=== PATIENT | male | born 1945 | race Hispanic/Latino ===

== ENCOUNTER 2018-07-12 10:40 | Inpatient (IN) | payer MEDICARE ==
--- NOTE | 2018-07-12 11:50 | ED PDOC ---
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 The patient notes that he was seen by his PMD a few weeks ago, who took blood work and called him asking him to be evaluated in the emergency department for his kidneys. Patient also reports left foot pain, at his toes. The patient is a poor historian. Patient denies fevers, chills, headache, dizziness, chest pain, shortness of breath, dyspnea on exertion, cough, abdominal pain, nausea, vomiting, diarrhea, back pain, neck pain, urinary/bowel changes, or any other complaint. PMD: Dr. Weinstein Time/Duration: Other (Several days) Symptom Onset: Sudden Symptom Course: Unchanged Activities at Onset: Rest, Light Context: Home Past Medical History - Provider Review Nursing Documentation Reviewed: Yes - Endocrine/Metabolic Hx Diabetes Mellitus Type 2: Yes - Psychiatric Hx Substance Use: No - Surgical History Other/Comment: Hernia repair. Foot surgery Family/Social History - Physician Review Nursing Documentation Reviewed: Yes Family/Social History: No Known Family HX Smoking Status: Unknown If Ever Smoked Hx Alcohol Use: No Hx Substance Use: No Allergies/Home Meds Allergies/Adverse Reactions: Allergies No Known Allergies Allergy (Verified 07/12/18 10:58) Home Medications: Home Meds Medication Instructions Recorded Confirmed Unobtainable 07/12/18 07/12/18 Review of Systems - Physician Review All systems were reviewed & negative as marked: Yes - Review of Systems Constitutional: absent: Fevers Respiratory: absent: SOB, Cough Cardiovascular: absent: [place] Gastrointestinal: absent: Abdominal Pain, Stool Changes, Diarrhea, Nausea, Vomiting, Appetite Changes Genitourinary Male: absent: Urinary Output Changes Musculoskeletal: Other (Left foot pain. ). absent: Back Pain, Neck Pain Neurological: absent: Headache, Dizziness Physical Exam Vital Signs Reviewed: Yes Vital Signs Temp Pulse Resp BP Pulse Ox 07/12/18 10:56 98.5 F 69 18 143/85 99 Temperature: Afebrile Blood Pressure: Normal Pulse: Regular Respiratory Rate: Normal Appearance: Positive for: Well-Appearing, Non-Toxic, Comfortable Pain Distress: None Mental Status: Positive for: Alert and Oriented X 3 - Systems Exam Head: Present: Atraumatic, Normocephalic Pupils: Present: PERRL Extroacular Muscles: Present: EOMI Conjunctiva: Present: Normal Mouth: Present: Moist Mucous Membranes Neck: Present: Normal Range of Motion Respiratory/Chest: Present: Clear to Auscultation, Good Air Exchange. No: Respiratory Distress, Accessory Muscle Use Cardiovascular: Present: Regular Rate and Rhythm, Normal S1, S2. No: Murmurs Abdomen: No: Tenderness, Distention, Peritoneal Signs Back: Present: Normal Inspection Upper Extremity: Present: Normal Inspection. No: Cyanosis, Edema Lower Extremity: Present: Normal Inspection, NORMAL PULSES, Neurovascularly Intact, Capillary Refill < 2 s, Other (L 2nd digit amputation, Ulceration to 3rd / 1st digit with yellowish d/c/ mildly TTP. No crepitus. ). No: Edema, Erythema Neurological: Present: GCS=15, CN II-XII Intact, Speech Normal Skin: Present: Warm, Dry, Normal Color. No: Rashes Psychiatric: Present: Alert, Oriented x 3, Normal Insight, Normal Concentration Medical Decision Making ED Course and Treatment: 07/12/18 11:51 Impression: A 72 year old male presents to the emergency department with a complaint of kidney issue and LLE foot pain. Sent by PMD mainly for kidney issues. Unk baseline kidney labs. Denies any trauma or fall. Notes chronic LLE pain. On exam L 2nd toe amputation with ?pus noted between 1st and 3rd digit. No fall or trauma. N/V intact in b/l LE. Plan: -- Left Foot X- Ray -- EKG -- Labs -- Blood Culture -- Reassess and disposition Progress Notes: 07/12/18 12:07:4: Podiatry resident called. 07/12/18 12:35 Appreciate consult w/ Delilah Chavez (covering for PMD) - Unk last Cr- likely EMIL HyperK, EKG pending Ordered, insulin + d50, albuterol 07/12/18 12:47 EKG 63, nsr, no stemi, non-sinusoidal, T waves non peaked. 07/12/18 14:[address] Anuradha reccomended arterial dopplers: ordered. pt in NAD. - Lab Interpretations I have reviewed the lab results: Yes - RAD Interpretation Narrative RAD Interpretations (Text): PROCEDURE: Left Foot Radiographs. Dictator : Rashaad Gonsales MD Report Date : 07/12/2018 14:20:02 IMPRESSION: Findings suspicious for multifocal osteomyelitis at the great toe, 1st metatarsal bone as well as the proximal segments of the 3rd and 4th metatarsal bones. Diffuse degenerative joint disease throughout the left foot. Prior 2nd digit subtotal amputation evident. MRI is available for follow-up if clinically warranted. Radiology Orders: 07/12/18 11:30 FOOT LEFT 3 VIEWS ROUTINE [RAD] Stat - EKG Interpretation EKG Interpretation (Text): EKG: Ordered, reviewed, and independently interpreted the EKG. Rate : 63 BPM Rhythm : NSR Interpretation : No STEMI. Interpreted by ED Physician: Yes Type: 12 lead EKG - Scribe Statement The provider has reviewed the documentation as recorded by the Scribe Serena Wei Provider Scribe Attestation: All medical record entries made by the Scribe were at my direction and personally dictated by me. I have reviewed the chart and agree that the record accurately reflects my personal performance of the history, physical exam, medical decision making, and the department course for this patient. I have also personally directed, reviewed, and agree with the discharge instructions and disposition. Disposition/Present on Arrival - Present on Arrival Any Indicators Present on Arrival: No History of DVT/PE: No History of Uncontrolled Diabetes: No Urinary Catheter: No History of Decub. Ulcer: No History Surgical Site Infection Following: None - Disposition Have Diagnosis and Disposition been Completed?: Yes Diagnosis: EMIL (acute kidney injury), Toe infection, Hyperkalemia Disposition Time: 14:04 Patient Problems: Current Active Problems Problem Status Onset EMIL (acute kidney injury) Acute Toe infection Acute Hyperkalemia Acute Condition: GOOD
[2018-07-12 12:10] LABS: BASO # 0.02 K/mm3 (0.0-2.0); BASO % 0.2 % (0.0-3.0); EOS # 0.5 (0.0-0.7); EOS % 5.8 % (1.5-5.0); GRAN # 6.23 (1.4-6.5); GRAN % 72.3 % (50.0-68.0); HEMOGLOBIN 9.8 g/dL (14.0-18.0); LYMPH # 1.3 (1.2-3.4); LYMPH % 14.5 % (22.0-35.0); MEAN CELL VOLUME 102.7 fl (80.0-105.0); MEAN CORPUSCULAR HGB CONC 32.1 g/dl (31.0-37.0); MEAN PLATELET VOLUME 10.1 fl (7.0-11.0); MONO # 0.6 (0.1-0.6); MONO % 7.2 % (1.0-6.0); RBC 2.97 10^6/uL (3.5-6.1); RED CELL DISTRIBUTION WIDTH 16.3 % (11.5-14.5); WHITE BLOOD COUNT 8.6 10^3/uL (4.5-11.0)
[2018-07-12 12:29] LABS: ALB/GLOB RATIO 1.4 (1.1-1.8); ALBUMIN 4.1 g/dL (3.0-4.8); ALT/SGPT 28 U/L (7-56); AST/SGOT 28 U/L (17-59); BLOOD UREA NITROGEN 58 mg/dL (7-21); GFR NON-AFRICAN AMERICAN 23
[2018-07-12] MEDS ORDERED: Albuterol 0.5% Inhal Sol (2.5 mg/0.5 ml) UD IH STA (12:37)
[2018-07-12] MEDS ORDERED: Dextrose 50% SYRINGE Inj (50 ml) IVP STA (12:38)
[2018-07-12] MEDS ORDERED: Insulin Regular 1 UNITS/0.01 ML ML IV ONE (12:39)
[2018-07-12] MEDS ORDERED: Piperacillin/Tazobact 3.375 gm 100 ML IVPB STA (12:52)
[2018-07-12] MEDS: Vancomycin 1gm in NS 250ml 1 GM/250 ML BAG IVPB STA ×2 (13:28→15:48)
--- NOTE | 2018-07-12 14:23 | RAD ---
Date of service: 07/12/2018 PROCEDURE: Left Foot Radiographs. HISTORY: L foot pain, 2nd toe amptuation COMPARISON: None. FINDINGS: BONES: Prior subtotal amputation 2nd digit. Soft tissue edema and heterogeneous bony changes are both erosive and productive at the proximal phalanx left great toe and distal segment 1st metatarsal bone as well as both sesamoid bones in a pattern suspicious for osteomyelitis and cellulitis. Erosive changes at the tuft of the distal phalanx great toe are suspicious for the same. Similar additional changes affect the cuboid and navicular bones as well as the proximal segments of the 3rd and 4th metatarsal bones, also suspicious for osteomyelitis. Diffuse osteopenia suggests osteoporosis. Vascular calcification identified in the dorsal and plantar soft tissues. JOINTS: No subluxation or dislocation. Degenerative changes are seen on a moderate basis diffusely throughout the joints of the left foot and the ankle. Gross hallux valgus deformity. SOFT TISSUES: See bone section above. OTHER FINDINGS: None. IMPRESSION: Findings suspicious for multifocal osteomyelitis at the great toe, 1st metatarsal bone as well as the proximal segments of the 3rd and 4th metatarsal bones. Diffuse degenerative joint disease throughout the left foot. Prior 2nd digit subtotal amputation evident. MRI is available for follow-up if clinically warranted.
--- NOTE | 2018-07-12 14:52 | CP.PCM.CON ---
History of Present Illness - History of Present Illness History of Present Illness: Podiatry Consult Note: Dr. Milton Heller 72M patient, with PMHx of DM, gout, arthritis, and 2nd digit amputation (09/2017), seen and evaluated for left foot ulceration. Patient states that he had a second digit amputation at [facility] however was sent to the ED for further evaluation of his blood work. He states that he has had the ulceration to his surgical site for a while, however it is not healing. He reports having gout problems to his feet and very bad arthritis that limits his motion. He denies any other pedal complaints at this time. Denies N/V/F/SOB/CP. PMHx: as above SHx: 2nd digit amputation Social: former tobacco use ALL: NKDA Review of Systems - Review of Systems Review of Systems: As per HPI Past Patient History - Past Social History Smoking Status: Unknown If Ever Smoked - ENDOCRINE/METABOLIC Hx Diabetes Mellitus Type 2: Yes - PSYCHIATRIC Hx Substance Use: No - SURGICAL HISTORY Other/Comment: Hernia repair. Foot surgery Meds Allergies/Adverse Reactions: Allergies Allergy/AdvReac Type Severity Reaction Status Date / Time No Known Allergies Allergy Verified 07/12/18 10:58 - Medications Medications: Current Medications Acetaminophen (Tylenol 325mg Tab) 650 mg PO Q6 PRN PRN Reason: TEMP>=99.5F Acetaminophen (Tylenol 650 Mg Supp) 650 mg RC Q6H PRN PRN Reason: TEMP>=99.5F Aspirin (Ecotrin) 81 mg PO DAILY [facility] Docusate Sodium (Colace) 100 mg PO TID [facility] Docusate Sodium (Colace) 100 mg PO TID [facility] Heparin Sodium (Porcine) (Heparin) 5,000 units SC Q8 [facility]; Protocol Insulin Human Lispro (Humalog Med) 0 units SC AC [facility]; Protocol Ondansetron HCl (Zofran Inj) 4 mg IVP Q4H PRN PRN Reason: Nausea/Vomiting Pantoprazole Sodium (Protonix Ec Tab) 40 mg PO 0600 [facility] Physical Exam - Constitutional Appears: No Acute Distress - Head Exam Head Exam: ATRAUMATIC, NORMOCEPHALIC - Extremities Exam Additional comments: B/L lower extremity focused exam: Vascular: DP/PT non-palpable, CFT > 3 seconds to digits x9, TG warm to cool bilaterally, +1 edema appreciated to dorsal aspect of feet b/l Ortho: Tenderness to palpation of gouty nodules to L foot, MMT 4/5, rigit HAV deformity bilaterally, rigid 3rd digit HT to left Neuro: Gross sensation intact, protective sensation diminished Derm: Ulceration noted to first interspace on the L at the site of previous second digit amputation. Measuring about 2 x 1 x .1 cm, 100% fibrotic base, mild serous drainage, no purulence, no tunneling appreciated. Interdigital maceration appreciated to other webspaces. Elongated, dystrophic nails x9 - Neurological Exam Neurological exam: Alert, Oriented x3 Results - Vital Signs Recent Vital Signs: Last Vital Signs Temp 98.4 F 07/12/18 13:43 Pulse 63 07/12/18 13:43 Resp 19 07/12/18 13:43 BP 119/61 07/12/18 13:43 Pulse Ox 100 07/12/18 13:43 - Labs Result Diagrams: 07/12/18 11:56 07/12/18 11:56 Labs: Laboratory Results - last 24 hr 07/12/18 07/12/18 11:56 11:56 WBC 8.6 RBC 2.97 L Hgb 9.8 L Hct 30.5 L MCV 102.7 MCH 33.0 MCHC 32.1 RDW 16.3 H Plt Count 284 MPV 10.1 Gran % 72.3 H Lymph % (Auto) 14.5 L [place] % (Auto) 7.2 H Eos % (Auto) 5.8 H Baso % (Auto) 0.2 Gran # 6.23 Lymph # (Auto) 1.3 [place] # (Auto) 0.6 Eos # (Auto) 0.5 Baso # (Auto) 0.02 Sodium 141 Potassium 5.9 H* Chloride 115 H Carbon Dioxide 19 L Anion Gap 13 BUN 58 H Creatinine 2.7 H Est GFR ( Amer) 28 Est GFR (Non-Af Amer) 23 Random Glucose 106 Calcium 9.0 Total Bilirubin 0.5 AST 28 ALT 28 Alkaline Phosphatase 66 Total Protein 7.1 Albumin 4.1 Globulin 3.0 Albumin/Globulin Ratio 1.4 Assessment & Plan - Assessment and Plan (Free Text) Assessment: 72M patient, with PMHx of DM, gout, arthritis, and 2nd digit amputation (09/2017), seen and evaluated for left foot ulceration and PAD. Plan: Patient seen and evaluated Discussed patient with Dr. Pina GREEN, WBC 8.6 L foot wound culture; pending L foot x-rays taken; suspicious for OM at hallux, 1st met, 3rd and 4th mets. Diffuse degenerative joint disease throughout L foot, prior 2nd digit amp Local wound care; betadine and DSD Lower extremity MRI ordered; pending Local wound care; betadine between digits, DSD Non-invasive vascular studies ordered; pending Vasc consult; reccs appreciated Will continue to follow Thank you for the consult and allowing us to partake in the care of this patient - Date & Time Date: 07/12/18 Time: 16:26
[2018-07-12 15:26] LABS: URIC ACID 6.2 mg/dL (3.5-8.5)
[2018-07-12 15:36] LABS: TROPONIN I < 0.01 ng/mL
[2018-07-12] MEDS ORDERED: Sod Polystyrene Sulf 15 gm/60 ml Susp PO STA (16:44)
--- NOTE | 2018-07-12 16:48 | CP.PCM.CON ---
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 PMD Dr Negron's office was contacted, however, could not speak to him as he is on vacation. Spoke with patient's son, Sheri, regarding patient's health. Patient states that his bilateral lower extremities are mildly swollen, and his left foot hurts. Patient reports mild redness, swelling in the left toes. Earlier this year, he had a left foot 2nd digit [place] [facility] [place] something [place] foot. Currently, denies loss of sensation, paresthesias, nausea, vomiting, fevers, cough, sob, chest pain, urinary frequency, hesitancy, dysuria. In ED, patient afebrile, vitals stable. Labs significant for Hgb 9.8, hyperkalemia 5.9, BUN/Cr 58/2.7. Patient given Vanc, Zosyn, regular insulin 10 u IV with D50, albuterol inhaler. 12 point ROS obtained and neg, except as per HPI. PMHx: DM, gout, arthritis SHx: 2nd digit amputation (09/2017), hernia repair All: NKA FH: reviewed, noncontributory Social: former tobacco and alcohol use, quit 5 years ago. lives in [facility]. Was visiting his son in [place]. Walks with a cane. Home Meds: ibuprofen, gabapentin 800 mg tid, ASA 81 mg, allopurinol 100 gm bid, colace 100 mg bid, ferrous sulfate 325 mg bid, protonix 40 mg daily, glipizide 10 mg 1 tab bid Review of Systems - Review of Systems All systems: reviewed and no additional remarkable complaints except Review of Systems: as per HPI Past Patient History - Past Social History Smoking Status: Unknown If Ever Smoked - ENDOCRINE/METABOLIC Hx Diabetes Mellitus Type 2: Yes - PSYCHIATRIC Hx Substance Use: No - SURGICAL HISTORY Other/Comment: Hernia repair. Foot surgery Meds Allergies/Adverse Reactions: Allergies Allergy/AdvReac Type Severity Reaction Status Date / Time No Known Allergies Allergy Verified 12/17/18 10:58 - Medications Medications: Current Medications Acetaminophen (Tylenol 325mg Tab) 650 mg PO Q6 PRN PRN Reason: TEMP>=99.5F Acetaminophen (Tylenol 650 Mg Supp) 650 mg RC Q6H PRN PRN Reason: TEMP>=99.5F Aspirin (Ecotrin) 81 mg PO DAILY [facility] Docusate Sodium (Colace) 100 mg PO TID [facility] Docusate Sodium (Colace) 100 mg PO TID [facility] Heparin Sodium (Porcine) (Heparin) 5,000 units SC Q8 [facility]; Protocol Last Admin: 07/12/18 15:49 Dose: 5,000 units Insulin Human Lispro (Humalog Med) 0 units SC AC [facility]; Protocol Ondansetron HCl (Zofran Inj) 4 mg IVP Q4H PRN PRN Reason: Nausea/Vomiting Pantoprazole Sodium (Protonix Ec Tab) 40 mg PO 0600 [facility] Physical Exam - Constitutional Appears: Non-toxic, No Acute Distress - Head Exam Head Exam: ATRAUMATIC, NORMOCEPHALIC - Eye Exam Eye Exam: EOMI, PERRL. absent: Conjunctival injection, Nystagmus, Scleral icterus Pupil Exam: NORMAL ACCOMODATION, PERRL. absent: Irregular, Miosis, Mydriatic - ENT Exam ENT Exam: Mucous Membranes Moist - Neck Exam Neck exam: Positive for: Full Rom - Respiratory Exam Respiratory Exam: Clear to Auscultation Bilateral, NORMAL BREATHING PATTERN. absent: Accessory Muscle Use, Rales, Rhonchi, Wheezes, Respiratory Distress, Stridor - Cardiovascular Exam Cardiovascular Exam: RRR, +S1, +S2. absent: Systolic Murmur - GI/Abdominal Exam GI & Abdominal Exam: Normal Bowel Sounds, Soft. absent: Distended, Firm, Guarding, Organomegaly, Rebound, Tenderness - Extremities Exam Extremities exam: Positive for: pedal edema Additional comments: + both lower extremities warm to touch, + dopplerable posterior tibialis pulses bilaterally. No dopplerable posterior tibialis pulses b/l. - Back Exam Back exam: NORMAL INSPECTION - Neurological Exam Neurological exam: Alert, Oriented x3 - Psychiatric Exam Psychiatric exam: Normal Affect, Normal Mood - Skin Skin Exam: Dry, Normal Color, Warm Results - Vital Signs Recent Vital Signs: Last Vital Signs Temp 98.1 F 07/12/18 15:34 Pulse 75 07/12/18 15:34 Resp 16 07/12/18 15:34 BP 117/59 L 07/12/18 15:34 Pulse Ox 100 07/12/18 15:34 - Labs Result Diagrams: 07/12/18 11:56 07/12/18 11:56 Labs: Laboratory Results - last 24 hr 07/12/18 07/12/18 07/12/18 11:56 11:56 15:10 WBC 8.6 RBC 2.97 L Hgb 9.8 L Hct 30.5 L MCV 102.7 MCH 33.0 MCHC 32.1 RDW 16.3 H Plt Count 284 MPV 10.1 Gran % 72.3 H Lymph % (Auto) 14.5 L [place] % (Auto) 7.2 H Eos % (Auto) 5.8 H Baso % (Auto) 0.2 Gran # 6.23 Lymph # (Auto) 1.3 [place] # (Auto) 0.6 Eos # (Auto) 0.5 Baso # (Auto) 0.02 ESR 30 H Sodium 141 Potassium 5.9 H* Chloride 115 H Carbon Dioxide 19 L Anion Gap 13 BUN 58 H Creatinine 2.7 H Est GFR ( Amer) 28 Est GFR (Non-Af Amer) 23 Random Glucose 106 Uric Acid 6.2 Calcium 9.0 Total Bilirubin 0.5 AST 28 ALT 28 Alkaline Phosphatase 66 Total Creatine Kinase 125 Troponin I < 0.01 Total Protein 7.1 Albumin 4.1 Globulin 3.0 Albumin/Globulin Ratio 1.4 Assessment & Plan - Assessment and Plan (Free Text) Assessment: 72 year old male with PMH DM, gout, amputation of 2nd digit of left foot, presents for left foot pain, found to have EMIL, hyperkalemia, anemia: Left foot ulcer: likely osteomyelitis vs cellulitis vs peripheral artery disease - foot x ray showed findings suspicious for multifocal osteomyelitis at the great toe, 1st metatarsal bone as well as the proximal segments of the 3rd and 4th metatarsal bones. Diffuse degenerative joint disease throughout the left foot. Prior 2nd digit subtotal amputation evident. - F/u venous, arterial doppler of LE. - Arterial doppler reviewed with Dr Lujan, will possibly go for angiogram (on thursday) - F/u esr, crp, blood cultures - afebrile, no leukocytosis - obtain optimal glycemic control. f/u A1C - ID, podiatry, cardio consulted. f/u recs. - Vascular surgery consult. - Vanc and Zosyn in ED. F/u ID recs. EMIL vs EMIL on CKD: 2/2 ibuprofen induced vs pre-renal vs obstruction - bladder scan - avoid NSAIDs - tylenol prn arthritic pain - BUN/Cr 58/2.7 (unknown baseline), ratio 21.48, indicative of pre-renal etiolog y. - f/u usom, serum osm, masha, ucl. calculate fena - IVF @ 80 - nephro consulted. f/u recs. - CPK normal - monitor Hyperkalemia: - K 5.9 on admission - EKG showed no peaked T waves - Given regular insulin 10 units IV with D50, albuterol - will give Kayexalate. repeat Potassium level in PM. - monitor CMP Marcocytic anemia: - Hgb 9.8, MCV 102.7 - F/u iron studies, b12, folate, MMA - vitals stable, monitor Constipation: - colace tid PPX: heparin subq, protonix Carb consistent diet Case discussed with Dr Ling.
[2018-07-12] MEDS ORDERED: Heparin25000 units/250ml 1/2NS 25,000 UNITS/250 ML BAG IV SCH (17:30)
[2018-07-12] MEDS ORDERED: Sodium Chloride 0.9% 1,000 ML IV SCH (18:15)
[2018-07-12 18:29] LABS: PARTIAL THROMBOPLASTIN TIME 27.5 Seconds (25.1-36.5); PROTHROMBIN TIME 11.4 SECONDS (9.4-12.5)
--- NOTE | 2018-07-12 18:44 | CP.PCM.HP ---
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 PMD Dr Negron's office was contacted, however, could not speak to him as he is on vacation. Spoke with patient's son, Sheri, regarding patient's health. Patient states that his bilateral lower extremities are mildly swollen, and his left foot hurts. Patient reports mild redness, swelling in the left toes. [place] this [place], [place] [facility] [place] Currently, denies loss of sensation, paresthesias, nausea, vomiting, fevers, cough, sob, chest pain, urinary frequency, hesitancy, dysuria. In ED, patient afebrile, vitals stable. Labs significant for Hgb 9.8, hyperkalemia 5.9, BUN/Cr 58/2.7. Patient given Vanc, Zosyn, regular insulin 10 u IV with D50, albuterol inhaler. 12 point ROS obtained and neg, except as per HPI. PMHx: DM, gout, arthritis SHx: 2nd digit amputation (09/2017), hernia repair All: NKA FH: reviewed, noncontributory Social: former tobacco and alcohol use, quit 5 years ago. lives in [facility]. Was visiting his son in [place]. Walks with a cane. Home Meds: ibuprofen, gabapentin 800 mg tid, ASA 81 mg, allopurinol 100 gm bid, colace 100 mg bid, ferrous sulfate 325 mg bid, protonix 40 mg daily, glipizide 10 mg 1 tab bid Present on Admission - Present on Admission Any Indicators Present on Admission: No History of DVT/PE: No History of Uncontrolled Diabetes: No Urinary Catheter: No Decubitus Ulcer Present: No Review of Systems - Review of Systems All systems: reviewed and no additional remarkable complaints except Review of Systems: as per HPI Past Patient History - Past Social History Smoking Status: Unknown If Ever Smoked - ENDOCRINE/METABOLIC Hx Diabetes Mellitus Type 2: Yes - PSYCHIATRIC Hx Substance Use: No - SURGICAL HISTORY Other/Comment: Hernia repair. Foot surgery Meds Allergies/Adverse Reactions: Allergies Allergy/AdvReac Type Severity Reaction Status Date / Time No Known Allergies Allergy Verified 07/12/18 10:58 Physical Exam - Additional Findings Additional findings: - Constitutional Appears: Non-toxic, No Acute Distress - Head Exam Head Exam: ATRAUMATIC, NORMOCEPHALIC - Eye Exam Eye Exam: EOMI, PERRL. absent: Conjunctival injection, Nystagmus, Scleral icterus Pupil Exam: NORMAL ACCOMODATION, PERRL. absent: Irregular, Miosis, Mydriatic - ENT Exam ENT Exam: Mucous Membranes Moist - Neck Exam Neck exam: Positive for: Full Rom - Respiratory Exam Respiratory Exam: Clear to Auscultation Bilateral, NORMAL BREATHING PATTERN. absent: Accessory Muscle Use, Rales, Rhonchi, Wheezes, Respiratory Distress, Stridor - Cardiovascular Exam Cardiovascular Exam: RRR, +S1, +S2. absent: Systolic Murmur - GI/Abdominal Exam GI & Abdominal Exam: Normal Bowel Sounds, Soft. absent: Distended, Firm, Gua rding, Organomegaly, Rebound, Tenderness - Extremities Exam Extremities exam: Positive for: pedal edema Additional comments: + both lower extremities warm to touch, + dopplerable posterior tibialis pulses bilaterally. No dopplerable posterior tibialis pulses b/l. - Back Exam Back exam: NORMAL INSPECTION - Neurological Exam Neurological exam: Alert, Oriented x3 - Psychiatric Exam Psychiatric exam: Normal Affect, Normal Mood - Skin Skin Exam: Dry, Normal Color, Warm Results - Vital Signs Recent Vital Signs: Last Vital Signs Temp 98.1 F 07/12/18 15:34 Pulse 75 07/12/18 15:34 Resp 16 07/12/18 15:34 BP 117/59 L 07/12/18 15:34 Pulse Ox 100 07/12/18 15:34 - Labs Result Diagrams: 07/12/18 11:56 07/12/18 11:56 Labs: Laboratory Results - last 24 hr 07/12/18 07/12/18 07/12/18 11:56 11:56 15:10 WBC 8.6 RBC 2.97 L Hgb 9.8 L Hct 30.5 L MCV 102.7 MCH 33.0 MCHC 32.1 RDW 16.3 H Plt Count 284 MPV 10.1 Gran % 72.3 H Lymph % (Auto) 14.5 L Powell % (Auto) 7.2 H Eos % (Auto) 5.8 H Baso % (Auto) 0.2 Gran # 6.23 Lymph # (Auto) 1.3 Powell # (Auto) 0.6 Eos # (Auto) 0.5 Baso # (Auto) 0.02 ESR 30 H PT INR APTT Sodium 141 Potassium 5.9 H* Chloride 115 H Carbon Dioxide 19 L Anion Gap 13 BUN 58 H Creatinine 2.7 H Est GFR ( Amer) 28 Est GFR (Non-Af Amer) 23 Random Glucose 106 Uric Acid 6.2 Calcium 9.0 Total Bilirubin 0.5 AST 28 ALT 28 Alkaline Phosphatase 66 Total Creatine Kinase 125 Troponin I < 0.01 Total Protein 7.1 Albumin 4.1 Globulin 3.0 Albumin/Globulin Ratio 1.4 07/12/18 18:12 WBC RBC Hgb Hct MCV MCH MCHC RDW Plt Count MPV Gran % Lymph % (Auto) Powell % (Auto) Eos % (Auto) Baso % (Auto) Gran # Lymph # (Auto) Powell # (Auto) Eos # (Auto) Baso # (Auto) ESR PT 11.4 INR 1.00 APTT 27.5 Sodium Potassium Chloride Carbon Dioxide Anion Gap BUN Creatinine Est GFR ( Amer) Est GFR (Non-Af Amer) Random Glucose Uric Acid Calcium Total Bilirubin AST ALT Alkaline Phosphatase Total Creatine Kinase Troponin I Total Protein Albumin Globulin Albumin/Globulin Ratio Assessment & Plan - Assessment and Plan (Free Text) Assessment: 72 year old male with PMH DM, gout, amputation of 2nd digit of left foot, prese nts for left foot pain, found to have EMIL, hyperkalemia, anemia: Left foot ulcer: likely osteomyelitis vs cellulitis vs peripheral artery disease - foot x ray showed findings suspicious for multifocal osteomyelitis at the great toe, 1st metatarsal bone as well as the proximal segments of the 3rd and 4th metatarsal bones. Diffuse degenerative joint disease throughout the left foot. Prior 2nd digit subtotal amputation evident. - F/u venous, arterial doppler of LE. - Arterial doppler reviewed with Dr Lujan, will possibly go for angiogram (on thursday) - F/u esr, crp, blood cultures - afebrile, no leukocytosis - obtain optimal glycemic control. f/u A1C - ID, podiatry, cardio consulted. f/u recs. - Vascular surgery consult. - Vanc and Zosyn in ED. F/u ID recs. EMIL vs EMIL on CKD: 2/2 ibuprofen induced vs pre-renal vs obstruction - bladder scan - avoid NSAIDs - tylenol prn arthritic pain - BUN/Cr 58/2.7 (unknown baseline), ratio 21.48, indicative of pre-renal etiology. - f/u usom, serum osm, masha, ucl. calculate fena - IVF @ 80 - nephro consulted. f/u recs. - CPK normal - monitor Hyperkalemia: - K 5.9 on admission - EKG showed no peaked T waves - Given regular insulin 10 units IV with D50, albuterol - will give Kayexalate. repeat Potassium level in PM. - monitor CMP Marcocytic anemia: - Hgb 9.8, MCV 102.7 - F/u iron studies, b12, folate, MMA - vitals stable, monitor Constipation: - colace tid PPX: heparin subq, protonix Carb consistent diet Case discussed with Dr Ling.
--- NOTE | 2018-07-12 19:37 | US ---
PROCEDURE: Lower extremity FAHAD exam HISTORY: Peripheral vascular disease with ischemic infection left great toe. Diabetes. PHYSICIAN(S): Milton Lujan MD. FINDINGS: The resting ABIs are severely abnormal: Right, 0.56 and left, 0.3 The brachial systolic pressures are symmetric. The right high thigh pressure is noncompressible. The right high thigh PVR waveform is normal. There is a borderline 20 mm gradient between the arm and left high thigh pressure. The left high thigh PVR waveform is slightly diminished in amplitude compared to the right. This could represent subtle left iliac occlusive disease. There is a 48 mm gradient across the right knee and a 67 mm gradient across the left knee. Findings are consistent with distal SFA, popliteal, and/or trifurcation disease bilaterally. The right ankle PVR waveform is moderately blunted. The left ankle PVR waveform is severely blunted. Findings are consistent with bilateral tibial disease. IMPRESSION: 1. Severely abnormal ABIs at rest 2. Bilateral distal SFA, popliteal, and/or trifurcation disease. 3. Bilateral tibial disease 4. Possible left iliac occlusive disease. 5. If clinically indicated, conventional arteriography, CTA runoff, or MRA with gadolinium runoff can be performed.
--- NOTE | 2018-07-12 19:52 | US ---
PROCEDURE: Left lower extremity venous US HISTORY: Leg pain and swelling. Evaluate for DVT. PHYSICIAN(S): Milton Lujan MD. TECHNIQUE: Duplex sonography and color-flow Doppler with graded compression were used to evaluate the deep venous system of the left lower extremity. FINDINGS: The visualized deep venous system of the left lower extremity is sonographically normal and compressible. Normal wave forms and augmentation are seen. There is no sonographic evidence for deep venous thrombosis in the visualized segments of the left lower extremity. IMPRESSION: 1. No sonographic evidence for deep venous thrombosis in the visualized segments of the left lower extremity.
[2018-07-12 20:22] LABS: URINE BILIRUBIN NEGATIVE (NEGATIVE); URINE BLOOD NEGATIVE (NEGATIVE); URINE GLUCOSE (UA) NEGATIVE (NEGATIVE); URINE LEUKOCYTE ESTERASE NEGATIVE Leu/uL (NEGATIVE); URINE PROTEIN NEGATIVE mg/dL (<30 mg/dL); URINE UROBILINOGEN 0.2 E.U./dL (<1 E.U./dL)
[2018-07-12 21:06] LABS: IRON 79 ug/dL (45-180)
[2018-07-12 21:07] LABS: URIC ACID 6.2 mg/dL (3.5-8.5)
[2018-07-12 21:13] LABS: OSMOLALITY,URINE 537 mosm/kg (300-1000)
[2018-07-12 21:15] LABS: % IRON SATURATION 28 % (20-55); TOTAL IRON BINDING CAPACITY 288 ug/dL (261-462)
[2018-07-12 21:18] LABS: URINE APPEARANCE CLEAR (CLEAR)
[2018-07-12 21:19] LABS: B-TYPE NATRIURETIC PEPTIDE 942 pg/mL (0-450); TROPONIN I < 0.01 ng/mL
[2018-07-12 21:52] LABS: BLOOD UREA NITROGEN 53 mg/dL (7-21); CALCIUM 9.3 mg/dL (8.4-10.5); GFR NON-AFRICAN AMERICAN 24
[2018-07-12 22:30] VITALS: BMI 24.2
[2018-07-12] MEDS ORDERED: Pneumococcal 23-Valent Vaccine IM ONE (22:30)
[2018-07-12] MEDS ORDERED: Influenza Vaccine 60 mcg/0.5 mL SYR (4YR UP) IM ONE (22:30)
[2018-07-13] MEDS ORDERED: Pantoprazole 40 mg EC Tab PO SCH (06:00)
[2018-07-13 06:57] LABS: BASO # 0.03 K/mm3 (0.0-2.0); BASO % 0.3 % (0.0-3.0); EOS # 0.6 (0.0-0.7); EOS % 6.5 % (1.5-5.0); GRAN # 6.29 (1.4-6.5); GRAN % 70.6 % (50.0-68.0); HEMOGLOBIN 9.9 g/dL (14.0-18.0); LYMPH # 1.2 (1.2-3.4); LYMPH % 13.1 % (22.0-35.0); MEAN CELL VOLUME 103.4 fl (80.0-105.0); MEAN CORPUSCULAR HEMOGLOBIN 33.6 pg (25.0-35.0); MEAN CORPUSCULAR HGB CONC 32.5 g/dl (31.0-37.0); MEAN PLATELET VOLUME 10.2 fl (7.0-11.0); MONO # 0.9 (0.1-0.6); MONO % 9.5 % (1.0-6.0); RBC 2.95 10^6/uL (3.5-6.1); RED CELL DISTRIBUTION WIDTH 16.5 % (11.5-14.5); WHITE BLOOD COUNT 8.9 10^3/uL (4.5-11.0)
[2018-07-13 07:12] LABS: ALB/GLOB RATIO 1.4 (1.1-1.8); ALBUMIN 4.1 g/dL (3.0-4.8); BILIRUBIN,DIRECT 0.3 mg/dL (0.0-0.4); CALCIUM 9.1 mg/dL (8.4-10.5)
[2018-07-13] MEDS ORDERED: Sod Polystyrene Sulf 15 gm/60 ml Susp PO ONE (07:34)
--- NOTE | 2018-07-13 08:50 | RAD ---
Date of service: 07/12/2018 HISTORY: r/o effusion COMPARISON: No prior. FINDINGS: LUNGS: No active pulmonary disease. PLEURA: No significant pleural effusion identified, no pneumothorax apparent. CARDIOVASCULAR: No aortic atherosclerotic calcification present. Normal cardiac size. No pulmonary vascular congestion. OSSEOUS STRUCTURES: No significant abnormalities. VISUALIZED UPPER ABDOMEN: Normal. OTHER FINDINGS: None. IMPRESSION: No active disease.
--- NOTE | 2018-07-13 09:04 | US ---
HISTORY: Leg pain and swelling. Evaluate for DVT PHYSICIAN(S): Milton Lujan MD. TECHNIQUE: Duplex sonography and color-flow Doppler with graded compression were used to evaluate the deep venous systems of both lower extremities. FINDINGS: The visualized deep venous systems of both lower extremities are sonographically normal and compressible. Normal wave forms and augmentation are seen. There is no sonographic evidence for deep venous thrombosis in the visualized segments of both lower extremities. IMPRESSION: No sonographic evidence for deep venous thrombosis in the visualized segments of both lower extremities.
[2018-07-13] MEDS: Insulin Lispro (humaLOG) MEDIUM Coverage SC SCH ×3 (10:22→17:42)
--- NOTE | 2018-07-13 11:09 | CARD ---
APPROVED REPORT Date of service: 07/12/2018 EKG Measurement Heart [id number] <Conclusion> Normal sinus rhythm Left axis deviation NSSTW changes
--- NOTE | 2018-07-13 12:05 | PN ---
DATE: 07/13/2018 SUBJECTIVE: The patient is in room 275, bed 2. Overnight nurse's notes were reviewed. No adverse events were documented. The patient did respond to treatment for hyperkalemia with almost normalization of the potassium last night up to 5.2-5.3. PHYSICAL EXAMINATION: VITAL SIGNS: T-max 98.4. Telemetry shows normal sinus rhythm, heart rate 75, blood pressure 117/59, respiration 16, O2 sat 100%. GENERAL: The patient is alert, awake, responsive. Head examination normocephalic, atraumatic. HEENT examination shows pinkish pale conjunctivae. Anicteric sclerae. No oropharyngeal lesion. No neck rigidity. CHEST: Kyphosis. LUNG: Shows no audible crackle, rales or wheezing. CARDIOVASCULAR: S1, S2 regular rhythm. Questionable soft systolic murmur left sternal border, right second intercostal space, left second intercostal space. ABDOMEN: Soft. Positive bowel sounds. GENITALIA: Male. RECTAL: Examination is deferred. EXTREMITIES: Shows trace swelling of the lower extremities. Positive erythema and swelling of the left toe with poor nail hygiene noted. Both feet are warm to touch. NEUROLOGIC: The patient is alert, awake, responsive, is able to move upper and lower extremity without assistance. Gait examination is not tested. DIAGNOSTICS: 07/13/2018, WBC 8.9, hemoglobin/hematocrit 9.9/30.5, platelet 285. ESR is 30. This morning's chemistry shows sodium 144, potassium is down to 5.2, chloride 114, CO2 of 24, BUN 44, creatinine is still 2.1, calcium 9.1, phosphorus 3.7, magnesium 2.6, glucose 102. LFTs are normal. Cholesterol 136, LDL is elevated at 82, HDL is low at 21. EKG shows normal sinus rhythm, left axis deviation. X-ray of the left foot was reviewed. Noninvasive arterial Doppler was reviewed. IMPRESSION AND PLAN: 1. Acute renal failure, acute kidney injury, etiology undetermined. 2. Non-hemolyzed hyperkalemia. 3. Left foot great toe osteomyelitis, left foot first metatarsal third and fourth metatarsal bone osteomyelitis. 4. Left foot second toe amputation. 5. 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 6. Left distal foot cellulitis. 7. Left foot osteopenia, osteoporosis. 8. Normocytic anemia possibly anemia of chronic disease. 9. Acute kidney injury with possibly underlying chronic kidney disease stage IV. 10. Borderline hyperlipidemia with decreased HDL. 11. Left axis deviation. 12. Bilateral lower extremity peripheral arterial disease with bilateral superficial femoral arterial disease and popliteal and trifurcation peripheral arterial disease. 13. Bilateral tibial peripheral arterial disease. 14. Left iliac arterial disease. 15. Severely abnormal ankle-brachial indexes of the lower extremity, right lower extremity ankle-brachial index of 0.6 and left lower extremity ankle-brachial index of 0.3. 16. Possible history of hypertension. PLAN: Plan at this time, the patient has been given a dose of Kayexalate 30 g today. The patient is awaiting Infectious Disease, Nephrology, Interventional Radiology, Cardiology, and Podiatry evaluation. The patient is started on broad-spectrum IV antibiotic with Teflaro dose adjusted for renal profile. The patient has been consulted with Interventional Radiology, Podiatry, Infectious Disease and Nephrology. Their recommendations are awaited. Venous Doppler of the right lower extremity has been ordered, since yesterday only left lower extremity venous Doppler was done. Patient's echo with Doppler is pending. At present, we will await for further recommendations by all the physician involved in the care of the patient. The patient's further management will be dependent upon the patient's clinical condition, hemodynamic status and as per the patient response to therapeutic intervention, as per the patient's diagnostic test results and as per recommendation by all the physician involved in the care of the patient. The patient is updated about his condition, diagnosis, treatment plan, treatment options at length. All questions concerned answered. Dictated and electronically signed, not read. Niranjan Ling MD
--- NOTE | 2018-07-13 12:11 | CP.PCM.APN ---
Subjective - Date & Time of Evaluation Date of Evaluation: 07/13/18 Time of Evaluation: 10:00 - Subjective Subjective: pt seen and examined at bedside Review of Systems - Constitutional Constitutional: As Per HPI. absent: Anorexia, Chills, Daytime Sleepiness, Excessive Sweating, Fatigue, Fever, Frequent Falls, Headache, Increased Appetite, Lethargy, Malaise, Night Sweats, Snoring, Sleep Apnea, Weight Gain, Weight Loss, Weakness, Other Objective - Vital Signs/Intake and Output Vital Signs (last 24 hours): Temp Pulse Resp BP Pulse Ox 98.1 F 75 16 117/59 L 100 07/12/18 15:34 07/12/18 22:05 07/12/18 22:05 07/12/18 15:34 07/12/18 15:34 Intake and Output: 07/13/18 07/13/18 06:59 18:59 Intake Total 960 960 Output Total 3 Balance 957 960 - Medications Medications: Current Medications Acetaminophen (Tylenol 325mg Tab) 650 mg PO Q6 PRN PRN Reason: TEMP>=99.5F Last Admin: 07/13/18 06:19 Dose: 650 mg Acetaminophen (Tylenol 650 Mg Supp) 650 mg RC Q6H PRN PRN Reason: TEMP>=99.5F Allopurinol (Zyloprim) 100 mg PO DAILY [facility] Last Admin: 07/13/18 10:21 Dose: 100 mg Aspirin (Ecotrin) 81 mg PO DAILY [facility] Last Admin: 07/13/18 10:21 Dose: 81 mg Atorvastatin Calcium (Lipitor) 20 mg PO DIN [facility] Docusate Sodium (Colace) 100 mg PO TID [facility] Last Admin: 07/13/18 10:21 Dose: 100 mg Ferrous Sulfate (Feosol) 324 mg PO BID [facility] Last Admin: 07/13/18 10:21 Dose: 324 mg Heparin Sodium (Porcine) (Heparin) 5,000 units SC Q8 [facility]; Protocol Last Admin: 07/13/18 07:40 Dose: 5,000 units Ceftaroline Fosamil 400 mg/ (Sodium Chloride) 100 mls @ 100 mls/hr IVPB Q12 [facility]; Protocol Stop: 07/13/18 22:59 Last Admin: 07/13/18 10:21 Dose: 100 mls/hr Insulin Human Lispro (Humalog Med) 0 units SC AC [facility]; Protocol Last Admin: 07/13/18 10:22 Dose: Not Given Ondansetron HCl (Zofran Inj) 4 mg IVP Q4H PRN PRN Reason: Nausea/Vomiting Pantoprazole Sodium (Protonix Ec Tab) 40 mg PO 0600 [facility] Last Admin: 07/13/18 05:49 Dose: 40 mg - Labs Labs: 07/13/18 06:00 07/13/18 06:00 PT 11.4 SECONDS (9.4-12.5) 07/12/18 18:12 INR 1.00 07/12/18 18:12 APTT 27.5 Seconds (25.1-36.5) 07/12/18 18:12 - Constitutional Appears: Non-toxic, No Acute Distress - Eye Exam Eye Exam: Normal appearance Pupil Exam: NORMAL ACCOMODATION - Neck Exam Neck Exam: Normal Inspection - Cardiovascular Exam Cardiovascular Exam: +S1, +S2 - GI/Abdominal Exam GI & Abdominal Exam: Soft, Normal Bowel Sounds - Extremities Exam Additional comments: left 2nd digit amputation, 3rd digit ulceration, 1st digit TTP, no CCE - Neurological Exam Neurological Exam: Alert, Awake - Psychiatric Exam Psychiatric exam: Normal Affect, Normal Mood - Skin Skin Exam: Dry, Intact Assessment and Plan - Assessment and Plan (Free Text) Plan: Impressions Foot X-Ray 07/12/18 11:30 IMPRESSION: Findings suspicious for multifocal osteomyelitis at the great toe, 1st metatarsal bone as well as the proximal segments of the 3rd and 4th metatarsal bones. Diffuse degenerative joint disease throughout the left foot. Prior 2nd digit subtotal amputation evident. MRI is available for follow-up if clinically warranted. Chest X-Ray 07/12/18 17:52 IMPRESSION: No active disease. Extremity Ultrasound 07/13/18 07:47 IMPRESSION: No sonographic evidence for deep venous thrombosis in the visualized segments of both lower extremities. Extremity Ultrasound 07/12/18 11:58 IMPRESSION: 1. No sonographic evidence for deep venous thrombosis in the visualized segments of the left lower extremity. Extremity Ultrasound 07/12/18 13:59 IMPRESSION: 1. Severely abnormal ABIs at rest 2. Bilateral distal SFA, popliteal, and/or trifurcation disease. 3. Bilateral tibial disease 4. Possible left iliac occlusive disease. 5. If clinically indicated, conventional arteriography, CTA runoff, or MRA with gadolinium runoff can be performed. All Active Problems EMIL (acute kidney injury) (Acute) Hyperkalemia (Acute) Toe infection (Acute) 72 yr old male who has pmh sig for dm, left foot 2nd toe amputation who was sent in by PMD for eval of abnornal labs and found to be kyperkalemic with EMIL and left Lower ext pain that is now undergoing workup and evaluation for possible PVD as demonstrated by LE utrasound and osteomyslitis of left foot as reported. pt foot xray noted LE US noted Pt being evaluated by vascular, renal and ID will follow MRI discussed with Dr Ling and IDR team
--- NOTE | 2018-07-13 12:38 | CP.PCM.PN ---
Subjective - Date & Time of Evaluation Date of Evaluation: 07/13/18 Time of Evaluation: 12:30 - Subjective Subjective: Medicine Progress Note for Dr. Ling Patient seen and examined at bedside. No acute overnight events. Patient does not know his medications and could not name his pharmacy. It is unclear whether patient is aware of his PAD. Patient deneis CP, SOB, n/v/d, abdominal pain, fever, chills, SNELL, or dizziness. Objective - Vital Signs/Intake and Output Vital Signs (last 24 hours): Temp Pulse Resp BP Pulse Ox 98.1 F 75 16 117/59 L 100 07/12/18 15:34 07/12/18 22:05 07/12/18 22:05 07/12/18 15:34 07/12/18 15:34 Intake and Output: 07/13/18 07/13/18 06:59 18:59 Intake Total 960 960 Output Total 3 Balance 957 960 - Medications Medications: Current Medications Acetaminophen (Tylenol 325mg Tab) 650 mg PO Q6 PRN PRN Reason: TEMP>=99.5F Last Admin: 07/13/18 06:19 Dose: 650 mg Acetaminophen (Tylenol 650 Mg Supp) 650 mg RC Q6H PRN PRN Reason: TEMP>=99.5F Allopurinol (Zyloprim) 100 mg PO DAILY [facility] Last Admin: 07/13/18 10:21 Dose: 100 mg Aspirin (Ecotrin) 81 mg PO DAILY [facility] Last Admin: 07/13/18 10:21 Dose: 81 mg Atorvastatin Calcium (Lipitor) 20 mg PO DIN [facility] Docusate Sodium (Colace) 100 mg PO TID [facility] Last Admin: 07/13/18 10:21 Dose: 100 mg Ferrous Sulfate (Feosol) 324 mg PO BID [facility] Last Admin: 07/13/18 10:21 Dose: 324 mg Heparin Sodium (Porcine) (Heparin) 5,000 units SC Q8 [facility]; Protocol Last Admin: 07/13/18 07:40 Dose: 5,000 units Ceftaroline Fosamil 400 mg/ (Sodium Chloride) 100 mls @ 100 mls/hr IVPB Q12 [facility]; Protocol Stop: 07/13/18 22:59 Last Admin: 07/13/18 10:21 Dose: 100 mls/hr Insulin Human Lispro (Humalog Med) 0 units SC AC [facility]; Protocol Last Admin: 07/13/18 10:22 Dose: Not Given Ondansetron HCl (Zofran Inj) 4 mg IVP Q4H PRN PRN Reason: Nausea/Vomiting Pantoprazole Sodium (Protonix Ec Tab) 40 mg PO 0600 [facility] Last Admin: 07/13/18 05:49 Dose: 40 mg - Labs Labs: 07/13/18 06:00 07/13/18 06:00 PT 11.4 SECONDS (9.4-12.5) 07/12/18 18:12 INR 1.00 07/12/18 18:12 APTT 27.5 Seconds (25.1-36.5) 07/12/18 18:12 - Constitutional Appears: No Acute Distress - Head Exam Head Exam: NORMAL INSPECTION - Eye Exam Eye Exam: Normal appearance Pupil Exam: NORMAL ACCOMODATION - ENT Exam ENT Exam: Mucous Membranes Moist, Normal Exam - Respiratory Exam Respiratory Exam: Clear to Ausculation Bilateral. absent: Rales, Rhonchi, Wheezes - Cardiovascular Exam Cardiovascular Exam: REGULAR RHYTHM, RRR. absent: Gallop, Rubs, Murmur - GI/Abdominal Exam GI & Abdominal Exam: Soft. absent: Tenderness - Extremities Exam Additional comments: + both lower extremities warm to touch, + dopplerable posterior tibialis pulses bilaterally. - Back Exam Back Exam: NORMAL INSPECTION - Neurological Exam Neurological Exam: Alert, Awake, CN II-XII Intact, Oriented x3 - Psychiatric Exam Psychiatric exam: Normal Affect - Skin Skin Exam: Normal Color Assessment and Plan - Assessment and Plan (Free Text) Assessment: 72 year old male with PMH DM, gout, amputation of 2nd digit of left foot, presents for left foot pain, found to have EMIL, hyperkalemia, anemia. Patient's PMD's office was called to obtain pharmacy and medication information. However, office is closed until July 28. Attempted to call family, but no answer. Plan: Left Foot Ulcer/Osteomyelitis 2/2 PAD - foot x ray showed findings suspicious for multifocal osteomyelitis at the great toe, 1st metatarsal bone as well as the proximal segments of the 3rd and 4th metatarsal bones. Diffuse degenerative joint disease throughout the left foot. Prior 2nd digit subtotal amputation evident. - B/L venous duplex negative for DVT - Foot MRI ordered - Arterial US: FAHAD R 0.56, L 0.3; B/L distal SFA, politeal, and trifurcation; B/L tibial disease - Elevated ESR and hsCRP - Blood, urine, wound cultures ordered - ID, podiatry, cardio, IR consulted. f/u recs. - Cont Vanco EMIL vs EMIL on CKD - Likely prerenal - Renal US ordered - tylenol prn arthritic pain - F/u CKD work up per nephro - nephro consulted. f/u recs. - Avoid nephrotoxic agents Hyperkalemia - Improved after d50/insulin and kayexelate - Mildly elevated today, gave another dose of kayexelate - Will monitor Anemia of Chronic Disease - Cont PO iron DM - HgbA1c 7.3% - Cont ISS - Accucheck ACHS Constipation - colace tid PPX: heparin subq, protonix Carb consistent diet Pt seen and discussed in detail with Dr. Ling. Wilman Alex DO PGY2
--- NOTE | 2018-07-13 12:49 | CP.PCM.CON ---
History of Present Illness - History of Present Illness History of Present Illness: Nephrology Consultation Note: Assessment: Stable Acute Kidney Injury (N17.9) ? etiology. possible NSAIDs: improving Hyperkalemia metabolic acidosis Diabetic chronic Kidney Disease (E11.22) Hypertensive Chronic Kidney Disease (I12.9) ? 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 PVD Plan No acute need for renal replacement therapy at this time. Hypertension control with meds as ordered. Maintain hemodynamics stable. Avoid hypotension. Patient not on ACEI/ARB due to recent EMIL and hyperkalemia Monitor Input/Output, daily weights and renal function with basic metabolic panel low K diet and medical management of hyperkalemia as needed continue with iron and MVI please obtain records from PCP about past kidney function results Check urine spot protein/creatinine, albumin/creatinine ratio, urine for eosinophils. Check uric acid, renal sonogram Anemia work up with TSAT/Ferritin/Vitamin B12/folate, serum protein electrophoresis with immunofixation, serum free light chain assay ([place]/Lambda) Check for 25-OH vitamin D, iPTH, phosphorus level. Dose meds/antibiotics for reduced GFR. Avoid fleets enema/magnesium based laxatives. Avoid nephrotoxins/NSAIDs/ iodinated contrast (unless needed emergently) Glycemic control Further work up/management as per primary team Thanks for allowing me to participate in care of your patient. Will follow patient with you. Please call if any Qs. had d/w team Dr Anjum Padron Office: [phone] Chief Complaint; left foot ulcer Reason for consult: Acute Kidney Injury HPI: Pt is a 72 M with hx of diabetes Mellitus (30 years), hypertension (years) ? PVD, gout presented with complaints of abnormal kidney fxn and left foot ulcer, being managed for EMIL and possible PVD Denies OTC/herbal meds or NSAIDs. pt says he used to take motrin in past but not these days. No recent iodinated contrast exposure. No obvious episodes of low BP. pt not aware about kidney disease in past ROS: Cardiovascular: No chest pain. Pulmonary: No shortness of breath Gastrointestinal: denies abdominal pain No nausea. No vomiting. Genitourinary: No pain while urinating. Denies blood in urine. sometimes feels hesitancy All other negative except as mentioned in HPI Physical Examination: General Appearance: Comfortable, in no acute respiratory distress, co-operative . Vitals reviewed and noted as below Head; Atraumatic, normocephalic ENT: no ulcers no thrush. Tongue is midline. Oropharynx: no rash or ulcers. EYES: Pupils are equal, round and reactive to light accommodation. Eye muscles and extraocular movement intact. Sclera is anicteric. Neck; supple no lymphadenopathy, no thyromegaly or bruit Lungs: Normal respiratory rate/effort. Breath sounds bilateral equal and clear Heart: Normal rate. s1s2 normal. No rub or gallop. Extremities: no edema. No varicose veins. left foot great toe erythema. pedal pulses not palpable both feets Neurological: Patient is alert, awake and oriented to person, place and time. No focal deficit. Strength bilateral appropriate and equal Skin: Warm and dry. Normal turgor. No rash. Palpitation: Normal elasticity for age Abdomen: Abdomen is soft. Bowel sounds +. There is no abdominal tenderness, no guarding/rigidity no organomegaly Psych: lack insight and normal affect/mood MSK: no joint tenderness or swelling. Digits and nails normal, no deformity : kidney or bladder not palpable Labs/imaging reviewed. Past medical history, past surgical history, family history, social history, allergy reviewed and noted as below Family hx: no hx of CKD. 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 r ft +1 ankle edema, bunyons and great toes crooked b/l - MUSCULOSKELETAL/RHEUMATOLOGICAL Hx Falls: No - GASTROINTESTINAL Hx Gastrointestinal Disorders: No - GENITOURINARY/GYNECOLOGICAL Hx Genitourinary Disorders: No - PSYCHIATRIC Hx Substance Use: No - SURGICAL HISTORY Hx Surgeries: Yes Hx Amputation: Yes (2nd toe left foot) Other/Comment: Hernia repair. Foot surgery Meds Allergies/Adverse Reactions: Allergies Allergy/AdvReac Type Severity Reaction Status Date / Time No Known Allergies Allergy Verified 07/12/18 10:58 - Medications Medications: Current Medications Acetaminophen (Tylenol 325mg Tab) 650 mg PO Q6 PRN PRN Reason: TEMP>=99.5F Last Admin: 07/13/18 06:19 Dose: 650 mg Acetaminophen (Tylenol 650 Mg Supp) 650 mg RC Q6H PRN PRN Reason: TEMP>=99.5F Allopurinol (Zyloprim) 100 mg PO DAILY [facility] Last Admin: 07/13/18 10:21 Dose: 100 mg Aspirin (Ecotrin) 81 mg PO DAILY [facility] Last Admin: 07/13/18 10:21 Dose: 81 mg Atorvastatin Calcium (Lipitor) 20 mg PO DIN [facility] Docusate Sodium (Colace) 100 mg PO TID [facility] Last Admin: 07/13/18 10:21 Dose: 100 mg Ferrous Sulfate (Feosol) 324 mg PO BID [facility] Last Admin: 07/13/18 10:21 Dose: 324 mg Heparin Sodium (Porcine) (Heparin) 5,000 units SC Q8 [facility]; Protocol Last Admin: 07/13/18 07:40 Dose: 5,000 units Vancomycin HCl (Vancomycin 1gm) 1 gm in 250 mls @ 167 mls/hr IVPB DAILY [facility]; Protocol Insulin Human Lispro (Humalog Med) 0 units SC AC [facility]; Protocol Last Admin: 07/13/18 10:22 Dose: Not Given Ondansetron HCl (Zofran Inj) 4 mg IVP Q4H PRN PRN Reason: Nausea/Vomiting Pantoprazole Sodium (Protonix Ec Tab) 40 mg PO 0600 [facility] Last Admin: 07/13/18 05:49 Dose: 40 mg Results - Vital Signs Recent Vital Signs: Last Vital Signs Temp 98.1 F 07/12/18 15:34 Pulse 75 07/12/18 22:05 Resp 16 07/12/18 22:05 BP 117/59 L 07/12/18 15:34 Pulse Ox 100 07/12/18 15:34 - Labs Result Diagrams: 07/13/18 06:00 07/13/18 06:00 Labs: Laboratory Results - last 24 hr 07/12/18 07/12/18 07/12/18 11:56 15:10 18:12 WBC RBC Hgb Hct MCV MCH MCHC RDW Plt Count MPV Gran % Lymph % (Auto) [place] % (Auto) Eos % (Auto) Baso % (Auto) Gran # Lymph # (Auto) [place] # (Auto) Eos # (Auto) Baso # (Auto) ESR 30 H Retic Count PT 11.4 INR 1.00 APTT 27.5 Sodium 141 Potassium 5.9 H* Chloride 115 H Carbon Dioxide 19 L Anion Gap 13 BUN 58 H Creatinine 2.7 H Est GFR ( Amer) 28 Est GFR (Non-Af Amer) 23 POC Glucose (mg/dL) Random Glucose 106 Hemoglobin A1c Serum Osmolality Uric Acid 6.2 Calcium 9.0 Phosphorus Magnesium Iron TIBC % Saturation Total Bilirubin 0.5 Direct Bilirubin AST 28 ALT 28 Alkaline Phosphatase 66 Total Creatine Kinase 125 Troponin I < 0.01 C-React Prot High Sens NT-Pro-B Natriuret Pep Total Protein 7.1 Albumin 4.1 Globulin 3.0 Albumin/Globulin Ratio 1.4 Triglycerides Cholesterol LDL Cholesterol Direct HDL Cholesterol Urine Color Urine Appearance Urine pH Ur Specific [place] Urine Protein Urine Glucose (UA) Urine Ketones Urine Blood Urine Nitrate Urine Bilirubin Urine Urobilinogen Ur Leukocyte Esterase Urine Osmolality Ur Random Sodium Urine Chloride Blood Type Antibody Screen BBK History Checked 07/12/18 07/12/18 07/12/18 20:18 20:18 20:18 WBC RBC Hgb Hct MCV MCH MCHC RDW Plt Count MPV Gran % Lymph % (Auto) [place] % (Auto) Eos % (Auto) Baso % (Auto) Gran # Lymph # (Auto) [place] # (Auto) Eos # (Auto) Baso # (Auto) ESR Retic Count PT INR APTT Sodium Potassium Chloride Carbon Dioxide Anion Gap BUN Creatinine Est GFR ( Amer) Est GFR (Non-Af Amer) POC Glucose (mg/dL) Random Glucose Hemoglobin A1c Serum Osmolality Uric Acid Calcium Phosphorus Magnesium Iron TIBC % Saturation Total Bilirubin Direct Bilirubin AST ALT Alkaline Phosphatase Total Creatine Kinase Troponin I C-React Prot High Sens NT-Pro-B Natriuret Pep Total Protein Albumin Globulin Albumin/Globulin Ratio Triglycerides Cholesterol LDL Cholesterol Direct HDL Cholesterol Urine Color yellow Urine Appearance Clear Urine pH 6.0 Ur Specific [place] 1.020 Urine Protein Negative Urine Glucose (UA) Negative Urine Ketones Negative Urine Blood Negative Urine Nitrate Negative Urine Bilirubin Negative Urine Urobilinogen 0.2 Ur Leukocyte Esterase Negative Urine Osmolality 537 Ur Random Sodium 113 Urine Chloride 90 Blood Type Antibody Screen BBK History Checked 07/12/18 07/12/18 07/12/18 20:53 20:53 20:53 WBC RBC Hgb Hct MCV MCH MCHC RDW Plt Count MPV Gran % Lymph % (Auto) [place] % (Auto) Eos % (Auto) Baso % (Auto) Gran # Lymph # (Auto) [place] # (Auto) Eos # (Auto) Baso # (Auto) ESR Retic Count 1.04 PT INR APTT Sodium 142 Potassium 5.1 H Chloride 113 H Carbon Dioxide 20 L Anion Gap 15 BUN 53 H Creatinine 2.6 H Est GFR ( Amer) 30 Est GFR (Non-Af Amer) 24 POC Glucose (mg/dL) Random Glucose 103 Hemoglobin A1c Serum Osmolality Uric Acid 6.2 Calcium 9.3 Phosphorus Magnesium Iron 79 TIBC 288 % Saturation 28 Total Bilirubin Direct Bilirubin AST ALT Alkaline Phosphatase Total Creatine Kinase 104 Troponin I < 0.01 C-React Prot High Sens NT-Pro-B Natriuret Pep 942 H Total Protein Albumin Globulin Albumin/Globulin Ratio Triglycerides Cholesterol LDL Cholesterol Direct HDL Cholesterol Urine Color Urine Appearance Urine pH Ur Specific [place] Urine Protein Urine Glucose (UA) Urine Ketones Urine Blood Urine Nitrate Urine Bilirubin Urine Urobilinogen Ur Leukocyte Esterase Urine Osmolality Ur Random Sodium Urine Chloride Blood Type Antibody Screen BBK History Checked 07/12/18 07/12/18 07/12/18 20:53 21:10 21:53 WBC RBC Hgb Hct MCV MCH MCHC RDW Plt Count MPV Gran % Lymph % (Auto) [place] % (Auto) Eos % (Auto) Baso % (Auto) Gran # Lymph # (Auto) [place] # (Auto) Eos # (Auto) Baso # (Auto) ESR Retic Count PT INR APTT Sodium Potassium Chloride Carbon Dioxide Anion Gap BUN Creatinine Est GFR ( Amer) Est GFR (Non-Af Amer) POC Glucose (mg/dL) 147 H Random Glucose Hemoglobin A1c Serum Osmolality 315 H Uric Acid Calcium Phosphorus Magnesium Iron TIBC % Saturation Total Bilirubin Direct Bilirubin AST ALT Alkaline Phosphatase Total Creatine Kinase Troponin I C-React Prot High Sens 5.45 H NT-Pro-B Natriuret Pep Total Protein Albumin Globulin Albumin/Globulin Ratio Triglycerides Cholesterol LDL Cholesterol Direct HDL Cholesterol Urine Color Urine Appearance Urine pH Ur Specific [place] Urine Protein Urine Glucose (UA) Urine Ketones Urine Blood Urine Nitrate Urine Bilirubin Urine Urobilinogen Ur Leukocyte Esterase Urine Osmolality Ur Random Sodium Urine Chloride Blood Type O POSITIVE Antibody Screen Negative BBK History Checked No verified bt 07/13/18 07/13/18 07/13/18 06:00 06:00 06:00 WBC 8.9 RBC 2.95 L Hgb 9.9 L Hct 30.5 L MCV 103.4 MCH 33.6 MCHC 32.5 RDW 16.5 H Plt Count 285 MPV 10.2 Gran % 70.6 H Lymph % (Auto) 13.1 L [place] % (Auto) 9.5 H Eos % (Auto) 6.5 H Baso % (Auto) 0.3 Gran # 6.29 Lymph # (Auto) 1.2 [place] # (Auto) 0.9 H Eos # (Auto) 0.6 Baso # (Auto) 0.03 ESR Retic Count PT INR APTT Sodium 144 Potassium 5.2 H Chloride 114 H Carbon Dioxide 24 Anion Gap 11 BUN 44 H Creatinine 2.1 H Est GFR ( Amer) 38 Est GFR (Non-Af Amer) 31 POC Glucose (mg/dL) Random Glucose 102 Hemoglobin A1c 7.3 H Serum Osmolality Uric Acid Calcium 9.1 Phosphorus 3.7 Magnesium 2.6 H Iron TIBC % Saturation Total Bilirubin 0.6 Direct Bilirubin 0.3 AST 31 ALT 29 Alkaline Phosphatase 58 Total Creatine Kinase Troponin I C-React Prot High Sens NT-Pro-B Natriuret Pep Total Protein 7.2 Albumin 4.1 Globulin 3.0 Albumin/Globulin Ratio 1.4 Triglycerides 137 Cholesterol 136 LDL Cholesterol Direct 82 HDL Cholesterol 21 L Urine Color Urine Appearance Urine pH Ur Specific [place] Urine Protein Urine Glucose (UA) Urine Ketones Urine Blood Urine Nitrate Urine Bilirubin Urine Urobilinogen Ur Leukocyte Esterase Urine Osmolality Ur Random Sodium Urine Chloride Blood Type Antibody Screen BBK History Checked 07/13/18 07:24 WBC RBC Hgb Hct MCV MCH MCHC RDW Plt Count MPV Gran % Lymph % (Auto) [place] % (Auto) Eos % (Auto) Baso % (Auto) Gran # Lymph # (Auto) [place] # (Auto) Eos # (Auto) Baso # (Auto) ESR Retic Count PT INR APTT Sodium Potassium Chloride Carbon Dioxide Anion Gap BUN Creatinine Est GFR ( Amer) Est GFR (Non-Af Amer) POC Glucose (mg/dL) 106 Random Glucose Hemoglobin A1c Serum Osmolality Uric Acid Calcium Phosphorus Magnesium Iron TIBC % Saturation Total Bilirubin Direct Bilirubin AST ALT Alkaline Phosphatase Total Creatine Kinase Troponin I C-React Prot High Sens NT-Pro-B Natriuret Pep Total Protein Albumin Globulin Albumin/Globulin Ratio Triglycerides Cholesterol LDL Cholesterol Direct HDL Cholesterol Urine Color Urine Appearance Urine pH Ur Specific [place] Urine Protein Urine Glucose (UA) Urine Ketones Urine Blood Urine Nitrate Urine Bilirubin Urine Urobilinogen Ur Leukocyte Esterase Urine Osmolality Ur Random Sodium Urine Chloride Blood Type Antibody Screen BBK History Checked
--- NOTE | 2018-07-13 13:45 | CP.PCM.CON ---
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 Patient was noted to have pain and swelling in his left foot. Patient states that this has been a chronic issue. Denies chest pain, nausea, vomiting, diarrhea, fever, chills, discharge from wound, or dysuria. PMH: DM, gout, arthritis Social Hx: 2nd left lower extremity digit amputation, hernia repair Allergies: NKDA Family Hx: noncontributory Social: 1/2 ppd smoker for 15 years. Quit 35 years ago. Denies alcohol or illicit drug use. Home Meds: Reviewed, as per MAR Review of Systems - Review of Systems Review of Systems: 12 point ROS as per HPI, otherwise negative Past Patient History - Past Social History Smoking Status: Former Smoker - CARDIAC Hx Cardiac Disorders: Yes Hx Peripheral Edema: Yes (+1 r ankle, +1 pitting leftft/ankle) - PULMONARY Hx Respiratory Disorders: No - NEUROLOGICAL Hx Neurological Disorder: No - HEENT Hx HEENT Problems: Yes (eyeglasses) - RENAL Hx Chronic Kidney Disease: No - ENDOCRINE/METABOLIC Hx Endocrine Disorders: Yes Hx Diabetes Mellitus Type 2: Yes - HEMATOLOGICAL/ONCOLOGICAL Hx Blood Disorders: No - INTEGUMENTARY Hx Dermatological Problems: Yes Other/Comment: +1 edema left foot/ankle pitting, left foot 2nd toe amputated, clear drainage noted, foot red ,swollen, painful, thick toenails. r ft +1 ankle edema, bunyons and great toes crooked b/l - MUSCULOSKELETAL/RHEUMATOLOGICAL Hx Falls: No - GASTROINTESTINAL Hx Gastrointestinal Disorders: No - GENITOURINARY/GYNECOLOGICAL Hx Genitourinary Disorders: No - PSYCHIATRIC Hx Substance Use: No - SURGICAL HISTORY Hx Surgeries: Yes Hx Amputation: Yes (2nd toe left foot) Other/Comment: Hernia repair. Foot surgery Meds Allergies/Adverse Reactions: Allergies Allergy/AdvReac Type Severity Reaction Status Date / Time No Known Allergies Allergy Verified 07/12/18 10:58 - Medications Medications: Current Medications Acetaminophen (Tylenol 325mg Tab) 650 mg PO Q6 PRN PRN Reason: TEMP>=99.5F Last Admin: 07/13/18 06:19 Dose: 650 mg Acetaminophen (Tylenol 650 Mg Supp) 650 mg RC Q6H PRN PRN Reason: TEMP>=99.5F Allopurinol (Zyloprim) 100 mg PO DAILY [facility] Last Admin: 07/13/18 10:21 Dose: 100 mg Aspirin (Ecotrin) 81 mg PO DAILY [facility] Last Admin: 07/13/18 10:21 Dose: 81 mg Atorvastatin Calcium (Lipitor) 20 mg PO DIN [facility] Docusate Sodium (Colace) 100 mg PO TID [facility] Last Admin: 07/13/18 10:21 Dose: 100 mg Ferrous Sulfate (Feosol) 324 mg PO BID [facility] Last Admin: 07/13/18 10:21 Dose: 324 mg Heparin Sodium (Porcine) (Heparin) 5,000 units SC Q8 [facility]; Protocol Last Admin: 07/13/18 07:40 Dose: 5,000 units Vancomycin HCl (Vancomycin 1gm) 1 gm in 250 mls @ 167 mls/hr IVPB DAILY [facility]; Protocol Insulin Human Lispro (Humalog Med) 0 units SC AC [facility]; Protocol Last Admin: 07/13/18 10:22 Dose: Not Given Ondansetron HCl (Zofran Inj) 4 mg IVP Q4H PRN PRN Reason: Nausea/Vomiting Pantoprazole Sodium (Protonix Ec Tab) 40 mg PO 0600 [facility] Last Admin: 07/13/18 05:49 Dose: 40 mg Physical Exam - Constitutional Appears: Non-toxic, No Acute Distress - Head Exam Head Exam: ATRAUMATIC, NORMAL INSPECTION, NORMOCEPHALIC - Respiratory Exam Respiratory Exam: Clear to Auscultation Bilateral, NORMAL BREATHING PATTERN. absent: Rales, Rhonchi, Wheezes - Cardiovascular Exam Cardiovascular Exam: RRR, +S1, +S2 - GI/Abdominal Exam GI & Abdominal Exam: Normal Bowel Sounds, Soft. absent: Tenderness - Extremities Exam Extremities exam: Negative for: pedal edema Additional comments: Left great toe base erythematous, swollen, and tender. Small ulceration inbetween great and adjacent toe - Neurological Exam Neurological exam: Alert, CN II-XII Intact, Oriented x3 - Psychiatric Exam Psychiatric exam: Normal Affect, Normal Mood - Skin Skin Exam: Intact, Normal Color Results - Vital Signs Recent Vital Signs: Last Vital Signs Temp 98.1 F 07/12/18 15:34 Pulse 75 07/12/18 22:05 Resp 16 07/12/18 22:05 BP 117/59 L 07/12/18 15:34 Pulse Ox 100 07/12/18 15:34 - Labs Result Diagrams: 07/13/18 06:00 07/13/18 06:00 Labs: Laboratory Results - last 24 hr 07/12/18 07/12/18 07/12/18 11:56 15:10 18:12 WBC RBC Hgb Hct MCV MCH MCHC RDW Plt Count MPV Gran % Lymph % (Auto) [place] % (Auto) Eos % (Auto) Baso % (Auto) Gran # Lymph # (Auto) [place] # (Auto) Eos # (Auto) Baso # (Auto) ESR 30 H Retic Count PT 11.4 INR 1.00 APTT 27.5 Sodium 141 Potassium 5.9 H* Chloride 115 H Carbon Dioxide 19 L Anion Gap 13 BUN 58 H Creatinine 2.7 H Est GFR ( Amer) 28 Est GFR (Non-Af Amer) 23 POC Glucose (mg/dL) Random Glucose 106 Hemoglobin A1c Serum Osmolality Uric Acid 6.2 Calcium 9.0 Phosphorus Magnesium Iron TIBC % Saturation Transferrin Ferritin Total Bilirubin 0.5 Direct Bilirubin AST 28 ALT 28 Alkaline Phosphatase 66 Total Creatine Kinase 125 Troponin I < 0.01 C-React Prot High Sens NT-Pro-B Natriuret Pep Total Protein 7.1 Albumin 4.1 Globulin 3.0 Albumin/Globulin Ratio 1.4 Triglycerides Cholesterol LDL Cholesterol Direct HDL Cholesterol Urine Color Urine Appearance Urine pH Ur Specific [place] Urine Protein Urine Glucose (UA) Urine Ketones Urine Blood Urine Nitrate Urine Bilirubin Urine Urobilinogen Ur Leukocyte Esterase Urine Osmolality Ur Random Sodium Urine Chloride Blood Type Antibody Screen BBK History Checked 07/12/18 07/12/18 07/12/18 20:18 20:18 20:18 WBC RBC Hgb Hct MCV MCH MCHC RDW Plt Count MPV Gran % Lymph % (Auto) [place] % (Auto) Eos % (Auto) Baso % (Auto) Gran # Lymph # (Auto) [place] # (Auto) Eos # (Auto) Baso # (Auto) ESR Retic Count PT INR APTT Sodium Potassium Chloride Carbon Dioxide Anion Gap BUN Creatinine Est GFR ( Amer) Est GFR (Non-Af Amer) POC Glucose (mg/dL) Random Glucose Hemoglobin A1c Serum Osmolality Uric Acid Calcium Phosphorus Magnesium Iron TIBC % Saturation Transferrin Ferritin Total Bilirubin Direct Bilirubin AST ALT Alkaline Phosphatase Total Creatine Kinase Troponin I C-React Prot High Sens NT-Pro-B Natriuret Pep Total Protein Albumin Globulin Albumin/Globulin Ratio Triglycerides Cholesterol LDL Cholesterol Direct HDL Cholesterol Urine Color yellow Urine Appearance Clear Urine pH 6.0 Ur Specific [place] 1.020 Urine Protein Negative Urine Glucose (UA) Negative Urine Ketones Negative Urine Blood Negative Urine Nitrate Negative Urine Bilirubin Negative Urine Urobilinogen 0.2 Ur Leukocyte Esterase Negative Urine Osmolality 537 Ur Random Sodium 113 Urine Chloride 90 Blood Type Antibody Screen BBK History Checked 07/12/18 07/12/18 07/12/18 20:53 20:53 20:53 WBC RBC Hgb Hct MCV MCH MCHC RDW Plt Count MPV Gran % Lymph % (Auto) [place] % (Auto) Eos % (Auto) Baso % (Auto) Gran # Lymph # (Auto) [place] # (Auto) Eos # (Auto) Baso # (Auto) ESR Retic Count 1.04 PT INR APTT Sodium 142 Potassium 5.1 H Chloride 113 H Carbon Dioxide 20 L Anion Gap 15 BUN 53 H Creatinine 2.6 H Est GFR ( Amer) 30 Est GFR (Non-Af Amer) 24 POC Glucose (mg/dL) Random Glucose 103 Hemoglobin A1c Serum Osmolality Uric Acid 6.2 Calcium 9.3 Phosphorus Magnesium Iron 79 TIBC 288 % Saturation 28 Transferrin Ferritin 252.0 Total Bilirubin Direct Bilirubin AST ALT Alkaline Phosphatase Total Creatine Kinase 104 Troponin I < 0.01 C-React Prot High Sens NT-Pro-B Natriuret Pep 942 H Total Protein Albumin Globulin Albumin/Globulin Ratio Triglycerides Cholesterol LDL Cholesterol Direct HDL Cholesterol Urine Color Urine Appearance Urine pH Ur Specific [place] Urine Protein Urine Glucose (UA) Urine Ketones Urine Blood Urine Nitrate Urine Bilirubin Urine Urobilinogen Ur Leukocyte Esterase Urine Osmolality Ur Random Sodium Urine Chloride Blood Type Antibody Screen BBK History Checked 07/12/18 07/12/18 07/12/18 20:53 21:10 21:10 WBC RBC Hgb Hct MCV MCH MCHC RDW Plt Count MPV Gran % Lymph % (Auto) [place] % (Auto) Eos % (Auto) Baso % (Auto) Gran # Lymph # (Auto) [place] # (Auto) Eos # (Auto) Baso # (Auto) ESR Retic Count PT INR APTT Sodium Potassium Chloride Carbon Dioxide Anion Gap BUN Creatinine Est GFR ( Amer) Est GFR (Non-Af Amer) POC Glucose (mg/dL) Random Glucose Hemoglobin A1c Serum Osmolality 315 H Uric Acid Calcium Phosphorus Magnesium Iron TIBC % Saturation Transferrin 209.71 Ferritin Total Bilirubin Direct Bilirubin AST ALT Alkaline Phosphatase Total Creatine Kinase Troponin I C-React Prot High Sens 5.45 H NT-Pro-B Natriuret Pep Total Protein Albumin Globulin Albumin/Globulin Ratio Triglycerides Cholesterol LDL Cholesterol Direct HDL Cholesterol Urine Color Urine Appearance Urine pH Ur Specific [place] Urine Protein Urine Glucose (UA) Urine Ketones Urine Blood Urine Nitrate Urine Bilirubin Urine Urobilinogen Ur Leukocyte Esterase Urine Osmolality Ur Random Sodium Urine Chloride Blood Type O POSITIVE Antibody Screen Negative BBK History Checked No verified bt 07/12/18 07/13/18 07/13/18 21:53 06:00 06:00 WBC 8.9 RBC 2.95 L Hgb 9.9 L Hct 30.5 L MCV 103.4 MCH 33.6 MCHC 32.5 RDW 16.5 H Plt Count 285 MPV 10.2 Gran % 70.6 H Lymph % (Auto) 13.1 L [place] % (Auto) 9.5 H Eos % (Auto) 6.5 H Baso % (Auto) 0.3 Gran # 6.29 Lymph # (Auto) 1.2 [place] # (Auto) 0.9 H Eos # (Auto) 0.6 Baso # (Auto) 0.03 ESR Retic Count PT INR APTT Sodium 144 Potassium 5.2 H Chloride 114 H Carbon Dioxide 24 Anion Gap 11 BUN 44 H Creatinine 2.1 H Est GFR ( Amer) 38 Est GFR (Non-Af Amer) 31 POC Glucose (mg/dL) 147 H Random Glucose 102 Hemoglobin A1c Serum Osmolality Uric Acid Calcium 9.1 Phosphorus 3.7 Magnesium 2.6 H Iron TIBC % Saturation Transferrin Ferritin Total Bilirubin 0.6 Direct Bilirubin 0.3 AST 31 ALT 29 Alkaline Phosphatase 58 Total Creatine Kinase Troponin I C-React Prot High Sens NT-Pro-B Natriuret Pep Total Protein 7.2 Albumin 4.1 Globulin 3.0 Albumin/Globulin Ratio 1.4 Triglycerides 137 Cholesterol 136 LDL Cholesterol Direct 82 HDL Cholesterol 21 L Urine Color Urine Appearance Urine pH Ur Specific [place] Urine Protein Urine Glucose (UA) Urine Ketones Urine Blood Urine Nitrate Urine Bilirubin Urine Urobilinogen Ur Leukocyte Esterase Urine Osmolality Ur Random Sodium Urine Chloride Blood Type Antibody Screen BBK History Checked 07/13/18 07/13/18 06:00 07:24 WBC RBC Hgb Hct MCV MCH MCHC RDW Plt Count MPV Gran % Lymph % (Auto) [place] % (Auto) Eos % (Auto) Baso % (Auto) Gran # Lymph # (Auto) [place] # (Auto) Eos # (Auto) Baso # (Auto) ESR Retic Count PT INR APTT Sodium Potassium Chloride Carbon Dioxide Anion Gap BUN Creatinine Est GFR ( Amer) Est GFR (Non-Af Amer) POC Glucose (mg/dL) 106 Random Glucose Hemoglobin A1c 7.3 H Serum Osmolality Uric Acid Calcium Phosphorus Magnesium Iron TIBC % Saturation Transferrin Ferritin Total Bilirubin Direct Bilirubin AST ALT Alkaline Phosphatase Total Creatine Kinase Troponin I C-React Prot High Sens NT-Pro-B Natriuret Pep Total Protein Albumin Globulin Albumin/Globulin Ratio Triglycerides Cholesterol LDL Cholesterol Direct HDL Cholesterol Urine Color Urine Appearance Urine pH Ur Specific [place] Urine Protein Urine Glucose (UA) Urine Ketones Urine Blood Urine Nitrate Urine Bilirubin Urine Urobilinogen Ur Leukocyte Esterase Urine Osmolality Ur Random Sodium Urine Chloride Blood Type Antibody Screen BBK History Checked Assessment & Plan - Assessment and Plan (Free Text) Plan: Left great toe soft tissue infection/ulceration R/O osteomyelitis Acute kidney injury Hx of DM type 2 Hx of Gout Plan Patient with left great toe infection, likely osteomyelitis as indicated by foot x-ray. Will obtain MRI for confirmation and follow podiatry recommendations for surgical intervention. Patient will be continued on Vancomycin and will adjust antibiotics as per culture results. Will continue to monitor blood, urine, and wound cultures. Marlo, PGY-3 <Rusty Tijerina - Last Filed: 07/13/18 16:15> Meds - Medications Medications: Current Medications Acetaminophen (Tylenol 325mg Tab) 650 mg PO Q6 PRN PRN Reason: TEMP>=99.5F Last Admin: 07/13/18 06:19 Dose: 650 mg Acetaminophen (Tylenol 650 Mg Supp) 650 mg RC Q6H PRN PRN Reason: TEMP>=99.5F Allopurinol (Zyloprim) 100 mg PO DAILY [facility] Last Admin: 07/13/18 10:21 Dose: 100 mg Aspirin (Ecotrin) 81 mg PO DAILY [facility] Last Admin: 07/13/18 10:21 Dose: 81 mg Atorvastatin Calcium (Lipitor) 20 mg PO DIN [facility] Docusate Sodium (Colace) 100 mg PO TID [facility] Last Admin: 07/13/18 13:38 Dose: 100 mg Ferrous Sulfate (Feosol) 324 mg PO BID [facility] Last Admin: 07/13/18 10:21 Dose: 324 mg Heparin Sodium (Porcine) (Heparin) 5,000 units SC Q8 [facility]; Protocol Last Admin: 07/13/18 13:38 Dose: 5,000 units Vancomycin HCl (Vancomycin 1gm) 1 gm in 250 mls @ 167 mls/hr IVPB DAILY [facility]; Protocol Insulin Human Lispro (Humalog Med) 0 units SC AC [facility]; Protocol Last Admin: 07/13/18 13:38 Dose: Not Given Ondansetron HCl (Zofran Inj) 4 mg IVP Q4H PRN PRN Reason: Nausea/Vomiting Pantoprazole Sodium (Protonix Ec Tab) 40 mg PO 0600 [facility] Last Admin: 07/13/18 05:49 Dose: 40 mg Results - Vital Signs Recent Vital Signs: Last Vital Signs Temp 98.1 F 07/12/18 15:34 Pulse 76 07/13/18 14:00 Resp 16 07/12/18 22:05 BP 117/59 L 07/12/18 15:34 Pulse Ox 100 07/12/18 15:34 - Labs Result Diagrams: 07/13/18 06:00 07/13/18 06:00 Labs: Laboratory Results - last 24 hr 07/12/18 07/12/18 07/12/18 15:10 18:12 20:18 WBC RBC Hgb Hct MCV MCH MCHC RDW Plt Count MPV Gran % Lymph % (Auto) [place] % (Auto) Eos % (Auto) Baso % (Auto) Gran # Lymph # (Auto) [place] # (Auto) Eos # (Auto) Baso # (Auto) ESR 30 H Retic Count PT 11.4 INR 1.00 APTT 27.5 Sodium Potassium Chloride Carbon Dioxide Anion Gap BUN Creatinine Est GFR ( Amer) Est GFR (Non-Af Amer) POC Glucose (mg/dL) Random Glucose Hemoglobin A1c Serum Osmolality Uric Acid Calcium Phosphorus Magnesium Iron TIBC % Saturation Transferrin Ferritin Total Bilirubin Direct Bilirubin AST ALT Alkaline Phosphatase Total Creatine Kinase Troponin I C-React Prot High Sens NT-Pro-B Natriuret Pep Total Protein Albumin Globulin Albumin/Globulin Ratio Triglycerides Cholesterol LDL Cholesterol Direct HDL Cholesterol Urine Color Urine Appearance Urine pH Ur Specific [place] Urine Protein Urine Glucose (UA) Urine Ketones Urine Blood Urine Nitrate Urine Bilirubin Urine Urobilinogen Ur Leukocyte Esterase Urine Osmolality 537 Ur Random Sodium 113 Urine Chloride Blood Type Blood Type Confirm Antibody Screen BBK History Checked 07/12/18 07/12/18 07/12/18 20:18 20:18 20:53 WBC RBC Hgb Hct MCV MCH MCHC RDW Plt Count MPV Gran % Lymph % (Auto) [place] % (Auto) Eos % (Auto) Baso % (Auto) Gran # Lymph # (Auto) [place] # (Auto) Eos # (Auto) Baso # (Auto) ESR Retic Count PT INR APTT Sodium 142 Potassium 5.1 H Chloride 113 H Carbon Dioxide 20 L Anion Gap 15 BUN 53 H Creatinine 2.6 H Est GFR ( Amer) 30 Est GFR (Non-Af Amer) 24 POC Glucose (mg/dL) Random Glucose 103 Hemoglobin A1c Serum Osmolality Uric Acid 6.2 Calcium 9.3 Phosphorus Magnesium Iron TIBC % Saturation Transferrin Ferritin 252.0 Total Bilirubin Direct Bilirubin AST ALT Alkaline Phosphatase Total Creatine Kinase 104 Troponin I < 0.01 C-React Prot High Sens NT-Pro-B Natriuret Pep 942 H Total Protein Albumin Globulin Albumin/Globulin Ratio Triglycerides Cholesterol LDL Cholesterol Direct HDL Cholesterol Urine Color yellow Urine Appearance Clear Urine pH 6.0 Ur Specific [place] 1.020 Urine Protein Negative Urine Glucose (UA) Negative Urine Ketones Negative Urine Blood Negative Urine Nitrate Negative Urine Bilirubin Negative Urine Urobilinogen 0.2 Ur Leukocyte Esterase Negative Urine Osmolality Ur Random Sodium Urine Chloride 90 Blood Type Blood Type Confirm Antibody Screen BBK History Checked 07/12/18 07/12/18 07/12/18 20:53 20:53 20:53 WBC RBC Hgb Hct MCV MCH MCHC RDW Plt Count MPV Gran % Lymph % (Auto) [place] % (Auto) Eos % (Auto) Baso % (Auto) Gran # Lymph # (Auto) [place] # (Auto) Eos # (Auto) Baso # (Auto) ESR Retic Count 1.04 PT INR APTT Sodium Potassium Chloride Carbon Dioxide Anion Gap BUN Creatinine Est GFR ( Amer) Est GFR (Non-Af Amer) POC Glucose (mg/dL) Random Glucose Hemoglobin A1c Serum Osmolality Uric Acid Calcium Phosphorus Magnesium Iron 79 TIBC 288 % Saturation 28 Transferrin Ferritin Total Bilirubin Direct Bilirubin AST ALT Alkaline Phosphatase Total Creatine Kinase Troponin I C-React Prot High Sens NT-Pro-B Natriuret Pep Total Protein Albumin Globulin Albumin/Globulin Ratio Triglycerides Cholesterol LDL Cholesterol Direct HDL Cholesterol Urine Color Urine Appearance Urine pH Ur Specific [place] Urine Protein Urine Glucose (UA) Urine Ketones Urine Blood Urine Nitrate Urine Bilirubin Urine Urobilinogen Ur Leukocyte Esterase Urine Osmolality Ur Random Sodium Urine Chloride Blood Type O POSITIVE Blood Type Confirm Antibody Screen Negative BBK History Checked No verified bt 07/12/18 07/12/18 07/12/18 21:10 21:10 21:53 WBC RBC Hgb Hct MCV MCH MCHC RDW Plt Count MPV Gran % Lymph % (Auto) [place] % (Auto) Eos % (Auto) Baso % (Auto) Gran # Lymph # (Auto) [place] # (Auto) Eos # (Auto) Baso # (Auto) ESR Retic Count PT INR APTT Sodium Potassium Chloride Carbon Dioxide Anion Gap BUN Creatinine Est GFR ( Amer) Est GFR (Non-Af Amer) POC Glucose (mg/dL) 147 H Random Glucose Hemoglobin A1c Serum Osmolality 315 H Uric Acid Calcium Phosphorus Magnesium Iron TIBC % Saturation Transferrin 209.71 Ferritin Total Bilirubin Direct Bilirubin AST ALT Alkaline Phosphatase Total Creatine Kinase Troponin I C-React Prot High Sens 5.45 H NT-Pro-B Natriuret Pep Total Protein Albumin Globulin Albumin/Globulin Ratio Triglycerides Cholesterol LDL Cholesterol Direct HDL Cholesterol Urine Color Urine Appearance Urine pH Ur Specific [place] Urine Protein Urine Glucose (UA) Urine Ketones Urine Blood Urine Nitrate Urine Bilirubin Urine Urobilinogen Ur Leukocyte Esterase Urine Osmolality Ur Random Sodium Urine Chloride Blood Type Blood Type Confirm Antibody Screen BBK History Checked 07/13/18 07/13/18 07/13/18 06:00 06:00 06:00 WBC 8.9 RBC 2.95 L Hgb 9.9 L Hct 30.5 L MCV 103.4 MCH 33.6 MCHC 32.5 RDW 16.5 H Plt Count 285 MPV 10.2 Gran % 70.6 H Lymph % (Auto) 13.1 L [place] % (Auto) 9.5 H Eos % (Auto) 6.5 H Baso % (Auto) 0.3 Gran # 6.29 Lymph # (Auto) 1.2 [place] # (Auto) 0.9 H Eos # (Auto) 0.6 Baso # (Auto) 0.03 ESR Retic Count PT INR APTT Sodium 144 Potassium 5.2 H Chloride 114 H Carbon Dioxide 24 Anion Gap 11 BUN 44 H Creatinine 2.1 H Est GFR ( Amer) 38 Est GFR (Non-Af Amer) 31 POC Glucose (mg/dL) Random Glucose 102 Hemoglobin A1c 7.3 H Serum Osmolality Uric Acid Calcium 9.1 Phosphorus 3.7 Magnesium 2.6 H Iron TIBC % Saturation Transferrin Ferritin Total Bilirubin 0.6 Direct Bilirubin 0.3 AST 31 ALT 29 Alkaline Phosphatase 58 Total Creatine Kinase Troponin I C-React Prot High Sens NT-Pro-B Natriuret Pep Total Protein 7.2 Albumin 4.1 Globulin 3.0 Albumin/Globulin Ratio 1.4 Triglycerides 137 Cholesterol 136 LDL Cholesterol Direct 82 HDL Cholesterol 21 L Urine Color Urine Appearance Urine pH Ur Specific [place] Urine Protein Urine Glucose (UA) Urine Ketones Urine Blood Urine Nitrate Urine Bilirubin Urine Urobilinogen Ur Leukocyte Esterase Urine Osmolality Ur Random Sodium Urine Chloride Blood Type Blood Type Confirm Antibody Screen BBK History Checked 07/13/18 07/13/18 07:24 14:00 WBC RBC Hgb Hct MCV MCH MCHC RDW Plt Count MPV Gran % Lymph % (Auto) [place] % (Auto) Eos % (Auto) Baso % (Auto) Gran # Lymph # (Auto) [place] # (Auto) Eos # (Auto) Baso # (Auto) ESR Retic Count PT INR APTT Sodium Potassium Chloride Carbon Dioxide Anion Gap BUN Creatinine Est GFR ( Amer) Est GFR (Non-Af Amer) POC Glucose (mg/dL) 106 Random Glucose Hemoglobin A1c Serum Osmolality Uric Acid Calcium Phosphorus Magnesium Iron TIBC % Saturation Transferrin Ferritin Total Bilirubin Direct Bilirubin AST ALT Alkaline Phosphatase Total Creatine Kinase Troponin I C-React Prot High Sens NT-Pro-B Natriuret Pep Total Protein Albumin Globulin Albumin/Globulin Ratio Triglycerides Cholesterol LDL Cholesterol Direct HDL Cholesterol Urine Color Urine Appearance Urine pH Ur Specific [place] Urine Protein Urine Glucose (UA) Urine Ketones Urine Blood Urine Nitrate Urine Bilirubin Urine Urobilinogen Ur Leukocyte Esterase Urine Osmolality Ur Random Sodium Urine Chloride Blood Type Blood Type Confirm O POSITIVE Antibody Screen BBK History Checked Assessment & Plan - Assessment and Plan (Free Text) Plan: Infectious diseases Attending Physician Attestation Patient seen and examined, discussed with medical records library professor. I have reviewed the patient's history of present illness, past medical, social, personal and family histories, pertinent physical exam findings, course so far in this hospital admission, pertinent laboratory and imaging results. I agree with the above findings, assessment and plan. In addition, will put patient on Vancomycin for patient with left foot cellulitis and will follow up blood cx. Follow up Podiatry evaluation.
--- NOTE | 2018-07-13 14:19 | CP.PCM.PN ---
Subjective - Date & Time of Evaluation Date of Evaluation: 07/13/18 Time of Evaluation: 14:19 - Subjective Subjective: Podiatry Progress Note: Dr. Milton Heller 72M patient seen and evaluated at bedside for L foot ulceration secondary to non-healing second digit amputation and PAD. Patient states that he has minor pain to the amputation site and cramping in his legs. He denies any other pedal complaints at this time. Denies N/V/F/SOB/CP. Objective - Vital Signs/Intake and Output Vital Signs (last 24 hours): Temp Pulse Resp BP Pulse Ox 98.1 F 76 16 117/59 L 100 07/12/18 15:34 07/13/18 14:00 07/12/18 22:05 07/12/18 15:34 07/12/18 15:34 Intake and Output: 07/13/18 07/13/18 06:59 18:59 Intake Total 960 960 Output Total 3 Balance 957 960 - Medications Medications: Current Medications Acetaminophen (Tylenol 325mg Tab) 650 mg PO Q6 PRN PRN Reason: TEMP>=99.5F Last Admin: 07/13/18 06:19 Dose: 650 mg Acetaminophen (Tylenol 650 Mg Supp) 650 mg RC Q6H PRN PRN Reason: TEMP>=99.5F Allopurinol (Zyloprim) 100 mg PO DAILY [facility] Last Admin: 07/13/18 10:21 Dose: 100 mg Aspirin (Ecotrin) 81 mg PO DAILY [facility] Last Admin: 07/13/18 10:21 Dose: 81 mg Atorvastatin Calcium (Lipitor) 20 mg PO DIN [facility] Docusate Sodium (Colace) 100 mg PO TID [facility] Last Admin: 07/13/18 13:38 Dose: 100 mg Ferrous Sulfate (Feosol) 324 mg PO BID [facility] Last Admin: 07/13/18 10:21 Dose: 324 mg Heparin Sodium (Porcine) (Heparin) 5,000 units SC Q8 [facility]; Protocol Last Admin: 07/13/18 13:38 Dose: 5,000 units Vancomycin HCl (Vancomycin 1gm) 1 gm in 250 mls @ 167 mls/hr IVPB DAILY [facility]; Protocol Insulin Human Lispro (Humalog Med) 0 units SC AC [facility]; Protocol Last Admin: 07/13/18 13:38 Dose: Not Given Ondansetron HCl (Zofran Inj) 4 mg IVP Q4H PRN PRN Reason: Nausea/Vomiting Pantoprazole Sodium (Protonix Ec Tab) 40 mg PO 0600 [facility] Last Admin: 07/13/18 05:49 Dose: 40 mg - Labs Labs: 07/13/18 06:00 07/13/18 06:00 PT 11.4 SECONDS (9.4-12.5) 07/12/18 18:12 INR 1.00 07/12/18 18:12 APTT 27.5 Seconds (25.1-36.5) 07/12/18 18:12 - Constitutional Appears: Well, Non-toxic, No Acute Distress - Head Exam Head Exam: ATRAUMATIC, NORMOCEPHALIC - Extremities Exam Additional comments: B/L lower extremity focused exam: Vascular: DP/PT non-palpable, CFT > 3 seconds to digits x9, TG warm to cool bilaterally, +1 edema appreciated to dorsal aspect of feet b/l Ortho: Tenderness to palpation of gouty nodules to L foot, MMT 4/5, rigit HAV deformity bilaterally, rigid 3rd digit HT to left Neuro: Gross sensation intact, protective sensation diminished Derm: Ulceration noted to first interspace on the L at the site of previous second digit amputation. Measuring about 2 x 1 x .1 cm, 100% fibrotic base, mild serous drainage, no purulence, no tunneling appreciated. Interdigital maceration appreciated to other webspaces. Elongated, dystrophic nails x9 - Neurological Exam Neurological Exam: Alert, Awake, Oriented x3 - Psychiatric Exam Psychiatric exam: Normal Affect, Normal Mood Assessment and Plan - Assessment and Plan (Free Text) Assessment: 72M patient seen and evaluated for L foot ulceration secondary to second digit amputation and PAD. Plan: Patient seen and evaluated with all questions and concerns addressed Afebrile, WBC 8.9, ESR 30 Discussed patient in detail with Dr. Heller B/L LE US; no evidence of DVT L foot wound culture; pending Patient on Vancomycin will adjust antibiotics as per culture results. L foot x-rays taken; suspicious for OM at hallux, 1st met, 3rd and 4th mets. Diffuse degenerative joint disease throughout L foot, prior 2nd digit amp Lower extremity MRI ordered to rule out OM vs arthritic changes; pending Arterial US: FAHAD R 0.56, L 0.3; B/L distal SFA, politeal, and trifurcation; B/L tibial disease Local wound care; betadine and DSD Will continue to follow
--- NOTE | 2018-07-13 14:23 | US ---
Date of service: 07/13/2018 PROCEDURE: Ultrasound of the Kidneys HISTORY: EMIL COMPARISON: None available. TECHNIQUE: Sonogram of the kidneys. FINDINGS: RIGHT KIDNEY: Measures: 10.2 x 4.3 x 4.4 cm. Normal in size, contour and echogenicity. No stone, solid mass lesion or hydronephrosis visualized. LEFT KIDNEY: Measures: 10.9 x 5.1 x 4.3 cm. Normal in size, contour and echogenicity. No urolithiasis or solid parenchymal mass is appreciable appear simple cyst seen exophytic off the upper pole measure 1.7 x 1.6 cm. OTHER FINDINGS: None. IMPRESSION: Simple cyst upper pole left kidney. No obstructive uropathy or urolithiasis appreciable bilaterally.
[2018-07-13] MEDS: Sodium Chloride 0.45% 1,000 ML IV SCH (17:48)
--- NOTE | 2018-07-13 19:25 | CON ---
DATE OF CONSULTATION: 07/13/2018 HISTORY: The patient is a 72-year-old male with a history of the history of renal insufficiency and is status post amputation of the toe in the past. He presents with no shortness of breath. He does admit to occasional chest discomfort when he exerts himself too much. PAST MEDICAL HISTORY: Unclear. The patient is a poor historian. However, it is apparent that the patient has diabetes mellitus. He denies having previous cardiac history. SOCIAL HISTORY: Denies smoking. REVIEW OF SYSTEMS: A 14-point review of systems is reviewed in detail. No acute anginal symptoms noted. No other cardiac symptoms. He does admit to exertional chest discomfort on heavy exertion. PHYSICAL EXAMINATION: VITAL SIGNS: Blood pressure 117/59, heart rate in the 70s. NECK: Negative JVD. LUNGS: Without rales. HEART: S1 and S2. EXTREMITIES: Status post amputation of the digit. LABORATORY DATA: EKG shows normal sinus rhythm with a left anterior hemiblock and nonspecific ST-T changes. BUN and creatinine are 44 and 2.1. Troponin is negative x2. The hemoglobin is 9.9. IMPRESSION: 1. Exertional angina. 2. Dilated cardiomyopathy. 3. Renal insufficiency. 4. Diabetes mellitus. 5. Anemia. 6. Probable peripheral vascular disease. PLAN: Given these findings, we will review the echocardiogram. Preliminary echocardiogram reveals depressed LV function with mild pulmonary hypertension. Milton Murrell MD
[2018-07-13] MEDS: Cilostazol 50 mg Tab UD PO SCH (20:31)
--- NOTE | 2018-07-13 23:50 | HP ---
DATE OF EXAM: 07/12/2018 HISTORY OF PRESENT ILLNESS: The patient is a 72-year-old male who came to the [facility] emergency room as a walk-in complaining of left foot pain, but this was according to the triage note, but according to the patient's ER physician evaluation, the patient presents with complaints of abnormal blood work. The patient was seen by the PMD weeks ago. The patient had blood work done today and the patient was told to come to the emergency room because of kidney failure and abnormal kidney test. REVIEW OF SYSTEMS: The patient's 14 systems review is positive for abnormal lab and left foot pain. CODE STATUS: Full code. LIVING WILL ADVANCE DIRECTIVE: None. SOCIAL HISTORY: Former smoker. Denies alcohol. Denies substance abuse. ALLERGIES: NONE. Height is 5 feet 6 inches. Weight is 150. BMI is 24.2. HOME MEDICATIONS: 1. Lotrisone cream. 2. Pletal 50 mg twice a day. 3. Lipitor 20 mg daily. 4. Losartan 100 mg daily. 5. Glipizide 10 mg twice a day. 6. Diclofenac 100 mg p.o. daily. 7. Aspirin 81 mg daily. 8. Allopurinol 100 mg daily. 9. Protonix 40 mg daily. 10. Lopressor 25 mg twice a day. 11. Januvia 100 mg daily. 12. Clindamycin 300 mg. The patient was seen and examined on telemetry 275. The patient was found to have elevated potassium of 5.9 in the ER for which the patient was treated. The patient was seen in the telemetry floor. PAST MEDICAL AND SURGICAL HISTORY: History of peripheral vascular disease, history of hyperlipidemia, history of hypertension, history of non-insulin requiring diabetes mellitus, history of nonsteroidal anti-inflammatory drug use, history of hyperuricemia, and history of hypertension. Past medical history is also significant for history of left foot second toe amputation, history of type 2 diabetes mellitus, and history of gout. The patient's past medical history is significant for lower extremity venous stasis, history of diabetic foot disease, and history of inguinal hernia. PHYSICAL EXAMINATION: GENERAL: The patient was seen lying in the bed. The patient is alert, awake, and responsive. VITAL SIGNS: T-max is 98.4-98.1, heart rate 69-63 to 75-74, blood pressure is 143/85, 119/61, and 117/59, respirations 18, and O2 sat is 98-100%. HEENT: The patient's head examination; normocephalic and atraumatic. HEENT examination shows pinkish pale conjunctivae. Dry oral mucosa. NECK: No neck rigidity. CHEST: Kyphosis. LUNGS: Shows no audible crackle, rales or wheezing. CARDIOVASCULAR: S1 and S2, regular rhythm. Questionable soft systolic murmur left sternal border, right second intercostal space, left second intercostal space. ABDOMEN: Soft. Positive bowel sounds. No palpable hepatosplenomegaly. No organomegaly. GENITALIA: Male. RECTAL: Deferred. EXTREMITIES: Shows trace swelling of the lower extremity. Positive discoloration of the left great toe. Positive discoloration and superficial skin ulceration of the left foot toe noted. Positive discoloration of the left foot toe noted. Both feet are warm to touch with positive swelling of the bilateral lower extremity and feet. The patient had deformity of the both feet and toes and left foot first toe and interdigital space superficial ulceration noted, which appeared to be little wet with some elongated toenails and dystrophic nails noted. NEUROLOGIC: The patient is alert, awake, responsive, is able to move upper and lower extremity without assistance. Gait examination is not tested. DIAGNOSTIC DATA: On 07/12/2018; WBC 8.6, hemoglobin and hematocrit 9.8 and 30.5, platelet 284, and granulocytes 72% segs. ESR is 30. PT and PTT 11.1 and 27.5. Sodium 141, potassium 5.9, chloride 115, CO2 of 19, anion gap 13, BUN 58, creatinine 2.7, GFR 23, and glucose of 106. Serum osmolality 315, uric acid 6.2, calcium 9, iron 79, TIBC 288, saturation 28, ferritin 252, and transferrin 209. Troponin is negative. ProBNP is 942. LFTs were normal. C-reactive protein 5.45. Urinalysis was negative. The patient was typed and crossmatch O+ blood type. The patient had foot x-rays, venous Doppler and a chest x-ray and arterial Doppler was done in the emergency room for evaluation of peripheral vascular disease. The patient's chest x-ray, arterial venous Doppler, x-ray of the foot, both all were reviewed. The patient's EKG was done in the emergency room, which was reviewed also. The patient was seen in the ER by the ER physician. The patient was treated in the emergency room for hyperkalemia. The patient's treatment in the emergency room included Kayexalate, Zosyn 3.375 g, vancomycin 1 g, high-dose albuterol treatment, D50, regular insulin 10 units was ordered and the patient was admitted to telemetry. IMPRESSION: 1. Left foot great toe pain, swelling and diabetic ulceration. 2. Acute renal failure, acute kidney injury with hyperkalemia. 3. Neurosis. 4. History of left foot second digit amputation. 5. Left foot great toe diabetic ulceration. 6. Osteomyelitis of the left foot great toe and first and third and fourth metatarsal bone osteomyelitis. 7. Degenerative joint disease of the foot. 8. History of left foot second toe amputation. 9. Left foot cellulitis. 10. Left foot osteopenia and osteoporosis. 11. Left foot gouty nodules. 12. Diabetic neuropathy. 13. Left foot toes diabetic ulceration. 14. Subtotal left foot second digit amputation. 15. Left foot erosive and productive changes of the proximal left great toe phalanx and distal segment first metatarsal and sesamoid bone suspicious for osteomyelitis and cellulitis. 16. Multifocal osteomyelitis of the left foot great toe first metatarsal bone, third and fourth metatarsal bone. 17. Diffuse degenerative joint disease of the left foot. 18. Severely abnormal ankle-brachial indexes of the right and left lower extremity at 0.56 and 0.3 respectively. 19. Bilateral distal superficial femoral artery popliteal and/or trifurcation disease. 20. Bilateral tibial peripheral vascular disease. 21. Possible left iliac occlusive disease. 22. Normocytic anemia. 23. Non-hemolyzed hyperkalemia. 24. History of peripheral vascular disease. 25. Hyperlipidemia. 26. Hypertension. 27. Hyperuricemia. 28. Qhs-urfgiwe-hblawlcrn diabetes mellitus. PLAN: At this time, the patient has been ordered serial labs and IV fluid hydration has been ordered. The patient was started on sliding scale insulin coverage. Oral hypoglycemics are stopped. The patient is resumed on statins and antiplatelet therapy. The patient's losartan, diclofenac and oral hypoglycemics are stopped. The patient is resumed on beta-alana, GI and DVT prophylaxis. The patient has been ordered repeat labs. The patient has been ordered PTH level. Blood and urine cultures and wound cultures ordered. Consultations; Interventional Radiology, Infectious Disease, Nephrology, Cardiology, and Podiatry ordered. Diabetic education ordered. TCU evaluation ordered. The patient is started on IV fluid hydration. The patient started on Colace 100 three times a day, aspirin 81 mg daily, ferrous sulfate 324 twice a day, heparin 5000 subcutaneously every 8 hours, Humalog medium dose sliding scale coverage a.c. and at bedtime, and the patient has been given Kayexalate treatment in the ER with high-dose albuterol, insulin, and treatment protocol for hyperkalemia was already completed in the emergency room. The patient is started on Lipitor 20 mg daily, Lopressor 25 twice a day, Pletal 50 mg twice a day, Protonix 40 mg daily, and Tylenol p.o. suppository every 6 hours. The patient is on Zofran. The patient is ordered Zofran 4 mg IV every 4 hours. The patient receives Zosyn 3.375 g IV. The patient was given a dose of vancomycin 1 g in the emergency room. The patient has been ordered an MRI of the left foot, incentive spirometry, and consistent carbohydrate diet. The patient has been ordered occupational and physical therapy. The patient has been ordered Infectious Disease consultation. The patient's further management will be dependent upon the patient's clinical condition, hemodynamic status and as per the patient response to therapeutic intervention, as per the patient's diagnostic test results and as per recommendation by all the physician involved in the care of the patient. The patient's further management will be dependent upon the evaluation. The patient's diagnostic testing as per therapeutic intervention, as per Interventional Radiology, as per Infectious Disease, as per Nephrology, as per Cardiology, and as per Podiatry evaluation and recommendation. The patient has been updated about his condition, diagnosis, treatment plan, hospitalization plan and need for further management and treatment all discussed and explained to the patient at length and all questions concerned answered. Dictated and electronically signed, not read. Niranjan Ling MD [facility]
[2018-07-14] MEDS: Pantoprazole 40 mg EC Tab PO SCH (05:50)
[2018-07-14] MEDS: Sodium Chloride 0.45% 1,000 ML IV SCH (06:49)
[2018-07-14 07:22] LABS: BASO # 0.04 K/mm3 (0.0-2.0); BASO % 0.4 % (0.0-3.0); EOS # 0.6 (0.0-0.7); GRAN # 6.33 (1.4-6.5); GRAN % 69.1 % (50.0-68.0); HEMOGLOBIN 9.7 g/dL (14.0-18.0); LYMPH # 1.3 (1.2-3.4); LYMPH % 14.1 % (22.0-35.0); MEAN CELL VOLUME 107.6 fl (80.0-105.0); MEAN CORPUSCULAR HEMOGLOBIN 33.4 pg (25.0-35.0); MEAN CORPUSCULAR HGB CONC 31.1 g/dl (31.0-37.0); MEAN PLATELET VOLUME 10.1 fl (7.0-11.0); MONO # 0.9 (0.1-0.6); MONO % 9.4 % (1.0-6.0); RBC 2.9 10^6/uL (3.5-6.1); RED CELL DISTRIBUTION WIDTH 16.7 % (11.5-14.5); WHITE BLOOD COUNT 9.2 10^3/uL (4.5-11.0)
[2018-07-14 07:52] LABS: ALB/GLOB RATIO 1.3 (1.1-1.8); ALBUMIN 3.7 g/dL (3.0-4.8); BILIRUBIN,DIRECT 0.3 mg/dL (0.0-0.4); CALCIUM 8.4 mg/dL (8.4-10.5)
[2018-07-14] MEDS ORDERED: Sod Polystyrene Sulf 15 gm/60 ml Susp PO STA (08:02)
--- NOTE | 2018-07-14 08:59 | CARD ---
APPROVED REPORT Date of service: 07/13/2018 EXAM: Two-dimensional and M-mode echocardiogram with Doppler and color Doppler. INDICATION EDEMA 2D DIMENSIONS Left Atrium (2D)3.4 (1.6-4.0cm)IVSd1.0 (0.7-1.1cm) LVDd5.2 (3.9-5.9cm)PWd0.9 (0.7-1.1cm) LVDs4.4 (2.5-4.0cm)FS (%) 17.0 % LVEF (%)35.3 (>50%) M-Mode DIMENSIONS Aortic Root3.00 (2.2-3.7cm)Aortic Cusp Exc.1.60 (1.5-2.0cm) Aortic Valve AoV Peak Quveudla815.0cm/Juliana Peak GR.5mmHg Mitral Valve MV E Oawwaklp71.9cm/sMV A Wodjaeau94.6cm/sE/A ratio1.2 TDI E/Lateral E'0.0E/Medial E'0.0 Tricuspid Valve TR Peak [id number]/sRAP [id number] Peak Gr.30mmHg [id number] LEFT VENTRICLE The left ventricle is normal size. There is normal left ventricular wall thickness. The systolic function is moderately impaired. There is global hypokinesis of the left ventricle. RIGHT VENTRICLE The right ventricle is normal size. The right ventricular systolic function is normal. ATRIA The left atrium size is normal. The right atrium size is normal. The interatrial septum is intact with no evidence for an atrial septal defect. AORTIC VALVE The aortic valve is normal in structure. There is mild aortic regurgitation. There is no aortic valvular stenosis. MITRAL VALVE The mitral valve is mildly thickened. Mitral regurgitation is moderate to severe. TRICUSPID VALVE The tricuspid valve is normal in structure. There is mild to moderate tricuspid regurgitation. PULMONIC VALVE The pulmonary valve is normal in structure. GREAT VESSELS The aortic root is normal in size. The IVC is normal in size and collapses >50% with inspiration. PERICARDIAL EFFUSION There is no pleural effusion. There is no pericardial effusion. <Conclusion> Normal chamber size. Moderately reduced LV systolic function with global hypokinesis and EF -35-40%. Moderate to severe MR. Mild to moderate TR.
[2018-07-14] MEDS: Insulin Lispro (humaLOG) MEDIUM Coverage SC SCH ×3 (09:55→16:49)
[2018-07-14] MEDS ORDERED: Vancomycin 1gm in NS 250ml 1 GM/250 ML BAG IVPB SCH (10:00)
[2018-07-14] MEDS: Linezolid 600 mg in D5W 300 ml 600 MG/300 ML BAG IVPB SCH ×2 (11:05→21:28)
[2018-07-14] MEDS: Cilostazol 50 mg Tab UD PO SCH ×2 (11:07→18:14)
--- NOTE | 2018-07-14 13:48 | PN ---
DATE: 07/14/2018 SUBJECTIVE: The patient is seen in room 275, bed 2. Overnight nurse's notes were reviewed. No adverse events were documented.. The patient's overnight events were noted and there were no adverse events documented. PHYSICAL EXAMINATION: VITAL SIGNS: T-max 98 degrees Fahrenheit, telemetry shows normal sinus rhythm, heart rate 65 to 67, blood pressure 105/82, respirations 19, O2 sat 98%. HEAD: Normocephalic, atraumatic. HEENT: Examination shows pinkish pale conjunctivae. Anicteric sclerae. No oropharyngeal lesion. NECK: No neck rigidity. CHEST: Kyphosis. LUNGS: No audible crackle, rales, or wheezing. Questionable decreased breath sound at the bases, left more than the right. CARDIOVASCULAR: S1, S2, regular rhythm. Questionable soft systolic murmur left sternal border, right second intercostal space, left second intercostal space. ABDOMEN: Soft. Positive bowel sounds. No palpable hepatosplenomegaly noted. GENITALIA: Male. RECTAL: Examination is deferred. EXTREMITIES: Trace swelling of the lower extremity. Positive left toe and left foot diabetic ulceration, erythema, swelling noted. Dystrophic nails noted of the lower extremity. MUSCULOSKELETAL: Examination as per the body mass index. NEUROLOGIC: The patient is alert, awake, responsive, is able to move upper and lower extremities without assistance. GAIT: Examination not tested. DIAGNOSTICS: From 07/14/2018, fingerstick blood sugar 122, 147, 106, 124, 140. WBC 9.2, hemoglobin/hematocrit 9.7 and 31.2, platelet 259. Hemoglobin A1c 7.3. C-reactive protein 5.45. Sodium 139, potassium 5.1, chloride 111, CO2 24, BUN down to 34, creatinine down to 1.9, glucose 140, calcium 8.4, phosphorus 3.1, magnesium 2.1. Blood cultures are growing gram-positive cocci in clusters. Renal ultrasound shows left renal simple cyst. Echocardiogram, preliminary report, left ventricular ejection fraction 35% to 40%, right ventricular systolic pressure is 40 mmHg. IMPRESSION AND PLAN: 1. Acute renal failure, acute kidney injury, etiology unclear. 2. Questionable and possible hypertensive diabetic chronic kidney disease, stage III/IV, probably secondary to nonsteroidal anti-inflammatory drug use versus angiotensin receptive alana use. 3. Gram-positive cocci in clusters, bacteremia, and sepsis. 4. Normocytic anemia. 5. Srl-ywpvquo-duyfwtedk diabetes mellitus with hemoglobin A1c of 7.3. 6. History of left foot second toe amputation. 7. Bilateral lower extremity peripheral arterial disease. 8. Elevated C-reactive protein. 9. Slow resolving non-hemolyzed hyperkalemia. 10. Slow resolving acute kidney injury. 11. Left renal simple cyst. 12. Questionable and possible cardiomyopathy with decreased left ventricular ejection fraction of 35% to 40%. 13. Mild pulmonary hypertension with right ventricular systolic pressure of 40 mmHg. 14. Anemia. 15. Hyperuricemia. 16. Hyperlipidemia with elevated low-density lipoprotein, decreased high-density lipoprotein. 17. Left axis deviation. 18. Left foot great toe first metatarsal, third and fourth metatarsal bone osteomyelitis. 19. Left foot degenerative joint disease. 20. Left foot cellulitis. 21. Left foot osteopenia and osteoporosis. 22. Bilateral lower extremity superficial femoral artery, popliteal artery, and tibial trifurcation peripheral arterial disease. 23. Bilateral tibial occlusive disease. 24. Left iliac peripheral arterial disease. 25. Severely compromised ankle-brachial indices of 0.56 on the right and 0.3 on the left. Plan at this time, the patient is to be continued on intravenous fluid hydration. The patient will be ordered serial labs. The patient is given a dose of Kayexalate 30 g again today to reverse the hyperkalemia as much as possible. The patient will be continued on sliding scale insulin coverage. The patient's diclofenac and angiotensin receptive blockers have been discontinued. The patient at present will be continued on IV fluid. The patient will be continued on both GI and DVT prophylaxis. Current consultation: Interventional Radiology, Nephrology, Infectious Disease, Podiatry. Their recommendations were reviewed. The patient's repeat blood cultures has been ordered. At present, the patient will be continued on IV antibiotics as per Infectious Disease. The patient's further management will be dependent upon the patient's clinical condition, hemodynamic status, as per the patient response to therapeutic intervention, as per the patient's diagnostic test results, and as per recommendation by all the physician involved in the care of the patient. The patient updated about his condition, diagnosis, test results, etc., in detail in layman's language. All questions concerned answered. Depending upon the patient's duration for IV antibiotics, the patient may or may not require a PICC line placement. The patient's telemetry will be discontinued. Dictated and electronically signed, not read. Niranjan Ling MD
--- NOTE | 2018-07-14 13:58 | PN ---
DATE: 07/14/2018 SUBJECTIVE: The patient denies chest pain. He only complains of foot pain. PHYSICAL EXAMINATION: VITAL SIGNS: Blood pressure 105/58, heart rate is in the 90s. NECK: Negative JVD. LUNGS: Without rales. HEART: Reveals S1, S2. EXTREMITIES: Without change. LABORATORY DATA: Hemoglobin is 9.7. Chemistries: BUN and creatinine is 34 and 1.9, glucose 140. IMPRESSION: 1. Foot pain. 2. Rule out peripheral vascular disease. 3. Dilated cardiomyopathy. 4. Diabetes mellitus. 5. Renal insufficiency. 6. Resolution of chest pain. PLAN: Given these findings, we will obtain ABIs on the patient today. Milton Murrell MD
--- NOTE | 2018-07-14 13:58 | CP.PCM.APN ---
Subjective - Date & Time of Evaluation Date of Evaluation: 07/14/18 Time of Evaluation: 09:00 - Subjective Subjective: pt taken for MRI Objective - Vital Signs/Intake and Output Vital Signs (last 24 hours): Temp Pulse Resp BP Pulse Ox 99.4 F 85 19 143/78 98 07/14/18 13:01 07/14/18 11:07 07/14/18 06:00 07/14/18 11:07 07/14/18 06:00 Intake and Output: 07/14/18 07/14/18 06:59 18:59 Intake Total 2840 Output Total 750 0 Balance 2090 0 - Medications Medications: Current Medications Acetaminophen (Tylenol 325mg Tab) 650 mg PO Q6 PRN PRN Reason: TEMP>=99.5F Last Admin: 07/14/18 13:01 Dose: 650 mg Acetaminophen (Tylenol 650 Mg Supp) 650 mg RC Q6H PRN PRN Reason: TEMP>=99.5F Allopurinol (Zyloprim) 100 mg PO DAILY [facility] Last Admin: 07/14/18 11:07 Dose: 100 mg Aspirin (Ecotrin) 81 mg PO DAILY [facility] Last Admin: 07/14/18 11:07 Dose: 81 mg Atorvastatin Calcium (Lipitor) 20 mg PO DIN [facility] Last Admin: 07/13/18 17:49 Dose: 20 mg Cilostazol (Pletal) 50 mg PO BID [facility] Last Admin: 07/14/18 11:07 Dose: 50 mg Docusate Sodium (Colace) 100 mg PO TID [facility] Last Admin: 07/14/18 11:06 Dose: 100 mg Ferrous Sulfate (Feosol) 324 mg PO BID [facility] Last Admin: 07/14/18 11:08 Dose: 324 mg Heparin Sodium (Porcine) (Heparin) 5,000 units SC Q8 [facility]; Protocol Last Admin: 07/14/18 05:50 Dose: 5,000 units Sodium Chloride (Sodium Chloride 0.45%) 1,000 mls @ 80 mls/hr IV .[id number] [facility] Stop: 07/16/18 12:00 Last Admin: 07/14/18 06:49 Dose: 80 mls/hr Linezolid (Zyvox 600mg/300ml D5w) 600 mg in 300 mls @ 200 mls/hr IVPB Q12 [facility]; Protocol Stop: 07/21/18 10:01 Last Admin: 07/14/18 11:05 Dose: 200 mls/hr Insulin Human Lispro (Humalog Med) 0 units SC AC [facility]; Protocol Last Admin: 07/14/18 09:55 Dose: Not Given Metoprolol Tartrate (Lopressor) 25 mg PO BID [facility] Last Admin: 07/14/18 11:07 Dose: 25 mg Ondansetron HCl (Zofran Inj) 4 mg IVP Q4H PRN PRN Reason: Nausea/Vomiting Pantoprazole Sodium (Protonix Ec Tab) 40 mg PO 0600 [facility] Last Admin: 07/14/18 05:50 Dose: 40 mg Vitamin B Complex/Vit C/Folic Acid (Nephro-Sumit) 1 tab PO 0800 [facility] - Labs Labs: 07/14/18 06:50 07/14/18 06:50 PT 11.4 SECONDS (9.4-12.5) 07/12/18 18:12 INR 1.00 07/12/18 18:12 APTT 27.5 Seconds (25.1-36.5) 07/12/18 18:12 - Constitutional Appears: No Acute Distress - Head Exam Head Exam: ATRAUMATIC, NORMAL INSPECTION, NORMOCEPHALIC - Eye Exam Pupil Exam: PERRL - Neck Exam Neck Exam: Full ROM. absent: Lymphadenopathy, Meningismus, Normal Inspection, Tenderness, Thyromegaly - Respiratory Exam Respiratory Exam: Decreased Breath Sounds. absent: Accessory Muscle Use, Chest Wall Tenderness, Clear to Ausculation Bilateral, Prolonged Expiratory Phase, Rales, Rhonchi, Wheezes, Respiratory Distress, Stridor, NORMAL BREATHING PATTERN - Cardiovascular Exam Cardiovascular Exam: REGULAR RHYTHM, +S1, +S2. absent: Bradycardia, Tachycardia, Clicks, Diastolic murmur, Gallop, Irregular Rhythm, JVD, RRR, Rubs, +S4 - GI/Abdominal Exam GI & Abdominal Exam: Soft, Normal Bowel Sounds. absent: Bruit, Distended, Firm, Guarding, Rigid, Tenderness, Diminished Bowel Sounds, Hernia, Hyperactive Bowel Sounds, Hypoactive Bowel Sounds, Mass, Organomegaly, Pulsatile Mass, Rebound - Extremities Exam Additional comments: left foot ulcer, swelling, erythema - Neurological Exam Additional comments: WILSON Assessment and Plan - Assessment and Plan (Free Text) Plan: ITS Impressions Foot X-Ray 07/12/18 11:30 IMPRESSION: Findings suspicious for multifocal osteomyelitis at the great toe, 1st metatarsal bone as well as the proximal segments of the 3rd and 4th metatarsal bones. Diffuse degenerative joint disease throughout the left foot. Prior 2nd digit subtotal amputation evident. MRI is available for follow-up if clinically warranted. Extremity Ultrasound 07/12/18 11:58 IMPRESSION: 1. No sonographic evidence for deep venous thrombosis in the visualized segments of the left lower extremity. Extremity Ultrasound 07/12/18 13:59 IMPRESSION: 1. Severely abnormal ABIs at rest 2. Bilateral distal SFA, popliteal, and/or trifurcation disease. 3. Bilateral tibial disease 4. Possible left iliac occlusive disease. 5. If clinically indicated, conventional arteriography, CTA runoff, or MRA with gadolinium runoff can be performed. Chest X-Ray 07/12/18 17:52 IMPRESSION: No active disease. Extremity Ultrasound 07/13/18 07:47 IMPRESSION: No sonographic evidence for deep venous thrombosis in the visualized segments of both lower extremities. Renal Ultrasound 07/13/18 10:45 IMPRESSION: Simple cyst upper pole left kidney. No obstructive uropathy or urolithiasis appreciable bilaterally. Microbiology 07/12/18 20:05 Foot - Left Gram Stain - Final 07/12/18 20:05 Foot - Left Wound Culture - Preliminary Gram Negative Antonio 07/12/18 20:18 Urine Urine Culture - Final No Growth (<1,000 CFU/ML) 07/12/18 12:30 Blood S.aureus & Coag-Neg Staph PNA FISH - Final 07/12/18 12:30 Blood Blood Culture - Preliminary Gram Positive Cocci 07/12/18 12:30 Blood Gram Stain - Final 07/12/18 12:00 Blood Blood Culture - Preliminary NO GROWTH AFTER 24 HOURS No Known Allergies Allergy (Verified 07/12/18 10:58) All Active Problems EMIL (acute kidney injury) (Acute) Hyperkalemia (Acute) Toe infection (Acute) 07/14/18 09:00 FOOT W/O CONTRAST LEFT [MRI] Routine 72 yr old male who has pmh sig for dm, left foot 2nd toe amputation who was sent in by PMD for eval of abnornal labs and found to be kyperkalemic with EMIL and l eft Lower ext pain that is now undergoing workup and evaluation for possible PVD as demonstrated by LE utrasound and osteomyslitis of left foot as reported. pt foot xray noted with multifocal osteomyelitis at the great toe, 1st metatarsal bone as well as the proximal segments of the 3rd and 4th metatarsal bones. LE US noted Microbiology results reviewed Pt being evaluated by vascular, renal and ID Pt for fem angio tomorrow at 2;30pm per vasc for Left illiac occlusive dx noted pt continues with IV hydration and was tx for hyperkalemia MRI foot report pending r/o osteo, will follow and discuss with PMD if positive will need pic/antx x 4 -6 wks. Izabel Granados
--- NOTE | 2018-07-14 14:53 | CP.PCM.PN ---
<Sergey Sellers - Last Filed: 07/14/18 15:06> Subjective - Date & Time of Evaluation Date of Evaluation: 07/14/18 Time of Evaluation: 09:15 - Subjective Subjective: ID progress note Patient seen and examined. Patient with no complaints this morning. Patient notes improvement to pain his left foot. Denies chest pain, shortness of breath, nausea, vomiting, diarrhea, fever, chills. Objective - Vital Signs/Intake and Output Vital Signs (last 24 hours): Temp Pulse Resp BP Pulse Ox 99.4 F 78 18 103/63 98 07/14/18 13:01 07/14/18 12:00 07/14/18 12:00 07/14/18 12:00 07/14/18 06:00 Intake and Output: 07/14/18 07/14/18 06:59 18:59 Intake Total 2840 Output Total 750 0 Balance 2090 0 - Medications Medications: Current Medications Acetaminophen (Tylenol 325mg Tab) 650 mg PO Q6 PRN PRN Reason: TEMP>=99.5F Last Admin: 07/14/18 13:01 Dose: 650 mg Acetaminophen (Tylenol 650 Mg Supp) 650 mg RC Q6H PRN PRN Reason: TEMP>=99.5F Allopurinol (Zyloprim) 100 mg PO DAILY [facility] Last Admin: 07/14/18 11:07 Dose: 100 mg Aspirin (Ecotrin) 81 mg PO DAILY [facility] Last Admin: 07/14/18 11:07 Dose: 81 mg Atorvastatin Calcium (Lipitor) 20 mg PO DIN [facility] Last Admin: 07/13/18 17:49 Dose: 20 mg Cilostazol (Pletal) 50 mg PO BID [facility] Last Admin: 07/14/18 11:07 Dose: 50 mg Docusate Sodium (Colace) 100 mg PO TID [facility] Last Admin: 07/14/18 11:06 Dose: 100 mg Ferrous Sulfate (Feosol) 324 mg PO BID [facility] Last Admin: 07/14/18 11:08 Dose: 324 mg Heparin Sodium (Porcine) (Heparin) 5,000 units SC Q8 [facility]; Protocol Last Admin: 07/14/18 05:50 Dose: 5,000 units Sodium Chloride (Sodium Chloride 0.45%) 1,000 mls @ 80 mls/hr IV .[id number] [facility] Stop: 07/16/18 12:00 Last Admin: 07/14/18 06:49 Dose: 80 mls/hr Linezolid (Zyvox 600mg/300ml D5w) 600 mg in 300 mls @ 200 mls/hr IVPB Q12 [facility]; Protocol Stop: 07/21/18 10:01 Last Admin: 07/14/18 11:05 Dose: 200 mls/hr Insulin Human Lispro (Humalog Med) 0 units SC AC [facility]; Protocol Last Admin: 07/14/18 09:55 Dose: Not Given Metoprolol Tartrate (Lopressor) 25 mg PO BID [facility] Last Admin: 07/14/18 11:07 Dose: 25 mg Ondansetron HCl (Zofran Inj) 4 mg IVP Q4H PRN PRN Reason: Nausea/Vomiting Pantoprazole Sodium (Protonix Ec Tab) 40 mg PO 0600 [facility] Last Admin: 07/14/18 05:50 Dose: 40 mg Vitamin B Complex/Vit C/Folic Acid (Nephro-Sumit) 1 tab PO 0800 [facility] - Labs Labs: 07/14/18 06:50 07/14/18 06:50 PT 11.4 SECONDS (9.4-12.5) 07/12/18 18:12 INR 1.00 07/12/18 18:12 APTT 27.5 Seconds (25.1-36.5) 07/12/18 18:12 - Constitutional Appears: Non-toxic, No Acute Distress - Head Exam Head Exam: ATRAUMATIC, NORMAL INSPECTION, NORMOCEPHALIC - Respiratory Exam Respiratory Exam: Clear to Ausculation Bilateral, NORMAL BREATHING PATTERN. absent: Rales, Rhonchi, Wheezes - Cardiovascular Exam Cardiovascular Exam: RRR, +S1, +S2 - GI/Abdominal Exam GI & Abdominal Exam: Soft, Normal Bowel Sounds. absent: Tenderness - Extremities Exam Additional comments: Left foot wrapped - Neurological Exam Neurological Exam: Alert, Awake, Oriented x3 - Psychiatric Exam Psychiatric exam: Normal Affect, Normal Mood - Skin Skin Exam: Dry, Intact, Warm Assessment and Plan - Assessment and Plan (Free Text) Plan: Left foot cellulitis R/O osteomyelitis Acute kidney injury Hx of DM type 2 Hx of Gout Plan Vancomycin changed to Zyvox Will also add Cefepime for gram negative coverage for wound Foot MRI pending Blood cultures show gram positive cocci Wound cultures show gram negative rods Will repeat blood cultures Awaiting podiatry recommendations for intervention Marlo, PGY-3 <Rusty Tijerina - Last Filed: 07/14/18 16:37> Objective - Vital Signs/Intake and Output Vital Signs (last 24 hours): Temp Pulse Resp BP Pulse Ox 99.4 F 78 18 103/63 98 07/14/18 13:01 07/14/18 12:00 07/14/18 12:00 07/14/18 12:00 07/14/18 06:00 Intake and Output: 07/14/18 07/14/18 06:59 18:59 Intake Total 2840 Output Total 750 0 Balance 2090 0 - Medications Medications: Current Medications Acetaminophen (Tylenol 325mg Tab) 650 mg PO Q6 PRN PRN Reason: TEMP>=99.5F Last Admin: 07/14/18 13:01 Dose: 650 mg Acetaminophen (Tylenol 650 Mg Supp) 650 mg RC Q6H PRN PRN Reason: TEMP>=99.5F Allopurinol (Zyloprim) 100 mg PO DAILY [facility] Last Admin: 07/14/18 11:07 Dose: 100 mg Aspirin (Ecotrin) 81 mg PO DAILY [facility] Last Admin: 07/14/18 11:07 Dose: 81 mg Atorvastatin Calcium (Lipitor) 20 mg PO DIN [facility] Last Admin: 07/13/18 17:49 Dose: 20 mg Cilostazol (Pletal) 50 mg PO BID [facility] Last Admin: 07/14/18 11:07 Dose: 50 mg Docusate Sodium (Colace) 100 mg PO TID [facility] Last Admin: 07/14/18 11:06 Dose: 100 mg Ergocalciferol (Drisdol 50,000 Intl Units Cap) 1 cap PO Q7D [facility] Ferrous Sulfate (Feosol) 324 mg PO BID [facility] Last Admin: 07/14/18 11:08 Dose: 324 mg Heparin Sodium (Porcine) (Heparin) 5,000 units SC Q8 [facility]; Protocol Last Admin: 07/14/18 05:50 Dose: 5,000 units Sodium Chloride (Sodium Chloride 0.45%) 1,000 mls @ 80 mls/hr IV .[id number] [facility] Stop: 07/16/18 12:00 Last Admin: 07/14/18 06:49 Dose: 80 mls/hr Linezolid (Zyvox 600mg/300ml D5w) 600 mg in 300 mls @ 200 mls/hr IVPB Q12 [facility]; Protocol Stop: 07/21/18 10:01 Last Admin: 07/14/18 11:05 Dose: 200 mls/hr Cefepime HCl (Maxipime 2gm) 2 gm in 100 mls @ 100 mls/hr IVPB DAILY [facility]; Protocol Stop: 07/19/18 15:16 Insulin Human Lispro (Humalog Med) 0 units SC AC [facility]; Protocol Last Admin: 07/14/18 09:55 Dose: Not Given Metoprolol Tartrate (Lopressor) 25 mg PO BID [facility] Last Admin: 07/14/18 11:07 Dose: 25 mg Ondansetron HCl (Zofran Inj) 4 mg IVP Q4H PRN PRN Reason: Nausea/Vomiting Pantoprazole Sodium (Protonix Ec Tab) 40 mg PO 0600 [facility] Last Admin: 07/14/18 05:50 Dose: 40 mg Vitamin B Complex/Vit C/Folic Acid (Nephro-Sumit) 1 tab PO 0800 [facility] - Labs Labs: 07/14/18 06:50 07/14/18 06:50 PT 11.4 SECONDS (9.4-12.5) 07/12/18 18:12 INR 1.00 07/12/18 18:12 APTT 27.5 Seconds (25.1-36.5) 07/12/18 18:12 Assessment and Plan - Assessment and Plan (Free Text) Plan: Infectious diseases Attending Physician Attestation Patient seen and examined, discussed with medical assisting program director. I have reviewed the patient's history of present illness, past medical, social, personal and family histories, pertinent physical exam findings, course so far in this hospital ad mission, pertinent laboratory and imaging results. I agree with the above findings, assessment and plan. In addition, repeat blood cx for coag neg staph in blood cx, R/O contamination. Will switch to Zyvox because of renal failure for left foot cellulitis.
[2018-07-14] MEDS ORDERED: Darbepoetin Alfa 40 mcg/ml Inj SC ONE (16:09)
--- NOTE | 2018-07-14 16:10 | CP.PCM.PN ---
Subjective - Date & Time of Evaluation Date of Evaluation: 07/14/18 Time of Evaluation: 16:08 - Subjective Subjective: Nephrology Consultation Note: Assessment: Stable Acute Kidney Injury (N17.9) ? etiology. possible NSAIDs: improving Hyperkalemia metabolic acidosis Diabetic chronic Kidney Disease (E11.22) Hypertensive Chronic Kidney Disease (I12.9) ? Chronic Kidney Disease (N18.3) Stage 3 without proteinuria (R80.9) likely due to HTN/vasc disease Anemia (D64.9), DM, gout PVD severe MR/TR with sys CHF LVEF 35-40% Plan No acute need for renal replacement therapy at this time. Hypertension control with meds as ordered. Maintain hemodynamics stable. Avoid hypotension. Patient not on ACEI/ARB due to recent EMIL and hyperkalemia. consider to add veltassa as outpt Monitor Input/Output, daily weights and renal function with basic metabolic panel low K diet and medical management of hyperkalemia as needed continue with iron and MVI. PRBC as needed. dose of aransep 40 mcg (07.14.18) please obtain records from PCP about past kidney function results started weekly vit d Check urine spot protein/creatinine, albumin/creatinine ratio, urine for eosinophils. Check uric acid, renal sonogram Anemia work up with TSAT/Ferritin/Vitamin B12/folate, serum protein electrophoresis with immunofixation, serum free light chain assay ([place]/Lambda) Check for 25-OH vitamin D, iPTH, phosphorus level. Dose meds/antibiotics for reduced GFR. Avoid fleets enema/magnesium based laxatives. Avoid nephrotoxins/NSAIDs/ iodinated contrast (unless needed emergently) Glycemic control Further work up/management as per primary team Thanks for allowing me to participate in care of your patient. Will follow patient with you. Please call if any Qs. had d/w team Dr Anjum Padron Office: [phone] Chief Complaint; left foot ulcer Reason for consult: Acute Kidney Injury HPI: Pt is a 72 M with hx of diabetes Mellitus (30 years), hypertension (years) ? PVD, gout presented with complaints of abnormal kidney fxn and left foot ulcer, being managed for EMIL and possible PVD Denies OTC/herbal meds or NSAIDs. pt says he used to take motrin in past but not these days. No recent iodinated contrast exposure. No obvious episodes of low BP. pt not aware about kidney disease in past ROS: Cardiovascular: No chest pain. Pulmonary: No shortness of breath Gastrointestinal: denies abdominal pain No nausea. No vomiting. Genitourinary: No pain while urinating. Denies blood in urine. sometimes feels hesitancy All other negative except as mentioned in HPI Physical Examination: General Appearance: Comfortable, in no acute respiratory distress, co-operative . Vitals reviewed and noted as below Head; Atraumatic, normocephalic ENT: no ulcers no thrush. Tongue is midline. Oropharynx: no rash or ulcers. EYES: Pupils are equal, round and reactive to light accommodation. Eye muscles and extraocular movement intact. Sclera is anicteric. Neck; supple no lymphadenopathy, no thyromegaly or bruit Lungs: Normal respiratory rate/effort. Breath sounds bilateral equal and clear Heart: Normal rate. s1s2 normal. No rub or gallop. Extremities: no edema. No varicose veins. left foot great toe erythema. pedal pulses not palpable both feets Neurological: Patient is alert, awake and oriented to person, place and time. No focal deficit. Strength bilateral appropriate and equal Skin: Warm and dry. Normal turgor. No rash. Palpitation: Normal elasticity for age Abdomen: Abdomen is soft. Bowel sounds +. There is no abdominal tenderness, no guarding/rigidity no organomegaly Psych: lack insight and normal affect/mood MSK: no joint tenderness or swelling. Digits and nails normal, no deformity : kidney or bladder not palpable Labs/imaging reviewed. Past medical history, past surgical history, family history, social history, allergy reviewed and noted as below Family hx: no hx of CKD. Rest non-contributory Objective - Vital Signs/Intake and Output Vital Signs (last 24 hours): Temp Pulse Resp BP Pulse Ox 99.4 F 78 18 103/63 98 07/14/18 13:01 07/14/18 12:00 07/14/18 12:00 07/14/18 12:00 07/14/18 06:00 Intake and Output: 07/14/18 07/14/18 06:59 18:59 Intake Total 2840 Output Total 750 0 Balance 2090 0 - Medications Medications: Current Medications Acetaminophen (Tylenol 325mg Tab) 650 mg PO Q6 PRN PRN Reason: TEMP>=99.5F Last Admin: 07/14/18 13:01 Dose: 650 mg Acetaminophen (Tylenol 650 Mg Supp) 650 mg RC Q6H PRN PRN Reason: TEMP>=99.5F Allopurinol (Zyloprim) 100 mg PO DAILY [facility] Last Admin: 07/14/18 11:07 Dose: 100 mg Aspirin (Ecotrin) 81 mg PO DAILY [facility] Last Admin: 07/14/18 11:07 Dose: 81 mg Atorvastatin Calcium (Lipitor) 20 mg PO DIN [facility] Last Admin: 07/13/18 17:49 Dose: 20 mg Cilostazol (Pletal) 50 mg PO BID [facility] Last Admin: 07/14/18 11:07 Dose: 50 mg Docusate Sodium (Colace) 100 mg PO TID [facility] Last Admin: 07/14/18 11:06 Dose: 100 mg Ferrous Sulfate (Feosol) 324 mg PO BID [facility] Last Admin: 07/14/18 11:08 Dose: 324 mg Heparin Sodium (Porcine) (Heparin) 5,000 units SC Q8 [facility]; Protocol Last Admin: 07/14/18 05:50 Dose: 5,000 units Sodium Chloride (Sodium Chloride 0.45%) 1,000 mls @ 80 mls/hr IV .[id number] [facility] Stop: 07/16/18 12:00 Last Admin: 07/14/18 06:49 Dose: 80 mls/hr Linezolid (Zyvox 600mg/300ml D5w) 600 mg in 300 mls @ 200 mls/hr IVPB Q12 [facility]; Protocol Stop: 07/21/18 10:01 Last Admin: 07/14/18 11:05 Dose: 200 mls/hr Cefepime HCl (Maxipime 2gm) 2 gm in 100 mls @ 100 mls/hr IVPB DAILY [facility]; Protocol Stop: 07/19/18 15:16 Insulin Human Lispro (Humalog Med) 0 units SC AC [facility]; Protocol Last Admin: 07/14/18 09:55 Dose: Not Given Metoprolol Tartrate (Lopressor) 25 mg PO BID [facility] Last Admin: 07/14/18 11:07 Dose: 25 mg Ondansetron HCl (Zofran Inj) 4 mg IVP Q4H PRN PRN Reason: Nausea/Vomiting Pantoprazole Sodium (Protonix Ec Tab) 40 mg PO 0600 [facility] Last Admin: 07/14/18 05:50 Dose: 40 mg Vitamin B Complex/Vit C/Folic Acid (Nephro-Sumit) 1 tab PO 0800 [facility] - Labs Labs: 07/14/18 06:50 07/14/18 06:50 PT 11.4 SECONDS (9.4-12.5) 07/12/18 18:12 INR 1.00 07/12/18 18:12 APTT 27.5 Seconds (25.1-36.5) 07/12/18 18:12
[2018-07-14] MEDS ORDERED: Ergocalciferol 50,000 Intl Units Cap PO SCH (16:15)
--- NOTE | 2018-07-14 22:04 | MRI ---
Date of service: 07/14/2018 PROCEDURE: MRI of the left foot without contrast HISTORY: L foot ulceration COMPARISON: Comparison is made to the previous x-ray of the left foot dated 07/12/2018 TECHNIQUE: Axial coronal and sagittal MRI images of the left foot were obtained without IV contrast administration. FINDINGS: There are multiple intermediate signal intensity soft tissue masses adjacent to the joint in the left foot most prominent around the 1st metatarsal-phalangeal joint. Findings are suspicious for gout tophi. There are multiple foci of bone erosion around the joints more prominent at the 1st metatarsophalangeal joint 3rd and 4th tarsal metatarsal joint also likely represent gout arthritis. The patient is again status post amputation through the proximal portion of the proximal 2nd phalanx. There is a skin and subcutaneous defect noted at adjacent to the 1st metatarsal-phalangeal joint. No definite evidence of osteomyelitis. There is small amount of joint effusion noted in metatarsophalangeal joint more prominent at the 4th and 5th joint. The coronal and axial images are suboptimal due to motion artifact. IMPRESSION: Findings suggestive of advanced gout arthritis. Skin ulcer adjacent to the 1st metatarsal-phalangeal joint. No evidence of abscess formation. No definite evidence of osteomyelitis.
[2018-07-15] MEDS: Pantoprazole 40 mg EC Tab PO SCH (05:24)
[2018-07-15] MEDS: Sodium Chloride 0.45% 1,000 ML IV SCH (07:15)
--- NOTE | 2018-07-15 07:20 | CP.PCM.PN ---
Subjective - Date & Time of Evaluation Date of Evaluation: 07/15/18 Time of Evaluation: 07:18 - Subjective Subjective: Podiatry Progress Note for Dr. Heller 72M patient seen and evaluated at bedside for L foot ulceration secondary to non-healing second digit amputation and PAD. Patient resting comfortably and in NAD. He states that he experiences pain to his foot when it is moved. He denies any other pedal complaints at this time. Denies N/V/F/SOB/CP. Objective - Vital Signs/Intake and Output Vital Signs (last 24 hours): Temp Pulse Resp BP Pulse Ox 97.9 F 64 19 92/45 L 98 07/15/18 06:00 07/15/18 06:00 07/15/18 06:00 07/15/18 06:00 07/15/18 06:00 Intake and Output: 07/15/18 07/15/18 06:59 18:59 Intake Total 880 Output Total 1050 Balance -170 - Medications Medications: Current Medications Acetaminophen (Tylenol 325mg Tab) 650 mg PO Q6 PRN PRN Reason: TEMP>=99.5F Last Admin: 07/14/18 13:01 Dose: 650 mg Acetaminophen (Tylenol 650 Mg Supp) 650 mg RC Q6H PRN PRN Reason: TEMP>=99.5F Allopurinol (Zyloprim) 100 mg PO DAILY [facility] Last Admin: 07/14/18 11:07 Dose: 100 mg Aspirin (Ecotrin) 81 mg PO DAILY [facility] Last Admin: 07/14/18 11:07 Dose: 81 mg Atorvastatin Calcium (Lipitor) 20 mg PO DIN [facility] Last Admin: 07/14/18 18:14 Dose: 20 mg Cilostazol (Pletal) 50 mg PO BID [facility] Last Admin: 07/14/18 18:14 Dose: 50 mg Docusate Sodium (Colace) 100 mg PO TID [facility] Last Admin: 07/14/18 18:14 Dose: 100 mg Ergocalciferol (Drisdol 50,000 Intl Units Cap) 1 cap PO Q7D [facility] Last Admin: 07/14/18 16:39 Dose: 1 cap Ferrous Sulfate (Feosol) 324 mg PO BID [facility] Last Admin: 07/14/18 18:14 Dose: 324 mg Heparin Sodium (Porcine) (Heparin) 5,000 units SC Q8 [facility]; Protocol Last Admin: 07/15/18 05:06 Dose: Not Given Sodium Chloride (Sodium Chloride 0.45%) 1,000 mls @ 80 mls/hr IV .[id number] [facility] Stop: 07/16/18 12:00 Last Admin: 07/14/18 06:49 Dose: 80 mls/hr Linezolid (Zyvox 600mg/300ml D5w) 600 mg in 300 mls @ 200 mls/hr IVPB Q12 [facility]; Protocol Stop: 07/21/18 10:01 Last Admin: 07/14/18 21:28 Dose: 200 mls/hr Cefepime HCl (Maxipime 2gm) 2 gm in 100 mls @ 100 mls/hr IVPB DAILY [facility]; Protocol Stop: 07/19/18 15:16 Insulin Human Lispro (Humalog Med) 0 units SC AC [facility]; Protocol Last Admin: 07/14/18 16:49 Dose: Not Given Metoprolol Tartrate (Lopressor) 25 mg PO BID [facility] Last Admin: 07/14/18 18:14 Dose: 25 mg Ondansetron HCl (Zofran Inj) 4 mg IVP Q4H PRN PRN Reason: Nausea/Vomiting Pantoprazole Sodium (Protonix Ec Tab) 40 mg PO 0600 [facility] Last Admin: 07/15/18 05:24 Dose: 40 mg Vitamin B Complex/Vit C/Folic Acid (Nephro-Sumit) 1 tab PO 0800 [facility] - Labs Labs: 07/14/18 06:50 07/14/18 06:50 PT 11.4 SECONDS (9.4-12.5) 07/12/18 18:12 INR 1.00 07/12/18 18:12 APTT 27.5 Seconds (25.1-36.5) 07/12/18 18:12 - Constitutional Appears: Well, No Acute Distress - Head Exam Head Exam: ATRAUMATIC, NORMOCEPHALIC - Extremities Exam Additional comments: B/L lower extremity focused exam: Vascular: DP/PT non-palpable, CFT > 3 seconds to digits x9, TG warm to cool bilaterally, +1 edema appreciated to dorsal aspect of L foot in the first interspace Ortho: Tenderness to palpation of gouty nodules to L foot, MMT 4/5, rigit HAV deformity bilaterally, rigid 3rd digit HT to left Neuro: Gross sensation intact, protective sensation diminished Derm: Ulceration noted to first interspace on the L at the site of previous second digit amputation. Measuring about 2 x 1 x .1 cm, 100% fibrotic base, mild serous drainage, no purulence, no tunneling appreciated, no probe to bone, mild erythema appreciated. Interdigital maceration appreciated to other webspaces. Elongated, dystrophic nails x9 - Neurological Exam Neurological Exam: Alert, Awake, Oriented x3 - Psychiatric Exam Psychiatric exam: Normal Affect, Normal Mood Assessment and Plan - Assessment and Plan (Free Text) Assessment: 72M patient seen and evaluated at bedside for L foot ulceration secondary to non-healing second digit amputation and PAD. Plan: Patient seen and evaluated at bedside with Dr. Heller Afebrile, WBC 8.9, ESR 30 B/L LE US; no evidence of DVT L foot wound culture; Gram - Antonio ID consulted, reccs appreciated L foot x-rays taken; suspicious for OM at hallux, 1st met, 3rd and 4th mets. Diffuse degenerative joint disease throughout L foot, prior 2nd digit amp Lower extremity MRI ordered to rule out OM vs arthritic changes; findings suggestive of advanced gout arthritis. Skin ulcer adjacent to the 1st MTPJ. No evidence of abscess formation. No definitive evidence of OM Arterial US: FAHAD R 0.56, L 0.3; B/L distal SFA, politeal, and trifurcation; B/L tibial disease Local wound care; betadine and DSD Patient stable from podiatry stand point, pending d/c patient to f/u in Dr. Milton Heller's office within the week of discharge
[2018-07-15 07:24] LABS: BASO # 0.01 K/mm3 (0.0-2.0); BASO % 0.1 % (0.0-3.0); EOS # 0.6 (0.0-0.7); EOS % 6.9 % (1.5-5.0); GRAN # 5.68 (1.4-6.5); GRAN % 66.5 % (50.0-68.0); HEMOGLOBIN 9.4 g/dL (14.0-18.0); LYMPH # 1.3 (1.2-3.4); LYMPH % 15.1 % (22.0-35.0); MEAN CELL VOLUME 102.5 fl (80.0-105.0); MEAN CORPUSCULAR HEMOGLOBIN 33.1 pg (25.0-35.0); MEAN CORPUSCULAR HGB CONC 32.3 g/dl (31.0-37.0); MEAN PLATELET VOLUME 10.2 fl (7.0-11.0); MONO % 11.4 % (1.0-6.0); RBC 2.84 10^6/uL (3.5-6.1); WHITE BLOOD COUNT 8.5 10^3/uL (4.5-11.0)
[2018-07-15 07:48] LABS: ALB/GLOB RATIO 1.3 (1.1-1.8); ALBUMIN 3.8 g/dL (3.0-4.8); BILIRUBIN,DIRECT 0.2 mg/dL (0.0-0.4); CALCIUM 8.4 mg/dL (8.4-10.5)
[2018-07-15] MEDS: Insulin Lispro (humaLOG) MEDIUM Coverage SC SCH ×4 (08:29→16:30)
--- NOTE | 2018-07-15 09:57 | CP.PCM.PN ---
Subjective - Date & Time of Evaluation Date of Evaluation: 07/15/18 Time of Evaluation: 09:53 - Subjective Subjective: Medicine Progress Note for Dr. Ling Patient seen and examined at bedside. No acute overnight events. Patient states that there is pain in his left foot only occurs with movement. Patient denies CP, SOB, n/v/d, abdominal pain, fever, chills, and SNELL. Objective - Vital Signs/Intake and Output Vital Signs (last 24 hours): Temp Pulse Resp BP Pulse Ox 97.9 F 64 19 92/45 L 98 07/15/18 06:00 07/15/18 06:00 07/15/18 06:00 07/15/18 06:00 07/15/18 06:00 Intake and Output: 07/15/18 07/15/18 06:59 18:59 Intake Total 880 Output Total 1050 Balance -170 - Medications Medications: Current Medications Acetaminophen (Tylenol 325mg Tab) 650 mg PO Q6 PRN PRN Reason: TEMP>=99.5F Last Admin: 07/14/18 13:01 Dose: 650 mg Acetaminophen (Tylenol 650 Mg Supp) 650 mg RC Q6H PRN PRN Reason: TEMP>=99.5F Allopurinol (Zyloprim) 100 mg PO DAILY [facility] Last Admin: 07/14/18 11:07 Dose: 100 mg Aspirin (Ecotrin) 81 mg PO DAILY [facility] Last Admin: 07/14/18 11:07 Dose: 81 mg Atorvastatin Calcium (Lipitor) 20 mg PO DIN [facility] Last Admin: 07/14/18 18:14 Dose: 20 mg Cilostazol (Pletal) 50 mg PO BID [facility] Last Admin: 07/14/18 18:14 Dose: 50 mg Docusate Sodium (Colace) 100 mg PO TID [facility] Last Admin: 07/14/18 18:14 Dose: 100 mg Ergocalciferol (Drisdol 50,000 Intl Units Cap) 1 cap PO Q7D [facility] Last Admin: 07/14/18 16:39 Dose: 1 cap Ferrous Sulfate (Feosol) 324 mg PO BID [facility] Last Admin: 07/14/18 18:14 Dose: 324 mg Heparin Sodium (Porcine) (Heparin) 5,000 units SC Q8 [facility]; Protocol Last Admin: 07/15/18 05:06 Dose: Not Given Sodium Chloride (Sodium Chloride 0.45%) 1,000 mls @ 80 mls/hr IV .[id number] [facility] Stop: 07/16/18 12:00 Last Admin: 07/14/18 06:49 Dose: 80 mls/hr Linezolid (Zyvox 600mg/300ml D5w) 600 mg in 300 mls @ 200 mls/hr IVPB Q12 [facility]; Protocol Stop: 07/21/18 10:01 Last Admin: 07/14/18 21:28 Dose: 200 mls/hr Cefepime HCl (Maxipime 2gm) 2 gm in 100 mls @ 100 mls/hr IVPB DAILY [facility]; Protocol Stop: 07/19/18 15:16 Insulin Human Lispro (Humalog Med) 0 units SC AC [facility]; Protocol Last Admin: 07/15/18 08:29 Dose: Not Given Metoprolol Tartrate (Lopressor) 25 mg PO BID [facility] Last Admin: 07/14/18 18:14 Dose: 25 mg Ondansetron HCl (Zofran Inj) 4 mg IVP Q4H PRN PRN Reason: Nausea/Vomiting Pantoprazole Sodium (Protonix Ec Tab) 40 mg PO 0600 [facility] Last Admin: 07/15/18 05:24 Dose: 40 mg Vitamin B Complex/Vit C/Folic Acid (Nephro-Sumit) 1 tab PO 0800 [facility] - Labs Labs: 07/15/18 07:00 07/15/18 07:00 PT 11.4 SECONDS (9.4-12.5) 07/12/18 18:12 INR 1.00 07/12/18 18:12 APTT 27.5 Seconds (25.1-36.5) 07/12/18 18:12 - Constitutional Appears: No Acute Distress - Head Exam Head Exam: NORMAL INSPECTION - Eye Exam Eye Exam: Normal appearance - ENT Exam ENT Exam: Mucous Membranes Moist, Normal Exam - Neck Exam Neck Exam: Normal Inspection - Respiratory Exam Respiratory Exam: Clear to Ausculation Bilateral. absent: Rales, Rhonchi, Wheezes - Cardiovascular Exam Cardiovascular Exam: RRR, +S1, +S2. absent: Gallop, Rubs, Murmur - GI/Abdominal Exam GI & Abdominal Exam: Soft, Normal Bowel Sounds - Extremities Exam Additional comments: Ulcer left foot first interspace, B/L DP/PT pulses non-palpable, cold to touch, sensation intact - Back Exam Back Exam: NORMAL INSPECTION - Neurological Exam Neurological Exam: Alert, Awake, Oriented x3 Assessment and Plan - Assessment and Plan (Free Text) Assessment: 72 year old male with PMH DM, gout, amputation of 2nd digit of left foot, presents for left foot pain, found to have EMIL, hyperkalemia, anemia. Patient's PMD's office was called to obtain pharmacy and medication information. However, office is closed until July 28. Attempted to call family, but no answer. Patient to have angiogram today. Plan: Left Foot Ulcer/Osteomyelitis 2/2 PAD - F/u angiogram - foot x ray showed findings suspicious for multifocal osteomyelitis at the great toe, 1st metatarsal bone as well as the proximal segments of the 3rd and 4th metatarsal bones. Diffuse degenerative joint disease throughout the left foot. Prior 2nd digit subtotal amputation evident. - Foot MRI showed arthritic gout, no osteomylitis or abscess - B/L venous duplex negative for DVT - Elevated ESR and hsCRP - Blood cultures showed gram positive cocci; likely contaminate, culture reordered - Wound culture showed gram negative rods - ID, podiatry, cardio, IR consulted. f/u recs. - Cont Zyvox and Cefepime PAD - Arterial US: FAHAD R 0.56, L 0.3; B/L distal SFA, politeal, and trifurcation; B/L tibial disease - Cont Cilostazol CKD3 - Likely 2/2 HTN and DM - Renal US ordered - tylenol prn arthritic pain - F/u CKD work up per nephro - nephro consulted. f/u recs. - Avoid nephrotoxic agents CHFrF - Echo showed LVEF 35% - Cardio consulted Hyperkalemia, resolved - Cont to monitor Anemia of Chronic Disease - Cont PO iron DM - HgbA1c 7.3% - Cont ISS - Accucheck ACHS Constipation - colace tid PPX: heparin subq, protonix Carb consistent diet Pt seen and discussed in detail with Dr. Ling. Wilman Alex, DO PGY2
--- NOTE | 2018-07-15 10:03 | CP.PCM.APN ---
Subjective - Subjective Subjective: pt seen and examined in 275 with resident at bedside, info explained to pt regarding fem angio procedure planned for today Review of Systems - Constitutional Constitutional: absent: As Per HPI, Anorexia, Chills, Daytime Sleepiness, Excessive Sweating, Fatigue, Fever, Frequent Falls, Headache, Increased Appetite , Lethargy, Malaise, Night Sweats, Snoring, Sleep Apnea, Weight Gain, Weight Loss, Weakness, Other Objective - Vital Signs/Intake and Output Vital Signs (last 24 hours): Temp Pulse Resp BP Pulse Ox 97.9 F 64 19 92/45 L 98 07/15/18 06:00 07/15/18 06:00 07/15/18 06:00 07/15/18 06:00 07/15/18 06:00 Intake and Output: 07/15/18 07/15/18 06:59 18:59 Intake Total 880 Output Total 1050 Balance -170 - Medications Medications: Current Medications Acetaminophen (Tylenol 325mg Tab) 650 mg PO Q6 PRN PRN Reason: TEMP>=99.5F Last Admin: 07/14/18 13:01 Dose: 650 mg Acetaminophen (Tylenol 650 Mg Supp) 650 mg RC Q6H PRN PRN Reason: TEMP>=99.5F Allopurinol (Zyloprim) 100 mg PO DAILY [facility] Last Admin: 07/14/18 11:07 Dose: 100 mg Aspirin (Ecotrin) 81 mg PO DAILY [facility] Last Admin: 07/14/18 11:07 Dose: 81 mg Atorvastatin Calcium (Lipitor) 20 mg PO DIN [facility] Last Admin: 07/14/18 18:14 Dose: 20 mg Cilostazol (Pletal) 50 mg PO BID [facility] Last Admin: 07/14/18 18:14 Dose: 50 mg Docusate Sodium (Colace) 100 mg PO TID [facility] Last Admin: 07/14/18 18:14 Dose: 100 mg Ergocalciferol (Drisdol 50,000 Intl Units Cap) 1 cap PO Q7D [facility] Last Admin: 07/14/18 16:39 Dose: 1 cap Ferrous Sulfate (Feosol) 324 mg PO BID [facility] Last Admin: 07/14/18 18:14 Dose: 324 mg Heparin Sodium (Porcine) (Heparin) 5,000 units SC Q8 [facility]; Protocol Last Admin: 07/15/18 05:06 Dose: Not Given Sodium Chloride (Sodium Chloride 0.45%) 1,000 mls @ 80 mls/hr IV .[id number] [facility] Stop: 07/16/18 12:00 Last Admin: 07/14/18 06:49 Dose: 80 mls/hr Linezolid (Zyvox 600mg/300ml D5w) 600 mg in 300 mls @ 200 mls/hr IVPB Q12 [facility]; Protocol Stop: 07/21/18 10:01 Last Admin: 07/14/18 21:28 Dose: 200 mls/hr Cefepime HCl (Maxipime 2gm) 2 gm in 100 mls @ 100 mls/hr IVPB DAILY [facility]; Protocol Stop: 07/19/18 15:16 Insulin Human Lispro (Humalog Med) 0 units SC AC [facility]; Protocol Last Admin: 07/15/18 08:29 Dose: Not Given Metoprolol Tartrate (Lopressor) 25 mg PO BID [facility] Last Admin: 07/14/18 18:14 Dose: 25 mg Ondansetron HCl (Zofran Inj) 4 mg IVP Q4H PRN PRN Reason: Nausea/Vomiting Pantoprazole Sodium (Protonix Ec Tab) 40 mg PO 0600 [facility] Last Admin: 07/15/18 05:24 Dose: 40 mg Vitamin B Complex/Vit C/Folic Acid (Nephro-Sumit) 1 tab PO 0800 [facility] - Labs Labs: 07/15/18 07:00 07/15/18 07:00 PT 11.4 SECONDS (9.4-12.5) 07/12/18 18:12 INR 1.00 07/12/18 18:12 APTT 27.5 Seconds (25.1-36.5) 07/12/18 18:12 - Constitutional Appears: No Acute Distress - Head Exam Head Exam: NORMOCEPHALIC - Eye Exam Eye Exam: Normal appearance Pupil Exam: NORMAL ACCOMODATION - Respiratory Exam Respiratory Exam: NORMAL BREATHING PATTERN - Cardiovascular Exam Cardiovascular Exam: +S1, +S2 - GI/Abdominal Exam GI & Abdominal Exam: Normal Bowel Sounds - Extremities Exam Additional comments: left foot with toe swelling, erythema - Neurological Exam Neurological Exam: Alert, Awake, Oriented x3 - Psychiatric Exam Psychiatric exam: Normal Affect, Normal Mood - Skin Skin Exam: Dry, Intact, Normal Color Assessment and Plan - Assessment and Plan (Free Text) Plan: ITS Impressions Foot X-Ray 07/12/18 11:30 IMPRESSION: Findings suspicious for multifocal osteomyelitis at the great toe, 1st metatarsal bone as well as the proximal segments of the 3rd and 4th metatarsal bones. Diffuse degenerative joint disease throughout the left foot. Prior 2nd digit subtotal amputation evident. MRI is available for follow-up if clinically warranted. Extremity Ultrasound 07/12/18 11:58 IMPRESSION: 1. No sonographic evidence for deep venous thrombosis in the visualized segments of the left lower extremity. Extremity Ultrasound 07/12/18 13:59 IMPRESSION: 1. Severely abnormal ABIs at rest 2. Bilateral distal SFA, popliteal, and/or trifurcation disease. 3. Bilateral tibial disease 4. Possible left iliac occlusive disease. 5. If clinically indicated, conventional arteriography, CTA runoff, or MRA with gadolinium runoff can be performed. Chest X-Ray 07/12/18 17:52 IMPRESSION: No active disease. Extremity Ultrasound 07/13/18 07:47 IMPRESSION: No sonographic evidence for deep venous thrombosis in the visualized segments of both lower extremities. Renal Ultrasound 07/13/18 10:45 IMPRESSION: Simple cyst upper pole left kidney. No obstructive uropathy or urolithiasis appreciable bilaterally. Foot MRI 07/14/18 09:00 IMPRESSION: Findings suggestive of advanced gout arthritis. Skin ulcer adjacent to the 1st metatarsal-phalangeal joint. No evidence of abscess formation. No definite evidence of osteomyelitis. All Active Problems EMIL (acute kidney injury) (Acute) Hyperkalemia (Acute) Toe infection (Acute) 72 yr old male who has pmh sig for dm, left foot 2nd toe amputation who was sent in by PMD for eval of abnornal labs and found to be kyperkalemic with EMIL and left Lower ext pain that is now undergoing workup and evaluation for possible PVD as demonstrated by LE utrasound and osteomyslitis of left foot as reported. pt foot xray noted with multifocal osteomyelitis at the great toe, 1st metatarsal bone as well as the proximal segments of the 3rd and 4th metatarsal bones. LE US noted Microbiology results reviewed Pt being evaluated by vascular, renal and ID Pt for fem angio today 2:30pm per vasc for Left illiac occlusive dx noted MRI foot reports advanced gouty arthritis, no osteo, discuss with Dr Tijerina will follow fem angio results
[2018-07-15] MEDS: Multivitamin Vitamin B Complex (Nephro-Vite) Tab PO SCH (10:04)
[2018-07-15] MEDS: Cefepime IV 2 gm in NS 2 GM/100 ML BAG IVPB SCH (10:04)
[2018-07-15] MEDS: Cilostazol 50 mg Tab UD PO SCH ×2 (10:04→18:56)
--- NOTE | 2018-07-15 11:34 | PN ---
DATE: 07/15/2018 LOCATION: The patient was seen on room 275, bed 2. SUBJECTIVE: The patient is sitting up in the bed, alert, awake, responsive. The patient denies any chest pain or shortness of breath. Denies any nausea, vomiting, diarrhea or constipation. Denies hemoptysis, hematemesis, melena. Telemetry shows sinus rhythm, heart rate in 75, 63, 68. OBJECTIVE: VITAL SIGNS: Vital signs: T-max 97.9, blood pressure 119/66, respirations 19, O2 sat 98%. HEENT: Head: Normocephalic, atraumatic. HEENT examination shows pinkish pale conjunctivae. Anicteric sclerae. No oropharyngeal lesion. No neck rigidity. CHEST: Kyphosis. LUNGS: Shows no audible crackle, rales or wheezing. CARDIOVASCULAR: S1, S2, regular rhythm. Positive systolic murmur left sternal border, right second intercostal space, left second intercostal space. ABDOMEN: Soft. Positive bowel sounds. No palpable hepatosplenomegaly noted. GENITALIA: Male. RECTAL: Deferred. EXTREMITIES: Shows positive left foot toe deformity and discoloration. MUSCULOSKELETAL: Shows a body mass index of 24.7. NEUROLOGIC: The patient is alert, awake, oriented, is able to move upper and lower extremities without assistance. Gait examination is not tested. DIAGNOSTICS: 07/15/2018, WBC 8.5, hemoglobin/hematocrit 9.4, 29.1, platelet 248. Sodium 139, potassium 4.3, chloride 107, CO2 25, anion gap 11, BUN 35, creatinine 2.0, GFR 33, glucose 119, calcium 8.4, phosphorus 3.3, magnesium 2.0. LFTs are normal. Vitamin D 25-hydroxy 17.2. Urine eosinophils negative. Left foot wound cultures, Pseudomonas aeruginosa and gram-negative chari resistant to Ancef sensitive to cefepime, meropenem, Zosyn. Blood cultures growing coagulase-negative Staphylococcus. Blood type O+. MRI of the left foot was reviewed and noted and explained to the patient. IMPRESSION AND PLAN: 1. Left foot great toe diabetic foot ulceration. 2. Severe peripheral vascular disease. 3. Elongated dystrophic nails. 4. Asymptomatic hypotension. 5. Normocytic anemia. 6. Granulocytosis. 7. Elevated erythrocyte sedimentation rate of 30. 8. Acute forgetting. 9. 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 It should be in there. 10. Non-hemolyzed hyperkalemia. 11. Acute kidney injury with underlying chronic kidney disease. 12. Elevated C-reactive protein of 5.45. 13. Jqh-vvrxpod-iwmcdkfwb diabetes mellitus with hemoglobin A1c of 7.3 and fructosamine of 330. 14. Non-hemolyzed hyperkalemia. 15. Coagulase negative Staphylococcus aureus bacteremia and sepsis. 16. Pseudomonas nose and gram-negative chari, left foot diabetic foot ulceration. 17. Uwu-vyqjoof-eqryfabzb diabetes mellitus. 18. Bilateral lower extremity venous stasis. 19. Left foot great toe diabetic ulceration. 21. Cardiomyopathy with left ventricular ejection fraction of 35%. 22. Moderately impaired left ventricular systolic function and global left ventricular hypokinesis with left ventricle ejection fraction 35% 23. Mild aortic regurgitation. 24. Mildly thickened mitral valve. 25. Moderate to severe mitral regurgitation. 26. Moderate tricuspid regurgitation with pulmonary hypertension and right ventricular systolic pressure of 40 mmHg. 27. Rtuw-zy-prgetyjl tricuspid regurgitation. 28. Xcrzzghc-qw-znjlac mitral regurgitation. 29. A left foot gouty tophi. 30. Gouty arthritis with bone erosions of the first metatarsal phalangeal joint and third and fourth tarsal metatarsal joint. 31. Status post amputation of the proximal second pharynx. 32. Left foot fourth and fifth joint effusion and left foot fourth and fifth metatarsophalangeal joint effusion. 33. Advanced gouty arthritis of the left foot. 34. Diabetic foot ulceration of the first metatarsophalangeal joint. 35. Coagulase-negative Staphylococcus bacteremia. 36. Acute kidney injury, etiology possibly nonsteroidal anti-inflammatory drug use. 37. Hypertensive and diabetic chronic kidney disease. 38. Left foot diabetic ulceration and cellulitis. PLAN: At this time, the patient awake and alert. The patient is awaiting serial labs. The patient is awaiting for angiogram with Dr. Milton Lujan. The patient has been ordered repeat labs. Current consultation, Interventional Radiology, Infectious Disease, Nephrology, Cardiology, Podiatry. CURRENT MEDICATIONS: Half normal saline at 80 mL an hour. The patient received a dose of Aranesp 40 mcg, Colace 100 mg three times a day, Drisdol 50,000 units weekly, Ecotrin 81 mg daily, ferrous sulfate 324 twice a day, heparin 5000 subcu every 8 hours, Humalog medium dose sliding scale coverage a.c. The patient is on Lipitor 20 mg daily, Lopressor 25 mg twice a day, cefepime 2 g IV daily, Nephro-Sumit 1 tablet daily, Pletal 50 mg twice a day, Protonix 40 mg daily, Tylenol 650 every 6 hours p.r.n., Zofran 4 mg IV every 4 hours p.r.n., allopurinol 100 mg daily. The patient is started on Zyvox 600 mg IV every 12 hours. The patient is awaiting for femoral angiogram by Dr. Milton Lujan. The patient has been ordered incentive spirometer. Physical therapy, occupational therapy ordered. The patient seen by the physical therapist. The patient seen by the physical therapist. Their recommendation was Transitional Care Unit. At present, the patient is to be continued on above therapeutic intervention. We will await for a femoral angiogram results and depending upon those the patient's further intervention will be ordered. Further diagnostic therapeutic intervention will be ordered. The patient updated about his condition, diagnosis, test results, recommendation by all physician involved in the care of the patient. All above discussed and explained to the patient in layman's language. All questions concerned answered. DATE OF SERVICE July 15, 2018 Dictated and electronically signed, not read. Niranjan Ling MD
[2018-07-15] MEDS: Linezolid 600 mg in D5W 300 ml 600 MG/300 ML BAG IVPB SCH ×2 (11:41→22:22)
[2018-07-15] MEDS ORDERED: Acetylcysteine 20% Inhal Soln (4ml) PO SCH (12:00)
--- NOTE | 2018-07-15 13:30 | CP.PCM.PN ---
Subjective - Date & Time of Evaluation Date of Evaluation: 07/15/18 Time of Evaluation: 13:28 - Subjective Subjective: Nephrology Consultation Note: Assessment: Stable Acute Kidney Injury (N17.9) ? etiology. possible NSAIDs as also with peripheral eosinophilia: improving Hyperkalemia metabolic acidosis Diabetic chronic Kidney Disease (E11.22) Hypertensive Chronic Kidney Disease (I12.9) ? Chronic Kidney Disease (N18.3) Stage 3 without proteinuria (R80.9) likely due to HTN/vasc disease Anemia (D64.9), DM, gout PVD severe MR/TR with sys CHF LVEF 35-40% Plan No acute need for renal replacement therapy at this time. Hypertension control with meds as ordered. Maintain hemodynamics stable. Avoid hypotension. Patient not on ACEI/ARB due to recent EMIL and hyperkalemia. consider to add veltassa as outpt Monitor Input/Output, daily weights and renal function with basic metabolic panel low K diet and medical management of hyperkalemia as needed continue with iron and MVI. PRBC as needed. dose of aransep 40 mcg (07.14.18) please obtain records from PCP about past kidney function results started weekly vit d ordered for agusto cmaacho to check PVR pt planned for IR intervention and angiogram for PVD. benefit of procedure likely outweighs potential risk of contrast induced nephropathy, agree with IVF as preventive strategy Dose meds/antibiotics for reduced GFR. Avoid fleets enema/magnesium based laxatives. Avoid nephrotoxins/NSAIDs/ iodinated contrast (unless needed emergently) Glycemic control Further work up/management as per primary team Thanks for allowing me to participate in care of your patient. Will follow patient with you. Please call if any Qs. had d/w team Dr Anjum Padron Office: [phone] Chief Complaint; left foot ulcer Reason for consult: Acute Kidney Injury HPI: Pt is a 72 M with hx of diabetes Mellitus (30 years), hypertension (years) ? PVD, gout presented with complaints of abnormal kidney fxn and left foot ulcer, being managed for EMIL and possible PVD Denies OTC/herbal meds or NSAIDs. pt says he used to take motrin in past but not these days. No recent iodinated contrast exposure. No obvious episodes of low BP. pt not aware about kidney disease in past ROS: Cardiovascular: No chest pain. Pulmonary: No shortness of breath Gastrointestinal: denies abdominal pain No nausea. No vomiting. Genitourinary: No pain while urinating. Denies blood in urine. sometimes feels hesitancy All other negative except as mentioned in HPI Physical Examination: General Appearance: Comfortable, in no acute respiratory distress, co-operative . Vitals reviewed and noted as below Head; Atraumatic, normocephalic ENT: no ulcers no thrush. Tongue is midline. Oropharynx: no rash or ulcers. EYES: Pupils are equal, round and reactive to light accommodation. Eye muscles and extraocular movement intact. Sclera is anicteric. Neck; supple no lymphadenopathy, no thyromegaly or bruit Lungs: Normal respiratory rate/effort. Breath sounds bilateral equal and clear Heart: Normal rate. s1s2 normal. No rub or gallop. Extremities: no edema. No varicose veins. left foot great toe erythema. pedal pulses not palpable both feets Neurological: Patient is alert, awake and oriented to person, place and time. No focal deficit. Strength bilateral appropriate and equal Skin: Warm and dry. Normal turgor. No rash. Palpitation: Normal elasticity for age Abdomen: Abdomen is soft. Bowel sounds +. There is no abdominal tenderness, no guarding/rigidity no organomegaly Psych: lack insight and normal affect/mood MSK: no joint tenderness or swelling. Digits and nails normal, no deformity : kidney or bladder not palpable Labs/imaging reviewed. Past medical history, past surgical history, family history, social history, allergy reviewed and noted as below Family hx: no hx of CKD. Rest non-contributory Objective - Vital Signs/Intake and Output Vital Signs (last 24 hours): Temp Pulse Resp BP Pulse Ox 97.9 F 82 19 119/66 98 07/15/18 06:00 07/15/18 10:03 07/15/18 06:00 07/15/18 10:03 07/15/18 06:00 Intake and Output: 07/15/18 07/15/18 06:59 18:59 Intake Total 880 Output Total 1050 Balance -170 - Medications Medications: Current Medications Acetaminophen (Tylenol 325mg Tab) 650 mg PO Q6 PRN PRN Reason: TEMP>=99.5F Last Admin: 07/14/18 13:01 Dose: 650 mg Acetaminophen (Tylenol 650 Mg Supp) 650 mg RC Q6H PRN PRN Reason: TEMP>=99.5F Acetylcysteine (Acetylcysteine 20%) 3 ml PO BID [facility] Stop: 07/17/18 18:00 Last Admin: 07/15/18 12:23 Dose: 3 ml Allopurinol (Zyloprim) 100 mg PO DAILY [facility] Last Admin: 07/15/18 10:05 Dose: 100 mg Aspirin (Ecotrin) 81 mg PO DAILY [facility] Last Admin: 07/15/18 10:03 Dose: 81 mg Atorvastatin Calcium (Lipitor) 20 mg PO DIN [facility] Last Admin: 07/14/18 18:14 Dose: 20 mg Cilostazol (Pletal) 50 mg PO BID [facility] Last Admin: 07/15/18 10:04 Dose: 50 mg Docusate Sodium (Colace) 100 mg PO TID [facility] Last Admin: 07/15/18 10:03 Dose: 100 mg Ergocalciferol (Drisdol 50,000 Intl Units Cap) 1 cap PO Q7D [facility] Last Admin: 07/14/18 16:39 Dose: 1 cap Ferrous Sulfate (Feosol) 324 mg PO BID [facility] Last Admin: 07/15/18 10:03 Dose: 324 mg Heparin Sodium (Porcine) (Heparin) 5,000 units SC Q8 [facility]; Protocol Last Admin: 07/15/18 05:06 Dose: Not Given Sodium Chloride (Sodium Chloride 0.45%) 1,000 mls @ 80 mls/hr IV .[id number] [facility] Stop: 07/16/18 12:00 Last Admin: 07/15/18 07:15 Dose: Not Given Linezolid (Zyvox 600mg/300ml D5w) 600 mg in 300 mls @ 200 mls/hr IVPB Q12 [facility]; Protocol Stop: 07/21/18 10:01 Last Admin: 07/15/18 11:41 Dose: 200 mls/hr Cefepime HCl (Maxipime 2gm) 2 gm in 100 mls @ 100 mls/hr IVPB DAILY [facility]; Protocol Stop: 07/19/18 15:16 Last Admin: 07/15/18 10:04 Dose: 100 mls/hr Insulin Human Lispro (Humalog Med) 0 units SC AC [facility]; Protocol Last Admin: 07/15/18 12:20 Dose: 1 unit Metoprolol Tartrate (Lopressor) 25 mg PO BID [facility] Last Admin: 07/15/18 10:03 Dose: 25 mg Ondansetron HCl (Zofran Inj) 4 mg IVP Q4H PRN PRN Reason: Nausea/Vomiting Pantoprazole Sodium (Protonix Ec Tab) 40 mg PO 0600 [facility] Last Admin: 07/15/18 05:24 Dose: 40 mg Vitamin B Complex/Vit C/Folic Acid (Nephro-Sumit) 1 tab PO 0800 [facility] Last Admin: 07/15/18 10:04 Dose: 1 tab - Labs Labs: 07/15/18 07:00 07/15/18 07:00 PT 11.4 SECONDS (9.4-12.5) 07/12/18 18:12 INR 1.00 07/12/18 18:12 APTT 27.5 Seconds (25.1-36.5) 07/12/18 18:12
--- NOTE | 2018-07-15 14:15 | CP.PCM.PN ---
<Sergey Sellers - Last Filed: 07/15/18 14:12> Subjective - Date & Time of Evaluation Date of Evaluation: 07/15/18 Time of Evaluation: 10:00 - Subjective Subjective: ID progress note Patient states he is feeling well with no complaints. Patient walking around with minimal pain. Denies chest pain, shortness of breath, nausea, vomiting, diarrhea, fever. Objective - Vital Signs/Intake and Output Vital Signs (last 24 hours): Temp Pulse Resp BP Pulse Ox 98.5 F 71 20 113/63 98 07/15/18 12:00 07/15/18 14:00 07/15/18 12:00 07/15/18 12:00 07/15/18 06:00 Intake and Output: 07/15/18 07/15/18 06:59 18:59 Intake Total 880 Output Total 1050 Balance -170 - Medications Medications: Current Medications Acetaminophen (Tylenol 325mg Tab) 650 mg PO Q6 PRN PRN Reason: TEMP>=99.5F Last Admin: 07/14/18 13:01 Dose: 650 mg Acetaminophen (Tylenol 650 Mg Supp) 650 mg RC Q6H PRN PRN Reason: TEMP>=99.5F Acetylcysteine (Acetylcysteine 20%) 3 ml PO BID [facility] Stop: 07/17/18 18:00 Last Admin: 07/15/18 12:23 Dose: 3 ml Allopurinol (Zyloprim) 100 mg PO DAILY [facility] Last Admin: 07/15/18 10:05 Dose: 100 mg Aspirin (Ecotrin) 81 mg PO DAILY [facility] Last Admin: 07/15/18 10:03 Dose: 81 mg Atorvastatin Calcium (Lipitor) 20 mg PO DIN [facility] Last Admin: 07/14/18 18:14 Dose: 20 mg Cilostazol (Pletal) 50 mg PO BID [facility] Last Admin: 07/15/18 10:04 Dose: 50 mg Docusate Sodium (Colace) 100 mg PO TID [facility] Last Admin: 07/15/18 10:03 Dose: 100 mg Ergocalciferol (Drisdol 50,000 Intl Units Cap) 1 cap PO Q7D [facility] Last Admin: 07/14/18 16:39 Dose: 1 cap Ferrous Sulfate (Feosol) 324 mg PO BID [facility] Last Admin: 07/15/18 10:03 Dose: 324 mg Heparin Sodium (Porcine) (Heparin) 5,000 units SC Q8 [facility]; Protocol Last Admin: 07/15/18 13:54 Dose: Not Given Sodium Chloride (Sodium Chloride 0.45%) 1,000 mls @ 80 mls/hr IV .[id number] [facility] Stop: 07/16/18 12:00 Last Admin: 07/15/18 07:15 Dose: Not Given Linezolid (Zyvox 600mg/300ml D5w) 600 mg in 300 mls @ 200 mls/hr IVPB Q12 [facility]; Protocol Stop: 07/21/18 10:01 Last Admin: 07/15/18 11:41 Dose: 200 mls/hr Cefepime HCl (Maxipime 2gm) 2 gm in 100 mls @ 100 mls/hr IVPB DAILY [facility]; Protocol Stop: 07/19/18 15:16 Last Admin: 07/15/18 10:04 Dose: 100 mls/hr Insulin Human Lispro (Humalog Med) 0 units SC AC [facility]; Protocol Last Admin: 07/15/18 12:20 Dose: 1 unit Metoprolol Tartrate (Lopressor) 25 mg PO BID [facility] Last Admin: 07/15/18 10:03 Dose: 25 mg Ondansetron HCl (Zofran Inj) 4 mg IVP Q4H PRN PRN Reason: Nausea/Vomiting Pantoprazole Sodium (Protonix Ec Tab) 40 mg PO 0600 [facility] Last Admin: 07/15/18 05:24 Dose: 40 mg Vitamin B Complex/Vit C/Folic Acid (Nephro-Sumit) 1 tab PO 0800 [facility] Last Admin: 07/15/18 10:04 Dose: 1 tab - Labs Labs: 07/15/18 07:00 07/15/18 07:00 PT 11.4 SECONDS (9.4-12.5) 07/12/18 18:12 INR 1.00 07/12/18 18:12 APTT 27.5 Seconds (25.1-36.5) 07/12/18 18:12 - Constitutional Appears: Non-toxic, No Acute Distress - Head Exam Head Exam: ATRAUMATIC, NORMAL INSPECTION, NORMOCEPHALIC - ENT Exam ENT Exam: Mucous Membranes Moist - Respiratory Exam Respiratory Exam: Clear to Ausculation Bilateral, NORMAL BREATHING PATTERN. absent: Rales, Rhonchi, Wheezes - Cardiovascular Exam Cardiovascular Exam: RRR, +S1, +S2 - GI/Abdominal Exam GI & Abdominal Exam: Soft, Normal Bowel Sounds. absent: Tenderness - Extremities Exam Extremities Exam: absent: Pedal Edema Additional comments: Left foot bandaged - Neurological Exam Neurological Exam: Alert, Awake, Oriented x3 - Psychiatric Exam Psychiatric exam: Normal Affect, Normal Mood - Skin Skin Exam: Intact, Normal Color, Warm Assessment and Plan - Assessment and Plan (Free Text) Plan: Left foot cellulitis Acute kidney injury Hx of DM type 2 Hx of Gout Plan Continue Zyvox and Cefepime Foot MRI negative for Osteomyelitis Repeat blood cultures negative x 24 hours Patient undergoing femoral angiogram to evaluate PAD No surgical intervention as per podiatry at this time Marlo PGY-3 <Rusty Tijerina - Last Filed: 07/15/18 22:31> Objective - Vital Signs/Intake and Output Vital Signs (last 24 hours): Temp Pulse Resp BP Pulse Ox 98.0 F 76 18 108/65 98 07/15/18 19:45 07/15/18 19:45 07/15/18 19:45 07/15/18 19:45 07/15/18 06:00 Intake and Output: 07/15/18 07/16/18 18:59 06:59 Intake Total 1620 Output Total 650 Balance 970 - Medications Medications: Current Medications Acetaminophen (Tylenol 325mg Tab) 650 mg PO Q6 PRN PRN Reason: TEMP>=99.5F Last Admin: 07/14/18 13:01 Dose: 650 mg Acetaminophen (Tylenol 650 Mg Supp) 650 mg RC Q6H PRN PRN Reason: TEMP>=99.5F Acetylcysteine (Acetylcysteine 20%) 3 ml PO BID [facility] Stop: 07/17/18 18:00 Last Admin: 07/15/18 12:23 Dose: 3 ml Allopurinol (Zyloprim) 100 mg PO DAILY [facility] Last Admin: 07/15/18 10:05 Dose: 100 mg Aspirin (Ecotrin) 81 mg PO DAILY [facility] Last Admin: 07/15/18 10:03 Dose: 81 mg Atorvastatin Calcium (Lipitor) 20 mg PO DIN [facility] Last Admin: 07/15/18 18:55 Dose: Not Given Cilostazol (Pletal) 50 mg PO BID [facility] Last Admin: 07/15/18 18:56 Dose: Not Given Docusate Sodium (Colace) 100 mg PO TID [facility] Last Admin: 07/15/18 18:54 Dose: Not Given Ergocalciferol (Drisdol 50,000 Intl Units Cap) 1 cap PO Q7D [facility] Last Admin: 07/14/18 16:39 Dose: 1 cap Ferrous Sulfate (Feosol) 324 mg PO BID [facility] Last Admin: 07/15/18 18:54 Dose: Not Given Heparin Sodium (Porcine) (Heparin) 5,000 units SC Q8 [facility]; Protocol Last Admin: 07/15/18 13:54 Dose: Not Given Sodium Chloride (Sodium Chloride 0.45%) 1,000 mls @ 80 mls/hr IV .[id number] [facility] Stop: 07/16/18 12:00 Last Admin: 07/15/18 07:15 Dose: Not Given Linezolid (Zyvox 600mg/300ml D5w) 600 mg in 300 mls @ 200 mls/hr IVPB Q12 [facility]; Protocol Stop: 07/21/18 10:01 Last Admin: 07/15/18 11:41 Dose: 200 mls/hr Cefepime HCl (Maxipime 2gm) 2 gm in 100 mls @ 100 mls/hr IVPB DAILY [facility]; Protocol Stop: 07/19/18 15:16 Last Admin: 07/15/18 10:04 Dose: 100 mls/hr Insulin Human Lispro (Humalog Med) 0 units SC AC [facility]; Protocol Last Admin: 07/15/18 16:30 Dose: Not Given Metoprolol Tartrate (Lopressor) 25 mg PO BID [facility] Last Admin: 07/15/18 18:56 Dose: Not Given Ondansetron HCl (Zofran Inj) 4 mg IVP Q4H PRN PRN Reason: Nausea/Vomiting Pantoprazole Sodium (Protonix Ec Tab) 40 mg PO 0600 [facility] Last Admin: 07/15/18 05:24 Dose: 40 mg Vitamin B Complex/Vit C/Folic Acid (Nephro-Sumit) 1 tab PO 0800 [facility] Last Admin: 07/15/18 10:04 Dose: 1 tab - Labs Labs: 07/15/18 07:00 07/15/18 07:00 PT 11.4 SECONDS (9.4-12.5) 07/12/18 18:12 INR 1.00 07/12/18 18:12 APTT 27.5 Seconds (25.1-36.5) 07/12/18 18:12 Assessment and Plan - Assessment and Plan (Free Text) Plan: Infectious diseases Attending Physician Attestation Patient seen and examined, discussed with bio medical technician. I have reviewed the patient's history of present illness, past medical, social, personal and family histories, pertinent physical exam findings, course so far in this hospital admission, pertinent laboratory and imaging results. I agree with the above findings, assessment and plan. In addition, continue Zyvox and Cefepime for left foot cellulitis, with ulcer. Follow up final wound cx results. Follow up results of the angiogram.
--- NOTE | 2018-07-15 15:17 | PN ---
DATE: 07/15/2018 CARDIOLOGY FOLLOWUP SUBJECTIVE: The patient is scheduled for peripheral angiogram today given his abnormal FAHAD's and high probability for peripheral vascular disease. PHYSICAL EXAMINATION: VITAL SIGNS: Blood pressure 119/66 and heart rate is in the 80s. NECK: Negative JVD. LUNGS: Without rales. HEART: With S1 and S2. EXTREMITIES: Without edema. LABORATORY DATA: BUN and creatinine are 35 and 2.0. Glucose is 119. Hemoglobin is 9. IMPRESSION: 1. Severe peripheral vascular disease. 2. Renal insufficiency. 3. Dilated cardiomyopathy with an ejection fraction of 35%. 4. Anemia. 5. Foot pain. PLAN: Given these findings, the patient peripheral angiogram today. The patient has increased risk for contrast nephropathy, given his renal insufficiency and diabetes mellitus. Judicious use of IV fluids would be important given his diminished LV function. Milton Murrell MD
[2018-07-15] MEDS ORDERED: Nitroglycerin 50mg in D5W 50 MG/250 ML BOTTLE IV ONE (17:27)
[2018-07-15] MEDS ORDERED: Iodixanol 320 MG/ML 200 ML BOTTLE IV ONE (17:27)
[2018-07-15] MEDS ORDERED: Lidocaine 2% Inj (20ml) ONE (17:27)
[2018-07-15] MEDS ORDERED: Iodixanol 320 mg/ml 150 ml Bottle IV ONE (17:27)
[2018-07-15] MEDS ORDERED: Midazolam 2 MG/2 ML VIAL ONE ×2 (18:01→18:20)
--- NOTE | 2018-07-15 19:25 | US ---
Date of service: 07/15/2018 PROCEDURE: Bladder ultrasound, postvoid residual HISTORY: EMIL. please eval for PVR COMPARISON: No prior TECHNIQUE: Real-time transabdominal ultrasound examination of the bladder was performed. FINDINGS: There is a prevoid bladder volume of 619 cc. There is a postvoid bladder volume of 161 cc. The bladder wall has mild trabeculation without focal mass. IMPRESSION: 161 cc postvoid residual.
[2018-07-16 00:15] LABS: ALBUMIN (PEP) 3.6 g/dL (3.8-4.8); ALPHA-1-GLOBULIN (PEP) 0.3 g/dL (0.2-0.3)
[2018-07-16 02:20] VITALS: RESP 20
[2018-07-16] MEDS: Sodium Chloride 0.45% 1,000 ML IV SCH (05:43)
[2018-07-16] MEDS: Pantoprazole 40 mg EC Tab PO SCH (05:46)
[2018-07-16 06:20] VITALS: TEMP 98.7; O2SAT 97
[2018-07-16 07:45] LABS: BASO # 0.02 K/mm3 (0.0-2.0); BASO % 0.2 % (0.0-3.0); EOS # 0.3 (0.0-0.7); EOS % 3.9 % (1.5-5.0); GRAN # 6.25 (1.4-6.5); GRAN % 71.1 % (50.0-68.0); HEMOGLOBIN 9.2 g/dL (14.0-18.0); LYMPH % 10.9 % (22.0-35.0); MEAN CELL VOLUME 101.4 fl (80.0-105.0); MEAN CORPUSCULAR HGB CONC 32.5 g/dl (31.0-37.0); MEAN PLATELET VOLUME 9.9 fl (7.0-11.0); MONO # 1.2 (0.1-0.6); MONO % 13.9 % (1.0-6.0); RBC 2.79 10^6/uL (3.5-6.1); RED CELL DISTRIBUTION WIDTH 15.7 % (11.5-14.5); WHITE BLOOD COUNT 8.8 10^3/uL (4.5-11.0)
[2018-07-16 08:05] LABS: ALB/GLOB RATIO 1.4 (1.1-1.8); ALBUMIN 3.8 g/dL (3.0-4.8); BILIRUBIN,DIRECT 0.3 mg/dL (0.0-0.4); CALCIUM 8.5 mg/dL (8.4-10.5)
--- NOTE | 2018-07-16 08:59 | VASCULAR ---
Date of service: 07/15/2018 PROCEDURE: 1. Abdominal aortogram and selective left lower extremity arteriogram 2. Left popliteal artery drug-eluting balloon angioplasty HISTORY: Severe peripheral vascular disease. Ischemic ulceration at left 2nd toe amputation site. Renal insufficiency. PHYSICIAN(S): Milton Lujan M.D. TECHNIQUE: The relative risks and indications of the procedure were explained to the patient and consent obtained. The patient was hydrated prior to the procedure and the appropriate labs drawn. Only a left lower extremity arteriogram was performed due to the patient's renal insufficiency. The patient was placed supine on the arteriogram table and the right groin prepped and draped in the usual sterile fashion. Conscious sedation and monitoring were provided throughout the procedure by a nurse. Via a right common femoral artery approach, a 5 Dutch sheath was placed in the right groin. Through the sheath and over a guidewire, a 5 Dutch flush catheter was placed in the abdominal aorta at the level of the renal arteries and a PA DSA abdominal aortogram performed. The catheter was pulled down to the aortic bifurcation and an LPO DSA abdominal and pelvic arteriogram performed. The catheter was advanced over the bifurcation and placed in the left common femoral artery. A sub selective left lower extremity DSA arteriogram was performed. This included magnification views of the left foot. A 6 Dutch 65 cm destination sheath was placed in the mid left SFA. Heparin and nitroglycerin were given. The critical stenosis in the mid left popliteal artery was crossed with a 5 Dutch catheter and angled Glidewire. Exchange is made for a 0.018 support wire. The left popliteal artery was dilated with a 5 mm by 120 mm drug-eluting balloon. A good angiographic result was obtained. No stent was required. Completion angiograms were performed. The sheath was removed hemostasis obtained with a Perclose device FINDINGS: There is a single right renal artery and 2 left renal arteries present. The renal arteries have mild smooth calcified disease proximally. The infrarenal abdominal aorta is smoothly calcified and patent. The aortic bifurcation is patent. The common and external iliac arteries are widely patent with calcified disease. The internal iliac arteries are patent bilaterally Left lower extremity: The left common femoral artery is patent. The left profunda femoral artery is patent with distal disease. There is smooth calcified disease of the left SFA. No radiographically significant stenosis is seen. There is a critical stenosis of the left popliteal artery at the knee. The left trifurcation is occluded. All 3 left tibial arteries are occluded throughout their course. There are numerous small collateral vessels present. There is extensive left pedal occlusive disease. The left dorsalis pedis artery is not opacified. A single branch of the left plantar arch is opacified. IMPRESSION: 1.Severe left trifurcation, tibial, and pedal occlusive disease. 2. Successful left popliteal artery drug-eluting balloon angioplasty. 3. It is uncertain with the extensive chronic distal occlusive disease whether the ulceration will heal. Unfortunately, revascularization options are extremely limited. Continued wound care and possibly hyperbaric treatment may be useful.
--- NOTE | 2018-07-16 09:26 | CP.PCM.PN ---
Subjective - Date & Time of Evaluation Date of Evaluation: 07/16/18 Time of Evaluation: 09:25 - Subjective Subjective: Podiatry Progress Note for Dr. Heller 72M patient seen and evaluated at bedside for L foot ulceration secondary to non-healing second digit amputation and PAD. Patient resting comfortably and in NAD. He states that he "feels well today" and is only reporting minor pain to his L big toe. Denies any other pedal complaints at this time. Denies N/V/F/SOB/CP. Objective - Vital Signs/Intake and Output Vital Signs (last 24 hours): Temp Pulse Resp BP Pulse Ox 98.7 F 70 20 99/51 L 97 07/16/18 06:00 07/16/18 06:00 07/16/18 06:00 07/16/18 06:00 07/16/18 06:00 Intake and Output: 07/16/18 07/16/18 06:59 18:59 Intake Total 2940 Output Total 2850 Balance 90 - Medications Medications: Current Medications Acetaminophen (Tylenol 325mg Tab) 650 mg PO Q6 PRN PRN Reason: TEMP>=99.5F Last Admin: 07/14/18 13:01 Dose: 650 mg Acetaminophen (Tylenol 650 Mg Supp) 650 mg RC Q6H PRN PRN Reason: TEMP>=99.5F Acetylcysteine (Acetylcysteine 20%) 3 ml PO BID [facility] Stop: 07/17/18 18:00 Last Admin: 07/15/18 12:23 Dose: 3 ml Allopurinol (Zyloprim) 100 mg PO DAILY [facility] Last Admin: 07/15/18 10:05 Dose: 100 mg Aspirin (Ecotrin) 81 mg PO DAILY [facility] Last Admin: 07/15/18 10:03 Dose: 81 mg Atorvastatin Calcium (Lipitor) 20 mg PO DIN [facility] Last Admin: 07/15/18 18:55 Dose: Not Given Cilostazol (Pletal) 50 mg PO BID [facility] Last Admin: 07/15/18 18:56 Dose: Not Given Docusate Sodium (Colace) 100 mg PO TID [facility] Last Admin: 07/15/18 18:54 Dose: Not Given Ergocalciferol (Drisdol 50,000 Intl Units Cap) 1 cap PO Q7D [facility] Last Admin: 07/14/18 16:39 Dose: 1 cap Ferrous Sulfate (Feosol) 324 mg PO BID [facility] Last Admin: 07/15/18 18:54 Dose: Not Given Heparin Sodium (Porcine) (Heparin) 5,000 units SC Q8 [facility]; Protocol Last Admin: 07/16/18 05:46 Dose: 5,000 units Sodium Chloride (Sodium Chloride 0.45%) 1,000 mls @ 80 mls/hr IV .[id number] [facility] Stop: 07/16/18 12:00 Last Admin: 07/16/18 05:43 Dose: 80 mls/hr Linezolid (Zyvox 600mg/300ml D5w) 600 mg in 300 mls @ 200 mls/hr IVPB Q12 [facility]; Protocol Stop: 07/21/18 10:01 Last Admin: 07/15/18 22:22 Dose: 200 mls/hr Cefepime HCl (Maxipime 2gm) 2 gm in 100 mls @ 100 mls/hr IVPB DAILY [facility]; Protocol Stop: 07/19/18 15:16 Last Admin: 07/15/18 10:04 Dose: 100 mls/hr Insulin Human Lispro (Humalog Med) 0 units SC AC [facility]; Protocol Last Admin: 07/15/18 16:30 Dose: Not Given Metoprolol Tartrate (Lopressor) 25 mg PO BID [facility] Last Admin: 07/15/18 18:56 Dose: Not Given Ondansetron HCl (Zofran Inj) 4 mg IVP Q4H PRN PRN Reason: Nausea/Vomiting Pantoprazole Sodium (Protonix Ec Tab) 40 mg PO 0600 [facility] Last Admin: 07/16/18 05:46 Dose: 40 mg Vitamin B Complex/Vit C/Folic Acid (Nephro-Sumit) 1 tab PO 0800 [facility] Last Admin: 07/15/18 10:04 Dose: 1 tab - Labs Labs: 07/16/18 07:20 07/16/18 07:20 PT 11.4 SECONDS (9.4-12.5) 07/12/18 18:12 INR 1.00 07/12/18 18:12 APTT 27.5 Seconds (25.1-36.5) 07/12/18 18:12 - Constitutional Appears: Well, Non-toxic, No Acute Distress - Extremities Exam Additional comments: B/L lower extremity focused exam: Vascular: DP/PT non-palpable, CFT > 3 seconds to digits x9, TG warm to cool bilaterally, +1 edema appreciated to dorsal aspect of L foot in the first interspace Ortho: Tenderness to palpation of gouty nodules to L foot, MMT 4/5, Right HAV deformity bilaterally, rigid 3rd digit HT to left Neuro: Gross sensation intact, protective sensation diminished Derm: Ulceration noted to first interspace on the L at the site of previous second digit amputation. Measuring about 1.5 x 1 x .1 cm, 100% fibrotic base, decreasing in size, mild serous drainage, no purulence, no tunneling appreciated, no probe to bone, mild erythema appreciated. Interdigital m aceration in other webspaces resolved. Elongated, dystrophic nails x9 - Neurological Exam Neurological Exam: Alert, Awake, Oriented x3 - Psychiatric Exam Psychiatric exam: Normal Affect, Normal Mood Assessment and Plan - Assessment and Plan (Free Text) Assessment: 72M patient seen and evaluated at bedside for L foot ulceration secondary to non-healing second digit amputation and PAD; ulceration site resolving at this time Plan: Patient seen and evaluated at bedside with Dr. Heller Afebrile, WBC 8.9, ESR 30 B/L LE US; no evidence of DVT L foot wound culture; Pseudomonas, Klebsiella ID consulted, reccs appreciated L foot x-rays taken; suspicious for OM at hallux, 1st met, 3rd and 4th mets. Diffuse degenerative joint disease throughout L foot, prior 2nd digit amp Lower extremity MRI ordered to rule out OM vs arthritic changes; findings suggestive of advanced gout arthritis. Skin ulcer adjacent to the 1st MTPJ. No evidence of abscess formation. No definitive evidence of OM Arterial US: FAHAD R 0.56, L 0.3; B/L distal SFA, politeal, and trifurcation; B/L tibial disease - Patient went for angio yesterday with Dr. Lujan. Severe left trifurcation, tibial, and pedal occlusive disease. Successful left popliteal artery drug- eluting balloon angioplasty. Ucertain with the extensive chronic distal occlusive disease whether ulceration will heal. Unfortunately revascularization options are limited. Continued wound care and possibly hyperbaric treatment may be useful. Local wound care; betadine and DSD Patient stable from podiatry stand point, pending d/c patient to f/u in Dr. Milton Heller's office within the week of discharge for continued wound care
--- NOTE | 2018-07-16 09:37 | CP.PCM.PN ---
Subjective - Date & Time of Evaluation Date of Evaluation: 07/16/18 Time of Evaluation: 09:15 - Subjective Subjective: (covering for Dr. Ling) Patient is seen this morning. He is complaining of pain in his left big toe. Objective - Vital Signs/Intake and Output Vital Signs (last 24 hours): Temp Pulse Resp BP Pulse Ox 98.7 F 70 20 99/51 L 97 07/16/18 06:00 07/16/18 06:00 07/16/18 06:00 07/16/18 06:00 07/16/18 06:00 Intake and Output: 07/16/18 07/16/18 06:59 18:59 Intake Total 2940 Output Total 2850 Balance 90 - Medications Medications: Current Medications Acetaminophen (Tylenol 325mg Tab) 650 mg PO Q6 PRN PRN Reason: TEMP>=99.5F Last Admin: 07/14/18 13:01 Dose: 650 mg Acetaminophen (Tylenol 650 Mg Supp) 650 mg RC Q6H PRN PRN Reason: TEMP>=99.5F Acetylcysteine (Acetylcysteine 20%) 3 ml PO BID [facility] Stop: 07/17/18 18:00 Last Admin: 07/15/18 12:23 Dose: 3 ml Allopurinol (Zyloprim) 100 mg PO DAILY [facility] Last Admin: 07/15/18 10:05 Dose: 100 mg Aspirin (Ecotrin) 81 mg PO DAILY [facility] Last Admin: 07/15/18 10:03 Dose: 81 mg Atorvastatin Calcium (Lipitor) 20 mg PO DIN [facility] Last Admin: 07/15/18 18:55 Dose: Not Given Cilostazol (Pletal) 50 mg PO BID [facility] Last Admin: 07/15/18 18:56 Dose: Not Given Docusate Sodium (Colace) 100 mg PO TID [facility] Last Admin: 07/15/18 18:54 Dose: Not Given Ergocalciferol (Drisdol 50,000 Intl Units Cap) 1 cap PO Q7D [facility] Last Admin: 07/14/18 16:39 Dose: 1 cap Ferrous Sulfate (Feosol) 324 mg PO BID [facility] Last Admin: 07/15/18 18:54 Dose: Not Given Heparin Sodium (Porcine) (Heparin) 5,000 units SC Q8 [facility]; Protocol Last Admin: 07/16/18 05:46 Dose: 5,000 units Sodium Chloride (Sodium Chloride 0.45%) 1,000 mls @ 80 mls/hr IV .[id number] [facility] Stop: 07/16/18 12:00 Last Admin: 07/16/18 05:43 Dose: 80 mls/hr Linezolid (Zyvox 600mg/300ml D5w) 600 mg in 300 mls @ 200 mls/hr IVPB Q12 [facility]; Protocol Stop: 07/21/18 10:01 Last Admin: 07/15/18 22:22 Dose: 200 mls/hr Cefepime HCl (Maxipime 2gm) 2 gm in 100 mls @ 100 mls/hr IVPB DAILY [facility]; Protocol Stop: 07/19/18 15:16 Last Admin: 07/15/18 10:04 Dose: 100 mls/hr Insulin Human Lispro (Humalog Med) 0 units SC AC [facility]; Protocol Last Admin: 07/15/18 16:30 Dose: Not Given Metoprolol Tartrate (Lopressor) 25 mg PO BID [facility] Last Admin: 07/15/18 18:56 Dose: Not Given Ondansetron HCl (Zofran Inj) 4 mg IVP Q4H PRN PRN Reason: Nausea/Vomiting Pantoprazole Sodium (Protonix Ec Tab) 40 mg PO 0600 [facility] Last Admin: 07/16/18 05:46 Dose: 40 mg Vitamin B Complex/Vit C/Folic Acid (Nephro-Sumit) 1 tab PO 0800 [facility] Last Admin: 07/15/18 10:04 Dose: 1 tab - Labs Labs: 07/16/18 07:20 07/16/18 07:20 PT 11.4 SECONDS (9.4-12.5) 07/12/18 18:12 INR 1.00 07/12/18 18:12 APTT 27.5 Seconds (25.1-36.5) 07/12/18 18:12 - Constitutional Appears: No Acute Distress - Head Exam Head Exam: ATRAUMATIC, NORMOCEPHALIC - Respiratory Exam Respiratory Exam: Clear to Ausculation Bilateral, NORMAL BREATHING PATTERN - Cardiovascular Exam Cardiovascular Exam: REGULAR RHYTHM, +S1, +S2 - GI/Abdominal Exam GI & Abdominal Exam: Soft, Normal Bowel Sounds. absent: Tenderness - Extremities Exam Additional comments: left big toe bandage - Neurological Exam Neurological Exam: Alert, Awake, Oriented x3 Assessment and Plan - Assessment and Plan (Free Text) Assessment: Left foot cellulitis Acute Kidney Injury DMII Gout Dilated cardiomyopathy with EF 35% Plan: Patient is on antibiotics for cellulitis of the left foot. He is currently on Zyvox and Cefepime. Discussed with Dr. Milton Lujan. Patient underwent angiogram yesterday. Patient has peripheral vascular disease but vessel was not able to be opened up. Patient will require close podiatry followup for wound care. continue antibiotics as per infectious disease. Patient is unable to walk and would most likely need JALEN.
[2018-07-16] MEDS: Cilostazol 50 mg Tab UD PO SCH (09:40)
[2018-07-16] MEDS: Multivitamin Vitamin B Complex (Nephro-Vite) Tab PO SCH (09:40)
[2018-07-16] MEDS: Insulin Lispro (humaLOG) MEDIUM Coverage SC SCH ×2 (09:41→11:39)
[2018-07-16] MEDS: Cefepime IV 2 gm in NS 2 GM/100 ML BAG IVPB SCH (09:42)
[2018-07-16] MEDS: Linezolid 600 mg in D5W 300 ml 600 MG/300 ML BAG IVPB SCH (09:42)
--- NOTE | 2018-07-16 11:26 | CP.PCM.APN ---
Subjective - Date & Time of Evaluation Date of Evaluation: 07/16/18 Time of Evaluation: 09:30 - Subjective Subjective: pt seen at bedside, Review of Systems - Review of Systems All systems: reviewed and no additional remarkable complaints except - Integumentary Additional comments: intermittent left foot pain Objective - Vital Signs/Intake and Output Vital Signs (last 24 hours): Temp Pulse Resp BP Pulse Ox 98.7 F 70 20 99/51 L 97 07/16/18 06:00 07/16/18 06:00 07/16/18 06:00 07/16/18 06:00 07/16/18 06:00 Intake and Output: 07/16/18 07/16/18 06:59 18:59 Intake Total 2940 Output Total 2850 Balance 90 - Medications Medications: Current Medications Acetaminophen (Tylenol 325mg Tab) 650 mg PO Q6 PRN PRN Reason: TEMP>=99.5F Last Admin: 07/14/18 13:01 Dose: 650 mg Acetaminophen (Tylenol 650 Mg Supp) 650 mg RC Q6H PRN PRN Reason: TEMP>=99.5F Acetylcysteine (Acetylcysteine 20%) 3 ml PO BID [facility] Stop: 07/17/18 18:00 Last Admin: 07/15/18 12:23 Dose: 3 ml Allopurinol (Zyloprim) 100 mg PO DAILY [facility] Last Admin: 07/16/18 09:41 Dose: 100 mg Aspirin (Ecotrin) 81 mg PO DAILY [facility] Last Admin: 07/16/18 09:40 Dose: 81 mg Atorvastatin Calcium (Lipitor) 20 mg PO DIN [facility] Last Admin: 07/15/18 18:55 Dose: Not Given Cilostazol (Pletal) 50 mg PO BID [facility] Last Admin: 07/16/18 09:40 Dose: 50 mg Docusate Sodium (Colace) 100 mg PO TID [facility] Last Admin: 07/16/18 09:40 Dose: 100 mg Ergocalciferol (Drisdol 50,000 Intl Units Cap) 1 cap PO Q7D [facility] Last Admin: 07/14/18 16:39 Dose: 1 cap Ferrous Sulfate (Feosol) 324 mg PO BID [facility] Last Admin: 07/16/18 09:41 Dose: 324 mg Heparin Sodium (Porcine) (Heparin) 5,000 units SC Q8 [facility]; Protocol Last Admin: 07/16/18 05:46 Dose: 5,000 units Linezolid (Zyvox 600mg/300ml D5w) 600 mg in 300 mls @ 200 mls/hr IVPB Q12 [facility]; Protocol Stop: 07/21/18 10:01 Last Admin: 07/16/18 09:42 Dose: 200 mls/hr Cefepime HCl (Maxipime 2gm) 2 gm in 100 mls @ 100 mls/hr IVPB DAILY [facility]; Protocol Stop: 07/19/18 15:16 Last Admin: 07/16/18 09:42 Dose: 100 mls/hr Insulin Human Lispro (Humalog Med) 0 units SC AC [facility]; Protocol Last Admin: 07/16/18 09:41 Dose: Not Given Metoprolol Tartrate (Lopressor) 25 mg PO BID [facility] Last Admin: 07/16/18 09:41 Dose: Not Given Ondansetron HCl (Zofran Inj) 4 mg IVP Q4H PRN PRN Reason: Nausea/Vomiting Pantoprazole Sodium (Protonix Ec Tab) 40 mg PO 0600 [facility] Last Admin: 07/16/18 05:46 Dose: 40 mg Tamsulosin HCl (Flomax) 0.4 mg PO DAILY [facility] Vitamin B Complex/Vit C/Folic Acid (Nephro-Usmit) 1 tab PO 0800 [facility] Last Admin: 07/16/18 09:40 Dose: 1 tab - Labs Labs: 07/16/18 07:20 07/16/18 07:20 PT 11.4 SECONDS (9.4-12.5) 07/12/18 18:12 INR 1.00 07/12/18 18:12 APTT 27.5 Seconds (25.1-36.5) 07/12/18 18:12 - Constitutional Appears: No Acute Distress - Head Exam Head Exam: ATRAUMATIC, NORMOCEPHALIC - Eye Exam Eye Exam: Normal appearance Pupil Exam: NORMAL ACCOMODATION - Respiratory Exam Respiratory Exam: Decreased Breath Sounds - Cardiovascular Exam Cardiovascular Exam: +S1, +S2 - GI/Abdominal Exam GI & Abdominal Exam: Soft - Extremities Exam Additional comments: left foot tenderness to palpation of gouty nodule, ulceration to 1st and 2nd digit amp area toes with redness, erythema, nV intact distally - Neurological Exam Neurological Exam: Alert, Awake - Skin Skin Exam: Dry, Intact, Normal Color Assessment and Plan - Assessment and Plan (Free Text) Plan: 72 yr old male who has pmh sig for dm, 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 MRI foot reports advanced gouty arthritis, no osteo, Pt s/p fem angio for Left illiac occlusive dx, cath report noted. successful L Pop artery DE ballooon angioplasty podiatry notes rev'd re wounc care an doutpt follow up discuss with Dr Tijerina microbiology cultures and antibiotics x 7 days total P.T recommends TCU , dicuss with [facility] Discuss with Dr Marissa cabello to tx to TCU when bed available BPCI/TIC - BPCIA/TIC Educated pt/family on BPCIA/CIR/Med to Bed Programs: Yes Flyers given, including CMS Beneficiary letter: Yes Pt/family verbalized understanding & agreed to program: Yes
--- NOTE | 2018-07-16 11:51 | CP.PCM.PN ---
Subjective - Date & Time of Evaluation Date of Evaluation: 07/16/18 Time of Evaluation: 11:49 - Subjective Subjective: Nephrology Consultation Note: Assessment: Stable Acute Kidney Injury (N17.9) ? etiology. possible NSAIDs as also with peripheral eosinophilia: improving Hyperkalemia metabolic acidosis Diabetic chronic Kidney Disease (E11.22) Hypertensive Chronic Kidney Disease (I12.9) ? Chronic Kidney Disease (N18.3) Stage 3 without proteinuria (R80.9) likely due to HTN/vasc disease Anemia (D64.9), DM, gout PVD severe MR/TR with sys CHF LVEF 35-40% Plan No acute need for renal replacement therapy at this time. Hypertension control with meds as ordered. Maintain hemodynamics stable. Avoid hypotension. Patient not on ACEI/ARB due to recent EMIL and hyperkalemia. consider to add veltassa as outpt Monitor Input/Output, daily weights and renal function with basic metabolic panel low K diet and medical management of hyperkalemia as needed continue with iron and MVI. PRBC as needed. dose of aransep 40 mcg (07.14.18) please obtain records from PCP about past kidney function results started weekly vit d PVR 161 ml. started flomax. consider outpt evaluation consider d/c cornejo Dose meds/antibiotics for reduced GFR. Avoid fleets enema/magnesium based laxatives. Avoid nephrotoxins/NSAIDs/ iodinated contrast (unless needed emergently) Glycemic control Further work up/management as per primary team stable from renal perspective Thanks for allowing me to participate in care of your patient. Will follow patient with you. Please call if any Qs. had d/w team Dr Anjum Padron Office: [phone] Chief Complaint; left foot ulcer Reason for consult: Acute Kidney Injury HPI: Pt is a 72 M with hx of diabetes Mellitus (30 years), hypertension (years) ? PVD, gout presented with complaints of abnormal kidney fxn and left foot ulcer, being managed for EMIL and possible PVD Denies OTC/herbal meds or NSAIDs. pt says he used to take motrin in past but not these days. No recent iodinated contrast exposure. No obvious episodes of low BP. pt not aware about kidney disease in past ROS: Cardiovascular: No chest pain. Pulmonary: No shortness of breath Gastrointestinal: denies abdominal pain No nausea. No vomiting. Genitourinary: No pain while urinating. Denies blood in urine. sometimes feels hesitancy All other negative except as mentioned in HPI Physical Examination: General Appearance: Comfortable, in no acute respiratory distress, co-operative . Vitals reviewed and noted as below Head; Atraumatic, normocephalic ENT: no ulcers no thrush. Tongue is midline. Oropharynx: no rash or ulcers. EYES: Pupils are equal, round and reactive to light accommodation. Eye muscles and extraocular movement intact. Sclera is anicteric. Neck; supple no lymphadenopathy, no thyromegaly or bruit Lungs: Normal respiratory rate/effort. Breath sounds bilateral equal and clear Heart: Normal rate. s1s2 normal. No rub or gallop. Extremities: no edema. No varicose veins. left foot great toe erythema. pedal pulses not palpable both feets Neurological: Patient is alert, awake and oriented to person, place and time. No focal deficit. Strength bilateral appropriate and equal Skin: Warm and dry. Normal turgor. No rash. Palpitation: Normal elasticity for age Abdomen: Abdomen is soft. Bowel sounds +. There is no abdominal tenderness, no g uarding/rigidity no organomegaly Psych: lack insight and normal affect/mood MSK: no joint tenderness or swelling. Digits and nails normal, no deformity : kidney or bladder not palpable. has cornejo Labs/imaging reviewed. Past medical history, past surgical history, family history, social history, allergy reviewed and noted as below Family hx: no hx of CKD. Rest non-contributory Objective - Vital Signs/Intake and Output Vital Signs (last 24 hours): Temp Pulse Resp BP Pulse Ox 98.7 F 88 20 99/51 L 97 07/16/18 06:00 07/16/18 10:00 07/16/18 06:00 07/16/18 06:00 07/16/18 06:00 Intake and Output: 07/16/18 07/16/18 06:59 18:59 Intake Total 2940 Output Total 2850 Balance 90 - Medications Medications: Current Medications Acetaminophen (Tylenol 325mg Tab) 650 mg PO Q6 PRN PRN Reason: TEMP>=99.5F Last Admin: 07/14/18 13:01 Dose: 650 mg Acetaminophen (Tylenol 650 Mg Supp) 650 mg RC Q6H PRN PRN Reason: TEMP>=99.5F Acetylcysteine (Acetylcysteine 20%) 3 ml PO BID [facility] Stop: 07/17/18 18:00 Last Admin: 07/15/18 12:23 Dose: 3 ml Allopurinol (Zyloprim) 100 mg PO DAILY [facility] Last Admin: 07/16/18 09:41 Dose: 100 mg Aspirin (Ecotrin) 81 mg PO DAILY [facility] Last Admin: 07/16/18 09:40 Dose: 81 mg Atorvastatin Calcium (Lipitor) 20 mg PO DIN [facility] Last Admin: 07/15/18 18:55 Dose: Not Given Cilostazol (Pletal) 50 mg PO BID [facility] Last Admin: 07/16/18 09:40 Dose: 50 mg Docusate Sodium (Colace) 100 mg PO TID [facility] Last Admin: 07/16/18 09:40 Dose: 100 mg Ergocalciferol (Drisdol 50,000 Intl Units Cap) 1 cap PO Q7D [facility] Last Admin: 07/14/18 16:39 Dose: 1 cap Ferrous Sulfate (Feosol) 324 mg PO BID [facility] Last Admin: 07/16/18 09:41 Dose: 324 mg Heparin Sodium (Porcine) (Heparin) 5,000 units SC Q8 [facility]; Protocol Last Admin: 07/16/18 05:46 Dose: 5,000 units Linezolid (Zyvox 600mg/300ml D5w) 600 mg in 300 mls @ 200 mls/hr IVPB Q12 [facility]; Protocol Stop: 07/21/18 10:01 Last Admin: 07/16/18 09:42 Dose: 200 mls/hr Cefepime HCl (Maxipime 2gm) 2 gm in 100 mls @ 100 mls/hr IVPB DAILY [facility]; Protocol Stop: 07/19/18 15:16 Last Admin: 07/16/18 09:42 Dose: 100 mls/hr Insulin Human Lispro (Humalog Med) 0 units SC AC [facility]; Protocol Last Admin: 07/16/18 11:39 Dose: 7 unit Metoprolol Tartrate (Lopressor) 25 mg PO BID [facility] Last Admin: 07/16/18 09:41 Dose: Not Given Ondansetron HCl (Zofran Inj) 4 mg IVP Q4H PRN PRN Reason: Nausea/Vomiting Pantoprazole Sodium (Protonix Ec Tab) 40 mg PO 0600 [facility] Last Admin: 07/16/18 05:46 Dose: 40 mg Tamsulosin HCl (Flomax) 0.4 mg PO DAILY [facility] Vitamin B Complex/Vit C/Folic Acid (Nephro-Sumit) 1 tab PO 0800 [facility] Last Admin: 07/16/18 09:40 Dose: 1 tab - Labs Labs: 07/16/18 07:20 07/16/18 07:20 PT 11.4 SECONDS (9.4-12.5) 07/12/18 18:12 INR 1.00 07/12/18 18:12 APTT 27.5 Seconds (25.1-36.5) 07/12/18 18:12
--- NOTE | 2018-07-16 12:42 | PN ---
DATE: 07/16/2018 CARDIOLOGY FOLLOWUP SUBJECTIVE: The patient is status post balloon angioplasty of the left lower extremity. OBJECTIVE: VITAL SIGNS: Blood pressure is 99/51, heart rate in the 80s. NECK: Negative JVD. LUNGS: Without rales. HEART: Reveals S1, S2. EXTREMITIES: Improved from perfusion of the lower extremities. LABORATORY DATA: Creatinine is 1.8. Hemoglobin is 9.2. IMPRESSION: 1. Severe peripheral vascular disease. 2. Status post percutaneous transluminal angioplasty of the lower extremities. 3. Anemia. 4. Dilated cardiomyopathy. 5. High probability for coronary artery disease. 6. Hypercholesterolemia. Given these findings, if the patient's renal function remains stable, the patient from a cardiac perspective can be discharged. I have discussed with the family about the need to investigate coronary artery disease given his high probability for CAD. We will arrange for an outpatient stress test. Milton Murrell MD
[2018-07-16 13:24] VITALS: BP 125/63
--- NOTE | 2018-07-16 13:55 | CP.PCM.PN ---
<Sergey Sellers - Last Filed: 07/16/18 13:51> Subjective - Date & Time of Evaluation Date of Evaluation: 07/16/18 Time of Evaluation: 07:30 - Subjective Subjective: ID progress note Patient with no complaints at this time. Patient tolerated angiogram well yesterday. Denies chest pain, nausea, vomiting, shortness of breath, fever, chills. Objective - Vital Signs/Intake and Output Vital Signs (last 24 hours): Temp Pulse Resp BP Pulse Ox 98.7 F 90 20 125/63 97 07/16/18 12:00 07/16/18 12:00 07/16/18 12:00 07/16/18 12:00 07/16/18 06:00 Intake and Output: 07/16/18 07/16/18 06:59 18:59 Intake Total 2940 Output Total 2850 Balance 90 - Medications Medications: Current Medications Acetaminophen (Tylenol 325mg Tab) 650 mg PO Q6 PRN PRN Reason: TEMP>=99.5F Last Admin: 07/14/18 13:01 Dose: 650 mg Acetaminophen (Tylenol 650 Mg Supp) 650 mg RC Q6H PRN PRN Reason: TEMP>=99.5F Acetylcysteine (Acetylcysteine 20%) 3 ml PO BID [facility] Stop: 07/17/18 18:00 Last Admin: 07/15/18 12:23 Dose: 3 ml Allopurinol (Zyloprim) 100 mg PO DAILY [facility] Last Admin: 07/16/18 09:41 Dose: 100 mg Aspirin (Ecotrin) 81 mg PO DAILY [facility] Last Admin: 07/16/18 09:40 Dose: 81 mg Atorvastatin Calcium (Lipitor) 20 mg PO DIN [facility] Last Admin: 07/15/18 18:55 Dose: Not Given Cilostazol (Pletal) 50 mg PO BID [facility] Last Admin: 07/16/18 09:40 Dose: 50 mg Docusate Sodium (Colace) 100 mg PO TID [facility] Last Admin: 07/16/18 09:40 Dose: 100 mg Ergocalciferol (Drisdol 50,000 Intl Units Cap) 1 cap PO Q7D [facility] Last Admin: 07/14/18 16:39 Dose: 1 cap Ferrous Sulfate (Feosol) 324 mg PO BID [facility] Last Admin: 07/16/18 09:41 Dose: 324 mg Heparin Sodium (Porcine) (Heparin) 5,000 units SC Q8 [facility]; Protocol Last Admin: 07/16/18 05:46 Dose: 5,000 units Linezolid (Zyvox 600mg/300ml D5w) 600 mg in 300 mls @ 200 mls/hr IVPB Q12 [facility]; Protocol Stop: 07/21/18 10:01 Last Admin: 07/16/18 09:42 Dose: 200 mls/hr Cefepime HCl (Maxipime 2gm) 2 gm in 100 mls @ 100 mls/hr IVPB DAILY [facility]; Protocol Stop: 07/19/18 15:16 Last Admin: 07/16/18 09:42 Dose: 100 mls/hr Insulin Human Lispro (Humalog Med) 0 units SC AC [facility]; Protocol Last Admin: 07/16/18 11:39 Dose: 7 unit Metoprolol Tartrate (Lopressor) 25 mg PO BID [facility] Last Admin: 07/16/18 09:41 Dose: Not Given Ondansetron HCl (Zofran Inj) 4 mg IVP Q4H PRN PRN Reason: Nausea/Vomiting Pantoprazole Sodium (Protonix Ec Tab) 40 mg PO 0600 [facility] Last Admin: 07/16/18 05:46 Dose: 40 mg Tamsulosin HCl (Flomax) 0.4 mg PO DAILY [facility] Vitamin B Complex/Vit C/Folic Acid (Nephro-Sumit) 1 tab PO 0800 [facility] Last Admin: 07/16/18 09:40 Dose: 1 tab - Labs Labs: 07/16/18 07:20 07/16/18 07:20 PT 11.4 SECONDS (9.4-12.5) 07/12/18 18:12 INR 1.00 07/12/18 18:12 APTT 27.5 Seconds (25.1-36.5) 07/12/18 18:12 - Constitutional Appears: Non-toxic, No Acute Distress - Head Exam Head Exam: ATRAUMATIC, NORMAL INSPECTION, NORMOCEPHALIC - ENT Exam ENT Exam: Mucous Membranes Moist - Respiratory Exam Respiratory Exam: Clear to Ausculation Bilateral, NORMAL BREATHING PATTERN. absent: Rhonchi, Wheezes, Respiratory Distress - Cardiovascular Exam Cardiovascular Exam: RRR, +S1, +S2 - GI/Abdominal Exam GI & Abdominal Exam: Soft, Normal Bowel Sounds. absent: Tenderness - Extremities Exam Extremities Exam: absent: Pedal Edema Additional comments: Left foot bandaged. No draining or erythema - Neurological Exam Neurological Exam: Alert, Awake, Oriented x3 - Psychiatric Exam Psychiatric exam: Normal Affect, Normal Mood - Skin Skin Exam: Intact, Normal Color, Warm Assessment and Plan - Assessment and Plan (Free Text) Plan: Left foot cellulitis Acute kidney injury, improving Hx of DM type 2 Hx of Gout Plan Wound cultures growing Pseudomonas and Klebsiella Blood cultures negative at 24 hours Stop Zyvox Continue Cefepime Femoral angiogram displays severe lower extremity disease, Left popliteal stent placed No surgical intervention as per podiatry at this time Marlo, PGY-3 <Rusty Tijerina - Last Filed: 07/16/18 22:32> Objective - Vital Signs/Intake and Output Vital Signs (last 24 hours): Temp Pulse Resp BP Pulse Ox 98.7 F 103 H 20 125/63 97 07/16/18 12:00 07/16/18 14:00 07/16/18 12:00 07/16/18 12:00 07/16/18 06:00 - Labs Labs: 07/16/18 07:20 07/16/18 07:20 PT 11.4 SECONDS (9.4-12.5) 07/12/18 18:12 INR 1.00 07/12/18 18:12 APTT 27.5 Seconds (25.1-36.5) 07/12/18 18:12 Assessment and Plan - Assessment and Plan (Free Text) Plan: Infectious diseases Attending Physician Attestation Patient seen and examined, discussed with medical coding technician. I have reviewed the patient's history of present illness, past medical, social, personal and family histories, pertinent physical exam findings, course so far in this hospital admission, pertinent laboratory and imaging results. I agree with the above findings, assessment and plan. In addition, continue Cefepime for left foot cellulitis with severe PAD, S/P left popliteal stent placement. Wound growing Pseudomonas and Klebsiella. Will monitor clinically.
[2018-07-16 15:51] VITALS: PULSE 103
[2018-07-16 17:16] LABS: METHYLMALONIC ACID,SERUM 142 nmol/L (87-318)
[2018-07-17 14:13] LABS: GLYCOMARK(R) 14.9 mcg/mL (7.3-36.6)
== END 2018-07-16 17:17 | DRG 253 ==
LOC: ED 10:40 → ERH 14:03 → 2RSO 19:27
PROVIDERS: ADMIT Internal Medicine; ATTEND Internal Medicine
PROC: 047N3Z1 Dilation of Left Popliteal Artery using Drug-Coated Balloon, Percutaneous Approach (ICD-10-PCS; principal; 2018-07-16)
DX: E11.51 Type 2 diabetes mellitus with diabetic peripheral angiopathy without gangrene (principal); N17.9 Acute kidney failure, unspecified; L03.116 Cellulitis of left lower limb; I42.0 Dilated cardiomyopathy; I13.0 Hypertensive heart and chronic kidney disease with heart failure and stage 1 through stage 4 chronic kidney disease, or unspecified chronic kidney disease; I50.22 Chronic systolic (congestive) heart failure; E87.2 Acidosis; M86.8X7 Other osteomyelitis, ankle and foot; E11.621 Type 2 diabetes mellitus with foot ulcer; L97.529 Non-pressure chronic ulcer of other part of left foot with unspecified severity; E87.5 Hyperkalemia; E11.69 Type 2 diabetes mellitus with other specified complication; E11.22 Type 2 diabetes mellitus with diabetic chronic kidney disease; N18.3 Chronic kidney disease, stage 3 (moderate); M19.072 Primary osteoarthritis, left ankle and foot; M85.872 Other specified disorders of bone density and structure, left ankle and foot; I20.9 Angina pectoris, unspecified; E11.40 Type 2 diabetes mellitus with diabetic neuropathy, unspecified; I27.20 Pulmonary hypertension, unspecified; M81.0 Age-related osteoporosis without current pathological fracture; K59.00 Constipation, unspecified; E78.5 Hyperlipidemia, unspecified; N28.1 Cyst of kidney, acquired; I08.3 Combined rheumatic disorders of mitral, aortic and tricuspid valves; M10.072 Idiopathic gout, left ankle and foot; D63.8 Anemia in other chronic diseases classified elsewhere; M25.475 Effusion, left foot; E78.00 Pure hypercholesterolemia, unspecified; B96.5 Pseudomonas (aeruginosa) (mallei) (pseudomallei) as the cause of diseases classified elsewhere; B96.1 Klebsiella pneumoniae [K. pneumoniae] as the cause of diseases classified elsewhere; Z79.84 Long term (current) use of oral hypoglycemic drugs; Z89.422 Acquired absence of other left toe(s); Z79.82 Long term (current) use of aspirin; Z87.891 Personal history of nicotine dependence

== ENCOUNTER 2018-07-16 17:17 | Inpatient (IN) | payer OTHER, MEDICARE ==
[2018-07-16] MEDS ORDERED: Acetylcysteine 20% Inhal Soln (4ml) IH SCH (20:00)
[2018-07-16] MEDS ORDERED: Sodium Chloride 0.9% 1,000 ML IV SCH (20:15)
[2018-07-16] MEDS ORDERED: Acetylcysteine 20% Inhal Soln (4ml) PO SCH (21:30)
[2018-07-16] MEDS: Insulin Reg-MEDIUM-Coverage SC SCH (21:46)
[2018-07-16] MEDS ORDERED: Pneumococcal 23-Valent Vaccine IM ONE (22:31)
[2018-07-16] MEDS ORDERED: Influenza Vaccine 60 mcg/0.5 mL SYR (4YR UP) IM ONE (22:31)
[2018-07-17] MEDS: Pantoprazole 40 mg EC Tab PO SCH (05:44)
[2018-07-17] MEDS ORDERED: Cefepime IV 2 gm in NS 2 GM/100 ML BAG IVPB SCH ×4 (06:26→10:00)
[2018-07-17] MEDS: Insulin Reg-MEDIUM-Coverage SC SCH ×4 (06:54→22:09)
[2018-07-17] MEDS: Cefepime IV 2 gm in NS 2 GM/100 ML BAG IVPB SCH (06:55)
[2018-07-17 07:07] LABS: BASO # 0.01 K/mm3 (0.0-2.0); BASO % 0.1 % (0.0-3.0); EOS # 0.6 (0.0-0.7); EOS % 6.4 % (1.5-5.0); GRAN # 6.12 (1.4-6.5); GRAN % 69.3 % (50.0-68.0); HEMOGLOBIN 8.8 g/dL (14.0-18.0); LYMPH # 1.1 (1.2-3.4); LYMPH % 12.1 % (22.0-35.0); MEAN CELL VOLUME 101.9 fl (80.0-105.0); MEAN CORPUSCULAR HGB CONC 32.4 g/dl (31.0-37.0); MEAN PLATELET VOLUME 10.1 fl (7.0-11.0); MONO # 1.1 (0.1-0.6); MONO % 12.1 % (1.0-6.0); RBC 2.67 10^6/uL (3.5-6.1); RED CELL DISTRIBUTION WIDTH 15.6 % (11.5-14.5); WHITE BLOOD COUNT 8.8 10^3/uL (4.5-11.0)
[2018-07-17 07:19] LABS: ALB/GLOB RATIO 1.3 (1.1-1.8); ALBUMIN 3.5 g/dL (3.0-4.8); BILIRUBIN,DIRECT 0.2 mg/dL (0.0-0.4); CALCIUM 8.4 mg/dL (8.4-10.5)
--- NOTE | 2018-07-17 08:17 | CP.PCM.HP ---
History of Present Illness - History of Present Illness History of Present Illness: 72 year old male with history of diabetes mellitus, gout, and dilated cardiomyopathy with ejection fraction of 35% was admitted to the telemetry floor of the [facility] with left foot cellulitis. Patient underwent angiogram with stent placement. He is now admitted to the [facility] for rehab to ambulate, wound care, antibiotic treatment and monitoring of his renal function. Present on Admission - Present on Admission Any Indicators Present on Admission: No History of DVT/PE: No History of Uncontrolled Diabetes: No Urinary Catheter: No Decubitus Ulcer Present: No Review of Systems - Constitutional Constitutional: absent: Chills, Fever, Lethargy - Cardiovascular Cardiovascular: absent: Chest Pain, Diaphoresis, Dyspnea - Respiratory Respiratory: absent: Cough, Dyspnea, Wheezing - Gastrointestinal Gastrointestinal: absent: Abdominal Pain, Nausea, Vomiting Past Patient History - Past Social History Smoking Status: Unknown If Ever Smoked - CARDIAC Hx Hypercholesterolemia: Yes (border line) Hx Hypertension: Yes - PULMONARY Hx Respiratory Disorders: No - NEUROLOGICAL Hx Neurological Disorder: No - HEENT Hx HEENT Problems: Yes (eyeglasses) - RENAL Hx Chronic Kidney Disease: No - ENDOCRINE/METABOLIC Hx Diabetes Mellitus Type 2: Yes - HEMATOLOGICAL/ONCOLOGICAL Hx Blood Disorders: No - INTEGUMENTARY Hx Dermatological Problems: Yes Other/Comment: +1 edema left foot/ankle pitting, left foot 2nd toe amputated, clear drainage noted, foot red ,swollen, painful, thick toenails. r ft +1 ankle edema, bunyons and great toes crooked b/l - MUSCULOSKELETAL/RHEUMATOLOGICAL Hx Falls: Yes - GASTROINTESTINAL Hx Gastrointestinal Disorders: Yes (CONSTIPATION) - GENITOURINARY/GYNECOLOGICAL Hx Genitourinary Disorders: Yes (ACUTE KIDNEY INJURY) Hx Reproductive Disorders: No - PSYCHIATRIC Hx Substance Use: No - SURGICAL HISTORY Other/Comment: Hernia repair. Foot surgery Meds Allergies/Adverse Reactions: Allergies Allergy/AdvReac Type Severity Reaction Status Date / Time No Known Allergies Allergy Verified 07/16/18 20:00 Physical Exam - Constitutional Appears: No Acute Distress - Head Exam Head Exam: ATRAUMATIC, NORMOCEPHALIC - Respiratory Exam Respiratory Exam: Clear to Auscultation Bilateral, NORMAL BREATHING PATTERN - Cardiovascular Exam Cardiovascular Exam: REGULAR RHYTHM, +S1, +S2 - GI/Abdominal Exam GI & Abdominal Exam: Normal Bowel Sounds, Soft. absent: Tenderness - Extremities Exam Additional comments: left foot bandage in place - Neurological Exam Neurological exam: Alert, Oriented x3 Results - Vital Signs Recent Vital Signs: Last Vital Signs Temp 98.3 F 07/16/18 22:12 Pulse 97 H 07/16/18 22:12 Resp 18 07/16/18 22:12 BP 116/71 07/16/18 22:12 Pulse Ox - Labs Result Diagrams: 07/17/18 06:00 07/17/18 06:00 Labs: Laboratory Results - last 24 hr 07/17/18 07/17/18 06:00 06:00 WBC 8.8 RBC 2.67 L Hgb 8.8 L Hct 27.2 L MCV 101.9 MCH 33.0 MCHC 32.4 RDW 15.6 H Plt Count 258 MPV 10.1 Gran % 69.3 H Lymph % (Auto) 12.1 L [place] % (Auto) 12.1 H Eos % (Auto) 6.4 H Baso % (Auto) 0.1 Gran # 6.12 Lymph # (Auto) 1.1 L [place] # (Auto) 1.1 H Eos # (Auto) 0.6 Baso # (Auto) 0.01 Sodium 139 Potassium 4.0 Chloride 104 Carbon Dioxide 26 Anion Gap 12 BUN 29 H Creatinine 1.9 H Est GFR ( Amer) 42 Est GFR (Non-Af Amer) 35 Random Glucose 153 H Calcium 8.4 Phosphorus 2.7 Magnesium 2.0 Total Bilirubin 0.8 Direct Bilirubin 0.2 AST 32 ALT 29 Alkaline Phosphatase 58 Total Protein 6.3 Albumin 3.5 Globulin 2.8 Albumin/Globulin Ratio 1.3 Assessment & Plan - Assessment and Plan (Free Text) Assessment: Left foot cellulitis EMIL DMII Gout Dilated cardiomyopathy with EF 35% Plan: Patient is admitted to the [facility] for physical therapy, wound care, antibiotic treatment and monitoring. continue IV Maxipime as per infectious disease. continue wound care as per podiatry creatinine has increased to 1.9 from 1.7 yesterday. continue IV fluids and re- check creatinine in the AM. Nephrology is on consult. Hemoglobin this morning has also decreased from 9.2 to 8.8. follow H&H. continue protonix. Patient is already on iron supplementation.
[2018-07-17] MEDS: Multivitamin Vitamin B Complex (Nephro-Vite) Tab PO SCH (08:47)
[2018-07-17] MEDS: Cilostazol 50 mg Tab UD PO SCH ×2 (09:50→17:41)
--- NOTE | 2018-07-17 10:36 | CP.PCM.PN ---
Subjective - Date & Time of Evaluation Date of Evaluation: 07/17/18 Time of Evaluation: 10:33 - Subjective Subjective: Podiatry Progress Note for Dr. Heller 72M patient seen and evaluated at bedside for L foot ulceration secondary to non-healing second digit amputation and PAD. Patient resting comfortably and in NAD. He states that he "feels well today" and is only reporting minor pain to his L big toe. Denies any other pedal complaints at this time. Denies N/V/F/SOB/CP. Objective - Vital Signs/Intake and Output Vital Signs (last 24 hours): Temp Pulse Resp BP Pulse Ox 98.3 F 88 18 106/58 L 98 07/16/18 22:12 07/17/18 09:27 07/16/18 22:12 07/17/18 08:47 07/17/18 09:27 Intake and Output: 07/17/18 07/17/18 06:59 18:59 Output Total 725 Balance -725 - Medications Medications: Current Medications Acetaminophen (Tylenol 650 Mg Supp) 650 mg RC Q6H PRN PRN Reason: Fever >100.4 F Allopurinol (Zyloprim) [address] [facility] Last Admin: 07/17/18 09:50 Dose: 100 mg Aspirin (Ecotrin) [address] [facility] Last Admin: 07/17/18 08:47 Dose: 81 mg Atorvastatin Calcium (Lipitor) [address] [facility] Cilostazol (Pletal) [address] [facility] Last Admin: 07/17/18 09:50 Dose: 50 mg Darbepoetin Arturo (Aranesp) [address] [facility] Docusate Sodium (Colace) [address] [facility] Last Admin: 07/17/18 09:50 Dose: 100 mg Ergocalciferol (Drisdol 50,000 Intl Units Cap) [address] [facility] Ferrous Sulfate (Feosol) [address] [facility] Last Admin: 07/17/18 09:50 Dose: 324 mg Heparin Sodium (Porcine) (Heparin) 5,[address] [facility]; Protocol Last Admin: 07/17/18 05:43 Dose: 5,000 units Cefepime HCl (Maxipime 2gm) 2 gm in 100 mls @ 100 mls/hr IVPB 0600 [facility]; Protocol Stop: 07/22/18 06:01 Last Admin: 07/17/18 06:55 Dose: 100 mls/hr Insulin Human Regular (Humulin R Med) [address] [facility]; Protocol Last Admin: 07/17/18 06:54 Dose: 1 unit Metoprolol Tartrate (Lopressor) 25 mg PO 0800,1800 [facility] Last Admin: 07/17/18 08:47 Dose: 25 mg Ondansetron HCl (Zofran Inj) 4 mg IVP Q4H PRN PRN Reason: Nausea/Vomiting Pantoprazole Sodium (Protonix Ec Tab) [address] [facility] Last Admin: 07/17/18 05:44 Dose: 40 mg Tamsulosin HCl (Flomax) 0.[address] [facility] Vitamin B Complex/Vit C/Folic Acid (Nephro-Sumit) [address] [facility] Last Admin: 07/17/18 08:47 Dose: 1 tab - Labs Labs: 07/17/18 06:00 07/17/18 06:00 - Constitutional Appears: Well, Non-toxic, No Acute Distress - Head Exam Head Exam: ATRAUMATIC, NORMOCEPHALIC - Eye Exam Eye Exam: EOMI, Normal appearance Pupil Exam: NORMAL ACCOMODATION - ENT Exam ENT Exam: Mucous Membranes Moist - Neck Exam Neck Exam: Normal Inspection - Extremities Exam Extremities Exam: Normal Inspection Additional comments: B/L lower extremity focused exam: Vascular: DP/PT non-palpable, CFT > 3 seconds to digits x9, TG warm to cool bilaterally, +1 edema appreciated to dorsal aspect of L foot in the first interspace Ortho: Tenderness to palpation of gouty nodules to L foot, MMT 4/5, Right HAV deformity bilaterally, rigid 3rd digit HT to left Neuro: Gross sensation intact, protective sensation diminished Derm: Ulceration noted to first interspace on the L at the site of previous second digit amputation. Measuring about 1.5 x 1 x .1 cm, 100% fibrotic base, decreasing in size, mild serous drainage, no purulence, no tunneling appreciated, no probe to bone, mild erythema appreciated. Interdigital maceration in other webspaces resolved. Elongated, dystrophic nails x9 - Neurological Exam Neurological Exam: Alert, Awake, Oriented x3 Assessment and Plan - Assessment and Plan (Free Text) Assessment: 72M patient seen and evaluated at bedside for L foot ulceration secondary to non-healing second digit amputation and PAD; ulceration site resolving at this time Plan: Patient seen and evaluated at bedside with Dr. Heller Afebrile, WBC 8.9, ESR 30 B/L LE US; no evidence of DVT L foot wound culture; Pseudomonas, Klebsiella ID consulted, reccs appreciated L foot x-rays taken; suspicious for OM at hallux, 1st met, 3rd and 4th mets. Diffuse degenerative joint disease throughout L foot, prior 2nd digit amp Lower extremity MRI ordered to rule out OM vs arthritic changes; findings suggestive of advanced gout arthritis. Skin ulcer adjacent to the 1st MTPJ. No evidence of abscess formation. No definitive evidence of OM Arterial US: FAHAD R 0.56, L 0.3; B/L distal SFA, politeal, and trifurcation; B/L tibial disease - Angio with Dr. Lujan. Severe left trifurcation, tibial, and pedal occlusive disease. Successful left popliteal artery drug-eluting balloon angioplasty. Ucertain with the extensive chronic distal occlusive disease whether ulceration will heal. Unfortunately revascularization options are limited. Continued wound care and possibly hyperbaric treatment may be useful. Local wound care; betadine and DSD Patient stable from podiatry stand point, pending d/c patient to f/u in Dr. Milton Heller's office within the week of discharge for continued wound care
--- NOTE | 2018-07-17 12:43 | CP.PCM.CON ---
History of Present Illness - History of Present Illness History of Present Illness: Nephrology Consultation Note: Assessment: Stable Acute Kidney Injury (N17.9) ? etiology. 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 Hypertension control with meds as ordered. Maintain hemodynamics stable. Avoid hypotension. Patient not on ACEI/ARB due to recent EMIL and hyperkalemia. consider to add veltassa as outpt Monitor Input/Output, daily weights and renal function with basic metabolic panel low K diet and medical management of hyperkalemia as needed continue with iron and MVI. PRBC as needed. dose of aransep 40 mcg (07.14.18) please obtain records from PCP about past kidney function results started weekly vit d PVR 161 ml. started flomax. consider outpt evaluation consider d/c cornejo will d/c IVF and n-acetylcysteine CHF optimization as per PMD/cardiology Dose meds/antibiotics for reduced GFR. Avoid fleets enema/magnesium based laxatives. Avoid nephrotoxins/NSAIDs/ iodinated contrast (unless needed emergent ly) Glycemic control Further work up/management as per primary team Thanks for allowing me to participate in care of your patient. Will follow patient with you. Please call if any Qs. had d/w team Dr Anjum Padron Office: [phone] Chief Complaint; left foot ulcer Reason for consult: Acute Kidney Injury HPI: Pt is a 72 M with hx of diabetes Mellitus (30 years), hypertension (years) ? PVD, gout presented with complaints of abnormal kidney fxn and left foot ulcer, being managed for EMIL and possible PVD Denies OTC/herbal meds or NSAIDs. pt says he used to take motrin in past but not these days. No recent iodinated contrast exposure. No obvious episodes of low BP. pt not aware about kidney disease in past ROS: Cardiovascular: No chest pain. Pulmonary: No shortness of breath Gastrointestinal: denies abdominal pain No nausea. No vomiting. Genitourinary: No pain while urinating. Denies blood in urine. sometimes feels hesitancy. now has cornejo All other negative except as mentioned in HPI Physical Examination: General Appearance: Comfortable, in no acute respiratory distress, co-operative . Vitals reviewed and noted as below Head; Atraumatic, normocephalic ENT: no ulcers no thrush. Tongue is midline. Oropharynx: no rash or ulcers. EYES: Pupils are equal, round and reactive to light accommodation. Eye muscles and extraocular movement intact. Sclera is anicteric. Neck; supple no lymphadenopathy, no thyromegaly or bruit Lungs: Normal respiratory rate/effort. Breath sounds bilateral equal and clear Heart: Normal rate. s1s2 normal. No rub or gallop. Extremities: no edema. No varicose veins. left foot great toe erythema. pedal pulses not palpable both feets Neurological: Patient is alert, awake and oriented to person, place and time. No focal deficit. Strength bilateral appropriate and equal Skin: Warm and dry. Normal turgor. No rash. Palpitation: Normal elasticity for age Abdomen: Abdomen is soft. Bowel sounds +. There is no abdominal tenderness, no guarding/rigidity no organomegaly Psych: lack insight and normal affect/mood MSK: no joint tenderness or swelling. Digits and nails normal, no deformity : kidney or bladder not palpable. has cornejo Labs/imaging reviewed. Past medical history, past surgical history, family history, social history, allergy reviewed and noted as below Family hx: no hx of CKD. Rest non-contributory Past Patient History - Past Social History Smoking Status: Unknown If Ever Smoked - CARDIAC Hx Cardiac Disorders: Yes Hx Hypercholesterolemia: Yes Hx Hypertension: Yes - PULMONARY Hx Respiratory Disorders: No - NEUROLOGICAL Hx Neurological Disorder: No - HEENT Hx HEENT Problems: Yes (eyeglasses) - RENAL Hx Chronic Kidney Disease: No - ENDOCRINE/METABOLIC Hx Diabetes Mellitus Type 1: Yes - HEMATOLOGICAL/ONCOLOGICAL Hx Blood Disorders: No - INTEGUMENTARY Hx Dermatological Problems: Yes Other/Comment: +1 edema left foot/ankle pitting, left foot 2nd toe amputated, clear drainage noted, foot red ,swollen, painful, thick toenails. r ft +1 ankle edema, bunyons and great toes crooked b/l - MUSCULOSKELETAL/RHEUMATOLOGICAL Hx Falls: Yes - GASTROINTESTINAL Hx Gastrointestinal Disorders: Yes (CONSTIPATION) - GENITOURINARY/GYNECOLOGICAL Hx Genitourinary Disorders: Yes (ACUTE KIDNEY INJURY) Hx Reproductive Disorders: No - PSYCHIATRIC Hx Substance Use: No - SURGICAL HISTORY Other/Comment: Hernia repair. Foot surgery Meds Allergies/Adverse Reactions: Allergies Allergy/AdvReac Type Severity Reaction Status Date / Time No Known Allergies Allergy Verified 07/16/18 20:00 - Medications Medications: Current Medications Acetaminophen (Tylenol 650 Mg Supp) 650 mg RC Q6H PRN PRN Reason: Fever >100.4 F Allopurinol (Zyloprim) 100 mg PO DAILY [facility] Last Admin: 07/17/18 09:50 Dose: 100 mg Aspirin (Ecotrin) 81 mg PO 0800 [facility] Last Admin: 07/17/18 08:47 Dose: 81 mg Atorvastatin Calcium (Lipitor) 20 mg PO DIN [facility] Cilostazol (Pletal) 50 mg PO BID [facility] Last Admin: 07/17/18 09:50 Dose: 50 mg Darbepoetin Arturo (Aranesp) 60 mcg SC QWK [facility] Docusate Sodium (Colace) 100 mg PO TID [facility] Last Admin: 07/17/18 09:50 Dose: 100 mg Ergocalciferol (Drisdol 50,000 Intl Units Cap) 1 cap PO Q7D [facility] Ferrous Sulfate (Feosol) 324 mg PO BID [facility] Last Admin: 07/17/18 09:50 Dose: 324 mg Heparin Sodium (Porcine) (Heparin) 5,000 units SC Q8 [facility]; Protocol Last Admin: 07/17/18 05:43 Dose: 5,000 units Cefepime HCl (Maxipime 2gm) 2 gm in 100 mls @ 100 mls/hr IVPB 0600 [facility]; Protocol Stop: 07/22/18 06:01 Last Admin: 07/17/18 06:55 Dose: 100 mls/hr Insulin Human Regular (Humulin R Med) 0 units SC ACHS [facility]; Protocol Last Admin: 07/17/18 12:17 Dose: 5 unit Metoprolol Tartrate (Lopressor) 25 mg PO 0800,1800 [facility] Last Admin: 07/17/18 08:47 Dose: 25 mg Ondansetron HCl (Zofran Inj) 4 mg IVP Q4H PRN PRN Reason: Nausea/Vomiting Pantoprazole Sodium (Protonix Ec Tab) 40 mg PO 0600 [facility] Last Admin: 07/17/18 05:44 Dose: 40 mg Tamsulosin HCl (Flomax) 0.4 mg PO 1830 [facility] Vitamin B Complex/Vit C/Folic Acid (Nephro-Sumit) 1 tab PO 0800 [facility] Last Admin: 07/17/18 08:47 Dose: 1 tab Results - Vital Signs Recent Vital Signs: Last Vital Signs Temp 98.3 F 07/16/18 22:12 Pulse 88 07/17/18 09:27 Resp 18 07/16/18 22:12 BP 106/58 L 07/17/18 08:47 Pulse Ox 98 07/17/18 09:27 - Labs Result Diagrams: 07/17/18 06:00 07/17/18 06:00 Labs: Laboratory Results - last 24 hr 07/17/18 07/17/18 07/17/18 06:00 06:00 10:59 WBC 8.8 RBC 2.67 L Hgb 8.8 L Hct 27.2 L MCV 101.9 MCH 33.0 MCHC 32.4 RDW 15.6 H Plt Count 258 MPV 10.1 Gran % 69.3 H Lymph % (Auto) 12.1 L [place] % (Auto) 12.1 H Eos % (Auto) 6.4 H Baso % (Auto) 0.1 Gran # 6.12 Lymph # (Auto) 1.1 L [place] # (Auto) 1.1 H Eos # (Auto) 0.6 Baso # (Auto) 0.01 Sodium 139 Potassium 4.0 Chloride 104 Carbon Dioxide 26 Anion Gap 12 BUN 29 H Creatinine 1.9 H Est GFR ( Amer) 42 Est GFR (Non-Af Amer) 35 POC Glucose (mg/dL) 252 H Random Glucose 153 H Calcium 8.4 Phosphorus 2.7 Magnesium 2.0 Total Bilirubin 0.8 Direct Bilirubin 0.2 AST 32 ALT 29 Alkaline Phosphatase 58 Total Protein 6.3 Albumin 3.5 Globulin 2.8 Albumin/Globulin Ratio 1.3
--- NOTE | 2018-07-17 17:21 | CON ---
DATE: 07/17/2018 HISTORY OF PRESENT ILLNESS: [facility] Dr. Milton Murrell as a direct sales consultant; however, the patient stated he does not need hydrodynamics professor and refused to allow me to see to evaluate him. The patient appeared fully oriented and I respected his wish and I informed the attending nurse to document that in our notes. Rishabh Jimenez MD
--- NOTE | 2018-07-17 21:19 | CON ---
DATE: 07/17/2018 The patient was seen earlier this morning in room 304. CHIEF COMPLAINT: The patient states he is complaining of weakness from several days. HISTORY OF PRESENT ILLNESS: This is a 72-year-old male who was seen in the acute care with past medical history significant for diabetes mellitus, gout, left lower extremity digit amputation in . He was found to have an elevated creatinine and was admitted to the acute care and now transferred to transitional care and was given a diagnosis of a left great toe soft tissue infection and ulceration and infection, most likely osteomyelitis, now in the transitional care for continuation of antibiotics and Infectious Disease consultation requested. The patient has no nausea or vomiting. His general compliant is weakness. He is awake and responsive. No fevers, no chills. No chest pain, no shortness of breath. No abdominal pain, diarrhea or constipation. No dysuria. PAST MEDICAL HISTORY: Significant for diabetes mellitus, gout, hypertension, and the patient also with a history of arthritis in addition to the diabetes, gout, and hypertension. PAST SURGICAL HISTORY: Significant for digital amputation in and hernia surgery. ALLERGIES: THE PATIENT HAS NO KNOWN ALLERGIES TO ANY MEDICATIONS. MEDICATIONS AT HOME: Reviewed and noted. REVIEW OF SYSTEMS: A full 14-point review of systems is performed. PHYSICAL EXAMINATION GENERAL: The patient is in bed, appearing older than his stated age, weak. VITAL SIGNS: Temperature of 98, T-max is 99.4, heart rate of 104, and there was respiratory rate of 18 and blood pressure of 106/58. The patient's O2 saturation is 98% saturation on room air and his BMI is 24. HEENT: Unremarkable. NECK: Supple. LUNGS: Decreased breath sounds. HEART: Normal S1 and S2. ABDOMEN: Soft and nontender. No organomegaly, no rebound, no guarding, no masses. EXTREMITIES: Examination of foot is as described by Podiatry. The patient had a surgical procedure on 07/15/[address] Briana Lujan and an angiogram. LABORATORY EXAMINATION: Reveals the white count of 8.8, hemoglobin of 8.8, platelets of 258. Differential is noted. Coagulation is reviewed, INR of 1. Chemistry reveals the creatinine is 1.9, and urinalysis is unremarkable. Microbiology reveals the patient's blood cultures are coag-negative staph one bottle and left foot culture has Pseudomonas and Klebsiella, which is sensitive to cefepime, Cipro, meropenem, piperacillin/tazobactam. ASSESSMENT AND PLAN: This is a 72-year-old male who was seen earlier today in room 304, who initially had an angiogram done on 07/15/2018 and has a left foot cellulitis with Pseudomonas and Klebsiella, and had an MRI of the foot on 07/14/2018, which was suggestive of advanced gout arthritis, no evidence of osteomyelitis, and the patient with acute kidney injury which is improving, diabetes mellitus, hypertension and gout, and currently on cefepime. Would complete a short course of cefepime or cellulitis. Review of orders confirms the cefepime ordered to be active, and we will follow with you. Discussed with PMD. Tai Landaverde MD
[2018-07-18] MEDS: Cefepime IV 2 gm in NS 2 GM/100 ML BAG IVPB SCH (05:05)
[2018-07-18] MEDS: Pantoprazole 40 mg EC Tab PO SCH (05:05)
[2018-07-18] MEDS ORDERED: Cefepime IV 2 gm in NS 2 GM/100 ML BAG IVPB SCH (06:00)
[2018-07-18] MEDS: Insulin Reg-MEDIUM-Coverage SC SCH ×4 (07:25→21:38)
[2018-07-18] MEDS: Multivitamin Vitamin B Complex (Nephro-Vite) Tab PO SCH (08:09)
--- NOTE | 2018-07-18 08:21 | CP.PCM.PN ---
Subjective - Date & Time of Evaluation Date of Evaluation: 07/18/18 Time of Evaluation: 08:00 - Subjective Subjective: (covering for Dr. Ling) Patient is seen this morning. He is sitting up in the bed. He says he is walking with the walker. Objective - Vital Signs/Intake and Output Vital Signs (last 24 hours): Temp Pulse Resp BP Pulse Ox 98.3 F 88 18 101/51 L 98 07/16/18 22:12 07/17/18 09:27 07/16/18 22:12 07/18/18 08:10 07/17/18 09:27 Intake and Output: 07/18/18 07/18/18 06:59 18:59 Intake Total 340 Output Total 725 Balance -385 - Medications Medications: Current Medications Acetaminophen (Tylenol 650 Mg Supp) 650 mg RC Q6H PRN PRN Reason: Fever >100.4 F Allopurinol (Zyloprim) 100 mg PO DAILY [facility] Last Admin: 07/17/18 09:50 Dose: 100 mg Aspirin (Ecotrin) 81 mg PO 0800 [facility] Last Admin: 07/18/18 08:09 Dose: 81 mg Atorvastatin Calcium (Lipitor) 20 mg PO DIN [facility] Last Admin: 07/17/18 17:40 Dose: 20 mg Cilostazol (Pletal) 50 mg PO BID [facility] Last Admin: 07/17/18 17:41 Dose: 50 mg Darbepoetin Arturo (Aranesp) 60 mcg SC QWK [facility] Docusate Sodium (Colace) 100 mg PO TID [facility] Last Admin: 07/17/18 17:40 Dose: 100 mg Ergocalciferol (Drisdol 50,000 Intl Units Cap) 1 cap PO Q7D [facility] Ferrous Sulfate (Feosol) 324 mg PO BID [facility] Last Admin: 07/17/18 17:40 Dose: 324 mg Heparin Sodium (Porcine) (Heparin) 5,000 units SC Q8 [facility]; Protocol Last Admin: 07/18/18 05:04 Dose: 5,000 units Insulin Human Regular (Humulin R Med) 0 units SC ACHS [facility]; Protocol Last Admin: 07/18/18 07:25 Dose: 1 unit Metoprolol Tartrate (Lopressor) 25 mg PO 0800,1800 [facility] Last Admin: 07/18/18 08:10 Dose: Not Given Ondansetron HCl (Zofran Inj) 4 mg IVP Q4H PRN PRN Reason: Nausea/Vomiting Pantoprazole Sodium (Protonix Ec Tab) 40 mg PO 0600 [facility] Last Admin: 07/18/18 05:05 Dose: 40 mg Tamsulosin HCl (Flomax) 0.4 mg PO 1830 [facility] Last Admin: 07/17/18 17:42 Dose: 0.4 mg Vitamin B Complex/Vit C/Folic Acid (Nephro-Sumit) 1 tab PO 0800 [facility] Last Admin: 07/18/18 08:09 Dose: 1 tab - Labs Labs: 07/17/18 06:00 07/17/18 06:00 - Constitutional Appears: No Acute Distress - Head Exam Head Exam: ATRAUMATIC, NORMOCEPHALIC - Respiratory Exam Respiratory Exam: Clear to Ausculation Bilateral, NORMAL BREATHING PATTERN - Cardiovascular Exam Cardiovascular Exam: REGULAR RHYTHM, +S1, +S2 - GI/Abdominal Exam GI & Abdominal Exam: Soft, Normal Bowel Sounds. absent: Tenderness - Neurological Exam Neurological Exam: Alert, Awake, Oriented x3 Assessment and Plan - Assessment and Plan (Free Text) Assessment: Left foot cellulitis EMIL HTN PVD DM Anemia Plan: continue wound care as per podiatry continue antibiotics as per infectious disease continue PT awaiting today's labs - continue to monitor creatinine and hemoglobin
[2018-07-18 08:23] LABS: BASO # 0.02 K/mm3 (0.0-2.0); BASO % 0.2 % (0.0-3.0); EOS % 11.3 % (1.5-5.0); GRAN # 5.97 (1.4-6.5); GRAN % 66.7 % (50.0-68.0); HEMOGLOBIN 9.4 g/dL (14.0-18.0); LYMPH # 1.2 (1.2-3.4); LYMPH % 13.5 % (22.0-35.0); MEAN CELL VOLUME 102.8 fl (80.0-105.0); MEAN CORPUSCULAR HGB CONC 32.1 g/dl (31.0-37.0); MEAN PLATELET VOLUME 10.1 fl (7.0-11.0); MONO # 0.7 (0.1-0.6); MONO % 8.3 % (1.0-6.0); RBC 2.85 10^6/uL (3.5-6.1); RED CELL DISTRIBUTION WIDTH 15.5 % (11.5-14.5)
[2018-07-18 08:35] LABS: CALCIUM 9.2 mg/dL (8.4-10.5)
[2018-07-18] MEDS: Cilostazol 50 mg Tab UD PO SCH ×2 (09:40→17:05)
[2018-07-18] MEDS ORDERED: Cefepime 1gm in NS 100ml 1 GM/100 ML BAG IVPB SCH (11:15)
--- NOTE | 2018-07-18 11:28 | CP.PCM.PN ---
Subjective - Date & Time of Evaluation Date of Evaluation: 07/18/18 Time of Evaluation: 11:27 - Subjective Subjective: Nephrology Consultation Note: Assessment: Stable Acute Kidney Injury (N17.9) ? etiology. 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 Hypertension control with meds as ordered. Maintain hemodynamics stable. Avoid hypotension. Patient not on ACEI/ARB due to recent EMIL and hyperkalemia. consider to add veltassa as outpt Monitor Input/Output, daily weights and renal function with basic metabolic panel low K diet and medical management of hyperkalemia as needed continue with iron and MVI. PRBC as needed. dose of aransep 40 mcg (07.14.18), next on 07/21/18 please obtain records from PCP about past kidney function results started weekly vit d PVR 161 ml. started flomax. consider outpt evaluation CHF optimization as per PMD/cardiology Dose meds/antibiotics for reduced GFR. Avoid fleets enema/magnesium based laxatives. Avoid nephrotoxins/NSAIDs/ iodinated contrast (unless needed emergently) Glycemic control Further work up/management as per primary team Thanks for allowing me to participate in care of your patient. Will follow patient with you. Please call if any Qs. had d/w team Dr Anjum Padorn Office: [phone] Chief Complaint; left foot ulcer Reason for consult: Acute Kidney Injury HPI: Pt is a 72 M with hx of diabetes Mellitus (30 years), hypertension (years) ? PVD, gout presented with complaints of abnormal kidney fxn and left foot ulcer, being managed for EMIL and possible PVD Denies OTC/herbal meds or NSAIDs. pt says he used to take motrin in past but not these days. No recent iodinated contrast exposure. No obvious episodes of low BP. pt not aware about kidney disease in past ROS: Cardiovascular: No chest pain. Pulmonary: No shortness of breath Gastrointestinal: denies abdominal pain No nausea. No vomiting. Genitourinary: No pain while urinating. Denies blood in urine. sometimes feels hesitancy. All other negative except as mentioned in HPI Physical Examination: General Appearance: Comfortable, in no acute respiratory distress, co-operative . Vitals reviewed and noted as below Head; Atraumatic, normocephalic ENT: no ulcers no thrush. Tongue is midline. Oropharynx: no rash or ulcers. EYES: Pupils are equal, round and reactive to light accommodation. Eye muscles and extraocular movement intact. Sclera is anicteric. Neck; supple no lymphadenopathy, no thyromegaly or bruit Lungs: Normal respiratory rate/effort. Breath sounds bilateral equal and clear Heart: Normal rate. s1s2 normal. No rub or gallop. Extremities: no edema. No varicose veins. left foot great toe erythema. pedal pulses not palpable both feets Neurological: Patient is alert, awake and oriented to person, place and time. No focal deficit. Strength bilateral appropriate and equal Skin: Warm and dry. Normal turgor. No rash. Palpitation: Normal elasticity for age Abdomen: Abdomen is soft. Bowel sounds +. There is no abdominal tenderness, no guarding/rigidity no organomegaly Psych: lack insight and normal affect/mood MSK: no joint tenderness or swelling. Digits and nails normal, no deformity : kidney or bladder not palpable. Labs/imaging reviewed. Past medical history, past surgical history, family history, social history, allergy reviewed and noted as below Family hx: no hx of CKD. Rest non-contributory Objective - Vital Signs/Intake and Output Vital Signs (last 24 hours): Temp Pulse Resp BP Pulse Ox 98.2 F 86 18 103/68 96 07/18/18 10:00 07/18/18 10:00 07/18/18 10:00 07/18/18 10:00 07/18/18 10:00 Intake and Output: 07/18/18 07/18/18 06:59 18:59 Intake Total 340 Output Total 725 Balance -385 - Medications Medications: Current Medications Acetaminophen (Tylenol 650 Mg Supp) 650 mg RC Q6H PRN PRN Reason: Fever >100.4 F Allopurinol (Zyloprim) 100 mg PO DAILY [facility] Last Admin: 12/23/18 09:40 Dose: 100 mg Aspirin (Ecotrin) 81 mg PO 0800 [facility] Last Admin: 07/18/18 08:09 Dose: 81 mg Atorvastatin Calcium (Lipitor) 20 mg PO DIN [facility] Last Admin: 07/17/18 17:40 Dose: 20 mg Cilostazol (Pletal) 50 mg PO BID [facility] Last Admin: 07/18/18 09:40 Dose: 50 mg Darbepoetin Arturo (Aranesp) 60 mcg SC QWK [facility] Docusate Sodium (Colace) 100 mg PO TID [facility] Last Admin: 07/18/18 09:39 Dose: 100 mg Ergocalciferol (Drisdol 50,000 Intl Units Cap) 1 cap PO Q7D [facility] Ferrous Sulfate (Feosol) 324 mg PO BID [facility] Last Admin: 07/18/18 09:39 Dose: 324 mg Heparin Sodium (Porcine) (Heparin) 5,000 units SC Q8 [facility]; Protocol Last Admin: 07/18/18 05:04 Dose: 5,000 units Cefepime HCl (Maxipime 1gm) 1 gm in 100 mls @ 100 mls/hr IVPB 0600,1800 [facility]; Protocol Stop: 07/26/18 18:01 Insulin Human Regular (Humulin R Med) 0 units SC ACHS [facility]; Protocol Last Admin: 07/18/18 07:25 Dose: 1 unit Metoprolol Tartrate (Lopressor) 25 mg PO 0800,1800 [facility] Last Admin: 07/18/18 08:10 Dose: Not Given Ondansetron HCl (Zofran Inj) 4 mg IVP Q4H PRN PRN Reason: Nausea/Vomiting Pantoprazole Sodium (Protonix Ec Tab) 40 mg PO 0600 [facility] Last Admin: 07/18/18 05:05 Dose: 40 mg Tamsulosin HCl (Flomax) 0.4 mg PO 1830 [facility] Last Admin: 07/17/18 17:42 Dose: 0.4 mg Vitamin B Complex/Vit C/Folic Acid (Nephro-Sumti) 1 tab PO 0800 [facility] Last Admin: 07/18/18 08:09 Dose: 1 tab - Labs Labs: 07/18/18 07:30 07/18/18 07:30
--- NOTE | 2018-07-18 12:48 | CP.PCM.PN ---
Subjective - Date & Time of Evaluation Date of Evaluation: 07/18/18 Time of Evaluation: 12:48 - Subjective Subjective: Podiatry Progress Note for Dr. Heller 72M patient seen and evaluated at bedside for L foot ulceration secondary to non-healing second digit amputation and PAD. Patient resting comfortably and in NAD. Admits to minimal pain surrounding the left second digit. Denies any other pedal complaints at this time. Denies N/V/F/SOB/CP. Objective - Vital Signs/Intake and Output Vital Signs (last 24 hours): Temp Pulse Resp BP Pulse Ox 98.2 F 86 18 103/68 96 07/18/18 10:00 07/18/18 10:00 07/18/18 10:00 07/18/18 10:00 07/18/18 10:00 Intake and Output: 07/18/18 07/18/18 06:59 18:59 Intake Total 340 Output Total 725 Balance -385 - Medications Medications: Current Medications Acetaminophen (Tylenol 650 Mg Supp) 650 mg RC Q6H PRN PRN Reason: Fever >100.4 F Allopurinol (Zyloprim) 100 mg PO DAILY [facility] Last Admin: 07/18/18 09:40 Dose: 100 mg Aspirin (Ecotrin) 81 mg PO 0800 [facility] Last Admin: 07/18/18 08:09 Dose: 81 mg Atorvastatin Calcium (Lipitor) 20 mg PO DIN [facility] Last Admin: 07/17/18 17:40 Dose: 20 mg Cilostazol (Pletal) 50 mg PO BID [facility] Last Admin: 07/18/18 09:40 Dose: 50 mg Darbepoetin Arturo (Aranesp) 60 mcg SC QWK [facility] Docusate Sodium (Colace) 100 mg PO TID [facility] Last Admin: 07/18/18 09:39 Dose: 100 mg Ergocalciferol (Drisdol 50,000 Intl Units Cap) 1 cap PO Q7D [facility] Ferrous Sulfate (Feosol) 324 mg PO BID [facility] Last Admin: 07/18/18 09:39 Dose: 324 mg Heparin Sodium (Porcine) (Heparin) 5,000 units SC Q8 [facility]; Protocol Last Admin: 07/18/18 05:04 Dose: 5,000 units Cefepime HCl (Maxipime 1gm) 1 gm in 100 mls @ 100 mls/hr IVPB 0600,1800 [facility]; Protocol Stop: 07/26/18 18:01 Insulin Human Regular (Humulin R Med) 0 units SC ACHS [facility]; Protocol Last Admin: 07/18/18 11:56 Dose: 3 unit Metoprolol Tartrate (Lopressor) 25 mg PO 0800,1800 [facility] Last Admin: 07/18/18 08:10 Dose: Not Given Ondansetron HCl (Zofran Inj) 4 mg IVP Q4H PRN PRN Reason: Nausea/Vomiting Pantoprazole Sodium (Protonix Ec Tab) 40 mg PO 0600 [facility] Last Admin: 07/18/18 05:05 Dose: 40 mg Tamsulosin HCl (Flomax) 0.4 mg PO 1830 [facility] Last Admin: 07/17/18 17:42 Dose: 0.4 mg Vitamin B Complex/Vit C/Folic Acid (Nephro-Sumit) 1 tab PO 0800 [facility] Last Admin: 07/18/18 08:09 Dose: 1 tab - Labs Labs: 07/18/18 07:30 07/18/18 07:30 - Constitutional Appears: Well, Non-toxic - Head Exam Head Exam: ATRAUMATIC, NORMOCEPHALIC - Eye Exam Eye Exam: Normal appearance Pupil Exam: NORMAL ACCOMODATION - ENT Exam ENT Exam: Mucous Membranes Moist - Respiratory Exam Respiratory Exam: Clear to Ausculation Bilateral, NORMAL BREATHING PATTERN - Extremities Exam Additional comments: B/L lower extremity focused exam: Vascular: DP/PT non-palpable, CFT > 3 seconds to digits x9, TG warm to cool bilaterally, +1 edema appreciated to dorsal aspect of L foot in the first interspace Ortho: Tenderness to palpation of gouty nodules to L foot, MMT 4/5, Right HAV deformity bilaterally, rigid 3rd digit HT to left Neuro: Gross sensation intact, protective sensation diminished Derm: Ulceration noted to first interspace on the L at the site of previous second digit amputation. Measuring about 1.0 x 0.5 x .1 cm, 100% fibrotic base, decreasing in size, mild serous drainage, no purulence, no tunneling appreciated, no probe to bone, mild erythema appreciated. Interdigital maceration in other webspaces resolved. Elongated, dystrophic nails x9 Assessment and Plan - Assessment and Plan (Free Text) Assessment: 72M patient seen and evaluated at bedside for L foot ulceration secondary to non-healing second digit amputation and PAD; ulceration site resolving at this time Plan: Patient seen and evaluated at bedside with Dr. Heller Afebrile, WBC 9.0 B/L LE US; no evidence of DVT L foot wound culture; Pseudomonas, Klebsiella ID consulted, reccs appreciated L foot x-rays taken; suspicious for OM at hallux, 1st met, 3rd and 4th mets. Diffuse degenerative joint disease throughout L foot, prior 2nd digit amp Lower extremity MRI ordered to rule out OM vs arthritic changes; findings suggestive of advanced gout arthritis. Skin ulcer adjacent to the 1st MTPJ. No evidence of abscess formation. No definitive evidence of OM Arterial US: FAHAD R 0.56, L 0.3; B/L distal SFA, politeal, and trifurcation; B/L tibial disease - Angio with Dr. Lujan. Severe left trifurcation, tibial, and pedal occlusive disease. Successful left popliteal artery drug-eluting balloon angioplasty. Ucertain with the extensive chronic distal occlusive disease whether ulceration will heal. Unfortunately revascularization options are limited. Continued wound care and possibly hyperbaric treatment may be useful. Local wound care; betadine and DSD Patient stable from podiatry stand point, pending d/c patient to f/u in Dr. Milton Heller's office within the week of discharge for continued wound care
--- NOTE | 2018-07-18 15:27 | PN ---
DATE: 07/18/2018 SUBJECTIVE: The patient seen in bed, in no acute distress. PHYSICAL EXAMINATION: VITAL SIGNS: Temperature is 98, blood pressure is 103/60, respiratory rate of 18 and heart rate of 86. HEENT: Unremarkable. NECK: Supple. LUNGS: Decreased breath sounds. HEART: Normal S1 and S2. ABDOMEN: Soft. LABORATORY EXAMINATION: Reveals white count of 9, hemoglobin of 9, platelets of 277. Chemistries are noted. Microbiology exam is noted. ASSESSMENT AND PLAN: This is a 72-year-old man seen earlier today in room 304 with history of diabetes, gout, lower extremity digit amputation, found to have an elevated creatinine, admitted in acute care, transferred to transitional care at this point and gouty arthritis on MRI with no evidence of osteomyelitis and the patient with acute kidney injury . Currently the patient was on cefepime. We will continue short course of cefepime. We will follow with you. Tai Landaverde MD
[2018-07-18] MEDS: Cefepime 1gm in NS 100ml 1 GM/100 ML BAG IVPB SCH (17:03)
[2018-07-19] MEDS: Pantoprazole 40 mg EC Tab PO SCH (05:21)
[2018-07-19] MEDS: Cefepime 1gm in NS 100ml 1 GM/100 ML BAG IVPB SCH ×2 (05:21→17:43)
[2018-07-19] MEDS: Insulin Reg-MEDIUM-Coverage SC SCH ×4 (06:53→22:00)
[2018-07-19 07:13] LABS: CALCIUM 8.9 mg/dL (8.4-10.5)
[2018-07-19] MEDS: Multivitamin Vitamin B Complex (Nephro-Vite) Tab PO SCH (08:02)
--- NOTE | 2018-07-19 08:09 | CP.PCM.PN ---
Subjective - Date & Time of Evaluation Date of Evaluation: 07/19/18 Time of Evaluation: 07:45 - Subjective Subjective: (covering for Dr. Ling) Patient is seen this morning. He says he has no new complaints. He complains of pain in his toe when walking. Objective - Vital Signs/Intake and Output Vital Signs (last 24 hours): Temp Pulse Resp BP Pulse Ox 98.1 F 91 H 18 95/58 L 97 07/18/18 16:00 07/18/18 16:00 07/18/18 16:00 07/19/18 08:01 07/18/18 16:00 - Medications Medications: Current Medications Acetaminophen (Tylenol 650 Mg Supp) 650 mg RC Q6H PRN PRN Reason: Fever >100.4 F Allopurinol (Zyloprim) 100 mg PO DAILY [facility] Last Admin: 07/18/18 09:40 Dose: 100 mg Aspirin (Ecotrin) 81 mg PO 0800 [facility] Last Admin: 07/19/18 08:01 Dose: 81 mg Atorvastatin Calcium (Lipitor) 20 mg PO DIN [facility] Last Admin: 07/18/18 17:02 Dose: 20 mg Cilostazol (Pletal) 50 mg PO BID [facility] Last Admin: 07/18/18 17:05 Dose: 50 mg Darbepoetin Arturo (Aranesp) 60 mcg SC QWK [facility] Docusate Sodium (Colace) 100 mg PO TID [facility] Last Admin: 07/18/18 17:02 Dose: 100 mg Ergocalciferol (Drisdol 50,000 Intl Units Cap) 1 cap PO Q7D [facility] Ferrous Sulfate (Feosol) 324 mg PO BID [facility] Last Admin: 07/18/18 17:02 Dose: 324 mg Heparin Sodium (Porcine) (Heparin) 5,000 units SC Q8 [facility]; Protocol Last Admin: 07/19/18 05:20 Dose: 5,000 units Cefepime HCl (Maxipime 1gm) 1 gm in 100 mls @ 100 mls/hr IVPB 0600,1800 [facility]; Protocol Stop: 07/26/18 18:01 Last Admin: 07/19/18 05:21 Dose: 100 mls/hr Insulin Human Regular (Humulin R Med) 0 units SC ACHS [facility]; Protocol Last Admin: 07/19/18 06:53 Dose: 1 unit Metoprolol Tartrate (Lopressor) 25 mg PO 0800,1800 [facility] Last Admin: 07/19/18 08:01 Dose: Not Given Ondansetron HCl (Zofran Inj) 4 mg IVP Q4H PRN PRN Reason: Nausea/Vomiting Pantoprazole Sodium (Protonix Ec Tab) 40 mg PO 0600 [facility] Last Admin: 07/19/18 05:21 Dose: 40 mg Tamsulosin HCl (Flomax) 0.4 mg PO 1830 [facility] Last Admin: 07/18/18 18:00 Dose: 0.4 mg Vitamin B Complex/Vit C/Folic Acid (Nephro-Sumit) 1 tab PO 0800 [facility] Last Admin: 07/19/18 08:02 Dose: 1 tab - Labs Labs: 07/18/18 07:30 07/19/18 06:30 - Constitutional Appears: No Acute Distress - Head Exam Head Exam: ATRAUMATIC, NORMOCEPHALIC - Respiratory Exam Respiratory Exam: Clear to Ausculation Bilateral, NORMAL BREATHING PATTERN - Cardiovascular Exam Cardiovascular Exam: REGULAR RHYTHM, +S1, +S2 - GI/Abdominal Exam GI & Abdominal Exam: Soft, Normal Bowel Sounds. absent: Tenderness - Neurological Exam Neurological Exam: Alert, Awake, Oriented x3 Assessment and Plan - Assessment and Plan (Free Text) Assessment: Left foot cellulitis PVD s/p balloon angioplasty HTN Diabetes Plan: continue physical therapy continue IV Maxipime as per infectious disease continue pletal for peripheral vascular disease
[2018-07-19] MEDS: Cilostazol 50 mg Tab UD PO SCH ×2 (09:24→17:44)
--- NOTE | 2018-07-19 14:06 | CP.PCM.PN ---
Subjective - Date & Time of Evaluation Date of Evaluation: 07/19/18 Time of Evaluation: 14:05 - Subjective Subjective: Nephrology Consultation Note: Assessment: Stable Acute Kidney Injury (N17.9) ? etiology. 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 Hypertension control with meds as ordered. Maintain hemodynamics stable. Avoid hypotension. Patient not on ACEI/ARB hence will add low dose acei. consider to add veltassa as outpt Monitor Input/Output, daily weights and renal function with basic metabolic panel low K diet and medical management of hyperkalemia as needed continue with iron and MVI. PRBC as needed. dose of aransep 40 mcg (07.14.18), next on 07/21/18 please obtain records from PCP about past kidney function results started weekly vit d PVR 161 ml. started flomax. consider outpt evaluation CHF optimization as per PMD/cardiology Dose meds/antibiotics for reduced GFR. Avoid fleets enema/magnesium based laxatives. Avoid nephrotoxins/NSAIDs/ iodinated contrast (unless needed emergently) Glycemic control Further work up/management as per primary team Thanks for allowing me to participate in care of your patient. Will follow patient with you. Please call if any Qs. had d/w team Dr Anjum Padron Office: [phone] Chief Complaint; left foot ulcer Reason for consult: Acute Kidney Injury HPI: Pt is a 72 M with hx of diabetes Mellitus (30 years), hypertension (years) ? PVD, gout presented with complaints of abnormal kidney fxn and left foot ulcer, being managed for EMIL and possible PVD Denies OTC/herbal meds or NSAIDs. pt says he used to take motrin in past but not these days. No recent iodinated contrast exposure. No obvious episodes of low BP. pt not aware about kidney disease in past ROS: Cardiovascular: No chest pain. Pulmonary: No shortness of breath Gastrointestinal: denies abdominal pain No nausea. No vomiting. Genitourinary: No pain while urinating. Denies blood in urine. sometimes feels hesitancy. All other negative except as mentioned in HPI Physical Examination: General Appearance: Comfortable, in no acute respiratory distress, co-operative . Vitals reviewed and noted as below Head; Atraumatic, normocephalic ENT: no ulcers no thrush. Tongue is midline. Oropharynx: no rash or ulcers. EYES: Pupils are equal, round and reactive to light accommodation. Eye muscles and extraocular movement intact. Sclera is anicteric. Neck; supple no lymphadenopathy, no thyromegaly or bruit Lungs: Normal respiratory rate/effort. Breath sounds bilateral equal and clear Heart: Normal rate. s1s2 normal. No rub or gallop. Extremities: no edema. No varicose veins. left foot great toe erythema. pedal pulses not palpable both feets Neurological: Patient is alert, awake and oriented to person, place and time. No focal deficit. Strength bilateral appropriate and equal Skin: Warm and dry. Normal turgor. No rash. Palpitation: Normal elasticity for age Abdomen: Abdomen is soft. Bowel sounds +. There is no abdominal tenderness, no g uarding/rigidity no organomegaly Psych: lack insight and normal affect/mood MSK: no joint tenderness or swelling. Digits and nails normal, no deformity : kidney or bladder not palpable. Labs/imaging reviewed. Past medical history, past surgical history, family history, social history, allergy reviewed and noted as below Family hx: no hx of CKD. Rest non-contributory Objective - Vital Signs/Intake and Output Vital Signs (last 24 hours): Temp Pulse Resp BP Pulse Ox 98.8 F 98 H 18 121/77 96 07/19/18 10:00 07/19/18 10:00 07/19/18 10:00 07/19/18 10:00 07/19/18 10:00 - Medications Medications: Current Medications Acetaminophen (Tylenol 650 Mg Supp) 650 mg RC Q6H PRN PRN Reason: Fever >100.4 F Allopurinol (Zyloprim) 100 mg PO DAILY [facility] Last Admin: 07/19/18 09:25 Dose: 100 mg Aspirin (Ecotrin) 81 mg PO 0800 [facility] Last Admin: 07/19/18 08:01 Dose: 81 mg Atorvastatin Calcium (Lipitor) 20 mg PO DIN [facility] Last Admin: 07/18/18 17:02 Dose: 20 mg Cilostazol (Pletal) 50 mg PO BID [facility] Last Admin: 07/19/18 09:24 Dose: 50 mg Darbepoetin Arturo (Aranesp) 60 mcg SC QWK [facility] Docusate Sodium (Colace) 100 mg PO TID [facility] Last Admin: 07/19/18 13:12 Dose: 100 mg Ergocalciferol (Drisdol 50,000 Intl Units Cap) 1 cap PO Q7D [facility] Ferrous Sulfate (Feosol) 324 mg PO BID [facility] Last Admin: 07/19/18 09:24 Dose: 324 mg Heparin Sodium (Porcine) (Heparin) 5,000 units SC Q8 [facility]; Protocol Last Admin: 07/19/18 13:12 Dose: 5,000 units Cefepime HCl (Maxipime 1gm) 1 gm in 100 mls @ 100 mls/hr IVPB 0600,1800 [facility]; Protocol Stop: 07/26/18 18:01 Last Admin: 07/19/18 05:21 Dose: 100 mls/hr Insulin Human Regular (Humulin R Med) 0 units SC ACHS [facility]; Protocol Last Admin: 07/19/18 12:23 Dose: 5 unit Lisinopril (Zestril) 2.5 mg PO DAILY [facility] Metoprolol Tartrate (Lopressor) 25 mg PO 0800,1800 [facility] Last Admin: 07/19/18 08:01 Dose: Not Given Ondansetron HCl (Zofran Inj) 4 mg IVP Q4H PRN PRN Reason: Nausea/Vomiting Pantoprazole Sodium (Protonix Ec Tab) 40 mg PO 0600 [facility] Last Admin: 07/19/18 05:21 Dose: 40 mg Tamsulosin HCl (Flomax) 0.4 mg PO 1830 [facility] Last Admin: 07/18/18 18:00 Dose: 0.4 mg Vitamin B Complex/Vit C/Folic Acid (Nephro-Sumit) 1 tab PO 0800 [facility] Last Admin: 07/19/18 08:02 Dose: 1 tab - Labs Labs: 07/18/18 07:30 07/19/18 06:30
--- NOTE | 2018-07-19 18:06 | PN ---
DATE: 07/19/2018 SUBJECTIVE: The patient is seen in bed in no acute distress , nontoxic. PHYSICAL EXAMINATION: VITAL SIGNS: Temperature is 98, blood pressure is 95/50, respiratory of 18, heart rate of 91. HEENT: Unremarkable. NECK: Supple. CARDIOPULMONARY: Normal S1, S2. LUNGS: Have decreased breath sounds. ABDOMEN: Soft, nontender. LABORATORY DATA: Laboratory examination reveals a white count of 9, hemoglobin of 9.4. Chemistries were noted. Microbiology is noted. ASSESSMENT AND PLAN: This is a 72-year-old male who was seen earlier today in room 304 with history of diabetes mellitus, gout, lower extremity digit amputation, found to have an elevated creatinine, admitted with the acute care, transferred to transitional care and gouty arthritis and MRI. No evidence of osteomyelitis and acute kidney injury. We will complete a short course of cefepime. Tai Landaverde MD
[2018-07-20] MEDS: Cefepime 1gm in NS 100ml 1 GM/100 ML BAG IVPB SCH (05:15)
[2018-07-20] MEDS: Pantoprazole 40 mg EC Tab PO SCH (05:16)
[2018-07-20] MEDS: Insulin Reg-MEDIUM-Coverage SC SCH ×4 (06:55→22:00)
[2018-07-20 07:32] LABS: CALCIUM 9.4 mg/dL (8.4-10.5)
[2018-07-20] MEDS: Multivitamin Vitamin B Complex (Nephro-Vite) Tab PO SCH (08:03)
[2018-07-20] MEDS: Cilostazol 50 mg Tab UD PO SCH ×2 (09:38→17:07)
--- NOTE | 2018-07-20 13:46 | PN ---
DATE: 07/20/2018 SUBJECTIVE: The patient seen in Transitional Care, no acute distress, nontoxic. PHYSICAL EXAMINATION: VITAL SIGNS: Temperature is 97, blood pressure is 109/60, respiratory rate of 18, heart rate of 91. HEENT: Unremarkable. NECK: Supple. LUNGS: Have decreased breath sounds. HEART: Normal S1, S2. ABDOMEN: Soft. LABORATORY EXAMINATION: Reveals a white count of 9000, hemoglobin of 9, platelets of 277. BUN of 41, creatinine of 1.9. Microbiology is noted. ASSESSMENT/PLAN: A 72-year-old male who has diabetes mellitus, gout, lower extremity. Acute care transferred to Transitional Care with gouty arthritis, no evidence of osteo on the MRI. We will discontinue the cefepime. The patient has had adequate therapy and the patient has had adequate first course of antibiotics. We will discontinue the cefepime. No further antibiotics needed at this point, local wound care. Tai Landaverde MD
--- NOTE | 2018-07-20 13:49 | CP.PCM.PN ---
Subjective - Date & Time of Evaluation Date of Evaluation: 07/20/18 Time of Evaluation: 13:48 - Subjective Subjective: Nephrology Consultation Note: Assessment: Stable Acute Kidney Injury (N17.9) ? etiology. 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 Hypertension control with meds as ordered. Maintain hemodynamics stable. Avoid hypotension. Patient not on ACEI/ARB hence will add low dose acei. consider to add veltassa as outpt Monitor Input/Output, daily weights and renal function with basic metabolic panel low K diet and medical management of hyperkalemia as needed continue with iron and MVI. PRBC as needed. dose of aransep 40 mcg (07.14.18), next on 07/21/18 please obtain records from PCP about past kidney function results started weekly vit d PVR 161 ml. started flomax. consider outpt evaluation CHF optimization as per PMD/cardiology Dose meds/antibiotics for reduced GFR. Avoid fleets enema/magnesium based laxatives. Avoid nephrotoxins/NSAIDs/ iodinated contrast (unless needed emergently) Glycemic control Further work up/management as per primary team Thanks for allowing me to participate in care of your patient. Will follow patient with you. Please call if any Qs. had d/w team Dr Anjum Padron Office: [phone] Chief Complaint; left foot ulcer Reason for consult: Acute Kidney Injury HPI: Pt is a 72 M with hx of diabetes Mellitus (30 years), hypertension (years) ? PVD, gout presented with complaints of abnormal kidney fxn and left foot ulcer, being managed for EMIL and possible PVD Denies OTC/herbal meds or NSAIDs. pt says he used to take motrin in past but not these days. No recent iodinated contrast exposure. No obvious episodes of low BP. pt not aware about kidney disease in past ROS: Cardiovascular: No chest pain. Pulmonary: No shortness of breath Gastrointestinal: denies abdominal pain No nausea. No vomiting. Genitourinary: No pain while urinating. Denies blood in urine. sometimes feels hesitancy. All other negative except as mentioned in HPI Physical Examination: General Appearance: Comfortable, in no acute respiratory distress, co-operative . Vitals reviewed and noted as below Head; Atraumatic, normocephalic ENT: no ulcers no thrush. Tongue is midline. Oropharynx: no rash or ulcers. EYES: Pupils are equal, round and reactive to light accommodation. Eye muscles and extraocular movement intact. Sclera is anicteric. Neck; supple no lymphadenopathy, no thyromegaly or bruit Lungs: Normal respiratory rate/effort. Breath sounds bilateral equal and clear Heart: Normal rate. s1s2 normal. No rub or gallop. Extremities: no edema. No varicose veins. left foot great toe erythema. pedal pulses not palpable both feets Neurological: Patient is alert, awake and oriented to person, place and time. No focal deficit. Strength bilateral appropriate and equal Skin: Warm and dry. Normal turgor. No rash. Palpitation: Normal elasticity for age Abdomen: Abdomen is soft. Bowel sounds +. There is no abdominal tenderness, no g uarding/rigidity no organomegaly Psych: lack insight and normal affect/mood MSK: no joint tenderness or swelling. Digits and nails normal, no deformity : kidney or bladder not palpable. Labs/imaging reviewed. Past medical history, past surgical history, family history, social history, allergy reviewed and noted as below Family hx: no hx of CKD. Rest non-contributory Objective - Vital Signs/Intake and Output Vital Signs (last 24 hours): Temp Pulse Resp BP Pulse Ox 97.8 F 91 H 18 109/60 96 07/20/18 10:00 07/20/18 10:00 07/20/18 10:00 07/20/18 10:00 07/20/18 10:00 - Medications Medications: Current Medications Acetaminophen (Tylenol 650 Mg Supp) 650 mg RC Q6H PRN PRN Reason: Fever >100.4 F Allopurinol (Zyloprim) 100 mg PO DAILY [facility] Last Admin: 07/20/18 09:40 Dose: 100 mg Aspirin (Ecotrin) 81 mg PO 0800 [facility] Last Admin: 07/20/18 08:02 Dose: 81 mg Atorvastatin Calcium (Lipitor) 20 mg PO DIN [facility] Last Admin: 07/19/18 17:43 Dose: 20 mg Cilostazol (Pletal) 50 mg PO BID [facility] Last Admin: 07/20/18 09:38 Dose: 50 mg Darbepoetin Arturo (Aranesp) 60 mcg SC QWK [facility] Docusate Sodium (Colace) 100 mg PO TID [facility] Last Admin: 07/20/18 13:32 Dose: 100 mg Ergocalciferol (Drisdol 50,000 Intl Units Cap) 1 cap PO Q7D [facility] Ferrous Sulfate (Feosol) 324 mg PO BID [facility] Last Admin: 07/20/18 09:37 Dose: 324 mg Heparin Sodium (Porcine) (Heparin) 5,000 units SC Q8 [facility]; Protocol Last Admin: 07/20/18 13:31 Dose: 5,000 units Insulin Human Regular (Humulin R Med) 0 units SC ACHS [facility]; Protocol Last Admin: 07/20/18 12:19 Dose: 3 unit Lisinopril (Zestril) 2.5 mg PO DAILY [facility] Last Admin: 07/20/18 09:38 Dose: 2.5 mg Metoprolol Tartrate (Lopressor) 25 mg PO 0800,1800 [facility] Last Admin: 07/20/18 08:03 Dose: Not Given Ondansetron HCl (Zofran Inj) 4 mg IVP Q4H PRN PRN Reason: Nausea/Vomiting Pantoprazole Sodium (Protonix Ec Tab) 40 mg PO 0600 [facility] Last Admin: 07/20/18 05:16 Dose: 40 mg Tamsulosin HCl (Flomax) 0.4 mg PO 1830 [facility] Last Admin: 07/19/18 17:43 Dose: 0.4 mg Vitamin B Complex/Vit C/Folic Acid (Nephro-Sumit) 1 tab PO 0800 [facility] Last Admin: 07/20/18 08:03 Dose: 1 tab - Labs Labs: 07/18/18 07:30 07/20/18 06:00
--- NOTE | 2018-07-20 21:16 | PN ---
DATE: 07/20/2018 SUBJECTIVE: The patient is seen lying in the bed in room 304, bed 1. The patient is watching TV. The patient is comfortable. The patient denies any chest pain. Denies headache. Denies fever. Denies chills. Denies nausea. Denies vomiting. Denies hemoptysis. Denies melena. Denies fall. Denies syncope. PHYSICAL EXAMINATION: GENERAL: Text. VITAL SIGNS: T-max 97.8, heart rate 98 to 86, blood pressure 109/60, 109/68, respiration 18, O2 sat 96%. HEENT: Head is normocephalic, atraumatic. HEENT examination shows pinkish pale conjunctivae. Anicteric sclerae. NECK: No oropharyngeal lesion. No neck rigidity. CHEST: Kyphosis. CARDIOPULMONARY: S1, S2, regular rhythm. Positive systolic murmur at the left sternal border, right second costal space, left second costal space. LUNGS: Shows no audible crackle, rales or wheezing. ABDOMEN: Soft. Positive bowel sound. GENITALIA: Male. RECTAL: Deferred. EXTREMITIES: Shows no pitting edema. No calf numbness. No Homans' sign. Positive left foot great toe, diabetic ulceration noted. Both feet and legs are warm to touch. MUSCULOSKELETAL: Shows a body mass index of 24. NEUROLOGIC: The patient is alert, awake, oriented x3. He is able to move the upper and lower extremity without assistance. Gait examination is not tested. DIAGNOSTICS From 07/20/2018, sodium 140, potassium 4.5, chloride 106, CO2 of 25, anion gap 14, BUN 41, creatinine 1.9, GFR 35, glucose 212, calcium 9.4. LFTs are normal. CURRENT MEDICATIONS: The patient is on Aranesp 60 mcg weekly, Colace 100 mg three times a day, Drisdol 50,000 units weekly, Ecotrin 81 mg daily, ferrous sulfate 325 twice a day, Flomax 0.4 mg daily, heparin 5000 subcutaneously every 8, Humulin R sliding scale coverage a.c. and at bedtime, Lipitor 20 mg daily, Lopressor 25 mg twice a day, Nephro-Sumit 1 tablet daily, Pletal 50 mg twice a day, Protonix 40 mg daily, Tylenol p.r.n. The patient is started on Zestril 2.5 mg daily, Zofran 4 mg IV every 4 p.r.n., allopurinol 100 mg daily. IMPRESSION: 1. Deconditioning. 2. Gait dysfunction. 3. Left foot great toe diabetic foot ulceration. 5. Severe peripheral vascular disease. 6. Advanced left foot gouty arthritis. 7. Left foot first metatarsal joint diabetic ulceration. 8. Left foot gouty tophi day with multiple bone erosions foci, prominent in first metatarsophalangeal, third and fourth tarsal pharyngeal metatarsal joint. 9. Gouty arthritis. 10. 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 11. Hypotension. 12. Normocytic anemia. 13. Granulocytosis. 14. Elevated erythrocyte sedimentation rate of 30. 15. Acute kidney injury with underlying chronic kidney disease stage III. 16. Uncontrolled non-insulin requiring diabetes mellitus with hemoglobin A1c of 7.3 and fructosamine of 330. 17. Status post non-hemolyzed hyperkalemia. 18. Elevated C-reactive protein of 5.45. 19. Status post non-hemolyzed hyperkalemia. 20. Hypovitaminosis D. 21. Questionable nephrotic-range proteinuria. 22. Left foot Pseudomonas aeruginosa and Klebsiella oxytoca, left foot diabetic ulceration. 23. Questionable coagulase-negative Staphylococcus aureus bacteremia versus contamination. 24. Questionable urinary retention with postvoid residual of 161 mL. 25. Status post left popliteal artery, drug-eluting balloon angioplasty. 26. Severe peripheral vascular disease. 27. Left foot second toe amputation with ischemic ulceration. 28. Severe left trifurcation tibial and pedal occlusive disease. 29. Successful left popliteal artery drug-eluting balloon angioplasty. 30. Cardiomyopathy with left ventricular ejection fraction of 35%. Pulmonary hypertension with left ventricular ejection fraction. 31. Pulmonary hypertension with right ventricular systolic pressure of 40 mmHg. 32. Moderately impaired left ventricular systolic function with left ventricular global hypokinesis. 33. Mild aortic regurgitation. 34. [id number] mitral regurgitation. 35. Moderate tricuspid regurgitation. 36. Left axis deviation. 37. Acute kidney injury, probably secondary to nonsteroidal anti-inflammatory drug use with peripheral eosinophilia. 38. Hyperkalemic metabolic acidosis. 39. Diabetic hypertensive chronic kidney disease. 40. Left foot diabetic ulceration. 41. Constipation. 42. Urinary retention. 43. Peripheral vascular disease. 44. Hyperuricemia. PLAN: The patient is on daily physical therapy, occupational therapy, ambulation therapy. At this time, we are awaiting further recommendations from the Podiatry, Infectious Disease, Nephrology, Cardiology. The patient will continue on Transitional Care Unit till approved number of days. Upon completion of the transitional care unit stay and upon completion of the IV antibiotics, the patient will be considered for discharge. Dictated and electronically signed, not read. Niranjan Ling MD
[2018-07-21] MEDS: Pantoprazole 40 mg EC Tab PO SCH (05:18)
[2018-07-21] MEDS: Insulin Reg-MEDIUM-Coverage SC SCH ×4 (06:48→21:33)
[2018-07-21] MEDS: Multivitamin Vitamin B Complex (Nephro-Vite) Tab PO SCH (08:06)
[2018-07-21] MEDS ORDERED: Darbepoetin Alfa 60 mcg/ml Inj SC SCH (10:00)
--- NOTE | 2018-07-21 10:35 | PN ---
DATE: 07/21/2018 SUBJECTIVE: The patient is seen. The patient is in room 2304. Overnight nurse's notes were reviewed. No adverse events documented. The patient is comfortable. Denies any chest pain. Denies nausea, denies vomiting, denies hemoptysis. Denies melena. Denies fall. Denies syncope. OBJECTIVE: VITAL SIGNS: T-max 97.8, heart rate 91, blood pressure 108/68, respiration 18, O2 sat 96%. HEENT: The patient's head examination normocephalic, atraumatic. HEENT examination shows pinkish pale conjunctivae. Anicteric sclerae. No oropharyngeal lesions. NECK: No neck rigidity. CHEST: Kyphosis. LUNGS: Shows no audible crackle, rales or wheezing. CARDIOVASCULAR: S1, S2, regular rhythm. Questionable systolic murmur left sternal border, right second intercostal space, left second intercostal space. ABDOMEN: Soft. Positive bowel sounds. No palpable hepatosplenomegaly, no organomegaly. GENITALIA: Male. RECTAL: Deferred. EXTREMITIES: Shows positive left foot toe ulceration. No pitting edema noted. Trace swelling of the feet noted. Both feet are warm to touch. MUSCULOSKELETAL: As per the body mass index. Motor strength is 5/5 in the upper and lower extremities. Gait examination is not tested. VASCULAR: Nonpalpable pulses. Motor strength is 5/5 in upper extremities. Gait examination as per physical therapy notes. IMPRESSION: 1. Deconditioning. 2. Gait dysfunction. 3. Coagulase-negative Staphylococcus aureus bacteremia versus contamination. 4 Gram-negative chari left foot second toe and first toe diabetic foot ulceration. 5. Status post angioplasty and drug-eluting stent placement of the left lower extremity. 6. Uncontrolled non-insulin diabetes mellitus with hemoglobin A1c of 7.5. 7. Dilated cardiomyopathy. 8. Acute kidney injury with underlying chronic kidney disease stage III. 9. Status post non-hemolyzed hyperkalemia. 10. Hyperlipidemia. 11. Hypovitaminosis D. 12. Urinary retention with increased postvoid residual of greater than 160 mL. 13. Acute kidney injury, probably secondary to nonsteroidal anti-inflammatory drug use. 14. History of hypertension. PLAN: Plan at this time, the patient seen by Dr. Landaverde. Findings were discussed. At present, the patient is being on consult with Podiatry, Nephrology, Interventional Radiology. At present, the patient will be continued on all the medications as per the MAR today.. Further management will be dependent upon the patient's clinical condition, hemodynamic status and as per the patient response to therapeutic intervention, as per the patient's diagnostic test results. The patient will continue on daily physical therapy, occupational therapy, ambulation therapy, gait training. The patient will be continued on TCU till approved number of days. Dictated and electronically signed, not read. Niranjan Ling MD
[2018-07-21] MEDS: Cilostazol 50 mg Tab UD PO SCH ×2 (11:00→17:35)
--- NOTE | 2018-07-21 11:13 | CP.PCM.PN ---
Subjective - Date & Time of Evaluation Date of Evaluation: 07/21/18 Time of Evaluation: 11:09 - Subjective Subjective: Podiatry Progress Note for Dr. Milton Heller: 72M patient seen and evaluated at bedside for L foot ulceration secondary to non-healing second digit amputation and PAD. Patient resting comfortably and in NAD. He states that he is feeling well today. Denies N/V/F/SOB/CP Objective - Vital Signs/Intake and Output Vital Signs (last 24 hours): Temp Pulse Resp BP Pulse Ox 98.7 F 92 H 20 110/62 98 07/21/18 09:23 07/21/18 09:23 07/21/18 09:23 07/21/18 09:23 07/21/18 09:23 - Medications Medications: Current Medications Acetaminophen (Tylenol 650 Mg Supp) 650 mg RC Q6H PRN PRN Reason: Fever >100.4 F Allopurinol (Zyloprim) 100 mg PO DAILY [facility] Last Admin: 07/20/18 09:40 Dose: 100 mg Aspirin (Ecotrin) 81 mg PO 0800 [facility] Last Admin: 07/21/18 08:06 Dose: 81 mg Atorvastatin Calcium (Lipitor) 20 mg PO DIN [facility] Last Admin: 07/20/18 17:07 Dose: 20 mg Cilostazol (Pletal) 50 mg PO BID [facility] Last Admin: 07/20/18 17:07 Dose: 50 mg Darbepoetin Arturo (Aranesp) 60 mcg SC QWK [facility] Docusate Sodium (Colace) 100 mg PO TID [facility] Last Admin: 07/20/18 17:06 Dose: 100 mg Ergocalciferol (Drisdol 50,000 Intl Units Cap) 1 cap PO Q7D [facility] Ferrous Sulfate (Feosol) 324 mg PO BID [facility] Last Admin: 07/20/18 17:06 Dose: 324 mg Heparin Sodium (Porcine) (Heparin) 5,000 units SC Q8 [facility]; Protocol Last Admin: 07/21/18 05:19 Dose: 5,000 units Insulin Human Regular (Humulin R Med) 0 units SC ACHS [facility]; Protocol Last Admin: 07/21/18 06:48 Dose: 3 unit Lisinopril (Zestril) 2.5 mg PO DAILY [facility] Last Admin: 07/20/18 09:38 Dose: 2.5 mg Metoprolol Tartrate (Lopressor) 25 mg PO 0800,1800 [facility] Last Admin: 07/21/18 08:13 Dose: 25 mg Ondansetron HCl (Zofran Inj) 4 mg IVP Q4H PRN PRN Reason: Nausea/Vomiting Pantoprazole Sodium (Protonix Ec Tab) 40 mg PO 0600 [facility] Last Admin: 07/21/18 05:18 Dose: 40 mg Tamsulosin HCl (Flomax) 0.4 mg PO 1830 [facility] Last Admin: 07/20/18 17:34 Dose: 0.4 mg Vitamin B Complex/Vit C/Folic Acid (Nephro-Sumit) 1 tab PO 0800 [facility] Last Admin: 07/21/18 08:06 Dose: 1 tab - Labs Labs: 07/18/18 07:30 07/20/18 06:00 - Constitutional Appears: Well, Non-toxic, No Acute Distress - Head Exam Head Exam: ATRAUMATIC, NORMOCEPHALIC - Extremities Exam Additional comments: B/L lower extremity focused exam: Vascular: DP/PT non-palpable, CFT > 3 seconds to digits x9, TG warm to cool bilaterally, +1 edema appreciated to dorsal aspect of L foot in the first interspace Ortho: Tenderness to palpation of gouty nodules to L foot, MMT 4/5, Right HAV deformity bilaterally, rigid 3rd digit HT to left Neuro: Gross sensation intact, protective sensation diminished Derm: Ulceration noted to first interspace on the L at the site of previous second digit amputation. Measuring about 0.5 x 0.5 x .1 cm, 100% fibrotic base, decreasing in size, mild serous drainage, no purulence, no tunneling appreciated, no probe to bone, mild erythema appreciated. - Neurological Exam Neurological Exam: Alert, Awake, Oriented x3 - Psychiatric Exam Psychiatric exam: Normal Affect, Normal Mood Assessment and Plan - Assessment and Plan (Free Text) Assessment: 72M patient seen and evaluated at bedside for L foot ulceration secondary to non -healing second digit amputation and PAD; ulceration site resolving at this time Plan: Patient seen and evaluated at bedside with Dr. Heller B/L ERYN US; no evidence of DVT L foot wound culture; Pseudomonas, Klebsiella ID consulted, reccs appreciated L foot x-rays taken; suspicious for OM at hallux, 1st met, 3rd and 4th mets. Diffuse degenerative joint disease throughout L foot, prior 2nd digit amp Lower extremity MRI ordered to rule out OM vs arthritic changes; findings suggestive of advanced gout arthritis. Skin ulcer adjacent to the 1st MTPJ. No evidence of abscess formation. No definitive evidence of OM Arterial US: FAHAD R 0.56, L 0.3; B/L distal SFA, politeal, and trifurcation; B/L tibial disease - Angio with Dr. Lujan. Severe left trifurcation, tibial, and pedal occlusive disease. Successful left popliteal artery drug-eluting balloon angioplasty. Uncertain with the extensive chronic distal occlusive disease whether ulceration will heal. Unfortunately revascularization options are limited. Continued wound care and possibly hyperbaric treatment may be useful. Local wound care; DSD Patient stable from podiatry stand point, pending d/c patient to f/u in Dr. Milton Heller's office within the week of discharge for continued wound care
--- NOTE | 2018-07-21 12:47 | CP.PCM.PN ---
Subjective - Date & Time of Evaluation Date of Evaluation: 07/21/18 Time of Evaluation: 10:05 - Subjective Subjective: Comfortable, no increased pain in the left leg, feels better, no fevers. Objective - Vital Signs/Intake and Output Vital Signs (last 24 hours): Temp Pulse Resp BP Pulse Ox 97.8 F 91 H 18 108/68 96 07/20/18 10:00 07/20/18 10:00 07/20/18 10:00 07/20/18 17:07 07/20/18 10:00 - Medications Medications: Current Medications Acetaminophen (Tylenol 650 Mg Supp) 650 mg RC Q6H PRN PRN Reason: Fever >100.4 F Allopurinol (Zyloprim) 100 mg PO DAILY [facility] Last Admin: 07/20/18 09:40 Dose: 100 mg Aspirin (Ecotrin) 81 mg PO 0800 [facility] Last Admin: 07/20/18 08:02 Dose: 81 mg Atorvastatin Calcium (Lipitor) 20 mg PO DIN [facility] Last Admin: 07/20/18 17:07 Dose: 20 mg Cilostazol (Pletal) 50 mg PO BID [facility] Last Admin: 07/20/18 17:07 Dose: 50 mg Darbepoetin Arturo (Aranesp) 60 mcg SC QWK [facility] Docusate Sodium (Colace) 100 mg PO TID [facility] Last Admin: 07/20/18 17:06 Dose: 100 mg Ergocalciferol (Drisdol 50,000 Intl Units Cap) 1 cap PO Q7D [facility] Ferrous Sulfate (Feosol) 324 mg PO BID [facility] Last Admin: 07/20/18 17:06 Dose: 324 mg Heparin Sodium (Porcine) (Heparin) 5,000 units SC Q8 [facility]; Protocol Last Admin: 07/21/18 05:19 Dose: 5,000 units Insulin Human Regular (Humulin R Med) 0 units SC ACHS [facility]; Protocol Last Admin: 07/21/18 06:48 Dose: 3 unit Lisinopril (Zestril) 2.5 mg PO DAILY [facility] Last Admin: 07/20/18 09:38 Dose: 2.5 mg Metoprolol Tartrate (Lopressor) 25 mg PO 0800,1800 [facility] Last Admin: 07/20/18 17:07 Dose: 25 mg Ondansetron HCl (Zofran Inj) 4 mg IVP Q4H PRN PRN Reason: Nausea/Vomiting Pantoprazole Sodium (Protonix Ec Tab) 40 mg PO 0600 [facility] Last Admin: 07/21/18 05:18 Dose: 40 mg Tamsulosin HCl (Flomax) 0.4 mg PO 1830 [facility] Last Admin: 07/20/18 17:34 Dose: 0.4 mg Vitamin B Complex/Vit C/Folic Acid (Nephro-Sumit) 1 tab PO 0800 [facility] Last Admin: 07/20/18 08:03 Dose: 1 tab - Labs Labs: 07/18/18 07:30 07/20/18 06:00 - Constitutional Appears: Chronically Ill - Head Exam Head Exam: NORMAL INSPECTION - Respiratory Exam Respiratory Exam: Decreased Breath Sounds - Cardiovascular Exam Cardiovascular Exam: +S1, +S2 - GI/Abdominal Exam GI & Abdominal Exam: Soft. absent: Tenderness - Extremities Exam Additional comments: left foot without erythema, wound on area of previous 2nd toe looks clean Assessment and Plan - Assessment and Plan (Free Text) Plan: Assessment S/P left foot cellulitis in this patient with severe PAD, S/P left popliteal stent placement, previously grew Pseudomonas and Klebsiella acute renal failure, slowly improving DM gout Plan continue to monitor off antibiotics since he is at risk for infections discussed and examined with Podiatry
--- NOTE | 2018-07-21 14:01 | PN ---
DATE: 07/21/2018 SUBJECTIVE: The patient is in the TCU. No shortness of breath. No chest pain noted. PHYSICAL EXAMINATION: VITAL SIGNS: Blood pressure is 110/68, heart rate is in the 90s. NECK: Negative JVD. LUNGS: Without rales. HEART: S1, S2. EXTREMITIES: Bandaged lower extremities. LABORATORY: Hemoglobin and 9.4. Chemistries, BUN and creatinine 41 and 1.9. IMPRESSION: 1. Peripheral vascular disease. 2. Dilated cardiomyopathy. 3. High probability for coronary artery disease. 4. Hypercholesterolemia. 5. Dilated cardiomyopathy. PLAN: Once again the patient is hemodynamically stable. He refuses any further screening for coronary artery disease. Milton Murrell MD
--- NOTE | 2018-07-21 15:57 | CP.PCM.PN ---
Subjective - Date & Time of Evaluation Date of Evaluation: 07/21/18 Time of Evaluation: 15:56 - Subjective Subjective: Nephrology Consultation Note: Assessment: Stable Acute Kidney Injury (N17.9) ? etiology. 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 Hypertension control with meds as ordered. Maintain hemodynamics stable. Avoid hypotension. Patient not on ACEI/ARB hence will add low dose acei. consider to add veltassa as outpt Monitor Input/Output, daily weights and renal function with basic metabolic panel low K diet and medical management of hyperkalemia as needed continue with iron and MVI. PRBC as needed. dose of aransep 40 mcg (07.14.18), next on 07/21/18 please obtain records from PCP about past kidney function results started weekly vit d PVR 161 ml. started flomax. consider outpt evaluation CHF optimization as per PMD/cardiology Dose meds/antibiotics for reduced GFR. Avoid fleets enema/magnesium based laxatives. Avoid nephrotoxins/NSAIDs/ iodinated contrast (unless needed emergently) Glycemic control Further work up/management as per primary team Thanks for allowing me to participate in care of your patient. Will follow patient with you. Please call if any Qs. had d/w team Dr Anjum Padron Office: [phone] Chief Complaint; left foot ulcer Reason for consult: Acute Kidney Injury HPI: Pt is a 72 M with hx of diabetes Mellitus (30 years), hypertension (years) ? PVD, gout presented with complaints of abnormal kidney fxn and left foot ulcer, being managed for EMIL and possible PVD Denies OTC/herbal meds or NSAIDs. pt says he used to take motrin in past but not these days. No recent iodinated contrast exposure. No obvious episodes of low BP. pt not aware about kidney disease in past ROS: Cardiovascular: No chest pain. Pulmonary: No shortness of breath Gastrointestinal: denies abdominal pain No nausea. No vomiting. Genitourinary: No pain while urinating. Denies blood in urine. sometimes feels hesitancy. All other negative except as mentioned in HPI Physical Examination: General Appearance: Comfortable, in no acute respiratory distress, co-operative . Vitals reviewed and noted as below Head; Atraumatic, normocephalic ENT: no ulcers no thrush. Tongue is midline. Oropharynx: no rash or ulcers. EYES: Pupils are equal, round and reactive to light accommodation. Eye muscles and extraocular movement intact. Sclera is anicteric. Neck; supple no lymphadenopathy, no thyromegaly or bruit Lungs: Normal respiratory rate/effort. Breath sounds bilateral equal and clear Heart: Normal rate. s1s2 normal. No rub or gallop. Extremities: no edema. No varicose veins. left foot great toe erythema. pedal pulses not palpable both feets Neurological: Patient is alert, awake and oriented to person, place and time. No focal deficit. Strength bilateral appropriate and equal Skin: Warm and dry. Normal turgor. No rash. Palpitation: Normal elasticity for age Abdomen: Abdomen is soft. Bowel sounds +. There is no abdominal tenderness, no g uarding/rigidity no organomegaly Psych: lack insight and normal affect/mood MSK: no joint tenderness or swelling. Digits and nails normal, no deformity : kidney or bladder not palpable. Labs/imaging reviewed. Past medical history, past surgical history, family history, social history, allergy reviewed and noted as below Family hx: no hx of CKD. Rest non-contributory Objective - Vital Signs/Intake and Output Vital Signs (last 24 hours): Temp Pulse Resp BP Pulse Ox 98.7 F 92 H 20 110/62 98 07/21/18 09:23 07/21/18 11:00 07/21/18 09:23 07/21/18 11:00 07/21/18 09:23 - Medications Medications: Current Medications Acetaminophen (Tylenol 650 Mg Supp) 650 mg RC Q6H PRN PRN Reason: Fever >100.4 F Allopurinol (Zyloprim) 100 mg PO DAILY [facility] Last Admin: 07/21/18 11:00 Dose: 100 mg Aspirin (Ecotrin) 81 mg PO 0800 [facility] Last Admin: 07/21/18 08:06 Dose: 81 mg Atorvastatin Calcium (Lipitor) 20 mg PO DIN [facility] Last Admin: 07/20/18 17:07 Dose: 20 mg Cilostazol (Pletal) 50 mg PO BID [facility] Last Admin: 07/21/18 11:00 Dose: 50 mg Darbepoetin Arturo (Aranesp) 60 mcg SC QWK [facility] Last Admin: 07/21/18 11:07 Dose: 60 mcg Docusate Sodium (Colace) 100 mg PO TID [facility] Last Admin: 07/21/18 14:48 Dose: 100 mg Ergocalciferol (Drisdol 50,000 Intl Units Cap) 1 cap PO Q7D [facility] Ferrous Sulfate (Feosol) 324 mg PO BID [facility] Last Admin: 07/21/18 11:00 Dose: 324 mg Heparin Sodium (Porcine) (Heparin) 5,000 units SC Q8 [facility]; Protocol Last Admin: 07/21/18 05:19 Dose: 5,000 units Insulin Human Regular (Humulin R Med) 0 units SC ACHS [facility]; Protocol Last Admin: 07/21/18 12:25 Dose: 5 unit Lisinopril (Zestril) 2.5 mg PO DAILY [facility] Last Admin: 07/21/18 11:00 Dose: 2.5 mg Metoprolol Tartrate (Lopressor) 25 mg PO 0800,1800 [facility] Last Admin: 07/21/18 08:13 Dose: 25 mg Ondansetron HCl (Zofran Inj) 4 mg IVP Q4H PRN PRN Reason: Nausea/Vomiting Pantoprazole Sodium (Protonix Ec Tab) 40 mg PO 0600 [facility] Last Admin: 07/21/18 05:18 Dose: 40 mg Tamsulosin HCl (Flomax) 0.4 mg PO 1830 [facility] Last Admin: 07/20/18 17:34 Dose: 0.4 mg Vitamin B Complex/Vit C/Folic Acid (Nephro-Sumit) 1 tab PO 0800 [facility] Last Admin: 07/21/18 08:06 Dose: 1 tab - Labs Labs: 07/18/18 07:30 07/20/18 06:00
[2018-07-21] MEDS ORDERED: Ergocalciferol 50,000 Intl Units Cap PO SCH (18:00)
[2018-07-22] MEDS: Pantoprazole 40 mg EC Tab PO SCH (05:50)
[2018-07-22] MEDS: Insulin Reg-MEDIUM-Coverage SC SCH ×4 (06:59→21:22)
--- NOTE | 2018-07-22 07:46 | CP.PCM.PN ---
Subjective - Date & Time of Evaluation Date of Evaluation: 07/22/18 Time of Evaluation: 07:34 - Subjective Subjective: Podiatry Progress Note for Dr. Milton Heller: 72M patient seen and evaluated at bedside for L foot ulceration secondary to non-healing second digit amputation and PAD. Patient resting comfortably and in NAD. He reports mild pain between his first and second toe today. Denies N/V/F/SOB/CP Objective - Vital Signs/Intake and Output Vital Signs (last 24 hours): Temp Pulse Resp BP Pulse Ox 98.7 F 84 20 111/61 98 07/21/18 09:23 07/21/18 17:35 07/21/18 09:23 07/21/18 17:35 07/21/18 09:23 Intake and Output: 07/22/18 07/22/18 06:59 18:59 Intake Total 420 Output Total 450 Balance -30 - Medications Medications: Current Medications Acetaminophen (Tylenol 650 Mg Supp) 650 mg RC Q6H PRN PRN Reason: Fever >100.4 F Acetaminophen (Tylenol 325mg Tab) 650 mg PO Q6H [facility]; Protocol PRN Reason: Pain, moderate (4-7) Last Admin: 07/21/18 19:35 Dose: 650 mg Allopurinol (Zyloprim) 100 mg PO DAILY [facility] Last Admin: 07/21/18 11:00 Dose: 100 mg Aspirin (Ecotrin) 81 mg PO 0800 [facility] Last Admin: 07/21/18 08:06 Dose: 81 mg Atorvastatin Calcium (Lipitor) 20 mg PO DIN [facility] Last Admin: 07/21/18 17:24 Dose: 20 mg Cilostazol (Pletal) 50 mg PO BID [facility] Last Admin: 07/21/18 17:35 Dose: 50 mg Darbepoetin Arturo (Aranesp) 60 mcg SC QWK [facility] Last Admin: 07/21/18 11:07 Dose: 60 mcg Docusate Sodium (Colace) 100 mg PO TID [facility] Last Admin: 07/21/18 17:24 Dose: 100 mg Ergocalciferol (Drisdol 50,000 Intl Units Cap) 1 cap PO Q7D [facility] Last Admin: 07/21/18 17:38 Dose: 1 cap Ferrous Sulfate (Feosol) 324 mg PO BID [facility] Last Admin: 07/21/18 17:35 Dose: 324 mg Heparin Sodium (Porcine) (Heparin) 5,000 units SC Q8 [facility]; Protocol Last Admin: 07/22/18 05:45 Dose: 5,000 units Insulin Human Regular (Humulin R Med) 0 units SC ACHS [facility]; Protocol Last Admin: 07/22/18 06:59 Dose: 1 unit Lisinopril (Zestril) 2.5 mg PO DAILY [facility] Last Admin: 07/21/18 11:00 Dose: 2.5 mg Metoprolol Tartrate (Lopressor) 25 mg PO 0800,1800 [facility] Last Admin: 07/21/18 17:35 Dose: 25 mg Ondansetron HCl (Zofran Inj) 4 mg IVP Q4H PRN PRN Reason: Nausea/Vomiting Pantoprazole Sodium (Protonix Ec Tab) 40 mg PO 0600 [facility] Last Admin: 07/22/18 05:50 Dose: 40 mg Tamsulosin HCl (Flomax) 0.4 mg PO 1830 [facility] Last Admin: 07/21/18 17:35 Dose: 0.4 mg Vitamin B Complex/Vit C/Folic Acid (Nephro-Sumit) 1 tab PO 0800 [facility] Last Admin: 07/21/18 08:06 Dose: 1 tab - Labs Labs: 07/18/18 07:30 07/20/18 06:00 - Constitutional Appears: Well, Non-toxic, No Acute Distress - Head Exam Head Exam: ATRAUMATIC, NORMOCEPHALIC - Extremities Exam Additional comments: B/L lower extremity focused exam: Vascular: DP/PT non-palpable, CFT > 3 seconds to digits x9, TG warm to cool bilaterally, +1 edema appreciated to dorsal aspect of L foot in the first interspace Ortho: Tenderness to palpation of gouty nodules to L foot, MMT 4/5, Right HAV deformity bilaterally, rigid 3rd digit HT to left Neuro: Gross sensation intact, protective sensation diminished Derm: Ulceration noted to first interspace on the L at the site of previous second digit amputation. Measuring about 0.5 x 0.5 x .1 cm, 100% fibrotic base, decreasing in size, mild serous drainage, no purulence, no tunneling appreciated, no probe to bone. - Neurological Exam Neurological Exam: Alert, Awake, Oriented x3 - Psychiatric Exam Psychiatric exam: Normal Affect, Normal Mood - Skin Skin Exam: Warm Assessment and Plan - Assessment and Plan (Free Text) Assessment: 72M patient seen and evaluated at bedside for L foot ulceration secondary to non-healing second digit amputation and PAD; ulceration site resolving at this time Plan: Patient seen and evaluated at bedside with Dr. Heller B/L ERYN US; no evidence of DVT L foot wound culture; Pseudomonas, Klebsiella F/U with ID reccs; continue to monitor off antibiotics since he is at risk for infections L foot x-rays taken; suspicious for OM at hallux, 1st met, 3rd and 4th mets. Diffuse degenerative joint disease throughout L foot, prior 2nd digit amp Lower extremity MRI ordered to rule out OM vs arthritic changes; findings suggestive of advanced gout arthritis. Skin ulcer adjacent to the 1st MTPJ. No evidence of abscess formation. No definitive evidence of OM Arterial US: FAHAD R 0.56, L 0.3; B/L distal SFA, politeal, and trifurcation; B/L tibial disease - Angio with Dr. Lujan. Severe left trifurcation, tibial, and pedal occlusive disease. Successful left popliteal artery drug-eluting balloon angioplasty. Uncertain with the extensive chronic distal occlusive disease whether ulceration will heal. Unfortunately revascularization options are limited. Continued wound care and possibly hyperbaric treatment may be useful. Local wound care; DSD. Patient instructed to keep foot dressing c/d/i and educated on how to do dressing changes at home. Patient stable from podiatry stand point, pending d/c patient to f/u in Dr. Milton Heller's office within the week of discharge for continued wound care
[2018-07-22] MEDS: Multivitamin Vitamin B Complex (Nephro-Vite) Tab PO SCH (07:53)
[2018-07-22] MEDS: Cilostazol 50 mg Tab UD PO SCH ×2 (10:11→17:21)
--- NOTE | 2018-07-22 12:46 | CP.PCM.PN ---
Subjective - Date & Time of Evaluation Date of Evaluation: 07/22/18 Time of Evaluation: 10:40 - Subjective Subjective: Afebrile, not in distress. Objective - Vital Signs/Intake and Output Vital Signs (last 24 hours): Temp Pulse Resp BP Pulse Ox 98.7 F 92 H 20 110/62 98 07/21/18 09:23 07/21/18 11:00 07/21/18 09:23 07/21/18 11:00 07/21/18 09:23 - Medications Medications: Current Medications Acetaminophen (Tylenol 650 Mg Supp) 650 mg RC Q6H PRN PRN Reason: Fever >100.4 F Allopurinol (Zyloprim) 100 mg PO DAILY [facility] Last Admin: 07/21/18 11:00 Dose: 100 mg Aspirin (Ecotrin) 81 mg PO 0800 [facility] Last Admin: 07/21/18 08:06 Dose: 81 mg Atorvastatin Calcium (Lipitor) 20 mg PO DIN [facility] Last Admin: 07/20/18 17:07 Dose: 20 mg Cilostazol (Pletal) 50 mg PO BID [facility] Last Admin: 07/21/18 11:00 Dose: 50 mg Darbepoetin Arturo (Aranesp) 60 mcg SC QWK [facility] Last Admin: 07/21/18 11:07 Dose: 60 mcg Docusate Sodium (Colace) 100 mg PO TID [facility] Last Admin: 07/21/18 11:00 Dose: 100 mg Ergocalciferol (Drisdol 50,000 Intl Units Cap) 1 cap PO Q7D [facility] Ferrous Sulfate (Feosol) 324 mg PO BID [facility] Last Admin: 07/21/18 11:00 Dose: 324 mg Heparin Sodium (Porcine) (Heparin) 5,000 units SC Q8 [facility]; Protocol Last Admin: 07/21/18 05:19 Dose: 5,000 units Insulin Human Regular (Humulin R Med) 0 units SC ACHS [facility]; Protocol Last Admin: 07/21/18 12:25 Dose: 5 unit Lisinopril (Zestril) 2.5 mg PO DAILY [facility] Last Admin: 07/21/18 11:00 Dose: 2.5 mg Metoprolol Tartrate (Lopressor) 25 mg PO 0800,1800 [facility] Last Admin: 07/21/18 08:13 Dose: 25 mg Ondansetron HCl (Zofran Inj) 4 mg IVP Q4H PRN PRN Reason: Nausea/Vomiting Pantoprazole Sodium (Protonix Ec Tab) 40 mg PO 0600 [facility] Last Admin: 07/21/18 05:18 Dose: 40 mg Tamsulosin HCl (Flomax) 0.4 mg PO 1830 [facility] Last Admin: 07/20/18 17:34 Dose: 0.4 mg Vitamin B Complex/Vit C/Folic Acid (Nephro-Sumit) 1 tab PO 0800 [facility] Last Admin: 07/21/18 08:06 Dose: 1 tab - Labs Labs: 07/18/18 07:30 07/20/18 06:00 - Constitutional Appears: Chronically Ill - Head Exam Head Exam: NORMAL INSPECTION - Respiratory Exam Respiratory Exam: Decreased Breath Sounds - Cardiovascular Exam Cardiovascular Exam: +S1, +S2 - GI/Abdominal Exam GI & Abdominal Exam: Soft. absent: Tenderness Assessment and Plan - Assessment and Plan (Free Text) Plan: Assessment S/P left foot cellulitis in this patient with severe PAD, S/P left popliteal stent placement, previously grew Pseudomonas and Klebsiella acute renal failure, slowly improving DM gout Plan continue to monitor off antibiotics since he is at risk for nosocomial infections discussed and examined with Podiatry
--- NOTE | 2018-07-22 14:36 | CP.PCM.PN ---
Subjective - Date & Time of Evaluation Date of Evaluation: 07/22/18 Time of Evaluation: 14:35 - Subjective Subjective: Nephrology Consultation Note: Assessment: Stable Acute Kidney Injury (N17.9) ? etiology. 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 Hypertension control with meds as ordered. Maintain hemodynamics stable. Avoid hypotension. Patient not on ACEI/ARB hence will add low dose acei. consider to add veltassa as outpt Monitor Input/Output, daily weights and renal function with basic metabolic panel low K diet and medical management of hyperkalemia as needed continue with iron and MVI. PRBC as needed. dose of aransep 40 mcg (07.14.18), next on 07/21/18 please obtain records from PCP about past kidney function results started weekly vit d PVR 161 ml. started flomax. consider outpt evaluation CHF optimization as per PMD/cardiology Dose meds/antibiotics for reduced GFR. Avoid fleets enema/magnesium based laxatives. Avoid nephrotoxins/NSAIDs/ iodinated contrast (unless needed emergently) Glycemic control Further work up/management as per primary team Thanks for allowing me to participate in care of your patient. Will follow patient with you. Please call if any Qs. had d/w team Dr Anjum Padron Office: [phone] Chief Complaint; left foot ulcer Reason for consult: Acute Kidney Injury HPI: Pt is a 72 M with hx of diabetes Mellitus (30 years), hypertension (years) ? PVD, gout presented with complaints of abnormal kidney fxn and left foot ulcer, being managed for EMIL and possible PVD Denies OTC/herbal meds or NSAIDs. pt says he used to take motrin in past but not these days. No recent iodinated contrast exposure. No obvious episodes of low BP. pt not aware about kidney disease in past ROS: Cardiovascular: No chest pain. Pulmonary: No shortness of breath Gastrointestinal: denies abdominal pain No nausea. No vomiting. Genitourinary: No pain while urinating. Denies blood in urine. sometimes feels hesitancy. All other negative except as mentioned in HPI Physical Examination: General Appearance: Comfortable, in no acute respiratory distress, co-operative . Vitals reviewed and noted as below Head; Atraumatic, normocephalic ENT: no ulcers no thrush. Tongue is midline. Oropharynx: no rash or ulcers. EYES: Pupils are equal, round and reactive to light accommodation. Eye muscles and extraocular movement intact. Sclera is anicteric. Neck; supple no lymphadenopathy, no thyromegaly or bruit Lungs: Normal respiratory rate/effort. Breath sounds bilateral equal and clear Heart: Normal rate. s1s2 normal. No rub or gallop. Extremities: no edema. No varicose veins. left foot great toe erythema. pedal pulses not palpable both feets Neurological: Patient is alert, awake and oriented to person, place and time. No focal deficit. Strength bilateral appropriate and equal Skin: Warm and dry. Normal turgor. No rash. Palpitation: Normal elasticity for age Abdomen: Abdomen is soft. Bowel sounds +. There is no abdominal tenderness, no g uarding/rigidity no organomegaly Psych: lack insight and normal affect/mood MSK: no joint tenderness or swelling. Digits and nails normal, no deformity : kidney or bladder not palpable. Labs/imaging reviewed. Past medical history, past surgical history, family history, social history, allergy reviewed and noted as below Family hx: no hx of CKD. Rest non-contributory Objective - Vital Signs/Intake and Output Vital Signs (last 24 hours): Temp Pulse Resp BP Pulse Ox 98.7 F 91 H 20 111/61 98 07/21/18 09:23 07/22/18 07:55 07/21/18 09:23 07/21/18 17:35 07/21/18 09:23 Intake and Output: 07/22/18 07/22/18 06:59 18:59 Intake Total 420 Output Total 450 Balance -30 - Medications Medications: Current Medications Acetaminophen (Tylenol 650 Mg Supp) 650 mg RC Q6H PRN PRN Reason: Fever >100.4 F Acetaminophen (Tylenol 325mg Tab) 650 mg PO Q6H PRN; Protocol PRN Reason: Pain, moderate (4-7) Last Admin: 07/21/18 19:35 Dose: 650 mg Allopurinol (Zyloprim) 100 mg PO DAILY [facility] Last Admin: 07/22/18 10:11 Dose: 100 mg Aspirin (Ecotrin) 81 mg PO 0800 [facility] Last Admin: 07/22/18 07:53 Dose: 81 mg Atorvastatin Calcium (Lipitor) 20 mg PO DIN [facility] Last Admin: 07/21/18 17:24 Dose: 20 mg Cilostazol (Pletal) 50 mg PO BID [facility] Last Admin: 07/22/18 10:11 Dose: 50 mg Darbepoetin Arturo (Aranesp) 60 mcg SC QWK [facility] Last Admin: 07/21/18 11:07 Dose: 60 mcg Docusate Sodium (Colace) 100 mg PO TID [facility] Last Admin: 07/22/18 14:32 Dose: 100 mg Ergocalciferol (Drisdol 50,000 Intl Units Cap) 1 cap PO Q7D [facility] Last Admin: 07/21/18 17:38 Dose: 1 cap Ferrous Sulfate (Feosol) 324 mg PO BID [facility] Last Admin: 07/22/18 10:11 Dose: 324 mg Heparin Sodium (Porcine) (Heparin) 5,000 units SC Q8 [facility]; Protocol Last Admin: 07/22/18 14:31 Dose: 5,000 units Insulin Human Regular (Humulin R Med) 0 units SC ACHS [facility]; Protocol Last Admin: 07/22/18 12:11 Dose: 3 unit Lisinopril (Zestril) 2.5 mg PO DAILY [facility] Last Admin: 07/22/18 10:11 Dose: Not Given Metoprolol Tartrate (Lopressor) 25 mg PO 0800,1800 [facility] Last Admin: 07/22/18 07:55 Dose: 25 mg Ondansetron HCl (Zofran Inj) 4 mg IVP Q4H PRN PRN Reason: Nausea/Vomiting Pantoprazole Sodium (Protonix Ec Tab) 40 mg PO 0600 [facility] Last Admin: 07/22/18 05:50 Dose: 40 mg Tamsulosin HCl (Flomax) 0.4 mg PO 1830 [facility] Last Admin: 07/21/18 17:35 Dose: 0.4 mg Vitamin B Complex/Vit C/Folic Acid (Nephro-Sumit) 1 tab PO 0800 [facility] Last Admin: 07/22/18 07:53 Dose: 1 tab - Labs Labs: 07/18/18 07:30 07/20/18 06:00
[2018-07-22 16:37] VITALS: RESP 18
--- NOTE | 2018-07-22 20:59 | PN ---
DATE: 07/22/2018 SUBJECTIVE: The patient is seen in room 304, bed 1. The patient is again seen lying in the bed. The patient is alert, awake, responsive. The patient was encouraged to be out of bed to chair. The patient appears to be comfortable in no distress. REVIEW OF SYSTEMS: A 14-system review was done, pertinent which was negative. PHYSICAL EXAMINATION VITAL SIGNS: T-max 98.8, pulse 91, 92, 94, blood pressure 108/67, 111/61, respiration 18, O2 sat 99%. HEENT: Head is normocephalic, atraumatic. HEENT examination shows pinkish pale conjunctivae. Anicteric sclerae. No oropharyngeal lesion. NECK: No neck rigidity. Chest: Kyphosis. CARDIOPULMONARY: Shows S1, S2, regular rhythm. Positive systolic murmur at the left sternal border, right second intercostal space, left second intercostal space. LUNGS: No audible crackle, rales or wheezing. ABDOMEN: Soft, protuberant. Positive bowel sounds. No palpable hepatosplenomegaly. GENITALIA: Male. RECTAL: Deferred. EXTREMITIES: Shows positive left foot dressing. No pitting edema noted. MUSCULOSKELETAL: Shows a body mass index of 24. Motor strength is 5/5 in upper and lower extremity. Gait examination is not tested.. PSYCHIATRIC: Negative. DIAGNOSTICS: Fingerstick blood sugar 199, 244, 198, 251, 147, 265. The patient's psychiatric examination is negative. CURRENT MEDICATIONS: 1. Aranesp 60 mcg weekly. 2. Colace 100 mg three times a day. 3. Drisdol 50,000 units weekly. 4. Ecotrin 81 mg daily. 5. Ferrous sulfate 324 mg twice a day. 6. Flomax 0.4 mg daily. 7. Heparin 5000 subcutaneously every 8. 8. Regular insulin medium dose sliding scale coverage. 9. Lipitor 20 mg daily. 10. Lopressor 25 mg twice a day. 11. Nephro-Sumit 1 tablet daily. 12. Pletal 50 mg twice a day. 13. Protonix 40 mg daily. 14. Tylenol 650 mg every 6 p.o. suppository p.r.n. 14. Zestril 2.5 mg daily. 15. Zofran 4 mg IV every 4 p.r.n. 16. Allopurinol 100 mg daily. IMPRESSION: 1. Deconditioning. 2. Gait dysfunction. 3. Acute renal failure, acute kidney injury secondary to nonsteroidal anti-inflammatory drug use. 4. Left foot gouty arthritis. 5. Left foot second digit amputation. 6. Left foot toes ulceration with fibrosis. 7. Left foot toe ulceration secondary to nonhealing second digit amputation. 8. Severe peripheral vascular disease. 9. Left foot cellulitis. 10. Pseudomonas aeruginosa and Klebsiella oxytoca, left foot diabetic ulceration and cellulitis. 11. Severe peripheral vascular disease. 12. Coagulase-negative Staphylococcus aureus bacteremia versus sepsis versus contamination. 13. Non-hemolyzed hyperkalemia. 14. Underlying chronic kidney disease. 15. Normocytic anemia. 16. Granulocytosis. 17. Uncontrolled diabetes mellitus with hemoglobin A1c of 7.3. 18. Hypercholesteremia with elevated LDL. 19. Hypovitaminosis D. 20. Anemia of chronic disease. 21. Uncontrolled diabetes mellitus with elevated hemoglobin A1c of 7.3 and elevated fructosamine of 330. 22. Early nephrotic range proteinuria of nephrotic syndrome serum and immunoelectrophoresis. 23. Hypertension. 24. Cardiomyopathy with left ventricular ejection fraction of 35%. 25. Pulmonary hypertension with right ventricular systolic pressure of 40 mmHg. 26. Dilated cardiomyopathy with moderately impaired left ventricular systolic function and global left ventricular hypokinesis with left ventricle ejection fraction of 35%. 27. Moderate to severe mitral regurgitation. 28. Mild aortic regurgitation. 29. Moderate tricuspid regurgitation with pulmonary hypertension. 30. Severe left lower extremity trifurcation tibial and pedal occlusive disease. 31. Status post successful left popliteal artery drug-eluting balloon angioplasty. 32. Constipation. 33. Urinary retention with elevated postvoid residual. 34. Hyperuricemia and gouty arthritis. PLAN: At present, the patient is to be continued on the therapeutic intervention. The patient will be continued to be monitored till approved number of TCU days with continuation of the daily physical therapy, occupational therapy, ambulation therapy, gait training. The patient has been seen and evaluated by the physical therapy on a daily basis. Physical therapy recommendations, discharge recommendation, home with services. Dictated and electronically signed, not read. Niranjan Ling MD [facility] # [id number]
[2018-07-23] MEDS: Pantoprazole 40 mg EC Tab PO SCH (06:02)
[2018-07-23] MEDS: Insulin Reg-MEDIUM-Coverage SC SCH ×4 (06:31→21:29)
[2018-07-23] MEDS: Multivitamin Vitamin B Complex (Nephro-Vite) Tab PO SCH (08:14)
--- NOTE | 2018-07-23 08:31 | CP.PCM.PN ---
Subjective - Date & Time of Evaluation Date of Evaluation: 07/23/18 Time of Evaluation: 08:29 - Subjective Subjective: Nephrology Consultation Note: Assessment: Stable Acute Kidney Injury (N17.9) ? etiology. 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 no new labs but kidney function stable on last check continue bp meds continue with iron and MVI. s/p aranesp CHF optimization as per PMD/cardiology Dose meds/antibiotics for reduced GFR. Avoid fleets enema/magnesium based laxatives. Avoid nephrotoxins/NSAIDs/ iodinated contrast (unless needed em ergently) Glycemic control Further work up/management as per primary team S: seen and examined no acute events o/n wnats to go home Physical Examination: General Appearance: Comfortable, in no acute respiratory distress, co-operative . Vitals reviewed and noted as below Head; Atraumatic, normocephalic ENT: no ulcers no thrush. Tongue is midline. Oropharynx: no rash or ulcers. EYES: Pupils are equal, round and reactive to light accommodation. Sclera is anicteric. Neck; supple no lymphadenopathy, no thyromegaly or bruit Lungs: Normal respiratory rate/effort. Breath sounds bilateral equal and clear Heart: Normal rate. s1s2 normal. No rub or gallop. Extremities: no edema. No varicose veins. Neurological: Patient is alert, awake and oriented to person, place and time. No focal deficit. Strength bilateral appropriate and equal Skin: Warm and dry. Normal turgor. No rash. Palpitation: Normal elasticity for age Abdomen: Abdomen is soft. Bowel sounds +. There is no abdominal tenderness, no guarding/rigidity no organomegaly Psych: lack insight and normal affect/mood MSK: no joint tenderness or swelling. Digits and nails normal, no deformity : kidney or bladder not palpable. Labs/imaging reviewed. Past medical history, past surgical history, family history, social history, allergy reviewed and noted as below Family hx: no hx of CKD. Rest non-contributory Objective - Vital Signs/Intake and Output Vital Signs (last 24 hours): Temp Pulse Resp BP Pulse Ox 98.8 F 94 H 18 93/55 L 99 07/22/18 16:00 07/22/18 17:21 07/22/18 16:00 07/23/18 08:14 07/22/18 16:00 Intake and Output: 07/23/18 07/23/18 06:59 18:59 Intake Total 380 Output Total 450 Balance -70 - Medications Medications: Current Medications Acetaminophen (Tylenol 650 Mg Supp) 650 mg RC Q6H PRN PRN Reason: Fever >100.4 F Acetaminophen (Tylenol 325mg Tab) 650 mg PO Q6H PRN; Protocol PRN Reason: Pain, moderate (4-7) Last Admin: 07/22/18 19:22 Dose: 650 mg Allopurinol (Zyloprim) 100 mg PO DAILY [facility] Last Admin: 07/22/18 10:11 Dose: 100 mg Aspirin (Ecotrin) 81 mg PO 0800 [facility] Last Admin: 07/23/18 08:14 Dose: 81 mg Atorvastatin Calcium (Lipitor) 20 mg PO DIN [facility] Last Admin: 07/22/18 17:21 Dose: 20 mg Cilostazol (Pletal) 50 mg PO BID [facility] Last Admin: 07/22/18 17:21 Dose: 50 mg Darbepoetin Arturo (Aranesp) 60 mcg SC QWK [facility] Last Admin: 07/21/18 11:07 Dose: 60 mcg Docusate Sodium (Colace) 100 mg PO TID [facility] Last Admin: 07/22/18 17:21 Dose: 100 mg Ergocalciferol (Drisdol 50,000 Intl Units Cap) 1 cap PO Q7D [facility] Last Admin: 07/21/18 17:38 Dose: 1 cap Ferrous Sulfate (Feosol) 324 mg PO BID [facility] Last Admin: 07/22/18 17:21 Dose: 324 mg Heparin Sodium (Porcine) (Heparin) 5,000 units SC Q8 [facility]; Protocol Last Admin: 07/23/18 06:01 Dose: 5,000 units Insulin Human Regular (Humulin R Med) 0 units SC ACHS [facility]; Protocol Last Admin: 07/23/18 06:31 Dose: 1 unit Lisinopril (Zestril) 2.5 mg PO DAILY [facility] Last Admin: 07/22/18 10:11 Dose: Not Given Metoprolol Tartrate (Lopressor) 25 mg PO 0800,1800 [facility] Last Admin: 07/23/18 08:14 Dose: Not Given Ondansetron HCl (Zofran Inj) 4 mg IVP Q4H PRN PRN Reason: Nausea/Vomiting Pantoprazole Sodium (Protonix Ec Tab) 40 mg PO 0600 [facility] Last Admin: 07/23/18 06:02 Dose: 40 mg Tamsulosin HCl (Flomax) 0.4 mg PO 1830 [facility] Last Admin: 07/22/18 17:43 Dose: 0.4 mg Vitamin B Complex/Vit C/Folic Acid (Nephro-Sumit) 1 tab PO 0800 [facility] Last Admin: 07/23/18 08:14 Dose: 1 tab - Labs Labs: 07/18/18 07:30 07/20/18 06:00
[2018-07-23] MEDS: Cilostazol 50 mg Tab UD PO SCH ×2 (09:28→17:29)
--- NOTE | 2018-07-23 10:55 | CP.PCM.PN ---
Subjective - Date & Time of Evaluation Date of Evaluation: 07/23/18 Time of Evaluation: 10:20 - Subjective Subjective: No fevers, not in distress, no pain in the feet or legs currently, no diarrhea. Objective - Vital Signs/Intake and Output Vital Signs (last 24 hours): Temp Pulse Resp BP Pulse Ox 98.7 F 91 H 20 111/61 98 07/21/18 09:23 07/22/18 07:55 07/21/18 09:23 07/21/18 17:35 07/21/18 09:23 Intake and Output: 07/22/18 07/22/18 06:59 18:59 Intake Total 420 Output Total 450 Balance -30 - Medications Medications: Current Medications Acetaminophen (Tylenol 650 Mg Supp) 650 mg RC Q6H PRN PRN Reason: Fever >100.4 F Acetaminophen (Tylenol 325mg Tab) 650 mg PO Q6H PRN; Protocol PRN Reason: Pain, moderate (4-7) Last Admin: 07/21/18 19:35 Dose: 650 mg Allopurinol (Zyloprim) 100 mg PO DAILY [facility] Last Admin: 07/22/18 10:11 Dose: 100 mg Aspirin (Ecotrin) 81 mg PO 0800 [facility] Last Admin: 07/22/18 07:53 Dose: 81 mg Atorvastatin Calcium (Lipitor) 20 mg PO DIN [facility] Last Admin: 07/21/18 17:24 Dose: 20 mg Cilostazol (Pletal) 50 mg PO BID [facility] Last Admin: 07/22/18 10:11 Dose: 50 mg Darbepoetin Arturo (Aranesp) 60 mcg SC QWK [facility] Last Admin: 07/21/18 11:07 Dose: 60 mcg Docusate Sodium (Colace) 100 mg PO TID [facility] Last Admin: 07/22/18 10:11 Dose: 100 mg Ergocalciferol (Drisdol 50,000 Intl Units Cap) 1 cap PO Q7D [facility] Last Admin: 07/21/18 17:38 Dose: 1 cap Ferrous Sulfate (Feosol) 324 mg PO BID [facility] Last Admin: 07/22/18 10:11 Dose: 324 mg Heparin Sodium (Porcine) (Heparin) 5,000 units SC Q8 [facility]; Protocol Last Admin: 07/22/18 05:45 Dose: 5,000 units Insulin Human Regular (Humulin R Med) 0 units SC ACHS [facility]; Protocol Last Admin: 07/22/18 12:11 Dose: 3 unit Lisinopril (Zestril) 2.5 mg PO DAILY [facility] Last Admin: 07/22/18 10:11 Dose: Not Given Metoprolol Tartrate (Lopressor) 25 mg PO 0800,1800 [facility] Last Admin: 07/22/18 07:55 Dose: 25 mg Ondansetron HCl (Zofran Inj) 4 mg IVP Q4H PRN PRN Reason: Nausea/Vomiting Pantoprazole Sodium (Protonix Ec Tab) 40 mg PO 0600 [facility] Last Admin: 07/22/18 05:50 Dose: 40 mg Tamsulosin HCl (Flomax) 0.4 mg PO 1830 [facility] Last Admin: 07/21/18 17:35 Dose: 0.4 mg Vitamin B Complex/Vit C/Folic Acid (Nephro-Sumit) 1 tab PO 0800 [facility] Last Admin: 07/22/18 07:53 Dose: 1 tab - Labs Labs: 07/18/18 07:30 07/20/18 06:00 - Constitutional Appears: Chronically Ill - Head Exam Head Exam: NORMAL INSPECTION - Respiratory Exam Respiratory Exam: Decreased Breath Sounds - Cardiovascular Exam Cardiovascular Exam: +S1, +S2 - GI/Abdominal Exam GI & Abdominal Exam: Soft. absent: Tenderness Assessment and Plan - Assessment and Plan (Free Text) Plan: Assessment S/P left foot cellulitis in this patient with severe PAD, S/P left popliteal stent placement, previously grew Pseudomonas and Klebsiella acute renal failure, slowly improving DM gout Plan continue to monitor off antibiotics since he is at risk for hospital-acquired infections discussed with Podiatry previously
--- NOTE | 2018-07-23 13:03 | CP.PCM.PN ---
Subjective - Date & Time of Evaluation Date of Evaluation: 07/23/18 Time of Evaluation: 13:03 - Subjective Subjective: Podiatry Progress Note for Dr. Milton Heller: 72M patient seen and evaluated at bedside for L foot ulceration secondary to non-healing second digit amputation and PAD. Patient resting comfortably, states that he wants to go home. No acute events overnight. Denies N/V/F/SOB/CP Objective - Vital Signs/Intake and Output Vital Signs (last 24 hours): Temp Pulse Resp BP Pulse Ox 98.8 F 94 H 18 93/55 L 99 07/22/18 16:00 07/22/18 17:21 07/22/18 16:00 07/23/18 08:14 07/22/18 16:00 Intake and Output: 07/23/18 07/23/18 06:59 18:59 Intake Total 380 Output Total 450 Balance -70 - Medications Medications: Current Medications Acetaminophen (Tylenol 650 Mg Supp) 650 mg RC Q6H PRN PRN Reason: Fever >100.4 F Acetaminophen (Tylenol 325mg Tab) 650 mg PO Q6H PRN; Protocol PRN Reason: Pain, moderate (4-7) Last Admin: 07/22/18 19:22 Dose: 650 mg Allopurinol (Zyloprim) 100 mg PO DAILY [facility] Last Admin: 07/23/18 09:29 Dose: 100 mg Aspirin (Ecotrin) 81 mg PO 0800 [facility] Last Admin: 07/23/18 08:14 Dose: 81 mg Atorvastatin Calcium (Lipitor) 20 mg PO DIN [facility] Last Admin: 07/22/18 17:21 Dose: 20 mg Cilostazol (Pletal) 50 mg PO BID [facility] Last Admin: 07/23/18 09:28 Dose: 50 mg Darbepoetin Arturo (Aranesp) 60 mcg SC QWK [facility] Last Admin: 07/21/18 11:07 Dose: 60 mcg Docusate Sodium (Colace) 100 mg PO TID [facility] Last Admin: 07/23/18 09:28 Dose: 100 mg Ergocalciferol (Drisdol 50,000 Intl Units Cap) 1 cap PO Q7D [facility] Last Admin: 07/21/18 17:38 Dose: 1 cap Ferrous Sulfate (Feosol) 324 mg PO BID [facility] Last Admin: 12/28/18 09:28 Dose: 324 mg Heparin Sodium (Porcine) (Heparin) 5,000 units SC Q8 [facility]; Protocol Last Admin: 07/23/18 06:01 Dose: 5,000 units Insulin Human Regular (Humulin R Med) 0 units SC ACHS [facility]; Protocol Last Admin: 07/23/18 12:42 Dose: 5 unit Lisinopril (Zestril) 2.5 mg PO DAILY [facility] Last Admin: 07/23/18 09:29 Dose: Not Given Metoprolol Tartrate (Lopressor) 25 mg PO 0800,1800 [facility] Last Admin: 07/23/18 08:14 Dose: Not Given Ondansetron HCl (Zofran Inj) 4 mg IVP Q4H PRN PRN Reason: Nausea/Vomiting Pantoprazole Sodium (Protonix Ec Tab) 40 mg PO 0600 [facility] Last Admin: 07/23/18 06:02 Dose: 40 mg Tamsulosin HCl (Flomax) 0.4 mg PO 1830 [facility] Last Admin: 07/22/18 17:43 Dose: 0.4 mg Vitamin B Complex/Vit C/Folic Acid (Nephro-Sumit) 1 tab PO 0800 [facility] Last Admin: 07/23/18 08:14 Dose: 1 tab - Labs Labs: 07/18/18 07:30 07/20/18 06:00 - Constitutional Appears: Well, Non-toxic, No Acute Distress - Head Exam Head Exam: ATRAUMATIC, NORMOCEPHALIC - Extremities Exam Additional comments: B/L lower extremity focused exam: Vascular: DP/PT non-palpable, CFT > 3 seconds to digits x9, TG warm to cool bilaterally, +1 edema appreciated to dorsal aspect of L foot in the first int erspace Ortho: Tenderness to palpation of gouty nodules to L foot, MMT 4/5, Right HAV deformity bilaterally, rigid 3rd digit HT to left Neuro: Gross sensation intact, protective sensation diminished Derm: Ulceration noted to first interspace on the L at the site of previous second digit amputation. Measuring about 0.5 x 0.5 x .1 cm, 100% fibrotic base, decreasing in size, mild serous drainage, no purulence, no tunneling appreciated, no probe to bone. - Neurological Exam Neurological Exam: Alert, Awake, Oriented x3 - Psychiatric Exam Psychiatric exam: Normal Affect, Normal Mood Assessment and Plan - Assessment and Plan (Free Text) Assessment: 72M patient with foot ulceration secondary to non-healing second digit amputation and PAD; ulceration site resolving Plan: Patient seen and evaluated at bedside Discussed in detail with Dr. Heller B/L ERYN US; no evidence of DVT L foot wound culture; Pseudomonas, Klebsiella F/U with ID reccs; continue to monitor off antibiotics since he is at risk for infections L foot x-rays taken; suspicious for OM at hallux, 1st met, 3rd and 4th mets. Diffuse degenerative joint disease throughout L foot, prior 2nd digit amp Lower extremity MRI ordered to rule out OM vs arthritic changes; findings suggestive of advanced gout arthritis. Skin ulcer adjacent to the 1st MTPJ. No evidence of abscess formation. No definitive evidence of OM Arterial US: FAHAD R 0.56, L 0.3; B/L distal SFA, politeal, and trifurcation; B/L tibial disease - Angio with Dr. Lujan. Severe left trifurcation, tibial, and pedal occlusive disease. Successful left popliteal artery drug-eluting balloon angioplasty. Uncertain with the extensive chronic distal occlusive disease whether ulceration will heal. Unfortunately revascularization options are limited. Continued wound care and possibly hyperbaric treatment may be useful. Local wound care; DSD. Patient instructed to keep foot dressing c/d/i and educa german on how to do dressing changes at home. Patient stable from podiatry stand point, pending d/c patient to f/u in Dr. Milton Heller's office within the week of discharge for continued wound care
[2018-07-23 16:58] VITALS: PULSE 102; TEMP 98.5; O2SAT 97
--- NOTE | 2018-07-23 20:25 | PN ---
DATE: 07/23/2018 SUBJECTIVE: The patient is seen again lying in room 304. Overnight nurse's notes were reviewed. No adverse events were documented. OBJECTIVE: VITAL SIGNS: T-max 98.8; heart rate 94, 92; blood pressure 108/67; respiration 18; O2 sat 99%. HEAD: Normocephalic, atraumatic. HEENT: Pinkish pale conjunctivae. Anicteric sclerae. No oropharyngeal lesion. NECK: No neck rigidity. CHEST: Kyphosis. LUNGS: No audible crackle, rales or wheezing. CARDIOVASCULAR: S1, S2, regular rhythm. Questionable soft systolic murmur left sternal border, right second intercostal space, left second intercostal space. ABDOMEN: Soft, positive bowel sound. No palpable hepatosplenomegaly. GENITALIA: Male. RECTAL: Deferred. EXTREMITY: No pitting edema, no calf tenderness, no Najma's signs. Positive dressing of the left foot noted. MUSCULOSKELETAL: Body mass index of 24. DIAGNOSTICS: None. LABORATORY DATA: Fingerstick blood sugar 283, 198, 234, 199, 244, 198. IMPRESSION: 1. Deconditioning. 2. Gait dysfunction. 3. Jnx-bzzrcuq-qvtfkwsaa diabetes mellitus. 4. Left foot toes ulceration secondary to nonhealing second digit amputation and peripheral arterial disease. 5. Left foot and toe cellulitis with severe peripheral vascular disease. 6. Left foot toes Pseudomonas aeruginosa, Klebsiella oxytoca diabetic foot ulceration. 7. Coagulase-negative Staphylococcus aureus bacteremia or sepsis versus contamination. 8. Normocytic anemia. 9. Possible nonsteroidal anti-inflammatory drug induced acute kidney injury with use of . 10. Non-hemolyzed hyperkalemia. 11. Metabolic acidosis. 12. Hypertensive diabetic chronic kidney disease. 13. Chronic kidney disease stage III without proteinuria. 14. Anemia. 15. Dilated cardiomyopathy with ejection fraction of 35%. 16. Moderately impaired left ventricular systolic function with left ventricular global hypokinesis with left ventricle ejection fraction of 35%. 17. Pulmonary hypertension with right ventricular systolic pressure of 40 mmHg. 18. Mild aortic regurgitation. 19. Ukvqlwxx-ad-wtfhmc mitral regurgitation. 20. Moderate tricuspid regurgitation. 21. Pulmonary hypertension. 22. Status post abdominal aortogram and selective left lower extremity arteriogram. 23. Status post successful left popliteal artery drug-eluting balloon angioplasty. 24. Severe left lower extremity, left trifurcation, left tibial and pedal occlusive disease. 25. Left axis deviation. 26. Constipation. 27. Hypovitaminosis D. 28. Urinary retention with increased postvoid residual. 29. Hyperlipidemia. 30. Peripheral vascular disease. 31. Hyperuricemia. PLAN: At this time, the patient is to be continued on Transitional Care Unit till approved number of days. The patient will be considered for discharge after completion of the Transitional Care Unit days. The patient has been updated about his condition, diagnosis, treatment plan, management plan, outpatient followup at length and all questions concerned answered in layman's language and all questions concerned answered, which he acknowledged and understand. Dictated and electronically signed, not read. Niranjan Ling MD
[2018-07-24] MEDS: Pantoprazole 40 mg EC Tab PO SCH (05:43)
[2018-07-24] MEDS: Insulin Reg-MEDIUM-Coverage SC SCH ×2 (07:04→12:09)
[2018-07-24] MEDS: Multivitamin Vitamin B Complex (Nephro-Vite) Tab PO SCH (08:04)
[2018-07-24 08:05] VITALS: BP 112/71
[2018-07-24] MEDS: Cilostazol 50 mg Tab UD PO SCH (09:10)
--- NOTE | 2018-07-24 15:14 | PN ---
DATE: 07/24/2018 SUBJECTIVE: The patient is in bed, in no acute distress, nontoxic. No fevers or chills. Doing well. PHYSICAL EXAMINATION: VITAL SIGNS: Temperature is 98, blood pressure is 101/60, respiratory rate of 18, heart rate of 102. HEENT: Unremarkable. NECK: Supple. LUNGS: Have decreased breath sounds. HEART: S1 and S2. ABDOMEN: Soft and nontender. LABORATORY DATA: Reveals a white count of 9, hemoglobin of 9, BUN of 41, creatinine of 1.9. Microbiology is noted. Review of orders reveals the patient is off of antibiotics. ASSESSMENT AND PLAN: This is a 72-year-old male status post left foot cellulitis and severe peripheral arterial disease, left popliteal stent placement, diabetic and gout and acute renal failure, and is currently off of antibiotics. He is afebrile. The patient is at risk for developing nosocomial infection. Tai Landaverde MD
--- NOTE | 2018-07-24 21:42 | DS ---
HISTORY OF PRESENT ILLNESS: The patient is seen in room 304, bed 1. Patient is lying in the bed, comfortable. Overnight nurse's notes were reviewed. PHYSICAL EXAMINATION: VITAL SIGNS: T-max is 98.4 to 98.5, heart rate 85, 94, 92, blood pressure 112/71, respiration 18, O2 sat 97%. HEENT: Head is normocephalic, atraumatic. HEENT examination shows pinkish pale conjunctivae. Anicteric sclerae. No oropharyngeal lesion. NECK: No neck rigidity. CHEST: Kyphosis. LUNGS: Shows no audible crackle, rales or wheezing. CARDIOVASCULAR: Shows S1, S2, regular rhythm. Positive systolic murmur at the left sternal border, right second intercostal space, left second intercostal space. ABDOMEN: Soft. Positive bowel sound. No palpable hepatosplenomegaly. GENITALIA: Male. RECTAL: Deferred. EXTREMITIES: Shows no pitting edema. No calf tenderness. No Homans' sign. Positive dressing of the left foot toe noted. MUSCULOSKELETAL: Shows a body mass index of 22.4. NEUROLOGIC: Cranial nerves II-XII intact. Gait examination is not tested. DIAGNOSTICS: Fingerstick blood sugar 316, 206 187, 281, 283, 198. FINAL IMPRESSION AND DISCHARGE DIAGNOSES: 1. Deconditioning. 2. Gait dysfunction. 3. Left foot toe cellulitis and diabetic ulceration with severe peripheral vascular disease. 4. Status post left popliteal artery stenting and drug-eluting stent placement. 5. Diabetic foot ulceration. 6. Severe gouty arthritis. 7. Acute kidney injury with underlying chronic kidney disease stage III. 8. Status post non-hemolyzed hyperkalemia. 9. Hypertension. 10. Xop-dqjdhff-npnjafgep diabetes mellitus. 11. Left foot toe diabetic ulceration secondary to nonhealing second digit amputation and peripheral vascular disease. 12. Left foot toes Pseudomonas aeruginosa, Klebsiella oxytoca, diabetic foot ulceration. 13. Questionable coagulase-negative Staphylococcus aureus bacteremia versus sepsis versus contamination. 14. Normocytic anemia. 15. Acute kidney injury secondary to possible nonsteroidal anti-inflammatory drug use. 16. Non-hemolyzed hyperkalemia. 17. Metabolic acidosis. 18. Constipation. 19. Dilated cardiomyopathy with ejection fraction of 35%. 20. Hypertensive and diabetic chronic kidney disease. 21. Chronic kidney disease stage III without proteinuria. 22. Anemia. 23. Dilated cardiomyopathy with ejection fraction of 35% and moderately impaired left ventricular systolic function and left ventricular global hypokinesis. 24. Pulmonary hypertension with right ventricular systolic pressure of 40 mmHg. 25. Mild aortic regurgitation. 26. Cpdswsef-lv-dbrafx mitral regurgitation. 27. Moderate tricuspid regurgitation. 28. Pulmonary hypertension. 29. Status post abdominal aortogram and selective left lower extremity arteriogram. 30. Status post successful left popliteal artery drug-eluting balloon angioplasty. 31. Severe left lower extremity, left trifurcation, left tibial and pedal occlusive disease. 32. Left axis deviation. 33. Hypovitaminosis D. 34. Urinary retention with increased postvoid residual. 35. Hyperlipidemia. 36. Hyperuricemia. PLAN: At this time, the patient was discharged home. The patient was advised discharge followup with Dr. Ling within 1 week. Discharge followup with podiatry within 1 week. Discharge medications as per updated ambulatory orders and new scripts. The patient's case was referred for clinical nurse educator. The patient was given a copy of the diabetic diet. DISCHARGE MEDICATIONS: The patient's discharge medications as follows, allopurinol 100 mg daily, Ecotrin 81 mg daily, Lipitor 20 mg daily, Pletal 50 mg twice a day, Lotrisone cream to the affected area twice a day, Colace 100 mg three times a day, Drisdol 50,000 units weekly, ferrous sulfate 324 mg twice a day, glipizide 10 mg twice a day, Lopressor 25 mg twice a day, Protonix 40 mg daily, Flomax 1 tablet daily, Nephro-Sumit 1 tablet daily. During this hospitalization, the patient was extensively explained about the details of his medical condition, diagnostic test results, all detailed diagnosis was explained during the hospitalization from 07/12/2018 through 07/16/2018 and 07/16/2018 to 07/24/2018. All was explained to the patient in layman's language. All questions concerned answered. Time spent in the entire discharge process was 45 minutes. Dictated and electronically signed, not read. Niranjan Ling MD
== END 2018-07-24 13:55 | disposition home or self-care (01) | DRG 92 ==
LOC: TRCU 17:17
PROVIDERS: ADMIT Internal Medicine; ATTEND Internal Medicine
PROC: F07Z9FZ Gait Training/Functional Ambulation Treatment using Assistive, Adaptive, Supportive or Protective Equipment (ICD-10-PCS; principal; 2018-07-19)
PROC: F07L6YZ Therapeutic Exercise Treatment of Musculoskeletal System - Lower Back / Lower Extremity using Other Equipment (ICD-10-PCS; 2018-07-19)
PROC: F07Z5ZZ Bed Mobility Treatment (ICD-10-PCS; 2018-07-19)
PROC: F07Z8ZZ Transfer Training Treatment (ICD-10-PCS; 2018-07-19)
PROC: F08Z1ZZ Dressing Techniques Treatment (ICD-10-PCS; 2018-07-21)
PROC: F08Z0ZZ Bathing/Showering Techniques Treatment (ICD-10-PCS; 2018-07-22)
PROC: F08Z2ZZ Grooming/Personal Hygiene Treatment (ICD-10-PCS; 2018-07-22)
DX: R26.9 Unspecified abnormalities of gait and mobility (principal); I13.0 Hypertensive heart and chronic kidney disease with heart failure and stage 1 through stage 4 chronic kidney disease, or unspecified chronic kidney disease; I50.20 Unspecified systolic (congestive) heart failure; L03.116 Cellulitis of left lower limb; I42.0 Dilated cardiomyopathy; E87.2 Acidosis; N04.9 Nephrotic syndrome with unspecified morphologic changes; M1A.0721 Idiopathic chronic gout, left ankle and foot, with tophus (tophi); E11.22 Type 2 diabetes mellitus with diabetic chronic kidney disease; N18.3 Chronic kidney disease, stage 3 (moderate); L03.032 Cellulitis of left toe; E11.621 Type 2 diabetes mellitus with foot ulcer; L97.529 Non-pressure chronic ulcer of other part of left foot with unspecified severity; E11.51 Type 2 diabetes mellitus with diabetic peripheral angiopathy without gangrene; D63.8 Anemia in other chronic diseases classified elsewhere; E11.65 Type 2 diabetes mellitus with hyperglycemia; E87.5 Hyperkalemia; I08.3 Combined rheumatic disorders of mitral, aortic and tricuspid valves; E55.9 Vitamin D deficiency, unspecified; E78.5 Hyperlipidemia, unspecified; E78.00 Pure hypercholesterolemia, unspecified; K59.00 Constipation, unspecified; I27.20 Pulmonary hypertension, unspecified; R33.9 Retention of urine, unspecified; B96.5 Pseudomonas (aeruginosa) (mallei) (pseudomallei) as the cause of diseases classified elsewhere; Z79.84 Long term (current) use of oral hypoglycemic drugs; Z95.820 Peripheral vascular angioplasty status with implants and grafts; Z89.422 Acquired absence of other left toe(s)

== ENCOUNTER 2018-11-16 11:23 | Inpatient (IN) | payer MEDICARE ==
[2018-11-16 11:31] VITALS: BMI 25.0
[2018-11-16] MEDS ORDERED: Vancomycin 1gm in NS 250ml 1 GM/250 ML BAG IVPB STA (11:42)
[2018-11-16] MEDS ORDERED: Piperacillin/Tazobact 3.375 gm 100 ML IVPB STA (11:42)
--- NOTE | 2018-11-16 11:48 | ED PDOC ---
Arrival/HPI - General Chief Complaint: Lower Extremity Problem/Injury Time Seen by Provider: 11/16/18 11:31 Historian: Patient - History of Present Illness Narrative History of Present Illness (Text): 11/16/18 11:44 A 73 year old male, whose past medical history includes diabetes mellitus, gout, and dilated cardiomyopathy with ejection fraction of 35%, presents to the emergency department with a complaint of left foot pain. Patient with bandages on left foot. The patient reports pain for rthe past 2 months. HPI/ ROS limited due to patient's mental status. Time/Duration: Other (2 months) Symptom Onset: Sudden Symptom Course: Unchanged Activities at Onset: Rest, Light Context: Home Past Medical History - Provider Review Nursing Documentation Reviewed: Yes - Infectious Disease Hx of Infectious Diseases: None - Cardiac Hx Cardiac Disorders: Yes Hx Hypertension: Yes - Pulmonary Hx Respiratory Disorders: No - Neurological Hx Neurological Disorder: No - HEENT Hx HEENT Disorder: Yes (eyeglasses) - Renal Hx Renal Disorder: No - Endocrine/Metabolic Hx Diabetes Mellitus Type 1: Yes - Hematological/Oncological Hx Blood Disorders: No - Integumentary Hx Dermatological Disorder: Yes Other/Comment: +1 edema left foot/ankle pitting, left foot 2nd toe amputated, foot red ,swollen, painful, thick toenails. r ft +1 ankle edema, bunyons and great toes crooked b/l - Musculoskeletal/Rheumatological Hx Falls: No - Gastrointestinal Hx Gastrointestinal Disorders: No - Genitourinary/Gynecological Hx Genitourinary Disorders: No - Psychiatric Hx Psychophysiologic Disorder: No Hx Substance Use: No - Surgical History Other/Comment: Hernia repair. Foot surgery. L foot 2nd toe amputation - Anesthesia Hx Anesthesia: Yes Hx Anesthesia Reactions: No Hx Malignant Hyperthermia: No Family/Social History - Physician Review Nursing Documentation Reviewed: Yes Family/Social History: No Known Family HX Smoking Status: Unknown If Ever Smoked Hx Alcohol Use: No Hx Substance Use: No Allergies/Home Meds Allergies/Adverse Reactions: Allergies No Known Allergies Allergy (Verified 11/16/18 11:31) Home Medications: Home Meds Medication Instructions Recorded Confirmed Clotrimazole/Betamethasone 1 applic TOP BID 07/16/18 07/16/18 [Lotrisone] Review of Systems - Physician Review All systems were reviewed & negative as marked: Yes - Review of Systems Constitutional: absent: Fevers Respiratory: absent: SOB, Cough Cardiovascular: absent: Chest Pain, SALGADO Gastrointestinal: absent: Abdominal Pain, Stool Changes, Diarrhea, Nausea, Vomiting Genitourinary Male: absent: Urinary Output Changes Musculoskeletal: absent: Back Pain, Neck Pain Skin: Other (Left foot errythema, pain, drainage.) Neurological: absent: Headache, Dizziness Physical Exam Vital Signs Reviewed: Yes Vital Signs Temp Pulse Resp BP Pulse Ox 11/16/18 11:32 98.4 F 108 H 18 138/70 98 Temperature: Afebrile Blood Pressure: Normal Pulse: Tachycardic Respiratory Rate: Normal Appearance: Positive for: Well-Appearing, Non-Toxic, Comfortable Pain Distress: None Mental Status: Positive for: Alert and Oriented X 3 - Systems Exam Head: Present: Atraumatic, Normocephalic Pupils: Present: PERRL Extroacular Muscles: Present: EOMI Conjunctiva: Present: Normal Mouth: Present: Moist Mucous Membranes Neck: Present: Normal Range of Motion Respiratory/Chest: Present: Clear to Auscultation, Good Air Exchange. No: Respiratory Distress, Accessory Muscle Use Cardiovascular: Present: Regular Rate and Rhythm, Normal S1, S2. No: Murmurs Abdomen: No: Tenderness, Distention, Peritoneal Signs Back: Present: Normal Inspection Upper Extremity: Present: Normal Inspection. No: Cyanosis, Edema Lower Extremity: Present: Erythema (Left foot. ), Other (Significant amount of purulent discharge. Foul stench. Multiple ulcerations to the left foot. ). No: Edema Neurological: Present: GCS=15, CN II-XII Intact, Speech Normal Skin: Present: Warm, Dry, Normal Color. No: Rashes Psychiatric: Present: Alert, Oriented x 3, Normal Insight, Normal Concentration Medical Decision Making ED Course and Treatment: Impression: A 73 year old male presents to the emergency department with a complaint of left foot pain, redness, and drainage. Plan: -- Left Foot X- ray -- Blood Culture -- Labs -- Vancomycin and Zosyn -- Reassess and disposition Prior Visits: Notes and results from previous visits were reviewed. Progress Notes: 11/16/18 11:48: Case discussed with podiatry resident. EKG shows Sinus Tachycardia at 104 BPM. PROCEDURE: Left Foot Radiographs. Dictator : Vincent Harrison MD Report Date : 11/16/2018 15:49:03 IMPRESSION: There is bony destruction and sclerosis around the 1st MTP joint. This is consistent with chronic osteomyelitis. Previous partial amputation at the level of the 2nd proximal phalanx. Severe degenerative changes in the midfoot. Findings are unchanged 11/16/18 17:22 cellulits, seen by podiatry bedside. saw by pmd . needs admission. xr pending. - Lab Interpretations I have reviewed the lab results: Yes - Scribe Statement The provider has reviewed the documentation as recorded by the Warrenibsara Wei Provider Scribe Attestation: All medical record entries made by the Scribe were at my direction and personally dictated by me. I have reviewed the chart and agree that the record accurately reflects my personal performance of the history, physical exam, medical decision making, and the department course for this patient. I have also personally directed, reviewed, and agree with the discharge instructions and disposition. Disposition/Present on Arrival - Present on Arrival Any Indicators Present on Arrival: No History of DVT/PE: No History of Uncontrolled Diabetes: No Urinary Catheter: No History of Decub. Ulcer: No History Surgical Site Infection Following: None - Disposition Have Diagnosis and Disposition been Completed?: Yes Diagnosis: Osteomyelitis, Cellulitis Disposition: HOSPITALIZED Disposition Time: 16:00 Condition: STABLE
--- NOTE | 2018-11-16 12:48 | CP.PCM.CON ---
Past Patient History - Infectious Disease Hx of Infectious Diseases: None - Past Social History Smoking Status: Unknown If Ever Smoked - CARDIAC Hx Cardiac Disorders: Yes Hx Hypertension: Yes - PULMONARY Hx Respiratory Disorders: No - NEUROLOGICAL Hx Neurological Disorder: No - HEENT Hx HEENT Problems: Yes (eyeglasses) - RENAL Hx Chronic Kidney Disease: No - ENDOCRINE/METABOLIC Hx Diabetes Mellitus Type 1: Yes - HEMATOLOGICAL/ONCOLOGICAL Hx Blood Disorders: No - INTEGUMENTARY Hx Dermatological Problems: Yes Other/Comment: +1 edema left foot/ankle pitting, left foot 2nd toe amputated, foot red ,swollen, painful, thick toenails. r ft +1 ankle edema, bunyons and great toes crooked b/l - MUSCULOSKELETAL/RHEUMATOLOGICAL Hx Falls: No - GASTROINTESTINAL Hx Gastrointestinal Disorders: No - GENITOURINARY/GYNECOLOGICAL Hx Genitourinary Disorders: No - PSYCHIATRIC Hx Psychophysiologic Disorder: No Hx Substance Use: No - SURGICAL HISTORY Other/Comment: Hernia repair. Foot surgery. L foot 2nd toe amputation - ANESTHESIA Hx Anesthesia: Yes Hx Anesthesia Reactions: No Hx Malignant Hyperthermia: No Meds Allergies/Adverse Reactions: Allergies Allergy/AdvReac Type Severity Reaction Status Date / Time No Known Allergies Allergy Verified 11/16/18 11:31 - Medications Medications: Current Medications Vancomycin HCl (Vancomycin 1gm) 1 gm in 250 mls @ 167 mls/hr IVPB STAT STA; Protocol Stop: 11/16/18 13:11 Results - Vital Signs Recent Vital Signs: Last Vital Signs Temp 98.4 F 11/16/18 11:32 Pulse 108 H 11/16/18 11:32 Resp 18 11/16/18 11:32 BP 138/70 11/16/18 11:32 Pulse Ox 98 11/16/18 11:32 - Labs Result Diagrams: 11/16/18 12:40 11/16/18 12:40 Assessment & Plan - Assessment and Plan (Free Text) Assessment: 73 y/o male patient seen and evaluated for left foot wound with cellulitis Plan: Patient seen and evaluated with Dr. Milton Heller Plan discussed with Dr. Heller Chart, labs and vitals reviewed- WBC 16.2 Left Foot X-ray: chronic osteo, no soft tissue emphysema noted at this time Wound Culture Ordered FAHAD/PVR: pending final read Ordered Left foot MRI Infectious disease consult, recommendations appreciated Wound dressed with wet to dry saline dressing Podiatry will continue to follow patient while in house - Date & Time Date: 11/16/18 Time: 16:09
[2018-11-16 13:15] LABS: BASO # 0.02 K/mm3 (0.0-2.0); BASO % 0.1 % (0.0-3.0); EOS % 0.1 % (1.5-5.0); HEMOGLOBIN 10.3 g/dL (14.0-18.0); LYMPH # 0.9 (1.2-3.4); LYMPH % 5.6 % (22.0-35.0); MEAN CELL VOLUME 100.3 fl (80.0-105.0); MEAN CORPUSCULAR HEMOGLOBIN 32.7 pg (25.0-35.0); MEAN CORPUSCULAR HGB CONC 32.6 g/dl (31.0-37.0); MEAN PLATELET VOLUME 10.2 fl (7.0-11.0); MONO # 1.8 (0.1-0.6); RBC 3.15 10^6/uL (3.5-6.1); RED CELL DISTRIBUTION WIDTH 15.6 % (11.5-14.5); WHITE BLOOD COUNT 16.2 10^3/uL (4.5-11.0)
[2018-11-16 13:24] LABS: ALB/GLOB RATIO 1.2 (1.1-1.8); ALBUMIN 4.2 g/dL (3.0-4.8); CALCIUM 9.6 mg/dL (8.4-10.5)
[2018-11-16 13:25] LABS: INR 1.21; PARTIAL THROMBOPLASTIN TIME 28.3 Seconds (26.9-38.3); PROTHROMBIN TIME 13.7 SECONDS (9.4-12.5)
[2018-11-16] MEDS ORDERED: Dextrose 50% SYRINGE Inj (50 ml) IV PRN ×2 (13:49→13:57)
[2018-11-16] MEDS ORDERED: Ergocalciferol 50,000 Intl Units Cap PO SCH (14:00)
--- NOTE | 2018-11-16 15:49 | RAD ---
Date of service: 11/16/2018 HISTORY: ?OM LEFT FOOT COMPARISON: 07/12/2018 TECHNIQUE: Chest PA and lateral views FINDINGS: LUNGS: No active pulmonary disease. PLEURA: No significant pleural effusion identified. No pneumothorax apparent. CARDIOVASCULAR: Aortic calcification Normal cardiac size. No pulmonary vascular congestion. OSSEOUS STRUCTURES: No significant abnormalities. VISUALIZED UPPER ABDOMEN: Normal. OTHER FINDINGS: None. IMPRESSION: No active disease.
--- NOTE | 2018-11-16 15:52 | RAD ---
Date of service: 11/16/2018 PROCEDURE: Left Foot Radiographs. HISTORY: celllultis osteo COMPARISON: 07/12/2018 TECHNIQUE: 3 views obtained. FINDINGS: BONES: There is bony destruction and sclerosis around the 1st MTP joint. This is consistent with chronic osteomyelitis. Previous partial amputation at the level of the 2nd proximal phalanx. Severe degenerative changes in the midfoot. Findings are unchanged JOINTS: Normal. SOFT TISSUES: Normal. OTHER FINDINGS: None. IMPRESSION: There is bony destruction and sclerosis around the 1st MTP joint. This is consistent with chronic osteomyelitis. Previous partial amputation at the level of the 2nd proximal phalanx. Severe degenerative changes in the midfoot. Findings are unchanged
--- NOTE | 2018-11-16 16:42 | US ---
PROCEDURE: Lower extremity FAHAD exam HISTORY: Peripheral vascular disease with pain and ulceration. Diabetes. Previous smoker. Second toe amputation PHYSICIAN(S): Milton Lujan MD. FINDINGS: The resting FAHAD's are moderately abnormal: Right, 0.60 and left, 0.56 The brachial systolic pressures are symmetric. The high thigh pressures and waveforms are relatively normal. The calf PVR waveforms augment normally. No significant gradients are noted across the thighs. There is a 30 mm gradient across the right knee and a 61 mm gradient across the left knee. The ankle and metatarsal PVR waveforms are moderately blunted. Findings are consistent with bilateral popliteal, trifurcation, and/or tibial disease. IMPRESSION: 1. Moderately abnormal resting ABIs. 2. Bilateral popliteal, trifurcation, and/or tibial disease
--- NOTE | 2018-11-16 16:43 | CP.PCM.HP ---
<Evans Waterman - Last Filed: 11/16/18 17:04> History of Present Illness - History of Present Illness History of Present Illness: Evans Waterman PGY2 IM H&P Note for Dr. Rodríguez cc: left foot pain Mr. Mary is a 73 year old male with a PMH of PAD s/p 2nd left toe amputation (09/2017), DM2, CHFrEF, gout and arthritis who presented for left foot pain x2 months, but recently worsening. Patient states that he lives with his son Herve, and it is his son who convinced him to come to ED to be seen. 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 HE denies any fevers/chills, proximal leg pain or trouble ambulating. 12 point ROS obtained and neg, except as per HPI. PMH: PAD s/p 2nd toe amputation (09/2017), DM2, CHFrEF, gout and arthritis PSH: 2nd left toe amputation (09/2017), hernia repair Meds: reviewed, as per MAR Allergies: NKDA SHx: former tobacco and alcohol user, quit 5 years ago. lives w/ son. Walks with a cane. FHx: reviewed, noncontributory Present on Admission - Present on Admission Any Indicators Present on Admission: No Review of Systems - Review of Systems All systems: reviewed and no additional remarkable complaints except (as per HPI) Past Patient History - Infectious Disease Hx of Infectious Diseases: None - Past Social History Smoking Status: Unknown If Ever Smoked - CARDIAC Hx Cardiac Disorders: Yes Hx Hypertension: Yes - PULMONARY Hx Respiratory Disorders: No - NEUROLOGICAL Hx Neurological Disorder: No - HEENT Hx HEENT Problems: Yes (eyeglasses) - RENAL Hx Chronic Kidney Disease: No - ENDOCRINE/METABOLIC Hx Diabetes Mellitus Type 1: Yes - HEMATOLOGICAL/ONCOLOGICAL Hx Blood Disorders: No - INTEGUMENTARY Hx Dermatological Problems: Yes Other/Comment: +1 edema left foot/ankle pitting, left foot 2nd toe amputated, foot red ,swollen, painful, thick toenails. r ft +1 ankle edema, bunyons and great toes crooked b/l - MUSCULOSKELETAL/RHEUMATOLOGICAL Hx Falls: No - GASTROINTESTINAL Hx Gastrointestinal Disorders: No - GENITOURINARY/GYNECOLOGICAL Hx Genitourinary Disorders: No - PSYCHIATRIC Hx Psychophysiologic Disorder: No Hx Substance Use: No - SURGICAL HISTORY Other/Comment: Hernia repair. Foot surgery. L foot 2nd toe amputation - ANESTHESIA Hx Anesthesia: Yes Hx Anesthesia Reactions: No Hx Malignant Hyperthermia: No Meds Allergies/Adverse Reactions: Allergies Allergy/AdvReac Type Severity Reaction Status Date / Time No Known Allergies Allergy Verified 11/16/18 18:45 Physical Exam - Constitutional Appears: Well, Non-toxic, No Acute Distress - Head Exam Head Exam: ATRAUMATIC, NORMAL INSPECTION - Eye Exam Eye Exam: EOMI, Normal appearance, PERRL Pupil Exam: NORMAL ACCOMODATION, PERRL - ENT Exam ENT Exam: Mucous Membranes Moist, Normal Exam - Neck Exam Neck exam: Positive for: Full Rom, Normal Inspection - Respiratory Exam Respiratory Exam: Clear to Auscultation Bilateral, NORMAL BREATHING PATTERN - Cardiovascular Exam Cardiovascular Exam: REGULAR RHYTHM, +S1, +S2 - GI/Abdominal Exam GI & Abdominal Exam: Normal Bowel Sounds, Soft. absent: Tenderness - Extremities Exam Additional comments: left foot newly dressed by podiatry c/d/i could not manually palpate left foot pulses (DP/PT) - Back Exam Back exam: NORMAL INSPECTION - Neurological Exam Neurological exam: Alert, CN II-XII Intact, Normal Gait, Oriented x3, Reflexes Normal - Skin Skin Exam: Dry, Intact, Normal Color, Warm Results - Vital Signs Recent Vital Signs: Last Vital Signs Temp 98.4 F 11/16/18 11:32 Pulse 108 H 11/16/18 11:32 Resp 18 11/16/18 11:32 BP 138/70 11/16/18 11:32 Pulse Ox 98 11/16/18 11:32 - Labs Result Diagrams: 11/16/18 12:40 11/16/18 12:40 Labs: Laboratory Results - last 24 hr 11/16/18 11/16/18 11/16/18 12:40 12:40 12:40 WBC 16.2 H D RBC 3.15 L Hgb 10.3 L Hct 31.6 L MCV 100.3 MCH 32.7 MCHC 32.6 RDW 15.6 H Plt Count 322 MPV 10.2 Neut % (Auto) 83.2 H Lymph % (Auto) 5.6 L Dukes % (Auto) 11.0 H Eos % (Auto) 0.1 L Baso % (Auto) 0.1 Lymph # (Auto) 0.9 L Dukes # (Auto) 1.8 H Eos # (Auto) 0.0 Baso # (Auto) 0.02 Absolute Neuts (auto) 13.49 H ESR 122 H PT 13.7 H INR 1.21 APTT 28.3 Sodium 139 Potassium 4.7 Chloride 102 Carbon Dioxide 25 Anion Gap 18 BUN 46 H Creatinine 2.2 H Est GFR ( Amer) 36 Est GFR (Non-Af Amer) 29 Random Glucose 230 H Uric Acid Calcium 9.6 Total Bilirubin 1.7 H AST 70 H D ALT 23 Alkaline Phosphatase 81 Total Protein 7.6 Albumin 4.2 Globulin 3.4 Albumin/Globulin Ratio 1.2 11/16/18 13:00 WBC RBC Hgb Hct MCV MCH MCHC RDW Plt Count MPV Neut % (Auto) Lymph % (Auto) Dukes % (Auto) Eos % (Auto) Baso % (Auto) Lymph # (Auto) Dukes # (Auto) Eos # (Auto) Baso # (Auto) Absolute Neuts (auto) ESR PT INR APTT Sodium Potassium Chloride Carbon Dioxide Anion Gap BUN Creatinine Est GFR ( Amer) Est GFR (Non-Af Amer) Random Glucose Uric Acid 7.5 Calcium Total Bilirubin AST ALT Alkaline Phosphatase Total Protein Albumin Globulin Albumin/Globulin Ratio Assessment & Plan - Assessment and Plan (Free Text) Assessment: 73 year old male with a PMH of PAD s/p 2nd left toe amputation (09/2017), DM2, CHFrEF, gout and arthritis who presented for left foot pain x2 months, but recently worsening. Given hx of PAD, will need to evaluate patient for osteomyelitis vs cellulitis. Plan: - LE Duplex ordered to evaluate for FAHAD's - L foot MRI ordered to evaluate for osteomyelitis - Podiatry and ID are consulted, recs appreciated - cont Abx per ID recs - restart home meds - Heparin for DVT ppx - PPI for GI ppx - further recs per Dr. Rodríguez Case was reviewed with Dr. Rodríguez <Niranjan Rodríguez - Last Filed: 12/13/18 14:29> Results - Vital Signs Recent Vital Signs: Last Vital Signs Temp 98.3 F 12/12/18 14:00 Pulse 94 H 12/12/18 14:00 Resp 17 12/12/18 14:00 BP 93/57 L 12/12/18 14:00 Pulse Ox 99 12/12/18 14:00 - Labs Result Diagrams: 12/13/18 07:00 12/13/18 07:00 Labs: Laboratory Results - last 24 hr 12/12/18 12/12/18 12/13/18 16:24 21:31 06:28 WBC RBC Hgb Hct MCV MCH MCHC RDW Plt Count MPV Neut % (Auto) Lymph % (Auto) Dukes % (Auto) Eos % (Auto) Baso % (Auto) Lymph # (Auto) Dukes # (Auto) Eos # (Auto) Baso # (Auto) Absolute Neuts (auto) Sodium Potassium Chloride Carbon Dioxide Anion Gap BUN Creatinine Est GFR ( Amer) Est GFR (Non-Af Amer) POC Glucose (mg/dL) 109 198 H 171 H Random Glucose Calcium Phosphorus Magnesium Total Bilirubin Direct Bilirubin AST ALT Alkaline Phosphatase Total Protein Albumin Globulin Albumin/Globulin Ratio 12/13/18 12/13/18 12/13/18 07:00 07:00 11:18 WBC 9.1 RBC 3.03 L Hgb 9.3 L Hct 29.1 L MCV 96.0 MCH 30.7 MCHC 32.0 RDW 16.7 H Plt Count 333 MPV 9.4 Neut % (Auto) 67.6 Lymph % (Auto) 12.5 L Dukes % (Auto) 12.0 H Eos % (Auto) 7.8 H Baso % (Auto) 0.1 Lymph # (Auto) 1.1 L Dukes # (Auto) 1.1 H Eos # (Auto) 0.7 Baso # (Auto) 0.01 Absolute Neuts (auto) 6.15 Sodium 137 Potassium 4.6 Chloride 100 Carbon Dioxide 27 Anion Gap 14 BUN 36 H Creatinine 1.9 H Est GFR ( Amer) 42 Est GFR (Non-Af Amer) 35 POC Glucose (mg/dL) 263 H Random Glucose 170 H Calcium 8.5 Phosphorus 3.4 Magnesium 2.3 H Total Bilirubin 0.6 Direct Bilirubin 0.3 AST 37 ALT 26 Alkaline Phosphatase 82 Total Protein 6.4 Albumin 3.2 Globulin 3.2 Albumin/Globulin Ratio 1.0 L Attending/Attestation - Attestation I have personally seen and examined this patient.: Yes I have fully participated in the care of the patient.: Yes I have reviewed all pertinent clinical information: Yes Notes (Text): Please see/read my dictated notes.
[2018-11-16 16:51] LABS: FREE T4 1.26 ng/dL (0.78-2.19)
[2018-11-16] MEDS: Insulin Human NPH 1 UNITS/0.01 ML SC SCH (17:32)
[2018-11-16] MEDS: Insulin Lispro (humaLOG) MEDIUM Coverage SC SCH (17:32)
[2018-11-16] MEDS: Cilostazol 50 mg Tab UD PO SCH (18:06)
--- NOTE | 2018-11-16 18:17 | CARD ---
APPROVED REPORT Date of service: 11/16/2018 EKG Measurement Heart [id number] <Conclusion> Sinus tachycardia Left Anterior Rick-Block. Abnormal ECG
[2018-11-16] MEDS ORDERED: Pneumococcal 23-Valent Vaccine IM ONE (21:29)
[2018-11-16] MEDS: MEROPENEM 500 MG in NS 500 MG/50 ML BAG IVPB SCH (21:33)
--- NOTE | 2018-11-17 01:39 | HP ---
DATE OF EXAM: 11/16/2018 HISTORY OF PRESENT ILLNESS: The patient is a 73-year-old [place] male presented to the [facility] emergency room in the afternoon today via the [facility] ambulance. The patient came to the emergency room for worsening left foot pain and drainage from the left foot wound, which has been going on for unknown duration of time. The patient states that this has been going on for weeks and months. Because of the left foot pain and increasing drainage, the patient has been using home care with bandages and dressing, but unable to give exact time of the drainage. CODE STATUS: Full code. LIVING WILL ADVANCE DIRECTIVE: None. Height is 5 feet 5 inches. Weight is 150. BMI is 25. ALLERGIES: NONE. MEDICATIONS: The patient was last discharged from 07/16/2018; the patient's home medication at that time, Nephro-Sumit 1 tablet daily, Flomax 0.4 mg daily, Protonix 40 mg daily, Lopressor 25 mg twice a day, ferrous sulfate 325 twice a day, Drisdol 50,000 weekly, Colace 100 mg three times a day, Pletal 50 mg twice a day, Lipitor 20 mg daily, Ecotrin 81 mg daily, allopurinol 100 mg daily, Tylenol p.r.n., glipizide 10 mg twice a day, and Lotrisone cream. OCCUPATIONAL HISTORY: Disabled elderly man. FAMILY HISTORY: Positive for hypertension and diabetes. SOCIAL HISTORY: Positive for former smoking and alcohol use, not smoking at present or drinking. PAST MEDICAL AND SURGICAL HISTORY: History of peripheral vascular disease, history of hypertension, history of hyperlipidemia, history of noninsulin-requiring diabetes mellitus, history of nonsteroidal anti-inflammatory drug use, history of chronic kidney disease stage III, history of hyperuricemia, history of gout, history of left foot second toe amputation, history of noncompliance, history of diabetic foot disease, history of inguinal hernia surgery, history of renal failure, history of neurosis, history of left foot great toe diabetic ulceration, history of osteomyelitis of the left foot great toe first, third, and fourth metatarsal bone osteomyelitis, history of degenerative joint disease of the foot, history of left foot cellulitis, history of osteopenia and osteoporosis of the left foot with gouty nodules, history of diabetic neuropathy, history of subtotal left foot second toe digit amputation, history of left foot toes osteomyelitis, history of degenerative joint disease, history of bilateral tibial peripheral vascular disease, history of left iliac occlusive disease, and history of nonhemolyzed hyperkalemia. Past medical history is significant for deconditioning, gait dysfunction, left foot toe cellulitis, diabetic ulceration, severe peripheral vascular disease, history of left popliteal artery stenting and drug-eluting stent placement, history of gouty arthritis, history of left foot Pseudomonas aeruginosa and Klebsiella oxytoca diabetic foot ulceration, history of questionable coagulase-negative Staphylococcus aureus bacteremia, sepsis versus contamination, history of metabolic acidosis, history of constipation, history of dilated cardiomyopathy with ejection fraction of 35%, history of hypertensive diabetic acute chronic kidney disease, history of chronic kidney disease stage III/IV without proteinuria, history of pulmonary hypertension with right ventricular systolic pressure of 40 mmHg, history of [id number] mitral regurgitation, history of moderate tricuspid regurgitation, history of mild aortic regurgitation, history of abdominal aortogram and history of successful left popliteal artery drug-eluting and balloon angioplasty, history of severe left lower extremity and left trifurcation left tibial and pedal occlusive disease, history of left axis deviation, history of hypovitaminosis D, history of urinary retention with increased postvoid residual, history of pulmonary hypertension, history of questionable noncompliance, history of uncontrolled diabetes mellitus, history of gouty tophi of the left foot, history of nephrotic range proteinuria, and history of cardiomyopathy with left ventricular ejection fraction of 35%. PHYSICAL EXAMINATION: GENERAL: The patient is seen in stretcher #13 in the emergency room. The patient is seen lying in the bed comfortable. The patient has a dressing of the left foot with dark greenish yellow drainage from the left foot dressing. VITAL SIGNS: T-max 98.4, pulse 108, and repeat heart rate pending. Blood pressure 138/70, respirations 18, and O2 sat 98%. HEENT: Head; normocephalic and atraumatic. HEENT examination shows pinkish pale conjunctivae. Anicteric sclerae. No oropharyngeal lesion. NECK: No neck rigidity. CHEST: Kyphosis. LUNGS: Shows no audible crackle, rales, or wheezing. CARDIOVASCULAR: S1 and S2, regular rhythm. Positive systolic murmur left sternal border, right second intercostal space, left second intercostal space. No audible S3, S4, or gallop. ABDOMEN: Soft. Positive bowel sounds. No palpable hepatosplenomegaly. GENITALIA: Male. RECTAL: Deferred. EXTREMITIES: Shows trace swelling of the lower extremity. Positive left foot toe amputation. Positive drainage from the left foot toes, foul-smelling yellowish greenish. Decreased pulses of the lower extremity. MUSCULOSKELETAL: Shows a body mass index of 25. NEUROLOGIC: The patient is alert, awake, and responsive, is able to move upper and lower extremity without assistance. Gait examination is not tested. PSYCHIATRIC: Negative for anxiety or depression. Negative for auditory or visual hallucination. Negative for suicidal or homicidal ideation. DIAGNOSTIC DATA: WBC 16.2, hemoglobin and hematocrit 10.3 and 31.6, platelets 322, and granulocytes 83% segs. PT/PTT 13.7 and 28.3. Sodium 139, potassium 4.7, chloride 102, CO2 of 25, anion gap 18, BUN 46, creatinine 2.2, GFR is 29, glucose 230, calcium 9.6, total bili 1.7, and AST 70. Rest of the LFTs are normal. The patient's chest x-ray, EKG, and left foot x-rays are pending. At present, the patient is evaluated in the emergency room. The patient was seen in the emergency room by the ER physician. The patient is given a dose of vancomycin 1 g and Zosyn 3.375 g stat in the ER. The patient's further diagnostic testing is pending. IMPRESSION AND PLAN: 1. Left foot diabetic foot ulceration versus left foot abscess versus left foot toe osteomyelitis. 2. Tachycardia. 3. Leukocytosis with granulocytosis. 4. Questionable systemic inflammatory response syndrome. 5. Uncontrolled diabetes mellitus with hyperglycemia. 6. Chronic kidney disease stage IV. 7. Mild transaminitis. 8. History of hypertension. 9. Hyperlipidemia. 10. History of prostatic hypertrophy. 11. History of iron-deficiency anemia. 12. History of hypovitaminosis D. 13. History of dilated cardiomyopathy. 14. History of pulmonary hypertension. 15. History of moderate tricuspid regurgitation and mitral regurgitation. 16. Hyperuricemia. Plan at this time, the patient is awaiting for further diagnostic testing. The patient has been ordered thyroid profile, CRP, lactic acid, and uric acid level. Repeat CMP, LFTs, magnesium, phosphorous, vitamin D, hemoglobin A1c, and lipid panel ordered. Fructosamine, GlycoMark, and PTH ordered. ESR ordered. Blood cultures and wound cultures ordered. X-ray of the left foot ordered. CONSULTATION: Podiatry and Infectious Disease ordered. consumer educator referral ordered. TCU evaluation ordered. CURRENT MEDICATIONS: Colace 100 mg three times a day, hypoglycemia protocol ordered, Drisdol 50,000 units weekly, aspirin 81 mg p.o. daily, ferrous sulfate 325 twice a day, Flomax 0.4 mg daily, heparin 5000 subcutaneously every 8 hours, Humalog medium dose sliding scale coverage a.c., NPH 10 units with breakfast and dinner ordered, Lipitor 20 mg daily, Lopressor 25 mg twice a day, Nephro-Sumit 1 tablet daily, Pletal 50 mg twice a day, Protonix 40 mg daily, Tylenol 650 mg p.o. suppository every 6 hours p.r.n. ordered, the patient with Zofran 4 mg IV every 4 hours p.r.n., and allopurinol 100 mg daily. Chest x-ray results pending. The patient has been ordered arterial Doppler of the lower extremity. MRI of the left foot ordered, incentive spirometry every 2 hours ordered, EKG ordered, and consistent carbohydrate diet ordered. The patient has been ordered physical therapy, occupational therapy, and gait training. The patient has been ordered Interventional Radiology consultation with Dr. Lujan. At present, the patient is awaiting for further diagnostic pending test. The patient will be admitted to [facility] The patient will be continued on broad-spectrum IV antibiotics. We will await further recommendation and evaluation by infectious disease and Podiatry. At present, the patient's further management will be dependent upon the patient's clinical condition, hemodynamic status, and as per the patient response to therapeutic intervention, as per the patient's diagnostic test results, and as per recommendation by all the physicians. Dictated and electronically signed, not read. Niranjan Ling MD
[2018-11-17] MEDS: Pantoprazole 40 mg EC Tab PO SCH (06:32)
[2018-11-17 07:23] LABS: BASO # 0.02 K/mm3 (0.0-2.0); BASO % 0.1 % (0.0-3.0); EOS % 0.1 % (1.5-5.0); HEMOGLOBIN 9.3 g/dL (14.0-18.0); LYMPH % 5.8 % (22.0-35.0); MEAN CELL VOLUME 100.3 fl (80.0-105.0); MEAN CORPUSCULAR HEMOGLOBIN 32.3 pg (25.0-35.0); MEAN CORPUSCULAR HGB CONC 32.2 g/dl (31.0-37.0); MONO # 1.3 (0.1-0.6); MONO % 7.5 % (1.0-6.0); RBC 2.88 10^6/uL (3.5-6.1); RED CELL DISTRIBUTION WIDTH 15.5 % (11.5-14.5); WHITE BLOOD COUNT 17.5 10^3/uL (4.5-11.0)
[2018-11-17 07:43] LABS: ALB/GLOB RATIO 1.1 (1.1-1.8); ALBUMIN 3.7 g/dL (3.0-4.8); BILIRUBIN,DIRECT 0.4 mg/dL (0.0-0.4)
[2018-11-17] MEDS: MEROPENEM 500 MG in NS 500 MG/50 ML BAG IVPB SCH ×2 (09:03→21:23)
[2018-11-17] MEDS: Cilostazol 50 mg Tab UD PO SCH ×2 (09:04→17:21)
[2018-11-17] MEDS: Multivitamin Vitamin B Complex (Nephro-Vite) Tab PO SCH (09:04)
[2018-11-17] MEDS: Insulin Lispro (humaLOG) MEDIUM Coverage SC SCH ×3 (09:04→17:19)
[2018-11-17] MEDS: Insulin Human NPH 1 UNITS/0.01 ML SC SCH ×2 (09:05→17:20)
--- NOTE | 2018-11-17 09:33 | CON ---
CARDIOLOGY CONSULTATION DATE: 11/17/2018 HISTORY: The patient is a 73-year-old male who presents with drainage and progressive infection in his in his left foot. The patient's past medical history includes diabetes mellitus, documented severe peripheral vascular disease, ischemic dilated cardiomyopathy, high probability for CAD, hypertension, and hypercholesterolemia. The patient is a former smoker and stopped years ago. He denies angina. Denies shortness of breath. Denies edema in the lower extremities. The patient has adamantly refused any cardiac workup in the past, documented by multiple visits by the plug assembler at his last admission in June this year. PHYSICAL EXAMINATION: GENERAL: The patient is in bed, in no acute distress at rest. VITAL SIGNS: Blood pressure is 99/58, the heart rate is in the 90s. NECK: Negative JVD. LUNGS: Without rales. HEART: S1, S2. EXTREMITIES: With bandage on left lower extremity. EKG shows normal sinus rhythm with left anterior hemiblock with nonspecific ST-T changes. LABORATORY DATA: The creatinine is 2.2. The hemoglobin is 9.3. IMPRESSION: 1. Wound of the left lower extremity. 2. Severe peripheral vascular disease. 3. High probability for coronary artery disease. 4. Probable ischemic dilated cardiomyopathy with an ejection fraction in the 30% range. 5. Renal insufficiency. 6. Anemia. 7. Diabetes mellitus. 8. Hypercholesterolemia. The patient is at high risk for any anesthesia given his high probability for an ischemic dilated cardiomyopathy. We are unable to adequately diagnose, nor treat him given the patient's refusal for any cardiac testing. There is no further workup available given the patient's refusal for any diagnostic cardiac testing. The patient remains at increased risk for any anesthesia. Milton Murrell MD
[2018-11-17 11:10] LABS: IRON 27 ug/dL (45-180)
[2018-11-17 11:20] LABS: % IRON SATURATION 13 % (20-55); TOTAL IRON BINDING CAPACITY 199 ug/dL (261-462)
--- NOTE | 2018-11-17 13:09 | CP.PCM.PN ---
Subjective - Date & Time of Evaluation Date of Evaluation: 11/17/18 Time of Evaluation: 13:05 - Subjective Subjective: Podiatry progress note for Dr. Heller, 73 year old male with a PMH of PAD s/p 2nd left toe amputation (09/2017), DM2, CHFrEF, gout and arthritis seen and evaluated for left foot cellulitis with significant skin loss, but recently worsening. Patient denies any acute overnight events. Patient is aware he is at [facility] at this time. Objective - Vital Signs/Intake and Output Vital Signs (last 24 hours): Temp Pulse Resp BP Pulse Ox 99.2 F 99 H 20 120/56 L 99 11/17/18 06:00 11/17/18 06:00 11/17/18 06:00 11/17/18 06:00 11/17/18 06:00 Intake and Output: 11/17/18 11/17/18 06:59 18:59 Intake Total 700 Output Total 200 Balance 500 - Medications Medications: Current Medications Acetaminophen (Tylenol 325mg Tab) 650 mg PO Q6H PRN PRN Reason: Pain, moderate (4-7) Acetaminophen (Tylenol 650 Mg Supp) 650 mg RC Q6H PRN PRN Reason: TEMP>=99.5F Allopurinol (Zyloprim) 100 mg PO DAILY [facility] Last Admin: 11/17/18 09:03 Dose: 100 mg Aspirin (Ecotrin) 81 mg PO 0800 [facility] Last Admin: 11/17/18 09:04 Dose: 81 mg Atorvastatin Calcium (Lipitor) 20 mg PO DIN [facility] Last Admin: 11/16/18 17:33 Dose: 20 mg Cilostazol (Pletal) 50 mg PO BID [facility] Last Admin: 11/17/18 09:04 Dose: 50 mg Darbepoetin Arturo (Aranesp) 40 mcg SC QWK [facility] Dextrose (Dextrose 50% Inj) 0 ml IV STAT PRN; Protocol PRN Reason: Hypoglycemia Protocol Docusate Sodium (Colace) 100 mg PO TID [facility] Last Admin: 11/17/18 09:04 Dose: 100 mg Ergocalciferol (Drisdol 50,000 Intl Units Cap) 1 cap PO Q7D [facility] Last Admin: 11/16/18 17:33 Dose: 1 cap Ferrous Sulfate (Feosol) 324 mg PO BID [facility] Last Admin: 11/17/18 09:04 Dose: 324 mg Heparin Sodium (Porcine) (Heparin) 5,000 units SC Q8 [facility]; Protocol Last Admin: 11/17/18 06:32 Dose: 5,000 units Dextrose (Dextrose 5% In Water 1000 Ml) 1,000 mls @ 0 mls/hr IV .Q0M PRN; Protocol PRN Reason: Hypoglycemia Protocol Meropenem/Sodium Chloride (Merrem Iv 500 Mg/Ns 50 Ml) 500 mg in 50 mls @ 100 mls/hr IVPB Q12 [facility]; Protocol Last Admin: 11/17/18 09:03 Dose: 100 mls/hr Insulin Human Lispro (Humalog Med) 0 units SC AC [facility]; Protocol Last Admin: 11/17/18 11:30 Dose: 7 units Insulin Human NPH (Humulin N) 10 units SC ACBD [facility] Last Admin: 11/17/18 09:05 Dose: 10 units Linezolid (Zyvox) 600 mg PO BID [facility]; Protocol Stop: 11/24/18 20:20 Last Admin: 11/17/18 09:04 Dose: 600 mg Metoprolol Tartrate (Lopressor) 25 mg PO 0800,1800 [facility] Last Admin: 11/17/18 09:04 Dose: 25 mg Ondansetron HCl (Zofran Inj) 4 mg IVP Q4H PRN PRN Reason: Nausea/Vomiting Pantoprazole Sodium (Protonix Ec Tab) 40 mg PO 0600 [facility] Last Admin: 11/17/18 06:32 Dose: 40 mg Sodium Bicarbonate (Sodium Bicarbonate Tab) 650 mg PO BID [facility] Tamsulosin HCl (Flomax) 0.4 mg PO 1830 [facility] Last Admin: 11/16/18 17:33 Dose: 0.4 mg Vitamin B Complex/Vit C/Folic Acid (Nephro-Sumit) 1 tab PO 0800 [facility] Last Admin: 11/17/18 09:04 Dose: 1 tab - Labs Labs: 11/17/18 07:00 11/17/18 07:00 PT 13.7 SECONDS (9.4-12.5) H 11/16/18 12:40 INR 1.21 11/16/18 12:40 APTT 28.3 Seconds (26.9-38.3) 11/16/18 12:40 - Constitutional Appears: Toxic, Confused - Head Exam Head Exam: ATRAUMATIC, NORMOCEPHALIC - Extremities Exam Additional comments: Left Lower Extremity Exam VASC: DP and Pt non-palpable, CFT delayed, significant edema to the left forefoot, TG warm to warm NEURO: diminished sensation with tingling DERM: significant skin loss with erythema to the forefoot, positive drainage noted, no obvious wounds that probe to bone, tunnel or track, positive malodor, maceration noted with gangrenous changes to the digits, significant pain on palpation - Neurological Exam Neurological Exam: Alert, Awake, Oriented x3 - Psychiatric Exam Psychiatric exam: Normal Affect, Normal Mood Assessment and Plan - Assessment and Plan (Free Text) Assessment: 73 y/o male patient seen and evaluated for left foot wound with cellulitis Plan: Patient seen and evaluated with Dr. Milton Heller Plan discussed with Dr. Heller Chart, labs and vitals reviewed- WBC 17.5, febrile overnight ESR 122, CRP >15.0 Left Foot X-ray: chronic osteo, no soft tissue emphysema noted at this time Wound Culture Ordered FAHAD/PVR: abnormal FAHAD/PVR Ordered Left foot MRI- pending as patient son is required to fill out form Infectious disease consult, recommendations appreciated Vascular consult for Dr. Lujan, recommendations appreciated Cardiology recommendations appreciated- as per Dr. Murrell, patient at high risk for any anesthesia and patient has refused all workup Wound dressed with wet to dry saline dressing Podiatry will continue to follow and monitor patient
--- NOTE | 2018-11-17 13:38 | CP.PCM.PCO ---
Additional Comments - Additional Comments Additional Comments: osteomyelitis, cellulitis, continue IV antibiotics as per ID, patient NPO 11/18 possible surgical intervention, Dr. Heller following patient, repeat labs, reevaluate in am.
--- NOTE | 2018-11-17 13:39 | CP.PCM.PCO ---
Physician Communication Note - Physician Communication Note Physician Communication Note: MRI pending
--- NOTE | 2018-11-17 14:30 | MRI ---
Date of service: 11/17/2018 PROCEDURE: MRI of the left foot HISTORY: r/o abscess and acute osteo COMPARISON: TECHNIQUE: MRI of the left foot was performed in the sagittal plane only. The patient could not tolerate any further scanning. The study is therefore limited. FINDINGS: There is no marrow edema to suggest acute osteomyelitis. Soft tissue masses with erosive changes are seen that are suspicious for gout. Clinical correlation is suggested. IMPRESSION: Limited study. No marrow edema to suggest osteomyelitis.
--- NOTE | 2018-11-17 15:18 | PN ---
DATE: 11/17/2018 SUBJECTIVE: The patient is seen in room 575, bed 2. The patient is seen lying in the bed. Overnight nurse's notes were reviewed. No adverse events were documented, notified, called for. According to the nurse's notes, the patient was found to be forgetful. PHYSICAL EXAMINATION VITAL SIGNS: T-max 100.5; heart rate 96, 99, 103; blood pressure is 120/56, 137/71; respirations 20; O2 sat 99%. The patient seen lying in the bed. HEENT: Head: Normocephalic, atraumatic. HEENT examination shows pinkish pale conjunctivae. Anicteric sclerae. No oropharyngeal lesion. NECK: No neck rigidity. CHEST: Kyphosis. LUNGS: Show no audible crackle, rales or wheezing. CARDIOVASCULAR: S1, S2, regular rhythm. Positive systolic murmur left sternal border, right second intercostal space, left second intercostal space. ABDOMEN: Soft, positive bowel sound. No palpable hepatosplenomegaly. GENITALIA: Male. RECTAL: Deferred. EXTREMITIES: Show positive dressing of the left foot. No pitting edema. No calf tenderness. No Homans' sign. NEUROLOGIC: The patient is alert, awake, responsive, is able to move upper and lower extremities without assistance. Gait examination is not tested. MUSCULOSKELETAL: Shows a body mass index of 25. DIAGNOSTICS: 11/17; WBC count is increased from 16.2-17.5 today, hemoglobin and hematocrit 9.3 and 29, platelets 270, granulocytes 87% segs. ESR 122. Sodium 136, potassium 4.8, chloride 101, CO2 of 20, anion gap 20, BUN 47, creatinine 2.4, GFR 27, glucose 223. Lactic acid 2.8, down to 1.6. Calcium 9.0, phosphorus 3.5, magnesium 2.1. AST 105. Triglycerides 224, cholesterol 103, LDL 45, HDL 18. Thyroid profile is within normal limits. The patient's chest x-ray was reviewed which shows aortic calcification, no active disease. Arterial Doppler of the lower extremity was reviewed, which shows ankle-brachial indexes on the right of 0.60 and the left 0.56 with moderately abnormal resting ABIs with bilateral popliteal trifurcation and tibial disease. Foot x-ray results were reviewed. EKG was reviewed. IMPRESSION 1. Left foot cellulitis with diabetic foot disease and possible abscess versus possible osteomyelitis. 2. History of left foot second toe amputation. 3. Hypertension. 4. Tachycardia. 5. Fever. 6. Poor compliance and noncompliance. 7. Leukocytosis with granulocytosis. 8. Normocytic anemia. 9. Elevated erythrocyte sedimentation rate of 122. 10. Chronic kidney disease, stage IV with acute kidney injury. 11. Transient lactic acidosis. 12. History of hyperuricemia. 13. Hypertriglyceridemia. 14. Aortic calcification. 15. Bilateral lower extremity popliteal trifurcation and tibial peripheral vascular disease. 16. Left foot first metatarsophalangeal joint bony destruction and sclerosis, chronic osteomyelitis. 17. 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 18. 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 19. Sinus tachycardia with left anterior hemiblock. 20. Deconditioning. 21. History of poor compliance. 22. Chronic dilated ischemic cardiomyopathy with ejection fraction of . 23. History of hypertension. 24. History of heart failure with reduced ejection fraction of 35%. 25. Pulmonary hypertension with right ventricular systolic pressure of 40 mmHg. 26. Left ventricular global hypokinesis and moderately impaired left ventricular systolic function. 27. Mild aortic regurgitation. 28. Moderate to severe mitral regurgitation. 29. Moderate tricuspid regurgitation. 30. History of constipation. 31. Hypovitaminosis D. 32. History of iron-deficiency anemia. 33. Prostatic hypertrophy. 34. Insulin-requiring diabetes mellitus. 35. Hyperlipidemia. 36. History of peripheral vascular disease. 37. Hyperuricemia. 1. Left foot diabetic foot ulceration versus left foot abscess versus left foot toe osteomyelitis. 2. Tachycardia. 3. Leukocytosis with granulocytosis. 4. Questionable systemic inflammatory response syndrome. 5. Uncontrolled diabetes mellitus with hyperglycemia. 6. Chronic kidney disease stage IV. 7. Mild transaminitis. 8. History of hypertension. 9. Hyperlipidemia. 10. History of prostatic hypertrophy. 11. History of iron-deficiency anemia. 12. History of hypovitaminosis D. 13. History of dilated cardiomyopathy. 14. History of pulmonary hypertension. 15. History of moderate tricuspid regurgitation and mitral regurgitation. 16. Hyperuricemia. PLAN: At this time, the patient has been ordered repeat labs. Current consultation Interventional Radiology, Podiatry, Cardiology, Infectious Disease, Nephrology requested. Diabetic education referral ordered. TCU evaluation ordered. CURRENT MEDICATIONS: Colace 100 mg three times a day, hypoglycemia protocol, Drisdol 50,000 units weekly, Ecotrin 81 mg daily, ferrous sulfate 324 mg twice a day, Flomax 0.4 mg daily, heparin 5000 subcutaneous every 8 hours, insulin Humalog medium dose sliding scale coverage, NPH 10 units with breakfast and dinner, Lipitor 20 mg daily, Lopressor 25 mg twice a day, meropenem 500 mg IV every 12 hours, Nephro-Sumit 1 tablet daily, Pletal 50 mg twice a day, Protonix 40 mg daily, Tylenol 650 mg p.o. suppository every 6 hours p.r.n., Zofran 4 mg IV every 4 hours p.r.n., allopurinol 100 mg daily, Zyvox 600 mg twice a day. The patient's MRI of the left foot is pending. The patient has been ordered incentive spirometry. The patient has been made n.p.o. today by the Podiatry after lunch. The patient has been ordered SCD to the right leg, occupational therapy, physical therapy with nonweightbearing to the left leg and left foot. The patient was seen by sheet pile driver operator for preop clearance today, if the patient needs any surgical intervention, recommendation by Cardiology. The patient will be high risk for any anesthesia given high probability of ischemic dilated cardiomyopathy, for which the patient refused cardiac catheterization in the past. The patient will be continued on IV meropenem and Zyvox as per Infectious Disease. The patient is on meropenem 500 IV every 12 hours and Zyvox 600 mg p.o. twice a day. The patient has been ordered repeat labs for the morning. The patient will be ordered iron studies. At present, the patient's further management will be dependent upon the patient's clinical condition, hemodynamic status, and as per the patient's response to therapeutic intervention, as per the patient's diagnostic test results, and as per recommendation by all the physicians involved in the care of the patient. Dictated and electronically signed, not read. Niranjan Ling MD [facility]
--- NOTE | 2018-11-17 16:24 | CP.PCM.CON ---
History of Present Illness - History of Present Illness History of Present Illness: Nephrology Consultation Note: Assessment: Stable Acute Kidney Injury (N17.9) likely due to sepsis with cellulitis metabolic acidosis Diabetic chronic Kidney Disease (E11.22) Hypertensive Chronic Kidney Disease (I12.9) Chronic Kidney Disease (N18.3) Stage 3 without proteinuria (R80.9) likely due to HTN/vasc disease Anemia (D64.9), DM, gout PVD severe MR/TR with sys CHF LVEF 35-40% Plan No acute need for renal replacement therapy at this time. Hypertension control with meds as ordered. Maintain hemodynamics stable. Avoid hypotension. Patient not on ACEI/ARB due to EMIL and hyperkalemia tendency. consider to add once stable. Monitor Input/Output, daily weights and renal function with basic metabolic panel continue with iron and MVI. PRBC as needed. dose of aransep 40 mcg 11/17/18 vit d can be changed to once a month as last level 41 continue with flomax if pt need angiogram, he will be at increased risk of contrast nephropathy. suggest IVF as NS pre-procedure. Dose meds/antibiotics for reduced GFR. Avoid fleets enema/magnesium based laxatives. Avoid nephrotoxins/NSAIDs/ iodinated contrast (unless needed emergently) Glycemic control Further work up/management as per primary team Thanks for allowing me to participate in care of your patient. Will follow patient with you. Please call if any Qs. had d/w team Dr Anjum Padron Office: [phone] Chief Complaint; Foot ulcer Reason for consult: Acute Kidney Injury HPI: Pt is a 73 M with hx of diabetes Mellitus (30 years), hypertension (years) PVD, Gout CKD 3 with baseline cr 1.8-1.9 presented with complaints of foot ulcer, being managed for cellulitis. seen for EMIL and pt also with PVD Denies OTC/herbal meds or NSAIDs. No recent iodinated contrast exposure. Noted obvious episodes of low BP. pt still not aware about kidney disease in past ROS: Cardiovascular: No chest pain. Pulmonary: No shortness of breath Gastrointestinal: denies abdominal pain No nausea. No vomiting. Genitourinary: No pain while urinating. Denies blood in urine. sometimes feels hesitancy. All other negative except as mentioned in HPI Physical Examination: General Appearance: Comfortable, in no acute respiratory distress, co-operative . Vitals reviewed and noted as below Head; Atraumatic, normocephalic ENT: no ulcers no thrush. Tongue is midline. Oropharynx: no rash or ulcers. EYES: Pupils are equal, round and reactive to light accommodation. Eye muscles and extra-ocular movement intact. Sclera is anicteric. Neck; supple no lymphadenopathy, no thyromegaly or bruit Lungs: Normal respiratory rate/effort. Breath sounds bilateral equal and clear Heart: Normal rate. s1s2 normal. No rub or gallop. Extremities: no edema. No varicose veins. left foot in dressing Neurological: Patient is alert, awake and oriented to person, place and time. No focal deficit. Strength bilateral appropriate and equal Skin: Warm and dry. Normal turgor. No rash. Palpitation: Normal elasticity for age Abdomen: Abdomen is soft. Bowel sounds +. There is no abdominal tenderness, no guarding/rigidity no organomegaly Psych: lack insight and normal affect/mood MSK: no joint tenderness or swelling. Digits and nails normal, no deformity : kidney or bladder not palpable. Labs/imaging reviewed. Past medical history, past surgical history, family history, social history, allergy reviewed and noted as below Family hx: no hx of CKD. Rest non-contributory Phos 3.5 TSAT 13% Vit D 41 PTH 49 LDL 103 kappa/lambda 3.4 uric acid 7.5 renal cyst left side Past Patient History - Infectious Disease Hx of Infectious Diseases: None - Past Social History Smoking Status: Former Smoker - CARDIAC Hx Cardiac Disorders: Yes Hx Congestive Heart Failure: Yes Hx Hypercholesterolemia: Yes Hx Hypertension: Yes Hx Peripheral Vascular Disease: Yes (PAD) - PULMONARY Hx Respiratory Disorders: Yes (SMOKED CIGARETTES .QUIT 35 YRS AGO.) - NEUROLOGICAL Hx Neurological Disorder: No - HEENT Hx HEENT Problems: Yes (eyeglasses) - RENAL Hx Chronic Kidney Disease: No - ENDOCRINE/METABOLIC Hx Endocrine Disorders: Yes Hx Diabetes Mellitus Type 1: Yes - HEMATOLOGICAL/ONCOLOGICAL Hx Blood Disorders: No - INTEGUMENTARY Hx Dermatological Problems: Yes Other/Comment: +1 edema left foot/ankle pitting, left foot 2nd toe amputated, foot red ,swollen, painful, thick toenails. r ft +1 ankle edema, bunyons and great toes crooked b/l - MUSCULOSKELETAL/RHEUMATOLOGICAL Hx Musculoskeletal Disorders: Yes (L 2ND TOE AMPUTATED,GREAT TOE CROOKED LEFT FOOT.BUNIONS) Hx Falls: No Hx Gout: Yes Hx Osteomyelitis: Yes - GASTROINTESTINAL Hx Gastrointestinal Disorders: Yes (CONSTIPATION,HERNIORHAPPHY) - GENITOURINARY/GYNECOLOGICAL Hx Genitourinary Disorders: No - PSYCHIATRIC Hx Psychophysiologic Disorder: No Hx Substance Use: No - SURGICAL HISTORY Hx Surgeries: Yes Other/Comment: Hernia repair. Foot surgery- [facility] [place] A YR AGO PER PT. L foot 2nd toe amputation - ANESTHESIA Hx Anesthesia: Yes Hx Anesthesia Reactions: No Hx Malignant Hyperthermia: No Meds Allergies/Adverse Reactions: Allergies Allergy/AdvReac Type Severity Reaction Status Date / Time No Known Allergies Allergy Verified 11/16/18 18:45 - Medications Medications: Current Medications Acetaminophen (Tylenol 325mg Tab) 650 mg PO Q6H PRN PRN Reason: Pain, moderate (4-7) Acetaminophen (Tylenol 650 Mg Supp) 650 mg RC Q6H PRN PRN Reason: TEMP>=99.5F Allopurinol (Zyloprim) 100 mg PO DAILY [facility] Last Admin: 11/17/18 09:03 Dose: 100 mg Aspirin (Ecotrin) 81 mg PO 0800 [facility] Last Admin: 11/17/18 09:04 Dose: 81 mg Atorvastatin Calcium (Lipitor) 20 mg PO DIN [facility] Last Admin: 11/16/18 17:33 Dose: 20 mg Cilostazol (Pletal) 50 mg PO BID [facility] Last Admin: 11/17/18 09:04 Dose: 50 mg Darbepoetin Arturo (Aranesp) 40 mcg SC QWK [facility] Dextrose (Dextrose 50% Inj) 0 ml IV STAT PRN; Protocol PRN Reason: Hypoglycemia Protocol Docusate Sodium (Colace) 100 mg PO TID [facility] Last Admin: 11/17/18 14:42 Dose: Not Given Ergocalciferol (Drisdol 50,000 Intl Units Cap) 1 cap PO Q7D [facility] Last Admin: 11/16/18 17:33 Dose: 1 cap Ferrous Sulfate (Feosol) 324 mg PO BID [facility] Last Admin: 11/17/18 09:04 Dose: 324 mg Heparin Sodium (Porcine) (Heparin) 5,000 units SC Q8 [facility]; Protocol Last Admin: 11/17/18 14:41 Dose: 5,000 units Dextrose (Dextrose 5% In Water 1000 Ml) 1,000 mls @ 0 mls/hr IV .Q0M PRN; Protocol PRN Reason: Hypoglycemia Protocol Meropenem/Sodium Chloride (Merrem Iv 500 Mg/Ns 50 Ml) 500 mg in 50 mls @ 100 mls/hr IVPB Q12 [facility]; Protocol Last Admin: 11/17/18 09:03 Dose: 100 mls/hr Insulin Human Lispro (Humalog Med) 0 units SC AC [facility]; Protocol Last Admin: 11/17/18 11:30 Dose: 7 units Insulin Human NPH (Humulin N) 10 units SC ACBD [facility] Last Admin: 11/17/18 09:05 Dose: 10 units Linezolid (Zyvox) 600 mg PO BID [facility]; Protocol Stop: 11/24/18 20:20 Last Admin: 11/17/18 09:04 Dose: 600 mg Metoprolol Tartrate (Lopressor) 25 mg PO 0800,1800 [facility] Last Admin: 11/17/18 09:04 Dose: 25 mg Ondansetron HCl (Zofran Inj) 4 mg IVP Q4H PRN PRN Reason: Nausea/Vomiting Pantoprazole Sodium (Protonix Ec Tab) 40 mg PO 0600 [facility] Last Admin: 11/17/18 06:32 Dose: 40 mg Sodium Bicarbonate (Sodium Bicarbonate Tab) 650 mg PO BID [facility] Tamsulosin HCl (Flomax) 0.4 mg PO 1830 [facility] Last Admin: 11/16/18 17:33 Dose: 0.4 mg Vitamin B Complex/Vit C/Folic Acid (Nephro-Sumit) 1 tab PO 0800 [facility] Last Admin: 11/17/18 09:04 Dose: 1 tab Results - Vital Signs Recent Vital Signs: Last Vital Signs Temp 99 F 11/17/18 14:00 Pulse 100 H 11/17/18 14:00 Resp 20 11/17/18 14:00 BP 97/53 L 11/17/18 14:00 Pulse Ox 96 11/17/18 14:00 - Labs Result Diagrams: 11/17/18 07:00 11/17/18 07:00 Labs: Laboratory Results - last 24 hr 11/16/18 11/16/18 11/16/18 16:15 16:15 16:15 WBC RBC Hgb Hct MCV MCH MCHC RDW Plt Count MPV Neut % (Auto) Lymph % (Auto) [place] % (Auto) Eos % (Auto) Baso % (Auto) Lymph # (Auto) [place] # (Auto) Eos # (Auto) Baso # (Auto) Absolute Neuts (auto) Sodium Potassium Chloride Carbon Dioxide Anion Gap BUN Creatinine Est GFR ( Amer) Est GFR (Non-Af Amer) POC Glucose (mg/dL) Random Glucose Hemoglobin A1c Fructosamine 329 H Lactic Acid Uric Acid Calcium Phosphorus Magnesium Iron TIBC % Saturation Total Bilirubin Direct Bilirubin AST ALT Alkaline Phosphatase C-React Prot High Sens > 15.00 H > 15.00 H Total Protein Albumin Globulin Albumin/Globulin Ratio Triglycerides Cholesterol LDL Cholesterol Direct HDL Cholesterol 25-OH Vitamin D Total Free T4 1.26 Thyroxine (T4) 5.6 TSH 3rd Generation 1.94 11/16/18 11/16/18 11/16/18 16:19 17:10 19:19 WBC RBC Hgb Hct MCV MCH MCHC RDW Plt Count MPV Neut % (Auto) Lymph % (Auto) [place] % (Auto) Eos % (Auto) Baso % (Auto) Lymph # (Auto) [place] # (Auto) Eos # (Auto) Baso # (Auto) Absolute Neuts (auto) Sodium Potassium Chloride Carbon Dioxide Anion Gap BUN Creatinine Est GFR ( Amer) Est GFR (Non-Af Amer) POC Glucose (mg/dL) 248 H 267 H Random Glucose Hemoglobin A1c Fructosamine Lactic Acid 2.8 H Uric Acid Calcium Phosphorus Magnesium Iron TIBC % Saturation Total Bilirubin Direct Bilirubin AST ALT Alkaline Phosphatase C-React Prot High Sens Total Protein Albumin Globulin Albumin/Globulin Ratio Triglycerides Cholesterol LDL Cholesterol Direct HDL Cholesterol 25-OH Vitamin D Total Free T4 Thyroxine (T4) TSH 3rd Generation 11/16/18 11/17/18 11/17/18 21:27 02:24 06:44 WBC RBC Hgb Hct MCV MCH MCHC RDW Plt Count MPV Neut % (Auto) Lymph % (Auto) [place] % (Auto) Eos % (Auto) Baso % (Auto) Lymph # (Auto) [place] # (Auto) Eos # (Auto) Baso # (Auto) Absolute Neuts (auto) Sodium Potassium Chloride Carbon Dioxide Anion Gap BUN Creatinine Est GFR ( Amer) Est GFR (Non-Af Amer) POC Glucose (mg/dL) 113 H 220 H Random Glucose Hemoglobin A1c Fructosamine Lactic Acid 1.6 Uric Acid Calcium Phosphorus Magnesium Iron TIBC % Saturation Total Bilirubin Direct Bilirubin AST ALT Alkaline Phosphatase C-React Prot High Sens Total Protein Albumin Globulin Albumin/Globulin Ratio Triglycerides Cholesterol LDL Cholesterol Direct HDL Cholesterol 25-OH Vitamin D Total Free T4 Thyroxine (T4) TSH 3rd Generation 11/17/18 11/17/18 11/17/18 07:00 07:00 07:00 WBC 17.5 H RBC 2.88 L Hgb 9.3 L Hct 28.9 L MCV 100.3 MCH 32.3 MCHC 32.2 RDW 15.5 H Plt Count 270 MPV 10.0 Neut % (Auto) 86.5 H Lymph % (Auto) 5.8 L [place] % (Auto) 7.5 H Eos % (Auto) 0.1 L Baso % (Auto) 0.1 Lymph # (Auto) 1.0 L [place] # (Auto) 1.3 H Eos # (Auto) 0.0 Baso # (Auto) 0.02 Absolute Neuts (auto) 15.15 H Sodium 136 Potassium 4.8 Chloride 101 Carbon Dioxide 20 L Anion Gap 20 BUN 47 H Creatinine 2.4 H Est GFR ( Amer) 32 Est GFR (Non-Af Amer) 27 POC Glucose (mg/dL) Random Glucose 223 H Hemoglobin A1c 8.6 H Fructosamine Lactic Acid Uric Acid Calcium 9.0 Phosphorus 3.5 Magnesium 2.1 Iron TIBC % Saturation Total Bilirubin 1.2 Direct Bilirubin 0.4 AST 105 H D ALT 31 Alkaline Phosphatase 74 C-React Prot High Sens Total Protein 7.0 Albumin 3.7 Globulin 3.3 Albumin/Globulin Ratio 1.1 Triglycerides 224 H Cholesterol 103 L LDL Cholesterol Direct 45 HDL Cholesterol 18 L 25-OH Vitamin D Total Free T4 Thyroxine (T4) TSH 3rd Generation 11/17/18 11/17/18 11/17/18 07:00 07:00 10:50 WBC RBC Hgb Hct MCV MCH MCHC RDW Plt Count MPV Neut % (Auto) Lymph % (Auto) [place] % (Auto) Eos % (Auto) Baso % (Auto) Lymph # (Auto) [place] # (Auto) Eos # (Auto) Baso # (Auto) Absolute Neuts (auto) Sodium Potassium Chloride Carbon Dioxide Anion Gap BUN Creatinine Est GFR ( Amer) Est GFR (Non-Af Amer) POC Glucose (mg/dL) Random Glucose Hemoglobin A1c Fructosamine Lactic Acid Uric Acid 6.8 Calcium Phosphorus Magnesium Iron 27 L TIBC 199 L % Saturation 13 L Total Bilirubin Direct Bilirubin AST ALT Alkaline Phosphatase C-React Prot High Sens Total Protein Albumin Globulin Albumin/Globulin Ratio Triglycerides Cholesterol LDL Cholesterol Direct HDL Cholesterol 25-OH Vitamin D Total 41.4 Free T4 Thyroxine (T4) TSH 3rd Generation 11/17/18 11:27 WBC RBC Hgb Hct MCV MCH MCHC RDW Plt Count MPV Neut % (Auto) Lymph % (Auto) [place] % (Auto) Eos % (Auto) Baso % (Auto) Lymph # (Auto) [place] # (Auto) Eos # (Auto) Baso # (Auto) Absolute Neuts (auto) Sodium Potassium Chloride Carbon Dioxide Anion Gap BUN Creatinine Est GFR ( Amer) Est GFR (Non-Af Amer) POC Glucose (mg/dL) 311 H Random Glucose Hemoglobin A1c Fructosamine Lactic Acid Uric Acid Calcium Phosphorus Magnesium Iron TIBC % Saturation Total Bilirubin Direct Bilirubin AST ALT Alkaline Phosphatase C-React Prot High Sens Total Protein Albumin Globulin Albumin/Globulin Ratio Triglycerides Cholesterol LDL Cholesterol Direct HDL Cholesterol 25-OH Vitamin D Total Free T4 Thyroxine (T4) TSH 3rd Generation
[2018-11-18] MEDS: Pantoprazole 40 mg EC Tab PO SCH (06:23)
[2018-11-18] MEDS: Insulin Human NPH 1 UNITS/0.01 ML SC SCH ×3 (07:00→16:42)
--- NOTE | 2018-11-18 07:30 | CON ---
DATE: 11/17/2018 LOCATION: The patient seen earlier today in room 575, bed 2. CHIEF COMPLAINT: Lower extremity foot pain of the left foot times several days. HISTORY OF PRESENT ILLNESS: This is a 73-year-old male with diabetes and dilated cardiomyopathy ejection fraction of 35%, hypertension, kidney disease, severe peripheral arterial disease, history of hernia repair, history of left second toe amputation, left popliteal stent placement, who was admitted with foot pain and was found to have infection of the foot and Infectious Disease consultation requested. The patient states he has low-grade fevers and occasional chills. No chest pain, shortness of breath, or cough. No abdominal pain, diarrhea, or constipation. REVIEW OF SYSTEMS: A 12-point review of systems was performed. PAST MEDICAL HISTORY: Significant for hypertension, diabetes, kidney disease, peripheral arterial disease, congestive heart failure, dilated cardiomyopathy, gout. PAST SURGICAL HISTORY: Significant for hernia surgery, left foot second toe amputation, and left popliteal stent. ALLERGIES: THE PATIENT HAS NO KNOWN ALLERGIES. MEDICATIONS AT HOME: Reviewed. PHYSICAL EXAMINATION GENERAL: The patient is in bed in no acute distress. VITAL SIGNS: Temperature 98, T-max 100.5, heart rate of 103, respiratory rate of 20, blood pressure 99/50. HEENT: Unremarkable. NECK: Supple. LUNGS: Decreased breath sounds. HEART: Normal S1, S2. ABDOMEN: Soft, nontender. EXTREMITIES: Examination of left foot reveal significant necrotic tissue, erythema and foul odorous involving mostly entire foot. LABORATORY EXAMINATION: Reveals white count of 16,000, hemoglobin of 10. Cultures are noted. Chemistry reveals a creatinine of 2.4. Microbiology reveals blood cultures show no growth. The patient had an MRI of the lower extremity, no evidence of osteomyelitis. The patient also had ultrasound which showed abnormal and chest x-ray, which was negative. ASSESSMENT AND PLAN: A 73-year-old male with sepsis, left foot cellulitis with amputation with renal insufficiency. Will treat the patient with Zyvox and meropenem. We will make further recommendations foot, culture, podiatric input, and vascular workup. Will follow with you. Tai Landaverde MD
[2018-11-18 08:12] LABS: BASO # 0.01 K/mm3 (0.0-2.0); BASO % 0.1 % (0.0-3.0); EOS % 0.2 % (1.5-5.0); HEMOGLOBIN 8.7 g/dL (14.0-18.0); LYMPH % 5.8 % (22.0-35.0); MEAN CELL VOLUME 97.8 fl (80.0-105.0); MEAN CORPUSCULAR HEMOGLOBIN 32.6 pg (25.0-35.0); MEAN CORPUSCULAR HGB CONC 33.3 g/dl (31.0-37.0); MEAN PLATELET VOLUME 10.1 fl (7.0-11.0); MONO # 1.8 (0.1-0.6); MONO % 10.6 % (1.0-6.0); RBC 2.67 10^6/uL (3.5-6.1); RED CELL DISTRIBUTION WIDTH 15.5 % (11.5-14.5); WHITE BLOOD COUNT 16.8 10^3/uL (4.5-11.0)
[2018-11-18 08:29] LABS: ALB/GLOB RATIO 1.1 (1.1-1.8); ALBUMIN 3.6 g/dL (3.0-4.8); BILIRUBIN,DIRECT 0.3 mg/dL (0.0-0.4); CALCIUM 9.1 mg/dL (8.4-10.5)
[2018-11-18] MEDS: Insulin Lispro (humaLOG) MEDIUM Coverage SC SCH ×3 (08:45→16:43)
[2018-11-18] MEDS: Cilostazol 50 mg Tab UD PO SCH ×2 (09:35→17:49)
[2018-11-18] MEDS: Multivitamin Vitamin B Complex (Nephro-Vite) Tab PO SCH (09:35)
[2018-11-18] MEDS: MEROPENEM 500 MG in NS 500 MG/50 ML BAG IVPB SCH ×2 (09:36→22:45)
--- NOTE | 2018-11-18 10:25 | PN ---
DATE: 11/18/2018 SUBJECTIVE: The patient is seen today in room 575, bed 2. The patient is seen lying in the bed. The patient was seen and examined with the patient's nurse, Mari, who has also acted as a day porter for us in Indonesian. The patient was explained about all the details, diagnostic test results and possible clinical situation and scenarios regarding the patient's condition and treatment options which was translated in Indonesian and explained to the patient in Indonesian by the patient's nurse and all questions concerned answered. The patient was seen and examined, lying in the bed in room 575 bed 2. The patient is alert, awake, responsive. Vital signs, T-max is 99.4 to 99.2. The patient is seen lying in the bed. The patient is alert, awake, responsive. The patient is comfortable.. The patient is in no distress. Overnight nurse's notes were reviewed. PHYSICAL EXAMINATION: VITAL SIGNS: T-max is 98.7, heart rate 98, blood pressure 114/67. HEENT: Head examination, normocephalic, atraumatic. HEENT examination shows pinkish pale conjunctivae. Anicteric sclerae. Dry oral mucosa. No neck rigidity. CHEST: Kyphosis. LUNGS: Examination shows no audible crackle, rales or wheezing. CARDIOVASCULAR: Shows S1, S2, regular rhythm. Positive systolic murmur at left sternal border, right second intercostal space, left second intercostal space. ABDOMEN: Soft, positive bowel sound, no palpable hepatosplenomegaly. GENITALIA: Male. RECTAL: Examination is deferred. EXTREMITY: Shows positive dressing of the left foot noted. MUSCULOSKELETAL: Examination shows a body mass index of 24.3. NEUROLOGIC: The patient is alert, awake, responsive, able to move upper and lower extremity without assistance. DIAGNOSTICS: 11/18/2018, WBC 16.8, hemoglobin and hematocrit 8.7 and 26.1, platelet 290, granulocytes 83% segs. Sodium 140, potassium 4.2, chloride 104, CO2 of 23, anion gap 17, BUN 56, creatinine 0.8, GFR 22, glucose 284. Fingerstick blood sugar 289, 286, 290. Calcium 9.1, phosphorus 3.5, magnesium 2.3. AST 98. Urine cultures, blood cultures are negative. MRI of the left foot shows no osteomyelitis, only erosive changes. IMPRESSION: 1. Left foot cellulitis versus gangrene versus pregangrenous state. 2. Sepsis. 3. Tachycardia. 4. Transient episodic hypotension. 5. Leukocytosis with granulocytosis 6. Elevated erythrocyte sedimentation rate of 122. 7. Normocytic anemia. 8. Chronic kidney disease stage 4 with acute kidney injury. 9. Uncontrolled noninsulin-requiring diabetes mellitus with hyperglycemia and hemoglobin A1c of 8.6. 10. Possible iron-deficiency. 11. Hypertriglyceridemia. 12. Elevated C-reactive protein of greater than 15. 13. Transient lactic acidosis. 14. Transaminitis. 15. Deconditioning. 16. Gait dysfunction. 17. Anemia with decreasing hemoglobin and hematocrit. 18. Metabolic acidosis. 19. Diabetic hypertensive chronic kidney disease. 20. Chronic kidney disease stage 3 without proteinuria. 21. Severe mitral and tricuspid regurgitation. 22. Systolic congestive heart failure. 23. Dilated ischemic cardiomyopathy, etiology undetermined. 1. Left foot cellulitis with diabetic foot disease and possible abscess versus possible osteomyelitis. 2. History of left foot second toe amputation. 3. Hypertension. 4. Tachycardia. 5. Fever. 6. Poor compliance and noncompliance. 7. Leukocytosis with granulocytosis. 8. Normocytic anemia. 9. Elevated erythrocyte sedimentation rate of 122. 10. Chronic kidney disease, stage IV with acute kidney injury. 11. Transient lactic acidosis. 12. History of hyperuricemia. 13. Hypertriglyceridemia. 14. Aortic calcification. 15. Bilateral lower extremity popliteal trifurcation and tibial peripheral vascular disease. 16. Left foot first metatarsophalangeal joint bony destruction and sclerosis, chronic osteomyelitis. 17. 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 18. 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 19. Sinus tachycardia with left anterior hemiblock. 20. Deconditioning. 21. History of poor compliance. 22. Chronic dilated ischemic cardiomyopathy with ejection fraction of . 23. History of hypertension. 24. History of heart failure with reduced ejection fraction of 35%. 25. Pulmonary hypertension with right ventricular systolic pressure of 40 mmHg. 26. Left ventricular global hypokinesis and moderately impaired left ventricular systolic function. 27. Mild aortic regurgitation. 28. Moderate to severe mitral regurgitation. 29. Moderate tricuspid regurgitation. 30. History of constipation. 31. Hypovitaminosis D. 32. History of iron-deficiency anemia. 33. Prostatic hypertrophy. 34. Insulin-requiring diabetes mellitus. 35. Hyperlipidemia. 36. History of peripheral vascular disease. 37. Hyperuricemia. 1. Left foot diabetic foot ulceration versus left foot abscess versus left foot toe osteomyelitis. 2. Tachycardia. 3. Leukocytosis with granulocytosis. 4. Questionable systemic inflammatory response syndrome. 5. Uncontrolled diabetes mellitus with hyperglycemia. 6. Chronic kidney disease stage IV. 7. Mild transaminitis. 8. History of hypertension. 9. Hyperlipidemia. 10. History of prostatic hypertrophy. 11. History of iron-deficiency anemia. 12. History of hypovitaminosis D. 13. History of dilated cardiomyopathy. 14. History of pulmonary hypertension. 15. History of moderate tricuspid regurgitation and mitral regurgitation. 16. Hyperuricemia. PLAN AT THIS TIME: The patient has been ordered repeat labs for the morning. The patient has been ordered type and crossmatch. The patient has been ordered repeat CBC. Current consultation, Interventional Radiology, Podiatry, Cardiology, Gastroenterology for anemia, Infectious Disease, Nephrology, clinical nurse educator, TCU evaluation. The patient received Aranesp 40 mcg x1 dose. The patient is on Drisdol 50,000 weekly, Ecotrin 81 daily, ferrous sulfate 325 mg twice a day, Flomax 0.4 mg daily, heparin 5000 subcu every 8 hours, Humalog medium-dose sliding scale coverage before meals and the patient insulin increased to NPH 50 units with breakfast and dinner, Lipitor 20 mg daily, Lopressor 25 mg p.o. every 8 hours, meropenem 500 IV every 12 hours, Nephro-Sumit 1 tablet daily, Pletal 50 mg twice a day, Protonix 40 mg daily, sodium bicarb 650 mg twice a day, Tylenol p.r.n., Zofran 4 mg IV every 4 hours p.r.n., allopurinol 100 mg daily, Zyvox 600 mg twice a day at present. The patient has been explained about the details of his medical condition at length through the day porter who has translated all the details in Indonesian to the patient, which he acknowledged understand. The patient also understands all the risk and consequences associated with his medical condition including amputation, renal failure and poor heart condition was all discussed and explained to the patient at length and all questions concerned answered. The patient's further management will be dependent upon the patient's clinical condition, hemodynamic status and as per the patient's response to therapeutic intervention, as per the patient's diagnostic test results and as per recommendation by all the physicians involved in the care of the patient. Dictated and electronically signed, not read. Niranjan Ling MD [facility]
[2018-11-18] MEDS: Darbepoetin Alfa 40 mcg/ml Inj SC SCH (11:21)
[2018-11-18] MEDS: Sodium Chloride 0.9% 1,000 ML IV SCH (13:29)
--- NOTE | 2018-11-18 14:10 | CP.PCM.PN ---
Subjective - Date & Time of Evaluation Date of Evaluation: 11/18/18 Time of Evaluation: 14:09 - Subjective Subjective: Nephrology Consultation Note: Assessment: Stable Acute Kidney Injury (N17.9) likely due to sepsis with cellulitis metabolic acidosis Diabetic chronic Kidney Disease (E11.22) Hypertensive Chronic Kidney Disease (I12.9) Chronic Kidney Disease (N18.3) Stage 3 without proteinuria (R80.9) likely due to HTN/vasc disease Anemia (D64.9), DM, gout PVD severe MR/TR with sys CHF LVEF 35-40% Plan No acute need for renal replacement therapy at this time. Hypertension control with meds as ordered. Maintain hemodynamics stable. Avoid hypotension. Patient not on ACEI/ARB due to EMIL and hyperkalemia tendency. consider to add once stable. Monitor Input/Output, daily weights and renal function with basic metabolic panel continue with iron and MVI. PRBC as needed. dose of aransep 40 mcg 11/17/18 vit d can be changed to once a month as last level 41 continue with flomax start IVF as NS @ 100 ml/hr if pt need angiogram, he will be at increased risk of contrast nephropathy. suggest IVF to reduce the risk of EMIL. Dose meds/antibiotics for reduced GFR. Avoid fleets enema/magnesium based laxatives. Avoid nephrotoxins/NSAIDs/ iodinated contrast (unless needed emergently) Glycemic control Further work up/management as per primary team Thanks for allowing me to participate in care of your patient. Will follow patient with you. Please call if any Qs. had d/w team Dr Anjum Padron Office: [phone] Chief Complaint; Foot ulcer Reason for consult: Acute Kidney Injury HPI: Pt is a 73 M with hx of diabetes Mellitus (30 years), hypertension (years) PVD, Gout CKD 3 with baseline cr 1.8-1.9 presented with complaints of foot ulcer, being managed for cellulitis. seen for EMIL and pt also with PVD Denies OTC/herbal meds or NSAIDs. No recent iodinated contrast exposure. Noted obvious episodes of low BP. pt still not aware about kidney disease in past ROS: Cardiovascular: No chest pain. Pulmonary: No shortness of breath Gastrointestinal: denies abdominal pain No nausea. No vomiting. Genitourinary: No pain while urinating. Denies blood in urine. sometimes feels hesitancy. All other negative except as mentioned in HPI Physical Examination: General Appearance: Comfortable, in no acute respiratory distress, co-operative . Vitals reviewed and noted as below Head; Atraumatic, normocephalic ENT: no ulcers no thrush. Tongue is midline. Oropharynx: no rash or ulcers. EYES: Pupils are equal, round and reactive to light accommodation. Eye muscles and extra-ocular movement intact. Sclera is anicteric. Neck; supple no lymphadenopathy, no thyromegaly or bruit Lungs: Normal respiratory rate/effort. Breath sounds bilateral equal and clear Heart: Normal rate. s1s2 normal. No rub or gallop. Extremities: no edema. No varicose veins. left foot in dressing Neurological: Patient is alert, awake and oriented to person, place and time. No focal deficit. Strength bilateral appropriate and equal Skin: Warm and dry. Normal turgor. No rash. Palpitation: Normal elasticity for age Abdomen: Abdomen is soft. Bowel sounds +. There is no abdominal tenderness, no guarding/rigidity no organomegaly Psych: lack insight and normal affect/mood MSK: no joint tenderness or swelling. Digits and nails normal, no deformity : kidney or bladder not palpable. Labs/imaging reviewed. Past medical history, past surgical history, family history, social history, allergy reviewed and noted as below Family hx: no hx of CKD. Rest non-contributory Phos 3.5 TSAT 13% Vit D 41 PTH 49 LDL 103 kappa/lambda 3.4 uric acid 7.5 renal cyst left side Objective - Vital Signs/Intake and Output Vital Signs (last 24 hours): Temp Pulse Resp BP Pulse Ox 98.7 F 98 H 18 106/61 97 11/18/18 06:00 11/18/18 09:36 11/18/18 06:00 11/18/18 09:36 11/18/18 06:00 Intake and Output: 11/18/18 11/18/18 06:59 18:59 Intake Total 620 Output Total 200 Balance 420 - Medications Medications: Current Medications Acetaminophen (Tylenol 325mg Tab) 650 mg PO Q6H PRN PRN Reason: Pain, moderate (4-7) Acetaminophen (Tylenol 650 Mg Supp) 650 mg RC Q6H PRN PRN Reason: TEMP>=99.5F Allopurinol (Zyloprim) 100 mg PO DAILY [facility] Last Admin: 11/18/18 09:35 Dose: 100 mg Aspirin (Ecotrin) 81 mg PO 0800 [facility] Last Admin: 11/18/18 09:35 Dose: 81 mg Atorvastatin Calcium (Lipitor) 20 mg PO DIN [facility] Last Admin: 11/17/18 17:20 Dose: 20 mg Cilostazol (Pletal) 50 mg PO BID [facility] Last Admin: 11/18/18 09:35 Dose: 50 mg Darbepoetin Arturo (Aranesp) 40 mcg SC QWK [facility] Last Admin: 11/18/18 11:21 Dose: 40 mcg Dextrose (Dextrose 50% Inj) 0 ml IV STAT PRN; Protocol PRN Reason: Hypoglycemia Protocol Docusate Sodium (Colace) 100 mg PO TID [facility] Last Admin: 11/18/18 09:35 Dose: 100 mg Ergocalciferol (Drisdol 50,000 Intl Units Cap) 1 cap PO Q7D [facility] Last Admin: 11/16/18 17:33 Dose: 1 cap Ferrous Sulfate (Feosol) 324 mg PO BID [facility] Last Admin: 11/18/18 09:35 Dose: 324 mg Heparin Sodium (Porcine) (Heparin) 5,000 units SC Q8 [facility]; Protocol Last Admin: 11/18/18 06:23 Dose: 5,000 units Dextrose (Dextrose 5% In Water 1000 Ml) 1,000 mls @ 0 mls/hr IV .Q0M PRN; Protocol PRN Reason: Hypoglycemia Protocol Meropenem/Sodium Chloride (Merrem Iv 500 Mg/Ns 50 Ml) 500 mg in 50 mls @ 100 mls/hr IVPB Q12 [facility]; Protocol Last Admin: 11/18/18 09:36 Dose: 100 mls/hr Sodium Chloride (Sodium Chloride 0.9%) 1,000 mls @ 100 mls/hr IV .Q10H [facility] Last Admin: 11/18/18 13:29 Dose: 100 mls/hr Insulin Human Lispro (Humalog Med) 0 units SC AC [facility]; Protocol Last Admin: 11/18/18 11:25 Dose: Not Given Insulin Human NPH (Humulin N) 15 units SC ACBD [facility] Last Admin: 11/18/18 07:28 Dose: Not Given Linezolid (Zyvox) 600 mg PO BID [facility]; Protocol Stop: 11/24/18 20:20 Last Admin: 11/18/18 09:35 Dose: 600 mg Metoprolol Tartrate (Lopressor) 25 mg PO Q8H [facility] Last Admin: 11/18/18 09:36 Dose: 25 mg Ondansetron HCl (Zofran Inj) 4 mg IVP Q4H PRN PRN Reason: Nausea/Vomiting Pantoprazole Sodium (Protonix Ec Tab) 40 mg PO 0600 [facility] Last Admin: 11/18/18 06:23 Dose: 40 mg Sodium Bicarbonate (Sodium Bicarbonate Tab) 650 mg PO BID [facility] Last Admin: 11/18/18 13:30 Dose: Not Given Tamsulosin HCl (Flomax) 0.4 mg PO 1830 [facility] Last Admin: 11/17/18 17:30 Dose: 0.4 mg Vitamin B Complex/Vit C/Folic Acid (Nephro-Sumit) 1 tab PO 0800 [facility] Last Admin: 11/18/18 09:35 Dose: 1 tab - Labs Labs: 11/18/18 08:00 11/18/18 08:00 PT 13.7 SECONDS (9.4-12.5) H 11/16/18 12:40 INR 1.21 11/16/18 12:40 APTT 28.3 Seconds (26.9-38.3) 11/16/18 12:40
--- NOTE | 2018-11-18 15:39 | CP.PCM.PN ---
Subjective - Date & Time of Evaluation Date of Evaluation: 11/18/18 Time of Evaluation: 15:39 - Subjective Subjective: Podiatry progress note for Dr. Heller, 73 year old male with a PMH of PAD s/p 2nd left toe amputation (09/2017), DM2, CHFrEF, gout and arthritis seen and evaluated with Dr. Heller for left foot cellulitis with significant skin loss, but recently worsening. Patient denies any acute overnight events. Patient is aware he is at [facility] at this time. Patient complains of sharp shooting pain in his leg and foot Objective - Vital Signs/Intake and Output Vital Signs (last 24 hours): Temp Pulse Resp BP Pulse Ox 98.9 F 110 H 17 94/58 L 95 11/18/18 14:00 11/18/18 14:00 11/18/18 14:00 11/18/18 14:00 11/18/18 14:00 Intake and Output: 11/18/18 11/18/18 06:59 18:59 Intake Total 620 Output Total 200 Balance 420 - Medications Medications: Current Medications Acetaminophen (Tylenol 325mg Tab) 650 mg PO Q6H PRN PRN Reason: Pain, moderate (4-7) Acetaminophen (Tylenol 650 Mg Supp) 650 mg RC Q6H PRN PRN Reason: TEMP>=99.5F Allopurinol (Zyloprim) 100 mg PO DAILY [facility] Last Admin: 11/18/18 09:35 Dose: 100 mg Aspirin (Ecotrin) 81 mg PO 0800 [facility] Last Admin: 11/18/18 09:35 Dose: 81 mg Atorvastatin Calcium (Lipitor) 20 mg PO DIN [facility] Last Admin: 11/17/18 17:20 Dose: 20 mg Cilostazol (Pletal) 50 mg PO BID [facility] Last Admin: 11/18/18 09:35 Dose: 50 mg Darbepoetin Arturo (Aranesp) 40 mcg SC QWK [facility] Last Admin: 11/18/18 11:21 Dose: 40 mcg Dextrose (Dextrose 50% Inj) 0 ml IV STAT PRN; Protocol PRN Reason: Hypoglycemia Protocol Docusate Sodium (Colace) 100 mg PO TID [facility] Last Admin: 11/18/18 15:08 Dose: 100 mg Ergocalciferol (Drisdol 50,000 Intl Units Cap) 1 cap PO Q7D [facility] Last Admin: 11/16/18 17:33 Dose: 1 cap Ferrous Sulfate (Feosol) 324 mg PO BID [facility] Last Admin: 11/18/18 09:35 Dose: 324 mg Heparin Sodium (Porcine) (Heparin) 5,000 units SC Q8 [facility]; Protocol Last Admin: 11/18/18 15:08 Dose: 5,000 units Dextrose (Dextrose 5% In Water 1000 Ml) 1,000 mls @ 0 mls/hr IV .Q0M PRN; Protocol PRN Reason: Hypoglycemia Protocol Meropenem/Sodium Chloride (Merrem Iv 500 Mg/Ns 50 Ml) 500 mg in 50 mls @ 100 mls/hr IVPB Q12 [facility]; Protocol Last Admin: 11/18/18 09:36 Dose: 100 mls/hr Sodium Chloride (Sodium Chloride 0.9%) 1,000 mls @ 100 mls/hr IV .Q10H [facility] Last Admin: 11/18/18 13:29 Dose: 100 mls/hr Insulin Human Lispro (Humalog Med) 0 units SC AC [facility]; Protocol Last Admin: 11/18/18 11:25 Dose: Not Given Insulin Human NPH (Humulin N) 15 units SC ACBD [facility] Last Admin: 11/18/18 07:28 Dose: Not Given Linezolid (Zyvox) 600 mg PO BID [facility]; Protocol Stop: 11/24/18 20:20 Last Admin: 11/18/18 09:35 Dose: 600 mg Metoprolol Tartrate (Lopressor) 25 mg PO Q8H [facility] Last Admin: 11/18/18 09:36 Dose: 25 mg Ondansetron HCl (Zofran Inj) 4 mg IVP Q4H PRN PRN Reason: Nausea/Vomiting Pantoprazole Sodium (Protonix Ec Tab) 40 mg PO 0600 [facility] Last Admin: 11/18/18 06:23 Dose: 40 mg Sodium Bicarbonate (Sodium Bicarbonate Tab) 650 mg PO BID [facility] Last Admin: 11/18/18 13:30 Dose: Not Given Tamsulosin HCl (Flomax) 0.4 mg PO 1830 [facility] Last Admin: 11/17/18 17:30 Dose: 0.4 mg Vitamin B Complex/Vit C/Folic Acid (Nephro-Sumit) 1 tab PO 0800 [facility] Last Admin: 11/18/18 09:35 Dose: 1 tab - Labs Labs: 11/18/18 08:00 11/18/18 08:00 PT 13.7 SECONDS (9.4-12.5) H 11/16/18 12:40 INR 1.21 11/16/18 12:40 APTT 28.3 Seconds (26.9-38.3) 11/16/18 12:40 - Constitutional Appears: Well, Non-toxic, No Acute Distress - Head Exam Head Exam: ATRAUMATIC, NORMOCEPHALIC - Extremities Exam Additional comments: Left Lower Extremity Exam VASC: DP and Pt non-palpable, CFT delayed, significant edema to the left forefoot, TG warm to warm NEURO: diminished sensation with tingling DERM: significant skin loss with erythema to the forefoot, increasing gangrenous changes noted, positive drainage noted, no obvious wounds that probe to bone, tunnel or track, positive malodor, significant pain on palpation - Neurological Exam Neurological Exam: Alert, Awake, Oriented x3 - Psychiatric Exam Psychiatric exam: Normal Affect, Normal Mood Assessment and Plan - Assessment and Plan (Free Text) Assessment: 73 y/o male patient seen and evaluated for left foot wound with cellulitis Plan: Patient seen and evaluated with Dr. Milton Heller Plan discussed with Dr. Heller Chart, labs and vitals reviewed- WBC 16.8 ESR 122, CRP >15.0 Left Foot X-ray: chronic osteo, no soft tissue emphysema noted at this time Wound Culture: Gram neg rods, group B strep FAHAD/PVR: abnormal FAHAD/PVR Ordered Left foot MRI- limited study, no osteomyelitis Infectious disease consult, recommendations appreciated Vascular consult for Dr. Lujan, recommendations appreciated Cardiology recommendations appreciated- as per Dr. Murrell, patient at high risk for any anesthesia and patient has refused all workup As per Dr Heller, no plan for podiatric intervention at this time- will continue to monitor- pending vascular workup and vascular intervention as patient has non-palpable pulses and would not post podiatric procedures Podiatry will continue to follow and monitor patient
--- NOTE | 2018-11-18 16:06 | PN ---
DATE: 11/18/2018 CARDIOLOGY FOLLOWUP SUBJECTIVE: The patient is in no distress. PHYSICAL EXAMINATION: VITAL SIGNS: Blood pressure 106/61 and heart rate is in 90's. NECK: Negative JVD. LUNGS: Without rales. Rest of the exam is unchanged. LABORATORY DATA: Hemoglobin is 8.7. BUN and creatinine 56 and 2.8. IMPRESSION: 1. Cellulitis in lower extremities. 2. 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 3. High probability for coronary artery disease. 4. Renal insufficiency. 5. Anemia. 6. Peripheral vascular disease. Given these findings, the patient remains high risk for any anesthesia and surgery. Milton Murrell MD
--- NOTE | 2018-11-18 22:01 | PN ---
DATE: 11/18/2018 SUBJECTIVE: The patient is bed, in no acute distress, nontoxic, was seen earlier today. PHYSICAL EXAMINATION VITAL SIGNS: Temperature of 98, initially patient had a T max of 100.5, blood pressure is 115/60,respiratory rate 18, heart rate of 110. HEENT: Unremarkable. NECK: Supple. LUNGS: Decreased breath sounds. HEART: Normal S1 and S2. ABDOMEN: Soft and nontender. LABORATORY DATA: Reveals a white count of 16.8, hemoglobin of 8, and platelets of 290. Chemistries reveals a BUN of 56 and creatinine of 2.8. Microbiology reveals a left leg culture gram-negative rods and group B Strep and the blood cultures are negative. MEDICATIONS: Review of orders; patient is on meropenem and the Zyvox. Podiatry note is reviewed. ASSESSMENT AND PLAN: A 73-year-old male who was seen earlier today in room 575, bed 2, was admitted with sepsis with a left foot cellulitis, renal insufficiency, on Zyvox and meropenem, now I saw with group B Streptococcus and gram-negative rods. The blood culture are negative. The left leg cultures are growing gram-negative rods. However, the patient continues to have persistent leukocytosis. We will check on tomorrow's WBC's and will follow with you. Patient did have an MRI, which is reviewed. Tai Landaverde MD
[2018-11-19] MEDS: Sodium Chloride 0.9% 1,000 ML IV SCH ×2 (01:54→13:46)
[2018-11-19] MEDS: Pantoprazole 40 mg EC Tab PO SCH (05:38)
--- NOTE | 2018-11-19 07:05 | CP.PCM.PN ---
Subjective - Date & Time of Evaluation Date of Evaluation: 11/19/18 Time of Evaluation: 18:26 - Subjective Subjective: Podiatry progress note for Dr. Heller, 73 year old male with a PMH of PAD s/p 2nd left toe amputation (09/2017), DM2, CHFrEF, gout and arthritis seen and evaluated with Dr. Heller for left foot cellulitis with significant skin loss, but recently worsening. Patient denies any acute overnight events. Patient is aware he is at [facility] at this time. Patient complains of sharp shooting pain in his leg and foot Objective - Vital Signs/Intake and Output Vital Signs (last 24 hours): Temp Pulse Resp BP Pulse Ox 99.7 F H 106 H 20 116/68 97 11/18/18 21:10 11/19/18 05:46 11/18/18 21:10 11/19/18 05:46 11/18/18 21:10 Intake and Output: 11/19/18 11/19/18 06:59 18:59 Intake Total 620 Output Total 150 Balance 470 - Medications Medications: Current Medications Acetaminophen (Tylenol 325mg Tab) 650 mg PO Q6H PRN PRN Reason: Pain, moderate (4-7) Acetaminophen (Tylenol 650 Mg Supp) 650 mg RC Q6H PRN PRN Reason: TEMP>=99.5F Allopurinol (Zyloprim) 100 mg PO DAILY [facility] Last Admin: 11/18/18 09:35 Dose: 100 mg Aspirin (Ecotrin) 81 mg PO 0800 [facility] Last Admin: 11/18/18 09:35 Dose: 81 mg Atorvastatin Calcium (Lipitor) 20 mg PO DIN [facility] Last Admin: 11/18/18 16:43 Dose: 20 mg Cilostazol (Pletal) 50 mg PO BID [facility] Last Admin: 11/18/18 17:49 Dose: 50 mg Darbepoetin Arturo (Aranesp) 40 mcg SC QWK [facility] Last Admin: 11/18/18 11:21 Dose: 40 mcg Dextrose (Dextrose 50% Inj) 0 ml IV STAT PRN; Protocol PRN Reason: Hypoglycemia Protocol Docusate Sodium (Colace) 100 mg PO TID [facility] Last Admin: 11/18/18 17:49 Dose: 100 mg Ergocalciferol (Drisdol 50,000 Intl Units Cap) 1 cap PO Q7D [facility] Last Admin: 11/16/18 17:33 Dose: 1 cap Ferrous Sulfate (Feosol) 324 mg PO BID [facility] Last Admin: 11/18/18 17:49 Dose: 324 mg Heparin Sodium (Porcine) (Heparin) 5,000 units SC Q8 [facility]; Protocol Last Admin: 11/19/18 05:39 Dose: 5,000 units Dextrose (Dextrose 5% In Water 1000 Ml) 1,000 mls @ 0 mls/hr IV .Q0M PRN; Protocol PRN Reason: Hypoglycemia Protocol Meropenem/Sodium Chloride (Merrem Iv 500 Mg/Ns 50 Ml) 500 mg in 50 mls @ 100 mls/hr IVPB Q12 [facility]; Protocol Last Admin: 11/18/18 22:45 Dose: 100 mls/hr Sodium Chloride (Sodium Chloride 0.9%) 1,000 mls @ 100 mls/hr IV .Q10H [facility] Last Admin: 11/19/18 01:54 Dose: Not Given Insulin Human Lispro (Humalog Med) 0 units SC AC [facility]; Protocol Last Admin: 11/18/18 16:43 Dose: 7 units Insulin Human NPH (Humulin N) 15 units SC ACBD [facility] Last Admin: 11/18/18 16:42 Dose: 15 unit Linezolid (Zyvox) 600 mg PO BID [facility]; Protocol Stop: 11/24/18 20:20 Last Admin: 11/18/18 17:48 Dose: 600 mg Metoprolol Tartrate (Lopressor) 25 mg PO Q8H [facility] Last Admin: 11/19/18 05:46 Dose: 25 mg Ondansetron HCl (Zofran Inj) 4 mg IVP Q4H PRN PRN Reason: Nausea/Vomiting Pantoprazole Sodium (Protonix Ec Tab) 40 mg PO 0600 [facility] Last Admin: 11/19/18 05:38 Dose: 40 mg Sodium Bicarbonate (Sodium Bicarbonate Tab) 650 mg PO BID [facility] Last Admin: 11/18/18 17:48 Dose: 650 mg Tamsulosin HCl (Flomax) 0.4 mg PO 1830 [facility] Last Admin: 11/18/18 17:48 Dose: 0.4 mg Vitamin B Complex/Vit C/Folic Acid (Nephro-Sumit) 1 tab PO 0800 [facility] Last Admin: 11/18/18 09:35 Dose: 1 tab - Labs Labs: 11/18/18 08:00 11/18/18 08:00 PT 13.7 SECONDS (9.4-12.5) H 11/16/18 12:40 INR 1.21 11/16/18 12:40 APTT 28.3 Seconds (26.9-38.3) 11/16/18 12:40 - Constitutional Appears: Well, Non-toxic, No Acute Distress - Head Exam Head Exam: ATRAUMATIC, NORMOCEPHALIC - Extremities Exam Additional comments: Left Lower Extremity Exam VASC: DP and Pt non-palpable, CFT delayed, significant edema to the left forefoot, TG warm to warm NEURO: diminished sensation with tingling DERM: significant skin loss with erythema to the forefoot, increasing gangrenous changes noted, positive drainage noted, no obvious wounds that probe to bone, tunnel or track, positive malodor, significant pain on palpation - Neurological Exam Neurological Exam: Alert, Awake, Oriented x3 - Psychiatric Exam Psychiatric exam: Normal Affect, Normal Mood Assessment and Plan - Assessment and Plan (Free Text) Assessment: 73 y/o male patient seen and evaluated for left foot wound with cellulitis Plan: Patient seen and evaluated with Dr. Milton Heller Plan discussed with Dr. Heller Chart, labs and vitals reviewed- WBC 16.8 ESR 122, CRP >15.0 Left Foot X-ray: chronic osteo, no soft tissue emphysema noted at this time Wound Culture: Gram neg rods, group B strep FAHAD/PVR: abnormal FAHAD/PVR Ordered Left foot MRI- limited study, no osteomyelitis Infectious disease consult, recommendations appreciated Vascular consult for Dr. Lujan, recommendations appreciated Cardiology recommendations appreciated- as per Dr. Murrell, patient at high risk for any anesthesia and patient has refused all workup As per Dr Heller, no plan for podiatric intervention at this time- will continue to monitor Refer to Dr. Heller's note for further information Podiatry will continue to follow and monitor patient
[2018-11-19 07:50] LABS: BASO # 0.02 K/mm3 (0.0-2.0); BASO % 0.1 % (0.0-3.0); EOS # 0.1 (0.0-0.7); EOS % 0.6 % (1.5-5.0); HEMOGLOBIN 8.3 g/dL (14.0-18.0); LYMPH # 1.1 (1.2-3.4); LYMPH % 7.4 % (22.0-35.0); MEAN CORPUSCULAR HEMOGLOBIN 32.7 pg (25.0-35.0); MEAN CORPUSCULAR HGB CONC 33.3 g/dl (31.0-37.0); MEAN PLATELET VOLUME 10.2 fl (7.0-11.0); MONO # 1.5 (0.1-0.6); MONO % 10.4 % (1.0-6.0); RBC 2.54 10^6/uL (3.5-6.1); RED CELL DISTRIBUTION WIDTH 15.3 % (11.5-14.5); WHITE BLOOD COUNT 14.3 10^3/uL (4.5-11.0)
[2018-11-19 08:05] LABS: ALB/GLOB RATIO 1.1 (1.1-1.8); ALBUMIN 3.4 g/dL (3.0-4.8); BILIRUBIN,DIRECT 0.3 mg/dL (0.0-0.4); CALCIUM 8.7 mg/dL (8.4-10.5)
--- NOTE | 2018-11-19 08:19 | CON ---
DATE OF CONSULTATION: 11/19/2018 GASTROENTEROLOGY CONSULTATION REQUESTING PHYSICIAN: Dr. Ling. REASON FOR CONSULTATION: I have been asked to see this 73-year-old male with longstanding history of diabetes mellitus, peripheral vascular disease, chronic kidney disease, gout, who is admitted to the hospital with left foot pain and cellulitis with purulent drainage from his left foot for several weeks. The patient has a history of ischemic cardiomyopathy. He has refused any further workup with Cardiology. I have been asked to see this patient for anemia. His CBC on admission to the hospital revealed a hemoglobin of 10.3, this morning it is 8.7. He denies any rectal bleeding, melena, nausea, or vomiting. Stool for occult blood is negative. A CBC back in 06/2018 revealed a hemoglobin of 9.7. His current hemoglobin is not far off from his baseline. He denies any abdominal pain, nausea, vomiting. PAST MEDICAL HISTORY: As above. Again, he has a history of ischemic cardiomyopathy, diabetes mellitus, hypertension, peripheral vascular disease, chronic kidney disease, gout. PAST SURGICAL HISTORY: Notable for amputation of second left toe, hernia repair. SOCIAL HISTORY: He is a former cigarette smoker and alcohol user. FAMILY HISTORY: Noncontributory. REVIEW OF SYSTEMS: Fourteen-point review of systems is notable for left foot pain and drainage. MEDICATIONS AT HOME: Include Flomax, pantoprazole, metoprolol, glipizide, ferrous sulfate, ergocalciferol, docusate, Lotrisone, Pletal, atorvastatin, Ecotrin, allopurinol, and acetaminophen. He also takes a vitamin B complex. PHYSICAL EXAMINATION: GENERAL: Elderly male, lying in bed, in no distress. VITAL SIGNS: Reveal a temperature of 99.7, blood pressure 116/68, heart rate of 106. HEENT: Reveal sclerae to be white. Conjunctivae pale. NECK: Supple. CHEST: Reveal lungs to be clear. HEART: Exam reveals regular rate and rhythm. ABDOMEN: Soft, nontender. EXTREMITIES: Show left foot in a dressing. There is obvious greenish discharge from his left foot. It is foul smelling. LABORATORY DATA: Revealed a white blood cell count of 16.8, hemoglobin 8.7. Chemistries reveal BUN 56, creatinine 2.8, ferritin is elevated at 593, percent iron saturation is 13%. Stool for occult blood is negative. IMPRESSION: A 73-year-old male with multiple comorbidities including ischemic cardiomyopathy with an ejection fraction of 30% with chronic kidney disease, peripheral artery disease, longstanding diabetes mellitus, hypertension, and chronic kidney disease, admitted with cellulitis of the left foot with purulent foul-smelling drainage. He is refusing any further cardiac workup. Cardiology has stated that he is at high risk for anesthesia. I suspect that his anemia is that of chronic disease. Again, stool for occult blood was negative. RECOMMENDATIONS: 1. Follow serial hematocrits. 2. Transfuse packed red blood cells as needed. 3. Given his multiple comorbidities and high risk for anesthesia, no plans for endoscopy or colonoscopy at this time. Gómez Johnson MD
[2018-11-19] MEDS: Insulin Lispro (humaLOG) MEDIUM Coverage SC SCH ×3 (08:44→17:13)
[2018-11-19] MEDS: Insulin Human NPH 1 UNITS/0.01 ML SC SCH ×2 (08:45→17:12)
[2018-11-19] MEDS: MEROPENEM 500 MG in NS 500 MG/50 ML BAG IVPB SCH ×2 (09:54→21:43)
[2018-11-19] MEDS: Multivitamin Vitamin B Complex (Nephro-Vite) Tab PO SCH (09:55)
[2018-11-19] MEDS: Cilostazol 50 mg Tab UD PO SCH ×2 (09:55→18:11)
[2018-11-19 10:58] LABS: GLYCOMARK(R) 12.3 mcg/mL (7.3-36.6)
--- NOTE | 2018-11-19 13:21 | CP.PCM.PN ---
Subjective - Date & Time of Evaluation Date of Evaluation: 11/19/18 Time of Evaluation: 13:20 - Subjective Subjective: Nephrology Consultation Note: Assessment: Stable Acute Kidney Injury (N17.9) likely due to sepsis with cellulitis metabolic acidosis Diabetic chronic Kidney Disease (E11.22) Hypertensive Chronic Kidney Disease (I12.9) Chronic Kidney Disease (N18.3) Stage 3 without proteinuria (R80.9) likely due to HTN/vasc disease Anemia (D64.9), DM, gout PVD severe MR/TR with sys CHF LVEF 35-40% Plan No acute need for renal replacement therapy at this time. Hypertension control with meds as ordered. Maintain hemodynamics stable. Avoid hypotension. Patient not on ACEI/ARB due to EMIL and hyperkalemia tendency. consider to add once stable. Monitor Input/Output, daily weights and renal function with basic metabolic panel continue with iron and MVI. PRBC as needed. dose of aransep 40 mcg 11/17/18 vit d can be changed to once a month as last level 41 continue with flomax continue with IVF as NS @ 100 ml/hr if pt need angiogram, he will be at increased risk of contrast nephropathy. suggest IVF to reduce the risk of EMIL. Dose meds/antibiotics for reduced GFR. Avoid fleets enema/magnesium based laxatives. Avoid nephrotoxins/NSAIDs/ iodinated contrast (unless needed emergently) Glycemic control Further work up/management as per primary team Thanks for allowing me to participate in care of your patient. Will follow patient with you. Please call if any Qs. had d/w team Dr Anjum Padron Office: [phone] Chief Complaint; Foot ulcer Reason for consult: Acute Kidney Injury HPI: Pt is a 73 M with hx of diabetes Mellitus (30 years), hypertension (years) PVD, Gout CKD 3 with baseline cr 1.8-1.9 presented with complaints of foot ulcer, being managed for cellulitis. seen for EMIL and pt also with PVD Denies OTC/herbal meds or NSAIDs. No recent iodinated contrast exposure. Noted obvious episodes of low BP. pt still not aware about kidney disease in past ROS: Cardiovascular: No chest pain. Pulmonary: No shortness of breath Gastrointestinal: denies abdominal pain No nausea. No vomiting. Genitourinary: No pain while urinating. Denies blood in urine. sometimes feels hesitancy. All other negative except as mentioned in HPI Physical Examination: General Appearance: Comfortable, in no acute respiratory distress, co-operative . Vitals reviewed and noted as below Head; Atraumatic, normocephalic ENT: no ulcers no thrush. Tongue is midline. Oropharynx: no rash or ulcers. EYES: Pupils are equal, round and reactive to light accommodation. Eye muscles and extra-ocular movement intact. Sclera is anicteric. Neck; supple no lymphadenopathy, no thyromegaly or bruit Lungs: Normal respiratory rate/effort. Breath sounds bilateral equal and clear Heart: Normal rate. s1s2 normal. No rub or gallop. Extremities: no edema. No varicose veins. left foot in dressing Neurological: Patient is alert, awake and oriented to person, place and time. No focal deficit. Strength bilateral appropriate and equal Skin: Warm and dry. Normal turgor. No rash. Palpitation: Normal elasticity for age Abdomen: Abdomen is soft. Bowel sounds +. There is no abdominal tenderness, no guarding/rigidity no organomegaly Psych: lack insight and normal affect/mood MSK: no joint tenderness or swelling. Digits and nails normal, no deformity : kidney or bladder not palpable. Labs/imaging reviewed. Past medical history, past surgical history, family history, social history, allergy reviewed and noted as below Family hx: no hx of CKD. Rest non-contributory Phos 3.5 TSAT 13% Vit D 41 PTH 49 LDL 103 kappa/lambda 3.4 uric acid 7.5 renal cyst left side Objective - Vital Signs/Intake and Output Vital Signs (last 24 hours): Temp Pulse Resp BP Pulse Ox 98.9 F 106 H 22 116/68 97 11/19/18 06:00 11/19/18 06:00 11/19/18 06:00 11/19/18 06:00 11/19/18 06:00 Intake and Output: 11/19/18 11/19/18 06:59 18:59 Intake Total 620 Output Total 150 Balance 470 - Medications Medications: Current Medications Acetaminophen (Tylenol 325mg Tab) 650 mg PO Q6H PRN PRN Reason: Pain, moderate (4-7) Acetaminophen (Tylenol 650 Mg Supp) 650 mg RC Q6H PRN PRN Reason: TEMP>=99.5F Allopurinol (Zyloprim) 100 mg PO DAILY [facility] Last Admin: 11/19/18 09:55 Dose: 100 mg Aspirin (Ecotrin) 81 mg PO 0800 [facility] Last Admin: 11/19/18 08:44 Dose: 81 mg Atorvastatin Calcium (Lipitor) 20 mg PO DIN [facility] Last Admin: 11/18/18 16:43 Dose: 20 mg Cilostazol (Pletal) 50 mg PO BID [facility] Last Admin: 11/19/18 09:55 Dose: 50 mg Darbepoetin Arturo (Aranesp) 40 mcg SC QWK [facility] Last Admin: 11/18/18 11:21 Dose: 40 mcg Dextrose (Dextrose 50% Inj) 0 ml IV STAT PRN; Protocol PRN Reason: Hypoglycemia Protocol Docusate Sodium (Colace) 100 mg PO TID [facility] Last Admin: 11/19/18 09:56 Dose: 100 mg Ergocalciferol (Drisdol 50,000 Intl Units Cap) 1 cap PO Q7D [facility] Last Admin: 11/16/18 17:33 Dose: 1 cap Ferrous Sulfate (Feosol) 324 mg PO BID [facility] Last Admin: 11/19/18 09:55 Dose: 324 mg Heparin Sodium (Porcine) (Heparin) 5,000 units SC Q8 [facility]; Protocol Last Admin: 11/19/18 05:39 Dose: 5,000 units Dextrose (Dextrose 5% In Water 1000 Ml) 1,000 mls @ 0 mls/hr IV .Q0M PRN; Protocol PRN Reason: Hypoglycemia Protocol Meropenem/Sodium Chloride (Merrem Iv 500 Mg/Ns 50 Ml) 500 mg in 50 mls @ 100 mls/hr IVPB Q12 [facility]; Protocol Last Admin: 11/19/18 09:54 Dose: 100 mls/hr Sodium Chloride (Sodium Chloride 0.9%) 1,000 mls @ 100 mls/hr IV .Q10H [facility] Last Admin: 11/19/18 01:54 Dose: Not Given Insulin Human Lispro (Humalog Med) 0 units SC AC [facility]; Protocol Last Admin: 11/19/18 12:19 Dose: 8 units Insulin Human NPH (Humulin N) 15 units SC ACBD [facility] Last Admin: 11/19/18 08:45 Dose: 15 unit Linezolid (Zyvox) 600 mg PO BID [facility]; Protocol Stop: 11/24/18 20:20 Last Admin: 11/19/18 09:55 Dose: 600 mg Metoprolol Tartrate (Lopressor) 25 mg PO Q8H [facility] Last Admin: 11/19/18 05:46 Dose: 25 mg Ondansetron HCl (Zofran Inj) 4 mg IVP Q4H PRN PRN Reason: Nausea/Vomiting Pantoprazole Sodium (Protonix Ec Tab) 40 mg PO 0600 [facility] Last Admin: 11/19/18 05:38 Dose: 40 mg Sodium Bicarbonate (Sodium Bicarbonate Tab) 650 mg PO BID [facility] Last Admin: 11/19/18 09:54 Dose: 650 mg Tamsulosin HCl (Flomax) 0.4 mg PO 1830 [facility] Last Admin: 11/18/18 17:48 Dose: 0.4 mg Vitamin B Complex/Vit C/Folic Acid (Nephro-Sumit) 1 tab PO 0800 [facility] Last Admin: 11/19/18 09:55 Dose: 1 tab - Labs Labs: 11/19/18 07:30 11/19/18 07:30 PT 13.7 SECONDS (9.4-12.5) H 11/16/18 12:40 INR 1.21 11/16/18 12:40 APTT 28.3 Seconds (26.9-38.3) 11/16/18 12:40
--- NOTE | 2018-11-19 14:07 | CP.PCM.PCO ---
Physician Communication Note - Physician Communication Note Physician Communication Note: continue IV antibiotics as per ID, will await recommend from Dr. Lujan
--- NOTE | 2018-11-19 15:29 | US ---
Indication: Please eval for PVR. pt with hx of BPH and EMIL Technique: Bladder only/residual urine ultrasound Comparison: Urinary bladder ultrasound performed 07/15/18 Findings: Prevoid urinary bladder: 396.5 mL Postvoid urinary bladder: 46.1 mL Bilateral ureteral jets are not identified. Dependent debris. No evidence of urinary bladder wall thickening. No evidence of urinary bladder calculi. No significant pelvic free fluid identified. Images of the prostate gland were not provided. Impression: Prevoid urinary bladder: 396.5 mL. Postvoid urinary bladder: 46.1 mL Dependent debris.
--- NOTE | 2018-11-19 16:09 | PN ---
DATE: 11/18/2018 LOCATION: Room 575, bed 2. SUBJECTIVE: The patient is admitted for cellulitis of the left foot and persistent leukocytosis and skin and skin structure wounds on the left forefoot and toes. He has been evaluated with x-rays, vascular studies, and partial MRI all of which have been reviewed as well as other laboratory and x-ray data. OBJECTIVE: GENERAL: The patient is alert in bed, no acute distress. EXTREMITIES: The saline dressings on his left forefoot are removed, in the process he exhibits a great deal of pain retracting his left lower extremity in pain. Examination of the forefoot reveals cyanosis changes at the left forefoot with gangrenous plaques on multiple dorsal aspects of the left lesser toes and greater toe. There is some gangrenous skin plaque overlying the left bunion. There appears to be no gangrenous plaque on the sole of the left foot, although there is evidence of cyanosis at the level of tarsometatarsal joints forward. The lesser digits on the left foot appear to be going through mummification and drying. There are fissures and splits in the skin, but there is no evidence of a true ulceration and no wound of any depth. In reviewing the scans and x-ray data, there is a proximally two-year old amputation of the left second digit in place, also noted on x-ray there are significant bony changes in the left foot most demonstrably in the forefoot especially at the first MTP, none of which looks to be classic osteomyelitis, more the appearance of a tophaceous gouty type of foot, although uric acid level is currently normal. There is an MRI which because of agitation , the patient was unable to complete, but the preliminary report from the sagittal plane seemed to indicate no evidence of medullary edema or signs of acute osteomyelitis. There appears to be no deep abscess formations in the forefoot at all. The vascular studies were very poor and there is very poor tibial flow, significant tibial disease, and poor flow to the entire foot. ASSESSMENT AND PLAN: This is a 73-year-old male who appears to be in significant pain with any touch or weightbearing on the left forefoot. He is status post previous second toe amputation with the appearance of cyanosis and mummification occurring in the toes and the forefoot of the left foot. Today, indications are significant tibial disease, as discussed this at length with Dr. Milton Lujan, he suggests no intervention pending at a minimum some attempts to revascularize the tibial flow which seems to stop just below the knee. I am concerned with the idea of a revascularization and I am very guarded to the likelihood of be able to salvage even an amputation at the level of the transmetatarsal amputation. I discussed this with Dr. Lujan and he said he would discuss it with the family instead of putting Mr. Mary through an attempted revascularization and partial foot amputation. It may be better for the patient and his overall general health to discuss with the family the possibility of a below-knee amputation at the level where the current blood flow was still noted to be adequate. Dr. Lujan said he will discuss this with the family and get back to everyone involved and we will continue with changing from saline dressings to Xeroform moist dressings on the left forefoot to minimize the pain of dressing changes and to maintain whatever viability for a short time there is in the left forefoot resident. Milton Heller DPM
--- NOTE | 2018-11-19 20:19 | PN ---
DATE: 11/19/2018 SUBJECTIVE: The patient is again seen lying in the bed in room 575, bed 2. The patient's nurse who is also a Maltese speaking nurse is at the bedside. The patient is lying in the bed comfortable, in no distress. Overnight nurse's notes were reviewed. OBJECTIVE: VITAL SIGNS: Temperature 98.9, heart rate 100, blood pressure 104/54, respirations 22, and O2 sat 97%. HEENT: Head; normocephalic and atraumatic. HEENT examination shows pinkish pale conjunctivae. Anicteric sclerae. Dry oral mucosa. NECK: No neck rigidity. CHEST: Kyphosis. LUNGS: Show no audible crackle, rales or wheezing. CARDIOVASCULAR: S1 and S2, regular rhythm. Positive systolic murmur left sternal border, right second intercostal space, left second intercostal space. ABDOMEN: Soft. Positive bowel sounds. No palpable hepatosplenomegaly. GENITALIA: Male. RECTAL: Deferred. EXTREMITIES: Positive dressing of the left foot noted. No pitting edema noted. MUSCULOSKELETAL: As per the body mass index. NEUROLOGIC: The patient is alert, awake, and responsive, is able to move upper and lower extremity without assistance. Gait examination is not tested as the patient is nonweightbearing on the left lower extremity. PSYCHIATRIC: Negative for anxiety or depression. Negative for auditory or visual hallucination. Negative for suicidal or homicidal ideation. DIAGNOSTIC DATA: On 11/19/2018; WBC 14.3, hemoglobin and hematocrit 8.3 and 25, platelet 281, and granulocytes 82% segs. Sodium 137, potassium 4.2, chloride 105, CO2 of 23, BUN 47, creatinine 2.6, glucose 266, calcium 8.7, phosphorus 3, and magnesium 2.1. AST 106. Fecal occult blood negative. Left foot cultures are growing Pseudomonas aeruginosa. Group B Strep beta hemolytic left foot cultures. IMPRESSION AND PLAN: 1. Left foot Pseudomonas aeruginosa and group B Streptococcus beta hemolytic left foot cellulitis and diabetic foot ulcer. 2. Severe peripheral vascular disease of the lower extremity. 3. Normocytic anemia with decreasing hemoglobin. 4. Leukocytosis with granulocytosis. 5. Uncontrolled diabetes mellitus with hyperglycemia. 6. Acute kidney injury with underlying chronic kidney disease stage III/IV. 7. Transaminitis. 8. Probably anemia of chronic kidney disease. 9. Acute kidney injury with underlying chronic kidney disease. 10. Metabolic acidosis. 11. Hypertensive diabetic chronic kidney disease. 12. Ncffgwgm-sm-krsnpw mitral regurgitation and ljecyvuz-ps-patyvb tricuspid regurgitation. 13. Dilated cardiomyopathy with ejection fraction of 35%. 14. Sepsis. 15. Hypertension. 16. Gait dysfunction. 17. Deconditioning. 18. Bilateral lower extremity peripheral vascular disease. 19. History of poor compliance and noncompliance. 20. History of hyperuricemia and gout. 1. Left foot cellulitis versus gangrene versus pregangrenous state. 2. Sepsis. 3. Tachycardia. 4. Transient episodic hypotension. 5. Leukocytosis with granulocytosis 6. Elevated erythrocyte sedimentation rate of 122. 7. Normocytic anemia. 8. Chronic kidney disease stage 4 with acute kidney injury. 9. Uncontrolled noninsulin-requiring diabetes mellitus with hyperglycemia and hemoglobin A1c of 8.6. 10. Possible iron-deficiency. 11. Hypertriglyceridemia. 12. Elevated C-reactive protein of greater than 15. 13. Transient lactic acidosis. 14. Transaminitis. 15. Deconditioning. 16. Gait dysfunction. 17. Anemia with decreasing hemoglobin and hematocrit. 18. Metabolic acidosis. 19. Diabetic hypertensive chronic kidney disease. 20. Chronic kidney disease stage 3 without proteinuria. 21. Severe mitral and tricuspid regurgitation. 22. Systolic congestive heart failure. 23. Dilated ischemic cardiomyopathy, etiology undetermined. 1. Left foot cellulitis with diabetic foot disease and possible abscess versus possible osteomyelitis. 2. History of left foot second toe amputation. 3. Hypertension. 4. Tachycardia. 5. Fever. 6. Poor compliance and noncompliance. 7. Leukocytosis with granulocytosis. 8. Normocytic anemia. 9. Elevated erythrocyte sedimentation rate of 122. 10. Chronic kidney disease, stage IV with acute kidney injury. 11. Transient lactic acidosis. 12. History of hyperuricemia. 13. Hypertriglyceridemia. 14. Aortic calcification. 15. Bilateral lower extremity popliteal trifurcation and tibial peripheral vascular disease. 16. Left foot first metatarsophalangeal joint bony destruction and sclerosis, chronic osteomyelitis. 17. 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 18. 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 19. Sinus tachycardia with left anterior hemiblock. 20. Deconditioning. 21. History of poor compliance. 22. Chronic dilated ischemic cardiomyopathy with ejection fraction of . 23. History of hypertension. 24. History of heart failure with reduced ejection fraction of 35%. 25. Pulmonary hypertension with right ventricular systolic pressure of 40 mmHg. 26. Left ventricular global hypokinesis and moderately impaired left ventricular systolic function. 27. Mild aortic regurgitation. 28. Moderate to severe mitral regurgitation. 29. Moderate tricuspid regurgitation. 30. History of constipation. 31. Hypovitaminosis D. 32. History of iron-deficiency anemia. 33. Prostatic hypertrophy. 34. Insulin-requiring diabetes mellitus. 35. Hyperlipidemia. 36. History of peripheral vascular disease. 37. Hyperuricemia. 1. Left foot diabetic foot ulceration versus left foot abscess versus left foot toe osteomyelitis. 2. Tachycardia. 3. Leukocytosis with granulocytosis. 4. Questionable systemic inflammatory response syndrome. 5. Uncontrolled diabetes mellitus with hyperglycemia. 6. Chronic kidney disease stage IV. 7. Mild transaminitis. 8. History of hypertension. 9. Hyperlipidemia. 10. History of prostatic hypertrophy. 11. History of iron-deficiency anemia. 12. History of hypovitaminosis D. 13. History of dilated cardiomyopathy. 14. History of pulmonary hypertension. 15. History of moderate tricuspid regurgitation and mitral regurgitation. 16. Hyperuricemia. Plan at this time, the patient is to be continued on medications as per the MAR of today, which is reviewed. The patient is on IV fluid hydration in anticipation for an angiogram by Dr. Milton Lujan. The patient is on IV antibiotics as per the Infectious Disease recommendation including meropenem and Zyvox. The patient has been ordered PRBC transfusion of 1 unit today. The patient has been seen by Gastroenterology, recommends transfusion of PRBC as needed. The patient is being followed up by Infectious Disease, Podiatry, and Interventional Radiology. We will await their further recommendation regarding the patient's management. The patient has been extensively explained about his condition, diagnosis, diagnostic test results and recommendation by all physician, all of the above has been explained to the patient in layman's language via stringer up soldering machine who is the patient's nurse who speaks Maltese and the patient has been explained all the above details in Maltese language, which he has acknowledged and understand. In addition, I received a phone call from from a lady name Ginette stating that she is the patient's daughter. I have advised the person to contact the listed next of kin for all the details about the patient's condition, diagnosis, diagnostic test results and also she can contact the patient himself who has been extensively explained about his medical condition in layman's language and all questions concerned has been explained to the patient to his satisfaction. At present, the patient will be continued on therapeutic intervention as per the MAR of today. The patient has been ordered 1 unit of PRBC with repeat labs ordered. Dictated and electronically signed, not read. Niranjan Ling MD MTDD
--- NOTE | 2018-11-20 01:37 | PN ---
DATE: 11/19/2018 SUBJECTIVE: The patient was seen earlier today in 575, bed 2. PHYSICAL EXAMINATION: VITAL SIGNS: Temperature is 99, blood pressure is 105/50, respiratory rate of 18. HEENT: Unremarkable. NECK: Supple. LUNGS: Decreased breath sounds. HEART: Normal S1 and S2. ABDOMEN: Soft. LABORATORY DATA: Reveals white count of 14,000 and hemoglobin 8. BUN of 47 and creatine of 2.6. Microbiology reveals blood cultures are negative. Urine cultures are negative. Bladder ultrasound is noted. ASSESSMENT AND PLAN: A 73-year-old male seen earlier this morning in 575, bed 2 with sepsis, left foot cellulitis, renal insufficiency on Zyvox and meropenem with group B Streptococcus and Gram-negative chari in microbiology, which is identified as Pseudomonas aeruginosa, pansensitive. Review of orders confirms the meropenem and Zyvox to be active. We will follow closely with you. Dr. Ling's note is reviewed. Tai Landaverde MD
[2018-11-20] MEDS: Pantoprazole 40 mg EC Tab PO SCH (06:29)
[2018-11-20] MEDS: Sodium Chloride 0.9% 1,000 ML IV SCH (06:43)
[2018-11-20 08:00] LABS: BASO # 0.02 K/mm3 (0.0-2.0); BASO % 0.1 % (0.0-3.0); EOS # 0.1 (0.0-0.7); EOS % 0.5 % (1.5-5.0); HEMOGLOBIN 8.5 g/dL (14.0-18.0); LYMPH # 1.4 (1.2-3.4); LYMPH % 9.5 % (22.0-35.0); MEAN CELL VOLUME 95.9 fl (80.0-105.0); MEAN CORPUSCULAR HEMOGLOBIN 31.4 pg (25.0-35.0); MEAN CORPUSCULAR HGB CONC 32.7 g/dl (31.0-37.0); MEAN PLATELET VOLUME 9.6 fl (7.0-11.0); MONO # 1.4 (0.1-0.6); MONO % 9.2 % (1.0-6.0); RBC 2.71 10^6/uL (3.5-6.1); RED CELL DISTRIBUTION WIDTH 16.7 % (11.5-14.5); WHITE BLOOD COUNT 14.7 10^3/uL (4.5-11.0)
[2018-11-20 08:13] LABS: ALBUMIN 3.4 g/dL (3.0-4.8); BILIRUBIN,DIRECT 0.3 mg/dL (0.0-0.4); CALCIUM 8.6 mg/dL (8.4-10.5)
[2018-11-20] MEDS: MEROPENEM 500 MG in NS 500 MG/50 ML BAG IVPB SCH ×2 (09:22→21:42)
[2018-11-20] MEDS: Multivitamin Vitamin B Complex (Nephro-Vite) Tab PO SCH (09:23)
[2018-11-20] MEDS: Cilostazol 50 mg Tab UD PO SCH ×2 (09:23→18:38)
[2018-11-20] MEDS: POLYETHYLENE GLYCOL 3350 17 GM/Dose PACKET PO SCH ×2 (09:24→18:40)
[2018-11-20] MEDS: Insulin Human NPH 1 UNITS/0.01 ML SC SCH ×2 (09:24→18:39)
[2018-11-20] MEDS: Insulin Lispro (humaLOG) MEDIUM Coverage SC SCH ×3 (09:24→18:24)
--- NOTE | 2018-11-20 10:39 | PN ---
DATE: 11/20/2018 SUBJECTIVE: The patient is seen again lying in the bed in room 575, bed 2. The patient is comfortable, in no distress. Overnight nurse's notes were reviewed. The patient received transfusion of 1 unit of PRBC yesterday, which he tolerated without any problems.. Patient is on continuous monitoring left foot dressing is in place. OBJECTIVE: VITAL SIGNS: T-max 99.3, heart rate 103, 119, 116, blood pressure 149/75, respirations 20, O2 sat 96%. HEENT: Head examination normocephalic, atraumatic. HEENT examination shows pinkish pale conjunctivae. Anicteric sclerae. No oropharyngeal lesion. No neck rigidity. CHEST: Kyphosis. LUNGS: Shows no audible crackle, rales or wheezing. CARDIOVASCULAR: S1, S2, regular rhythm. Positive systolic murmur left sternal border, right second intercostal space, left second intercostal space. ABDOMEN: Soft, positive bowel sound. No palpable hepatosplenomegaly. GENITALIA: Male. RECTAL: Deferred. EXTREMITIES: Shows positive left foot dressing. No pitting edema, no calve tenderness, no Homans' sign. NEUROLOGIC: The patient is alert, awake, responsive, is able to move upper and lower extremity without assistance. Gait examination is not tested. Vascular examination, palpable decreased pulses. MUSCULOSKELETAL: Shows a body mass index of 24. DIAGNOSTICS: From November 20, WBC is consistently high at 14.7, hemoglobin/hematocrit 8.5/26, platelet 289, granulocytes 81% segs. Sodium 138, potassium 3.9, chloride 104, CO2 of 24, anion gap 13, BUN down to 39, creatinine down to 2.3, GFR 28, glucose 177, calcium 8.6, phosphorus 2.7, magnesium 2.0. AST is 89, which has come down from 106. Stool occult blood is negative. Urine cultures,blood cultures negative. Left foot wound cultures, Pseudomonas aeruginosa and beta hemolytic group B strep. The patient received 1 unit of PRBC yesterday. The patient underwent a bladder ultrasound ordered by the nephrology. EKG shows sinus tachycardia, left axis deviation. IMPRESSION: 1. Left foot Pseudomonas aeruginosa and group B beta hemolytic strep, left foot diabetic foot ulceration and cellulitis. 2. Sepsis secondary to Pseudomonas aeruginosa and group B beta hemolytic strep, left diabetic foot ulceration and cellulitis. 3. Hypertension. 4. Tachycardia. 5. Anemia. 6. Status post packed red blood cell transfusion one unit. 7. Leukocytosis with granulocytosis. 8. Elevated erythrocyte sedimentation rate of 122. 9. Iron-deficiency. 10. Acute kidney injury with underlying chronic kidney disease, stage IV. 11. Uncontrolled diabetes mellitus with hyperglycemia and elevated hemoglobin A1c of 8.6 and elevated fructose, a mean of 329. 12. Transient lactic acidosis. 13. Transaminitis. 14. Hypertriglyceridemia. 15. Elevated C-reactive protein of greater than 15. 16. Gait dysfunction. 17. Deconditioning. 18. Metabolic acidosis. 19. 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 20. Severe mitral, tricuspid regurgitation and systolic congestive heart failure. 21. Left foot cellulitis and left foot diabetic ulceration. 22. Left diabetic foot ulceration and possible gangrene or pre-gangrenous condition of the left foot toes. 23. Left foot second digit amputation. 24. Peripheral vascular disease. 25. Left foot second toe amputation with cyanosis and mummification of the toes and forefoot of the left foot. 26. Severe tibial disease of the lower extremity. 27. Peripheral vascular disease. 28. Anemia of chronic disease. 29. Bilateral popliteal trifurcation and tibial disease. 30. Left anterior hemiblock. 1. Left foot Pseudomonas aeruginosa and group B Streptococcus beta hemolytic left foot cellulitis and diabetic foot ulcer. 2. Severe peripheral vascular disease of the lower extremity. 3. Normocytic anemia with decreasing hemoglobin. 4. Leukocytosis with granulocytosis. 5. Uncontrolled diabetes mellitus with hyperglycemia. 6. Acute kidney injury with underlying chronic kidney disease stage III/IV. 7. Transaminitis. 8. Probably anemia of chronic kidney disease. 9. Acute kidney injury with underlying chronic kidney disease. 10. Metabolic acidosis. 11. Hypertensive diabetic chronic kidney disease. 12. Fihbwony-qf-atotac mitral regurgitation and iowfioeg-ky-skfdke tricuspid regurgitation. 13. Dilated cardiomyopathy with ejection fraction of 35%. 14. Sepsis. 15. Hypertension. 16. Gait dysfunction. 17. Deconditioning. 18. Bilateral lower extremity peripheral vascular disease. 19. History of poor compliance and noncompliance. 20. History of hyperuricemia and gout. 1. Left foot cellulitis versus gangrene versus pregangrenous state. 2. Sepsis. 3. Tachycardia. 4. Transient episodic hypotension. 5. Leukocytosis with granulocytosis 6. Elevated erythrocyte sedimentation rate of 122. 7. Normocytic anemia. 8. Chronic kidney disease stage 4 with acute kidney injury. 9. Uncontrolled noninsulin-requiring diabetes mellitus with hyperglycemia and hemoglobin A1c of 8.6. 10. Possible iron-deficiency. 11. Hypertriglyceridemia. 12. Elevated C-reactive protein of greater than 15. 13. Transient lactic acidosis. 14. Transaminitis. 15. Deconditioning. 16. Gait dysfunction. 17. Anemia with decreasing hemoglobin and hematocrit. 18. Metabolic acidosis. 19. Diabetic hypertensive chronic kidney disease. 20. Chronic kidney disease stage 3 without proteinuria. 21. Severe mitral and tricuspid regurgitation. 22. Systolic congestive heart failure. 23. Dilated ischemic cardiomyopathy, etiology undetermined. 1. Left foot cellulitis with diabetic foot disease and possible abscess versus possible osteomyelitis. 2. History of left foot second toe amputation. 3. Hypertension. 4. Tachycardia. 5. Fever. 6. Poor compliance and noncompliance. 7. Leukocytosis with granulocytosis. 8. Normocytic anemia. 9. Elevated erythrocyte sedimentation rate of 122. 10. Chronic kidney disease, stage IV with acute kidney injury. 11. Transient lactic acidosis. 12. History of hyperuricemia. 13. Hypertriglyceridemia. 14. Aortic calcification. 15. Bilateral lower extremity popliteal trifurcation and tibial peripheral vascular disease. 16. Left foot first metatarsophalangeal joint bony destruction and sclerosis, chronic osteomyelitis. 17. 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 18. 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 19. Sinus tachycardia with left anterior hemiblock. 20. Deconditioning. 21. History of poor compliance. 22. Chronic dilated ischemic cardiomyopathy with ejection fraction of . 23. History of hypertension. 24. History of heart failure with reduced ejection fraction of 35%. 25. Pulmonary hypertension with right ventricular systolic pressure of 40 mmHg. 26. Left ventricular global hypokinesis and moderately impaired left ventricular systolic function. 27. Mild aortic regurgitation. 28. Moderate to severe mitral regurgitation. 29. Moderate tricuspid regurgitation. 30. History of constipation. 31. Hypovitaminosis D. 32. History of iron-deficiency anemia. 33. Prostatic hypertrophy. 34. Insulin-requiring diabetes mellitus. 35. Hyperlipidemia. 36. History of peripheral vascular disease. 37. Hyperuricemia. 1. Left foot diabetic foot ulceration versus left foot abscess versus left foot toe osteomyelitis. 2. Tachycardia. 3. Leukocytosis with granulocytosis. 4. Questionable systemic inflammatory response syndrome. 5. Uncontrolled diabetes mellitus with hyperglycemia. 6. Chronic kidney disease stage IV. 7. Mild transaminitis. 8. History of hypertension. 9. Hyperlipidemia. 10. History of prostatic hypertrophy. 11. History of iron-deficiency anemia. 12. History of hypovitaminosis D. 13. History of dilated cardiomyopathy. 14. History of pulmonary hypertension. 15. History of moderate tricuspid regurgitation and mitral regurgitation. 16. Hyperuricemia. PLAN The patient was seen and evaluated by Dr. Heller yesterday and it appears that the final recommendation by podiatry seems that there may be a possibility that podiatry recommends below-knee amputation. At this time, in the interim the patient has been ordered serial labs. Current consultation Interventional Radiology, Podiatry, Cardiology, Gastroenterology, Infectious Disease, Nephrology. coding educator evaluation, TCU evaluation ordered. The patient has been ordered one more unit of PRBC today since his hemoglobin did not improve at all since yesterday. The patient is on Aranesp 40 mcg subcu weekly, Colace 100 mg three times a day. The patient is on hypoglycemia protocol, Drisdol 50,000 units weekly, Ecotrin 81 mg daily, ferrous sulfate 324 kg twice a day, Flomax 0.4 mg daily, heparin 5000 subcu every 8 hours, Humalog medium dose sliding scale coverage a.c., NPH 15 units with breakfast and dinner, Lipitor 20 mg daily, Lopressor 25 mg every 8 hours, meropenem 500 IV every 12 hours, MiraLax 17 g twice a day, Nephro-Sumit 1 tablet daily, Pletal 50 mg twice a day, Protonix 40 mg daily, sodium bicarb 650 mg twice a day, Tylenol 650 mg p.o. suppository every 6 hours, Zofran 4 mg IV every 4 hours p.r.n., Zyloprim 100 mg daily Zyvox 600 mg twice a day, incentive promontory every 2 hours, consistent carbohydrate diet, out of bed to chair to recliner, nonweightbearing of the left lower extremity, physical therapy and occupational therapy ordered, stool for occult blood ordered. At present, the patient's overall prognosis is guarded to poor condition complicated due to the patient's advanced age and multiple complex comorbidity. Dictated and electronically signed, not read. Signing off Niranjan Ling MD. Niranjan Ling MD MTDD
--- NOTE | 2018-11-20 12:28 | CP.PCM.PN ---
Subjective - Date & Time of Evaluation Date of Evaluation: 11/20/18 Time of Evaluation: 12:28 - Subjective Subjective: Podiatry progress note: Dr. Heller 73 year old male patient seen and evalated for L foot cellulitis with vascular changes. Patient resting comfortably and in no acute distress. Endorses + pain to his L foot at this time. Denies nausea/vomiting/fever/shortness of breath/chills. Objective - Vital Signs/Intake and Output Vital Signs (last 24 hours): Temp Pulse Resp BP Pulse Ox 98 F 116 H 20 149/75 96 11/20/18 06:00 11/20/18 06:43 11/20/18 06:00 11/20/18 06:43 11/20/18 06:00 Intake and Output: 11/20/18 11/20/18 06:59 18:59 Intake Total 680 Output Total 750 Balance -70 - Medications Medications: Current Medications Acetaminophen (Tylenol 325mg Tab) 650 mg PO Q6H PRN PRN Reason: Pain, moderate (4-7) Acetaminophen (Tylenol 650 Mg Supp) 650 mg RC Q6H PRN PRN Reason: TEMP>=99.5F Acetaminophen (Tylenol 325mg Tab) 650 mg PO Q6 PRN PRN Reason: TEMP>=99.5F Acetaminophen (Tylenol 650 Mg Supp) 650 mg RC Q6H PRN PRN Reason: TEMP>=99.5F Allopurinol (Zyloprim) 100 mg PO DAILY [facility] Last Admin: 11/20/18 09:23 Dose: 100 mg Aspirin (Ecotrin) 81 mg PO 0800 [facility] Last Admin: 11/20/18 09:23 Dose: 81 mg Atorvastatin Calcium (Lipitor) 20 mg PO DIN [facility] Last Admin: 11/19/18 18:11 Dose: 20 mg Cilostazol (Pletal) 50 mg PO BID [facility] Last Admin: 11/20/18 09:23 Dose: 50 mg Darbepoetin Arturo (Aranesp) 40 mcg SC QWK [facility] Last Admin: 11/18/18 11:21 Dose: 40 mcg Dextrose (Dextrose 50% Inj) 0 ml IV STAT PRN; Protocol PRN Reason: Hypoglycemia Protocol Docusate Sodium (Colace) 100 mg PO TID [facility] Last Admin: 11/20/18 09:23 Dose: 100 mg Ergocalciferol (Drisdol 50,000 Intl Units Cap) 1 cap PO Q7D [facility] Last Admin: 11/16/18 17:33 Dose: 1 cap Ferrous Sulfate (Feosol) 324 mg PO BID [facility] Last Admin: 11/20/18 09:24 Dose: 324 mg Heparin Sodium (Porcine) (Heparin) 5,000 units SC Q8 [facility]; Protocol Last Admin: 11/20/18 06:29 Dose: 5,000 units Dextrose (Dextrose 5% In Water 1000 Ml) 1,000 mls @ 0 mls/hr IV .Q0M PRN; Protocol PRN Reason: Hypoglycemia Protocol Meropenem/Sodium Chloride (Merrem Iv 500 Mg/Ns 50 Ml) 500 mg in 50 mls @ 100 mls/hr IVPB Q12 [facility]; Protocol Last Admin: 11/20/18 09:22 Dose: 100 mls/hr Insulin Human Lispro (Humalog Med) 0 units SC AC [facility]; Protocol Last Admin: 11/20/18 09:24 Dose: 1 units Insulin Human NPH (Humulin N) 15 units SC ACBD [facility] Last Admin: 11/20/18 09:24 Dose: 15 unit Linezolid (Zyvox) 600 mg PO BID [facility]; Protocol Stop: 11/24/18 20:20 Last Admin: 11/20/18 09:23 Dose: 600 mg Metoprolol Tartrate (Lopressor) 25 mg PO Q8H [facility] Last Admin: 11/20/18 06:43 Dose: 25 mg Ondansetron HCl (Zofran Inj) 4 mg IVP Q4H PRN PRN Reason: Nausea/Vomiting Ondansetron HCl (Zofran Inj) 4 mg IVP Q4H PRN PRN Reason: Nausea/Vomiting Pantoprazole Sodium (Protonix Ec Tab) 40 mg PO 0600 [facility] Last Admin: 11/20/18 06:29 Dose: 40 mg Polyethylene Glycol (Miralax) 17 gm PO BID [facility] Last Admin: 11/20/18 09:24 Dose: 17 gm Sodium Bicarbonate (Sodium Bicarbonate Tab) 650 mg PO BID [facility] Last Admin: 11/20/18 09:24 Dose: 650 mg Tamsulosin HCl (Flomax) 0.4 mg PO 1830 [facility] Last Admin: 11/19/18 18:17 Dose: 0.4 mg Vitamin B Complex/Vit C/Folic Acid (Nephro-Sumit) 1 tab PO 0800 [facility] Last Admin: 11/20/18 09:23 Dose: 1 tab - Labs Labs: 11/20/18 07:00 11/20/18 07:00 PT 13.7 SECONDS (9.4-12.5) H 11/16/18 12:40 INR 1.21 11/16/18 12:40 APTT 28.3 Seconds (26.9-38.3) 11/16/18 12:40 - Constitutional Appears: Non-toxic, No Acute Distress - Head Exam Head Exam: ATRAUMATIC, NORMOCEPHALIC - Extremities Exam Additional comments: Left Lower Extremity Exam VASC: DP and Pt non-palpable, CFT delayed, significant edema to the left forefoot, TG warm to warm NEURO: diminished sensation with tingling, gross sensation intact DERM: significant skin loss with erythema to the forefoot, increasing gangrenous changes noted, positive drainage noted, no obvious wounds that probe to bone, tunnel or track, positive malodor, significant pain on palpation - Neurological Exam Neurological Exam: Alert, Awake, Oriented x3 - Psychiatric Exam Psychiatric exam: Normal Affect, Normal Mood Assessment and Plan - Assessment and Plan (Free Text) Assessment: 73M with cellulitis and vascular changes to the L foot Plan: Patient seen and evaluated Plan discussed with Dr. Heller WBC 14.7, ESR 122, CRP >15.0 Left Foot X-ray: chronic osteo, no soft tissue emphysema noted at this time Wound Culture: Gram neg rods, group B strep FAHAD/PVR: abnormal FAHAD/PVR Ordered Left foot MRI- limited study, no osteomyelitis Infectious disease consult, recommendations appreciated Cardiology recommendations appreciated- as per Dr. Murrell, patient at high risk for any anesthesia and patient has refused all workup As per Dr Heller, no plan for podiatric intervention at this time- will continue to monitor F/U with Vasc recs per Dr. Lujan
--- NOTE | 2018-11-20 23:32 | PN ---
DATE: 11/20/2018 SUBJECTIVE: The patient is in bed, in no acute distress, was seen earlier today in 575, bed 2. OBJECTIVE: VITAL SIGNS: Temperature of 99, blood pressure 130/60, respiratory rate of 18, heart rate of 102. HEENT: Unremarkable. NECK: Supple. LUNGS: Have decreased breath sounds. HEART: Normal S1, S2. ABDOMEN: Soft, nontender. LABORATORY EXAMINATION: Reveals a white count of 14,000, BUN of 39, creatinine of 2.3. Microbiology reveals the Pseudomonas and group B Strep. Blood cultures are negative. The patient is currently on meropenem and Zyvox. ASSESSMENT AND PLAN: This is a 73-year-old male with sepsis, left foot cellulitis with Pseudomonas and group B Strep, on meropenem and Zyvox. We will discontinue the Zyvox and complete with meropenem. Tai Landaverde MD
[2018-11-21] MEDS: Pantoprazole 40 mg EC Tab PO SCH (06:01)
[2018-11-21 07:37] LABS: BASO # 0.02 K/mm3 (0.0-2.0); BASO % 0.1 % (0.0-3.0); EOS # 0.1 (0.0-0.7); EOS % 0.7 % (1.5-5.0); HEMOGLOBIN 9.8 g/dL (14.0-18.0); LYMPH # 1.1 (1.2-3.4); LYMPH % 6.6 % (22.0-35.0); MEAN CELL VOLUME 92.8 fl (80.0-105.0); MEAN CORPUSCULAR HEMOGLOBIN 30.6 pg (25.0-35.0); MEAN PLATELET VOLUME 9.4 fl (7.0-11.0); MONO # 1.7 (0.1-0.6); MONO % 10.5 % (1.0-6.0); RBC 3.2 10^6/uL (3.5-6.1); RED CELL DISTRIBUTION WIDTH 17.7 % (11.5-14.5); WHITE BLOOD COUNT 16.2 10^3/uL (4.5-11.0)
[2018-11-21 08:00] LABS: ALBUMIN 3.4 g/dL (3.0-4.8); BILIRUBIN,DIRECT 0.2 mg/dL (0.0-0.4); CALCIUM 8.7 mg/dL (8.4-10.5)
--- NOTE | 2018-11-21 08:15 | CP.PCM.PN ---
Subjective - Date & Time of Evaluation Date of Evaluation: 11/21/18 Time of Evaluation: 07:15 - Subjective Subjective: (covering for Dr. Ling) Patient is seen this morning. He is confused. He says he feels okay but does not make any specific complaints. Objective - Vital Signs/Intake and Output Vital Signs (last 24 hours): Temp Pulse Resp BP Pulse Ox 99.4 F 108 H 20 116/63 95 11/20/18 22:00 11/21/18 06:02 11/20/18 22:00 11/21/18 06:02 11/20/18 22:00 Intake and Output: 11/21/18 11/21/18 06:59 18:59 Output Total 400 Balance -400 - Medications Medications: Current Medications Acetaminophen (Tylenol 325mg Tab) 650 mg PO Q6H PRN PRN Reason: Pain, moderate (4-7) Last Admin: 11/20/18 18:36 Dose: 650 mg Acetaminophen (Tylenol 650 Mg Supp) 650 mg RC Q6H PRN PRN Reason: TEMP>=99.5F Acetaminophen (Tylenol 325mg Tab) 650 mg PO Q6 PRN PRN Reason: TEMP>=99.5F Acetaminophen (Tylenol 650 Mg Supp) 650 mg RC Q6H PRN PRN Reason: TEMP>=99.5F Allopurinol (Zyloprim) 100 mg PO DAILY [facility] Last Admin: 11/20/18 09:23 Dose: 100 mg Aspirin (Ecotrin) 81 mg PO 0800 [facility] Last Admin: 11/20/18 09:23 Dose: 81 mg Atorvastatin Calcium (Lipitor) 20 mg PO DIN [facility] Last Admin: 11/20/18 18:37 Dose: 20 mg Cilostazol (Pletal) 50 mg PO BID [facility] Last Admin: 11/20/18 18:38 Dose: 50 mg Darbepoetin Arturo (Aranesp) 40 mcg SC QWK [facility] Last Admin: 11/18/18 11:21 Dose: 40 mcg Dextrose (Dextrose 50% Inj) 0 ml IV STAT PRN; Protocol PRN Reason: Hypoglycemia Protocol Docusate Sodium (Colace) 100 mg PO TID [facility] Last Admin: 11/20/18 18:38 Dose: 100 mg Ergocalciferol (Drisdol 50,000 Intl Units Cap) 1 cap PO Q7D [facility] Last Admin: 11/16/18 17:33 Dose: 1 cap Ferrous Sulfate (Feosol) 324 mg PO BID [facility] Last Admin: 11/20/18 18:37 Dose: 324 mg Heparin Sodium (Porcine) (Heparin) 5,000 units SC Q8 [facility]; Protocol Last Admin: 11/21/18 06:02 Dose: 5,000 units Dextrose (Dextrose 5% In Water 1000 Ml) 1,000 mls @ 0 mls/hr IV .Q0M PRN; Protocol PRN Reason: Hypoglycemia Protocol Meropenem/Sodium Chloride (Merrem Iv 500 Mg/Ns 50 Ml) 500 mg in 50 mls @ 100 mls/hr IVPB Q12 [facility]; Protocol Last Admin: 11/20/18 21:42 Dose: 100 mls/hr Insulin Human Lispro (Humalog Med) 0 units SC AC [facility]; Protocol Last Admin: 11/20/18 18:24 Dose: Not Given Insulin Human NPH (Humulin N) 15 units SC ACBD [facility] Last Admin: 11/20/18 18:39 Dose: 15 unit Metoprolol Tartrate (Lopressor) 25 mg PO Q8H [facility] Last Admin: 11/21/18 06:02 Dose: 25 mg Ondansetron HCl (Zofran Inj) 4 mg IVP Q4H PRN PRN Reason: Nausea/Vomiting Ondansetron HCl (Zofran Inj) 4 mg IVP Q4H PRN PRN Reason: Nausea/Vomiting Pantoprazole Sodium (Protonix Ec Tab) 40 mg PO 0600 [facility] Last Admin: 11/21/18 06:01 Dose: 40 mg Polyethylene Glycol (Miralax) 17 gm PO BID [facility] Last Admin: 11/20/18 18:40 Dose: 17 gm Sodium Bicarbonate (Sodium Bicarbonate Tab) 650 mg PO BID [facility] Last Admin: 11/20/18 18:38 Dose: 650 mg Tamsulosin HCl (Flomax) 0.4 mg PO 1830 [facility] Last Admin: 11/20/18 18:38 Dose: 0.4 mg Vitamin B Complex/Vit C/Folic Acid (Nephro-Smuit) 1 tab PO 0800 [facility] Last Admin: 11/20/18 09:23 Dose: 1 tab - Labs Labs: 11/21/18 07:10 11/21/18 07:10 PT 13.7 SECONDS (9.4-12.5) H 11/16/18 12:40 INR 1.21 11/16/18 12:40 APTT 28.3 Seconds (26.9-38.3) 11/16/18 12:40 - Constitutional Appears: No Acute Distress - Respiratory Exam Respiratory Exam: Clear to Ausculation Bilateral, NORMAL BREATHING PATTERN - Cardiovascular Exam Cardiovascular Exam: REGULAR RHYTHM, +S1, +S2 - GI/Abdominal Exam GI & Abdominal Exam: Soft, Normal Bowel Sounds. absent: Tenderness - Extremities Exam Additional comments: left foot wrapped in bandage - Neurological Exam Neurological Exam: Alert, Awake Additional comments: oriented to person, not place or time Assessment and Plan - Assessment and Plan (Free Text) Assessment: Sepsis Left foot pseudomonas and Group B Streptococcus ulceration and cellulitis HTN Anemia CKD stage IV Diabetes PVD Plan: Patient's hemoglobin is now 9.8 after a total of 2 units PRBCs. Stool for occult blood is negative. continue iron supplementation. continue antibiotics as per infectious disease. WBC count is rising. Patient currently on Zyvox and IV Meropenem. Wound cultures growing pseudomonas and group B streptococcus. continue wound care as per podiatry. Awaiting recommendation from Dr. Fidelia Lujan regarding patient's vascular status. Patient may need below the knee amputation.
[2018-11-21] MEDS: Insulin Human NPH 1 UNITS/0.01 ML SC SCH ×2 (11:40→17:48)
[2018-11-21] MEDS: Multivitamin Vitamin B Complex (Nephro-Vite) Tab PO SCH (11:40)
[2018-11-21] MEDS: Insulin Lispro (humaLOG) MEDIUM Coverage SC SCH ×3 (11:41→17:49)
[2018-11-21] MEDS: POLYETHYLENE GLYCOL 3350 17 GM/Dose PACKET PO SCH ×2 (11:42→17:48)
[2018-11-21] MEDS: Cilostazol 50 mg Tab UD PO SCH ×2 (11:42→17:47)
[2018-11-21] MEDS: MEROPENEM 500 MG in NS 500 MG/50 ML BAG IVPB SCH ×2 (11:57→22:25)
--- NOTE | 2018-11-21 17:18 | CP.PCM.PN ---
Subjective - Date & Time of Evaluation Date of Evaluation: 11/21/18 Time of Evaluation: 17:15 - Subjective Subjective: Nephrology Consultation Note: Assessment: Stable Acute Kidney Injury (N17.9) likely due to sepsis with cellulitis metabolic acidosis Diabetic chronic Kidney Disease (E11.22) Hypertensive Chronic Kidney Disease (I12.9) Chronic Kidney Disease (N18.3) Stage 3 without proteinuria (R80.9) likely due to HTN/vasc disease Anemia (D64.9), DM, gout PVD severe MR/TR with sys CHF LVEF 35-40% Plan No acute need for renal replacement therapy at this time. marisol reviewed Hypertension control with meds as ordered. Maintain hemodynamics stable. Monitor Input/Output, daily weights and renal function with basic metabolic panel continue with iron and MVI. PRBC as needed. dose of aransep 40 mcg 11/17/18 Physical Examination: General Appearance: Comfortable, in no acute respiratory distress, co-operative . Vitals reviewed and noted as below Head; Atraumatic, normocephalic ENT: no ulcers no thrush. Tongue is midline. Oropharynx: no rash or ulcers. EYES: Pupils are equal, round and reactive to light accommodation. Eye muscles and extra-ocular movement intact. Sclera is anicteric. Neck; supple no lymphadenopathy, no thyromegaly or bruit Lungs: Normal respiratory rate/effort. Breath sounds bilateral equal and clear Heart: Normal rate. s1s2 normal. No rub or gallop. Extremities: no edema. No varicose veins. left foot in dressing Neurological: Patient is alert, awake and oriented to person, place and time. No focal deficit. Strength bilateral appropriate and equal Skin: Warm and dry. Normal turgor. No rash. Abdomen: Abdomen is soft. Bowel sounds +. There is no abdominal tenderness, no guarding/rigidity no organomegaly Psych: lack insight and normal affect/mood MSK: no joint tenderness or swelling. Objective - Vital Signs/Intake and Output Vital Signs (last 24 hours): Temp Pulse Resp BP Pulse Ox 100 F H 104 H 20 128/69 97 11/21/18 14:00 11/21/18 14:00 11/21/18 14:00 11/21/18 14:00 11/21/18 14:00 Intake and Output: 11/21/18 11/21/18 06:59 18:59 Intake Total 480 Output Total 400 300 Balance -400 180 - Medications Medications: Current Medications Acetaminophen (Tylenol 325mg Tab) 650 mg PO Q6H PRN PRN Reason: Pain, moderate (4-7) Last Admin: 11/20/18 18:36 Dose: 650 mg Acetaminophen (Tylenol 650 Mg Supp) 650 mg RC Q6H PRN PRN Reason: TEMP>=99.5F Acetaminophen (Tylenol 325mg Tab) 650 mg PO Q6 PRN PRN Reason: TEMP>=99.5F Acetaminophen (Tylenol 650 Mg Supp) 650 mg RC Q6H PRN PRN Reason: TEMP>=99.5F Allopurinol (Zyloprim) 100 mg PO DAILY [facility] Last Admin: 11/21/18 11:40 Dose: 100 mg Aspirin (Ecotrin) 81 mg PO 0800 [facility] Last Admin: 11/21/18 11:39 Dose: 81 mg Atorvastatin Calcium (Lipitor) 20 mg PO DIN [facility] Last Admin: 11/20/18 18:37 Dose: 20 mg Cilostazol (Pletal) 50 mg PO BID [facility] Last Admin: 11/21/18 11:42 Dose: 50 mg Darbepoetin Arturo (Aranesp) 40 mcg SC QWK [facility] Last Admin: 11/18/18 11:21 Dose: 40 mcg Dextrose (Dextrose 50% Inj) 0 ml IV STAT PRN; Protocol PRN Reason: Hypoglycemia Protocol Docusate Sodium (Colace) 100 mg PO TID [facility] Last Admin: 11/21/18 13:19 Dose: 100 mg Ergocalciferol (Drisdol 50,000 Intl Units Cap) 1 cap PO Q7D [facility] Last Admin: 11/16/18 17:33 Dose: 1 cap Ferrous Sulfate (Feosol) 324 mg PO BID [facility] Last Admin: 11/21/18 11:40 Dose: 324 mg Heparin Sodium (Porcine) (Heparin) 5,000 units SC Q8 [facility]; Protocol Last Admin: 11/21/18 13:19 Dose: 5,000 units Dextrose (Dextrose 5% In Water 1000 Ml) 1,000 mls @ 0 mls/hr IV .Q0M PRN; Protocol PRN Reason: Hypoglycemia Protocol Meropenem/Sodium Chloride (Merrem Iv 500 Mg/Ns 50 Ml) 500 mg in 50 mls @ 100 mls/hr IVPB Q12 [facility]; Protocol Last Admin: 11/21/18 11:57 Dose: 100 mls/hr Insulin Human Lispro (Humalog Med) 0 units SC AC [facility]; Protocol Last Admin: 11/21/18 13:19 Dose: 5 units Insulin Human NPH (Humulin N) 15 units SC ACBD [facility] Last Admin: 11/21/18 11:40 Dose: 15 unit Metoprolol Tartrate (Lopressor) 25 mg PO Q8H [facility] Last Admin: 11/21/18 06:02 Dose: 25 mg Ondansetron HCl (Zofran Inj) 4 mg IVP Q4H PRN PRN Reason: Nausea/Vomiting Ondansetron HCl (Zofran Inj) 4 mg IVP Q4H PRN PRN Reason: Nausea/Vomiting Pantoprazole Sodium (Protonix Ec Tab) 40 mg PO 0600 [facility] Last Admin: 11/21/18 06:01 Dose: 40 mg Polyethylene Glycol (Miralax) 17 gm PO BID [facility] Last Admin: 11/21/18 11:42 Dose: 17 gm Sodium Bicarbonate (Sodium Bicarbonate Tab) 650 mg PO BID [facility] Last Admin: 11/21/18 11:39 Dose: 650 mg Tamsulosin HCl (Flomax) 0.4 mg PO 1830 [facility] Last Admin: 11/20/18 18:38 Dose: 0.4 mg Vitamin B Complex/Vit C/Folic Acid (Nephro-Sumit) 1 tab PO 0800 [facility] Last Admin: 11/21/18 11:40 Dose: 1 tab - Labs Labs: 11/21/18 07:10 11/21/18 07:10 PT 13.7 SECONDS (9.4-12.5) H 11/16/18 12:40 INR 1.21 11/16/18 12:40 APTT 28.3 Seconds (26.9-38.3) 11/16/18 12:40
--- NOTE | 2018-11-21 18:39 | CP.PCM.CON ---
<Cadence eMlendez - Last Filed: 11/21/18 18:37> History of Present Illness - History of Present Illness History of Present Illness: General surgery consult note for Dr. Cardoza-Cadence Melendez, PGY-2 Pt seen/examined at bedside. Pt is poor historian, history mostly as per EMR. 73M w/PMH sig for PAD s/p L 2nd toe amputation due to infection (10/11) consulted for possible BKA. Pt reports he came to hospital for left foot pain, however unable to quantify for how long. Denies N & V, F & C, CP, SOB, changes to bowel or bladder habits. PMH: PAD, HTN, DM, CHF, gout, arthritis, Dilated CM, hx EMIL, L foot osteomyelitis PSH: L foot 2nd toe amputation (10/11), hernia repair All: NKDA SH: Former tobacco use (quit 2008), Lives with son, walks with cane FH: Non contributory Review of Systems - Review of Systems Systems not reviewed;Unavailable: Dementia Past Patient History - Infectious Disease Hx of Infectious Diseases: None - Past Social History Smoking Status: Former Smoker - CARDIAC Hx Cardiac Disorders: Yes Hx Congestive Heart Failure: Yes Hx Hypercholesterolemia: Yes Hx Hypertension: Yes Hx Peripheral Vascular Disease: Yes (PAD) - PULMONARY Hx Respiratory Disorders: Yes (SMOKED CIGARETTES .QUIT 35 YRS AGO.) - NEUROLOGICAL Hx Neurological Disorder: No - HEENT Hx HEENT Problems: Yes (eyeglasses) - RENAL Hx Chronic Kidney Disease: No - ENDOCRINE/METABOLIC Hx Endocrine Disorders: Yes Hx Diabetes Mellitus Type 1: Yes - HEMATOLOGICAL/ONCOLOGICAL Hx Blood Disorders: No - INTEGUMENTARY Hx Dermatological Problems: Yes Other/Comment: +1 edema left foot/ankle pitting, left foot 2nd toe amputated, foot red ,swollen, painful, thick toenails. r ft +1 ankle edema, bunyons and great toes crooked b/l - MUSCULOSKELETAL/RHEUMATOLOGICAL Hx Musculoskeletal Disorders: Yes (L 2ND TOE AMPUTATED,GREAT TOE CROOKED LEFT FO OT.BUNIONS) Hx Falls: No Hx Gout: Yes Hx Osteomyelitis: Yes - GASTROINTESTINAL Hx Gastrointestinal Disorders: Yes (CONSTIPATION,HERNIORHAPPHY) - GENITOURINARY/GYNECOLOGICAL Hx Genitourinary Disorders: No - PSYCHIATRIC Hx Psychophysiologic Disorder: No Hx Substance Use: No - SURGICAL HISTORY Hx Surgeries: Yes Other/Comment: Hernia repair. [place] [facility] [place]. L foot 2nd toe amputation - ANESTHESIA Hx Anesthesia: Yes Hx Anesthesia Reactions: No Hx Malignant Hyperthermia: No Meds Allergies/Adverse Reactions: Allergies Allergy/AdvReac Type Severity Reaction Status Date / Time No Known Allergies Allergy Verified 11/16/18 18:45 - Medications Medications: Current Medications Acetaminophen (Tylenol 325mg Tab) 650 mg PO Q6H PRN PRN Reason: Pain, moderate (4-7) Last Admin: 11/20/18 18:36 Dose: 650 mg Acetaminophen (Tylenol 650 Mg Supp) 650 mg RC Q6H PRN PRN Reason: TEMP>=99.5F Acetaminophen (Tylenol 325mg Tab) 650 mg PO Q6 PRN PRN Reason: TEMP>=99.5F Last Admin: 11/21/18 18:06 Dose: 650 mg Acetaminophen (Tylenol 650 Mg Supp) 650 mg RC Q6H PRN PRN Reason: TEMP>=99.5F Allopurinol (Zyloprim) 100 mg PO DAILY [facility] Last Admin: 11/21/18 11:40 Dose: 100 mg Aspirin (Ecotrin) 81 mg PO 0800 [facility] Last Admin: 11/21/18 11:39 Dose: 81 mg Atorvastatin Calcium (Lipitor) 20 mg PO DIN [facility] Last Admin: 11/21/18 17:48 Dose: 20 mg Cilostazol (Pletal) 50 mg PO BID [facility] Last Admin: 11/21/18 17:47 Dose: 50 mg Darbepoetin Arturo (Aranesp) 40 mcg SC QWK [facility] Last Admin: 11/18/18 11:21 Dose: 40 mcg Dextrose (Dextrose 50% Inj) 0 ml IV STAT PRN; Protocol PRN Reason: Hypoglycemia Protocol Docusate Sodium (Colace) 100 mg PO TID [facility] Last Admin: 11/21/18 17:48 Dose: 100 mg Ergocalciferol (Drisdol 50,000 Intl Units Cap) 1 cap PO Q7D [facility] Last Admin: 11/16/18 17:33 Dose: 1 cap Ferrous Sulfate (Feosol) 324 mg PO BID [facility] Last Admin: 11/21/18 17:48 Dose: 324 mg Heparin Sodium (Porcine) (Heparin) 5,000 units SC Q8 [facility]; Protocol Last Admin: 11/21/18 13:19 Dose: 5,000 units Dextrose (Dextrose 5% In Water 1000 Ml) 1,000 mls @ 0 mls/hr IV .Q0M PRN; Protocol PRN Reason: Hypoglycemia Protocol Meropenem/Sodium Chloride (Merrem Iv 500 Mg/Ns 50 Ml) 500 mg in 50 mls @ 100 mls/hr IVPB Q12 [facility]; Protocol Last Admin: 11/21/18 11:57 Dose: 100 mls/hr Insulin Human Lispro (Humalog Med) 0 units SC AC [facility]; Protocol Last Admin: 11/21/18 17:49 Dose: 1 units Insulin Human NPH (Humulin N) [facility] Last Admin: 11/21/18 17:48 Dose: 15 unit Metoprolol Tartrate (Lopressor) 25 mg PO Q8H [facility] Last Admin: 11/21/18 18:07 Dose: 25 mg Ondansetron HCl (Zofran Inj) 4 mg IVP Q4H PRN PRN Reason: Nausea/Vomiting Ondansetron HCl (Zofran Inj) 4 mg IVP Q4H PRN PRN Reason: Nausea/Vomiting Pantoprazole Sodium (Protonix Ec Tab) 40 mg PO 0600 [facility] Last Admin: 11/21/18 06:01 Dose: 40 mg Polyethylene Glycol (Miralax) 17 gm PO BID [facility] Last Admin: 11/21/18 17:48 Dose: 17 gm Sodium Bicarbonate (Sodium Bicarbonate Tab) 650 mg PO BID [facility] Last Admin: 11/21/18 17:48 Dose: 650 mg Tamsulosin HCl (Flomax) 0.4 mg PO 1830 [facility] Last Admin: 11/21/18 17:48 Dose: 0.4 mg Vitamin B Complex/Vit C/Folic Acid (Nephro-Sumit) 1 tab PO 0800 [facility] Last Admin: 11/21/18 11:40 Dose: 1 tab Physical Exam - Constitutional Appears: Non-toxic, No Acute Distress - Head Exam Head Exam: ATRAUMATIC, NORMAL INSPECTION, NORMOCEPHALIC - Eye Exam Eye Exam: EOMI, Normal appearance - ENT Exam ENT Exam: Mucous Membranes Moist, Normal Exam - Neck Exam Neck exam: Positive for: Full Rom, Normal Inspection - Respiratory Exam Respiratory Exam: NORMAL BREATHING PATTERN - Cardiovascular Exam Cardiovascular Exam: REGULAR RHYTHM, +S1, +S2 - GI/Abdominal Exam GI & Abdominal Exam: Soft. absent: Distended, Tenderness - Extremities Exam Extremities exam: Negative for: normal inspection (Left foot with dressing in place- clean/dry/intact. ), pedal pulses present (+ popliteal pulses, - DP, -PT on left foot) - Neurological Exam Additional comments: Awake, AOx 2 (self, place, not time) - Psychiatric Exam Psychiatric exam: Normal Affect, Normal Mood - Skin Skin Exam: Dry, Intact, Normal Color, Warm Results - Vital Signs Recent Vital Signs: Last Vital Signs Temp 100 F H 11/21/18 18:06 Pulse 104 H 11/21/18 14:00 Resp 20 11/21/18 14:00 BP 128/69 11/21/18 14:00 Pulse Ox 97 11/21/18 14:00 - Labs Result Diagrams: 11/21/18 07:10 11/21/18 07:10 Labs: Laboratory Results - last 24 hr 11/18/18 11/20/18 11/21/18 08:00 21:46 06:43 WBC RBC Hgb Hct MCV MCH MCHC RDW Plt Count MPV Neut % (Auto) Lymph % (Auto) [place] % (Auto) Eos % (Auto) Baso % (Auto) Lymph # (Auto) [place] # (Auto) Eos # (Auto) Baso # (Auto) Absolute Neuts (auto) Sodium Potassium Chloride Carbon Dioxide Anion Gap BUN Creatinine Est GFR ( Amer) Est GFR (Non-Af Amer) POC Glucose (mg/dL) 226 H 162 H Random Glucose Calcium Phosphorus Magnesium Total Bilirubin Direct Bilirubin AST ALT Alkaline Phosphatase Total Protein Albumin Globulin Albumin/Globulin Ratio Stool Occult Blood Tot [place]/Lambda Ratio 3.67 H [place] Light Chain Anal 319 Lambda Light Chain Anal 87 L 11/21/18 11/21/18 11/21/18 07:10 07:10 10:00 WBC 16.2 H RBC 3.20 L Hgb 9.8 L Hct 29.7 L MCV 92.8 D MCH 30.6 MCHC 33.0 RDW 17.7 H Plt Count 298 MPV 9.4 Neut % (Auto) 82.1 H Lymph % (Auto) 6.6 L [place] % (Auto) 10.5 H Eos % (Auto) 0.7 L Baso % (Auto) 0.1 Lymph # (Auto) 1.1 L [place] # (Auto) 1.7 H Eos # (Auto) 0.1 Baso # (Auto) 0.02 Absolute Neuts (auto) 13.29 H Sodium 137 Potassium 3.7 Chloride 104 Carbon Dioxide 25 Anion Gap 12 BUN 33 H Creatinine 2.0 H Est GFR ( Amer) 40 Est GFR (Non-Af Amer) 33 POC Glucose (mg/dL) Random Glucose 164 H Calcium 8.7 Phosphorus 3.0 Magnesium 2.0 Total Bilirubin 1.1 Direct Bilirubin 0.2 AST 79 H ALT 56 Alkaline Phosphatase 77 Total Protein 6.8 Albumin 3.4 Globulin 3.4 Albumin/Globulin Ratio 1.0 L Stool Occult Blood Negative Tot [place]/Lambda Ratio [place] Light Chain Anal Lambda Light Chain Anal 11/21/18 11/21/18 11:30 16:20 WBC RBC Hgb Hct MCV MCH MCHC RDW Plt Count MPV Neut % (Auto) Lymph % (Auto) [place] % (Auto) Eos % (Auto) Baso % (Auto) Lymph # (Auto) [place] # (Auto) Eos # (Auto) Baso # (Auto) Absolute Neuts (auto) Sodium Potassium Chloride Carbon Dioxide Anion Gap BUN Creatinine Est GFR ( Amer) Est GFR (Non-Af Amer) POC Glucose (mg/dL) 295 H 184 H Random Glucose Calcium Phosphorus Magnesium Total Bilirubin Direct Bilirubin AST ALT Alkaline Phosphatase Total Protein Albumin Globulin Albumin/Globulin Ratio Stool Occult Blood Tot [place]/Lambda Ratio [place] Light Chain Anal Lambda Light Chain Anal Assessment & Plan - Assessment and Plan (Free Text) Assessment: 73M w/PAD s/p L 2nd toe amputation consulted for possible BKA Plan: LLE MRI without marrow edema suggestive osteomyelitis LE FAHAD exam- moderately abnormal resting ABIs w/B/L popliteal, trifurcation, and or tibial disease Currently being followed by podiatry Surgical recommendations pending attending evaluation BAM Melendez, PGY-2 - Date & Time Date: 11/21/18 Time: 18:39 <Kain Sosa - Last Filed: 12/09/18 19:22> Meds - Medications Medications: Current Medications Acetaminophen (Tylenol 325mg Tab) 650 mg PO Q6H PRN PRN Reason: Pain, Mild (1-3) Last Admin: 12/08/18 09:31 Dose: 650 mg Acetaminophen (Tylenol 325mg Tab) 650 mg PO Q6 PRN PRN Reason: Fever >100.4 F Dextrose (Dextrose 50% Inj) 0 ml IV STAT PRN; Protocol PRN Reason: Hypoglycemia Protocol Dextrose (Dextrose 50% Inj) 0 ml IV STAT PRN; Protocol PRN Reason: Hypoglycemia Protocol Docusate Sodium (Colace) 100 mg PO TID [facility] Last Admin: 12/09/18 18:14 Dose: 100 mg Famotidine (Pepcid) 20 mg PO 1000,2200 [facility] Stop: 12/11/18 10:01 Last Admin: 12/09/18 10:50 Dose: 20 mg Ferrous Gluconate (Fergon) 324 mg PO TID [facility] Last Admin: 12/09/18 18:14 Dose: 324 mg Heparin Sodium (Porcine) (Heparin) 5,000 units SC Q8 [facility]; Protocol Last Admin: 12/09/18 15:31 Dose: 5,000 units Dextrose (Dextrose 5% In Water 1000 Ml) 1,000 mls @ 0 mls/hr IV .Q0M PRN; Protocol PRN Reason: Hypoglycemia Protocol Meropenem/Sodium Chloride (Merrem Iv 500 Mg/Ns 50 Ml) 500 mg in 50 mls @ 100 m ls/hr IVPB Q12 [facility]; Protocol Last Admin: 12/09/18 10:51 Dose: 100 mls/hr Dextrose (Dextrose 5% In Water 1000 Ml) 1,000 mls @ 0 mls/hr IV .Q0M PRN; Protocol PRN Reason: Hypoglycemia Protocol Insulin Human Lispro (Humalog Med) 0 units SC AC [facility]; Protocol Last Admin: 12/09/18 17:00 Dose: 1 units Insulin Human NPH (Humulin N) [facility] Last Admin: 12/09/18 17:03 Dose: 17 unit Midodrine (Proamatine) 5 mg PO TID [facility] Last Admin: 12/09/18 18:14 Dose: 5 mg Nystatin (Nystop Topical Powder) 0 gm TOP BID [facility] Last Admin: 12/09/18 18:17 Dose: 1 appl Ondansetron HCl (Zofran Inj) 4 mg IVP Q4H PRN PRN Reason: Nausea/Vomiting Pantoprazole Sodium (Protonix Ec Tab) 40 mg PO 0600 [facility] Last Admin: 12/09/18 05:37 Dose: 40 mg Polyethylene Glycol (Miralax) 17 gm PO BID [facility] Last Admin: 12/09/18 18:16 Dose: Not Given Sodium Hypochlorite (Dakins Solution 0.25%) 20 ml TOP DAILY [facility] Last Admin: 12/09/18 10:47 Dose: 1 applic Tamsulosin HCl (Flomax) 0.4 mg PO DAILY [facility] Last Admin: 12/09/18 10:49 Dose: 0.4 mg Vitamin B Complex/Vit C/Folic Acid (Nephro-Sumit) 1 tab PO 0800 [facility] Last Admin: 12/09/18 08:17 Dose: 1 tab Results - Vital Signs Recent Vital Signs: Last Vital Signs Temp 98.4 F 12/09/18 13:44 Pulse 94 H 12/09/18 13:44 Resp 20 12/09/18 13:44 BP 97/62 L 12/09/18 13:44 Pulse Ox 100 12/09/18 13:44 - Labs Result Diagrams: 12/09/18 07:30 12/09/18 07:30 Labs: Laboratory Results - last 24 hr 12/08/18 12/09/18 12/09/18 21:07 01:46 05:45 WBC RBC Hgb Hct MCV MCH MCHC RDW Plt Count MPV Sodium Potassium Chloride Carbon Dioxide Anion Gap BUN Creatinine Est GFR ( Amer) Est GFR (Non-Af Amer) POC Glucose (mg/dL) 425 H* 225 H 154 H Random Glucose Calcium Phosphorus Magnesium Total Bilirubin Direct Bilirubin AST ALT Alkaline Phosphatase Total Protein Albumin Globulin Albumin/Globulin Ratio 12/09/18 12/09/18 12/09/18 07:30 07:30 11:21 WBC 13.0 H RBC 3.57 Hgb 11.1 L Hct 33.5 L MCV 93.8 MCH 31.1 MCHC 33.1 RDW 16.3 H Plt Count 421 MPV 10.2 Sodium 135 Potassium 4.9 Chloride 95 L Carbon Dioxide 27 Anion Gap 18 BUN 66 H Creatinine 2.3 H Est GFR ( Amer) 34 Est GFR (Non-Af Amer) 28 POC Glucose (mg/dL) 317 H Random Glucose 172 H Calcium 9.4 Phosphorus 4.4 Magnesium 2.4 H Total Bilirubin 0.9 Direct Bilirubin 0.2 AST 54 ALT 40 Alkaline Phosphatase 98 Total Protein 7.5 Albumin 3.8 Globulin 3.7 Albumin/Globulin Ratio 1.0 L 12/09/18 16:18 WBC RBC Hgb Hct MCV MCH MCHC RDW Plt Count MPV Sodium Potassium Chloride Carbon Dioxide Anion Gap BUN Creatinine Est GFR ( Amer) Est GFR (Non-Af Amer) POC Glucose (mg/dL) 187 H Random Glucose Calcium Phosphorus Magnesium Total Bilirubin Direct Bilirubin AST ALT Alkaline Phosphatase Total Protein Albumin Globulin Albumin/Globulin Ratio Assessment & Plan - Assessment and Plan (Free Text) Plan: Patient was seen, evaluated and examined by me at the bedside. I agree with assessment and plan as stated in the resident's note.
--- NOTE | 2018-11-22 00:29 | PN ---
DATE: 11/21/2018 SUBJECTIVE: The patient is in bed in no acute distress, nontoxic. PHYSICAL EXAMINATION VITAL SIGNS: Temperature is 100, blood pressure is 128/60, respiratory rate 20, heart rate of 104. HEENT: Unremarkable. NECK: Supple. LUNGS: Have decreased breath sounds. HEART: Normal S1 and S2. ABDOMEN: Soft. LABORATORY EXAMINATION: Reveals a white count of 16,000, hemoglobin of 9, platelets of 258. Chemistries are noted and creatinine is 2. C-reactive protein is noted. Microbiology is reviewed with Pseudomonas and group B Strep, hemolytic Strep and beta hemolytic Strep. REVIEW OF ORDERS: Reveals the patient to be on meropenem, which requires renewal. ASSESSMENT AND PLAN: This is a 73-year-old male with sepsis with a left foot cellulitis with Pseudomonas and group B Streptococcus, on meropenem. Awaiting for vascular workup. The patient with hypertension, anemia, kidney disease, diabetes and peripheral vascular disease. May need for further surgical intervention. Tai Landaverde MD
[2018-11-22] MEDS: Pantoprazole 40 mg EC Tab PO SCH (06:34)
[2018-11-22 07:55] LABS: BASO # 0.02 K/mm3 (0.0-2.0); BASO % 0.1 % (0.0-3.0); EOS # 0.2 (0.0-0.7); HEMOGLOBIN 10.3 g/dL (14.0-18.0); LYMPH % 6.6 % (22.0-35.0); MEAN CELL VOLUME 92.9 fl (80.0-105.0); MEAN CORPUSCULAR HEMOGLOBIN 30.6 pg (25.0-35.0); MEAN CORPUSCULAR HGB CONC 32.9 g/dl (31.0-37.0); MEAN PLATELET VOLUME 10.1 fl (7.0-11.0); MONO # 1.8 (0.1-0.6); MONO % 11.4 % (1.0-6.0); RBC 3.37 10^6/uL (3.5-6.1); RED CELL DISTRIBUTION WIDTH 17.6 % (11.5-14.5); WHITE BLOOD COUNT 15.8 10^3/uL (4.5-11.0)
--- NOTE | 2018-11-22 08:05 | CP.PCM.PN ---
<Shlomo Cruz - Last Filed: 11/22/18 16:37> Subjective - Date & Time of Evaluation Date of Evaluation: 11/22/18 Time of Evaluation: 07:25 - Subjective Subjective: PGY1 General surgery progress note for Dr. Sosa Pt seen and examined at bedside. Pt is resting comfortably. Pt is a poor historian, but states, "I'm feeling okay, but I have a little bit of left foot pain." Pain is the same, overall. Denies fever, chills, chest, abdominal pain, n/v/d, dizziness, headache. Objective - Vital Signs/Intake and Output Vital Signs (last 24 hours): Temp Pulse Resp BP Pulse Ox 99.8 F H 98 H 17 128/78 96 11/21/18 22:00 11/22/18 06:34 11/21/18 22:00 11/22/18 06:34 11/21/18 22:00 Intake and Output: 11/22/18 11/22/18 06:59 18:59 Output Total 500 Balance -500 - Medications Medications: Current Medications Acetaminophen (Tylenol 325mg Tab) 650 mg PO Q6H PRN PRN Reason: Pain, moderate (4-7) Last Admin: 11/20/18 18:36 Dose: 650 mg Acetaminophen (Tylenol 650 Mg Supp) 650 mg RC Q6H PRN PRN Reason: TEMP>=99.5F Acetaminophen (Tylenol 325mg Tab) 650 mg PO Q6 PRN PRN Reason: TEMP>=99.5F Last Admin: 11/21/18 18:06 Dose: 650 mg Acetaminophen (Tylenol 650 Mg Supp) 650 mg RC Q6H PRN PRN Reason: TEMP>=99.5F Allopurinol (Zyloprim) 100 mg PO DAILY [facility] Last Admin: 11/21/18 11:40 Dose: 100 mg Aspirin (Ecotrin) 81 mg PO 0800 [facility] Last Admin: 11/21/18 11:39 Dose: 81 mg Atorvastatin Calcium (Lipitor) 20 mg PO DIN [facility] Last Admin: 11/21/18 17:48 Dose: 20 mg Cilostazol (Pletal) 50 mg PO BID [facility] Last Admin: 11/21/18 17:47 Dose: 50 mg Darbepoetin Arturo (Aranesp) 40 mcg SC QWK [facility] Last Admin: 11/18/18 11:21 Dose: 40 mcg Dextrose (Dextrose 50% Inj) 0 ml IV STAT PRN; Protocol PRN Reason: Hypoglycemia Protocol Docusate Sodium (Colace) 100 mg PO TID [facility] Last Admin: 11/21/18 17:48 Dose: 100 mg Ergocalciferol (Drisdol 50,000 Intl Units Cap) 1 cap PO Q7D [facility] Last Admin: 11/16/18 17:33 Dose: 1 cap Ferrous Sulfate (Feosol) 324 mg PO BID [facility] Last Admin: 11/21/18 17:48 Dose: 324 mg Heparin Sodium (Porcine) (Heparin) 5,000 units SC Q8 [facility]; Protocol Last Admin: 11/22/18 06:34 Dose: 5,000 units Dextrose (Dextrose 5% In Water 1000 Ml) 1,000 mls @ 0 mls/hr IV .Q0M PRN; Protocol PRN Reason: Hypoglycemia Protocol Meropenem/Sodium Chloride (Merrem Iv 500 Mg/Ns 50 Ml) 500 mg in 50 mls @ 100 mls/hr IVPB Q12 [facility]; Protocol Last Admin: 11/21/18 22:25 Dose: 100 mls/hr Insulin Human Lispro (Humalog Med) 0 units SC AC [facility]; Protocol Last Admin: 11/21/18 17:49 Dose: 1 units Insulin Human NPH (Humulin N) 15 units SC ACBD [facility] Last Admin: 11/21/18 17:48 Dose: 15 unit Metoprolol Tartrate (Lopressor) 25 mg PO Q8H [facility] Last Admin: 11/22/18 06:34 Dose: 25 mg Ondansetron HCl (Zofran Inj) 4 mg IVP Q4H PRN PRN Reason: Nausea/Vomiting Ondansetron HCl (Zofran Inj) 4 mg IVP Q4H PRN PRN Reason: Nausea/Vomiting Pantoprazole Sodium (Protonix Ec Tab) 40 mg PO 0600 [facility] Last Admin: 11/22/18 06:34 Dose: 40 mg Polyethylene Glycol (Miralax) 17 gm PO BID [facility] Last Admin: 11/21/18 17:48 Dose: 17 gm Sodium Bicarbonate (Sodium Bicarbonate Tab) 650 mg PO BID [facility] Last Admin: 11/21/18 17:48 Dose: 650 mg Tamsulosin HCl (Flomax) 0.4 mg PO 1830 [facility] Last Admin: 11/21/18 17:48 Dose: 0.4 mg Vitamin B Complex/Vit C/Folic Acid (Nephro-Sumit) 1 tab PO 0800 [facility] Last Admin: 11/21/18 11:40 Dose: 1 tab - Labs Labs: 11/21/18 07:10 11/21/18 07:10 PT 13.7 SECONDS (9.4-12.5) H 11/16/18 12:40 INR 1.21 11/16/18 12:40 APTT 28.3 Seconds (26.9-38.3) 11/16/18 12:40 - Additional Findings Additional findings: - Constitutional Appears: Non-toxic, No Acute Distress - Head Exam Head Exam: ATRAUMATIC, NORMAL INSPECTION, NORMOCEPHALIC - Eye Exam Eye Exam: EOMI, Normal appearance - ENT Exam ENT Exam: Mucous Membranes Moist, Normal Exam - Neck Exam Neck exam: Positive for: Full Rom, Normal Inspection - Respiratory Exam Respiratory Exam: NORMAL BREATHING PATTERN - Cardiovascular Exam Cardiovascular Exam: REGULAR RHYTHM, +S1, +S2 - GI/Abdominal Exam GI & Abdominal Exam: Soft. absent: Distended, Tenderness - Extremities Exam Extremities exam: Negative for: normal inspection (Left foot with dressing in place- clean/dry/intact. ), Nonpalpable pulses in bialteral DP and PT (+ popliteal pulses bilaterally). Decreased capillary refill time, but warm. - Neurological Exam Additional comments: Awake, AOx 1 (self) - Psychiatric Exam Psychiatric exam: Normal Affect, Normal Mood - Skin Skin Exam: Dry, Intact, Normal Color, Warm Assessment and Plan - Assessment and Plan (Free Text) Assessment: This is a 73 year old male with PMH of PAD, CKD, HTN, DM, severe MR/TR with HFrEF (35-40%) s/p L 2nd toe amputation. General surgery consulted for possible BKA. Plan: Perpiheral arterial disease; LLE nonhealing ulcer Hx CKD Hx HFrEF (35-40%) LLE MRI shows no marrow edema to suggest osteomyelitis. LE FAHAD exam- moderately abnormal resting ABIs w/B/L popliteal, trifurcation, and or tibial disease Podiatry is following for wound care and changing dressing accordingly. Needs medical and cardiac clearance prior to any surgical intervention. Recommend debridement of necrotic devitalized tissue, or potential TMA, prior to attempting BKA. Further recommendations as per Dr. Ian Cruz PGY1 <Kain Sosa - Last Filed: 12/09/18 19:22> Objective - Vital Signs/Intake and Output Vital Signs (last 24 hours): Temp Pulse Resp BP Pulse Ox 98.4 F 94 H 20 97/62 L 100 12/09/18 13:44 12/09/18 13:44 12/09/18 13:44 12/09/18 13:44 12/09/18 13:44 Intake and Output: 12/09/18 12/09/18 06:59 18:59 Intake Total 480 Output Total 300 Balance 180 - Medications Medications: Current Medications Acetaminophen (Tylenol 325mg Tab) 650 mg PO Q6H PRN PRN Reason: Pain, Mild (1-3) Last Admin: 12/08/18 09:31 Dose: 650 mg Acetaminophen (Tylenol 325mg Tab) 650 mg PO Q6 PRN PRN Reason: Fever >100.4 F Dextrose (Dextrose 50% Inj) 0 ml IV STAT PRN; Protocol PRN Reason: Hypoglycemia Protocol Dextrose (Dextrose 50% Inj) 0 ml IV STAT PRN; Protocol PRN Reason: Hypoglycemia Protocol Docusate Sodium (Colace) 100 mg PO TID [facility] Last Admin: 12/09/18 18:14 Dose: 100 mg Famotidine (Pepcid) 20 mg PO 1000,2200 [facility] Stop: 12/11/18 10:01 Last Admin: 12/09/18 10:50 Dose: 20 mg Ferrous Gluconate (Fergon) 324 mg PO TID [facility] Last Admin: 12/09/18 18:14 Dose: 324 mg Heparin Sodium (Porcine) (Heparin) 5,000 units SC Q8 [facility]; Protocol Last Admin: 12/09/18 15:31 Dose: 5,000 units Dextrose (Dextrose 5% In Water 1000 Ml) 1,000 mls @ 0 mls/hr IV .Q0M PRN; Protocol PRN Reason: Hypoglycemia Protocol Meropenem/Sodium Chloride (Merrem Iv 500 Mg/Ns 50 Ml) 500 mg in 50 mls @ 100 mls/hr IVPB Q12 [facility]; Protocol Last Admin: 12/09/18 10:51 Dose: 100 mls/hr Dextrose (Dextrose 5% In Water 1000 Ml) 1,000 mls @ 0 mls/hr IV .Q0M PRN; Protocol PRN Reason: Hypoglycemia Protocol Insulin Human Lispro (Humalog Med) 0 units SC AC [facility]; Protocol Last Admin: 12/09/18 17:00 Dose: 1 units Insulin Human NPH (Humulin N) 17 units SC ACBD [facility] Last Admin: 12/09/18 17:03 Dose: 17 unit Midodrine (Proamatine) 5 mg PO TID [facility] Last Admin: 12/09/18 18:14 Dose: 5 mg Nystatin (Nystop Topical Powder) 0 gm TOP BID [facility] Last Admin: 12/09/18 18:17 Dose: 1 appl Ondansetron HCl (Zofran Inj) 4 mg IVP Q4H PRN PRN Reason: Nausea/Vomiting Pantoprazole Sodium (Protonix Ec Tab) 40 mg PO 0600 [facility] Last Admin: 12/09/18 05:37 Dose: 40 mg Polyethylene Glycol (Miralax) 17 gm PO BID [facility] Last Admin: 12/09/18 18:16 Dose: Not Given Sodium Hypochlorite (Dakins Solution 0.25%) 20 ml TOP DAILY [facility] Last Admin: 12/09/18 10:47 Dose: 1 applic Tamsulosin HCl (Flomax) 0.4 mg PO DAILY [facility] Last Admin: 12/09/18 10:49 Dose: 0.4 mg Vitamin B Complex/Vit C/Folic Acid (Nephro-Sumit) 1 tab PO 0800 [facility] Last Admin: 12/09/18 08:17 Dose: 1 tab - Labs Labs: 12/09/18 07:30 12/09/18 07:30 PT 14.7 SECONDS (9.4-12.5) H 11/25/18 13:05 INR 1.30 11/25/18 13:05 APTT 26.3 Seconds (26.9-38.3) L 11/25/18 13:05 Assessment and Plan - Assessment and Plan (Free Text) Assessment: Patient was seen, evaluated and examined by me at the bedside. I agree with assessment and plan as stated in the resident's note.
[2018-11-22 08:10] LABS: ALBUMIN 3.6 g/dL (3.0-4.8); BILIRUBIN,DIRECT 0.4 mg/dL (0.0-0.4); CALCIUM 9.1 mg/dL (8.4-10.5)
[2018-11-22] MEDS: Insulin Lispro (humaLOG) MEDIUM Coverage SC SCH ×3 (08:15→17:28)
[2018-11-22] MEDS: Multivitamin Vitamin B Complex (Nephro-Vite) Tab PO SCH (08:15)
[2018-11-22] MEDS: Insulin Human NPH 1 UNITS/0.01 ML SC SCH ×2 (08:16→17:28)
[2018-11-22] MEDS: MEROPENEM 500 MG in NS 500 MG/50 ML BAG IVPB SCH ×2 (09:49→21:33)
[2018-11-22] MEDS: POLYETHYLENE GLYCOL 3350 17 GM/Dose PACKET PO SCH ×2 (09:50→17:27)
[2018-11-22] MEDS: Cilostazol 50 mg Tab UD PO SCH ×2 (09:50→17:27)
--- NOTE | 2018-11-22 11:58 | CP.PCM.PN ---
Subjective - Date & Time of Evaluation Date of Evaluation: 11/22/18 Time of Evaluation: 11:54 - Subjective Subjective: Podiatry progress note - Dr. Heller 73M seen and evalated with Dr. Heller at bedside for L foot cellulitis with vascular changes. Patient resting comfortably and in no acute distress. Endorses + pain to his L foot at this time. Denies n/v/c/f/sob and reports not acute events overnight. Objective - Vital Signs/Intake and Output Vital Signs (last 24 hours): Temp Pulse Resp BP Pulse Ox 98.4 F 98 H 18 128/78 96 11/22/18 06:00 11/22/18 06:34 11/22/18 06:00 11/22/18 06:34 11/22/18 06:00 Intake and Output: 11/22/18 11/22/18 06:59 18:59 Output Total 500 Balance -500 - Medications Medications: Current Medications Acetaminophen (Tylenol 325mg Tab) 650 mg PO Q6H PRN PRN Reason: Pain, moderate (4-7) Last Admin: 11/20/18 18:36 Dose: 650 mg Acetaminophen (Tylenol 650 Mg Supp) 650 mg RC Q6H PRN PRN Reason: TEMP>=99.5F Acetaminophen (Tylenol 325mg Tab) 650 mg PO Q6 PRN PRN Reason: TEMP>=99.5F Last Admin: 11/21/18 18:06 Dose: 650 mg Acetaminophen (Tylenol 650 Mg Supp) 650 mg RC Q6H PRN PRN Reason: TEMP>=99.5F Allopurinol (Zyloprim) 100 mg PO DAILY [facility] Last Admin: 11/22/18 09:50 Dose: 100 mg Aspirin (Ecotrin) 81 mg PO 0800 [facility] Last Admin: 11/22/18 08:15 Dose: 81 mg Atorvastatin Calcium (Lipitor) 20 mg PO DIN [facility] Last Admin: 11/21/18 17:48 Dose: 20 mg Cilostazol (Pletal) 50 mg PO BID [facility] Last Admin: 11/22/18 09:50 Dose: 50 mg Darbepoetin Arturo (Aranesp) 40 mcg SC QWK [facility] Last Admin: 11/18/18 11:21 Dose: 40 mcg Dextrose (Dextrose 50% Inj) 0 ml IV STAT PRN; Protocol PRN Reason: Hypoglycemia Protocol Docusate Sodium (Colace) 100 mg PO TID [facility] Last Admin: 11/22/18 09:50 Dose: 100 mg Ergocalciferol (Drisdol 50,000 Intl Units Cap) 1 cap PO Q7D [facility] Last Admin: 11/16/18 17:33 Dose: 1 cap Ferrous Sulfate (Feosol) 324 mg PO BID [facility] Last Admin: 11/22/18 09:50 Dose: 324 mg Heparin Sodium (Porcine) (Heparin) 5,000 units SC Q8 [facility]; Protocol Last Admin: 11/22/18 06:34 Dose: 5,000 units Dextrose (Dextrose 5% In Water 1000 Ml) 1,000 mls @ 0 mls/hr IV .Q0M PRN; Protocol PRN Reason: Hypoglycemia Protocol Meropenem/Sodium Chloride (Merrem Iv 500 Mg/Ns 50 Ml) 500 mg in 50 mls @ 100 mls/hr IVPB Q12 [facility]; Protocol Last Admin: 11/22/18 09:49 Dose: 100 mls/hr Insulin Human Lispro (Humalog Med) 0 units SC AC [facility]; Protocol Last Admin: 11/22/18 08:15 Dose: 3 units Insulin Human NPH (Humulin N) 15 units SC ACBD [facility] Last Admin: 11/22/18 08:16 Dose: 15 unit Metoprolol Tartrate (Lopressor) 25 mg PO Q8H [facility] Last Admin: 11/22/18 06:34 Dose: 25 mg Ondansetron HCl (Zofran Inj) 4 mg IVP Q4H PRN PRN Reason: Nausea/Vomiting Ondansetron HCl (Zofran Inj) 4 mg IVP Q4H PRN PRN Reason: Nausea/Vomiting Pantoprazole Sodium (Protonix Ec Tab) 40 mg PO 0600 [facility] Last Admin: 11/22/18 06:34 Dose: 40 mg Polyethylene Glycol (Miralax) 17 gm PO BID [facility] Last Admin: 11/22/18 09:50 Dose: 17 gm Tamsulosin HCl (Flomax) 0.4 mg PO 1830 [facility] Last Admin: 11/21/18 17:48 Dose: 0.4 mg Vitamin B Complex/Vit C/Folic Acid (Nephro-Sumit) 1 tab PO 0800 [facility] Last Admin: 11/22/18 08:15 Dose: 1 tab - Labs Labs: 11/22/18 07:30 11/22/18 07:30 PT 13.7 SECONDS (9.4-12.5) H 11/16/18 12:40 INR 1.21 11/16/18 12:40 APTT 28.3 Seconds (26.9-38.3) 11/16/18 12:40 - Constitutional Appears: Non-toxic - Head Exam Head Exam: ATRAUMATIC - Extremities Exam Additional comments: LLE focused exam VASC: DP and Pt non-palpable, CFT delayed, significant edema to the left forefoot, TG warm to warm NEURO: diminished sensation with tingling, gross sensation intact DERM: significant skin loss with erythema to the forefoot, increasing gangrenous changes noted, positive drainage noted, no obvious wounds that probe to bone, tunnel or track, positive malodor, significant pain on palpation ORTHO: mild pain on palpation of forefoot - Neurological Exam Neurological Exam: Alert, Awake, Oriented x3 - Psychiatric Exam Psychiatric exam: Normal Affect Assessment and Plan - Assessment and Plan (Free Text) Assessment: 73M with cellulitis and gangrenous changes to the L foot Plan: Patient seen and evaluated with Dr. Heller WBC 15.8, ESR 122, CRP >15.0 Left Foot X-ray: chronic osteo, no soft tissue emphysema noted at this time Wound Culture: Gram neg rods, group B strep FAHAD/PVR: abnormal FAHAD/PVR Ordered Left foot MRI- limited study, no osteomyelitis Infectious disease consult, recommendations appreciated Cardiology recommendations appreciated- as per Dr. Murrell, patient at high risk for any anesthesia and patient has refused all workup As per Dr Heller, no plan for podiatric intervention at this time- will continue to monitor Discussed with patients son possible vascular intervention and trying to do TMA vs BKA with surgical team F/U with Vasc recs per Dr. Lujan
--- NOTE | 2018-11-22 13:40 | PN ---
DATE: 11/22/2018 CARDIOLOGY FOLLOWUP SUBJECTIVE: The patient is chest pain free. PHYSICAL EXAMINATION: VITAL SIGNS: Blood pressure is 128/78 and heart rates in the 90's. NECK: Negative JVD. LUNGS: Without rales. CARDIOVASCULAR: Reveals S1 and S2. EXTREMITIES: Unchanged. LABORATORY DATA: BUN and creatinine 33 and 1.9 with a glucose 205. Hemoglobin is 10.3. IMPRESSION: 1. Cellulitis in the lower extremities. 2. Ischemic dilated cardiomyopathy. 3. High probability for coronary artery disease. 4. Peripheral vascular disease. 5. Renal insufficiency. 6. Anemia. Given these findings, the patient is on increased risk for any potential planned surgical intervention. Milton Murrell MD
--- NOTE | 2018-11-22 13:47 | CP.PCM.PCO ---
Physician Communication Note - Physician Communication Note Physician Communication Note: possible BKA, will await recs from surgery
--- NOTE | 2018-11-22 14:40 | CP.PCM.PN ---
Subjective - Date & Time of Evaluation Date of Evaluation: 11/22/18 Time of Evaluation: 14:37 - Subjective Subjective: Nephrology Consultation Note: Assessment: Stable Acute Kidney Injury (N17.9) likely due to sepsis with cellulitis: Improved with IVF metabolic acidosis Diabetic chronic Kidney Disease (E11.22) Hypertensive Chronic Kidney Disease (I12.9) Chronic Kidney Disease (N18.3) Stage 3 without proteinuria (R80.9) likely due to HTN/vasc disease Anemia (D64.9), DM, gout PVD severe MR/TR with sys CHF LVEF 35-40% MGUS Plan No acute need for renal replacement therapy at this time. Hypertension control with meds as ordered. Maintain hemodynamics stable. Avoid hypotension. Patient not on ACEI/ARB due to EMIL and hyperkalemia tendency. consider to add once stable. Monitor Input/Output, daily weights and renal function with basic metabolic panel continue with iron and MVI. PRBC as needed. dose of aransep 40 mcg 11/17/18. K/L ratio remains high at 3.6. suggest hematology eval vit d can be changed to once a month as last level 41 continue with flomax d/c bicarb if pt need angiogram, he will be at increased risk of contrast nephropathy. suggest IVF pre-procedure NS @ 100 ml/hr to reduce the risk of EMIL. for possible left BKA Dose meds/antibiotics for reduced GFR. Avoid fleets enema/magnesium based laxatives. Avoid nephrotoxins/NSAIDs/ iodinated contrast (unless needed emergently) Glycemic control Further work up/management as per primary team Thanks for allowing me to participate in care of your patient. Will follow patient with you. Please call if any Qs. had d/w team and son Dr Anjum Padron Office: [phone] Chief Complaint; Foot ulcer Reason for consult: Acute Kidney Injury HPI: Pt is a 73 M with hx of diabetes Mellitus (30 years), hypertension (years) PVD, Gout CKD 3 with baseline cr 1.8-1.9 presented with complaints of foot ulcer, being managed for cellulitis. seen for EMIL and pt also with PVD Denies OTC/herbal meds or NSAIDs. No recent iodinated contrast exposure. Noted obvious episodes of low BP. pt still not aware about kidney disease in past ROS: noted overnight events Cardiovascular: No chest pain. Pulmonary: No shortness of breath Gastrointestinal: denies abdominal pain No nausea. No vomiting. Genitourinary: No pain while urinating. Denies blood in urine. sometimes feels hesitancy. All other negative except as mentioned in HPI. per son, pt refused to go for ou tpt follow ups Physical Examination: General Appearance: Comfortable, in no acute respiratory distress, co-operative . Vitals reviewed and noted as below Head; Atraumatic, normocephalic ENT: no ulcers no thrush. Tongue is midline. Oropharynx: no rash or ulcers. EYES: Pupils are equal, round and reactive to light accommodation. Eye muscles and extra-ocular movement intact. Sclera is anicteric. Neck; supple no lymphadenopathy, no thyromegaly or bruit Lungs: Normal respiratory rate/effort. Breath sounds bilateral equal and clear Heart: Normal rate. s1s2 normal. No rub or gallop. Extremities: no edema. No varicose veins. left foot in dressing Neurological: Patient is alert, awake and oriented to person, place and time. No focal deficit. Strength bilateral appropriate and equal Skin: Warm and dry. Normal turgor. No rash. Palpitation: Normal elasticity for age Abdomen: Abdomen is soft. Bowel sounds +. There is no abdominal tenderness, no guarding/rigidity no organomegaly Psych: lack insight and normal affect/mood MSK: no joint tenderness or swelling. Digits and nails normal, no deformity : kidney or bladder not palpable. Labs/imaging reviewed. Past medical history, past surgical history, family history, social history, allergy reviewed and noted as below Family hx: no hx of CKD. Rest non-contributory Phos 3.5 TSAT 13% Vit D 41 PTH 49 LDL 103 kappa/lambda 3.4 uric acid 7.5 renal cyst left side Objective - Vital Signs/Intake and Output Vital Signs (last 24 hours): Temp Pulse Resp BP Pulse Ox 100.0 F H 98 H 18 128/78 96 11/22/18 14:09 11/22/18 06:34 11/22/18 06:00 11/22/18 06:34 11/22/18 06:00 Intake and Output: 11/22/18 11/22/18 06:59 18:59 Output Total 500 Balance -500 - Medications Medications: Current Medications Acetaminophen (Tylenol 325mg Tab) 650 mg PO Q6H PRN PRN Reason: Pain, moderate (4-7) Last Admin: 11/20/18 18:36 Dose: 650 mg Acetaminophen (Tylenol 650 Mg Supp) 650 mg RC Q6H PRN PRN Reason: TEMP>=99.5F Acetaminophen (Tylenol 325mg Tab) 650 mg PO Q6 PRN PRN Reason: TEMP>=99.5F Last Admin: 11/22/18 14:09 Dose: 650 mg Acetaminophen (Tylenol 650 Mg Supp) 650 mg RC Q6H PRN PRN Reason: TEMP>=99.5F Allopurinol (Zyloprim) 100 mg PO DAILY [facility] Last Admin: 11/22/18 09:50 Dose: 100 mg Aspirin (Ecotrin) 81 mg PO 0800 [facility] Last Admin: 11/22/18 08:15 Dose: 81 mg Atorvastatin Calcium (Lipitor) 20 mg PO DIN [facility] Last Admin: 11/21/18 17:48 Dose: 20 mg Cilostazol (Pletal) 50 mg PO BID [facility] Last Admin: 11/22/18 09:50 Dose: 50 mg Darbepoetin Arturo (Aranesp) 40 mcg SC QWK [facility] Last Admin: 11/18/18 11:21 Dose: 40 mcg Dextrose (Dextrose 50% Inj) 0 ml IV STAT PRN; Protocol PRN Reason: Hypoglycemia Protocol Docusate Sodium (Colace) 100 mg PO TID [facility] Last Admin: 11/22/18 14:08 Dose: 100 mg Ergocalciferol (Drisdol 50,000 Intl Units Cap) 1 cap PO Q7D [facility] Last Admin: 11/16/18 17:33 Dose: 1 cap Ferrous Sulfate (Feosol) 324 mg PO BID [facility] Last Admin: 11/22/18 09:50 Dose: 324 mg Heparin Sodium (Porcine) (Heparin) 5,000 units SC Q8 [facility]; Protocol Last Admin: 11/22/18 14:08 Dose: 5,000 units Dextrose (Dextrose 5% In Water 1000 Ml) 1,000 mls @ 0 mls/hr IV .Q0M PRN; Protocol PRN Reason: Hypoglycemia Protocol Meropenem/Sodium Chloride (Merrem Iv 500 Mg/Ns 50 Ml) 500 mg in 50 mls @ 100 mls/hr IVPB Q12 [facility]; Protocol Last Admin: 11/22/18 09:49 Dose: 100 mls/hr Insulin Human Lispro (Humalog Med) 0 units SC AC [facility]; Protocol Last Admin: 11/22/18 12:19 Dose: 5 units Insulin Human NPH (Humulin N) 15 units SC ACBD [facility] Last Admin: 11/22/18 08:16 Dose: 15 unit Metoprolol Tartrate (Lopressor) 25 mg PO Q8H [facility] Last Admin: 11/22/18 14:09 Dose: 25 mg Ondansetron HCl (Zofran Inj) 4 mg IVP Q4H PRN PRN Reason: Nausea/Vomiting Ondansetron HCl (Zofran Inj) 4 mg IVP Q4H PRN PRN Reason: Nausea/Vomiting Pantoprazole Sodium (Protonix Ec Tab) 40 mg PO 0600 [facility] Last Admin: 11/22/18 06:34 Dose: 40 mg Polyethylene Glycol (Miralax) 17 gm PO BID [facility] Last Admin: 11/22/18 09:50 Dose: 17 gm Tamsulosin HCl (Flomax) 0.4 mg PO 1830 [facility] Last Admin: 11/21/18 17:48 Dose: 0.4 mg Vitamin B Complex/Vit C/Folic Acid (Nephro-Sumit) 1 tab PO 0800 [facility] Last Admin: 11/22/18 08:15 Dose: 1 tab - Labs Labs: 11/22/18 07:30 11/22/18 07:30 PT 13.7 SECONDS (9.4-12.5) H 11/16/18 12:40 INR 1.21 11/16/18 12:40 APTT 28.3 Seconds (26.9-38.3) 11/16/18 12:40
[2018-11-22] MEDS ORDERED: Dextrose 50% SYRINGE Inj (50 ml) IV PRN (18:32)
--- NOTE | 2018-11-22 21:56 | PN ---
DATE: 11/22/2018 SUBJECTIVE: The patient is in bed, in no acute distress, nontoxic. PHYSICAL EXAMINATION VITAL SIGNS: Temperature is 98, blood pressure is 119/60, respiratory of 18. HEENT: Unremarkable. NECK: Supple. LUNGS: Have decreased breath sounds. HEART: Normal S1, S2. ABDOMEN: Soft, nontender. LABORATORY DATA: Reveals a white count of 15,000, BUN of 33, creatinine of 1.9. ASSESSMENT AND PLAN: A 73-year-old male with sepsis with a left foot cellulitis and Pseudomonas and group B Streptococcus on meropenem, awaiting vascular workup. The patient is also with hypertension, anemia, kidney disease and possible below-knee amputation, awaiting for surgical recommendation. Tai Landaverde MD
--- NOTE | 2018-11-22 23:07 | CP.PCM.PN ---
<Evans Waterman - Last Filed: 11/22/18 23:47> Subjective - Date & Time of Evaluation Date of Evaluation: 11/22/18 Time of Evaluation: 07:41 - Subjective Subjective: Evans Waterman PGY2 IM Progress Note for Dr. Ling Patient was seen and examined at bedside. He is oriented only to self but states that his leg is feeling a little better. denies any fevers/chills. nursing and validation consultant notes were reviewed. Dr. Ling discussed with Dr. Lujan regarding possibly moving forward with BKA at surgery team's discretion. Objective - Vital Signs/Intake and Output Vital Signs (last 24 hours): Temp Pulse Resp BP Pulse Ox 98.8 F 129 H 20 107/61 95 11/22/18 21:33 11/22/18 22:36 11/22/18 21:33 11/22/18 22:36 11/22/18 22:36 Intake and Output: 11/22/18 11/23/18 18:59 06:59 Intake Total 480 480 Output Total 350 700 Balance 130 -220 - Medications Medications: Current Medications Acetaminophen (Tylenol 325mg Tab) 650 mg PO Q6H PRN PRN Reason: Pain, moderate (4-7) Last Admin: 11/20/18 18:36 Dose: 650 mg Acetaminophen (Tylenol 650 Mg Supp) 650 mg RC Q6H PRN PRN Reason: TEMP>=99.5F Acetaminophen (Tylenol 325mg Tab) 650 mg PO Q6 PRN PRN Reason: TEMP>=99.5F Last Admin: 11/22/18 14:09 Dose: 650 mg Acetaminophen (Tylenol 650 Mg Supp) 650 mg RC Q6H PRN PRN Reason: TEMP>=99.5F Allopurinol (Zyloprim) 100 mg PO DAILY [facility] Last Admin: 11/22/18 09:50 Dose: 100 mg Aspirin (Ecotrin) 81 mg PO 0800 [facility] Last Admin: 11/22/18 08:15 Dose: 81 mg Atorvastatin Calcium (Lipitor) 20 mg PO DIN [facility] Last Admin: 11/22/18 17:27 Dose: 20 mg Cilostazol (Pletal) 50 mg PO BID [facility] Last Admin: 11/22/18 17:27 Dose: 50 mg Darbepoetin Arturo (Aranesp) 40 mcg SC QWK [facility] Last Admin: 11/18/18 11:21 Dose: 40 mcg Dextrose (Dextrose 50% Inj) 0 ml IV STAT PRN; Protocol PRN Reason: Hypoglycemia Protocol Docusate Sodium (Colace) 100 mg PO TID [facility] Last Admin: 11/22/18 17:28 Dose: 100 mg Ergocalciferol (Drisdol 50,000 Intl Units Cap) 1 cap PO ONCE ONE Stop: 11/28/18 10:01 Ferrous Sulfate (Feosol) 324 mg PO BID [facility] Last Admin: 11/22/18 17:27 Dose: 324 mg Heparin Sodium (Porcine) (Heparin) 5,000 units SC Q8 [facility]; Protocol Last Admin: 11/22/18 21:33 Dose: 5,000 units Meropenem/Sodium Chloride (Merrem Iv 500 Mg/Ns 50 Ml) 500 mg in 50 mls @ 100 mls/hr IVPB Q12 [facility]; Protocol Last Admin: 11/22/18 21:33 Dose: 100 mls/hr Dextrose (Dextrose 5% In Water 1000 Ml) 1,000 mls @ 0 mls/hr IV .Q0M PRN; Protocol PRN Reason: Hypoglycemia Protocol Insulin Human Lispro (Humalog Med) 0 units SC AC [facility]; Protocol Last Admin: 11/22/18 17:28 Dose: 3 units Insulin Human NPH (Humulin N) 20 units SC [facility] Metoprolol Tartrate (Lopressor) 25 mg PO Q8H [facility] Last Admin: 11/22/18 21:33 Dose: 25 mg Ondansetron HCl (Zofran Inj) 4 mg IVP Q4H PRN PRN Reason: Nausea/Vomiting Ondansetron HCl (Zofran Inj) 4 mg IVP Q4H PRN PRN Reason: Nausea/Vomiting Pantoprazole Sodium (Protonix Ec Tab) 40 mg PO 0600 [facility] Last Admin: 11/22/18 06:34 Dose: 40 mg Polyethylene Glycol (Miralax) 17 gm PO BID [facility] Last Admin: 11/22/18 17:27 Dose: 17 gm Tamsulosin HCl (Flomax) 0.4 mg PO 1830 [facility] Last Admin: 11/22/18 17:30 Dose: 0.4 mg Vitamin B Complex/Vit C/Folic Acid (Nephro-Sumit) 1 tab PO 0800 [facility] Last Admin: 11/22/18 08:15 Dose: 1 tab - Labs Labs: 11/22/18 07:30 11/22/18 07:30 PT 13.7 SECONDS (9.4-12.5) H 11/16/18 12:40 INR 1.21 11/16/18 12:40 APTT 28.3 Seconds (26.9-38.3) 11/16/18 12:40 - Constitutional Appears: Well, Non-toxic, No Acute Distress - Head Exam Head Exam: ATRAUMATIC, NORMAL INSPECTION - Eye Exam Eye Exam: Normal appearance, PERRL - ENT Exam ENT Exam: Mucous Membranes Moist, Normal Exam - Neck Exam Neck Exam: Full ROM, Normal Inspection - Respiratory Exam Respiratory Exam: NORMAL BREATHING PATTERN. absent: Respiratory Distress - Cardiovascular Exam Cardiovascular Exam: RRR, +S1, +S2 - GI/Abdominal Exam GI & Abdominal Exam: Soft. absent: Distended, Tenderness - Extremities Exam Extremities Exam: absent: Normal Inspection Additional comments: poor right peripheral pulses absent LLE DP/PT pulses gangrenous looking left foot - Neurological Exam Neurological Exam: Awake. absent: Oriented x3 - Skin Skin Exam: Normal Color, Warm Additional comments: foot changes as above Assessment and Plan - Assessment and Plan (Free Text) Assessment: 73 year old male with a PMH of PAD s/p 2nd left toe amputation (09/2017), DM2, C HFrEF, gout and arthritis who presented for left foot pain x2 months, but recently worsening. Patient found to have severe PAD, cellulitis of left foot due to pseudomonas w/ gangrenous changes. MRI showed no osteomyelitis changes. Plan: - attempted to contact Son (Herve) today via phone listed on chart with no success - Surgery team following for possible L BKA, awaiting recs - Podiatry team suggesting no intervention, will f/u - ID team consulted, recs appreciated - cont Abx per ID recs, on Meropenem - restart home meds - cont cilostazol - tylenol PRN fevers - Heparin for DVT ppx - PPI for GI ppx - further recs per Dr. Ling Case was reviewed with Dr. Ling <Niranjan Ling - Last Filed: 12/13/18 14:28> Objective - Vital Signs/Intake and Output Vital Signs (last 24 hours): Temp Pulse Resp BP Pulse Ox 98.3 F 94 H 17 93/57 L 99 12/12/18 14:00 12/12/18 14:00 12/12/18 14:00 12/12/18 14:00 12/12/18 14:00 - Medications Medications: Current Medications Acetaminophen (Tylenol 325mg Tab) 650 mg PO Q6 PRN PRN Reason: TEMP>=99.5F Last Admin: 12/12/18 22:42 Dose: 650 mg Acetaminophen (Tylenol 650 Mg Supp) 650 mg RC Q6H PRN PRN Reason: TEMP>=99.5F Dextrose (Dextrose 50% Inj) 0 ml IV STAT PRN; Protocol PRN Reason: Hypoglycemia Protocol Docusate Sodium (Colace) 100 mg PO TID [facility] Last Admin: 12/13/18 10:27 Dose: 100 mg Ferrous Gluconate (Fergon) 324 mg PO TID [facility] Last Admin: 12/13/18 10:28 Dose: 324 mg Heparin Sodium (Porcine) (Heparin) 5,000 units SC Q8 [facility]; Protocol Last Admin: 12/13/18 05:03 Dose: 5,000 units Dextrose (Dextrose 5% In Water 1000 Ml) 1,000 mls @ 0 mls/hr IV .Q0M PRN; Protocol PRN Reason: Hypoglycemia Protocol Insulin Human Lispro (Humalog Med) 0 units SC AC [facility]; Protocol Last Admin: 12/13/18 12:48 Dose: 5 units Insulin Human NPH (Humulin N) [facility] Last Admin: 12/13/18 10:28 Dose: 17 unit Metoclopramide HCl (Reglan) 10 mg IV ONCE PRN PRN Reason: Nausea/Vomiting Midodrine (Proamatine) 10 mg PO TID [facility] Last Admin: 12/13/18 10:28 Dose: 10 mg Nystatin (Nystop Topical Powder) 0 gm TOP BID [facility] Last Admin: 12/13/18 10:31 Dose: 1 appl Ondansetron HCl (Zofran Inj) 4 mg IVP Q4H PRN PRN Reason: Nausea/Vomiting Pantoprazole Sodium (Protonix Ec Tab) 40 mg PO 0600 [facility] Last Admin: 12/13/18 05:03 Dose: 40 mg Polyethylene Glycol (Miralax) 17 gm PO BID [facility] Last Admin: 12/13/18 10:28 Dose: 17 gm Tamsulosin HCl (Flomax) 0.4 mg PO DAILY [facility] Last Admin: 12/13/18 10:28 Dose: 0.4 mg Vitamin B Complex/Vit C/Folic Acid (Nephro-Sumit) 1 tab PO 0800 [facility] Last Admin: 12/13/18 10:28 Dose: 1 tab - Labs Labs: 12/13/18 07:00 12/13/18 07:00 PT 12.6 SECONDS (9.4-12.5) H 12/10/18 13:10 INR 1.12 12/10/18 13:10 APTT 30.3 Seconds (26.9-38.3) 12/10/18 13:10 Attending/Attestation - Attestation I have personally seen and examined this patient.: Yes I have fully participated in the care of the patient.: Yes I have reviewed all pertinent clinical information, including history, physical exam and plan: Yes Notes (Text): Please see/read my dictated notes.
--- NOTE | 2018-11-23 00:02 | PN ---
DATE: 11/22/2018 SUBJECTIVE: The patient is seen lying in the bed in room 575, bed 2. The patient is alert, awake, responsive. The patient's left foot dressing is removed today and the wound was reexamined. The patient has blackish discoloration of the left foot great toe and forefoot, and the other toes also appear to be gangrenous and black. Patient's overnight nurse's notes were reviewed. PHYSICAL EXAMINATION VITAL SIGNS: T-max 100 degrees Fahrenheit, heart rate 98, they were 104, 110, blood pressure 119/69, 128/78, 113/59, respiration 18 to 20, and O2 sat 96% to 97%. HEENT: Head; normocephalic, atraumatic. HEENT examination shows pinkish pale conjunctivae. Anicteric sclerae. No oropharyngeal lesion. NECK: No neck rigidity. CHEST: Kyphosis. LUNGS: No audible crackle, rales or wheezing. CARDIOVASCULAR: S1, S2, regular rhythm. Positive systolic murmur left sternal border, right second intercostal space, left second intercostal space. ABDOMEN: Soft, positive bowel sounds. GENITALIA: Male. RECTAL: Deferred. EXTREMITIES: No pitting edema. Positive blackish discoloration and gangrenous discoloration of the left foot forefoot and the great toe and the second and third toe also with some erythema. MUSCULOSKELETAL: A body mass index of 23.4. NEUROLOGIC: The patient is alert, awake, responsive, is able to move upper and lower extremity without assistance. Gait examination is not tested. VASCULAR: Decreased pulses. DIAGNOSTICS: 11/22/2018; WBC count is still high at 15.8, hemoglobin/hematocrit 10.3, 31.3, and platelets 269, granulocytes 81. Sodium 139, potassium 3.9, chloride 100, CO2 of 28, anion gap 15, BUN 33, creatinine 1.9, GFR 35, glucose 205, calcium 9.1, phosphorus 3.1, magnesium 2, AST 65. Stool occult blood negative x2. The urine blood cultures are negative. Left leg left foot cultures; Pseudomonas aeruginosa and group B strep beta hemolytic. The patient received 2 units of PRBC. The patient was found of the nurses to be episodic, there was noted to be some confusion. The patient was seen by Dr. Sosa today. The patient was found to be alert, awake, oriented x2. IMPRESSION AND PLAN 1. Fever. 2. Sinus tachycardia. 3. Pseudomonas nose group. Group B streptococcus group B beta hemolytic left foot diabetic foot ulcerations and cellulitis and gangrene. 4. Severe peripheral vascular disease. 5. Persistent refractory leukocytosis with granulocytosis. 6. Anemia with decreasing hemoglobin/hematocrit. 7. Elevated erythrocyte sedimentation rate of 122. 8. Chronic kidney disease, stage 3. 9. Hyperglycemia secondary to uncontrolled diabetes mellitus with hemoglobin A1c of 8.6 and hyper fructose anemia. 10. Transaminitis. 11. Iron-deficiency anemia. 12. Hypertriglyceridemia. 13. Elevated C-reactive protein of greater than 15. 14. Lactic acidosis. 15. Status post packed red blood cell transfusions x2. 16. Left foot erosive changes. 17. Severe peripheral vascular disease of bilateral popliteal trifurcation and tibial disease with normal resting ankle-brachial indices. 18. Chronic osteomyelitis of the left foot with bony destruction and sclerosis around the first metatarsophalangeal joint and partial amputation of the second proximal phalanx. 19. Severe degenerative joint disease of the left midfoot. 20. Left axis deviation. 21. Acute kidney injury with underlying chronic kidney disease. 22. Metabolic acidosis. 23. Hypertensive diabetic chronic kidney disease stage 3 without proteinuria. 24. Monoclonal gammopathy of unknown significance. 25. Severe mitral, tricuspid regurgitation with cardiomyopathy, left ventricular ejection fraction of 35% to 40%. 26. Left foot diabetic foot ulceration and gangrene. 27. Congestive heart failure with reduced ejection fraction. 28. Nonhealing left foot diabetic ulceration. 29. Sepsis with left foot cellulitis and diabetic foot ulceration with Pseudomonas secondary to Pseudomonas aeruginosa and Streptococcus group B beta hemolytic Streptococcus. 30. Questionable and possible delirium versus encephalopathy. 31. Gait dysfunction. 32. Deconditioning. 33. Constipation. 34. Hypovitaminosis D. 35. Prostatic hypertrophy. 36. Hyperlipidemia. 37. Hyperuricemia. 38. Hyperglycemia. 39. Uncontrolled diabetes mellitus with hyperglycemia. 40. Gait dysfunction. 41. History of poor compliance and noncompliance. 1. Left foot Pseudomonas aeruginosa and group B beta hemolytic strep, left foot diabetic foot ulceration and cellulitis. 2. Sepsis secondary to Pseudomonas aeruginosa and group B beta hemolytic strep, left diabetic foot ulceration and cellulitis. 3. Hypertension. 4. Tachycardia. 5. Anemia. 6. Status post packed red blood cell transfusion one unit. 7. Leukocytosis with granulocytosis. 8. Elevated erythrocyte sedimentation rate of 122. 9. Iron-deficiency. 10. Acute kidney injury with underlying chronic kidney disease, stage IV. 11. Uncontrolled diabetes mellitus with hyperglycemia and elevated hemoglobin A1c of 8.6 and elevated fructose, a mean of 329. 12. Transient lactic acidosis. 13. Transaminitis. 14. Hypertriglyceridemia. 15. Elevated C-reactive protein of greater than 15. 16. Gait dysfunction. 17. Deconditioning. 18. Metabolic acidosis. 19. 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 20. Severe mitral, tricuspid regurgitation and systolic congestive heart failure. 21. Left foot cellulitis and left foot diabetic ulceration. 22. Left diabetic foot ulceration and possible gangrene or pre-gangrenous condition of the left foot toes. 23. Left foot second digit amputation. 24. Peripheral vascular disease. 25. Left foot second toe amputation with cyanosis and mummification of the toes and forefoot of the left foot. 26. Severe tibial disease of the lower extremity. 27. Peripheral vascular disease. 28. Anemia of chronic disease. 29. Bilateral popliteal trifurcation and tibial disease. 30. Left anterior hemiblock. 1. Left foot Pseudomonas aeruginosa and group B Streptococcus beta hemolytic left foot cellulitis and diabetic foot ulcer. 2. Severe peripheral vascular disease of the lower extremity. 3. Normocytic anemia with decreasing hemoglobin. 4. Leukocytosis with granulocytosis. 5. Uncontrolled diabetes mellitus with hyperglycemia. 6. Acute kidney injury with underlying chronic kidney disease stage III/IV. 7. Transaminitis. 8. Probably anemia of chronic kidney disease. 9. Acute kidney injury with underlying chronic kidney disease. 10. Metabolic acidosis. 11. Hypertensive diabetic chronic kidney disease. 12. [id number] mitral regurgitation and [id number] tricuspid regurgitation. 13. Dilated cardiomyopathy with ejection fraction of 35%. 14. Sepsis. 15. Hypertension. 16. Gait dysfunction. 17. Deconditioning. 18. Bilateral lower extremity peripheral vascular disease. 19. History of poor compliance and noncompliance. 20. History of hyperuricemia and gout. 1. Left foot cellulitis versus gangrene versus pregangrenous state. 2. Sepsis. 3. Tachycardia. 4. Transient episodic hypotension. 5. Leukocytosis with granulocytosis 6. Elevated erythrocyte sedimentation rate of 122. 7. Normocytic anemia. 8. Chronic kidney disease stage 4 with acute kidney injury. 9. Uncontrolled noninsulin-requiring diabetes mellitus with hyperglycemia and hemoglobin A1c of 8.6. 10. Possible iron-deficiency. 11. Hypertriglyceridemia. 12. Elevated C-reactive protein of greater than 15. 13. Transient lactic acidosis. 14. Transaminitis. 15. Deconditioning. 16. Gait dysfunction. 17. Anemia with decreasing hemoglobin and hematocrit. 18. Metabolic acidosis. 19. Diabetic hypertensive chronic kidney disease. 20. Chronic kidney disease stage 3 without proteinuria. 21. Severe mitral and tricuspid regurgitation. 22. Systolic congestive heart failure. 23. Dilated ischemic cardiomyopathy, etiology undetermined. 1. Left foot cellulitis with diabetic foot disease and possible abscess versus possible osteomyelitis. 2. History of left foot second toe amputation. 3. Hypertension. 4. Tachycardia. 5. Fever. 6. Poor compliance and noncompliance. 7. Leukocytosis with granulocytosis. 8. Normocytic anemia. 9. Elevated erythrocyte sedimentation rate of 122. 10. Chronic kidney disease, stage IV with acute kidney injury. 11. Transient lactic acidosis. 12. History of hyperuricemia. 13. Hypertriglyceridemia. 14. Aortic calcification. 15. Bilateral lower extremity popliteal trifurcation and tibial peripheral vascular disease. 16. Left foot first metatarsophalangeal joint bony destruction and sclerosis, chronic osteomyelitis. 17. 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 18. 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 19. Sinus tachycardia with left anterior hemiblock. 20. Deconditioning. 21. History of poor compliance. 22. Chronic dilated ischemic cardiomyopathy with ejection fraction of . 23. History of hypertension. 24. History of heart failure with reduced ejection fraction of 35%. 25. Pulmonary hypertension with right ventricular systolic pressure of 40 mmHg. 26. Left ventricular global hypokinesis and moderately impaired left ventricular systolic function. 27. Mild aortic regurgitation. 28. Moderate to severe mitral regurgitation. 29. Moderate tricuspid regurgitation. 30. History of constipation. 31. Hypovitaminosis D. 32. History of iron-deficiency anemia. 33. Prostatic hypertrophy. 34. Insulin-requiring diabetes mellitus. 35. Hyperlipidemia. 36. History of peripheral vascular disease. 37. Hyperuricemia. 1. Left foot diabetic foot ulceration versus left foot abscess versus left foot toe osteomyelitis. 2. Tachycardia. 3. Leukocytosis with granulocytosis. 4. Questionable systemic inflammatory response syndrome. 5. Uncontrolled diabetes mellitus with hyperglycemia. 6. Chronic kidney disease stage IV. 7. Mild transaminitis. 8. History of hypertension. 9. Hyperlipidemia. 10. History of prostatic hypertrophy. 11. History of iron-deficiency anemia. 12. History of hypovitaminosis D. 13. History of dilated cardiomyopathy. 14. History of pulmonary hypertension. 15. History of moderate tricuspid regurgitation and mitral regurgitation. 16. Hyperuricemia. PLAN: At this time, the patient has been seen by Vascular Surgery. The patient has been seen by Podiatry. The patient was seen by Infectious Disease. The patient has been seen by Cardiology. Their recommendations reviewed. Family updated and informed. Plan at this time, the patient is to be having repeat labs, consultation with Interventional Radiology, Podiatry, Cardiology, Vascular Surgery, Gastroenterology, Infectious Disease, Nephrology, family life educator, referral TCU evaluation ordered. The patient is on Aranesp 40 mcg weekly, Colace 100 mg three times a day, Drisdol 50,000 units weekly, Ecotrin 81 mg daily, aspirin 81 mg daily, ferrous sulfate 324 mg twice a day, Flomax 0.4 mg daily, heparin 5000 subcutaneous every 8 hours, Humalog medium dose sliding scale coverage a.c., insulin has been changed to NPH 20 units at breakfast and dinner secondary to persistent hyperglycemia. Lipitor 20 mg daily, Lopressor 25 mg every 8 hours, meropenem 500 mg IV every 12 hours, MiraLax 17 g twice a day, Nephro-Sumit 1 tablet daily, Pletal 50 mg twice a day, Protonix 40 mg daily, Tylenol p.o. suppository every 4 hours p.r.n., Zofran 4 mg IV every 4 hours p.r.n., allopurinol 100 mg daily. The patient has been ordered incentive spirometry, SCDs to the right leg and CLEM stocking to the right leg, head of the bed at 30 degrees, out of bed to chair, nonweightbearing to the left lower extremity, physical therapy and occupational therapy ordered. The patient refused physical therapy today. Dictated and electronically signed, not read. Niranjan Ling MD [facility]
[2018-11-23] MEDS: Pantoprazole 40 mg EC Tab PO SCH (06:41)
[2018-11-23 07:10] LABS: BASO # 0.03 K/mm3 (0.0-2.0); BASO % 0.2 % (0.0-3.0); EOS # 0.2 (0.0-0.7); EOS % 1.4 % (1.5-5.0); HEMOGLOBIN 10.6 g/dL (14.0-18.0); LYMPH # 1.4 (1.2-3.4); LYMPH % 8.4 % (22.0-35.0); MEAN CELL VOLUME 93.2 fl (80.0-105.0); MEAN CORPUSCULAR HEMOGLOBIN 31.5 pg (25.0-35.0); MEAN CORPUSCULAR HGB CONC 33.8 g/dl (31.0-37.0); MEAN PLATELET VOLUME 9.6 fl (7.0-11.0); MONO # 2.4 (0.1-0.6); RBC 3.37 10^6/uL (3.5-6.1); RED CELL DISTRIBUTION WIDTH 17.1 % (11.5-14.5); WHITE BLOOD COUNT 16.2 10^3/uL (4.5-11.0)
[2018-11-23 07:21] LABS: ALBUMIN 3.6 g/dL (3.0-4.8); BILIRUBIN,DIRECT 0.4 mg/dL (0.0-0.4)
[2018-11-23 07:51] LABS: INR 1.27; PROTHROMBIN TIME 14.4 SECONDS (9.4-12.5)
[2018-11-23] MEDS: Insulin Human NPH 1 UNITS/0.01 ML SC SCH ×2 (08:16→16:45)
[2018-11-23] MEDS: Multivitamin Vitamin B Complex (Nephro-Vite) Tab PO SCH (08:16)
[2018-11-23] MEDS: Insulin Lispro (humaLOG) MEDIUM Coverage SC SCH ×3 (08:16→16:45)
[2018-11-23] MEDS: MEROPENEM 500 MG in NS 500 MG/50 ML BAG IVPB SCH ×2 (09:06→21:37)
[2018-11-23] MEDS: Cilostazol 50 mg Tab UD PO SCH ×2 (09:07→17:09)
[2018-11-23] MEDS: POLYETHYLENE GLYCOL 3350 17 GM/Dose PACKET PO SCH ×2 (09:07→17:10)
--- NOTE | 2018-11-23 09:20 | CP.PCM.PCO ---
Physician Communication Note - Physician Communication Note Physician Communication Note: OR pending as per surgery
--- NOTE | 2018-11-23 09:42 | CP.PCM.PN ---
<Kirby Aquino - Last Filed: 11/23/18 16:40> Subjective - Date & Time of Evaluation Date of Evaluation: 11/23/18 Time of Evaluation: 07:15 - Subjective Subjective: General surgery progress note for Dr. Ian Aquino, PGY1 Patient seen and examined at bedside this morning. No acute events reported overnight. Patient admits to left foot pain and denies numbness, tingling, CP, SOB and fevers. Plan for OR debridement on . Objective - Vital Signs/Intake and Output Vital Signs (last 24 hours): Temp Pulse Resp BP Pulse Ox 99.1 F 111 H 20 101/63 96 11/23/18 06:00 11/23/18 06:41 11/23/18 06:00 11/23/18 06:41 11/23/18 06:00 Intake and Output: 11/23/18 11/23/18 06:59 18:59 Intake Total 700 Output Total 1200 Balance -500 - Medications Medications: Current Medications Acetaminophen (Tylenol 325mg Tab) 650 mg PO Q6H PRN PRN Reason: Pain, moderate (4-7) Last Admin: 11/20/18 18:36 Dose: 650 mg Acetaminophen (Tylenol 650 Mg Supp) 650 mg RC Q6H PRN PRN Reason: TEMP>=99.5F Acetaminophen (Tylenol 325mg Tab) 650 mg PO Q6 PRN PRN Reason: TEMP>=99.5F Last Admin: 11/23/18 00:35 Dose: 650 mg Acetaminophen (Tylenol 650 Mg Supp) 650 mg RC Q6H PRN PRN Reason: TEMP>=99.5F Allopurinol (Zyloprim) 100 mg PO DAILY [facility] Last Admin: 11/23/18 09:07 Dose: 100 mg Aspirin (Ecotrin) 81 mg PO 0800 [facility] Last Admin: 11/23/18 08:16 Dose: 81 mg Atorvastatin Calcium (Lipitor) 20 mg PO DIN [facility] Last Admin: 11/22/18 17:27 Dose: 20 mg Cilostazol (Pletal) 50 mg PO BID [facility] Last Admin: 11/23/18 09:07 Dose: 50 mg Darbepoetin Arturo (Aranesp) 40 mcg SC QWK [facility] Last Admin: 11/18/18 11:21 Dose: 40 mcg Dextrose (Dextrose 50% Inj) 0 ml IV STAT PRN; Protocol PRN Reason: Hypoglycemia Protocol Docusate Sodium (Colace) 100 mg PO TID [facility] Last Admin: 11/23/18 09:07 Dose: 100 mg Ergocalciferol (Drisdol 50,000 Intl Units Cap) 1 cap PO ONCE ONE Stop: 11/28/18 10:01 Ferrous Sulfate (Feosol) 324 mg PO BID [facility] Last Admin: 11/23/18 09:07 Dose: 324 mg Heparin Sodium (Porcine) (Heparin) 5,000 units SC Q8 [facility]; Protocol Last Admin: 11/23/18 06:41 Dose: 5,000 units Meropenem/Sodium Chloride (Merrem Iv 500 Mg/Ns 50 Ml) 500 mg in 50 mls @ 100 mls/hr IVPB Q12 [facility]; Protocol Last Admin: 11/23/18 09:06 Dose: 100 mls/hr Dextrose (Dextrose 5% In Water 1000 Ml) 1,000 mls @ 0 mls/hr IV .Q0M PRN; Protocol PRN Reason: Hypoglycemia Protocol Insulin Human Lispro (Humalog Med) 0 units SC AC [facility]; Protocol Last Admin: 11/23/18 08:16 Dose: 3 units Insulin Human NPH (Humulin N) 20 units SC ACBD [facility] Last Admin: 11/23/18 08:16 Dose: 20 units Metoprolol Tartrate (Lopressor) 25 mg PO Q8H [facility] Last Admin: 11/23/18 06:41 Dose: 25 mg Ondansetron HCl (Zofran Inj) 4 mg IVP Q4H PRN PRN Reason: Nausea/Vomiting Ondansetron HCl (Zofran Inj) 4 mg IVP Q4H PRN PRN Reason: Nausea/Vomiting Pantoprazole Sodium (Protonix Ec Tab) 40 mg PO 0600 [facility] Last Admin: 11/23/18 06:41 Dose: 40 mg Polyethylene Glycol (Miralax) 17 gm PO BID [facility] Last Admin: 11/23/18 09:07 Dose: 17 gm Tamsulosin HCl (Flomax) 0.4 mg PO 1830 [facility] Last Admin: 11/22/18 17:30 Dose: 0.4 mg Vitamin B Complex/Vit C/Folic Acid (Nephro-Sumit) 1 tab PO 0800 [facility] Last Admin: 11/23/18 08:16 Dose: 1 tab - Labs Labs: 11/23/18 06:45 11/23/18 06:45 PT 14.4 SECONDS (9.4-12.5) H 11/23/18 07:20 INR 1.27 11/23/18 07:20 APTT 28.3 Seconds (26.9-38.3) 11/16/18 12:40 - Constitutional Appears: Non-toxic, No Acute Distress - Head Exam Head Exam: ATRAUMATIC, NORMAL INSPECTION - Eye Exam Eye Exam: EOMI, Normal appearance - ENT Exam ENT Exam: Mucous Membranes Moist, Normal Exam - Neck Exam Neck exam: Positive for: Normal Inspection - Respiratory Exam Respiratory Exam: NORMAL BREATHING PATTERN, no respiratory distress - Cardiovascular Exam Cardiovascular Exam: No tachycardia, +S1, +S2 - GI/Abdominal Exam GI & Abdominal Exam: Soft. absent: Distended, Tenderness, rebound, guarding - Extremities Exam Extremities exam: DP non palpable B/L. Left foot with dressing and blood draining noted. Non healing left foot ulcer anterior surface - Neurological Exam Additional comments: Awake, Alert to person and place - Skin Skin Exam: Dry, Intact, Normal Color, Warm Assessment and Plan - Assessment and Plan (Free Text) Assessment: This is a 73 year old male with PMH significant for PAD, CKD and DM presenting to the hospital for chronic non healing left foot ulcer. Plan: -Plan for OR debrinedment on -NPO Thursday night -Will require medical/cardiology clearance for surgery -Further recommendations as per Dr. Sosa <Kain Sosa - Last Filed: 12/09/18 18:46> Objective - Vital Signs/Intake and Output Vital Signs (last 24 hours): Temp Pulse Resp BP Pulse Ox 98.4 F 94 H 20 97/62 L 100 12/09/18 13:44 12/09/18 13:44 12/09/18 13:44 12/09/18 13:44 12/09/18 13:44 Intake and Output: 12/09/18 12/09/18 06:59 18:59 Intake Total 480 Output Total 300 Balance 180 - Medications Medications: Current Medications Acetaminophen (Tylenol 325mg Tab) 650 mg PO Q6H PRN PRN Reason: Pain, Mild (1-3) Last Admin: 12/08/18 09:31 Dose: 650 mg Acetaminophen (Tylenol 325mg Tab) 650 mg PO Q6 PRN PRN Reason: Fever >100.4 F Dextrose (Dextrose 50% Inj) 0 ml IV STAT PRN; Protocol PRN Reason: Hypoglycemia Protocol Dextrose (Dextrose 50% Inj) 0 ml IV STAT PRN; Protocol PRN Reason: Hypoglycemia Protocol Docusate Sodium (Colace) 100 mg PO TID [facility] Last Admin: 12/09/18 18:14 Dose: 100 mg Famotidine (Pepcid) 20 mg PO 1000,2200 [facility] Stop: 12/11/18 10:01 Last Admin: 12/09/18 10:50 Dose: 20 mg Ferrous Gluconate (Fergon) 324 mg PO TID [facility] Last Admin: 12/09/18 18:14 Dose: 324 mg Heparin Sodium (Porcine) (Heparin) 5,000 units SC Q8 [facility]; Protocol Last Admin: 12/09/18 15:31 Dose: 5,000 units Dextrose (Dextrose 5% In Water 1000 Ml) 1,000 mls @ 0 mls/hr IV .Q0M PRN; Stephany col PRN Reason: Hypoglycemia Protocol Meropenem/Sodium Chloride (Merrem Iv 500 Mg/Ns 50 Ml) 500 mg in 50 mls @ 100 mls/hr IVPB Q12 [facility]; Protocol Last Admin: 12/09/18 10:51 Dose: 100 mls/hr Dextrose (Dextrose 5% In Water 1000 Ml) 1,000 mls @ 0 mls/hr IV .Q0M PRN; Protocol PRN Reason: Hypoglycemia Protocol Insulin Human Lispro (Humalog Med) 0 units SC AC [facility]; Protocol Last Admin: 12/09/18 17:00 Dose: 1 units Insulin Human NPH (Humulin N) 17 units SC ACBD [facility] Last Admin: 12/09/18 17:03 Dose: 17 unit Midodrine (Proamatine) 5 mg PO TID [facility] Last Admin: 12/09/18 18:14 Dose: 5 mg Nystatin (Nystop Topical Powder) 0 gm TOP BID [facility] Last Admin: 12/09/18 18:17 Dose: 1 appl Ondansetron HCl (Zofran Inj) 4 mg IVP Q4H PRN PRN Reason: Nausea/Vomiting Pantoprazole Sodium (Protonix Ec Tab) 40 mg PO 0600 [facility] Last Admin: 12/09/18 05:37 Dose: 40 mg Polyethylene Glycol (Miralax) 17 gm PO BID [facility] Last Admin: 12/09/18 18:16 Dose: Not Given Sodium Hypochlorite (Dakins Solution 0.25%) 20 ml TOP DAILY [facility] Last Admin: 12/09/18 10:47 Dose: 1 applic Tamsulosin HCl (Flomax) 0.4 mg PO DAILY [facility] Last Admin: 12/09/18 10:49 Dose: 0.4 mg Vitamin B Complex/Vit C/Folic Acid (Nephro-Sumit) 1 tab PO 0800 [facility] Last Admin: 12/09/18 08:17 Dose: 1 tab - Labs Labs: 12/09/18 07:30 12/09/18 07:30 PT 14.7 SECONDS (9.4-12.5) H 11/25/18 13:05 INR 1.30 11/25/18 13:05 APTT 26.3 Seconds (26.9-38.3) L 11/25/18 13:05 Assessment and Plan - Assessment and Plan (Free Text) Assessment: Patient was seen, evaluated and examined by me at the bedside. I agree with assessment and plan as stated in the resident's note.
[2018-11-23] MEDS ORDERED: Sodium Chloride 0.9% 1,000 ML IV SCH ×2 (10:15→15:15)
--- NOTE | 2018-11-23 11:12 | CP.PCM.PN ---
<Evans Waterman - Last Filed: 11/24/18 08:45> Subjective - Date & Time of Evaluation Date of Evaluation: 11/23/18 Time of Evaluation: 07:10 - Subjective Subjective: Evans Waterman PGY2 IM Progress Note for Dr. Ling Patient was seen and examined at bedside. He is more alert this morning and is oriented x3, but seems to be having periods of confusion. He states he is not in any pain, and denies any fevers/chills. Discussed with surgery team regarding no plans for BKA or TMA; patient is planned for OR debridement on . I discussed the plan with Mr. Edgar (patient's son) and answered all questions. Objective - Vital Signs/Intake and Output Vital Signs (last 24 hours): Temp Pulse Resp BP Pulse Ox 99.1 F 111 H 20 101/63 96 11/23/18 06:00 11/23/18 06:41 11/23/18 06:00 11/23/18 06:41 11/23/18 06:00 Intake and Output: 11/23/18 11/23/18 06:59 18:59 Intake Total 700 Output Total 1200 Balance -500 - Medications Medications: Current Medications Acetaminophen (Tylenol 325mg Tab) 650 mg PO Q6H PRN PRN Reason: Pain, moderate (4-7) Last Admin: 11/20/18 18:36 Dose: 650 mg Acetaminophen (Tylenol 650 Mg Supp) 650 mg RC Q6H PRN PRN Reason: TEMP>=99.5F Acetaminophen (Tylenol 325mg Tab) 650 mg PO Q6 PRN PRN Reason: TEMP>=99.5F Last Admin: 11/23/18 00:35 Dose: 650 mg Acetaminophen (Tylenol 650 Mg Supp) 650 mg RC Q6H PRN PRN Reason: TEMP>=99.5F Allopurinol (Zyloprim) 100 mg PO DAILY [facility] Last Admin: 11/23/18 09:07 Dose: 100 mg Aspirin (Ecotrin) 81 mg PO 0800 [facility] Last Admin: 11/23/18 08:16 Dose: 81 mg Atorvastatin Calcium (Lipitor) 20 mg PO DIN [facility] Last Admin: 11/22/18 17:27 Dose: 20 mg Cilostazol (Pletal) 50 mg PO BID [facility] Last Admin: 11/23/18 09:07 Dose: 50 mg Darbepoetin Arturo (Aranesp) 40 mcg SC QWK [facility] Last Admin: 11/18/18 11:21 Dose: 40 mcg Dextrose (Dextrose 50% Inj) 0 ml IV STAT PRN; Protocol PRN Reason: Hypoglycemia Protocol Docusate Sodium (Colace) 100 mg PO TID [facility] Last Admin: 11/23/18 09:07 Dose: 100 mg Ergocalciferol (Drisdol 50,000 Intl Units Cap) 1 cap PO ONCE ONE Stop: 11/28/18 10:01 Ferrous Sulfate (Feosol) 324 mg PO BID [facility] Last Admin: 11/23/18 09:07 Dose: 324 mg Heparin Sodium (Porcine) (Heparin) 5,000 units SC Q8 [facility]; Protocol Last Admin: 11/23/18 06:41 Dose: 5,000 units Meropenem/Sodium Chloride (Merrem Iv 500 Mg/Ns 50 Ml) 500 mg in 50 mls @ 100 mls/hr IVPB Q12 [facility]; Protocol Last Admin: 11/23/18 09:06 Dose: 100 mls/hr Dextrose (Dextrose 5% In Water 1000 Ml) 1,000 mls @ 0 mls/hr IV .Q0M PRN; Protocol PRN Reason: Hypoglycemia Protocol Sodium Chloride (Sodium Chloride 0.9%) 1,000 mls @ 60 mls/hr IV .[id number] [facility] Stop: 11/25/18 10:16 Last Admin: 11/23/18 10:16 Dose: 60 mls/hr Insulin Human Lispro (Humalog Med) 0 units SC AC [facility]; Protocol Last Admin: 11/23/18 08:16 Dose: 3 units Insulin Human NPH (Humulin N) 20 units SC ACBD [facility] Last Admin: 11/23/18 08:16 Dose: 20 units Metoprolol Tartrate (Lopressor) 25 mg PO Q8H [facility] Last Admin: 11/23/18 06:41 Dose: 25 mg Ondansetron HCl (Zofran Inj) 4 mg IVP Q4H PRN PRN Reason: Nausea/Vomiting Ondansetron HCl (Zofran Inj) 4 mg IVP Q4H PRN PRN Reason: Nausea/Vomiting Pantoprazole Sodium (Protonix Ec Tab) 40 mg PO 0600 [facility] Last Admin: 11/23/18 06:41 Dose: 40 mg Polyethylene Glycol (Miralax) 17 gm PO BID [facility] Last Admin: 11/23/18 09:07 Dose: 17 gm Tamsulosin HCl (Flomax) 0.4 mg PO 1830 [facility] Last Admin: 11/22/18 17:30 Dose: 0.4 mg Vitamin B Complex/Vit C/Folic Acid (Nephro-Sumit) 1 tab PO 0800 [facility] Last Admin: 11/23/18 08:16 Dose: 1 tab - Labs Labs: 11/23/18 06:45 11/23/18 06:45 PT 14.4 SECONDS (9.4-12.5) H 11/23/18 07:20 INR 1.27 11/23/18 07:20 APTT 28.3 Seconds (26.9-38.3) 11/16/18 12:40 - Constitutional Appears: Well, Non-toxic, No Acute Distress - Head Exam Head Exam: ATRAUMATIC, NORMAL INSPECTION - Eye Exam Eye Exam: Normal appearance, PERRL - ENT Exam ENT Exam: Mucous Membranes Moist, Normal Exam - Neck Exam Neck Exam: Full ROM, Normal Inspection - Respiratory Exam Respiratory Exam: NORMAL BREATHING PATTERN. absent: Respiratory Distress - Cardiovascular Exam Cardiovascular Exam: Tachycardia, +S1, +S2 - GI/Abdominal Exam GI & Abdominal Exam: Soft. absent: Distended, Tenderness - Extremities Exam Extremities Exam: absent: Normal Inspection Additional comments: poor right peripheral pulses absent LLE DP/PT pulses gangrenous looking left foot - Neurological Exam Neurological Exam: Awake. absent: Oriented x3 - Skin Skin Exam: Normal Color, Warm Additional comments: foot changes as above Assessment and Plan - Assessment and Plan (Free Text) Assessment: 73 year old male with a PMH of PAD s/p 2nd left toe amputation (09/2017), DM2, CHFrEF, gout and arthritis who presented for left foot pain x2 months, but recently worsening. Patient found to have severe PAD, cellulitis of left foot due to pseudomonas w/ gangrenous changes. MRI showed no osteomyelitis changes. IR recommended against angioplasty due to low chance of successful intervention. Podiatry following with daily foot care. Plan for OR debridement w/ surgical team on . Cardiology, GI and Nephrology are following for pre-op optimization. Plan: - Surgery team following, plan for OR debridement - Podiatry team following with foot care - ID team consulted, recs appreciated - cont Abx per ID recs, on Meropenem - restart home meds - cont cilostazol - cont ISS and accuchecks ACHS - tylenol PRN fevers - Heparin for DVT ppx - PPI for GI ppx - consistent carb diet - further recs per Dr. Ling Case was reviewed with Dr. Ling <AnuradhaNiranjan U - Last Filed: 12/13/18 14:28> Objective - Vital Signs/Intake and Output Vital Signs (last 24 hours): Temp Pulse Resp BP Pulse Ox 98.3 F 94 H 17 93/57 L 99 12/12/18 14:00 12/12/18 14:00 12/12/18 14:00 12/12/18 14:00 12/12/18 14:00 - Medications Medications: Current Medications Acetaminophen (Tylenol 325mg Tab) 650 mg PO Q6 PRN PRN Reason: TEMP>=99.5F Last Admin: 12/12/18 22:42 Dose: 650 mg Acetaminophen (Tylenol 650 Mg Supp) 650 mg RC Q6H PRN PRN Reason: TEMP>=99.5F Dextrose (Dextrose 50% Inj) 0 ml IV STAT PRN; Protocol PRN Reason: Hypoglycemia Protocol Docusate Sodium (Colace) 100 mg PO TID [facility] Last Admin: 12/13/18 10:27 Dose: 100 mg Ferrous Gluconate (Fergon) 324 mg PO TID [facility] Last Admin: 12/13/18 10:28 Dose: 324 mg Heparin Sodium (Porcine) (Heparin) 5,000 units SC Q8 [facility]; Protocol Last Admin: 12/13/18 05:03 Dose: 5,000 units Dextrose (Dextrose 5% In Water 1000 Ml) 1,000 mls @ 0 mls/hr IV .Q0M PRN; Stephany col PRN Reason: Hypoglycemia Protocol Insulin Human Lispro (Humalog Med) 0 units SC AC [facility]; Protocol Last Admin: 12/13/18 12:48 Dose: 5 units Insulin Human NPH (Humulin N) 17 units SC [facility] Last Admin: 12/13/18 10:28 Dose: 17 unit Metoclopramide HCl (Reglan) 10 mg IV ONCE PRN PRN Reason: Nausea/Vomiting Midodrine (Proamatine) 10 mg PO TID [facility] Last Admin: 05/20/19 10:28 Dose: 10 mg Nystatin (Nystop Topical Powder) 0 gm TOP BID [facility] Last Admin: 12/13/18 10:31 Dose: 1 appl Ondansetron HCl (Zofran Inj) 4 mg IVP Q4H PRN PRN Reason: Nausea/Vomiting Pantoprazole Sodium (Protonix Ec Tab) 40 mg PO 0600 [facility] Last Admin: 12/13/18 05:03 Dose: 40 mg Polyethylene Glycol (Miralax) 17 gm PO BID [facility] Last Admin: 12/13/18 10:28 Dose: 17 gm Tamsulosin HCl (Flomax) 0.4 mg PO DAILY [facility] Last Admin: 12/13/18 10:28 Dose: 0.4 mg Vitamin B Complex/Vit C/Folic Acid (Nephro-Sumit) 1 tab PO 0800 [facility] Last Admin: 12/13/18 10:28 Dose: 1 tab - Labs Labs: 12/13/18 07:00 12/13/18 07:00 PT 12.6 SECONDS (9.4-12.5) H 12/10/18 13:10 INR 1.12 12/10/18 13:10 APTT 30.3 Seconds (26.9-38.3) 12/10/18 13:10 Attending/Attestation - Attestation I have personally seen and examined this patient.: Yes I have fully participated in the care of the patient.: Yes I have reviewed all pertinent clinical information, including history, physical exam and plan: Yes Notes (Text): Please see/read my dictated notes.
--- NOTE | 2018-11-23 12:09 | CP.PCM.PN ---
Subjective - Date & Time of Evaluation Date of Evaluation: 11/23/18 Time of Evaluation: 12:08 - Subjective Subjective: Nephrology Consultation Note: Assessment: Stable Acute Kidney Injury (N17.9) likely due to sepsis with cellulitis: Improved with IVF metabolic acidosis Diabetic chronic Kidney Disease (E11.22) Hypertensive Chronic Kidney Disease (I12.9) Chronic Kidney Disease (N18.3) Stage 3 without proteinuria (R80.9) likely due to HTN/vasc disease Anemia (D64.9), DM, gout PVD severe MR/TR with sys CHF LVEF 35-40% MGUS Plan No acute need for renal replacement therapy at this time. Hypertension control with meds as ordered. Maintain hemodynamics stable. Avoid hypotension. Patient not on ACEI/ARB due to EMIL and hyperkalemia tendency. consider to add once stable. Monitor Input/Output, daily weights and renal function with basic metabolic panel continue with iron and MVI. PRBC as needed. dose of aransep 40 mcg 11/17/18. K/L ratio remains high at 3.6. suggest hematology eval vit d can be changed to once a month as last level 41 continue with flomax NS @ 60 ml/hr restarted as febrile and BP on low side. if pt need angiogram, he will be at increased risk of contrast nephropathy. suggest IVF pre-procedure NS @ 100 ml/hr to reduce the risk of EMIL. Pt for possible left BKA Dose meds/antibiotics for reduced GFR. Avoid fleets enema/magnesium based laxatives. Avoid nephrotoxins/NSAIDs/ iodinated contrast (unless needed emergently) Glycemic control Further work up/management as per primary team Thanks for allowing me to participate in care of your patient. Will follow patient with you. Please call if any Qs. had d/w team and son Dr Anjum Padron Office: [phone] Chief Complaint; Foot ulcer Reason for consult: Acute Kidney Injury HPI: Pt is a 73 M with hx of diabetes Mellitus (30 years), hypertension (years) PVD, Gout CKD 3 with baseline cr 1.8-1.9 presented with complaints of foot ulcer, being managed for cellulitis. seen for EMIL and pt also with PVD Denies OTC/herbal meds or NSAIDs. No recent iodinated contrast exposure. Noted obvious episodes of low BP. pt still not aware about kidney disease in past ROS: noted overnight events Cardiovascular: No chest pain. Pulmonary: No shortness of breath Gastrointestinal: denies abdominal pain No nausea. No vomiting. Genitourinary: No pain while urinating. Denies blood in urine. sometimes feels hesitancy. All other negative except as mentioned in HPI. per son, pt refused to go for outpt follow ups Physical Examination: General Appearance: Comfortable, in no acute respiratory distress, co-operative . Vitals reviewed and noted as below Head; Atraumatic, normocephalic ENT: no ulcers no thrush. Tongue is midline. Oropharynx: no rash or ulcers. EYES: Pupils are equal, round and reactive to light accommodation. Eye muscles and extra-ocular movement intact. Sclera is anicteric. Neck; supple no lymphadenopathy, no thyromegaly or bruit Lungs: Normal respiratory rate/effort. Breath sounds bilateral equal and clear Heart: Normal rate. s1s2 normal. No rub or gallop. Extremities: no edema. No varicose veins. left foot in dressing Neurological: Patient is alert, awake and oriented to person, place and time. No focal deficit. Strength bilateral appropriate and equal Skin: Warm and dry. Normal turgor. No rash. Palpitation: Normal elasticity for age Abdomen: Abdomen is soft. Bowel sounds +. There is no abdominal tenderness, no guarding/rigidity no organomegaly Psych: lack insight and normal affect/mood MSK: no joint tenderness or swelling. Digits and nails normal, no deformity : kidney or bladder not palpable. Labs/imaging reviewed. Past medical history, past surgical history, family history, social history, allergy reviewed and noted as below Family hx: no hx of CKD. Rest non-contributory Phos 3.5 TSAT 13% Vit D 41 PTH 49 LDL 103 kappa/lambda 3.4 uric acid 7.5 renal cyst left side Objective - Vital Signs/Intake and Output Vital Signs (last 24 hours): Temp Pulse Resp BP Pulse Ox 99.1 F 111 H 20 101/63 96 11/23/18 06:00 11/23/18 06:41 11/23/18 06:00 11/23/18 06:41 11/23/18 06:00 Intake and Output: 11/23/18 11/23/18 06:59 18:59 Intake Total 700 Output Total 1200 Balance -500 - Medications Medications: Current Medications Acetaminophen (Tylenol 325mg Tab) 650 mg PO Q6H PRN PRN Reason: Pain, moderate (4-7) Last Admin: 11/20/18 18:36 Dose: 650 mg Acetaminophen (Tylenol 650 Mg Supp) 650 mg RC Q6H PRN PRN Reason: TEMP>=99.5F Acetaminophen (Tylenol 325mg Tab) 650 mg PO Q6 PRN PRN Reason: TEMP>=99.5F Last Admin: 11/23/18 00:35 Dose: 650 mg Acetaminophen (Tylenol 650 Mg Supp) 650 mg RC Q6H PRN PRN Reason: TEMP>=99.5F Allopurinol (Zyloprim) 100 mg PO DAILY [facility] Last Admin: 11/23/18 09:07 Dose: 100 mg Aspirin (Ecotrin) 81 mg PO 0800 [facility] Last Admin: 11/23/18 08:16 Dose: 81 mg Atorvastatin Calcium (Lipitor) 20 mg PO DIN [facility] Last Admin: 11/22/18 17:27 Dose: 20 mg Cilostazol (Pletal) 50 mg PO BID [facility] Last Admin: 11/23/18 09:07 Dose: 50 mg Darbepoetin Arturo (Aranesp) 40 mcg SC QWK [facility] Last Admin: 11/18/18 11:21 Dose: 40 mcg Dextrose (Dextrose 50% Inj) 0 ml IV STAT PRN; Protocol PRN Reason: Hypoglycemia Protocol Docusate Sodium (Colace) 100 mg PO TID [facility] Last Admin: 11/23/18 09:07 Dose: 100 mg Ergocalciferol (Drisdol 50,000 Intl Units Cap) 1 cap PO ONCE [facility] Stop: 11/28/18 10:01 Ferrous Sulfate (Feosol) 324 mg PO BID [facility] Last Admin: 11/23/18 09:07 Dose: 324 mg Heparin Sodium (Porcine) (Heparin) 5,000 units SC Q8 [facility]; Protocol Last Admin: 11/23/18 06:41 Dose: 5,000 units Meropenem/Sodium Chloride (Merrem Iv 500 Mg/Ns 50 Ml) 500 mg in 50 mls @ 100 mls/hr IVPB Q12 [facility]; Protocol Last Admin: 11/23/18 09:06 Dose: 100 mls/hr Dextrose (Dextrose 5% In Water 1000 Ml) 1,000 mls @ 0 mls/hr IV .Q0M PRN; Protocol PRN Reason: Hypoglycemia Protocol Sodium Chloride (Sodium Chloride 0.9%) 1,000 mls @ 60 mls/hr IV .[id number] [facility] Stop: 11/25/18 10:16 Last Admin: 11/23/18 10:16 Dose: 60 mls/hr Insulin Human Lispro (Humalog Med) 0 units SC [facility]; Protocol Last Admin: 11/23/18 08:16 Dose: 3 units Insulin Human NPH (Humulin N) 20 units SC ACBD [facility] Last Admin: 11/23/18 08:16 Dose: 20 units Metoprolol Tartrate (Lopressor) 25 mg PO Q8H [facility] Last Admin: 11/23/18 06:41 Dose: 25 mg Ondansetron HCl (Zofran Inj) 4 mg IVP Q4H PRN PRN Reason: Nausea/Vomiting Ondansetron HCl (Zofran Inj) 4 mg IVP Q4H PRN PRN Reason: Nausea/Vomiting Pantoprazole Sodium (Protonix Ec Tab) 40 mg PO 0600 [facility] Last Admin: 11/23/18 06:41 Dose: 40 mg Polyethylene Glycol (Miralax) 17 gm PO BID [facility] Last Admin: 11/23/18 09:07 Dose: 17 gm Tamsulosin HCl (Flomax) 0.4 mg PO 1830 [facility] Last Admin: 11/22/18 17:30 Dose: 0.4 mg Vitamin B Complex/Vit C/Folic Acid (Nephro-Sumit) 1 tab PO 0800 [facility] Last Admin: 11/23/18 08:16 Dose: 1 tab - Labs Labs: 11/23/18 06:45 11/23/18 06:45 PT 14.4 SECONDS (9.4-12.5) H 11/23/18 07:20 INR 1.27 11/23/18 07:20 APTT 28.3 Seconds (26.9-38.3) 11/16/18 12:40
[2018-11-23] MEDS ORDERED: Sodium Chloride 0.9% 250 ML IV SCH (14:00)
[2018-11-23] MEDS ORDERED: Sodium Chloride 0.9% 250 ML IV ONE (14:14)
--- NOTE | 2018-11-23 15:18 | CT ---
Date of service: 11/23/2018 PROCEDURE: CT Chest, Abdomen and Pelvis without intravenous contrast HISTORY: FEVER/LEUCOCYTOSIS COMPARISON: None available. TECHNIQUE: Radiation dose: Total exam DLP = 562.18 mGy-cm. This CT exam was performed using one or more of the following dose reduction techniques: Automated exposure control, adjustment of the mA and/or kV according to patient size, and/or use of iterative reconstruction technique. FINDINGS: CT CHEST WITHOUT CONTRAST: LUNGS: Clear. No nodule, mass or consolidation. MEDIASTINUM: Unremarkable. Normal caliber aorta and pulmonary arterial trunk. Normal size heart. Aortic and coronary artery calcification LYMPH NODES: Unremarkable. PLEURA: Unremarkable. No pneumothorax. No pleural fluid. BONES: Unremarkable. OTHER FINDINGS: None. CT ABDOMEN AND PELVIS: LIVER: Unremarkable. No gross lesion or ductal dilatation. GALLBLADDER AND BILE DUCTS: Unremarkable. PANCREAS: Unremarkable. No gross lesion or ductal dilatation. SPLEEN: Unremarkable. ADRENALS: Unremarkable. No mass. KIDNEYS AND URETERS: Unremarkable. No hydronephrosis. No solid mass. VASCULATURE: Aortic calcification Unremarkable. No aortic aneurysm. BOWEL: Unremarkable. No obstruction. No gross mural thickening. APPENDIX: Normal appendix. PERITONEUM: Unremarkable. No free fluid. No free air. LYMPH NODES: Unremarkable. No enlarged lymph nodes. BLADDER: Unremarkable. REPRODUCTIVE: Unremarkable. BONES: No acute fracture. OTHER FINDINGS: None. IMPRESSION: No acute intrathoracic or intra-abdominal findings
--- NOTE | 2018-11-23 18:13 | PN ---
DATE: 11/23/2018 SUBJECTIVE: The patient is in room 575, bed 2. Overnight nurse's notes were reviewed. PHYSICAL EXAMINATION VITAL SIGNS: The patient's T-max is 100.1, heart rate 105-111, blood pressure 101/63, respirations 20, O2 sat 96%. HEENT AND NECK: Head: Normocephalic, atraumatic. HEENT examination shows pinkish pale conjunctivae. Anicteric sclerae. No oropharyngeal lesion. No neck rigidity. CHEST: Kyphosis. LUNGS: Show no audible crackles, rales or wheezing. CARDIOVASCULAR: S1, S2, regular rhythm. Positive systolic murmur left sternal border, right second intercostal space, left second intercostal space. ABDOMEN: Soft, positive bowel sounds. No palpable hepatosplenomegaly. GENITALIA: Male. RECTAL: Deferred. EXTREMITIES: No pitting edema, no calf tenderness, no Homans' sign. Positive gangrenous discoloration and black discoloration of the left foot toe and the second, third and fourth toes and forefoot. Gait examination is not tested. NEUROLOGIC: The patient is alert, awake, responsive, is able to move upper and lower extremities without assistance. PSYCHIATRIC: Negative for anxiety, depression. Negative for suicidal, homicidal ideation. Negative for auditory, visual hallucination. DIAGNOSTICS: 11/23/2018; WBC is still elevated at 16.2, hemoglobin and hematocrit 10.6 and 31.4, platelets granulocytes 75% segs. Sodium 137, potassium 3.9, chloride 99, CO2 of 26, BUN 35, creatinine 2.0, glucose 223, calcium 9.0, phosphorus 3.3, magnesium 2.0. LFTs are within normal limits. IMPRESSION 1. Left foot diabetic ulceration and nonhealing diabetic ulceration with possible diabetic gangrene of the left foot and great toe and the left foot toes with group B Streptococcus and Pseudomonas aeruginosa, cellulitis and diabetic foot gangrene of the left foot. 2. Uncontrolled diabetes mellitus with elevated hemoglobin A1c. 3. Fever. 4. Questionable sepsis. 5. Tachycardia. 6. Possible sepsis versus systemic inflammatory response syndrome. 7. Fever. 8. Transient hypotension. 9. Dilated cardiomyopathy. 10. Persistent refractory leukocytosis. 11. Normocytic anemia status post packed red blood cell transfusion. 12. Granulocytosis. 13. Acute kidney injury with underlying chronic kidney disease, stage IV. 14. Uncontrolled diabetes mellitus with hyperglycemia and an elevated hemoglobin A1c and hyperfructosemia. 15. History of poor compliance and noncompliance. 16. History of hyperuricemia and gout. 17. Severe peripheral vascular disease. 18. History of severe peripheral vascular disease of the lower extremity. 19. Severe mitral and tricuspid regurgitation. 20. Cardiomyopathy with ejection fraction of around 35%. 21. History of poor compliance. 22. History of chronic osteomyelitis of the left foot and partial amputation of the left foot second toe. 1. Fever. 2. Sinus tachycardia. 3. Pseudomonas nose group. Group B streptococcus group B beta hemolytic left foot diabetic foot ulcerations and cellulitis and gangrene. 4. Severe peripheral vascular disease. 5. Persistent refractory leukocytosis with granulocytosis. 6. Anemia with decreasing hemoglobin/hematocrit. 7. Elevated erythrocyte sedimentation rate of 122. 8. Chronic kidney disease, stage 3. 9. Hyperglycemia secondary to uncontrolled diabetes mellitus with hemoglobin A1c of 8.6 and hyper fructose anemia. 10. Transaminitis. 11. Iron-deficiency anemia. 12. Hypertriglyceridemia. 13. Elevated C-reactive protein of greater than 15. 14. Lactic acidosis. 15. Status post packed red blood cell transfusions x2. 16. Left foot erosive changes. 17. Severe peripheral vascular disease of bilateral popliteal trifurcation and tibial disease with normal resting ankle-brachial indices. 18. Chronic osteomyelitis of the left foot with bony destruction and sclerosis around the first metatarsophalangeal joint and partial amputation of the second proximal phalanx. 19. Severe degenerative joint disease of the left midfoot. 20. Left axis deviation. 21. Acute kidney injury with underlying chronic kidney disease. 22. Metabolic acidosis. 23. Hypertensive diabetic chronic kidney disease stage 3 without proteinuria. 24. Monoclonal gammopathy of unknown significance. 25. Severe mitral, tricuspid regurgitation with cardiomyopathy, left ventricular ejection fraction of 35% to 40%. 26. Left foot diabetic foot ulceration and gangrene. 27. Congestive heart failure with reduced ejection fraction. 28. Nonhealing left foot diabetic ulceration. 29. Sepsis with left foot cellulitis and diabetic foot ulceration with Pseudomonas secondary to Pseudomonas aeruginosa and Streptococcus group B beta hemolytic Streptococcus. 30. Questionable and possible delirium versus encephalopathy. 31. Gait dysfunction. 32. Deconditioning. 33. Constipation. 34. Hypovitaminosis D. 35. Prostatic hypertrophy. 36. Hyperlipidemia. 37. Hyperuricemia. 38. Hyperglycemia. 39. Uncontrolled diabetes mellitus with hyperglycemia. 40. Gait dysfunction. 41. History of poor compliance and noncompliance. 1. Left foot Pseudomonas aeruginosa and group B beta hemolytic strep, left foot diabetic foot ulceration and cellulitis. 2. Sepsis secondary to Pseudomonas aeruginosa and group B beta hemolytic strep, left diabetic foot ulceration and cellulitis. 3. Hypertension. 4. Tachycardia. 5. Anemia. 6. Status post packed red blood cell transfusion one unit. 7. Leukocytosis with granulocytosis. 8. Elevated erythrocyte sedimentation rate of 122. 9. Iron-deficiency. 10. Acute kidney injury with underlying chronic kidney disease, stage IV. 11. Uncontrolled diabetes mellitus with hyperglycemia and elevated hemoglobin A1c of 8.6 and elevated fructose, a mean of 329. 12. Transient lactic acidosis. 13. Transaminitis. 14. Hypertriglyceridemia. 15. Elevated C-reactive protein of greater than 15. 16. Gait dysfunction. 17. Deconditioning. 18. Metabolic acidosis. 19. 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 20. Severe mitral, tricuspid regurgitation and systolic congestive heart failure. 21. Left foot cellulitis and left foot diabetic ulceration. 22. Left diabetic foot ulceration and possible gangrene or pre-gangrenous condition of the left foot toes. 23. Left foot second digit amputation. 24. Peripheral vascular disease. 25. Left foot second toe amputation with cyanosis and mummification of the toes and forefoot of the left foot. 26. Severe tibial disease of the lower extremity. 27. Peripheral vascular disease. 28. Anemia of chronic disease. 29. Bilateral popliteal trifurcation and tibial disease. 30. Left anterior hemiblock. 1. Left foot Pseudomonas aeruginosa and group B Streptococcus beta hemolytic left foot cellulitis and diabetic foot ulcer. 2. Severe peripheral vascular disease of the lower extremity. 3. Normocytic anemia with decreasing hemoglobin. 4. Leukocytosis with granulocytosis. 5. Uncontrolled diabetes mellitus with hyperglycemia. 6. Acute kidney injury with underlying chronic kidney disease stage III/IV. 7. Transaminitis. 8. Probably anemia of chronic kidney disease. 9. Acute kidney injury with underlying chronic kidney disease. 10. Metabolic acidosis. 11. Hypertensive diabetic chronic kidney disease. 12. [id number] mitral regurgitation and [id number] tricuspid regurgitation. 13. Dilated cardiomyopathy with ejection fraction of 35%. 14. Sepsis. 15. Hypertension. 16. Gait dysfunction. 17. Deconditioning. 18. Bilateral lower extremity peripheral vascular disease. 19. History of poor compliance and noncompliance. 20. History of hyperuricemia and gout. 1. Left foot cellulitis versus gangrene versus pregangrenous state. 2. Sepsis. 3. Tachycardia. 4. Transient episodic hypotension. 5. Leukocytosis with granulocytosis 6. Elevated erythrocyte sedimentation rate of 122. 7. Normocytic anemia. 8. Chronic kidney disease stage 4 with acute kidney injury. 9. Uncontrolled noninsulin-requiring diabetes mellitus with hyperglycemia and hemoglobin A1c of 8.6. 10. Possible iron-deficiency. 11. Hypertriglyceridemia. 12. Elevated C-reactive protein of greater than 15. 13. Transient lactic acidosis. 14. Transaminitis. 15. Deconditioning. 16. Gait dysfunction. 17. Anemia with decreasing hemoglobin and hematocrit. 18. Metabolic acidosis. 19. Diabetic hypertensive chronic kidney disease. 20. Chronic kidney disease stage 3 without proteinuria. 21. Severe mitral and tricuspid regurgitation. 22. Systolic congestive heart failure. 23. Dilated ischemic cardiomyopathy, etiology undetermined. 1. Left foot cellulitis with diabetic foot disease and possible abscess versus possible osteomyelitis. 2. History of left foot second toe amputation. 3. Hypertension. 4. Tachycardia. 5. Fever. 6. Poor compliance and noncompliance. 7. Leukocytosis with granulocytosis. 8. Normocytic anemia. 9. Elevated erythrocyte sedimentation rate of 122. 10. Chronic kidney disease, stage IV with acute kidney injury. 11. Transient lactic acidosis. 12. History of hyperuricemia. 13. Hypertriglyceridemia. 14. Aortic calcification. 15. Bilateral lower extremity popliteal trifurcation and tibial peripheral vascular disease. 16. Left foot first metatarsophalangeal joint bony destruction and sclerosis, chronic osteomyelitis. 17. 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 18. 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 19. Sinus tachycardia with left anterior hemiblock. 20. Deconditioning. 21. History of poor compliance. 22. Chronic dilated ischemic cardiomyopathy with ejection fraction of . 23. History of hypertension. 24. History of heart failure with reduced ejection fraction of 35%. 25. Pulmonary hypertension with right ventricular systolic pressure of 40 mmHg. 26. Left ventricular global hypokinesis and moderately impaired left ventricular systolic function. 27. Mild aortic regurgitation. 28. Moderate to severe mitral regurgitation. 29. Moderate tricuspid regurgitation. 30. History of constipation. 31. Hypovitaminosis D. 32. History of iron-deficiency anemia. 33. Prostatic hypertrophy. 34. Insulin-requiring diabetes mellitus. 35. Hyperlipidemia. 36. History of peripheral vascular disease. 37. Hyperuricemia. 1. Left foot diabetic foot ulceration versus left foot abscess versus left foot toe osteomyelitis. 2. Tachycardia. 3. Leukocytosis with granulocytosis. 4. Questionable systemic inflammatory response syndrome. 5. Uncontrolled diabetes mellitus with hyperglycemia. 6. Chronic kidney disease stage IV. 7. Mild transaminitis. 8. History of hypertension. 9. Hyperlipidemia. 10. History of prostatic hypertrophy. 11. History of iron-deficiency anemia. 12. History of hypovitaminosis D. 13. History of dilated cardiomyopathy. 14. History of pulmonary hypertension. 15. History of moderate tricuspid regurgitation and mitral regurgitation. 16. Hyperuricemia. PLAN: At this time, we are awaiting further surgical intervention and recommendation by Vascular Surgery. In the interim, the patient will be continued on IV antibiotics as per Infectious Disease. Present consults are with Interventional Radiology, Podiatry and Vascular Surgery and Cardiology and Nephrology. The patient will be continued on all the medications as per the MAR of today, which was reviewed. The patient will be continued on both GI DVT prophylaxis. The patient has been ordered antipyretic for fever. The patient is to continue on beta-blockers. The patient is to continue on IV antibiotics as per Infectious Disease recommendation. As mentioned, we are awaiting further intervention, recommendations by Vascular Surgery. The patient was seen by Cardiology and due to the patient's underlying multiple comorbidities and medical condition and advanced peripheral vascular disease and unknown etiology of the patient's cardiomyopathy, the patient is to be considered at least moderate to high risk for surgical intervention, which has been explained to the patient and the patient's daughter and son at length, and all questions concerned answered. At present, the patient will be continued on the above therapeutic intervention. The patient's further management will be dependent upon the patient's clinical condition, hemodynamic status, and as per the patient's response to therapeutic intervention and as per recommendation by Vascular Surgery, Podiatry, Cardiology, Nephrology, Interventional Radiology. Dictated and electronically signed, not read. Niranjan MD [facility] # [id number] KESHAWN
[2018-11-23 22:14] LABS: URINE BILIRUBIN NEGATIVE (NEGATIVE); URINE BLOOD LARGE (NEGATIVE); URINE GLUCOSE (UA) NEGATIVE (NEGATIVE); URINE LEUKOCYTE ESTERASE NEGATIVE Leu/uL (NEGATIVE); URINE PROTEIN 30 mg/dL (<30 mg/dL); URINE UROBILINOGEN 0.2 E.U./dL (<1 E.U./dL)
[2018-11-23 22:38] LABS: URINE APPEARANCE SL CLOUDY (CLEAR); URINE COLOR YELLOW (YELLOW)
[2018-11-23 22:39] LABS: URINE EPITHELIAL CELLS 0 - 2 /hpf (0-5); URINE WBC 0 - 2 /hpf (0-6)
[2018-11-23 22:40] LABS: URINE BACTERIA FEW /hpf
[2018-11-24] MEDS: Pantoprazole 40 mg EC Tab PO SCH (06:21)
[2018-11-24 08:12] LABS: BASO # 0.03 K/mm3 (0.0-2.0); BASO % 0.2 % (0.0-3.0); EOS # 0.1 (0.0-0.7); EOS % 0.6 % (1.5-5.0); HEMOGLOBIN 9.6 g/dL (14.0-18.0); LYMPH # 1.3 (1.2-3.4); LYMPH % 7.3 % (22.0-35.0); MEAN CELL VOLUME 94.5 fl (80.0-105.0); MEAN CORPUSCULAR HEMOGLOBIN 30.9 pg (25.0-35.0); MEAN CORPUSCULAR HGB CONC 32.7 g/dl (31.0-37.0); MEAN PLATELET VOLUME 10.4 fl (7.0-11.0); MONO # 2.3 (0.1-0.6); MONO % 13.2 % (1.0-6.0); RBC 3.11 10^6/uL (3.5-6.1); RED CELL DISTRIBUTION WIDTH 17.2 % (11.5-14.5); WHITE BLOOD COUNT 17.5 10^3/uL (4.5-11.0)
[2018-11-24 08:27] LABS: ALBUMIN 3.3 g/dL (3.0-4.8); BILIRUBIN,DIRECT 0.3 mg/dL (0.0-0.4); CALCIUM 8.6 mg/dL (8.4-10.5)
--- NOTE | 2018-11-24 08:29 | PN ---
DATE: 11/23/2018 SUBJECTIVE: The patient is seen in bed, in no acute distress. Has a fever. PHYSICAL EXAMINATION: VITAL SIGNS: Temperature 101.8, blood pressure is 95/59, respiratory rate of 18. HEENT: Unremarkable. NECK: Supple. LUNGS: Have decreased breath sounds. HEART: Normal S1 and S2. ABDOMEN: Soft. LABORATORY EXAMINATION: Reveals a white count of 16,000, hemoglobin of 10, platelets of 328. BUN of 35, creatinine of 2. Microbiology reveals Pseudomonas and group B strep. Review of medications reveals the patient to be on meropenem. The patient had a CAT scan of the abdomen and pelvis. No acute intrathoracic or abdominal pathology. ASSESSMENT AND PLAN: A 73-year-old male with sepsis, left foot cellulitis with Pseudomonas and group B streptococcus, on meropenem. The patient is with hypertension and possible surgery below-knee amputation, continues to have fevers. Tai Landaverde MD
[2018-11-24] MEDS: Insulin Lispro (humaLOG) MEDIUM Coverage SC SCH ×3 (08:48→17:10)
[2018-11-24 08:50] LABS: FREE T4 1.83 ng/dL (0.78-2.19)
--- NOTE | 2018-11-24 09:09 | CT ---
Date of service: 11/24/2018 PROCEDURE: CT HEAD WITHOUT CONTRAST. HISTORY: DISORIENTATION/CONFUSION COMPARISON: None available. TECHNIQUE: Axial computed tomography images were obtained through the head/brain without intravenous contrast. Radiation dose: Total exam DLP = 1023.55 mGy-cm. This CT exam was performed using one or more of the following dose reduction techniques: Automated exposure control, adjustment of the mA and/or kV according to patient size, and/or use of iterative reconstruction technique. FINDINGS: HEMORRHAGE: No intracranial hemorrhage. BRAIN: No mass effect or edema. Chronic microvascular changes. Mild atrophy VENTRICLES: Unremarkable. No hydrocephalus. CALVARIUM: Unremarkable. PARANASAL SINUSES: Unremarkable as visualized. No significant inflammatory changes. MASTOID AIR CELLS: Unremarkable as visualized. No inflammatory changes. OTHER FINDINGS: None. IMPRESSION: No acute findings
[2018-11-24] MEDS: Insulin Human NPH 1 UNITS/0.01 ML SC SCH ×2 (10:26→17:11)
[2018-11-24] MEDS: POLYETHYLENE GLYCOL 3350 17 GM/Dose PACKET PO SCH ×2 (10:27→17:11)
[2018-11-24] MEDS: MEROPENEM 500 MG in NS 500 MG/50 ML BAG IVPB SCH ×2 (10:27→21:07)
[2018-11-24] MEDS: Cilostazol 50 mg Tab UD PO SCH ×2 (10:27→17:11)
[2018-11-24] MEDS: Sodium Chloride 0.9% 1,000 ML IV SCH (10:27)
[2018-11-24] MEDS: Multivitamin Vitamin B Complex (Nephro-Vite) Tab PO SCH (10:27)
--- NOTE | 2018-11-24 11:52 | CP.PCM.PCO ---
Physician Communication Note - Physician Communication Note Physician Communication Note: OR pending
[2018-11-24 13:09] LABS: FOLATE > 20.0 ng/mL
--- NOTE | 2018-11-24 13:11 | CP.PCM.PN ---
<Kirby Aquino - Last Filed: 11/24/18 14:46> Subjective - Date & Time of Evaluation Date of Evaluation: 11/24/18 Time of Evaluation: 10:45 - Subjective Subjective: General surgery progress note for Dr. Ian Aquino, PGY1 Patient seen and examined at bedside this morning. No acute events reported overnight. Patient noted to be confused this morning and CT head is unremarkable. Patient denies left foot pain today as well as fevers, SOB and CP. Objective - Vital Signs/Intake and Output Vital Signs (last 24 hours): Temp Pulse Resp BP Pulse Ox 99.5 F 112 H 21 139/70 97 11/24/18 06:00 11/24/18 06:21 11/24/18 06:00 11/24/18 06:21 11/24/18 06:00 Intake and Output: 11/24/18 11/24/18 06:59 18:59 Intake Total 480 Output Total 504 Balance -24 - Medications Medications: Current Medications Acetaminophen (Tylenol 325mg Tab) 650 mg PO Q6H PRN PRN Reason: Pain, moderate (4-7) Last Admin: 11/20/18 18:36 Dose: 650 mg Acetaminophen (Tylenol 650 Mg Supp) 650 mg RC Q6H PRN PRN Reason: TEMP>=99.5F Acetaminophen (Tylenol 325mg Tab) 650 mg PO Q6 PRN PRN Reason: TEMP>=99.5F Last Admin: 11/23/18 13:55 Dose: 650 mg Acetaminophen (Tylenol 650 Mg Supp) 650 mg RC Q6H PRN PRN Reason: TEMP>=99.5F Allopurinol (Zyloprim) 100 mg PO DAILY [facility] Last Admin: 11/24/18 10:28 Dose: 100 mg Aspirin (Ecotrin) 81 mg PO 0800 [facility] Last Admin: 11/24/18 10:26 Dose: 81 mg Atorvastatin Calcium (Lipitor) 20 mg PO DIN [facility] Last Admin: 11/23/18 16:46 Dose: 20 mg Cilostazol (Pletal) 50 mg PO BID [facility] Last Admin: 11/24/18 10:27 Dose: 50 mg Darbepoetin Arturo (Aranesp) 40 mcg SC QWK [facility] Last Admin: 11/18/18 11:21 Dose: 40 mcg Dextrose (Dextrose 50% Inj) 0 ml IV STAT PRN; Protocol PRN Reason: Hypoglycemia Protocol Docusate Sodium (Colace) 100 mg PO TID [facility] Last Admin: 11/24/18 10:26 Dose: 100 mg Ergocalciferol (Drisdol 50,000 Intl Units Cap) 1 cap PO ONCE ONE Stop: 11/28/18 10:01 Ferrous Sulfate (Feosol) 324 mg PO BID [facility] Last Admin: 11/24/18 10:26 Dose: 324 mg Heparin Sodium (Porcine) (Heparin) 5,000 units SC Q8 [facility]; Protocol Last Admin: 11/24/18 06:22 Dose: 5,000 units Meropenem/Sodium Chloride (Merrem Iv 500 Mg/Ns 50 Ml) 500 mg in 50 mls @ 100 mls/hr IVPB Q12 [facility]; Protocol Last Admin: 11/24/18 10:27 Dose: 100 mls/hr Dextrose (Dextrose 5% In Water 1000 Ml) 1,000 mls @ 0 mls/hr IV .Q0M PRN; Protocol PRN Reason: Hypoglycemia Protocol Sodium Chloride (Sodium Chloride 0.9%) 1,000 mls @ 60 mls/hr IV .[id number] [facility] Stop: 11/25/18 15:16 Last Admin: 11/24/18 10:27 Dose: 60 mls/hr Insulin Human Lispro (Humalog Med) 0 units SC AC [facility]; Protocol Last Admin: 11/24/18 12:17 Dose: 7 units Insulin Human N[facility] ([facility]ulin N) [facility] Last Admin: 11/24/18 10:26 Dose: 20 units Metoprolol Tartrate (Lopressor) 25 mg PO Q8H [facility] Last Admin: 11/24/18 06:21 Dose: 25 mg Ondansetron HCl (Zofran Inj) 4 mg IVP Q4H PRN PRN Reason: Nausea/Vomiting Ondansetron HCl (Zofran Inj) 4 mg IVP Q4H PRN PRN Reason: Nausea/Vomiting Pantoprazole Sodium (Protonix Ec Tab) 40 mg PO 0600 [facility] Last Admin: 11/24/18 06:21 Dose: 40 mg Polyethylene Glycol (Miralax) 17 gm PO BID [facility] Last Admin: 11/24/18 10:27 Dose: 17 gm Tamsulosin HCl (Flomax) 0.4 mg PO 1830 [facility] Last Admin: 11/23/18 17:09 Dose: 0.4 mg Vitamin B Complex/Vit C/Folic Acid (Nephro-Sumit) 1 tab PO 0800 [facility] Last Admin: 11/24/18 10:27 Dose: 1 tab - Labs Labs: 11/24/18 07:30 11/24/18 07:30 PT 14.4 SECONDS (9.4-12.5) H 11/23/18 07:20 INR 1.27 11/23/18 07:20 APTT 28.3 Seconds (26.9-38.3) 11/16/18 12:40 - Constitutional Appears: Non-toxic, No Acute Distress - Head Exam Head Exam: ATRAUMATIC, NORMAL INSPECTION - Eye Exam Eye Exam: EOMI, Normal appearance - ENT Exam ENT Exam: Mucous Membranes Moist, Normal Exam - Neck Exam Neck exam: Positive for: Normal Inspection - Respiratory Exam Respiratory Exam: NORMAL BREATHING PATTERN, no respiratory distress - Cardiovascular Exam Cardiovascular Exam: No tachycardia, +S1, +S2 - GI/Abdominal Exam GI & Abdominal Exam: Soft. absent: Distended, Tenderness, rebound, guarding - Extremities Exam Extremities exam: DP non palpable B/L. Left foot with dressing in place, non draining. Femoral pulses +2 B/L - Neurological Exam Additional comments: Awake, Alert to person and place - Skin Skin Exam: Dry, Intact, Normal Color, Warm Assessment and Plan - Assessment and Plan (Free Text) Assessment: This is a 73 year old male with PMH significant for PAD, CKD and DM presenting to the hospital for chronic non healing left foot ulcer. Plan: -Plan for OR debridement on -NPO Thursday night -wound care dressing -Further recommendations as per Dr. Sosa <Kain Sosa - Last Filed: 12/09/18 18:46> Objective - Vital Signs/Intake and Output Vital Signs (last 24 hours): Temp Pulse Resp BP Pulse Ox 98.4 F 94 H 20 97/62 L 100 12/09/18 13:44 12/09/18 13:44 12/09/18 13:44 12/09/18 13:44 12/09/18 13:44 Intake and Output: 12/09/18 12/09/18 06:59 18:59 Intake Total 480 Output Total 300 Balance 180 - Medications Medications: Current Medications Acetaminophen (Tylenol 325mg Tab) 650 mg PO Q6H PRN PRN Reason: Pain, Mild (1-3) Last Admin: 12/08/18 09:31 Dose: 650 mg Acetaminophen (Tylenol 325mg Tab) 650 mg PO Q6 PRN PRN Reason: Fever >100.4 F Dextrose (Dextrose 50% Inj) 0 ml IV STAT PRN; Protocol PRN Reason: Hypoglycemia Protocol Dextrose (Dextrose 50% Inj) 0 ml IV STAT PRN; Protocol PRN Reason: Hypoglycemia Protocol Docusate Sodium (Colace) 100 mg PO TID [facility] Last Admin: 12/09/18 18:14 Dose: 100 mg Famotidine (Pepcid) 20 mg PO 1000,2200 [facility] Stop: 12/11/18 10:01 Last Admin: 12/09/18 10:50 Dose: 20 mg Ferrous Gluconate (Fergon) 324 mg PO TID [facility] Last Admin: 12/09/18 18:14 Dose: 324 mg Heparin Sodium (Porcine) (Heparin) 5,000 units SC Q8 [facility]; Protocol Last Admin: 12/09/18 15:31 Dose: 5,000 units Dextrose (Dextrose 5% In Water 1000 Ml) 1,000 mls @ 0 mls/hr IV .Q0M PRN; Prot ocol PRN Reason: Hypoglycemia Protocol Meropenem/Sodium Chloride (Merrem Iv 500 Mg/Ns 50 Ml) 500 mg in 50 mls @ 100 mls/hr IVPB Q12 [facility]; Protocol Last Admin: 12/09/18 10:51 Dose: 100 mls/hr Dextrose (Dextrose 5% In Water 1000 Ml) 1,000 mls @ 0 mls/hr IV .Q0M PRN; Protocol PRN Reason: Hypoglycemia Protocol Insulin Human Lispro (Humalog Med) 0 units SC AC [facility]; Protocol Last Admin: 12/09/18 17:00 Dose: 1 units Insulin Human NPH (Humulin N) 17 units SC ACBD [facility] Last Admin: 12/09/18 17:03 Dose: 17 unit Midodrine (Proamatine) 5 mg PO TID [facility] Last Admin: 12/09/18 18:14 Dose: 5 mg Nystatin (Nystop Topical Powder) 0 gm TOP BID [facility] Last Admin: 12/09/18 18:17 Dose: 1 appl Ondansetron HCl (Zofran Inj) 4 mg IVP Q4H PRN PRN Reason: Nausea/Vomiting Pantoprazole Sodium (Protonix Ec Tab) 40 mg PO 0600 [facility] Last Admin: 12/09/18 05:37 Dose: 40 mg Polyethylene Glycol (Miralax) 17 gm PO BID [facility] Last Admin: 12/09/18 18:16 Dose: Not Given Sodium Hypochlorite (Dakins Solution 0.25%) 20 ml TOP DAILY [facility] Last Admin: 12/09/18 10:47 Dose: 1 applic Tamsulosin HCl (Flomax) 0.4 mg PO DAILY [facility] Last Admin: 12/09/18 10:49 Dose: 0.4 mg Vitamin B Complex/Vit C/Folic Acid (Nephro-Sumit) 1 tab PO 0800 [facility] Last Admin: 12/09/18 08:17 Dose: 1 tab - Labs Labs: 12/09/18 07:30 12/09/18 07:30 PT 14.7 SECONDS (9.4-12.5) H 11/25/18 13:05 INR 1.30 11/25/18 13:05 APTT 26.3 Seconds (26.9-38.3) L 11/25/18 13:05 Assessment and Plan - Assessment and Plan (Free Text) Assessment: Patient was seen, evaluated and examined by me at the bedside. I agree with assessment and plan as stated in the resident's note.
--- NOTE | 2018-11-24 15:08 | CP.PCM.PN ---
<Evans Waterman - Last Filed: 11/24/18 15:12> Subjective - Date & Time of Evaluation Date of Evaluation: 11/24/18 Time of Evaluation: 09:08 - Subjective Subjective: Evans Waterman PGY2 IM Progress Note for Dr. Ling Patient was seen and examined at bedside. He is confused this morning, but denies any left foot pain. Patient had fever yesterday but otherwise there were no acute overnight events. Nursing and specialists' notes were reviewed. Patient is for OR for L foot debridement tomorrow. Objective - Vital Signs/Intake and Output Vital Signs (last 24 hours): Temp Pulse Resp BP Pulse Ox 99.5 F 112 H 21 139/70 97 11/24/18 06:00 11/24/18 06:21 11/24/18 06:00 11/24/18 06:21 11/24/18 06:00 Intake and Output: 11/24/18 11/24/18 06:59 18:59 Intake Total 480 Output Total 504 Balance -24 - Medications Medications: Current Medications Acetaminophen (Tylenol 325mg Tab) 650 mg PO Q6H PRN PRN Reason: Pain, moderate (4-7) Last Admin: 11/20/18 18:36 Dose: 650 mg Acetaminophen (Tylenol 650 Mg Supp) 650 mg RC Q6H PRN PRN Reason: TEMP>=99.5F Acetaminophen (Tylenol 325mg Tab) 650 mg PO Q6 PRN PRN Reason: TEMP>=99.5F Last Admin: 11/23/18 13:55 Dose: 650 mg Acetaminophen (Tylenol 650 Mg Supp) 650 mg RC Q6H PRN PRN Reason: TEMP>=99.5F Allopurinol (Zyloprim) 100 mg PO DAILY [facility] Last Admin: 11/24/18 10:28 Dose: 100 mg Aspirin (Ecotrin) 81 mg PO 0800 [facility] Last Admin: 11/24/18 10:26 Dose: 81 mg Atorvastatin Calcium (Lipitor) 20 mg PO DIN [facility] Last Admin: 11/23/18 16:46 Dose: 20 mg Cilostazol (Pletal) 50 mg PO BID [facility] Last Admin: 11/24/18 10:27 Dose: 50 mg Darbepoetin Arturo (Aranesp) 40 mcg SC QWK [facility] Last Admin: 11/18/18 11:21 Dose: 40 mcg Dextrose (Dextrose 50% Inj) 0 ml IV STAT PRN; Protocol PRN Reason: Hypoglycemia Protocol Docusate Sodium (Colace) 100 mg PO TID [facility] Last Admin: 11/24/18 13:58 Dose: Not Given Ergocalciferol (Drisdol 50,000 Intl Units Cap) 1 cap PO ONCE ONE Stop: 11/28/18 10:01 Ferrous Sulfate (Feosol) 324 mg PO BID [facility] Last Admin: 11/24/18 10:26 Dose: 324 mg Meropenem/Sodium Chloride (Merrem Iv 500 Mg/Ns 50 Ml) 500 mg in 50 mls @ 100 mls/hr IVPB Q12 [facility]; Protocol Last Admin: 11/24/18 10:27 Dose: 100 mls/hr Dextrose (Dextrose 5% In Water 1000 Ml) 1,000 mls @ 0 mls/hr IV .Q0M PRN; Protocol PRN Reason: Hypoglycemia Protocol Sodium Chloride (Sodium Chloride 0.9%) 1,000 mls @ 60 mls/hr IV .[id number] [facility] Stop: 11/25/18 15:16 Last Admin: 11/24/18 10:27 Dose: 60 mls/hr Insulin Human Lispro (Humalog Med) 0 units SC AC [facility]; Protocol Last Admin: 11/24/18 12:17 Dose: 7 units Insulin Human N[facility] (Humulin N) [facility] Last Admin: 11/24/18 10:26 Dose: 20 units Metoprolol Tartrate (Lopressor) 25 mg PO Q8H [facility] Last Admin: 11/24/18 13:59 Dose: Not Given Ondansetron HCl (Zofran Inj) 4 mg IVP Q4H PRN PRN Reason: Nausea/Vomiting Ondansetron HCl (Zofran Inj) 4 mg IVP Q4H PRN PRN Reason: Nausea/Vomiting Pantoprazole Sodium (Protonix Ec Tab) 40 mg PO 0600 [facility] Last Admin: 11/24/18 06:21 Dose: 40 mg Polyethylene Glycol (Miralax) 17 gm PO BID [facility] Last Admin: 11/24/18 10:27 Dose: 17 gm Tamsulosin HCl (Flomax) 0.4 mg PO 1830 [facility] Last Admin: 11/23/18 17:09 Dose: 0.4 mg Vitamin B Complex/Vit C/Folic Acid (Nephro-Sumit) 1 tab PO 0800 [facility] Last Admin: 11/24/18 10:27 Dose: 1 tab - Labs Labs: 11/24/18 07:30 11/24/18 07:30 PT 14.4 SECONDS (9.4-12.5) H 11/23/18 07:20 INR 1.27 11/23/18 07:20 APTT 28.3 Seconds (26.9-38.3) 11/16/18 12:40 - Constitutional Appears: Well, Non-toxic, No Acute Distress - Head Exam Head Exam: ATRAUMATIC, NORMAL INSPECTION - Eye Exam Eye Exam: Normal appearance, PERRL - ENT Exam ENT Exam: Mucous Membranes Moist, Normal Exam - Neck Exam Neck Exam: Full ROM, Normal Inspection - Respiratory Exam Respiratory Exam: NORMAL BREATHING PATTERN. absent: Respiratory Distress - Cardiovascular Exam Cardiovascular Exam: Tachycardia, +S1, +S2 - GI/Abdominal Exam GI & Abdominal Exam: Soft. absent: Distended, Tenderness - Extremities Exam Extremities Exam: absent: Normal Inspection Additional comments: poor right peripheral pulses absent LLE DP/PT pulses gangrenous looking left foot - Neurological Exam Neurological Exam: Awake. absent: Oriented x3 - Skin Skin Exam: Normal Color, Warm Additional comments: foot changes as above Assessment and Plan - Assessment and Plan (Free Text) Assessment: 73 year old male with a PMH of PAD s/p 2nd left toe amputation (09/2017), DM2, CHFrEF, gout and arthritis who presented for left foot pain x2 months, but recently worsening. Patient found to have severe PAD, cellulitis of left foot due to pseudomonas w/ gangrenous changes. MRI showed no osteomyelitis changes. IR recommended against angioplasty due to low chance of successful intervention. Podiatry following with daily foot care. Plan for OR debridement w/ surgical team on . Cardiology, GI and Nephrology are following for pre-op optimization. Plan: - CT head ordered for evaluation of episodic confusion - Neurology consulted, recs appreciated - bone scan will be ordered to re-evaluate foot for osteo - chest/abd/pelvis CT reviewed for other sources of infection/fever - Surgery team following, plan for OR debridement tomorrow - Podiatry team following with foot care - ID team consulted, recs appreciated - Nephrology and Cardiology consulted for ongoing medical conditions, recs appreciated - cont Abx per ID recs, on Meropenem - restart home meds - cont cilostazol - cont ISS and accuchecks ACHS - tylenol PRN fevers - SCDs for DVT ppx; heparin d/c - PPI for GI ppx - consistent carb diet; NPO past midnight - further recs per Dr. Ling Case was reviewed with Dr. Ling <[email or web address] U - Last Filed: 12/13/18 14:27> Objective - Vital Signs/Intake and Output Vital Signs (last 24 hours): Temp Pulse Resp BP Pulse Ox 98.3 F 94 H 17 93/57 L 99 12/12/18 14:00 12/12/18 14:00 12/12/18 14:00 12/12/18 14:00 12/12/18 14:00 - Medications Medications: Current Medications Acetaminophen (Tylenol 325mg Tab) 650 mg PO Q6 PRN PRN Reason: TEMP>=99.5F Last Admin: 12/12/18 22:42 Dose: 650 mg Acetaminophen (Tylenol 650 Mg Supp) 650 mg RC Q6H PRN PRN Reason: TEMP>=99.5F Dextrose (Dextrose 50% Inj) 0 ml IV STAT PRN; Protocol PRN Reason: Hypoglycemia Protocol Docusate Sodium (Colace) 100 mg PO TID [facility] Last Admin: 12/13/18 10:27 Dose: 100 mg Ferrous Gluconate (Fergon) 324 mg PO TID [facility] Last Admin: 12/13/18 10:28 Dose: 324 mg Heparin Sodium (Porcine) (Heparin) 5,000 units SC Q8 [facility]; Protocol Last Admin: 12/13/18 05:03 Dose: 5,000 units Dextrose (Dextrose 5% In Water 1000 Ml) 1,000 mls @ 0 mls/hr IV .Q0M PRN; Protocol PRN Reason: Hypoglycemia Protocol Insulin Human Lispro (Humalog Med) 0 units SC AC [facility]; Protocol Last Admin: 12/13/18 12:48 Dose: 5 units Insulin Human NPH (Humulin N) 17 units SC ACBD [facility] Last Admin: 12/13/18 10:28 Dose: 17 unit Metoclopramide HCl (Reglan) 10 mg IV ONCE PRN PRN Reason: Nausea/Vomiting Midodrine (Proamatine) 10 mg PO TID [facility] Last Admin: 05/20/19 10:28 Dose: 10 mg Nystatin (Nystop Topical Powder) 0 gm TOP BID [facility] Last Admin: 12/13/18 10:31 Dose: 1 appl Ondansetron HCl (Zofran Inj) 4 mg IVP Q4H PRN PRN Reason: Nausea/Vomiting Pantoprazole Sodium (Protonix Ec Tab) 40 mg PO 0600 [facility] Last Admin: 12/13/18 05:03 Dose: 40 mg Polyethylene Glycol (Miralax) 17 gm PO BID [facility] Last Admin: 12/13/18 10:28 Dose: 17 gm Tamsulosin HCl (Flomax) 0.4 mg PO DAILY [facility] Last Admin: 12/13/18 10:28 Dose: 0.4 mg Vitamin B Complex/Vit C/Folic Acid (Nephro-Sumit) 1 tab PO 0800 [facility] Last Admin: 12/13/18 10:28 Dose: 1 tab - Labs Labs: 12/13/18 07:00 12/13/18 07:00 PT 12.6 SECONDS (9.4-12.5) H 12/10/18 13:10 INR 1.12 12/10/18 13:10 APTT 30.3 Seconds (26.9-38.3) 12/10/18 13:10 Attending/Attestation - Attestation I have personally seen and examined this patient.: Yes I have fully participated in the care of the patient.: Yes I have reviewed all pertinent clinical information, including history, physical exam and plan: Yes Notes (Text): Please see/read my dictated notes.
--- NOTE | 2018-11-24 15:29 | NM ---
Date of service: 11/24/2018 PROCEDURE: Whole Body Bone Scan HISTORY: Osteomyelitis suspected left foot. COMPARISON: 11/17/2018 MRI left lower extremity/left foot. 11/16/2018 left foot radiographs Summary of findings on the comparison examination: Bony destruction and sclerosis 1st metatarsal phalangeal joint. Prior amputation 2nd proximal phalanx. TECHNIQUE: Following administration of 26.4 miCu of Tc MDP three-phase bone scan performed particular attention directed to the left lower extremity. FINDINGS: Flow component: Increased flow to the left lower extremity, generalized about the ankle and left foot. Blood pool component: Accumulation of radionuclide primarily in the soft tissues of the midfoot. Delayed images at 3:00: Uptake in both ankles and feet compatible with degenerative/posttraumatic change. There appear to be correlates with plain film radiographs left foot. Other findings: None. IMPRESSION: Findings consistent with cellulitis without acute osseous abnormality.
--- NOTE | 2018-11-24 15:39 | CP.PCM.PN ---
Subjective - Date & Time of Evaluation Date of Evaluation: 11/24/18 Time of Evaluation: 15:38 - Subjective Subjective: Nephrology Consultation Note: Assessment: Stable Acute Kidney Injury (N17.9) likely due to sepsis with cellulitis: Improved with IVF metabolic acidosis Diabetic chronic Kidney Disease (E11.22) Hypertensive Chronic Kidney Disease (I12.9) Chronic Kidney Disease (N18.3) Stage 3 without proteinuria (R80.9) likely due to HTN/vasc disease Anemia (D64.9), DM, gout PVD severe MR/TR with sys CHF LVEF 35-40% MGUS Plan No acute need for renal replacement therapy at this time. Hypertension control with meds as ordered. Maintain hemodynamics stable. Avoid hypotension. Patient not on ACEI/ARB due to EMIL and hyperkalemia tendency. consider to add once stable. Monitor Input/Output, daily weights and renal function with basic metabolic panel continue with iron and MVI. PRBC as needed. dose of aransep 40 mcg 11/17/18. K/L ratio remains high at 3.6. suggest hematology eval vit d can be changed to once a month as last level 41 continue with flomax continue with IVF for another 1-2 day if pt need angiogram, he will be at increased risk of contrast nephropathy. suggest IVF pre-procedure NS @ 100 ml/hr to reduce the risk of EMIL. Pt for possible left BKA Dose meds/antibiotics for reduced GFR. Avoid fleets enema/magnesium based laxatives. Avoid nephrotoxins/NSAIDs/ iodinated contrast (unless needed emergently) Glycemic control Further work up/management as per primary team Thanks for allowing me to participate in care of your patient. Will follow patient with you. Please call if any Qs. had d/w team and son Dr Anjum Padron Office: [phone] Chief Complaint; Foot ulcer Reason for consult: Acute Kidney Injury HPI: Pt is a 73 M with hx of diabetes Mellitus (30 years), hypertension (years) PVD, Gout CKD 3 with baseline cr 1.8-1.9 presented with complaints of foot ulcer, being managed for cellulitis. seen for EMIL and pt also with PVD Denies OTC/herbal meds or NSAIDs. No recent iodinated contrast exposure. Noted obvious episodes of low BP. pt still not aware about kidney disease in past ROS: noted overnight events Cardiovascular: No chest pain. Pulmonary: No shortness of breath Gastrointestinal: denies abdominal pain No nausea. No vomiting. Genitourinary: No pain while urinating. Denies blood in urine. sometimes feels hesitancy. All other negative except as mentioned in HPI. per son, pt refused to go for outpt follow ups Physical Examination: General Appearance: Comfortable, in no acute respiratory distress, co-operative . Vitals reviewed and noted as below Head; Atraumatic, normocephalic ENT: no ulcers no thrush. Tongue is midline. Oropharynx: no rash or ulcers. EYES: Pupils are equal, round and reactive to light accommodation. Eye muscles and extra-ocular movement intact. Sclera is anicteric. Neck; supple no lymphadenopathy, no thyromegaly or bruit Lungs: Normal respiratory rate/effort. Breath sounds bilateral equal and clear Heart: Incr rate. s1s2 normal. No rub or gallop. Extremities: no edema. No varicose veins. left foot in dressing Neurological: Patient is alert, awake and oriented to person, place and time. No focal deficit. Strength bilateral appropriate and equal Skin: Warm and dry. Normal turgor. No rash. Palpitation: Normal elasticity for age Abdomen: Abdomen is soft. Bowel sounds +. There is no abdominal tenderness, no guarding/rigidity no organomegaly Psych: lack insight and normal affect/mood MSK: no joint tenderness or swelling. Digits and nails normal, no deformity : kidney or bladder not palpable. Labs/imaging reviewed. Past medical history, past surgical history, family history, social history, allergy reviewed and noted as below Family hx: no hx of CKD. Rest non-contributory Phos 3.5 TSAT 13% Vit D 41 PTH 49 LDL 103 kappa/lambda 3.4 uric acid 7.5 renal cyst left side Objective - Vital Signs/Intake and Output Vital Signs (last 24 hours): Temp Pulse Resp BP Pulse Ox 99.5 F 112 H 21 139/70 97 11/24/18 06:00 11/24/18 06:21 11/24/18 06:00 11/24/18 06:21 11/24/18 06:00 Intake and Output: 11/24/18 11/24/18 06:59 18:59 Intake Total 480 Output Total 504 Balance -24 - Medications Medications: Current Medications Acetaminophen (Tylenol 325mg Tab) 650 mg PO Q6H PRN PRN Reason: Pain, moderate (4-7) Last Admin: 11/20/18 18:36 Dose: 650 mg Acetaminophen (Tylenol 650 Mg Supp) 650 mg RC Q6H PRN PRN Reason: TEMP>=99.5F Acetaminophen (Tylenol 325mg Tab) 650 mg PO Q6 PRN PRN Reason: TEMP>=99.5F Last Admin: 11/23/18 13:55 Dose: 650 mg Acetaminophen (Tylenol 650 Mg Supp) 650 mg RC Q6H PRN PRN Reason: TEMP>=99.5F Allopurinol (Zyloprim) 100 mg PO DAILY [facility] Last Admin: 11/24/18 10:28 Dose: 100 mg Aspirin (Ecotrin) 81 mg PO 0800 [facility] Last Admin: 11/24/18 10:26 Dose: 81 mg Atorvastatin Calcium (Lipitor) 20 mg PO DIN [facility] Last Admin: 11/23/18 16:46 Dose: 20 mg Cilostazol (Pletal) 50 mg PO BID [facility] Last Admin: 11/24/18 10:27 Dose: 50 mg Darbepoetin Arturo (Aranesp) 40 mcg SC QWK [facility] Last Admin: 11/18/18 11:21 Dose: 40 mcg Dextrose (Dextrose 50% Inj) 0 ml IV STAT PRN; Protocol PRN Reason: Hypoglycemia Protocol Docusate Sodium (Colace) 100 mg PO TID [facility] Last Admin: 11/24/18 13:58 Dose: Not Given Ergocalciferol (Drisdol 50,000 Intl Units Cap) 1 cap PO ONCE ONE Stop: 11/28/18 10:01 Ferrous Sulfate (Feosol) 324 mg PO BID [facility] Last Admin: 11/24/18 10:26 Dose: 324 mg Meropenem/Sodium Chloride (Merrem Iv 500 Mg/Ns 50 Ml) 500 mg in 50 mls @ 100 mls/hr IVPB Q12 [facility]; Protocol Last Admin: 11/24/18 10:27 Dose: 100 mls/hr Dextrose (Dextrose 5% In Water 1000 Ml) 1,000 mls @ 0 mls/hr IV .Q0M PRN; Protocol PRN Reason: Hypoglycemia Protocol Sodium Chloride (Sodium Chloride 0.9%) 1,000 mls @ 60 mls/hr IV .[id number] [facility] Stop: 11/25/18 15:16 Last Admin: 11/24/18 10:27 Dose: 60 mls/hr Insulin Human Lispro (Humalog Med) 0 units SC AC [facility]; Protocol Last Admin: 11/24/18 12:17 Dose: 7 units Insulin Human NPH (Humulin N) 20 units SC ACBD [facility] Last Admin: 11/24/18 10:26 Dose: 20 units Metoprolol Tartrate (Lopressor) 25 mg PO Q8H [facility] Last Admin: 11/24/18 13:59 Dose: Not Given Ondansetron HCl (Zofran Inj) 4 mg IVP Q4H PRN PRN Reason: Nausea/Vomiting Ondansetron HCl (Zofran Inj) 4 mg IVP Q4H PRN PRN Reason: Nausea/Vomiting Pantoprazole Sodium (Protonix Ec Tab) 40 mg PO 0600 [facility] Last Admin: 11/24/18 06:21 Dose: 40 mg Polyethylene Glycol (Miralax) 17 gm PO BID [facility] Last Admin: 11/24/18 10:27 Dose: 17 gm Tamsulosin HCl (Flomax) 0.4 mg PO 1830 [facility] Last Admin: 11/23/18 17:09 Dose: 0.4 mg Vitamin B Complex/Vit C/Folic Acid (Nephro-Sumit) 1 tab PO 0800 [facility] Last Admin: 11/24/18 10:27 Dose: 1 tab - Labs Labs: 11/24/18 07:30 11/24/18 07:30 PT 14.4 SECONDS (9.4-12.5) H 11/23/18 07:20 INR 1.27 11/23/18 07:20 APTT 28.3 Seconds (26.9-38.3) 11/16/18 12:40
--- NOTE | 2018-11-24 17:58 | PN ---
DATE: 11/24/2018 SUBJECTIVE: The patient is seen and examined in room 575, bed 2. The patient is lying in the bed. Overnight notes were reviewed. The patient spiked the temperature of 101.8. The patient was found to be tachycardic. The patient yesterday had a blood pressure of 95/59. The patient was seen and evaluated yesterday. The patient had repeat blood cultures, urine cultures. CT chest, abdomen, and pelvis ordered. Repeat labs ordered. Bone scan has been ordered. PHYSICAL EXAMINATION VITAL SIGNS: T-max 101.8, heart rate 112, blood pressure ranging from 95/59-139/70, respirations 21, O2 sat 97%. GENERAL: According to the nurse's note, the patient was found to be alert, awake, episodically disoriented. HEENT AND NECK: Head: Normocephalic, atraumatic. HEENT examination shows pinkish pale conjunctivae. Dry oral mucosa. No neck rigidity. CHEST: Kyphosis. LUNGS: Show no audible crackles, rales or wheezing. CARDIOVASCULAR: S1, S2, regular rhythm. Positive systolic murmur left sternal border, right second intercostal space, left second intercostal space. ABDOMEN: Soft, positive bowel sounds. No palpable hepatosplenomegaly. GENITALIA: Male. RECTAL: Deferred. EXTREMITIES: Show positive left foot dressing. The patient's left foot was examined in the last 24-48 hours, which shows blackish discoloration of the left foot, forefoot, left great toe, and left forefoot and also blackish discoloration of the second and third toe. MUSCULOSKELETAL: As per body mass index. NEUROLOGIC: The patient is alert, awake, responsive, but according to the nurse's note, the patient has been episodically disoriented and confused. DIAGNOSTICS: Available diagnostics from today; WBC 17.5, hemoglobin and hematocrit 9.6 and 29.4, platelets 340, granulocytes 79% segs. Fingerstick blood sugar 136, 189, 177, 299. Urinalysis shows protein blood and bacteriuria. IMPRESSION 1. High-grade fever and new fever. 2. Tachycardia. 3. Hypotension. 4. Questionable sepsis versus systemic inflammatory response syndrome with high-grade fever, tachycardia, hypotension. 5. Persistent refractory leukocytosis with granulocytosis. 6. Normocytic anemia. 7. Status post packed red blood cell transfusion x2. 8. Uncontrolled type 2 noninsulin-requiring diabetes mellitus with hyperglycemia. 9. Left foot Pseudomonas aeruginosa, group B Streptococcus with beta-hemolytic left foot, and left foot diabetic ulceration and possible diabetic left foot gangrene. 10. Proteinuria. 11. Microscopic hematuria. 12. Bacteriuria. 13. Left foot group B streptococcal beta-hemolytic and Pseudomonas aeruginosa left foot diabetic foot ulceration. 14. Episodic disorientation and confusion, etiology undetermined. 15. Questionable toxic metabolic encephalopathy. 16. Hyperglycemia secondary to uncontrolled diabetes mellitus. 17. Status post packed red blood cell transfusion x2. 18. Persistent refractory leukocytosis. 19. Left foot diabetic ulceration and diabetic cellulitis. 20. Dilated cardiomyopathy. 21. History of poor compliance and noncompliance. 22. History of hyperuricemia and gout. 23. 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 24. Gait dysfunction. 25. Deconditioning. 1. Left foot diabetic ulceration and nonhealing diabetic ulceration with possible diabetic gangrene of the left foot and great toe and the left foot toes with group B Streptococcus and Pseudomonas aeruginosa, cellulitis and diabetic foot gangrene of the left foot. 2. Uncontrolled diabetes mellitus with elevated hemoglobin A1c. 3. Fever. 4. Questionable sepsis. 5. Tachycardia. 6. Possible sepsis versus systemic inflammatory response syndrome. 7. Fever. 8. Transient hypotension. 9. Dilated cardiomyopathy. 10. Persistent refractory leukocytosis. 11. Normocytic anemia status post packed red blood cell transfusion. 12. Granulocytosis. 13. Acute kidney injury with underlying chronic kidney disease, stage IV. 14. Uncontrolled diabetes mellitus with hyperglycemia and an elevated hemoglobin A1c and hyperfructosemia. 15. History of poor compliance and noncompliance. 16. History of hyperuricemia and gout. 17. Severe peripheral vascular disease. 18. History of severe peripheral vascular disease of the lower extremity. 19. Severe mitral and tricuspid regurgitation. 20. Cardiomyopathy with ejection fraction of around 35%. 21. History of poor compliance. 22. History of chronic osteomyelitis of the left foot and partial amputation of the left foot second toe. 1. Fever. 2. Sinus tachycardia. 3. Pseudomonas nose group. Group B streptococcus group B beta hemolytic left foot diabetic foot ulcerations and cellulitis and gangrene. 4. Severe peripheral vascular disease. 5. Persistent refractory leukocytosis with granulocytosis. 6. Anemia with decreasing hemoglobin/hematocrit. 7. Elevated erythrocyte sedimentation rate of 122. 8. Chronic kidney disease, stage 3. 9. Hyperglycemia secondary to uncontrolled diabetes mellitus with hemoglobin A1c of 8.6 and hyper fructose anemia. 10. Transaminitis. 11. Iron-deficiency anemia. 12. Hypertriglyceridemia. 13. Elevated C-reactive protein of greater than 15. 14. Lactic acidosis. 15. Status post packed red blood cell transfusions x2. 16. Left foot erosive changes. 17. Severe peripheral vascular disease of bilateral popliteal trifurcation and tibial disease with normal resting ankle-brachial indices. 18. Chronic osteomyelitis of the left foot with bony destruction and sclerosis around the first metatarsophalangeal joint and partial amputation of the second proximal phalanx. 19. Severe degenerative joint disease of the left midfoot. 20. Left axis deviation. 21. Acute kidney injury with underlying chronic kidney disease. 22. Metabolic acidosis. 23. Hypertensive diabetic chronic kidney disease stage 3 without proteinuria. 24. Monoclonal gammopathy of unknown significance. 25. Severe mitral, tricuspid regurgitation with cardiomyopathy, left ventricular ejection fraction of 35% to 40%. 26. Left foot diabetic foot ulceration and gangrene. 27. Congestive heart failure with reduced ejection fraction. 28. Nonhealing left foot diabetic ulceration. 29. Sepsis with left foot cellulitis and diabetic foot ulceration with Pseudomonas secondary to Pseudomonas aeruginosa and Streptococcus group B beta hemolytic Streptococcus. 30. Questionable and possible delirium versus encephalopathy. 31. Gait dysfunction. 32. Deconditioning. 33. Constipation. 34. Hypovitaminosis D. 35. Prostatic hypertrophy. 36. Hyperlipidemia. 37. Hyperuricemia. 38. Hyperglycemia. 39. Uncontrolled diabetes mellitus with hyperglycemia. 40. Gait dysfunction. 41. History of poor compliance and noncompliance. 1. Left foot Pseudomonas aeruginosa and group B beta hemolytic strep, left foot diabetic foot ulceration and cellulitis. 2. Sepsis secondary to Pseudomonas aeruginosa and group B beta hemolytic strep, left diabetic foot ulceration and cellulitis. 3. Hypertension. 4. Tachycardia. 5. Anemia. 6. Status post packed red blood cell transfusion one unit. 7. Leukocytosis with granulocytosis. 8. Elevated erythrocyte sedimentation rate of 122. 9. Iron-deficiency. 10. Acute kidney injury with underlying chronic kidney disease, stage IV. 11. Uncontrolled diabetes mellitus with hyperglycemia and elevated hemoglobin A1c of 8.6 and elevated fructose, a mean of 329. 12. Transient lactic acidosis. 13. Transaminitis. 14. Hypertriglyceridemia. 15. Elevated C-reactive protein of greater than 15. 16. Gait dysfunction. 17. Deconditioning. 18. Metabolic acidosis. 19. 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 20. Severe mitral, tricuspid regurgitation and systolic congestive heart failure. 21. Left foot cellulitis and left foot diabetic ulceration. 22. Left diabetic foot ulceration and possible gangrene or pre-gangrenous condition of the left foot toes. 23. Left foot second digit amputation. 24. Peripheral vascular disease. 25. Left foot second toe amputation with cyanosis and mummification of the toes and forefoot of the left foot. 26. Severe tibial disease of the lower extremity. 27. Peripheral vascular disease. 28. Anemia of chronic disease. 29. Bilateral popliteal trifurcation and tibial disease. 30. Left anterior hemiblock. 1. Left foot Pseudomonas aeruginosa and group B Streptococcus beta hemolytic left foot cellulitis and diabetic foot ulcer. 2. Severe peripheral vascular disease of the lower extremity. 3. Normocytic anemia with decreasing hemoglobin. 4. Leukocytosis with granulocytosis. 5. Uncontrolled diabetes mellitus with hyperglycemia. 6. Acute kidney injury with underlying chronic kidney disease stage III/IV. 7. Transaminitis. 8. Probably anemia of chronic kidney disease. 9. Acute kidney injury with underlying chronic kidney disease. 10. Metabolic acidosis. 11. Hypertensive diabetic chronic kidney disease. 12. [id number] mitral regurgitation and [id number] tricuspid regurgitation. 13. Dilated cardiomyopathy with ejection fraction of 35%. 14. Sepsis. 15. Hypertension. 16. Gait dysfunction. 17. Deconditioning. 18. Bilateral lower extremity peripheral vascular disease. 19. History of poor compliance and noncompliance. 20. History of hyperuricemia and gout. 1. Left foot cellulitis versus gangrene versus pregangrenous state. 2. Sepsis. 3. Tachycardia. 4. Transient episodic hypotension. 5. Leukocytosis with granulocytosis 6. Elevated erythrocyte sedimentation rate of 122. 7. Normocytic anemia. 8. Chronic kidney disease stage 4 with acute kidney injury. 9. Uncontrolled noninsulin-requiring diabetes mellitus with hyperglycemia and hemoglobin A1c of 8.6. 10. Possible iron-deficiency. 11. Hypertriglyceridemia. 12. Elevated C-reactive protein of greater than 15. 13. Transient lactic acidosis. 14. Transaminitis. 15. Deconditioning. 16. Gait dysfunction. 17. Anemia with decreasing hemoglobin and hematocrit. 18. Metabolic acidosis. 19. Diabetic hypertensive chronic kidney disease. 20. Chronic kidney disease stage 3 without proteinuria. 21. Severe mitral and tricuspid regurgitation. 22. Systolic congestive heart failure. 23. Dilated ischemic cardiomyopathy, etiology undetermined. 1. Left foot cellulitis with diabetic foot disease and possible abscess versus possible osteomyelitis. 2. History of left foot second toe amputation. 3. Hypertension. 4. Tachycardia. 5. Fever. 6. Poor compliance and noncompliance. 7. Leukocytosis with granulocytosis. 8. Normocytic anemia. 9. Elevated erythrocyte sedimentation rate of 122. 10. Chronic kidney disease, stage IV with acute kidney injury. 11. Transient lactic acidosis. 12. History of hyperuricemia. 13. Hypertriglyceridemia. 14. Aortic calcification. 15. Bilateral lower extremity popliteal trifurcation and tibial peripheral vascular disease. 16. Left foot first metatarsophalangeal joint bony destruction and sclerosis, chronic osteomyelitis. 17. 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 18. 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 19. Sinus tachycardia with left anterior hemiblock. 20. Deconditioning. 21. History of poor compliance. 22. Chronic dilated ischemic cardiomyopathy with ejection fraction of . 23. History of hypertension. 24. History of heart failure with reduced ejection fraction of 35%. 25. Pulmonary hypertension with right ventricular systolic pressure of 40 mmHg. 26. Left ventricular global hypokinesis and moderately impaired left ventricular systolic function. 27. Mild aortic regurgitation. 28. Moderate to severe mitral regurgitation. 29. Moderate tricuspid regurgitation. 30. History of constipation. 31. Hypovitaminosis D. 32. History of iron-deficiency anemia. 33. Prostatic hypertrophy. 34. Insulin-requiring diabetes mellitus. 35. Hyperlipidemia. 36. History of peripheral vascular disease. 37. Hyperuricemia. 1. Left foot diabetic foot ulceration versus left foot abscess versus left foot toe osteomyelitis. 2. Tachycardia. 3. Leukocytosis with granulocytosis. 4. Questionable systemic inflammatory response syndrome. 5. Uncontrolled diabetes mellitus with hyperglycemia. 6. Chronic kidney disease stage IV. 7. Mild transaminitis. 8. History of hypertension. 9. Hyperlipidemia. 10. History of prostatic hypertrophy. 11. History of iron-deficiency anemia. 12. History of hypovitaminosis D. 13. History of dilated cardiomyopathy. 14. History of pulmonary hypertension. 15. History of moderate tricuspid regurgitation and mitral regurgitation. 16. Hyperuricemia. PLAN: At this time, the patient is to be continued on all the therapeutic intervention as per the MAR including IV antibiotics as per Infectious Disease recommendation. Infectious Disease re-evaluation has been requested. Neurology consultation has been requested for evaluation of episodic disorientation and confusion. CT of the head without contrast has been ordered which will be reviewed. Neurology consultation with Dr. Wills ordered. Thyroid profile, B12, folate, RPR and Lyme titers are ordered. The patient is presently on consult with Neurology, Infectious Disease, Podiatry, Vascular Surgery, Nephrology and Cardiology. The patient will be continued with close followup with above subspecialty. We are awaiting further intervention, recommendations from Vascular Surgery, Interventional Radiology, Podiatry, Nephrology, Cardiology, Infectious Disease regarding further patient's management. At present, the patient was started on IV fluid by Nephrology. The patient yesterday was given IV fluid bolus, 0.9 normal saline, bolus 250 mL. Blood cultures, urine cultures were ordered. CT chest, abdomen, pelvis was ordered, which did not show any pathology. The patient has been ordered a bone scan for evaluation and to verify MRI findings if there is any evidence of osteomyelitis of the left foot. We are awaiting Neurology evaluation for the patient's episodic confusion and disorientation results pending. Thyroid profile, B12, folate, Lyme titers and RPR is pending. At present, the patient's further management will be dependent upon the patient's clinical condition, hemodynamic status and as per the patient's response to therapeutic intervention, as per the patient's diagnostic test results, and as per recommendation by all the physicians involved in the care of the patient. The patient's overall prognosis is guarded to poor. I have discussed the patient's condition, diagnosis, diagnostic therapeutic intervention, recommendation by all the physicians involved in the care of the patient and the patient's daughter, who is his [place]. We have also spoken to the patient's son who is listed as the next of kin. He has also been advised about the overall the patient's condition, medical condition, comorbidities, diagnosis, diagnostic test results. Recommendation by all the physicians involved in the care of the patient has been extensively explained to the patient's family at length including the son and the daughter, all questions concerned answered. We have also explained to the patient and the patient's family about the patient being high risk for surgical intervention if needed and also the best treatment option to the left foot compression. The best recommendation by Podiatry, Interventional Radiology and Vascular Surgery is most likely below-knee amputation. At present, we are awaiting for further recommendation and therapeutic intervention by all the subspecialties involved in the care of the patient. We will review the repeat blood cultures and all pending test results. Dictated and electronically signed, not read. Niranjan Ling MD [facility]
--- NOTE | 2018-11-24 18:33 | PN ---
DATE: 11/24/2018 CARDIOLOGY FOLLOWUP SUBJECTIVE: The patient is in bed without complaints. PHYSICAL EXAMINATION: VITAL SIGNS: Stable. NECK: Negative JVD. LUNGS: Without rales. HEART: Reveals S1 and S2. EXTREMITIES: Bandage in lower extremities. LABORATORY DATA: Reviewed. IMPRESSION: 1. Cellulitis of the lower extremities. 2. Dilated cardiomyopathy. 3. High probability for coronary artery disease. 4. Renal insufficiency. 5. Anemia. 6. Peripheral vascular disease. The patient is on continued IV antibiotics. Milton Murrell MD
--- NOTE | 2018-11-24 23:29 | CON ---
DATE: 11/24/2018 HISTORY OF PRESENT ILLNESS: This is a 73-year-old male with a past medical history of hypertension, diabetes, CHF, gout, arthritis, cardiomyopathy, left foot second toe amputation. I was called to evaluate the patient for a change in mental status. The patient is lying comfortably in the bed on examination. PAST MEDICAL HISTORY: As above. PHYSICAL EXAMINATION NEUROLOGIC: Awake, oriented to self and place. Pupils reactive. EOM intact. Visual holland full. No facial asymmetry. Tongue in midline. Spontaneous movements of the extremities noted. Deep tendon reflexes 1+. Sensory appears intact. Cerebellar gait deferred. IMPRESSION: A 73-year-old male with left foot toe amputation and sepsis. On antibiotics. Intermittently confused. Continue present management. We will follow up. Thank you. Jared Wills MD
--- NOTE | 2018-11-25 00:49 | PN ---
DATE: 11/24/2018 SUBJECTIVE: Patient is in bed, in no acute distress, nontoxic. PHYSICAL EXAMINATION: VITAL SIGNS: Temperature is 99.7, heart rate of 106, blood pressure is 134/60, respiratory rate of 21. HEENT: Unremarkable. NECK: Supple. LUNGS: Have decreased breath sounds. HEART: Normal S1 and S2. ABDOMEN: Soft. LABORATORY DATA: Reveals a white count of 17,000, creatinine is 1.8. Urinalysis is noted. Microbiology reveals blood culture is negative. Leg culture has Pseudomonas and group B Strep. REVIEW OF ORDERS: Reveals the patient is on meropenem. Dr. Sosa's progress note is reviewed. ASSESSMENT AND PLAN: This is a 73-year-old male seen earlier today in room 575, bed 2 with sepsis, left foot cellulitis with Pseudomonas and group B Streptococcus, on meropenem. Patient with hypertension. Patient for surgery tomorrow. Patient also has a bone scan done today consisting with cellulitis without any osseous abnormality. Tai Landaverde MD
[2018-11-25] MEDS: Sodium Chloride 0.9% 1,000 ML IV SCH (02:01)
[2018-11-25] MEDS: Pantoprazole 40 mg EC Tab PO SCH (06:07)
[2018-11-25] MEDS ORDERED: Oxychlorosene Topical 2 gm Packet TOP ONE (07:21)
[2018-11-25] MEDS ORDERED: Propofol 10 mg/ml Inj (20 ML) ONE (07:38)
[2018-11-25] MEDS ORDERED: ePHEDrine 50 mg/ml Inj ONE (07:54)
[2018-11-25] MEDS: Insulin Lispro (humaLOG) MEDIUM Coverage SC SCH ×3 (07:59→18:07)
[2018-11-25] MEDS: Insulin Human NPH 1 UNITS/0.01 ML SC SCH ×2 (07:59→17:58)
[2018-11-25] MEDS ORDERED: HYDROmorphone 0.5 mg/0.5 ml ISec IVP PRN (08:49)
--- NOTE | 2018-11-25 08:55 | PCM.SURG1 ---
Surgeon's Initial Post Op Note - Surgeon's Notes Surgeon: Dr. Sosa Skiver Machine: Dr. Strickland PGY3 Type of Anesthesia: General LMA Anesthesia Administered By: Dr. Doshi Pre-Operative Diagnosis: left foot osteomylitis, left chronic foot wound Operative Findings: see dictation; 4cm abscess Post-Operative Diagnosis: same Operation Performed: debridement of left foot wound, left great toe ray amputation, 2nd metatarsal amputation, drainage of abscess, removal of 3rd anf 4th toenails Specimen/Specimens Removed: left great toe, wound culture Estimated Blood Loss: EBL {In ML}: 20 Blood Products Given: N/A Drains Used: No Drains Post-Op Condition: Good Date of Surgery/Procedure: 11/25/18 Time of Surgery/Procedure: 08:57
[2018-11-25] MEDS ORDERED: Oxycodone/Acetaminophen 5/325 mg Tab PO PRN (08:59)
--- NOTE | 2018-11-25 10:09 | PN ---
DATE: 11/25/2018 SUBJECTIVE: The patient is seen in PACU Overnight nurse's notes were reviewed. There was no adverse events documented, notified or called for. OBJECTIVE: VITAL SIGNS: Noted. T-max is 99.7, heart rate is 108, blood pressure 119/67, respiration 20, O2 sat 98%. GENERAL: The patient is seen lying in the bed. HEENT: Head examination normocephalic, atraumatic. HEENT examination shows pinkish, pale conjunctivae, anicteric sclerae. No oropharyngeal lesion. NECK: No neck rigidity. CHEST: Kyphosis. LUNGS: Shows no audible crackle, rales or wheezing. CARDIOVASCULAR: S1 and S2, regular rhythm. Questionable soft systolic murmur in left sternal border, right second intercostal space, left second intercostal space. ABDOMEN: Soft, positive bowel sounds. GENITALIA: Male. RECTAL: Deferred. EXTREMITIES: Shows positive left foot dressing. MUSCULOSKELETAL: As per the body mass index. Lower extremity shows no pitting edema, no calve tenderness, no Homans' sign. NEUROLOGIC: The patient is alert, awake, responsive, oriented to person, place, but disoriented to year, date, month and then date of . The patient has a dressing on the left foot. Motor strength is 5/5 in upper and lower extremities. Gait examination is not tested. Cranial nerves II-XII limited. PSYCHIATRIC: Is not applicable and negative for anxiety, depression. Negative for suicidal, homicidal ideation. Negative for auditory and visual hallucination. DIAGNOSTICS: CT of the head was done yesterday, which shows microvascular ischemic disease of the brain and cerebral cortical atrophy of the brain. The patient was seen by Neurology Dr. Jared Wills. No additional recommendations were noted by Neurology. Thyroid function test was normal. Vitamin B12 greater than 1000. RPR was negative. Lyme titers are pending. Three-phase bone scan shows positive cellulitis of the left foot. Negative for osteomyelitis. IMPRESSION: 1. Group B Streptococcus and Pseudomonas aeruginosa, left foot diabetic foot ulceration and gangrene and cellulitis. 2. History of chronic osteomyelitis of the left foot. 3. High-grade fever. 4. Questionable sepsis versus systemic inflammatory response syndrome. 5. Tachycardia. 6 Hypotension. 7. Questionable and possible encephalopathy versus toxic metabolic encephalopathy with episodic confusion and disorientation. 8. Type 2 diabetes mellitus. 9. Anemia of chronic disease. 10. Status post packed red blood cell transfusion x2. 11. Gait dysfunction. 12. Deconditioning. 13. Status post left foot big toe amputation,2nd metatarsal amputation, wound debridement and 3rd and 4th toe nail removal. 14. Persistent refractory leukocytosis with granulocytosis 15. Normocytic anemia. 16. Uncontrolled type 2 diabetes mellitus with hyperglycemia. 17. Microvascular ischemic disease of the brain. 18. Cerebral cortical atrophy of the brain. 19. Gait dysfunction with nonweightbearing status of the left foot. 20. Severe peripheral vascular disease of the lower extremity with severe bilateral tibial and distal lower extremities severe occlusive disease with ankle-brachial index is of less than 1. 21. History of hypertension. 22. History of gout and hyperuricemia. 23. History of gouty arthritis. 24. Dilated cardiomyopathy with ejection fraction of 35% with severe mitral and tricuspid regurgitation. 25. Acute kidney injury with underlying chronic kidney disease stage III. 26. Proteinuria and microscopic hematuria. 1. High-grade fever and new fever. 2. Tachycardia. 3. Hypotension. 4. Questionable sepsis versus systemic inflammatory response syndrome with high-grade fever, tachycardia, hypotension. 5. Persistent refractory leukocytosis with granulocytosis. 6. Normocytic anemia. 7. Status post packed red blood cell transfusion x2. 8. Uncontrolled type 2 noninsulin-requiring diabetes mellitus with hyperglycemia. 9. Left foot Pseudomonas aeruginosa, group B Streptococcus with beta-hemolytic left foot, and left foot diabetic ulceration and possible diabetic left foot gangrene. 10. Proteinuria. 11. Microscopic hematuria. 12. Bacteriuria. 13. Left foot group B streptococcal beta-hemolytic and Pseudomonas aeruginosa left foot diabetic foot ulceration. 14. Episodic disorientation and confusion, etiology undetermined. 15. Questionable toxic metabolic encephalopathy. 16. Hyperglycemia secondary to uncontrolled diabetes mellitus. 17. Status post packed red blood cell transfusion x2. 18. Persistent refractory leukocytosis. 19. Left foot diabetic ulceration and diabetic cellulitis. 20. Dilated cardiomyopathy. 21. History of poor compliance and noncompliance. 22. History of hyperuricemia and gout. 23. 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 24. Gait dysfunction. 25. Deconditioning. 1. Left foot diabetic ulceration and nonhealing diabetic ulceration with possible diabetic gangrene of the left foot and great toe and the left foot toes with group B Streptococcus and Pseudomonas aeruginosa, cellulitis and diabetic foot gangrene of the left foot. 2. Uncontrolled diabetes mellitus with elevated hemoglobin A1c. 3. Fever. 4. Questionable sepsis. 5. Tachycardia. 6. Possible sepsis versus systemic inflammatory response syndrome. 7. Fever. 8. Transient hypotension. 9. Dilated cardiomyopathy. 10. Persistent refractory leukocytosis. 11. Normocytic anemia status post packed red blood cell transfusion. 12. Granulocytosis. 13. Acute kidney injury with underlying chronic kidney disease, stage IV. 14. Uncontrolled diabetes mellitus with hyperglycemia and an elevated hemoglobin A1c and hyperfructosemia. 15. History of poor compliance and noncompliance. 16. History of hyperuricemia and gout. 17. Severe peripheral vascular disease. 18. History of severe peripheral vascular disease of the lower extremity. 19. Severe mitral and tricuspid regurgitation. 20. Cardiomyopathy with ejection fraction of around 35%. 21. History of poor compliance. 22. History of chronic osteomyelitis of the left foot and partial amputation of the left foot second toe. 1. Fever. 2. Sinus tachycardia. 3. Pseudomonas nose group. Group B streptococcus group B beta hemolytic left foot diabetic foot ulcerations and cellulitis and gangrene. 4. Severe peripheral vascular disease. 5. Persistent refractory leukocytosis with granulocytosis. 6. Anemia with decreasing hemoglobin/hematocrit. 7. Elevated erythrocyte sedimentation rate of 122. 8. Chronic kidney disease, stage 3. 9. Hyperglycemia secondary to uncontrolled diabetes mellitus with hemoglobin A1c of 8.6 and hyper fructose anemia. 10. Transaminitis. 11. Iron-deficiency anemia. 12. Hypertriglyceridemia. 13. Elevated C-reactive protein of greater than 15. 14. Lactic acidosis. 15. Status post packed red blood cell transfusions x2. 16. Left foot erosive changes. 17. Severe peripheral vascular disease of bilateral popliteal trifurcation and tibial disease with normal resting ankle-brachial indices. 18. Chronic osteomyelitis of the left foot with bony destruction and sclerosis around the first metatarsophalangeal joint and partial amputation of the second proximal phalanx. 19. Severe degenerative joint disease of the left midfoot. 20. Left axis deviation. 21. Acute kidney injury with underlying chronic kidney disease. 22. Metabolic acidosis. 23. Hypertensive diabetic chronic kidney disease stage 3 without proteinuria. 24. Monoclonal gammopathy of unknown significance. 25. Severe mitral, tricuspid regurgitation with cardiomyopathy, left ventricular ejection fraction of 35% to 40%. 26. Left foot diabetic foot ulceration and gangrene. 27. Congestive heart failure with reduced ejection fraction. 28. Nonhealing left foot diabetic ulceration. 29. Sepsis with left foot cellulitis and diabetic foot ulceration with Pseudomonas secondary to Pseudomonas aeruginosa and Streptococcus group B beta hemolytic Streptococcus. 30. Questionable and possible delirium versus encephalopathy. 31. Gait dysfunction. 32. Deconditioning. 33. Constipation. 34. Hypovitaminosis D. 35. Prostatic hypertrophy. 36. Hyperlipidemia. 37. Hyperuricemia. 38. Hyperglycemia. 39. Uncontrolled diabetes mellitus with hyperglycemia. 40. Gait dysfunction. 41. History of poor compliance and noncompliance. 1. Left foot Pseudomonas aeruginosa and group B beta hemolytic strep, left foot diabetic foot ulceration and cellulitis. 2. Sepsis secondary to Pseudomonas aeruginosa and group B beta hemolytic strep, left diabetic foot ulceration and cellulitis. 3. Hypertension. 4. Tachycardia. 5. Anemia. 6. Status post packed red blood cell transfusion one unit. 7. Leukocytosis with granulocytosis. 8. Elevated erythrocyte sedimentation rate of 122. 9. Iron-deficiency. 10. Acute kidney injury with underlying chronic kidney disease, stage IV. 11. Uncontrolled diabetes mellitus with hyperglycemia and elevated hemoglobin A1c of 8.6 and elevated fructose, a mean of 329. 12. Transient lactic acidosis. 13. Transaminitis. 14. Hypertriglyceridemia. 15. Elevated C-reactive protein of greater than 15. 16. Gait dysfunction. 17. Deconditioning. 18. Metabolic acidosis. 19. 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 20. Severe mitral, tricuspid regurgitation and systolic congestive heart failure. 21. Left foot cellulitis and left foot diabetic ulceration. 22. Left diabetic foot ulceration and possible gangrene or pre-gangrenous condition of the left foot toes. 23. Left foot second digit amputation. 24. Peripheral vascular disease. 25. Left foot second toe amputation with cyanosis and mummification of the toes and forefoot of the left foot. 26. Severe tibial disease of the lower extremity. 27. Peripheral vascular disease. 28. Anemia of chronic disease. 29. Bilateral popliteal trifurcation and tibial disease. 30. Left anterior hemiblock. 1. Left foot Pseudomonas aeruginosa and group B Streptococcus beta hemolytic left foot cellulitis and diabetic foot ulcer. 2. Severe peripheral vascular disease of the lower extremity. 3. Normocytic anemia with decreasing hemoglobin. 4. Leukocytosis with granulocytosis. 5. Uncontrolled diabetes mellitus with hyperglycemia. 6. Acute kidney injury with underlying chronic kidney disease stage III/IV. 7. Transaminitis. 8. Probably anemia of chronic kidney disease. 9. Acute kidney injury with underlying chronic kidney disease. 10. Metabolic acidosis. 11. Hypertensive diabetic chronic kidney disease. 12. [id number] mitral regurgitation and [id number] tricuspid regurgitation. 13. Dilated cardiomyopathy with ejection fraction of 35%. 14. Sepsis. 15. Hypertension. 16. Gait dysfunction. 17. Deconditioning. 18. Bilateral lower extremity peripheral vascular disease. 19. History of poor compliance and noncompliance. 20. History of hyperuricemia and gout. 1. Left foot cellulitis versus gangrene versus pregangrenous state. 2. Sepsis. 3. Tachycardia. 4. Transient episodic hypotension. 5. Leukocytosis with granulocytosis 6. Elevated erythrocyte sedimentation rate of 122. 7. Normocytic anemia. 8. Chronic kidney disease stage 4 with acute kidney injury. 9. Uncontrolled noninsulin-requiring diabetes mellitus with hyperglycemia and hemoglobin A1c of 8.6. 10. Possible iron-deficiency. 11. Hypertriglyceridemia. 12. Elevated C-reactive protein of greater than 15. 13. Transient lactic acidosis. 14. Transaminitis. 15. Deconditioning. 16. Gait dysfunction. 17. Anemia with decreasing hemoglobin and hematocrit. 18. Metabolic acidosis. 19. Diabetic hypertensive chronic kidney disease. 20. Chronic kidney disease stage 3 without proteinuria. 21. Severe mitral and tricuspid regurgitation. 22. Systolic congestive heart failure. 23. Dilated ischemic cardiomyopathy, etiology undetermined. 1. Left foot cellulitis with diabetic foot disease and possible abscess versus possible osteomyelitis. 2. History of left foot second toe amputation. 3. Hypertension. 4. Tachycardia. 5. Fever. 6. Poor compliance and noncompliance. 7. Leukocytosis with granulocytosis. 8. Normocytic anemia. 9. Elevated erythrocyte sedimentation rate of 122. 10. Chronic kidney disease, stage IV with acute kidney injury. 11. Transient lactic acidosis. 12. History of hyperuricemia. 13. Hypertriglyceridemia. 14. Aortic calcification. 15. Bilateral lower extremity popliteal trifurcation and tibial peripheral vascular disease. 16. Left foot first metatarsophalangeal joint bony destruction and sclerosis, chronic osteomyelitis. 17. 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 18. 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 19. Sinus tachycardia with left anterior hemiblock. 20. Deconditioning. 21. History of poor compliance. 22. Chronic dilated ischemic cardiomyopathy with ejection fraction of . 23. History of hypertension. 24. History of heart failure with reduced ejection fraction of 35%. 25. Pulmonary hypertension with right ventricular systolic pressure of 40 mmHg. 26. Left ventricular global hypokinesis and moderately impaired left ventricular systolic function. 27. Mild aortic regurgitation. 28. Moderate to severe mitral regurgitation. 29. Moderate tricuspid regurgitation. 30. History of constipation. 31. Hypovitaminosis D. 32. History of iron-deficiency anemia. 33. Prostatic hypertrophy. 34. Insulin-requiring diabetes mellitus. 35. Hyperlipidemia. 36. History of peripheral vascular disease. 37. Hyperuricemia. 1. Left foot diabetic foot ulceration versus left foot abscess versus left foot toe osteomyelitis. 2. Tachycardia. 3. Leukocytosis with granulocytosis. 4. Questionable systemic inflammatory response syndrome. 5. Uncontrolled diabetes mellitus with hyperglycemia. 6. Chronic kidney disease stage IV. 7. Mild transaminitis. 8. History of hypertension. 9. Hyperlipidemia. 10. History of prostatic hypertrophy. 11. History of iron-deficiency anemia. 12. History of hypovitaminosis D. 13. History of dilated cardiomyopathy. 14. History of pulmonary hypertension. 15. History of moderate tricuspid regurgitation and mitral regurgitation. 16. Hyperuricemia. PLAN AT THIS TIME: The patient is on planned consultation with Infectious Disease Nephrology, Cardiology, Podiatry Vascular Surgery, Interventional Radiology. At present, the patient is awaiting further intervention by the vascular surgery regarding the left foot care. The patient was seen by Infectious Disease, recommend to continue IV antibiotics. The patient is to be continued on further recommendations by Infectious Disease, Podiatry, Vascular Surgery, Cardiology and Interventional Radiology. The patient will be continued on sliding scale coverage with basal and bolus insulin. The basal insulin will be considered to be adjusted to achieve normoglycemia. The patient will be continued on both pharmacological, non-pharmacological GI and DVT prophylaxis. The patient will be continued on IV antibiotics as per Infectious Disease. The patient will be continued on all the medications as per the MAR, which was reviewed and updated. The patient's family including the patient's son and the daughter has been updated about the patient's decompensated medical status and consequences of the patient's left foot diabetic ulceration and consequences of severe peripheral vascular disease of the lower extremities was explained and discussed with the patient's daughter and the son at length and all questions and concerned were answered. We have also advised the patient's family that the patient most likely require 24 hours care and supervision upon discharge.. The possibilities of below-knee amputation has also been discussed and explained to the patient's family, which they acknowledged understand. At this time. the patient's further management will be dependent upon the patient's clinical condition, hemodynamic status and as per the patient's response to therapeutic intervention as per the patient's diagnostic test results and as per recommendation by all the physicians involved in the care of the patient. ADDENDUM: The patient's lab data is still pending, which will be reviewed when available and further diagnostic therapeutic intervention will be ordered depending upon the patient's today's diagnostic data. Also we are awaiting for vascular surgery further intervention about any further surgical intervention needed for left foot. Though, the patient has been seen and evaluated by Cardiology and the patient has been at least moderate to high risk for any general anesthesia and surgical intervention under general anesthesia, which has also been explained to the patient's family. Dictated and electronically signed, not read. Signing off Niranjan Ling MD. Niranjan Ling MD MTDD
--- NOTE | 2018-11-25 10:24 | CP.PCM.PCO ---
Physician Communication Note - Physician Communication Note Physician Communication Note: transient confusional state sec to transient cerebral hypoperfusion Assessment/Plan - Assessment and Plan (Free Text) Plan: transient confusional state sec to transient cerebral hypoperfusion and hyperglycemic fluctuations. -needs better glycemic control. -keep bp btw 120-130 mm hg systolic, 70-80 mm hhg diastolic. -continue with diabetic care. -avoid sedative medications. thanks. [place] JJ
[2018-11-25 13:15] LABS: BASO # 0.02 K/mm3 (0.0-2.0); BASO % 0.2 % (0.0-3.0); EOS # 0.1 (0.0-0.7); EOS % 0.5 % (1.5-5.0); HEMOGLOBIN 8.9 g/dL (14.0-18.0); LYMPH # 0.9 (1.2-3.4); LYMPH % 6.8 % (22.0-35.0); MEAN CELL VOLUME 93.6 fl (80.0-105.0); MEAN CORPUSCULAR HEMOGLOBIN 31.4 pg (25.0-35.0); MEAN CORPUSCULAR HGB CONC 33.6 g/dl (31.0-37.0); MEAN PLATELET VOLUME 9.9 fl (7.0-11.0); MONO # 1.5 (0.1-0.6); MONO % 11.4 % (1.0-6.0); RBC 2.83 10^6/uL (3.5-6.1); WHITE BLOOD COUNT 13.2 10^3/uL (4.5-11.0)
[2018-11-25] MEDS: POLYETHYLENE GLYCOL 3350 17 GM/Dose PACKET PO SCH ×2 (13:15→18:07)
[2018-11-25] MEDS: MEROPENEM 500 MG in NS 500 MG/50 ML BAG IVPB SCH ×2 (13:15→21:27)
[2018-11-25] MEDS: Multivitamin Vitamin B Complex (Nephro-Vite) Tab PO SCH (13:15)
[2018-11-25 13:24] LABS: INR 1.3; PARTIAL THROMBOPLASTIN TIME 26.3 Seconds (26.9-38.3); PROTHROMBIN TIME 14.7 SECONDS (9.4-12.5)
[2018-11-25 13:30] LABS: ALB/GLOB RATIO 0.9 (1.1-1.8); CALCIUM 8.2 mg/dL (8.4-10.5)
--- NOTE | 2018-11-25 13:44 | CP.PCM.PCO ---
Physician Communication Note - Physician Communication Note Physician Communication Note: s/p left foot amputation great and second toe today
[2018-11-25 14:27] LABS: 23 KD (IGG) BAND Nonreactive
--- NOTE | 2018-11-25 14:48 | CP.PCM.PN ---
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 Hypertension control with meds as ordered. Maintain hemodynamics stable. Avoid hypotension. Patient not on ACEI/ARB due to EMIL and hyperkalemia tendency. consider to add once stable. Monitor Input/Output, daily weights and renal function with basic metabolic panel continue with iron and MVI. PRBC as needed. dose of aransep 40 mcg 11/17/18. K/L ratio remains high at 3.6. suggest hematology eval vit d can be changed to once a month as last level 41 continue with flomax d/c IVF Dose meds/antibiotics for reduced GFR. Avoid fleets enema/magnesium based laxatives. Avoid nephrotoxins/NSAIDs/ iodinated contrast (unless needed emergently) Glycemic control Further work up/management as per primary team Thanks for allowing me to participate in care of your patient. Will follow patient with you. Please call if any Qs. had d/w team and son Dr Anjum Padron Office: [phone] Chief Complaint; Foot ulcer Reason for consult: Acute Kidney Injury HPI: Pt is a 73 M with hx of diabetes Mellitus (30 years), hypertension (years) PVD, Gout CKD 3 with baseline cr 1.8-1.9 presented with complaints of foot ulcer, being managed for cellulitis. seen for EMIL and pt also with PVD Denies OTC/herbal meds or NSAIDs. No recent iodinated contrast exposure. Noted obvious episodes of low BP. pt still not aware about kidney disease in past ROS: noted overnight events Cardiovascular: No chest pain. Pulmonary: No shortness of breath Gastrointestinal: denies abdominal pain No nausea. No vomiting. Genitourinary: No pain while urinating. Denies blood in urine. All other negative except as mentioned in HPI. per son, pt refused to go for outpt follow ups Physical Examination: General Appearance: Comfortable, in no acute respiratory distress, co-operative . Vitals reviewed and noted as below Head; Atraumatic, normocephalic ENT: no ulcers no thrush. Tongue is midline. Oropharynx: no rash or ulcers. EYES: Pupils are equal, round and reactive to light accommodation. Eye muscles and extra-ocular movement intact. Sclera is anicteric. Neck; supple no lymphadenopathy, no thyromegaly or bruit Lungs: Normal respiratory rate/effort. Breath sounds bilateral equal and clear Heart: Incr rate. s1s2 normal. No rub or gallop. Extremities: no edema. No varicose veins. left foot in dressing Neurological: Patient is alert, awake and oriented to person, place and time. No focal deficit. Strength bilateral appropriate and equal Skin: Warm and dry. Normal turgor. No rash. Palpitation: Normal elasticity for age Abdomen: Abdomen is soft. Bowel sounds +. There is no abdominal tenderness, no guarding/rigidity no organomegaly Psych: lack insight and normal affect/mood MSK: no joint tenderness or swelling. Digits and nails normal, no deformity : kidney or bladder not palpable. Labs/imaging reviewed. Past medical history, past surgical history, family history, social history, allergy reviewed and noted as below Family hx: no hx of CKD. Rest non-contributory Phos 3.5 TSAT 13% Vit D 41 PTH 49 LDL 103 kappa/lambda 3.4 uric acid 7.5 renal cyst left side Objective - Vital Signs/Intake and Output Vital Signs (last 24 hours): Temp Pulse Resp BP Pulse Ox 97.8 F 106 H 20 136/80 98 11/25/18 09:30 11/25/18 09:30 11/25/18 09:30 11/25/18 09:30 11/25/18 09:30 Intake and Output: 11/25/18 11/25/18 06:59 18:59 Intake Total 240 180 Output Total 1400 Balance -1160 180 - Medications Medications: Current Medications Acetaminophen (Tylenol 325mg Tab) 650 mg PO Q6H PRN PRN Reason: Pain, moderate (4-7) Last Admin: 11/20/18 18:36 Dose: 650 mg Acetaminophen (Tylenol 650 Mg Supp) 650 mg RC Q6H PRN PRN Reason: TEMP>=99.5F Acetaminophen (Tylenol 325mg Tab) 650 mg PO Q6 PRN PRN Reason: TEMP>=99.5F Last Admin: 11/24/18 18:09 Dose: 650 mg Acetaminophen (Tylenol 650 Mg Supp) 650 mg RC Q6H PRN PRN Reason: TEMP>=99.5F Allopurinol (Zyloprim) 100 mg PO DAILY [facility] Last Admin: 11/24/18 10:28 Dose: 100 mg Aspirin (Ecotrin) 81 mg PO 0800 [facility] Last Admin: 11/25/18 13:13 Dose: Not Given Atorvastatin Calcium (Lipitor) 20 mg PO DIN [facility] Last Admin: 11/24/18 17:11 Dose: 20 mg Cilostazol (Pletal) 50 mg PO BID [facility] Last Admin: 11/24/18 17:11 Dose: 50 mg Darbepoetin Arturo (Aranesp) 40 mcg SC QWK [facility] Last Admin: 11/18/18 11:21 Dose: 40 mcg Dextrose (Dextrose 50% Inj) 0 ml IV STAT PRN; Protocol PRN Reason: Hypoglycemia Protocol Docusate Sodium (Colace) 100 mg PO TID [facility] Last Admin: 11/25/18 13:12 Dose: Not Given Ergocalciferol (Drisdol 50,000 Intl Units Cap) 1 cap PO ONCE ONE Stop: 11/28/18 10:01 Ferrous Sulfate (Feosol) 324 mg PO BID [facility] Last Admin: 11/25/18 10:00 Dose: Not Given Meropenem/Sodium Chloride (Merrem Iv 500 Mg/Ns 50 Ml) 500 mg in 50 mls @ 100 mls/hr IVPB Q12 [facility]; Protocol Last Admin: 11/25/18 13:15 Dose: Not Given Dextrose (Dextrose 5% In Water 1000 Ml) 1,000 mls @ 0 mls/hr IV .Q0M PRN; Protocol PRN Reason: Hypoglycemia Protocol Sodium Chloride (Sodium Chloride 0.9%) 1,000 mls @ 60 mls/hr IV .[id number] [facility] Stop: 11/25/18 15:16 Last Admin: 11/25/18 02:01 Dose: 60 mls/hr Insulin Human Lispro (Humalog Med) 0 units SC AC [facility]; Protocol Last Admin: 11/25/18 07:59 Dose: Not Given Insulin Human NPH (Humulin N) 20 units SC [facility] Last Admin: 11/25/18 07:59 Dose: Not Given Metoprolol Tartrate (Lopressor) 25 mg PO Q8H [facility] Last Admin: 11/25/18 06:07 Dose: 25 mg Morphine Sulfate (Morphine) 2 mg IVP Q4H PRN PRN Reason: Pain, severe (8-10) Ondansetron HCl (Zofran Inj) 4 mg IVP Q4H PRN PRN Reason: Nausea/Vomiting Ondansetron HCl (Zofran Inj) 4 mg IVP Q4H PRN PRN Reason: Nausea/Vomiting Ondansetron HCl (Zofran Inj) 4 mg IVP ONCE PRN PRN Reason: Nausea/Vomiting Oxycodone/Acetaminophen (Percocet 5/325 Mg Tab) 1 tab PO Q4H PRN PRN Reason: Pain, moderate (4-7) Stop: 11/28/18 09:00 Pantoprazole Sodium (Protonix Ec Tab) 40 mg PO 0600 [facility] Last Admin: 11/25/18 06:07 Dose: 40 mg Polyethylene Glycol (Miralax) 17 gm PO BID [facility] Last Admin: 11/25/18 13:15 Dose: Not Given Sodium Hypochlorite (Dakins Solution 0.25%) 20 ml TOP DAILY [facility] Tamsulosin HCl (Flomax) 0.4 mg PO 1830 [facility] Last Admin: 11/23/18 17:09 Dose: 0.4 mg Vitamin B Complex/Vit C/Folic Acid (Nephro-Sumit) 1 tab PO 0800 [facility] Last Admin: 11/25/18 13:15 Dose: Not Given - Labs Labs: 11/25/18 13:05 11/25/18 13:05 PT 14.7 SECONDS (9.4-12.5) H 11/25/18 13:05 INR 1.30 11/25/18 13:05 APTT 26.3 Seconds (26.9-38.3) L 11/25/18 13:05
[2018-11-25] MEDS: Morphine 2 mg/ml ISec IVP PRN (15:10)
[2018-11-25] MEDS: Cilostazol 50 mg Tab UD PO SCH ×2 (15:11→18:06)
[2018-11-25] MEDS: Darbepoetin Alfa 40 mcg/ml Inj SC SCH (23:20)
--- NOTE | 2018-11-26 01:03 | PN ---
DATE: 11/25/2018 SUBJECTIVE: Patient is in bed, in no acute distress. This morning was seen in room 535, bed 2. PHYSICAL EXAMINATION VITAL SIGNS: Temperature is 99, T max is 100.5, blood pressure is 112/50, respiratory rate of 20. HEENT: Unremarkable. NECK: Supple. LUNGS: Have decreased breath sounds. LABORATORY DATA: Reveals a white count of 13,000. Chemistries are noted. Creatinine is 1.8. Urinalysis is noted. Serology is noted. Microbiology, bacterial organisms are noted. REVIEW OF ORDERS: Reveal the patient to be on meropenem. ASSESSMENT AND PLAN: A 73-year-old man who was seen earlier today in room 535, bed 2 with sepsis, left foot cellulitis with Pseudomonas and group B Streptococcus on meropenem. Patient with hypertension. Patient is for operating room today with debridement of left foot possible toe amputation of the left third and fourth toes, nails and amputation of the left great toe and second metatarsal. We will continue the present course. Tai Landaverde MD
--- NOTE | 2018-11-26 04:44 | OP ---
PROCEDURE DATE: 11/25/2018 PREOPERATIVE DIAGNOSES: Chronic left foot wound and osteomyelitis. POSTOPERATIVE DIAGNOSES: Chronic left foot wound and osteomyelitis. OPERATION PERFORMED: Left great toe amputation, second metatarsal amputation, toenail removal of third and fourth toe, wound debridement. SURGEON: Kain Sosa MD CAREER DEVELOPMENT COORDINATOR/TEACHER: Malinda Strickland DO, PGY-3 ANESTHESIA: General LMA. ANESTHESIOLOGIST: Dr. Doshi. INDICATIONS FOR PROCEDURE: This is a 73-year-old gentleman who has had a chronic left foot wound, was recently diagnosed with osteomyelitis, confirmed by MRI. Risks and benefits of the surgery were discussed with the patient and family and it was decided to go ahead with surgical debridement with possible amputation. DESCRIPTION OF PROCEDURE: After consent was obtained, the patient was taken to the operating room, placed on the operating table, and placed under general LMA anesthesia. The patient was then prepped and draped in the usual sterile fashion, at which time a timeout was performed confirming correct patient, placement, site, and procedure. Superficial debridement of the dried skin was performed to the foot to give a clean surgical surface. At which time, a #15 blade was used to cut the skin edge of the clearly demarcated necrotic area surrounding the great toe. The incision was carried down through the skin and subcutaneous fat to the bone. A very large abscess pocket was encountered which was cultured and sent for micro. After removing the subcutaneous tissue and tendons from the left great toe and metatarsal, the straight bone cutter was then used to remove the left great metatarsal which was sent for pathology. The abscess cavity was explored using a Katty clamp and was noted to travel proximally roughly 4 cm up the foot towards the ankle. The second toe metatarsal at that point was noted to be soft and necrotic. The decision was then made to remove second metatarsal since the patient had previously undergone a second toe amputation in the past. Again, the skin and subcutaneous tissue were dissected off the second toe metatarsal allowing access to the bone underneath which was then cut using the straight bone scissors. The wound was then irrigated copiously with Bacitracin impregnated irrigation. The subcutaneous tissues were also debrided of necrotic material and cleaned using Versajet. The surrounding soft tissue of the foot was bluntly debrided using forceps to the point of healthy tissue. The toenails of the third and fourth digit were removed during the debridement. At this point, the wound was packed with a lap pad to assess and achieve homeostasis. Once homeostasis was confirmed, the decision was made to pack the open wound with Betadine-soaked 1 inch iodoform. The abscess cavity and open amputation site were tightly packed and the iodoform was then wound around the remaining toes to prevent skin maceration. Betadine-soaked Kerlix was applied over the dorsal foot wound. The entire foot was then wrapped in dry Kerlix and Kenn wrap. The patient toelrated the procedure well, was extubated in the OR and taken to PACU in stable condition. Please note this is a multistep process with amputation of the great toe occurring today and a future transmetatarsal occurring within the next week after healthy granulation tissue has formed. SPECIMENS: left great toe and abscess culture Malinda Strickland DO Kain Sosa MD KESHAWN
[2018-11-26] MEDS: Pantoprazole 40 mg EC Tab PO SCH (06:09)
--- NOTE | 2018-11-26 07:52 | CP.PCM.PN ---
<Evans Waterman - Last Filed: 11/26/18 19:08> Subjective - Date & Time of Evaluation Date of Evaluation: 11/26/18 Time of Evaluation: 07:28 - Subjective Subjective: Evans Waterman PGY2 IM Progress Note for Dr. Ling Patient was seen and examined at bedside. He states that he feels well and denies any severe pain in his left foot, cough or fevers/chills. Per nursing staff, patient had low grade fevers overnight. Encouraged to use incentive spirometer. Objective - Vital Signs/Intake and Output Vital Signs (last 24 hours): Temp Pulse Resp BP Pulse Ox 99.4 F 104 H 20 133/71 95 11/25/18 21:32 11/26/18 06:08 11/25/18 21:32 11/26/18 06:08 11/25/18 14:00 Intake and Output: 11/26/18 11/26/18 06:59 18:59 Intake Total 710 Output Total 1600 Balance -890 - Medications Medications: Current Medications Acetaminophen (Tylenol 325mg Tab) 650 mg PO Q6H PRN PRN Reason: Pain, moderate (4-7) Last Admin: 11/20/18 18:36 Dose: 650 mg Acetaminophen (Tylenol 650 Mg Supp) 650 mg RC Q6H PRN PRN Reason: TEMP>=99.5F Acetaminophen (Tylenol 325mg Tab) 650 mg PO Q6 PRN PRN Reason: TEMP>=99.5F Last Admin: 11/25/18 18:05 Dose: 650 mg Acetaminophen (Tylenol 650 Mg Supp) 650 mg RC Q6H PRN PRN Reason: TEMP>=99.5F Allopurinol (Zyloprim) 100 mg PO DAILY [facility] Last Admin: 11/25/18 15:09 Dose: 100 mg Aspirin (Ecotrin) 81 mg PO 0800 [facility] Last Admin: 11/25/18 13:13 Dose: Not Given Atorvastatin Calcium (Lipitor) 20 mg PO DIN [facility] Last Admin: 11/25/18 18:06 Dose: 20 mg Cilostazol (Pletal) 50 mg PO BID [facility] Last Admin: 11/25/18 18:06 Dose: 50 mg Darbepoetin Arturo (Aranesp) 40 mcg SC QWK [facility] Last Admin: 11/25/18 23:20 Dose: 40 mcg Dextrose (Dextrose 50% Inj) 0 ml IV STAT PRN; Protocol PRN Reason: Hypoglycemia Protocol Docusate Sodium (Colace) 100 mg PO TID [facility] Last Admin: 11/25/18 18:06 Dose: 100 mg Ergocalciferol (Drisdol 50,000 Intl Units Cap) 1 cap PO ONCE ONE Stop: 11/28/18 10:01 Ferrous Sulfate (Feosol) 324 mg PO BID [facility] Last Admin: 11/25/18 18:06 Dose: 324 mg Meropenem/Sodium Chloride (Merrem Iv 500 Mg/Ns 50 Ml) 500 mg in 50 mls @ 100 mls/hr IVPB Q12 [facility]; Protocol Last Admin: 11/25/18 21:27 Dose: 100 mls/hr Dextrose (Dextrose 5% In Water 1000 Ml) 1,000 mls @ 0 mls/hr IV .Q0M PRN; Protocol PRN Reason: Hypoglycemia Protocol Insulin Human Lispro (Humalog Med) 0 units SC AC [facility]; Protocol Last Admin: 11/25/18 18:07 Dose: 5 units Insulin Human NPH (Humulin N) 25 units SC [facility] Metoprolol Tartrate (Lopressor) 25 mg PO Q8H [facility] Last Admin: 11/26/18 06:08 Dose: 25 mg Morphine Sulfate (Morphine) 2 mg IVP Q4H PRN PRN Reason: Pain, severe (8-10) Last Admin: 11/25/18 15:10 Dose: 2 mg Ondansetron HCl (Zofran Inj) 4 mg IVP Q4H PRN PRN Reason: Nausea/Vomiting Ondansetron HCl (Zofran Inj) 4 mg IVP Q4H PRN PRN Reason: Nausea/Vomiting Ondansetron HCl (Zofran Inj) 4 mg IVP ONCE PRN PRN Reason: Nausea/Vomiting Oxycodone/Acetaminophen (Percocet 5/325 Mg Tab) 1 tab PO Q4H PRN PRN Reason: Pain, moderate (4-7) Stop: 11/28/18 09:00 Pantoprazole Sodium (Protonix Ec Tab) 40 mg PO 0600 [facility] Last Admin: 11/26/18 06:09 Dose: 40 mg Polyethylene Glycol (Miralax) 17 gm PO BID [facility] Last Admin: 11/25/18 18:07 Dose: Not Given Sodium Hypochlorite (Dakins Solution 0.25%) 20 ml TOP DAILY [facility] Tamsulosin HCl (Flomax) 0.4 mg PO 1830 [facility] Last Admin: 11/25/18 20:27 Dose: Not Given Vitamin B Complex/Vit C/Folic Acid (Nephro-Sumit) 1 tab PO 0800 [facility] Last Admin: 11/25/18 13:15 Dose: Not Given - Labs Labs: 11/25/18 13:05 11/25/18 13:05 PT 14.7 SECONDS (9.4-12.5) H 11/25/18 13:05 INR 1.30 11/25/18 13:05 APTT 26.3 Seconds (26.9-38.3) L 11/25/18 13:05 - Constitutional Appears: Well, Non-toxic, No Acute Distress - Head Exam Head Exam: ATRAUMATIC, NORMAL INSPECTION - Eye Exam Eye Exam: Normal appearance, PERRL - ENT Exam ENT Exam: Mucous Membranes Moist, Normal Exam - Neck Exam Neck Exam: Full ROM, Normal Inspection - Respiratory Exam Respiratory Exam: NORMAL BREATHING PATTERN. absent: Respiratory Distress - Cardiovascular Exam Cardiovascular Exam: Tachycardia, +S1, +S2 - GI/Abdominal Exam GI & Abdominal Exam: Soft. absent: Distended, Tenderness - Extremities Exam Extremities Exam: absent: Normal Inspection Additional comments: poor right peripheral pulses absent LLE DP/PT pulses left foot post-op gauze dressing applied - Neurological Exam Neurological Exam: Awake. absent: Oriented x3 - Skin Skin Exam: Normal Color, Warm Additional comments: foot changes as above Assessment and Plan - Assessment and Plan (Free Text) Assessment: 73 year old male with a PMH of PAD s/p 2nd left toe amputation (09/2017), DM2, CHFrEF, gout and arthritis who presented for left foot pain x2 months, but recently worsening. Patient found to have severe PAD, cellulitis of left foot due to pseudomonas w/ gangrenous changes. MRI showed no osteomyelitis changes. IR recommended against angioplasty due to low chance of successful intervention. Podiatry following with daily foot care. Patient is POD1 for left great toe and 2nd metatarsal amputation, toenail removal for 3rd and 4th digits, and wound debridement. Plan: - incentive spirometer ordered, patient encouraged to use it - Surgery team following, plan for transmetatarsal amputation within next week - Podiatry team following with foot care - ID team consulted, recs appreciated - Neurology, Nephrology and Cardiology consulted for ongoing medical conditions, recs appreciated - cont Abx per ID recs, on Meropenem - restart home meds - cont cilostazol - cont ISS and accuchecks ACHS - tylenol PRN fevers - SCDs for DVT ppx; heparin for DVT ppx - PPI for GI ppx - consistent carb diet - further recs per Dr. Ling Case was reviewed with Dr. Ling <Akshat Lingm U - Last Filed: 12/13/18 14:27> Objective - Vital Signs/Intake and Output Vital Signs (last 24 hours): Temp Pulse Resp BP Pulse Ox 98.3 F 94 H 17 93/57 L 99 12/12/18 14:00 12/12/18 14:00 12/12/18 14:00 12/12/18 14:00 12/12/18 14:00 - Medications Medications: Current Medications Acetaminophen (Tylenol 325mg Tab) 650 mg PO Q6 PRN PRN Reason: TEMP>=99.5F Last Admin: 12/12/18 22:42 Dose: 650 mg Acetaminophen (Tylenol 650 Mg Supp) 650 mg RC Q6H PRN PRN Reason: TEMP>=99.5F Dextrose (Dextrose 50% Inj) 0 ml IV STAT PRN; Protocol PRN Reason: Hypoglycemia Protocol Docusate Sodium (Colace) 100 mg PO TID [facility] Last Admin: 12/13/18 10:27 Dose: 100 mg Ferrous Gluconate (Fergon) 324 mg PO TID [facility] Last Admin: 12/13/18 10:28 Dose: 324 mg Heparin Sodium (Porcine) (Heparin) 5,000 units SC Q8 [facility]; Protocol Last Admin: 12/13/18 05:03 Dose: 5,000 units Dextrose (Dextrose 5% In Water 1000 Ml) 1,000 mls @ 0 mls/hr IV .Q0M PRN; Protocol PRN Reason: Hypoglycemia Protocol Insulin Human Lispro (Humalog Med) 0 units SC AC [facility]; Protocol Last Admin: 12/13/18 12:48 Dose: 5 units Insulin Human NPH (Humulin N) 17 units SC [facility] Last Admin: 12/13/18 10:28 Dose: 17 unit Metoclopramide HCl (Reglan) 10 mg IV ONCE PRN PRN Reason: Nausea/Vomiting Midodrine (Proamatine) 10 mg PO TID [facility] Last Admin: 12/13/18 10:28 Dose: 10 mg Nystatin (Nystop Topical Powder) 0 gm TOP BID [facility] Last Admin: 12/13/18 10:31 Dose: 1 appl Ondansetron HCl (Zofran Inj) 4 mg IVP Q4H PRN PRN Reason: Nausea/Vomiting Pantoprazole Sodium (Protonix Ec Tab) 40 mg PO 0600 [facility] Last Admin: 12/13/18 05:03 Dose: 40 mg Polyethylene Glycol (Miralax) 17 gm PO BID [facility] Last Admin: 12/13/18 10:28 Dose: 17 gm Tamsulosin HCl (Flomax) 0.4 mg PO DAILY [facility] Last Admin: 12/13/18 10:28 Dose: 0.4 mg Vitamin B Complex/Vit C/Folic Acid (Nephro-Sumit) 1 tab PO 0800 [facility] Last Admin: 12/13/18 10:28 Dose: 1 tab - Labs Labs: 12/13/18 07:00 12/13/18 07:00 PT 12.6 SECONDS (9.4-12.5) H 12/10/18 13:10 INR 1.12 12/10/18 13:10 APTT 30.3 Seconds (26.9-38.3) 12/10/18 13:10 Attending/Attestation - Attestation I have personally seen and examined this patient.: Yes I have fully participated in the care of the patient.: Yes I have reviewed all pertinent clinical information, including history, physical exam and plan: Yes Notes (Text): Please see/read my dictated notes.
[2018-11-26 08:03] LABS: BASO # 0.02 K/mm3 (0.0-2.0); BASO % 0.1 % (0.0-3.0); EOS # 0.2 (0.0-0.7); EOS % 1.4 % (1.5-5.0); HEMOGLOBIN 9.8 g/dL (14.0-18.0); LYMPH # 0.8 (1.2-3.4); LYMPH % 5.5 % (22.0-35.0); MEAN CELL VOLUME 92.7 fl (80.0-105.0); MEAN CORPUSCULAR HEMOGLOBIN 31.1 pg (25.0-35.0); MEAN CORPUSCULAR HGB CONC 33.6 g/dl (31.0-37.0); MEAN PLATELET VOLUME 9.8 fl (7.0-11.0); MONO # 1.6 (0.1-0.6); MONO % 11.6 % (1.0-6.0); RBC 3.15 10^6/uL (3.5-6.1); RED CELL DISTRIBUTION WIDTH 16.4 % (11.5-14.5); WHITE BLOOD COUNT 13.9 10^3/uL (4.5-11.0)
[2018-11-26 08:05] LABS: ALB/GLOB RATIO 0.9 (1.1-1.8); ALBUMIN 3.2 g/dL (3.0-4.8); BILIRUBIN,DIRECT 0.3 mg/dL (0.0-0.4); CALCIUM 8.5 mg/dL (8.4-10.5)
[2018-11-26] MEDS: Insulin Human NPH 1 UNITS/0.01 ML SC SCH ×3 (08:37→17:44)
[2018-11-26] MEDS: Insulin Lispro (humaLOG) MEDIUM Coverage SC SCH ×3 (08:38→17:42)
[2018-11-26] MEDS: Multivitamin Vitamin B Complex (Nephro-Vite) Tab PO SCH (08:38)
--- NOTE | 2018-11-26 09:13 | CP.PCM.PN ---
<Kirby Aquino - Last Filed: 11/26/18 09:09> Subjective - Date & Time of Evaluation Date of Evaluation: 11/26/18 Time of Evaluation: 06:55 - Subjective Subjective: General surgery progress note for Dr. Ian Aquino, PGY1 Patient seen and examined at bedside this morning. No acute events reported overnight. S/p debridement of left foot wound, left great toe ray amputation, 2nd metatarsal amputation, and drainage of abscess. S/p 1 unit PRBC yesterday. Patient denies fevers, chills, SOB, CP and leg pain. Objective - Vital Signs/Intake and Output Vital Signs (last 24 hours): Temp Pulse Resp BP Pulse Ox 98.6 F 104 H 18 133/71 97 11/26/18 06:00 11/26/18 06:08 11/26/18 06:00 11/26/18 06:08 11/26/18 06:00 Intake and Output: 11/26/18 11/26/18 06:59 18:59 Intake Total 710 Output Total 1600 Balance -890 - Medications Medications: Current Medications Acetaminophen (Tylenol 325mg Tab) 650 mg PO Q6H PRN PRN Reason: Pain, moderate (4-7) Last Admin: 11/20/18 18:36 Dose: 650 mg Acetaminophen (Tylenol 650 Mg Supp) 650 mg RC Q6H PRN PRN Reason: TEMP>=99.5F Acetaminophen (Tylenol 325mg Tab) 650 mg PO Q6 PRN PRN Reason: TEMP>=99.5F Last Admin: 11/25/18 18:05 Dose: 650 mg Acetaminophen (Tylenol 650 Mg Supp) 650 mg RC Q6H PRN PRN Reason: TEMP>=99.5F Allopurinol (Zyloprim) 100 mg PO DAILY [facility] Last Admin: 11/25/18 15:09 Dose: 100 mg Aspirin (Ecotrin) 81 mg PO 0800 [facility] Last Admin: 11/26/18 08:38 Dose: 81 mg Atorvastatin Calcium (Lipitor) 20 mg PO DIN [facility] Last Admin: 11/25/18 18:06 Dose: 20 mg Cilostazol (Pletal) 50 mg PO BID [facility] Last Admin: 11/25/18 18:06 Dose: 50 mg Darbepoetin Arturo (Aranesp) 40 mcg SC QWK [facility] Last Admin: 11/25/18 23:20 Dose: 40 mcg Dextrose (Dextrose 50% Inj) 0 ml IV STAT PRN; Protocol PRN Reason: Hypoglycemia Protocol Docusate Sodium (Colace) 100 mg PO TID [facility] Last Admin: 11/25/18 18:06 Dose: 100 mg Ergocalciferol (Drisdol 50,000 Intl Units Cap) 1 cap PO ONCE ONE Stop: 11/28/18 10:01 Ferrous Sulfate (Feosol) 324 mg PO BID [facility] Last Admin: 11/25/18 18:06 Dose: 324 mg Meropenem/Sodium Chloride (Merrem Iv 500 Mg/Ns 50 Ml) 500 mg in 50 mls @ 100 mls/hr IVPB Q12 [facility]; Protocol Last Admin: 11/25/18 21:27 Dose: 100 mls/hr Dextrose (Dextrose 5% In Water 1000 Ml) 1,000 mls @ 0 mls/hr IV .Q0M PRN; Protocol PRN Reason: Hypoglycemia Protocol Insulin Human Lispro (Humalog Med) 0 units SC AC [facility]; Protocol Last Admin: 11/26/18 08:38 Dose: 3 units Insulin Human NPH (Humulin N) 25 units SC ACBD [facility] Last Admin: 11/26/18 08:37 Dose: 25 unit Metoprolol Tartrate (Lopressor) 25 mg PO Q8H [facility] Last Admin: 11/26/18 06:08 Dose: 25 mg Morphine Sulfate (Morphine) 2 mg IVP Q4H PRN PRN Reason: Pain, severe (8-10) Last Admin: 11/25/18 15:10 Dose: 2 mg Ondansetron HCl (Zofran Inj) 4 mg IVP Q4H PRN PRN Reason: Nausea/Vomiting Ondansetron HCl (Zofran Inj) 4 mg IVP Q4H PRN PRN Reason: Nausea/Vomiting Ondansetron HCl (Zofran Inj) 4 mg IVP ONCE PRN PRN Reason: Nausea/Vomiting Oxycodone/Acetaminophen (Percocet 5/325 Mg Tab) 1 tab PO Q4H PRN PRN Reason: Pain, moderate (4-7) Stop: 11/28/18 09:00 Pantoprazole Sodium (Protonix Ec Tab) 40 mg PO 0600 [facility] Last Admin: 11/26/18 06:09 Dose: 40 mg Polyethylene Glycol (Miralax) 17 gm PO BID [facility] Last Admin: 11/25/18 18:07 Dose: Not Given Sodium Hypochlorite (Dakins Solution 0.25%) 20 ml TOP DAILY [facility] Tamsulosin HCl (Flomax) 0.4 mg PO 1830 [facility] Last Admin: 11/25/18 20:27 Dose: Not Given Vitamin B Complex/Vit C/Folic Acid (Nephro-Sumit) 1 tab PO 0800 [facility] Last Admin: 11/26/18 08:38 Dose: 1 tab - Labs Labs: 11/26/18 07:30 11/26/18 07:30 PT 14.7 SECONDS (9.4-12.5) H 11/25/18 13:05 INR 1.30 11/25/18 13:05 APTT 26.3 Seconds (26.9-38.3) L 11/25/18 13:05 - Constitutional Appears: Non-toxic, No Acute Distress - Head Exam Head Exam: ATRAUMATIC, NORMAL INSPECTION - Eye Exam Eye Exam: EOMI, Normal appearance - ENT Exam ENT Exam: Mucous Membranes Moist, Normal Exam - Neck Exam Neck exam: Positive for: Normal Inspection - Respiratory Exam Respiratory Exam: NORMAL BREATHING PATTERN, no respiratory distress - Cardiovascular Exam Cardiovascular Exam: No tachycardia, +S1, +S2 - GI/Abdominal Exam GI & Abdominal Exam: Soft. absent: Distended, Tenderness, rebound, guarding - Extremities Exam Extremities exam: Left foot with dressing in place. Dressing is clean and dry with minimal drainage noted DP non palpable B/L. Femoral pulses +2 B/L - Neurological Exam Additional comments: Awake, Alert to person and place - Skin Skin Exam: Dry, Intact, Normal Color, Warm Assessment and Plan - Assessment and Plan (Free Text) Assessment: This is a 73 year old male with PMH significant for PAD, CKD and DM presenting to the hospital for chronic non healing left foot ulcer. Plan: -POD #1 of left great toe ray amputation, 2nd metatarsal amputation -plan for OR next week for left leg wound debridement and TMA -wound care dressing -Further recommendations as per Dr. Sosa <Kain Sosa - Last Filed: 12/09/18 18:44> Objective - Vital Signs/Intake and Output Vital Signs (last 24 hours): Temp Pulse Resp BP Pulse Ox 98.4 F 94 H 20 97/62 L 100 12/09/18 13:44 12/09/18 13:44 12/09/18 13:44 12/09/18 13:44 12/09/18 13:44 Intake and Output: 12/09/18 12/09/18 06:59 18:59 Intake Total 480 Output Total 300 Balance 180 - Medications Medications: Current Medications Acetaminophen (Tylenol 325mg Tab) 650 mg PO Q6H PRN PRN Reason: Pain, Mild (1-3) Last Admin: 12/08/18 09:31 Dose: 650 mg Acetaminophen (Tylenol 325mg Tab) 650 mg PO Q6 PRN PRN Reason: Fever >100.4 F Dextrose (Dextrose 50% Inj) 0 ml IV STAT PRN; Protocol PRN Reason: Hypoglycemia Protocol Dextrose (Dextrose 50% Inj) 0 ml IV STAT PRN; Protocol PRN Reason: Hypoglycemia Protocol Docusate Sodium (Colace) 100 mg PO TID [facility] Last Admin: 12/09/18 18:14 Dose: 100 mg Famotidine (Pepcid) 20 mg PO 1000,2200 [facility] Stop: 12/11/18 10:01 Last Admin: 12/09/18 10:50 Dose: 20 mg Ferrous Gluconate (Fergon) 324 mg PO TID [facility] Last Admin: 12/09/18 18:14 Dose: 324 mg Heparin Sodium (Porcine) (Heparin) 5,000 units SC Q8 [facility]; Protocol Last Admin: 12/09/18 15:31 Dose: 5,000 units Dextrose (Dextrose 5% In Water 1000 Ml) 1,000 mls @ 0 mls/hr IV .Q0M PRN; Protocol PRN Reason: Hypoglycemia Protocol Meropenem/Sodium Chloride (Merrem Iv 500 Mg/Ns 50 Ml) 500 mg in 50 mls @ 100 mls/hr IVPB Q12 [facility]; Protocol Last Admin: 12/09/18 10:51 Dose: 100 mls/hr Dextrose (Dextrose 5% In Water 1000 Ml) 1,000 mls @ 0 mls/hr IV .Q0M PRN; Protocol PRN Reason: Hypoglycemia Protocol Insulin Human Lispro (Humalog Med) 0 units SC AC [facility]; Protocol Last Admin: 12/09/18 17:00 Dose: 1 units Insulin Human NPH (Humulin N) 17 units SC ACBD [facility] Last Admin: 12/09/18 17:03 Dose: 17 unit Midodrine (Proamatine) 5 mg PO TID [facility] Last Admin: 12/09/18 18:14 Dose: 5 mg Nystatin (Nystop Topical Powder) 0 gm TOP BID [facility] Last Admin: 12/09/18 18:17 Dose: 1 appl Ondansetron HCl (Zofran Inj) 4 mg IVP Q4H PRN PRN Reason: Nausea/Vomiting Pantoprazole Sodium (Protonix Ec Tab) 40 mg PO 0600 [facility] Last Admin: 12/09/18 05:37 Dose: 40 mg Polyethylene Glycol (Miralax) 17 gm PO BID [facility] Last Admin: 12/09/18 18:16 Dose: Not Given Sodium Hypochlorite (Dakins Solution 0.25%) 20 ml TOP DAILY [facility] Last Admin: 12/09/18 10:47 Dose: 1 applic Tamsulosin HCl (Flomax) 0.4 mg PO DAILY [facility] Last Admin: 12/09/18 10:49 Dose: 0.4 mg Vitamin B Complex/Vit C/Folic Acid (Nephro-Sumit) 1 tab PO 0800 [facility] Last Admin: 12/09/18 08:17 Dose: 1 tab - Labs Labs: 12/09/18 07:30 12/09/18 07:30 PT 14.7 SECONDS (9.4-12.5) H 11/25/18 13:05 INR 1.30 11/25/18 13:05 APTT 26.3 Seconds (26.9-38.3) L 11/25/18 13:05 Assessment and Plan - Assessment and Plan (Free Text) Assessment: Patient was seen, evaluated and examined by me at the bedside. I agree with assessment and plan as stated in the resident's note.
[2018-11-26] MEDS ORDERED: Povidone Iodine Topical 10% Sol TOP ONE (09:40)
--- NOTE | 2018-11-26 10:08 | CP.PCM.PCO ---
Physician Communication Note - Physician Communication Note Physician Communication Note: return to OR next week, continue antibiotics as per ID
[2018-11-26] MEDS: POLYETHYLENE GLYCOL 3350 17 GM/Dose PACKET PO SCH ×2 (10:36→17:45)
[2018-11-26] MEDS: Cilostazol 50 mg Tab UD PO SCH ×2 (10:37→17:46)
[2018-11-26] MEDS: Morphine 2 mg/ml ISec IVP PRN (11:11)
[2018-11-26] MEDS: MEROPENEM 500 MG in NS 500 MG/50 ML BAG IVPB SCH ×2 (12:35→22:39)
--- NOTE | 2018-11-26 13:31 | PN ---
DATE: 11/26/2018 SUBJECTIVE: The patient is seen lying in the bed in room 575, bed 2. The patient is alert, awake, responsive, appears to be confused and disoriented. Does not know year, date, month. OBJECTIVE: VITAL SIGNS: T-max is 100.5, heart rate is 100, 88, 107, 104, blood pressure 133/71, 120/60, 120/63, respiration 20, O2 sat is 95%-98%. HEENT: Head examination normocephalic, atraumatic. HEENT examination shows pinkish pale conjunctivae. Anicteric sclerae. No oropharyngeal lesion. NECK: No neck rigidity. CHEST: Kyphosis. LUNGS: Shows no audible crackle, rales or wheezing. CARDIOVASCULAR: S1 and S2, regular rhythm. Positive systolic murmur in left sternal border, right second intercostal space, left second intercostal space. ABDOMEN: Soft, positive bowel sound, no palpable hepatosplenomegaly. GENITALIA: Male. RECTAL: Deferred. EXTREMITIES: Shows positive new dressing of the left foot noted. No pitting edema noted. MUSCULOSKELETAL: Shows a body mass index of 26. NEUROLOGIC: The patient is alert, awake, responsive, is able to move upper and lower extremities without assistance. Gait examination is not tested. DIAGNOSTICS: From November 26, WBC is 13.9, hemoglobin/hematocrit 9.8/29.2, platelets is 363, granulocytes 81% segs. Sodium 136, potassium 4.0, chloride 100, CO2 of 26, anion gap 14, BUN 32, creatinine 1.8, GFR 37, glucose 255, 255, 201, 294, 284, 257, calcium 8.5, phosphorus 3.3, magnesium 2.1, total bili 1.4, rest of the LFTs are within normal limit. Stool occult blood negative. RPR, Lyme, IgM, IgG negative. Repeat blood cultures, urine cultures negative. The patient received total of 3 units of PRBC transfusion. IMPRESSION: 1. Status post left foot great toe amputation and second metatarsal amputation and third and fourth digit toenail removal and left foot wound debridement, postop day #1. 2. Chronic nonhealing left foot diabetic foot ulceration and possible gangrene. 3. Fever. 4. Tachycardia. 5. Hypotension. 6. Persistent refractory leukocytosis with granulocytosis. 7. Normocytic anemia, status post packed red blood cell transfusion x3. 8. Uncontrolled diabetes mellitus with hyperglycemia and elevated hemoglobin A1c of 8.6. 9. Hyper fructosemia. 10. Lactic acidosis. 11. Hyperuricemia. 12. Possible iron-deficiency. 13. Elevated C-reactive protein of greater than 15. 14. Hypertriglyceridemia. 15. Proteinuria. 16. Microscopic hematuria. 17. Bacteriuria. 18. Elevated total kappa lambda ratio. 19. Pseudomonas aeruginosa and beta hemolytic strep group B left foot diabetic foot ulceration. 20. Status post packed red blood cell transfusion x3. 21. Left foot cellulitis. 22. Chronic microvascular ischemic disease of the brain and cerebral cortical atrophy of the brain. 23. Sepsis with Pseudomonas aeruginosa and group B Streptococcus beta hemolytic Streptococcus left foot diabetic foot ulcerations and cellulitis. 24. Kidney injury with underlying chronic kidney disease. 25. Hypertensive diabetic chronic kidney disease. 26. Stage III chronic kidney disease secondary to hypertension and vasculopathy. 27. Anemia. 28. Monoclonal gammopathy of unknown significance. 29. Transient and episodic confusion and disorientation, probably secondary to transient cerebral hypoperfusion and uncontrolled diabetes mellitus. 30. Sepsis. 1. Group B Streptococcus and Pseudomonas aeruginosa, left foot diabetic foot ulceration and gangrene and cellulitis. 2. History of chronic osteomyelitis of the left foot. 3. High-grade fever. 4. Questionable sepsis versus systemic inflammatory response syndrome. 5. Tachycardia. 6 Hypotension. 7. Questionable and possible encephalopathy versus toxic metabolic encephalopathy with episodic confusion and disorientation. 8. Type 2 diabetes mellitus. 9. Anemia of chronic disease. 10. Status post packed red blood cell transfusion x2. 11. Gait dysfunction. 12. Deconditioning. 13. Status post left foot big toe amputation,2nd metatarsal amputation, wound debridement and 3rd and 4th toe nail removal. 14. Persistent refractory leukocytosis with granulocytosis 15. Normocytic anemia. 16. Uncontrolled type 2 diabetes mellitus with hyperglycemia. 17. Microvascular ischemic disease of the brain. 18. Cerebral cortical atrophy of the brain. 19. Gait dysfunction with nonweightbearing status of the left foot. 20. Severe peripheral vascular disease of the lower extremity with severe bilateral tibial and distal lower extremities severe occlusive disease with ankle-brachial index is of less than 1. 21. History of hypertension. 22. History of gout and hyperuricemia. 23. History of gouty arthritis. 24. Dilated cardiomyopathy with ejection fraction of 35% with severe mitral and tricuspid regurgitation. 25. Acute kidney injury with underlying chronic kidney disease stage III. 26. Proteinuria and microscopic hematuria. 1. High-grade fever and new fever. 2. Tachycardia. 3. Hypotension. 4. Questionable sepsis versus systemic inflammatory response syndrome with high-grade fever, tachycardia, hypotension. 5. Persistent refractory leukocytosis with granulocytosis. 6. Normocytic anemia. 7. Status post packed red blood cell transfusion x2. 8. Uncontrolled type 2 noninsulin-requiring diabetes mellitus with hyperglycemia. 9. Left foot Pseudomonas aeruginosa, group B Streptococcus with beta-hemolytic left foot, and left foot diabetic ulceration and possible diabetic left foot gangrene. 10. Proteinuria. 11. Microscopic hematuria. 12. Bacteriuria. 13. Left foot group B streptococcal beta-hemolytic and Pseudomonas aeruginosa left foot diabetic foot ulceration. 14. Episodic disorientation and confusion, etiology undetermined. 15. Questionable toxic metabolic encephalopathy. 16. Hyperglycemia secondary to uncontrolled diabetes mellitus. 17. Status post packed red blood cell transfusion x2. 18. Persistent refractory leukocytosis. 19. Left foot diabetic ulceration and diabetic cellulitis. 20. Dilated cardiomyopathy. 21. History of poor compliance and noncompliance. 22. History of hyperuricemia and gout. 23. 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 24. Gait dysfunction. 25. Deconditioning. 1. Left foot diabetic ulceration and nonhealing diabetic ulceration with possible diabetic gangrene of the left foot and great toe and the left foot toes with group B Streptococcus and Pseudomonas aeruginosa, cellulitis and diabetic foot gangrene of the left foot. 2. Uncontrolled diabetes mellitus with elevated hemoglobin A1c. 3. Fever. 4. Questionable sepsis. 5. Tachycardia. 6. Possible sepsis versus systemic inflammatory response syndrome. 7. Fever. 8. Transient hypotension. 9. Dilated cardiomyopathy. 10. Persistent refractory leukocytosis. 11. Normocytic anemia status post packed red blood cell transfusion. 12. Granulocytosis. 13. Acute kidney injury with underlying chronic kidney disease, stage IV. 14. Uncontrolled diabetes mellitus with hyperglycemia and an elevated hemoglobin A1c and hyperfructosemia. 15. History of poor compliance and noncompliance. 16. History of hyperuricemia and gout. 17. Severe peripheral vascular disease. 18. History of severe peripheral vascular disease of the lower extremity. 19. Severe mitral and tricuspid regurgitation. 20. Cardiomyopathy with ejection fraction of around 35%. 21. History of poor compliance. 22. History of chronic osteomyelitis of the left foot and partial amputation of the left foot second toe. 1. Fever. 2. Sinus tachycardia. 3. Pseudomonas nose group. Group B streptococcus group B beta hemolytic left foot diabetic foot ulcerations and cellulitis and gangrene. 4. Severe peripheral vascular disease. 5. Persistent refractory leukocytosis with granulocytosis. 6. Anemia with decreasing hemoglobin/hematocrit. 7. Elevated erythrocyte sedimentation rate of 122. 8. Chronic kidney disease, stage 3. 9. Hyperglycemia secondary to uncontrolled diabetes mellitus with hemoglobin A1c of 8.6 and hyper fructose anemia. 10. Transaminitis. 11. Iron-deficiency anemia. 12. Hypertriglyceridemia. 13. Elevated C-reactive protein of greater than 15. 14. Lactic acidosis. 15. Status post packed red blood cell transfusions x2. 16. Left foot erosive changes. 17. Severe peripheral vascular disease of bilateral popliteal trifurcation and tibial disease with normal resting ankle-brachial indices. 18. Chronic osteomyelitis of the left foot with bony destruction and sclerosis around the first metatarsophalangeal joint and partial amputation of the second proximal phalanx. 19. Severe degenerative joint disease of the left midfoot. 20. Left axis deviation. 21. Acute kidney injury with underlying chronic kidney disease. 22. Metabolic acidosis. 23. Hypertensive diabetic chronic kidney disease stage 3 without proteinuria. 24. Monoclonal gammopathy of unknown significance. 25. Severe mitral, tricuspid regurgitation with cardiomyopathy, left ventricular ejection fraction of 35% to 40%. 26. Left foot diabetic foot ulceration and gangrene. 27. Congestive heart failure with reduced ejection fraction. 28. Nonhealing left foot diabetic ulceration. 29. Sepsis with left foot cellulitis and diabetic foot ulceration with Pseudomonas secondary to Pseudomonas aeruginosa and Streptococcus group B beta hemolytic Streptococcus. 30. Questionable and possible delirium versus encephalopathy. 31. Gait dysfunction. 32. Deconditioning. 33. Constipation. 34. Hypovitaminosis D. 35. Prostatic hypertrophy. 36. Hyperlipidemia. 37. Hyperuricemia. 38. Hyperglycemia. 39. Uncontrolled diabetes mellitus with hyperglycemia. 40. Gait dysfunction. 41. History of poor compliance and noncompliance. 1. Left foot Pseudomonas aeruginosa and group B beta hemolytic strep, left foot diabetic foot ulceration and cellulitis. 2. Sepsis secondary to Pseudomonas aeruginosa and group B beta hemolytic strep, left diabetic foot ulceration and cellulitis. 3. Hypertension. 4. Tachycardia. 5. Anemia. 6. Status post packed red blood cell transfusion one unit. 7. Leukocytosis with granulocytosis. 8. Elevated erythrocyte sedimentation rate of 122. 9. Iron-deficiency. 10. Acute kidney injury with underlying chronic kidney disease, stage IV. 11. Uncontrolled diabetes mellitus with hyperglycemia and elevated hemoglobin A1c of 8.6 and elevated fructose, a mean of 329. 12. Transient lactic acidosis. 13. Transaminitis. 14. Hypertriglyceridemia. 15. Elevated C-reactive protein of greater than 15. 16. Gait dysfunction. 17. Deconditioning. 18. Metabolic acidosis. 19. 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 20. Severe mitral, tricuspid regurgitation and systolic congestive heart failure. 21. Left foot cellulitis and left foot diabetic ulceration. 22. Left diabetic foot ulceration and possible gangrene or pre-gangrenous condition of the left foot toes. 23. Left foot second digit amputation. 24. Peripheral vascular disease. 25. Left foot second toe amputation with cyanosis and mummification of the toes and forefoot of the left foot. 26. Severe tibial disease of the lower extremity. 27. Peripheral vascular disease. 28. Anemia of chronic disease. 29. Bilateral popliteal trifurcation and tibial disease. 30. Left anterior hemiblock. 1. Left foot Pseudomonas aeruginosa and group B Streptococcus beta hemolytic left foot cellulitis and diabetic foot ulcer. 2. Severe peripheral vascular disease of the lower extremity. 3. Normocytic anemia with decreasing hemoglobin. 4. Leukocytosis with granulocytosis. 5. Uncontrolled diabetes mellitus with hyperglycemia. 6. Acute kidney injury with underlying chronic kidney disease stage III/IV. 7. Transaminitis. 8. Probably anemia of chronic kidney disease. 9. Acute kidney injury with underlying chronic kidney disease. 10. Metabolic acidosis. 11. Hypertensive diabetic chronic kidney disease. 12. [id number] mitral regurgitation and [id number] tricuspid regurgitation. 13. Dilated cardiomyopathy with ejection fraction of 35%. 14. Sepsis. 15. Hypertension. 16. Gait dysfunction. 17. Deconditioning. 18. Bilateral lower extremity peripheral vascular disease. 19. History of poor compliance and noncompliance. 20. History of hyperuricemia and gout. 1. Left foot cellulitis versus gangrene versus pregangrenous state. 2. Sepsis. 3. Tachycardia. 4. Transient episodic hypotension. 5. Leukocytosis with granulocytosis 6. Elevated erythrocyte sedimentation rate of 122. 7. Normocytic anemia. 8. Chronic kidney disease stage 4 with acute kidney injury. 9. Uncontrolled noninsulin-requiring diabetes mellitus with hyperglycemia and hemoglobin A1c of 8.6. 10. Possible iron-deficiency. 11. Hypertriglyceridemia. 12. Elevated C-reactive protein of greater than 15. 13. Transient lactic acidosis. 14. Transaminitis. 15. Deconditioning. 16. Gait dysfunction. 17. Anemia with decreasing hemoglobin and hematocrit. 18. Metabolic acidosis. 19. Diabetic hypertensive chronic kidney disease. 20. Chronic kidney disease stage 3 without proteinuria. 21. Severe mitral and tricuspid regurgitation. 22. Systolic congestive heart failure. 23. Dilated ischemic cardiomyopathy, etiology undetermined. 1. Left foot cellulitis with diabetic foot disease and possible abscess versus possible osteomyelitis. 2. History of left foot second toe amputation. 3. Hypertension. 4. Tachycardia. 5. Fever. 6. Poor compliance and noncompliance. 7. Leukocytosis with granulocytosis. 8. Normocytic anemia. 9. Elevated erythrocyte sedimentation rate of 122. 10. Chronic kidney disease, stage IV with acute kidney injury. 11. Transient lactic acidosis. 12. History of hyperuricemia. 13. Hypertriglyceridemia. 14. Aortic calcification. 15. Bilateral lower extremity popliteal trifurcation and tibial peripheral vascular disease. 16. Left foot first metatarsophalangeal joint bony destruction and sclerosis, chronic osteomyelitis. 17. 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 18. 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 19. Sinus tachycardia with left anterior hemiblock. 20. Deconditioning. 21. History of poor compliance. 22. Chronic dilated ischemic cardiomyopathy with ejection fraction of . 23. History of hypertension. 24. History of heart failure with reduced ejection fraction of 35%. 25. Pulmonary hypertension with right ventricular systolic pressure of 40 mmHg. 26. Left ventricular global hypokinesis and moderately impaired left ventricular systolic function. 27. Mild aortic regurgitation. 28. Moderate to severe mitral regurgitation. 29. Moderate tricuspid regurgitation. 30. History of constipation. 31. Hypovitaminosis D. 32. History of iron-deficiency anemia. 33. Prostatic hypertrophy. 34. Insulin-requiring diabetes mellitus. 35. Hyperlipidemia. 36. History of peripheral vascular disease. 37. Hyperuricemia. 1. Left foot diabetic foot ulceration versus left foot abscess versus left foot toe osteomyelitis. 2. Tachycardia. 3. Leukocytosis with granulocytosis. 4. Questionable systemic inflammatory response syndrome. 5. Uncontrolled diabetes mellitus with hyperglycemia. 6. Chronic kidney disease stage IV. 7. Mild transaminitis. 8. History of hypertension. 9. Hyperlipidemia. 10. History of prostatic hypertrophy. 11. History of iron-deficiency anemia. 12. History of hypovitaminosis D. 13. History of dilated cardiomyopathy. 14. History of pulmonary hypertension. 15. History of moderate tricuspid regurgitation and mitral regurgitation. 16. Hyperuricemia. PLAN: At this time, the patient has been ordered repeat labs. Current consultation, Interventional Radiology, Podiatry, Cardiology, Vascular Surgery, Gastroenterology, Infectious Disease, Nephrology, Neurology, diabetic education referral TCU evaluation ordered. CURRENT MEDICATIONS: Aranesp 40 mcg subcu weekly, Colace 100 mg three times a day Dakin solution topical daily, Drisdol 50,000 units one dose, aspirin 81 mg daily, ferrous sulfate 325 twice a day, Flomax 0.4 mg daily, Humalog medium dose sliding scale coverage a.c., NPH insulin increased to 25 units twice a day because of hyperglycemia, Lipitor 20 mg daily, Lopressor 25 mg every 8 hours, meropenem 500 IV every 12 hours, MiraLax 17 g twice a day, morphine 2 mg IV every 4 hours p.r.n., Nephro-Sumit 1 tablet daily, Percocet 5/325 1 tablet every 4 hours p.r.n., Pletal 50 mg twice a day, Protonix 40 mg daily, Tylenol 650 mg p.o. suppository every 6 hours p.r.n., Zofran 4 mg IV every 4 hours p.r.n., allopurinol 100 mg daily. At this time, the patient's further management will be dependent upon the patient's clinical condition, hemodynamic status and as per the patient response to therapeutic intervention and as per recommendation by all the physicians involved in the care of the patient. The patient's overall prognosis is guarded secondary to multiple complicated comorbidities. Dictated and electronically signed, not read. Signing off Niranjan Ling MD. Niranjan Ling MD [email or web address]
--- NOTE | 2018-11-26 13:35 | CP.PCM.PN ---
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 Hypertension control with meds as ordered. Maintain hemodynamics stable. Avoid hypotension. Patient not on ACEI/ARB due to EMIL and hyperkalemia tendency. consider to add once stable. Monitor Input/Output, daily weights and renal function with basic metabolic panel continue with iron and MVI. PRBC as needed. dose of aransep 40 mcg 11/17/18. K/L ratio remains high at 3.6. suggest hematology eval vit d can be changed to once a month as last level 41 continue with flomax can give IVF as needed Dose meds/antibiotics for reduced GFR. Avoid fleets enema/magnesium based laxatives. Avoid nephrotoxins/NSAIDs/ iodinated contrast (unless needed emergently) Glycemic control Further work up/management as per primary team Thanks for allowing me to participate in care of your patient. Will follow patient with you. Please call if any Qs. had d/w team and son Dr Anjum Padron Office: [phone] Chief Complaint; Foot ulcer Reason for consult: Acute Kidney Injury HPI: Pt is a 73 M with hx of diabetes Mellitus (30 years), hypertension (years) PVD, Gout CKD 3 with baseline cr 1.8-1.9 presented with complaints of foot ulcer, being managed for cellulitis. seen for EMIL and pt also with PVD Denies OTC/herbal meds or NSAIDs. No recent iodinated contrast exposure. Noted obvious episodes of low BP. pt still not aware about kidney disease in past ROS: noted overnight events Cardiovascular: No chest pain. Pulmonary: No shortness of breath Gastrointestinal: denies abdominal pain No nausea. No vomiting. Genitourinary: No pain while urinating. Denies blood in urine. All other negative except as mentioned in HPI. per son, pt refused to go for outpt follow ups Physical Examination: General Appearance: Comfortable, in no acute respiratory distress, co-operative . Vitals reviewed and noted as below Head; Atraumatic, normocephalic ENT: no ulcers no thrush. Tongue is midline. Oropharynx: no rash or ulcers. EYES: Pupils are equal, round and reactive to light accommodation. Eye muscles and extra-ocular movement intact. Sclera is anicteric. Neck; supple no lymphadenopathy, no thyromegaly or bruit Lungs: Normal respiratory rate/effort. Breath sounds bilateral equal and clear Heart: Incr rate. s1s2 normal. No rub or gallop. Extremities: no edema. No varicose veins. left foot in dressing Neurological: Patient is alert, awake and oriented to person, place and time. No focal deficit. Strength bilateral appropriate and equal Skin: Warm and dry. Normal turgor. No rash. Palpitation: Normal elasticity for age Abdomen: Abdomen is soft. Bowel sounds +. There is no abdominal tenderness, no guarding/rigidity no organomegaly Psych: lack insight and has normal affect/mood MSK: no joint tenderness or swelling. Digits and nails normal, no deformity : kidney or bladder not palpable. Labs/imaging reviewed. Past medical history, past surgical history, family history, social history, allergy reviewed and noted as below Family hx: no hx of CKD. Rest non-contributory Phos 3.5 TSAT 13% Vit D 41 PTH 49 LDL 103 kappa/lambda 3.4 uric acid 7.5 renal cyst left side Objective - Vital Signs/Intake and Output Vital Signs (last 24 hours): Temp Pulse Resp BP Pulse Ox 98.6 F 104 H 18 133/71 97 11/26/18 06:00 11/26/18 06:08 11/26/18 06:00 11/26/18 06:08 11/26/18 06:00 Intake and Output: 11/26/18 11/26/18 06:59 18:59 Intake Total 710 360 Output Total 1600 700 Balance -890 -340 - Medications Medications: Current Medications Acetaminophen (Tylenol 325mg Tab) 650 mg PO Q6H PRN PRN Reason: Pain, moderate (4-7) Last Admin: 11/20/18 18:36 Dose: 650 mg Acetaminophen (Tylenol 650 Mg Supp) 650 mg RC Q6H PRN PRN Reason: TEMP>=99.5F Acetaminophen (Tylenol 325mg Tab) 650 mg PO Q6 PRN PRN Reason: TEMP>=99.5F Last Admin: 11/25/18 18:05 Dose: 650 mg Acetaminophen (Tylenol 650 Mg Supp) 650 mg RC Q6H PRN PRN Reason: TEMP>=99.5F Allopurinol (Zyloprim) 100 mg PO DAILY [facility] Last Admin: 11/26/18 10:37 Dose: 100 mg Aspirin (Ecotrin) 81 mg PO 0800 [facility] Last Admin: 11/26/18 08:38 Dose: 81 mg Atorvastatin Calcium (Lipitor) 20 mg PO DIN [facility] Last Admin: 11/25/18 18:06 Dose: 20 mg Cilostazol (Pletal) 50 mg PO BID [facility] Last Admin: 11/26/18 10:37 Dose: 50 mg Darbepoetin Arturo (Aranesp) 40 mcg SC QWK [facility] Last Admin: 11/25/18 23:20 Dose: 40 mcg Dextrose (Dextrose 50% Inj) 0 ml IV STAT PRN; Protocol PRN Reason: Hypoglycemia Protocol Docusate Sodium (Colace) 100 mg PO TID [facility] Last Admin: 11/26/18 10:35 Dose: 100 mg Ergocalciferol (Drisdol 50,000 Intl Units Cap) 1 cap PO ONCE ONE Stop: 11/28/18 10:01 Ferrous Sulfate (Feosol) 324 mg PO BID [facility] Last Admin: 11/26/18 10:35 Dose: 324 mg Meropenem/Sodium Chloride (Merrem Iv 500 Mg/Ns 50 Ml) 500 mg in 50 mls @ 100 mls/hr IVPB Q12 [facility]; Protocol Last Admin: 11/26/18 12:35 Dose: 100 mls/hr Dextrose (Dextrose 5% In Water 1000 Ml) 1,000 mls @ 0 mls/hr IV .Q0M PRN; Protocol PRN Reason: Hypoglycemia Protocol Insulin Human Lispro (Humalog Med) 0 units SC AC [facility]; Protocol Last Admin: 11/26/18 11:36 Dose: 5 units Insulin Human NPH (Humulin N) 25 units SC ACBD [facility] Last Admin: 11/26/18 08:37 Dose: 25 unit Metoprolol Tartrate (Lopressor) 25 mg PO Q8H [facility] Last Admin: 11/26/18 06:08 Dose: 25 mg Morphine Sulfate (Morphine) 2 mg IVP Q4H PRN PRN Reason: Pain, severe (8-10) Last Admin: 11/26/18 11:11 Dose: 2 mg Ondansetron HCl (Zofran Inj) 4 mg IVP Q4H PRN PRN Reason: Nausea/Vomiting Ondansetron HCl (Zofran Inj) 4 mg IVP Q4H PRN PRN Reason: Nausea/Vomiting Ondansetron HCl (Zofran Inj) 4 mg IVP ONCE PRN PRN Reason: Nausea/Vomiting Oxycodone/Acetaminophen (Percocet 5/325 Mg Tab) 1 tab PO Q4H PRN PRN Reason: Pain, moderate (4-7) Stop: 11/28/18 09:00 Pantoprazole Sodium (Protonix Ec Tab) 40 mg PO 0600 [facility] Last Admin: 11/26/18 06:09 Dose: 40 mg Polyethylene Glycol (Miralax) 17 gm PO BID [facility] Last Admin: 11/26/18 10:36 Dose: 17 gm Sodium Hypochlorite (Dakins Solution 0.25%) 20 ml TOP DAILY [facility] Tamsulosin HCl (Flomax) 0.4 mg PO 1830 [facility] Last Admin: 11/25/18 20:27 Dose: Not Given Vitamin B Complex/Vit C/Folic Acid (Nephro-Sumit) 1 tab PO 0800 [facility] Last Admin: 11/26/18 08:38 Dose: 1 tab - Labs Labs: 11/26/18 07:30 11/26/18 07:30 PT 14.7 SECONDS (9.4-12.5) H 11/25/18 13:05 INR 1.30 11/25/18 13:05 APTT 26.3 Seconds (26.9-38.3) L 11/25/18 13:05
--- NOTE | 2018-11-26 14:41 | PN ---
DATE: 11/26/2018 CARDIOLOGY FOLLOWUP SUBJECTIVE: The patient is in no acute distress without complaints. PHYSICAL EXAMINATION VITAL SIGNS: Blood pressure 133/71, heart rate is 100. NECK: Negative JVD. LUNGS: Decreased breath sounds. HEART: S1 and S2. EXTREMITIES: Bandaged. LABORATORY DATA: Hemoglobin is 9.8. The white count is 13.9. Glucose is 255, BUN and creatinine are 32 and 1.8. IMPRESSION 1. Status post surgery of his lower extremities with amputation of his digits. 2. Dilated cardiomyopathy. 3. Coronary artery disease. 4. Renal insufficiency. 5. Anemia. PLAN: The patient is currently on IV antibiotics as no acute cardiac issues at this time. Although, the patient likely has a high probability for CAD. Milton Murrell MD
--- NOTE | 2018-11-27 00:20 | PN ---
DATE: 11/26/2018 SUBJECTIVE: The patient was seen in room 575, bed 2. No fevers. No chills. PHYSICAL EXAMINATION: VITAL SIGNS: Temperature 98, T-max 100.2, respiratory rate 20, heart rate , and blood pressure 105/50. HEENT: Unremarkable. NECK: Supple. LUNGS: Decreased breath sounds. HEART: Normal S1 and S2. ABDOMEN: Soft. LABORATORY DATA: Reveals white count of 13,900, hemoglobin of 9. Chemistries are noted. Creatinine 1.8. Urinalysis is noted. Serology is noted. ASSESSMENT AND PLAN: A 73-year-old male who was seen earlier this morning in room 575, bed 2 with sepsis with left cellulitis and Pseudomonas, group B Strep, currently on meropenem and the patient had foot surgery yesterday with removal of the left third and fourth toenails and amputation of the left great toe and second metatarsal. Currently, on meropenem. We will check on the pathology report. Tai Landaverde MD
[2018-11-27] MEDS: Pantoprazole 40 mg EC Tab PO SCH (05:45)
[2018-11-27 07:35] LABS: BASO # 0.02 K/mm3 (0.0-2.0); BASO % 0.2 % (0.0-3.0); EOS # 0.5 (0.0-0.7); EOS % 3.5 % (1.5-5.0); LYMPH # 1.2 (1.2-3.4); LYMPH % 9.1 % (22.0-35.0); MEAN CELL VOLUME 93.2 fl (80.0-105.0); MEAN CORPUSCULAR HEMOGLOBIN 30.8 pg (25.0-35.0); MEAN PLATELET VOLUME 9.8 fl (7.0-11.0); MONO # 1.2 (0.1-0.6); MONO % 8.8 % (1.0-6.0); RBC 3.25 10^6/uL (3.5-6.1); RED CELL DISTRIBUTION WIDTH 16.4 % (11.5-14.5)
[2018-11-27 08:01] LABS: ALB/GLOB RATIO 0.9 (1.1-1.8); ALBUMIN 3.3 g/dL (3.0-4.8); BILIRUBIN,DIRECT 0.2 mg/dL (0.0-0.4); CALCIUM 8.7 mg/dL (8.4-10.5)
[2018-11-27] MEDS: Insulin Lispro (humaLOG) MEDIUM Coverage SC SCH ×3 (08:19→17:20)
--- NOTE | 2018-11-27 09:23 | CP.PCM.PN ---
<Phi Mcnair D - Last Filed: 11/27/18 09:20> Subjective - Date & Time of Evaluation Date of Evaluation: 11/27/18 Time of Evaluation: 09:20 - Subjective Subjective: SURGERY NOTE FOR DR. SOSA 73M seen and examined at bedside. Patient currently resting comfortably. States pain is leg is controlled, denies subjective fevers or chills. Tolerating diet. Objective - Vital Signs/Intake and Output Vital Signs (last 24 hours): Temp Pulse Resp BP Pulse Ox 98 F 108 H 20 121/75 97 11/26/18 22:00 11/27/18 05:47 11/26/18 22:00 11/27/18 05:47 11/26/18 22:00 Intake and Output: 11/27/18 11/27/18 06:59 18:59 Intake Total 240 180 Output Total 900 Balance -660 180 - Medications Medications: Current Medications Acetaminophen (Tylenol 325mg Tab) 650 mg PO Q6H PRN PRN Reason: Pain, moderate (4-7) Last Admin: 11/20/18 18:36 Dose: 650 mg Acetaminophen (Tylenol 650 Mg Supp) 650 mg RC Q6H PRN PRN Reason: TEMP>=99.5F Acetaminophen (Tylenol 325mg Tab) 650 mg PO Q6 PRN PRN Reason: TEMP>=99.5F Last Admin: 11/26/18 15:37 Dose: 650 mg Acetaminophen (Tylenol 650 Mg Supp) 650 mg RC Q6H PRN PRN Reason: TEMP>=99.5F Allopurinol (Zyloprim) 100 mg PO DAILY [facility] Last Admin: 11/26/18 10:37 Dose: 100 mg Aspirin (Ecotrin) 81 mg PO 0800 [facility] Last Admin: 11/26/18 08:38 Dose: 81 mg Atorvastatin Calcium (Lipitor) 20 mg PO DIN [facility] Last Admin: 11/26/18 17:45 Dose: 20 mg Cilostazol (Pletal) 50 mg PO BID [facility] Last Admin: 11/26/18 17:46 Dose: 50 mg Darbepoetin Arturo (Aranesp) 40 mcg SC QWK [facility] Last Admin: 11/25/18 23:20 Dose: 40 mcg Dextrose (Dextrose 50% Inj) 0 ml IV STAT PRN; Protocol PRN Reason: Hypoglycemia Protocol Docusate Sodium (Colace) 100 mg PO TID [facility] Last Admin: 11/26/18 17:45 Dose: 100 mg Ergocalciferol (Drisdol 50,000 Intl Units Cap) 1 cap PO ONCE ONE Stop: 11/28/18 10:01 Ferrous Sulfate (Feosol) 324 mg PO BID [facility] Last Admin: 11/26/18 17:45 Dose: 324 mg Heparin Sodium (Porcine) (Heparin) 5,000 units SC Q8 [facility]; Protocol Last Admin: 11/27/18 05:45 Dose: 5,000 units Meropenem/Sodium Chloride (Merrem Iv 500 Mg/Ns 50 Ml) 500 mg in 50 mls @ 100 mls/hr IVPB Q12 [facility]; Protocol Last Admin: 11/26/18 22:39 Dose: 100 mls/hr Dextrose (Dextrose 5% In Water 1000 Ml) 1,000 mls @ 0 mls/hr IV .Q0M PRN; Protocol PRN Reason: Hypoglycemia Protocol Insulin Human Lispro (Humalog Med) 0 units SC AC [facility]; Protocol Last Admin: 11/27/18 08:19 Dose: Not Given Insulin Human NPH (Humulin N) [facility] Last Admin: 11/26/18 17:44 Dose: Not Given Metoprolol Tartrate (Lopressor) 25 mg PO Q8H [facility] Last Admin: 11/27/18 05:47 Dose: 25 mg Morphine Sulfate (Morphine) 2 mg IVP Q4H PRN PRN Reason: Pain, severe (8-10) Last Admin: 11/26/18 11:11 Dose: 2 mg Ondansetron HCl (Zofran Inj) 4 mg IVP Q4H PRN PRN Reason: Nausea/Vomiting Ondansetron HCl (Zofran Inj) 4 mg IVP Q4H PRN PRN Reason: Nausea/Vomiting Ondansetron HCl (Zofran Inj) 4 mg IVP ONCE PRN PRN Reason: Nausea/Vomiting Oxycodone/Acetaminophen (Percocet 5/325 Mg Tab) 1 tab PO Q4H PRN PRN Reason: Pain, moderate (4-7) Stop: 11/28/18 09:00 Last Admin: 11/26/18 23:03 Dose: 1 tab Pantoprazole Sodium (Protonix Ec Tab) 40 mg PO 0600 [facility] Last Admin: 11/27/18 05:45 Dose: 40 mg Polyethylene Glycol (Miralax) 17 gm PO BID [facility] Last Admin: 11/26/18 17:45 Dose: 17 gm Sodium Hypochlorite (Dakins Solution 0.25%) 20 ml TOP DAILY [facility] Tamsulosin HCl (Flomax) 0.4 mg PO 1830 [facility] Last Admin: 11/26/18 17:42 Dose: 0.4 mg Vitamin B Complex/Vit C/Folic Acid (Nephro-Sumit) 1 tab PO 0800 [facility] Last Admin: 11/26/18 08:38 Dose: 1 tab - Labs Labs: 11/27/18 07:00 11/27/18 07:00 PT 14.7 SECONDS (9.4-12.5) H 11/25/18 13:05 INR 1.30 11/25/18 13:05 APTT 26.3 Seconds (26.9-38.3) L 11/25/18 13:05 - Constitutional Appears: Non-toxic, No Acute Distress - Respiratory Exam Respiratory Exam: Clear to Ausculation Bilateral, NORMAL BREATHING PATTERN - Cardiovascular Exam Cardiovascular Exam: REGULAR RHYTHM, +S1, +S2 - GI/Abdominal Exam GI & Abdominal Exam: Soft. absent: Distended, Firm, Guarding, Rigid, Tenderness, Rebound - Extremities Exam Additional comments: left foot dressing in place with betadine soaks, wet to dry. Non malodorous - Neurological Exam Neurological Exam: Alert, Awake - Skin Skin Exam: Dry, Intact, Normal Color, Warm Assessment and Plan - Assessment and Plan (Free Text) Assessment: 73M s/p left hallux and 2nd metatarsal amputation POD3 for chronic left foot ulcer Plan: - continue twice daily dressing changes - will begin dakin solution on Thursday - Continue antibiotics per ID - Awaiting pathology - Wound care, Physical therapy Further recs discuss with Dr. Ian Mcnair, PGY3 <Kain Sosa - Last Filed: 12/09/18 18:43> Objective - Vital Signs/Intake and Output Vital Signs (last 24 hours): Temp Pulse Resp BP Pulse Ox 98.4 F 94 H 20 97/62 L 100 12/09/18 13:44 12/09/18 13:44 12/09/18 13:44 12/09/18 13:44 12/09/18 13:44 Intake and Output: 12/09/18 12/09/18 06:59 18:59 Intake Total 480 Output Total 300 Balance 180 - Medications Medications: Current Medications Acetaminophen (Tylenol 325mg Tab) 650 mg PO Q6H PRN PRN Reason: Pain, Mild (1-3) Last Admin: 12/08/18 09:31 Dose: 650 mg Acetaminophen (Tylenol 325mg Tab) 650 mg PO Q6 PRN PRN Reason: Fever >100.4 F Dextrose (Dextrose 50% Inj) 0 ml IV STAT PRN; Protocol PRN Reason: Hypoglycemia Protocol Dextrose (Dextrose 50% Inj) 0 ml IV STAT PRN; Protocol PRN Reason: Hypoglycemia Protocol Docusate Sodium (Colace) 100 mg PO TID [facility] Last Admin: 12/09/18 18:14 Dose: 100 mg Famotidine (Pepcid) 20 mg PO 1000,2200 [facility] Stop: 12/11/18 10:01 Last Admin: 12/09/18 10:50 Dose: 20 mg Ferrous Gluconate (Fergon) 324 mg PO TID [facility] Last Admin: 12/09/18 18:14 Dose: 324 mg Heparin Sodium (Porcine) (Heparin) 5,000 units SC Q8 [facility]; Protocol Last Admin: 12/09/18 15:31 Dose: 5,000 units Dextrose (Dextrose 5% In Water 1000 Ml) 1,000 mls @ 0 mls/hr IV .Q0M PRN; Protocol PRN Reason: Hypoglycemia Protocol Meropenem/Sodium Chloride (Merrem Iv 500 Mg/Ns 50 Ml) 500 mg in 50 mls @ 100 mls/hr IVPB Q12 [facility]; Protocol Last Admin: 12/09/18 10:51 Dose: 100 mls/hr Dextrose (Dextrose 5% In Water 1000 Ml) 1,000 mls @ 0 mls/hr IV .Q0M PRN; Protocol PRN Reason: Hypoglycemia Protocol Insulin Human Lispro (Humalog Med) 0 units SC AC [facility]; Protocol Last Admin: 12/09/18 17:00 Dose: 1 units Insulin Human NPH (Humulin N) 17 units SC ACBD [facility] Last Admin: 12/09/18 17:03 Dose: 17 unit Midodrine (Proamatine) 5 mg PO TID [facility] Last Admin: 12/09/18 18:14 Dose: 5 mg Nystatin (Nystop Topical Powder) 0 gm TOP BID [facility] Last Admin: 12/09/18 18:17 Dose: 1 appl Ondansetron HCl (Zofran Inj) 4 mg IVP Q4H PRN PRN Reason: Nausea/Vomiting Pantoprazole Sodium (Protonix Ec Tab) 40 mg PO 0600 [facility] Last Admin: 12/09/18 05:37 Dose: 40 mg Polyethylene Glycol (Miralax) 17 gm PO BID [facility] Last Admin: 12/09/18 18:16 Dose: Not Given Sodium Hypochlorite (Dakins Solution 0.25%) 20 ml TOP DAILY [facility] Last Admin: 12/09/18 10:47 Dose: 1 applic Tamsulosin HCl (Flomax) 0.4 mg PO DAILY [facility] Last Admin: 12/09/18 10:49 Dose: 0.4 mg Vitamin B Complex/Vit C/Folic Acid (Nephro-Sumit) 1 tab PO 0800 [facility] Last Admin: 12/09/18 08:17 Dose: 1 tab - Labs Labs: 12/09/18 07:30 12/09/18 07:30 PT 14.7 SECONDS (9.4-12.5) H 11/25/18 13:05 INR 1.30 11/25/18 13:05 APTT 26.3 Seconds (26.9-38.3) L 11/25/18 13:05 Assessment and Plan - Assessment and Plan (Free Text) Plan: Patient was seen, evaluated and examined by me at the bedside. I agree with assessment and plan as stated in the resident's note.
[2018-11-27] MEDS: Multivitamin Vitamin B Complex (Nephro-Vite) Tab PO SCH (10:33)
[2018-11-27] MEDS: Cilostazol 50 mg Tab UD PO SCH ×2 (10:33→17:27)
[2018-11-27] MEDS: POLYETHYLENE GLYCOL 3350 17 GM/Dose PACKET PO SCH ×2 (10:34→17:24)
[2018-11-27] MEDS: Insulin Human NPH 1 UNITS/0.01 ML SC SCH ×2 (10:38→17:24)
[2018-11-27] MEDS: MEROPENEM 500 MG in NS 500 MG/50 ML BAG IVPB SCH ×2 (12:04→21:59)
--- NOTE | 2018-11-27 12:16 | PN ---
DATE: 11/27/2018 SUBJECTIVE: The patient is seen lying in the bed in room 575, bed 2. The patient is lying in the bed having breakfast. The patient is alert, awake, responsive, in no distress. Overnight nurse's notes were reviewed. The patient was found to be alert, awake, oriented x1. PHYSICAL EXAMINATION: VITAL SIGNS: T-max 100.5 down to 98.6, heart rate 108, 101, 104, blood pressure 121/75, 109/65, 133/71, respirations 20, O2 sat 97% to 99%. HEENT: Head examination normocephalic, atraumatic. HEENT examination shows pinkish pale conjunctivae. Anicteric sclerae. No oropharyngeal lesion. NECK: No neck rigidity. CHEST: Kyphosis. LUNGS: Shows no audible crackle, rales or wheezing. CARDIOVASCULAR: S1 and S2, regular rhythm. Questionable soft systolic murmur at left sternal border, right second intercostal space, left second intercostal space. ABDOMEN: Soft, positive bowel sound, no palpable hepatosplenomegaly. GENITALIA: Male. RECTAL: Deferred. EXTREMITIES: Shows positive dressing of the left foot with soaking by Dakin's solution noted. MUSCULOSKELETAL: Shows a body mass index of 26. NEUROLOGIC: Gait examination is not tested. DIAGNOSTICS: WBC is 13, hemoglobin and hematocrit 10 and 30.3, platelets 428, granulocytes 78% segs. Sodium 138, potassium 3.7, chloride 100, CO2 of 30, anion gap 12, BUN 31, creatinine 1.8, GFR 37, glucose 83, calcium 8.7, phosphorus 3.3, magnesium 2.2. LFTs are normal. Stool occult blood negative x2. Left toe cultures from the surgery Proteus mirabilis. The patient received 3 units of PRBC. IMPRESSION: 1. Sepsis, secondary to left foot diabetic foot ulceration secondary to Proteus mirabilis, Pseudomonas aeruginosa, beta hemolytic group B strep. 2. High-grade fever. 3. Tachycardia. 4. Episodic hypotension. 5. Leukocytosis with granulocytosis. 6. Acute kidney injury with underlying chronic kidney disease stage 4. 7. Uncontrolled non-insulin requiring diabetes mellitus with hyperglycemia and elevated hemoglobin A1c and elevated fructosamine of 329. 8. Episodic disorientation and confusion, possible questionable delirium versus toxic metabolic encephalopathy. 9. Proteinuria, microscopic hematuria, bacteriuria. 10. Monoclonal gammopathy, of unknown significance. 11. Metabolic acidosis. 12. Hypertensive, diabetic, chronic kidney disease stage 3. 13. Severe mitral, tricuspid regurgitation with systolic congestive heart failure and cardiomyopathy with ejection fraction of 35%. 14. Left foot grade 2 amputation, second metatarsal amputation, and third and fourth toe toenail removal and wound debridement. 15. Cardiomyopathy. 16. Severe peripheral vascular disease of the lower extremity. 17. Persistent refractory leukocytosis. 18. Chronic microvascular ischemic disease of the brain and cerebral cortical atrophy of the brain. 19. Gait dysfunction. 20. Deconditioning. 21. Transient confusion state secondary to transient cerebral hypoperfusion and hyperglycemic fluctuations. 1. Status post left foot great toe amputation and second metatarsal amputation and third and fourth digit toenail removal and left foot wound debridement, postop day #1. 2. Chronic nonhealing left foot diabetic foot ulceration and possible gangrene. 3. Fever. 4. Tachycardia. 5. Hypotension. 6. Persistent refractory leukocytosis with granulocytosis. 7. Normocytic anemia, status post packed red blood cell transfusion x3. 8. Uncontrolled diabetes mellitus with hyperglycemia and elevated hemoglobin A1c of 8.6. 9. Hyper fructosemia. 10. Lactic acidosis. 11. Hyperuricemia. 12. Possible iron-deficiency. 13. Elevated C-reactive protein of greater than 15. 14. Hypertriglyceridemia. 15. Proteinuria. 16. Microscopic hematuria. 17. Bacteriuria. 18. Elevated total kappa lambda ratio. 19. Pseudomonas aeruginosa and beta hemolytic strep group B left foot diabetic foot ulceration. 20. Status post packed red blood cell transfusion x3. 21. Left foot cellulitis. 22. Chronic microvascular ischemic disease of the brain and cerebral cortical atrophy of the brain. 23. Sepsis with Pseudomonas aeruginosa and group B Streptococcus beta hemolytic Streptococcus left foot diabetic foot ulcerations and cellulitis. 24. Kidney injury with underlying chronic kidney disease. 25. Hypertensive diabetic chronic kidney disease. 26. Stage III chronic kidney disease secondary to hypertension and vasculopathy. 27. Anemia. 28. Monoclonal gammopathy of unknown significance. 29. Transient and episodic confusion and disorientation, probably secondary to transient cerebral hypoperfusion and uncontrolled diabetes mellitus. 30. Sepsis. 1. Group B Streptococcus and Pseudomonas aeruginosa, left foot diabetic foot ulceration and gangrene and cellulitis. 2. History of chronic osteomyelitis of the left foot. 3. High-grade fever. 4. Questionable sepsis versus systemic inflammatory response syndrome. 5. Tachycardia. 6 Hypotension. 7. Questionable and possible encephalopathy versus toxic metabolic encephalopathy with episodic confusion and disorientation. 8. Type 2 diabetes mellitus. 9. Anemia of chronic disease. 10. Status post packed red blood cell transfusion x2. 11. Gait dysfunction. 12. Deconditioning. 13. Status post left foot big toe amputation,2nd metatarsal amputation, wound debridement and 3rd and 4th toe nail removal. 14. Persistent refractory leukocytosis with granulocytosis 15. Normocytic anemia. 16. Uncontrolled type 2 diabetes mellitus with hyperglycemia. 17. Microvascular ischemic disease of the brain. 18. Cerebral cortical atrophy of the brain. 19. Gait dysfunction with nonweightbearing status of the left foot. 20. Severe peripheral vascular disease of the lower extremity with severe bilateral tibial and distal lower extremities severe occlusive disease with ankle-brachial index is of less than 1. 21. History of hypertension. 22. History of gout and hyperuricemia. 23. History of gouty arthritis. 24. Dilated cardiomyopathy with ejection fraction of 35% with severe mitral and tricuspid regurgitation. 25. Acute kidney injury with underlying chronic kidney disease stage III. 26. Proteinuria and microscopic hematuria. 1. High-grade fever and new fever. 2. Tachycardia. 3. Hypotension. 4. Questionable sepsis versus systemic inflammatory response syndrome with high-grade fever, tachycardia, hypotension. 5. Persistent refractory leukocytosis with granulocytosis. 6. Normocytic anemia. 7. Status post packed red blood cell transfusion x2. 8. Uncontrolled type 2 noninsulin-requiring diabetes mellitus with hyperglycemia. 9. Left foot Pseudomonas aeruginosa, group B Streptococcus with beta-hemolytic left foot, and left foot diabetic ulceration and possible diabetic left foot gangrene. 10. Proteinuria. 11. Microscopic hematuria. 12. Bacteriuria. 13. Left foot group B streptococcal beta-hemolytic and Pseudomonas aeruginosa left foot diabetic foot ulceration. 14. Episodic disorientation and confusion, etiology undetermined. 15. Questionable toxic metabolic encephalopathy. 16. Hyperglycemia secondary to uncontrolled diabetes mellitus. 17. Status post packed red blood cell transfusion x2. 18. Persistent refractory leukocytosis. 19. Left foot diabetic ulceration and diabetic cellulitis. 20. Dilated cardiomyopathy. 21. History of poor compliance and noncompliance. 22. History of hyperuricemia and gout. 23. 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 24. Gait dysfunction. 25. Deconditioning. 1. Left foot diabetic ulceration and nonhealing diabetic ulceration with possible diabetic gangrene of the left foot and great toe and the left foot toes with group B Streptococcus and Pseudomonas aeruginosa, cellulitis and diabetic foot gangrene of the left foot. 2. Uncontrolled diabetes mellitus with elevated hemoglobin A1c. 3. Fever. 4. Questionable sepsis. 5. Tachycardia. 6. Possible sepsis versus systemic inflammatory response syndrome. 7. Fever. 8. Transient hypotension. 9. Dilated cardiomyopathy. 10. Persistent refractory leukocytosis. 11. Normocytic anemia status post packed red blood cell transfusion. 12. Granulocytosis. 13. Acute kidney injury with underlying chronic kidney disease, stage IV. 14. Uncontrolled diabetes mellitus with hyperglycemia and an elevated hemoglobin A1c and hyperfructosemia. 15. History of poor compliance and noncompliance. 16. History of hyperuricemia and gout. 17. Severe peripheral vascular disease. 18. History of severe peripheral vascular disease of the lower extremity. 19. Severe mitral and tricuspid regurgitation. 20. Cardiomyopathy with ejection fraction of around 35%. 21. History of poor compliance. 22. History of chronic osteomyelitis of the left foot and partial amputation of the left foot second toe. 1. Fever. 2. Sinus tachycardia. 3. Pseudomonas nose group. Group B streptococcus group B beta hemolytic left foot diabetic foot ulcerations and cellulitis and gangrene. 4. Severe peripheral vascular disease. 5. Persistent refractory leukocytosis with granulocytosis. 6. Anemia with decreasing hemoglobin/hematocrit. 7. Elevated erythrocyte sedimentation rate of 122. 8. Chronic kidney disease, stage 3. 9. Hyperglycemia secondary to uncontrolled diabetes mellitus with hemoglobin A1c of 8.6 and hyper fructose anemia. 10. Transaminitis. 11. Iron-deficiency anemia. 12. Hypertriglyceridemia. 13. Elevated C-reactive protein of greater than 15. 14. Lactic acidosis. 15. Status post packed red blood cell transfusions x2. 16. Left foot erosive changes. 17. Severe peripheral vascular disease of bilateral popliteal trifurcation and tibial disease with normal resting ankle-brachial indices. 18. Chronic osteomyelitis of the left foot with bony destruction and sclerosis around the first metatarsophalangeal joint and partial amputation of the second proximal phalanx. 19. Severe degenerative joint disease of the left midfoot. 20. Left axis deviation. 21. Acute kidney injury with underlying chronic kidney disease. 22. Metabolic acidosis. 23. Hypertensive diabetic chronic kidney disease stage 3 without proteinuria. 24. Monoclonal gammopathy of unknown significance. 25. Severe mitral, tricuspid regurgitation with cardiomyopathy, left ventricular ejection fraction of 35% to 40%. 26. Left foot diabetic foot ulceration and gangrene. 27. Congestive heart failure with reduced ejection fraction. 28. Nonhealing left foot diabetic ulceration. 29. Sepsis with left foot cellulitis and diabetic foot ulceration with Pseudomonas secondary to Pseudomonas aeruginosa and Streptococcus group B beta hemolytic Streptococcus. 30. Questionable and possible delirium versus encephalopathy. 31. Gait dysfunction. 32. Deconditioning. 33. Constipation. 34. Hypovitaminosis D. 35. Prostatic hypertrophy. 36. Hyperlipidemia. 37. Hyperuricemia. 38. Hyperglycemia. 39. Uncontrolled diabetes mellitus with hyperglycemia. 40. Gait dysfunction. 41. History of poor compliance and noncompliance. 1. Left foot Pseudomonas aeruginosa and group B beta hemolytic strep, left foot diabetic foot ulceration and cellulitis. 2. Sepsis secondary to Pseudomonas aeruginosa and group B beta hemolytic strep, left diabetic foot ulceration and cellulitis. 3. Hypertension. 4. Tachycardia. 5. Anemia. 6. Status post packed red blood cell transfusion one unit. 7. Leukocytosis with granulocytosis. 8. Elevated erythrocyte sedimentation rate of 122. 9. Iron-deficiency. 10. Acute kidney injury with underlying chronic kidney disease, stage IV. 11. Uncontrolled diabetes mellitus with hyperglycemia and elevated hemoglobin A1c of 8.6 and elevated fructose, a mean of 329. 12. Transient lactic acidosis. 13. Transaminitis. 14. Hypertriglyceridemia. 15. Elevated C-reactive protein of greater than 15. 16. Gait dysfunction. 17. Deconditioning. 18. Metabolic acidosis. 19. 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 20. Severe mitral, tricuspid regurgitation and systolic congestive heart failure. 21. Left foot cellulitis and left foot diabetic ulceration. 22. Left diabetic foot ulceration and possible gangrene or pre-gangrenous condition of the left foot toes. 23. Left foot second digit amputation. 24. Peripheral vascular disease. 25. Left foot second toe amputation with cyanosis and mummification of the toes and forefoot of the left foot. 26. Severe tibial disease of the lower extremity. 27. Peripheral vascular disease. 28. Anemia of chronic disease. 29. Bilateral popliteal trifurcation and tibial disease. 30. Left anterior hemiblock. 1. Left foot Pseudomonas aeruginosa and group B Streptococcus beta hemolytic left foot cellulitis and diabetic foot ulcer. 2. Severe peripheral vascular disease of the lower extremity. 3. Normocytic anemia with decreasing hemoglobin. 4. Leukocytosis with granulocytosis. 5. Uncontrolled diabetes mellitus with hyperglycemia. 6. Acute kidney injury with underlying chronic kidney disease stage III/IV. 7. Transaminitis. 8. Probably anemia of chronic kidney disease. 9. Acute kidney injury with underlying chronic kidney disease. 10. Metabolic acidosis. 11. Hypertensive diabetic chronic kidney disease. 12. [id number] mitral regurgitation and [id number] tricuspid regurgitation. 13. Dilated cardiomyopathy with ejection fraction of 35%. 14. Sepsis. 15. Hypertension. 16. Gait dysfunction. 17. Deconditioning. 18. Bilateral lower extremity peripheral vascular disease. 19. History of poor compliance and noncompliance. 20. History of hyperuricemia and gout. 1. Left foot cellulitis versus gangrene versus pregangrenous state. 2. Sepsis. 3. Tachycardia. 4. Transient episodic hypotension. 5. Leukocytosis with granulocytosis 6. Elevated erythrocyte sedimentation rate of 122. 7. Normocytic anemia. 8. Chronic kidney disease stage 4 with acute kidney injury. 9. Uncontrolled noninsulin-requiring diabetes mellitus with hyperglycemia and hemoglobin A1c of 8.6. 10. Possible iron-deficiency. 11. Hypertriglyceridemia. 12. Elevated C-reactive protein of greater than 15. 13. Transient lactic acidosis. 14. Transaminitis. 15. Deconditioning. 16. Gait dysfunction. 17. Anemia with decreasing hemoglobin and hematocrit. 18. Metabolic acidosis. 19. Diabetic hypertensive chronic kidney disease. 20. Chronic kidney disease stage 3 without proteinuria. 21. Severe mitral and tricuspid regurgitation. 22. Systolic congestive heart failure. 23. Dilated ischemic cardiomyopathy, etiology undetermined. 1. Left foot cellulitis with diabetic foot disease and possible abscess versus possible osteomyelitis. 2. History of left foot second toe amputation. 3. Hypertension. 4. Tachycardia. 5. Fever. 6. Poor compliance and noncompliance. 7. Leukocytosis with granulocytosis. 8. Normocytic anemia. 9. Elevated erythrocyte sedimentation rate of 122. 10. Chronic kidney disease, stage IV with acute kidney injury. 11. Transient lactic acidosis. 12. History of hyperuricemia. 13. Hypertriglyceridemia. 14. Aortic calcification. 15. Bilateral lower extremity popliteal trifurcation and tibial peripheral vascular disease. 16. Left foot first metatarsophalangeal joint bony destruction and sclerosis, chronic osteomyelitis. 17. 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 18. 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 19. Sinus tachycardia with left anterior hemiblock. 20. Deconditioning. 21. History of poor compliance. 22. Chronic dilated ischemic cardiomyopathy with ejection fraction of . 23. History of hypertension. 24. History of heart failure with reduced ejection fraction of 35%. 25. Pulmonary hypertension with right ventricular systolic pressure of 40 mmHg. 26. Left ventricular global hypokinesis and moderately impaired left ventricular systolic function. 27. Mild aortic regurgitation. 28. Moderate to severe mitral regurgitation. 29. Moderate tricuspid regurgitation. 30. History of constipation. 31. Hypovitaminosis D. 32. History of iron-deficiency anemia. 33. Prostatic hypertrophy. 34. Insulin-requiring diabetes mellitus. 35. Hyperlipidemia. 36. History of peripheral vascular disease. 37. Hyperuricemia. 1. Left foot diabetic foot ulceration versus left foot abscess versus left foot toe osteomyelitis. 2. Tachycardia. 3. Leukocytosis with granulocytosis. 4. Questionable systemic inflammatory response syndrome. 5. Uncontrolled diabetes mellitus with hyperglycemia. 6. Chronic kidney disease stage IV. 7. Mild transaminitis. 8. History of hypertension. 9. Hyperlipidemia. 10. History of prostatic hypertrophy. 11. History of iron-deficiency anemia. 12. History of hypovitaminosis D. 13. History of dilated cardiomyopathy. 14. History of pulmonary hypertension. 15. History of moderate tricuspid regurgitation and mitral regurgitation. 16. Hyperuricemia. PLAN: At this time, the patient has been ordered repeat labs. Current consultation, Interventional Radiology, Podiatry, Cardiology, Vascular Surgery, Gastroenterology, Hematology, Oncology, Infectious Disease, Nephrology, Neurology. CURRENT MEDICATIONS: Aranesp 40 mcg weekly, Betadine solution to affected left foot once, Colace 100 mg three times a day, Dakin's solution 20 mL daily, Drisdol 50,000 units one dose given, aspirin 81 mg daily, ferrous sulfate 324 twice a day, Flomax 0.4 mg daily, heparin 5000 subcutaneous every 8 hours, Humalog medium dose sliding scale coverage, NPH insulin increased to 25 units breakfast, dinner to achieve normal glycemia, Lipitor 20 mg daily, Lopressor 25 mg every 8 hours, meropenem 500 IV every 12 hours, MiraLax 17 g twice a day, morphine 2 mg IV every 4 hours p.r.n., Nephro-Sumit 1 tablet daily, Percocet 5/325 one tablet every 4 hours p.r.n., Pletal 50 mg twice a day, Protonix 40 mg daily, Tylenol 650 mg p.o. suppository every 6 hours p.r.n., Zofran 4 mg IV every 4 hours p.r.n., allopurinol 100 mg daily. The patient has been ordered out of bed to chair, nonweightbearing to the left foot. Physical therapy and occupational therapy all ordered. Dictated and electronically signed, not read. Niranjan Ling MD MTDD
--- NOTE | 2018-11-27 13:56 | CP.PCM.PN ---
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 Renal function remains stable bp is reasonably controlled dose of aransep 40 mcg 11/17/18. K/L ratio remains high at 3.6. suggest hematology eval continue with flomax can give IVF as needed s: seen and examined no complaints Physical Examination: General Appearance: Comfortable, in no acute respiratory distress, co-operative . Vitals reviewed and noted as below Head; Atraumatic, normocephalic ENT: no ulcers no thrush. Tongue is midline. Oropharynx: no rash or ulcers. EYES: Pupils are equal, round and reactive to light accommodation. Eye muscles and extra-ocular movement intact. Sclera is anicteric. Neck; supple no lymphadenopathy, no thyromegaly or bruit Lungs: Normal respiratory rate/effort. Breath sounds bilateral equal and clear Heart: Incr rate. s1s2 normal. No rub or gallop. Extremities: no edema. No varicose veins. left foot in dressing Neurological: Patient is alert, awake and oriented to person, place and time. No focal deficit. Strength bilateral appropriate and equal Skin: Warm and dry. Normal turgor. No rash. Palpitation: Normal elasticity for age Abdomen: Abdomen is soft. Bowel sounds +. There is no abdominal tenderness, no guarding/rigidity no organomegaly Psych: lack insight and has normal affect/mood MSK: no joint tenderness or swelling. Digits and nails normal, no deformity : kidney or bladder not palpable. Labs/imaging reviewed. Past medical history, past surgical history, family history, social history, allergy reviewed and noted as below Family hx: no hx of CKD. Rest non-contributory Phos 3.5 TSAT 13% Vit D 41 PTH 49 LDL 103 kappa/lambda 3.4 uric acid 7.5 Objective - Vital Signs/Intake and Output Vital Signs (last 24 hours): Temp Pulse Resp BP Pulse Ox 98.6 F 108 H 17 100/53 L 97 11/27/18 06:00 11/27/18 06:00 11/27/18 06:00 11/27/18 13:46 11/27/18 06:00 Intake and Output: 11/27/18 11/27/18 06:59 18:59 Intake Total 240 480 Output Total 900 Balance -660 480 - Medications Medications: Current Medications Acetaminophen (Tylenol 325mg Tab) 650 mg PO Q6H PRN PRN Reason: Pain, moderate (4-7) Last Admin: 11/20/18 18:36 Dose: 650 mg Acetaminophen (Tylenol 650 Mg Supp) 650 mg RC Q6H PRN PRN Reason: TEMP>=99.5F Acetaminophen (Tylenol 325mg Tab) 650 mg PO Q6 PRN PRN Reason: TEMP>=99.5F Last Admin: 11/26/18 15:37 Dose: 650 mg Acetaminophen (Tylenol 650 Mg Supp) 650 mg RC Q6H PRN PRN Reason: TEMP>=99.5F Allopurinol (Zyloprim) 100 mg PO DAILY [facility] Last Admin: 11/27/18 10:35 Dose: 100 mg Aspirin (Ecotrin) 81 mg PO 0800 [facility] Last Admin: 11/27/18 10:33 Dose: 81 mg Atorvastatin Calcium (Lipitor) 20 mg PO DIN [facility] Last Admin: 11/26/18 17:45 Dose: 20 mg Cilostazol (Pletal) 50 mg PO BID [facility] Last Admin: 11/27/18 10:33 Dose: 50 mg Darbepoetin Arturo (Aranesp) 40 mcg SC QWK [facility] Last Admin: 11/25/18 23:20 Dose: 40 mcg Dextrose (Dextrose 50% Inj) 0 ml IV STAT PRN; Protocol PRN Reason: Hypoglycemia Protocol Docusate Sodium (Colace) 100 mg PO TID [facility] Last Admin: 11/27/18 13:44 Dose: 100 mg Ergocalciferol (Drisdol 50,000 Intl Units Cap) 1 cap PO ONCE ONE Stop: 11/28/18 10:01 Ferrous Sulfate (Feosol) 324 mg PO BID [facility] Last Admin: 11/27/18 10:34 Dose: 324 mg Heparin Sodium (Porcine) (Heparin) 5,000 units SC Q8 [facility]; Protocol Last Admin: 11/27/18 13:44 Dose: 5,000 units Meropenem/Sodium Chloride (Merrem Iv 500 Mg/Ns 50 Ml) 500 mg in 50 mls @ 100 mls/hr IVPB Q12 [facility]; Protocol Last Admin: 11/27/18 12:04 Dose: 100 mls/hr Dextrose (Dextrose 5% In Water 1000 Ml) 1,000 mls @ 0 mls/hr IV .Q0M PRN; Protocol PRN Reason: Hypoglycemia Protocol Insulin Human Lispro (Humalog Med) 0 units SC AC [facility]; Protocol Last Admin: 11/27/18 12:07 Dose: 8 units Insulin Human NPH ([facility]ulin N) [facility] Last Admin: 11/27/18 10:38 Dose: 25 unit Metoprolol Tartrate (Lopressor) 25 mg PO Q8H [facility] Last Admin: 11/27/18 13:46 Dose: Not Given Morphine Sulfate (Morphine) 2 mg IVP Q4H PRN PRN Reason: Pain, severe (8-10) Last Admin: 11/26/18 11:11 Dose: 2 mg Ondansetron HCl (Zofran Inj) 4 mg IVP Q4H PRN PRN Reason: Nausea/Vomiting Ondansetron HCl (Zofran Inj) 4 mg IVP Q4H PRN PRN Reason: Nausea/Vomiting Ondansetron HCl (Zofran Inj) 4 mg IVP ONCE PRN PRN Reason: Nausea/Vomiting Oxycodone/Acetaminophen (Percocet 5/325 Mg Tab) 1 tab PO Q4H PRN PRN Reason: Pain, moderate (4-7) Stop: 11/28/18 09:00 Last Admin: 11/26/18 23:03 Dose: 1 tab Pantoprazole Sodium (Protonix Ec Tab) 40 mg PO 0600 [facility] Last Admin: 11/27/18 05:45 Dose: 40 mg Polyethylene Glycol (Miralax) 17 gm PO BID [facility] Last Admin: 11/27/18 10:34 Dose: 17 gm Sodium Hypochlorite (Dakins Solution 0.25%) 20 ml TOP DAILY [facility] Tamsulosin HCl (Flomax) 0.4 mg PO 1830 [facility] Last Admin: 11/26/18 17:42 Dose: 0.4 mg Vitamin B Complex/Vit C/Folic Acid (Nephro-Sumit) 1 tab PO 0800 [facility] Last Admin: 11/27/18 10:33 Dose: 1 tab - Labs Labs: 11/27/18 07:00 11/27/18 07:00 PT 14.7 SECONDS (9.4-12.5) H 11/25/18 13:05 INR 1.30 11/25/18 13:05 APTT 26.3 Seconds (26.9-38.3) L 11/25/18 13:05
--- NOTE | 2018-11-28 01:18 | PN ---
DATE: 11/27/2018 SUBJECTIVE: The patient is in bed in no acute distress, nontoxic. OBJECTIVE: VITAL SIGNS: On exam; temperature is 98, blood pressure is 100/60, respiratory rate of 20, heart rate of 101. HEENT: Unremarkable. NECK: Supple. LUNGS: Have decreased breath sounds. HEART: Normal S1, S2. ABDOMEN: Soft. LABORATORY EXAMINATION: Reveals a white count of 13,000, hemoglobin of 10, BUN of 31, creatinine of 1.8. Review of orders reveals the patient to be on meropenem. ASSESSMENT AND PLAN: This is a 73-year-old male with status post left hallux and second metatarsal amputation, postoperative day #4 with a chronic left foot ulcer in a patient who is admitted with Pseudomonas and group B strep, on meropenem. We will follow with you. The patient has been afebrile now for the last 24 hours and leukocytosis appears to be improving, down to 13,000. Tai Landaverde MD
[2018-11-28] MEDS: Pantoprazole 40 mg EC Tab PO SCH (05:25)
[2018-11-28 07:47] LABS: BASO # 0.02 K/mm3 (0.0-2.0); BASO % 0.2 % (0.0-3.0); EOS # 0.5 (0.0-0.7); EOS % 3.8 % (1.5-5.0); LYMPH # 1.1 (1.2-3.4); LYMPH % 9.4 % (22.0-35.0); MEAN CELL VOLUME 93.2 fl (80.0-105.0); MEAN CORPUSCULAR HGB CONC 33.2 g/dl (31.0-37.0); MEAN PLATELET VOLUME 9.7 fl (7.0-11.0); MONO # 1.3 (0.1-0.6); MONO % 10.6 % (1.0-6.0); RBC 3.23 10^6/uL (3.5-6.1); RED CELL DISTRIBUTION WIDTH 16.5 % (11.5-14.5)
[2018-11-28 08:07] LABS: ALB/GLOB RATIO 0.9 (1.1-1.8); ALBUMIN 3.2 g/dL (3.0-4.8); BILIRUBIN,DIRECT 0.3 mg/dL (0.0-0.4); CALCIUM 8.6 mg/dL (8.4-10.5)
--- NOTE | 2018-11-28 08:21 | CP.PCM.PN ---
<Phi Mcnair D - Last Filed: 11/28/18 08:18> Subjective - Date & Time of Evaluation Date of Evaluation: 11/28/18 Time of Evaluation: 08:18 - Subjective Subjective: SURGERY NOTE FOR DR. SOSA 73M seen and examined at bedside. Patient doing well, no acute events overnight. Continues to complain of pain in the left foot, denies fevers or chills. Tolerating diet. Objective - Vital Signs/Intake and Output Vital Signs (last 24 hours): Temp Pulse Resp BP Pulse Ox 99.2 F 101 H 20 110/65 95 11/27/18 22:16 11/27/18 23:15 11/27/18 22:16 11/27/18 23:15 11/27/18 22:16 Intake and Output: 11/28/18 11/28/18 06:59 18:59 Intake Total 360 Output Total 800 Balance -440 - Medications Medications: Current Medications Acetaminophen (Tylenol 325mg Tab) 650 mg PO Q6H PRN PRN Reason: Pain, moderate (4-7) Last Admin: 11/27/18 22:01 Dose: 650 mg Acetaminophen (Tylenol 650 Mg Supp) 650 mg RC Q6H PRN PRN Reason: TEMP>=99.5F Acetaminophen (Tylenol 325mg Tab) 650 mg PO Q6 PRN PRN Reason: TEMP>=99.5F Last Admin: 11/26/18 15:37 Dose: 650 mg Acetaminophen (Tylenol 650 Mg Supp) 650 mg RC Q6H PRN PRN Reason: TEMP>=99.5F Allopurinol (Zyloprim) 100 mg PO DAILY [facility] Last Admin: 11/27/18 10:35 Dose: 100 mg Aspirin (Ecotrin) 81 mg PO 0800 [facility] Last Admin: 11/27/18 10:33 Dose: 81 mg Atorvastatin Calcium (Lipitor) 20 mg PO DIN [facility] Last Admin: 11/27/18 17:20 Dose: 20 mg Cilostazol (Pletal) 50 mg PO BID [facility] Last Admin: 11/27/18 17:27 Dose: 50 mg Darbepoetin Arturo (Aranesp) 40 mcg SC QWK [facility] Last Admin: 11/25/18 23:20 Dose: 40 mcg Dextrose (Dextrose 50% Inj) 0 ml IV STAT PRN; Protocol PRN Reason: Hypoglycemia Protocol Docusate Sodium (Colace) 100 mg PO TID [facility] Last Admin: 11/27/18 17:20 Dose: 100 mg Ergocalciferol (Drisdol 50,000 Intl Units Cap) 1 cap PO ONCE ONE Stop: 11/28/18 10:01 Ferrous Sulfate (Feosol) 324 mg PO BID [facility] Last Admin: 11/27/18 17:20 Dose: 324 mg Heparin Sodium (Porcine) (Heparin) 5,000 units SC Q8 [facility]; Protocol Last Admin: 11/28/18 05:25 Dose: 5,000 units Meropenem/Sodium Chloride (Merrem Iv 500 Mg/Ns 50 Ml) 500 mg in 50 mls @ 100 mls/hr IVPB Q12 [facility]; Protocol Last Admin: 11/27/18 21:59 Dose: 100 mls/hr Dextrose (Dextrose 5% In Water 1000 Ml) 1,000 mls @ 0 mls/hr IV .Q0M PRN; Protocol PRN Reason: Hypoglycemia Protocol Insulin Human Lispro (Humalog Med) 0 units SC AC [facility]; Protocol Last Admin: 11/27/18 17:20 Dose: 1 units Insulin Human NPH (Humulin N) [facility] Last Admin: 11/27/18 17:24 Dose: 25 unit Metoprolol Tartrate (Lopressor) 25 mg PO Q8H [facility] Last Admin: 11/27/18 22:00 Dose: 25 mg Morphine Sulfate (Morphine) 2 mg IVP Q4H PRN PRN Reason: Pain, severe (8-10) Last Admin: 11/26/18 11:11 Dose: 2 mg Ondansetron HCl (Zofran Inj) 4 mg IVP Q4H PRN PRN Reason: Nausea/Vomiting Ondansetron HCl (Zofran Inj) 4 mg IVP Q4H PRN PRN Reason: Nausea/Vomiting Ondansetron HCl (Zofran Inj) 4 mg IVP ONCE PRN PRN Reason: Nausea/Vomiting Oxycodone/Acetaminophen (Percocet 5/325 Mg Tab) 1 tab PO Q4H PRN PRN Reason: Pain, moderate (4-7) Stop: 11/28/18 09:00 Last Admin: 11/26/18 23:03 Dose: 1 tab Pantoprazole Sodium (Protonix Ec Tab) 40 mg PO 0600 [facility] Last Admin: 11/28/18 05:25 Dose: 40 mg Polyethylene Glycol (Miralax) 17 gm PO BID [facility] Last Admin: 11/27/18 17:24 Dose: 17 gm Sodium Hypochlorite (Dakins Solution 0.25%) 20 ml TOP DAILY [facility] Tamsulosin HCl (Flomax) 0.4 mg PO 1830 [facility] Last Admin: 11/27/18 17:20 Dose: 0.4 mg Vitamin B Complex/Vit C/Folic Acid (Nephro-Sumit) 1 tab PO 0800 [facility] Last Admin: 11/27/18 10:33 Dose: 1 tab - Labs Labs: 11/28/18 06:30 11/28/18 06:30 PT 14.7 SECONDS (9.4-12.5) H 11/25/18 13:05 INR 1.30 11/25/18 13:05 APTT 26.3 Seconds (26.9-38.3) L 11/25/18 13:05 - Constitutional Appears: Non-toxic, No Acute Distress - Respiratory Exam Respiratory Exam: Clear to Ausculation Bilateral, NORMAL BREATHING PATTERN - Cardiovascular Exam Cardiovascular Exam: REGULAR RHYTHM, +S1, +S2 - GI/Abdominal Exam GI & Abdominal Exam: Soft. absent: Distended, Firm, Guarding, Rigid, Tenderness, Rebound - Extremities Exam Additional comments: left foot wound opened Improving granulation tissue Betadine drying in place - Neurological Exam Neurological Exam: Alert, Awake Assessment and Plan - Assessment and Plan (Free Text) Assessment: 73M s/p left hallux amputation, 2nd metatarsal amputation, POD4 for chronic left foot non healing wound Plan: - continues wet to dry betadine dressing - begin dakin wet to dry dressing tomorrow - continue antibiotics per ID - Will return to OR this week for closure Further recs discuss with Dr. Ian Mcnair, PGY3 <Kain Sosa - Last Filed: 12/09/18 18:43> Objective - Vital Signs/Intake and Output Vital Signs (last 24 hours): Temp Pulse Resp BP Pulse Ox 98.4 F 94 H 20 97/62 L 100 12/09/18 13:44 12/09/18 13:44 12/09/18 13:44 12/09/18 13:44 12/09/18 13:44 Intake and Output: 12/09/18 12/09/18 06:59 18:59 Intake Total 480 Output Total 300 Balance 180 - Medications Medications: Current Medications Acetaminophen (Tylenol 325mg Tab) 650 mg PO Q6H PRN PRN Reason: Pain, Mild (1-3) Last Admin: 12/08/18 09:31 Dose: 650 mg Acetaminophen (Tylenol 325mg Tab) 650 mg PO Q6 PRN PRN Reason: Fever >100.4 F Dextrose (Dextrose 50% Inj) 0 ml IV STAT PRN; Protocol PRN Reason: Hypoglycemia Protocol Dextrose (Dextrose 50% Inj) 0 ml IV STAT PRN; Protocol PRN Reason: Hypoglycemia Protocol Docusate Sodium (Colace) 100 mg PO TID [facility] Last Admin: 12/09/18 18:14 Dose: 100 mg Famotidine (Pepcid) 20 mg PO 1000,2200 [facility] Stop: 12/11/18 10:01 Last Admin: 12/09/18 10:50 Dose: 20 mg Ferrous Gluconate (Fergon) 324 mg PO TID [facility] Last Admin: 12/09/18 18:14 Dose: 324 mg Heparin Sodium (Porcine) (Heparin) 5,000 units SC Q8 [facility]; Protocol Last Admin: 12/09/18 15:31 Dose: 5,000 units Dextrose (Dextrose 5% In Water 1000 Ml) 1,000 mls @ 0 mls/hr IV .Q0M PRN; Protocol PRN Reason: Hypoglycemia Protocol Meropenem/Sodium Chloride (Merrem Iv 500 Mg/Ns 50 Ml) 500 mg in 50 mls @ 100 mls/hr IVPB Q12 [facility]; Protocol Last Admin: 12/09/18 10:51 Dose: 100 mls/hr Dextrose (Dextrose 5% In Water 1000 Ml) 1,000 mls @ 0 mls/hr IV .Q0M PRN; Protocol PRN Reason: Hypoglycemia Protocol Insulin Human Lispro (Humalog Med) 0 units SC AC [facility]; Protocol Last Admin: 12/09/18 17:00 Dose: 1 units Insulin Human NPH (Humulin N) 17 units SC ACBD [facility] Last Admin: 12/09/18 17:03 Dose: 17 unit Midodrine (Proamatine) 5 mg PO TID [facility] Last Admin: 05/16/19 18:14 Dose: 5 mg Nystatin (Nystop Topical Powder) 0 gm TOP BID [facility] Last Admin: 12/09/18 18:17 Dose: 1 appl Ondansetron HCl (Zofran Inj) 4 mg IVP Q4H PRN PRN Reason: Nausea/Vomiting Pantoprazole Sodium (Protonix Ec Tab) 40 mg PO 0600 [facility] Last Admin: 12/09/18 05:37 Dose: 40 mg Polyethylene Glycol (Miralax) 17 gm PO BID [facility] Last Admin: 12/09/18 18:16 Dose: Not Given Sodium Hypochlorite (Dakins Solution 0.25%) 20 ml TOP DAILY [facility] Last Admin: 12/09/18 10:47 Dose: 1 applic Tamsulosin HCl (Flomax) 0.4 mg PO DAILY [facility] Last Admin: 12/09/18 10:49 Dose: 0.4 mg Vitamin B Complex/Vit C/Folic Acid (Nephro-Sumit) 1 tab PO 0800 [facility] Last Admin: 12/09/18 08:17 Dose: 1 tab - Labs Labs: 12/09/18 07:30 12/09/18 07:30 PT 14.7 SECONDS (9.4-12.5) H 11/25/18 13:05 INR 1.30 11/25/18 13:05 APTT 26.3 Seconds (26.9-38.3) L 11/25/18 13:05 Assessment and Plan - Assessment and Plan (Free Text) Plan: Patient was seen, evaluated and examined by me at the bedside. I agree with assessment and plan as stated in the resident's note.
[2018-11-28] MEDS: Cilostazol 50 mg Tab UD PO SCH (09:31)
[2018-11-28] MEDS: Multivitamin Vitamin B Complex (Nephro-Vite) Tab PO SCH (09:32)
[2018-11-28] MEDS: Insulin Lispro (humaLOG) MEDIUM Coverage SC SCH ×3 (09:40→16:32)
[2018-11-28] MEDS: Insulin Human NPH 1 UNITS/0.01 ML SC SCH ×2 (09:41→16:32)
[2018-11-28] MEDS: POLYETHYLENE GLYCOL 3350 17 GM/Dose PACKET PO SCH ×2 (09:42→17:22)
[2018-11-28] MEDS: MEROPENEM 500 MG in NS 500 MG/50 ML BAG IVPB SCH ×2 (09:53→21:39)
[2018-11-28] MEDS ORDERED: Ergocalciferol 50,000 Intl Units Cap PO ONE (10:00)
--- NOTE | 2018-11-28 10:05 | CP.PCM.PN ---
Subjective - Date & Time of Evaluation Date of Evaluation: 11/28/18 Time of Evaluation: 09:40 - Subjective Subjective: (covering for Dr. Ling) Patient is seen this morning in room 575 bed 2. He is lying in bed. He says he feels okay. Objective - Vital Signs/Intake and Output Vital Signs (last 24 hours): Temp Pulse Resp BP Pulse Ox 98.8 F 107 H 20 110/68 97 11/28/18 06:00 11/28/18 06:00 11/28/18 06:00 11/28/18 09:35 11/28/18 06:00 Intake and Output: 11/28/18 11/28/18 06:59 18:59 Intake Total 360 Output Total 800 Balance -440 - Medications Medications: Current Medications Acetaminophen (Tylenol 325mg Tab) 650 mg PO Q6H PRN PRN Reason: Pain, moderate (4-7) Last Admin: 11/27/18 22:01 Dose: 650 mg Acetaminophen (Tylenol 650 Mg Supp) 650 mg RC Q6H PRN PRN Reason: TEMP>=99.5F Acetaminophen (Tylenol 325mg Tab) 650 mg PO Q6 PRN PRN Reason: TEMP>=99.5F Last Admin: 11/26/18 15:37 Dose: 650 mg Acetaminophen (Tylenol 650 Mg Supp) 650 mg RC Q6H PRN PRN Reason: TEMP>=99.5F Allopurinol (Zyloprim) 100 mg PO DAILY [facility] Last Admin: 11/28/18 09:34 Dose: 100 mg Aspirin (Ecotrin) 81 mg PO 0800 [facility] Last Admin: 11/28/18 09:33 Dose: 81 mg Atorvastatin Calcium (Lipitor) 20 mg PO DIN [facility] Last Admin: 11/27/18 17:20 Dose: 20 mg Cilostazol (Pletal) 50 mg PO BID [facility] Last Admin: 11/28/18 09:31 Dose: 50 mg Darbepoetin Arturo (Aranesp) 40 mcg SC QWK [facility] Last Admin: 11/25/18 23:20 Dose: 40 mcg Dextrose (Dextrose 50% Inj) 0 ml IV STAT PRN; Protocol PRN Reason: Hypoglycemia Protocol Docusate Sodium (Colace) 100 mg PO TID [facility] Last Admin: 11/28/18 09:32 Dose: 100 mg Ergocalciferol (Drisdol 50,000 Intl Units Cap) 1 cap PO ONCE ONE Stop: 11/28/18 10:01 Last Admin: 11/28/18 09:31 Dose: 1 cap Ferrous Sulfate (Feosol) 324 mg PO BID [facility] Last Admin: 11/28/18 09:32 Dose: 324 mg Heparin Sodium (Porcine) (Heparin) 5,000 units SC Q8 [facility]; Protocol Last Admin: 11/28/18 05:25 Dose: 5,000 units Meropenem/Sodium Chloride (Merrem Iv 500 Mg/Ns 50 Ml) 500 mg in 50 mls @ 100 mls/hr IVPB Q12 [facility]; Protocol Last Admin: 11/28/18 09:53 Dose: 100 mls/hr Dextrose (Dextrose 5% In Water 1000 Ml) 1,000 mls @ 0 mls/hr IV .Q0M PRN; Protocol PRN Reason: Hypoglycemia Protocol Insulin Human Lispro (Humalog Med) 0 units SC AC [facility]; Protocol Last Admin: 11/28/18 09:40 Dose: 1 units Insulin Human NPH (Humulin N) 25 units SC ACBD [facility] Last Admin: 11/28/18 09:41 Dose: 25 unit Metoprolol Tartrate (Lopressor) 25 mg PO Q8H [facility] Last Admin: 11/28/18 09:35 Dose: 25 mg Morphine Sulfate (Morphine) 2 mg IVP Q4H PRN PRN Reason: Pain, severe (8-10) Last Admin: 11/26/18 11:11 Dose: 2 mg Ondansetron HCl (Zofran Inj) 4 mg IVP Q4H PRN PRN Reason: Nausea/Vomiting Ondansetron HCl (Zofran Inj) 4 mg IVP Q4H PRN PRN Reason: Nausea/Vomiting Ondansetron HCl (Zofran Inj) 4 mg IVP ONCE PRN PRN Reason: Nausea/Vomiting Pantoprazole Sodium (Protonix Ec Tab) 40 mg PO 0600 [facility] Last Admin: 11/28/18 05:25 Dose: 40 mg Polyethylene Glycol (Miralax) 17 gm PO BID [facility] Last Admin: 11/28/18 09:42 Dose: 17 gm Sodium Hypochlorite (Dakins Solution 0.25%) 20 ml TOP DAILY [facility] Tamsulosin HCl (Flomax) 0.4 mg PO 1830 [facility] Last Admin: 11/27/18 17:20 Dose: 0.4 mg Vitamin B Complex/Vit C/Folic Acid (Nephro-Sumit) 1 tab PO 0800 [facility] Last Admin: 11/28/18 09:32 Dose: 1 tab - Labs Labs: 11/28/18 06:30 11/28/18 06:30 PT 14.7 SECONDS (9.4-12.5) H 11/25/18 13:05 INR 1.30 11/25/18 13:05 APTT 26.3 Seconds (26.9-38.3) L 11/25/18 13:05 - Constitutional Appears: No Acute Distress - Head Exam Head Exam: ATRAUMATIC, NORMOCEPHALIC - Respiratory Exam Respiratory Exam: Clear to Ausculation Bilateral, NORMAL BREATHING PATTERN - Cardiovascular Exam Cardiovascular Exam: REGULAR RHYTHM, +S1, +S2 - GI/Abdominal Exam GI & Abdominal Exam: Soft, Normal Bowel Sounds. absent: Tenderness - Extremities Exam Additional comments: + left foot dressing - Neurological Exam Neurological Exam: Alert, Awake Assessment and Plan - Assessment and Plan (Free Text) Assessment: s/p left hallux and 2nd metatarsal amputation left foot ulcer with Psuedomonas, group B strep and proteus mirabilis CKD stage III Diabetes Hypertension PVD Anemia Plan: Patient is status post amputation of the left hallux and 2nd metatarsal of left foot. Most recent wound culture from 11/25/18 growing Proteus Mirabilis. Previous wound culture grew out Pseudomonas and Group B strep. continue Meropenem as per infectious disease. continue wound care as per surgery. Hemoglobin stable at 10.
[2018-11-28] MEDS: Oxycodone/Acetaminophen 5/325 mg Tab PO PRN (10:31)
--- NOTE | 2018-11-28 20:42 | PN ---
DATE: 11/28/2018 SUBJECTIVE: The patient is seen in bed, in no acute distress, and nontoxic. OBJECTIVE: VITAL SIGNS: Temperature is 98, blood pressure is 99/56, respiratory rate of 20, and heart rate of 107. HEENT: Unremarkable. NECK: Supple. LUNGS: Have decreased breath sounds. HEART: Normal S1 and S2. ABDOMEN: Soft. LABORATORY EXAMINATION: Reveals a white count of 12,000 and hemoglobin of 10. BUN of 31 and creatinine of 1.8. Lyme serology is nonreactive. ASSESSMENT AND PLAN: This is a 73-year-old male with status post left hallux and second metatarsal amputation postoperative day #5 with chronic foot ulcer and the patient was admitted with Pseudomonas and group B Streptococcus and meropenem, has been afebrile and white count is down to 12,000. Microbiology with Proteus mirabilis pansensitive and Pseudomonas also relatively sensitive organism, on meropenem. Tai Landaverde MD
[2018-11-28] MEDS ORDERED: Insulin Lispro 1 UNITS/0.01 ML SC STA (22:51)
[2018-11-29] MEDS: Pantoprazole 40 mg EC Tab PO SCH (05:56)
[2018-11-29 07:02] LABS: BASO # 0.04 K/mm3 (0.0-2.0); BASO % 0.4 % (0.0-3.0); EOS # 0.4 (0.0-0.7); EOS % 3.2 % (1.5-5.0); HEMOGLOBIN 10.5 g/dL (14.0-18.0); LYMPH # 1.4 (1.2-3.4); LYMPH % 12.2 % (22.0-35.0); MEAN CELL VOLUME 93.3 fl (80.0-105.0); MEAN CORPUSCULAR HEMOGLOBIN 30.8 pg (25.0-35.0); MEAN PLATELET VOLUME 9.4 fl (7.0-11.0); MONO # 0.9 (0.1-0.6); MONO % 8.5 % (1.0-6.0); RBC 3.41 10^6/uL (3.5-6.1); RED CELL DISTRIBUTION WIDTH 16.3 % (11.5-14.5)
[2018-11-29 07:31] LABS: ALB/GLOB RATIO 0.9 (1.1-1.8); ALBUMIN 3.4 g/dL (3.0-4.8); BILIRUBIN,DIRECT 0.3 mg/dL (0.0-0.4); CALCIUM 8.9 mg/dL (8.4-10.5)
[2018-11-29] MEDS: Insulin Lispro (humaLOG) MEDIUM Coverage SC SCH ×3 (08:15→17:20)
[2018-11-29] MEDS: Multivitamin Vitamin B Complex (Nephro-Vite) Tab PO SCH (08:15)
[2018-11-29] MEDS: Insulin Human NPH 1 UNITS/0.01 ML SC SCH ×2 (08:16→17:20)
[2018-11-29] MEDS: POLYETHYLENE GLYCOL 3350 17 GM/Dose PACKET PO SCH ×2 (10:09→17:20)
[2018-11-29] MEDS: Cilostazol 50 mg Tab UD PO SCH ×3 (10:12→17:23)
[2018-11-29] MEDS: MEROPENEM 500 MG in NS 500 MG/50 ML BAG IVPB SCH ×2 (10:45→21:47)
--- NOTE | 2018-11-29 11:22 | CP.PCM.PN ---
<Malinda Strickland - Last Filed: 11/29/18 11:51> Subjective - Date & Time of Evaluation Date of Evaluation: 11/29/18 Time of Evaluation: 06:35 - Subjective Subjective: General Surgery Dr. Bernstein Pt seen and examined @bedside. No acute events overnight. Pt has no complaints this AM. pt reports improved foot pain. denies F/C, N/V, abd pain. tolerating diet. Objective - Vital Signs/Intake and Output Vital Signs (last 24 hours): Temp Pulse Resp BP Pulse Ox 98.8 F 100 H 16 113/69 97 11/29/18 06:00 11/29/18 10:51 11/29/18 06:00 11/29/18 06:00 11/29/18 10:51 Intake and Output: 11/29/18 11/29/18 06:59 18:59 Intake Total 240 Output Total 800 Balance -560 - Medications Medications: Current Medications Acetaminophen (Tylenol 325mg Tab) 650 mg PO Q6H PRN PRN Reason: Pain, Mild (1-3) Acetaminophen (Tylenol 325mg Tab) 650 mg PO Q6 PRN PRN Reason: Fever >100.4 F Allopurinol (Zyloprim) 100 mg PO DAILY [facility] Last Admin: 11/29/18 10:09 Dose: 100 mg Aspirin (Ecotrin) 81 mg PO 0800 [facility] Last Admin: 11/29/18 08:15 Dose: 81 mg Atorvastatin Calcium (Lipitor) 20 mg PO DIN [facility] Last Admin: 11/28/18 17:21 Dose: 20 mg Cilostazol (Pletal) 50 mg PO BID [facility] Last Admin: 11/29/18 10:12 Dose: 50 mg Darbepoetin Arturo (Aranesp) 40 mcg SC QWK [facility] Last Admin: 11/25/18 23:20 Dose: 40 mcg Dextrose (Dextrose 50% Inj) 0 ml IV STAT PRN; Protocol PRN Reason: Hypoglycemia Protocol Docusate Sodium (Colace) 100 mg PO TID [facility] Last Admin: 11/29/18 10:10 Dose: 100 mg Ferrous Sulfate (Feosol) 324 mg PO BID [facility] Last Admin: 11/29/18 10:12 Dose: 324 mg Heparin Sodium (Porcine) (Heparin) 5,000 units SC Q8 [facility]; Protocol Last Admin: 11/29/18 05:56 Dose: 5,000 units Meropenem/Sodium Chloride (Merrem Iv 500 Mg/Ns 50 Ml) 500 mg in 50 mls @ 100 mls/hr IVPB Q12 [facility]; Protocol Last Admin: 11/29/18 10:45 Dose: 100 mls/hr Dextrose (Dextrose 5% In Water 1000 Ml) 1,000 mls @ 0 mls/hr IV .Q0M PRN; Protocol PRN Reason: Hypoglycemia Protocol Insulin Human Lispro (Humalog Med) 0 units SC AC [facility]; Protocol Last Admin: 11/29/18 08:15 Dose: 3 units Insulin Human NPH (Humulin N) 25 units SC ACBD [facility] Last Admin: 11/29/18 08:16 Dose: 25 unit Metoprolol Tartrate (Lopressor) 25 mg PO Q8H [facility] Last Admin: 11/29/18 05:55 Dose: 25 mg Morphine Sulfate (Morphine) 2 mg IVP Q4H PRN PRN Reason: Pain, severe (8-10) Last Admin: 11/26/18 11:11 Dose: 2 mg Ondansetron HCl (Zofran Inj) 4 mg IVP Q4H PRN PRN Reason: Nausea/Vomiting Oxycodone/Acetaminophen (Percocet 5/325 Mg Tab) 1 tab PO Q4H PRN PRN Reason: Pain, moderate (4-7) Stop: 12/01/18 09:59 Last Admin: 11/28/18 10:31 Dose: 1 tab Pantoprazole Sodium (Protonix Ec Tab) 40 mg PO 0600 [facility] Last Admin: 11/29/18 05:56 Dose: 40 mg Polyethylene Glycol (Miralax) 17 gm PO BID [facility] Last Admin: 11/29/18 10:09 Dose: 17 gm Sodium Hypochlorite (Dakins Solution 0.25%) 20 ml TOP DAILY [facility] Tamsulosin HCl (Flomax) 0.4 mg PO 1830 [facility] Last Admin: 11/28/18 17:22 Dose: 0.4 mg Vitamin B Complex/Vit C/Folic Acid (Nephro-Sumit) 1 tab PO 0800 [facility] Last Admin: 11/29/18 08:15 Dose: 1 tab - Labs Labs: 11/29/18 06:45 11/29/18 06:45 PT 14.7 SECONDS (9.4-12.5) H 11/25/18 13:05 INR 1.30 11/25/18 13:05 APTT 26.3 Seconds (26.9-38.3) L 11/25/18 13:05 - Constitutional Appears: Non-toxic, No Acute Distress - Head Exam Head Exam: NORMAL INSPECTION - Eye Exam Eye Exam: Normal appearance - ENT Exam ENT Exam: Mucous Membranes Moist - Respiratory Exam Respiratory Exam: NORMAL BREATHING PATTERN. absent: Accessory Muscle Use, Respiratory Distress - Cardiovascular Exam Cardiovascular Exam: absent: Bradycardia, Tachycardia - GI/Abdominal Exam GI & Abdominal Exam: Soft. absent: Distended, Tenderness - Extremities Exam Additional comments: Left foot wound w/ necrotic edges and 3rd toe good granulation tissue to dorsal foot wound - Neurological Exam Neurological Exam: Alert, Awake - Psychiatric Exam Psychiatric exam: Normal Affect, Normal Mood - Skin Skin Exam: Dry, Warm Assessment and Plan - Assessment and Plan (Free Text) Assessment: 73M s/p left hallux amputation, 2nd metatarsal amputation, POD#5 for chronic left foot non healing wound Plan: - BID wet to dry dressing w/ Dakin's solution - cont Abx per ID - cont pain management - Plan for OR for definitive TMA Further recs discussed w/ Dr. Ian Strickland PGY3 <Kain Sosa - Last Filed: 12/09/18 18:42> Objective - Vital Signs/Intake and Output Vital Signs (last 24 hours): Temp Pulse Resp BP Pulse Ox 98.4 F 94 H 20 97/62 L 100 12/09/18 13:44 12/09/18 13:44 12/09/18 13:44 12/09/18 13:44 12/09/18 13:44 Intake and Output: 12/09/18 12/09/18 06:59 18:59 Intake Total 480 Output Total 300 Balance 180 - Medications Medications: Current Medications Acetaminophen (Tylenol 325mg Tab) 650 mg PO Q6H PRN PRN Reason: Pain, Mild (1-3) Last Admin: 12/08/18 09:31 Dose: 650 mg Acetaminophen (Tylenol 325mg Tab) 650 mg PO Q6 PRN PRN Reason: Fever >100.4 F Dextrose (Dextrose 50% Inj) 0 ml IV STAT PRN; Protocol PRN Reason: Hypoglycemia Protocol Dextrose (Dextrose 50% Inj) 0 ml IV STAT PRN; Protocol PRN Reason: Hypoglycemia Protocol Docusate Sodium (Colace) 100 mg PO TID [facility] Last Admin: 12/09/18 18:14 Dose: 100 mg Famotidine (Pepcid) 20 mg PO 1000,2200 [facility] Stop: 12/11/18 10:01 Last Admin: 12/09/18 10:50 Dose: 20 mg Ferrous Gluconate (Fergon) 324 mg PO TID [facility] Last Admin: 12/09/18 18:14 Dose: 324 mg Heparin Sodium (Porcine) (Heparin) 5,000 units SC Q8 [facility]; Protocol Last Admin: 12/09/18 15:31 Dose: 5,000 units Dextrose (Dextrose 5% In Water 1000 Ml) 1,000 mls @ 0 mls/hr IV .Q0M PRN; Protocol PRN Reason: Hypoglycemia Protocol Meropenem/Sodium Chloride (Merrem Iv 500 Mg/Ns 50 Ml) 500 mg in 50 mls @ 100 mls/hr IVPB Q12 [facility]; Protocol Last Admin: 12/09/18 10:51 Dose: 100 mls/hr Dextrose (Dextrose 5% In Water 1000 Ml) 1,000 mls @ 0 mls/hr IV .Q0M PRN; Protocol PRN Reason: Hypoglycemia Protocol Insulin Human Lispro (Humalog Med) 0 units SC AC [facility]; Protocol Last Admin: 12/09/18 17:00 Dose: 1 units Insulin Human NPH (Humulin N) [facility] Last Admin: 12/09/18 17:03 Dose: 17 unit Midodrine (Proamatine) 5 mg PO TID [facility] Last Admin: 12/09/18 18:14 Dose: 5 mg Nystatin (Nystop Topical Powder) 0 gm TOP BID [facility] Last Admin: 12/09/18 18:17 Dose: 1 appl Ondansetron HCl (Zofran Inj) 4 mg IVP Q4H PRN PRN Reason: Nausea/Vomiting Pantoprazole Sodium (Protonix Ec Tab) 40 mg PO 0600 [facility] Last Admin: 12/09/18 05:37 Dose: 40 mg Polyethylene Glycol (Miralax) 17 gm PO BID [facility] Last Admin: 12/09/18 18:16 Dose: Not Given Sodium Hypochlorite (Dakins Solution 0.25%) 20 ml TOP DAILY [facility] Last Admin: 12/09/18 10:47 Dose: 1 applic Tamsulosin HCl (Flomax) 0.4 mg PO DAILY [facility] Last Admin: 12/09/18 10:49 Dose: 0.4 mg Vitamin B Complex/Vit C/Folic Acid (Nephro-Sumit) 1 tab PO 0800 [facility] Last Admin: 12/09/18 08:17 Dose: 1 tab - Labs Labs: 12/09/18 07:30 12/09/18 07:30 PT 14.7 SECONDS (9.4-12.5) H 11/25/18 13:05 INR 1.30 11/25/18 13:05 APTT 26.3 Seconds (26.9-38.3) L 11/25/18 13:05 Assessment and Plan - Assessment and Plan (Free Text) Plan: Patient was seen, evaluated and examined by me at the bedside. I agree with assessment and plan as stated in the resident's note.
--- NOTE | 2018-11-29 11:22 | PN ---
DATE: 11/29/2018 SUBJECTIVE: The patient is still in room 575, bed 2. Overnight nurse's notes were reviewed. The patient had episodic confusion which was noted. REVIEW OF SYSTEMS: A 14 system review was done, pertinent positive and negative as dictated above. PHYSICAL EXAMINATION VITAL SIGNS: T-max 98.8, heart rate 95 to 112, blood pressure 113/69, respirations 16, O2 sat 96%. HEENT: Head is normocephalic, atraumatic. HEENT examination shows pinkish pale conjunctivae. Anicteric sclerae. No oropharyngeal lesion. NECK: No neck rigidity. CHEST: Kyphosis. CARDIOPULMONARY: S1, S2, regular rhythm. Questionable soft systolic murmur at the left sternal border, right second intercostal space, left second intercostal space. LUNGS: Shows no audible crackle, rales or wheezing. Occasional upper lung field, anterior rhonchi. ABDOMEN: Soft. Positive bowel sounds. No palpable hepatosplenomegaly. GENITALIA: Male. RECTAL: Deferred. EXTREMITIES: Shows positive left foot dressing. No pitting edema, no calf tenderness, no Homans' sign. NEUROLOGIC: The patient is alert, awake, responsive, is able to move upper and lower extremity without assistance. Gait examination is not tested, but the patient has been found to be intermittently and confused and disoriented and only oriented to his name. MUSCULOSKELETAL: As per the body mass index. DIAGNOSTIC DATA: WBC is 11.0, hemoglobin and hematocrit 10.5 and 32, platelets 530, granulocyte 76% segs. Sodium 136, potassium 4.5, chloride 99, CO2 of 29, BUN 33, creatinine 1.8, glucose 206, calcium 8.9, phosphorus 3.3, magnesium 2.1. Left foot cultures are growing Proteus mirabilis, Pseudomonas aeruginosa, and beta hemolytic strep group B. IMPRESSION AND PLAN: 1. Pseudomonas aeruginosa, Proteus mirabilis and beta hemolytic group B Streptococcus, left foot diabetic ulceration and gangrene. 2. Status post status post left foot great toe amputation and metatarsal amputation. 3. Status post removal of the second and third toe nail. 4. Status post left foot wound debridement. 5. Severe peripheral vascular disease of the lower extremity with ankle-brachial indexes of less than 1. 6. History of chronic osteomyelitis of the left foot. 7. Normocytic anemia. 8. Refractory leukocytosis, slow resolving. 9. Reactive thrombocytosis. 10. Leukocytosis with granulocytosis. 11. Status post packed red blood cell transfusion x3. 12. Hypertensive and diabetic chronic kidney disease stage III. 13. Uncontrolled diabetes mellitus with hyperglycemia and elevated hemoglobin A1c. 14. Deconditioning. 15. Gait dysfunction. 16. Questionable delirium versus encephalopathy versus transient confusional and disorientation state. 17. History of hyperuricemia and gout. 18. History of poor compliance, noncompliance. 19. Tachycardia. 20. High-grade fever. 21. Transient hypotension. 22. Dilated cardiomyopathy with left ventricular ejection fraction of 35%. 23. Severe mitral and tricuspid regurgitation. 24. Severe peripheral vascular disease of the lower extremity. 1. Sepsis, secondary to left foot diabetic foot ulceration secondary to Proteus mirabilis, Pseudomonas aeruginosa, beta hemolytic group B strep. 2. High-grade fever. 3. Tachycardia. 4. Episodic hypotension. 5. Leukocytosis with granulocytosis. 6. Acute kidney injury with underlying chronic kidney disease stage 4. 7. Uncontrolled non-insulin requiring diabetes mellitus with hyperglycemia and elevated hemoglobin A1c and elevated fructosamine of 329. 8. Episodic disorientation and confusion, possible questionable delirium versus toxic metabolic encephalopathy. 9. Proteinuria, microscopic hematuria, bacteriuria. 10. Monoclonal gammopathy, of unknown significance. 11. Metabolic acidosis. 12. Hypertensive, diabetic, chronic kidney disease stage 3. 13. Severe mitral, tricuspid regurgitation with systolic congestive heart failure and cardiomyopathy with ejection fraction of 35%. 14. Left foot grade 2 amputation, second metatarsal amputation, and third and fourth toe toenail removal and wound debridement. 15. Cardiomyopathy. 16. Severe peripheral vascular disease of the lower extremity. 17. Persistent refractory leukocytosis. 18. Chronic microvascular ischemic disease of the brain and cerebral cortical atrophy of the brain. 19. Gait dysfunction. 20. Deconditioning. 21. Transient confusion state secondary to transient cerebral hypoperfusion and hyperglycemic fluctuations. 1. Status post left foot great toe amputation and second metatarsal amputation and third and fourth digit toenail removal and left foot wound debridement, postop day #1. 2. Chronic nonhealing left foot diabetic foot ulceration and possible gangrene. 3. Fever. 4. Tachycardia. 5. Hypotension. 6. Persistent refractory leukocytosis with granulocytosis. 7. Normocytic anemia, status post packed red blood cell transfusion x3. 8. Uncontrolled diabetes mellitus with hyperglycemia and elevated hemoglobin A1c of 8.6. 9. Hyper fructosemia. 10. Lactic acidosis. 11. Hyperuricemia. 12. Possible iron-deficiency. 13. Elevated C-reactive protein of greater than 15. 14. Hypertriglyceridemia. 15. Proteinuria. 16. Microscopic hematuria. 17. Bacteriuria. 18. Elevated total kappa lambda ratio. 19. Pseudomonas aeruginosa and beta hemolytic strep group B left foot diabetic foot ulceration. 20. Status post packed red blood cell transfusion x3. 21. Left foot cellulitis. 22. Chronic microvascular ischemic disease of the brain and cerebral cortical atrophy of the brain. 23. Sepsis with Pseudomonas aeruginosa and group B Streptococcus beta hemolytic Streptococcus left foot diabetic foot ulcerations and cellulitis. 24. Kidney injury with underlying chronic kidney disease. 25. Hypertensive diabetic chronic kidney disease. 26. Stage III chronic kidney disease secondary to hypertension and vasculopathy. 27. Anemia. 28. Monoclonal gammopathy of unknown significance. 29. Transient and episodic confusion and disorientation, probably secondary to transient cerebral hypoperfusion and uncontrolled diabetes mellitus. 30. Sepsis. 1. Group B Streptococcus and Pseudomonas aeruginosa, left foot diabetic foot ulceration and gangrene and cellulitis. 2. History of chronic osteomyelitis of the left foot. 3. High-grade fever. 4. Questionable sepsis versus systemic inflammatory response syndrome. 5. Tachycardia. 6 Hypotension. 7. Questionable and possible encephalopathy versus toxic metabolic encephalopathy with episodic confusion and disorientation. 8. Type 2 diabetes mellitus. 9. Anemia of chronic disease. 10. Status post packed red blood cell transfusion x2. 11. Gait dysfunction. 12. Deconditioning. 13. Status post left foot big toe amputation,2nd metatarsal amputation, wound debridement and 3rd and 4th toe nail removal. 14. Persistent refractory leukocytosis with granulocytosis 15. Normocytic anemia. 16. Uncontrolled type 2 diabetes mellitus with hyperglycemia. 17. Microvascular ischemic disease of the brain. 18. Cerebral cortical atrophy of the brain. 19. Gait dysfunction with nonweightbearing status of the left foot. 20. Severe peripheral vascular disease of the lower extremity with severe bilateral tibial and distal lower extremities severe occlusive disease with ankle-brachial index is of less than 1. 21. History of hypertension. 22. History of gout and hyperuricemia. 23. History of gouty arthritis. 24. Dilated cardiomyopathy with ejection fraction of 35% with severe mitral and tricuspid regurgitation. 25. Acute kidney injury with underlying chronic kidney disease stage III. 26. Proteinuria and microscopic hematuria. 1. High-grade fever and new fever. 2. Tachycardia. 3. Hypotension. 4. Questionable sepsis versus systemic inflammatory response syndrome with high-grade fever, tachycardia, hypotension. 5. Persistent refractory leukocytosis with granulocytosis. 6. Normocytic anemia. 7. Status post packed red blood cell transfusion x2. 8. Uncontrolled type 2 noninsulin-requiring diabetes mellitus with hyperglycemia. 9. Left foot Pseudomonas aeruginosa, group B Streptococcus with beta-hemolytic left foot, and left foot diabetic ulceration and possible diabetic left foot gangrene. 10. Proteinuria. 11. Microscopic hematuria. 12. Bacteriuria. 13. Left foot group B streptococcal beta-hemolytic and Pseudomonas aeruginosa left foot diabetic foot ulceration. 14. Episodic disorientation and confusion, etiology undetermined. 15. Questionable toxic metabolic encephalopathy. 16. Hyperglycemia secondary to uncontrolled diabetes mellitus. 17. Status post packed red blood cell transfusion x2. 18. Persistent refractory leukocytosis. 19. Left foot diabetic ulceration and diabetic cellulitis. 20. Dilated cardiomyopathy. 21. History of poor compliance and noncompliance. 22. History of hyperuricemia and gout. 23. 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 24. Gait dysfunction. 25. Deconditioning. 1. Left foot diabetic ulceration and nonhealing diabetic ulceration with possible diabetic gangrene of the left foot and great toe and the left foot toes with group B Streptococcus and Pseudomonas aeruginosa, cellulitis and diabetic foot gangrene of the left foot. 2. Uncontrolled diabetes mellitus with elevated hemoglobin A1c. 3. Fever. 4. Questionable sepsis. 5. Tachycardia. 6. Possible sepsis versus systemic inflammatory response syndrome. 7. Fever. 8. Transient hypotension. 9. Dilated cardiomyopathy. 10. Persistent refractory leukocytosis. 11. Normocytic anemia status post packed red blood cell transfusion. 12. Granulocytosis. 13. Acute kidney injury with underlying chronic kidney disease, stage IV. 14. Uncontrolled diabetes mellitus with hyperglycemia and an elevated hemoglobin A1c and hyperfructosemia. 15. History of poor compliance and noncompliance. 16. History of hyperuricemia and gout. 17. Severe peripheral vascular disease. 18. History of severe peripheral vascular disease of the lower extremity. 19. Severe mitral and tricuspid regurgitation. 20. Cardiomyopathy with ejection fraction of around 35%. 21. History of poor compliance. 22. History of chronic osteomyelitis of the left foot and partial amputation of the left foot second toe. 1. Fever. 2. Sinus tachycardia. 3. Pseudomonas nose group. Group B streptococcus group B beta hemolytic left foot diabetic foot ulcerations and cellulitis and gangrene. 4. Severe peripheral vascular disease. 5. Persistent refractory leukocytosis with granulocytosis. 6. Anemia with decreasing hemoglobin/hematocrit. 7. Elevated erythrocyte sedimentation rate of 122. 8. Chronic kidney disease, stage 3. 9. Hyperglycemia secondary to uncontrolled diabetes mellitus with hemoglobin A1c of 8.6 and hyper fructose anemia. 10. Transaminitis. 11. Iron-deficiency anemia. 12. Hypertriglyceridemia. 13. Elevated C-reactive protein of greater than 15. 14. Lactic acidosis. 15. Status post packed red blood cell transfusions x2. 16. Left foot erosive changes. 17. Severe peripheral vascular disease of bilateral popliteal trifurcation and tibial disease with normal resting ankle-brachial indices. 18. Chronic osteomyelitis of the left foot with bony destruction and sclerosis around the first metatarsophalangeal joint and partial amputation of the second proximal phalanx. 19. Severe degenerative joint disease of the left midfoot. 20. Left axis deviation. 21. Acute kidney injury with underlying chronic kidney disease. 22. Metabolic acidosis. 23. Hypertensive diabetic chronic kidney disease stage 3 without proteinuria. 24. Monoclonal gammopathy of unknown significance. 25. Severe mitral, tricuspid regurgitation with cardiomyopathy, left ventricular ejection fraction of 35% to 40%. 26. Left foot diabetic foot ulceration and gangrene. 27. Congestive heart failure with reduced ejection fraction. 28. Nonhealing left foot diabetic ulceration. 29. Sepsis with left foot cellulitis and diabetic foot ulceration with Pseudomonas secondary to Pseudomonas aeruginosa and Streptococcus group B beta hemolytic Streptococcus. 30. Questionable and possible delirium versus encephalopathy. 31. Gait dysfunction. 32. Deconditioning. 33. Constipation. 34. Hypovitaminosis D. 35. Prostatic hypertrophy. 36. Hyperlipidemia. 37. Hyperuricemia. 38. Hyperglycemia. 39. Uncontrolled diabetes mellitus with hyperglycemia. 40. Gait dysfunction. 41. History of poor compliance and noncompliance. 1. Left foot Pseudomonas aeruginosa and group B beta hemolytic strep, left foot diabetic foot ulceration and cellulitis. 2. Sepsis secondary to Pseudomonas aeruginosa and group B beta hemolytic strep, left diabetic foot ulceration and cellulitis. 3. Hypertension. 4. Tachycardia. 5. Anemia. 6. Status post packed red blood cell transfusion one unit. 7. Leukocytosis with granulocytosis. 8. Elevated erythrocyte sedimentation rate of 122. 9. Iron-deficiency. 10. Acute kidney injury with underlying chronic kidney disease, stage IV. 11. Uncontrolled diabetes mellitus with hyperglycemia and elevated hemoglobin A1c of 8.6 and elevated fructose, a mean of 329. 12. Transient lactic acidosis. 13. Transaminitis. 14. Hypertriglyceridemia. 15. Elevated C-reactive protein of greater than 15. 16. Gait dysfunction. 17. Deconditioning. 18. Metabolic acidosis. 19. 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 20. Severe mitral, tricuspid regurgitation and systolic congestive heart failure. 21. Left foot cellulitis and left foot diabetic ulceration. 22. Left diabetic foot ulceration and possible gangrene or pre-gangrenous condition of the left foot toes. 23. Left foot second digit amputation. 24. Peripheral vascular disease. 25. Left foot second toe amputation with cyanosis and mummification of the toes and forefoot of the left foot. 26. Severe tibial disease of the lower extremity. 27. Peripheral vascular disease. 28. Anemia of chronic disease. 29. Bilateral popliteal trifurcation and tibial disease. 30. Left anterior hemiblock. 1. Left foot Pseudomonas aeruginosa and group B Streptococcus beta hemolytic left foot cellulitis and diabetic foot ulcer. 2. Severe peripheral vascular disease of the lower extremity. 3. Normocytic anemia with decreasing hemoglobin. 4. Leukocytosis with granulocytosis. 5. Uncontrolled diabetes mellitus with hyperglycemia. 6. Acute kidney injury with underlying chronic kidney disease stage III/IV. 7. Transaminitis. 8. Probably anemia of chronic kidney disease. 9. Acute kidney injury with underlying chronic kidney disease. 10. Metabolic acidosis. 11. Hypertensive diabetic chronic kidney disease. 12. [id number] mitral regurgitation and [id number] tricuspid regurgitation. 13. Dilated cardiomyopathy with ejection fraction of 35%. 14. Sepsis. 15. Hypertension. 16. Gait dysfunction. 17. Deconditioning. 18. Bilateral lower extremity peripheral vascular disease. 19. History of poor compliance and noncompliance. 20. History of hyperuricemia and gout. 1. Left foot cellulitis versus gangrene versus pregangrenous state. 2. Sepsis. 3. Tachycardia. 4. Transient episodic hypotension. 5. Leukocytosis with granulocytosis 6. Elevated erythrocyte sedimentation rate of 122. 7. Normocytic anemia. 8. Chronic kidney disease stage 4 with acute kidney injury. 9. Uncontrolled noninsulin-requiring diabetes mellitus with hyperglycemia and hemoglobin A1c of 8.6. 10. Possible iron-deficiency. 11. Hypertriglyceridemia. 12. Elevated C-reactive protein of greater than 15. 13. Transient lactic acidosis. 14. Transaminitis. 15. Deconditioning. 16. Gait dysfunction. 17. Anemia with decreasing hemoglobin and hematocrit. 18. Metabolic acidosis. 19. Diabetic hypertensive chronic kidney disease. 20. Chronic kidney disease stage 3 without proteinuria. 21. Severe mitral and tricuspid regurgitation. 22. Systolic congestive heart failure. 23. Dilated ischemic cardiomyopathy, etiology undetermined. 1. Left foot cellulitis with diabetic foot disease and possible abscess versus possible osteomyelitis. 2. History of left foot second toe amputation. 3. Hypertension. 4. Tachycardia. 5. Fever. 6. Poor compliance and noncompliance. 7. Leukocytosis with granulocytosis. 8. Normocytic anemia. 9. Elevated erythrocyte sedimentation rate of 122. 10. Chronic kidney disease, stage IV with acute kidney injury. 11. Transient lactic acidosis. 12. History of hyperuricemia. 13. Hypertriglyceridemia. 14. Aortic calcification. 15. Bilateral lower extremity popliteal trifurcation and tibial peripheral vascular disease. 16. Left foot first metatarsophalangeal joint bony destruction and sclerosis, chronic osteomyelitis. 17. 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 18. 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 19. Sinus tachycardia with left anterior hemiblock. 20. Deconditioning. 21. History of poor compliance. 22. Chronic dilated ischemic cardiomyopathy with ejection fraction of . 23. History of hypertension. 24. History of heart failure with reduced ejection fraction of 35%. 25. Pulmonary hypertension with right ventricular systolic pressure of 40 mmHg. 26. Left ventricular global hypokinesis and moderately impaired left ventricular systolic function. 27. Mild aortic regurgitation. 28. Moderate to severe mitral regurgitation. 29. Moderate tricuspid regurgitation. 30. History of constipation. 31. Hypovitaminosis D. 32. History of iron-deficiency anemia. 33. Prostatic hypertrophy. 34. Insulin-requiring diabetes mellitus. 35. Hyperlipidemia. 36. History of peripheral vascular disease. 37. Hyperuricemia. 1. Left foot diabetic foot ulceration versus left foot abscess versus left foot toe osteomyelitis. 2. Tachycardia. 3. Leukocytosis with granulocytosis. 4. Questionable systemic inflammatory response syndrome. 5. Uncontrolled diabetes mellitus with hyperglycemia. 6. Chronic kidney disease stage IV. 7. Mild transaminitis. 8. History of hypertension. 9. Hyperlipidemia. 10. History of prostatic hypertrophy. 11. History of iron-deficiency anemia. 12. History of hypovitaminosis D. 13. History of dilated cardiomyopathy. 14. History of pulmonary hypertension. 15. History of moderate tricuspid regurgitation and mitral regurgitation. 16. Hyperuricemia. PLAN: At this time, the patient is awaiting for further vascular surgical intervention regarding left foot management. The patient is to be continued on all the therapeutic intervention as per the MAR of today with continuation of the IV antibiotics as per the Infectious Disease. The patient will continue with the pharmacological, non-pharmacological, GI DVT prophylaxis. In addition, the patient will be continued on nonweightbearing to the left foot. At present, Vascular Surgery is is awaiting further surgical and definitive treatment and surgical intervention regarding the patient's care whether transmetatarsal amputation versus left below-knee amputation. The patient's condition, diagnosis, treatment options overall guarded to poor prognosis and complex multiple comorbidity and decompensated patient's state and multiple organ dysfunction was explained to the patient's daughter and the son at length and all questions concerned answered which they acknowledged and understand. The patient will be continued on all the therapeutic intervention as per the MAR of today, which is reviewed. The patient will be ordered serial labs. The patient will be followed up closely by all the consultants services on the case including Vascular Surgery Interventional Radiology, Podiatry, Gastroenterology, Hematology/Oncology, Nephrology Vascular Surgery. At present, the patient will be continued on all the therapeutic intervention. The patient has been ordered out of bed to chair. Dictated and electronically signed, not read. Niranjan Ling MD [facility]
[2018-11-29] MEDS ORDERED: HYDROmorphone 1 mg/ml ISec IVP STA (11:38)
[2018-11-29] MEDS: Morphine 2 mg/ml ISec IVP PRN (11:45)
--- NOTE | 2018-11-29 12:01 | CP.PCM.PCO ---
Physician Communication Note - Physician Communication Note Physician Communication Note: possible TMA Thurs as per surgery
--- NOTE | 2018-11-29 12:13 | CP.PCM.PN ---
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 stable renal fxn Hypertension control with meds as ordered. Maintain hemodynamics stable. Avoid hypotension. Patient not on ACEI/ARB due to EMIL and hyperkalemia tendency. consider to add once stable. Monitor Input/Output, daily weights and renal function with basic metabolic panel continue with iron and MVI. PRBC as needed. dose of aransep 40 mcg 11/17/18. K/L ratio remains high at 3.6. pending hematology eval vit d can be changed to once a month as last level 41 continue with flomax can give IVF as needed plan for TMA this week Dose meds/antibiotics for reduced GFR. Avoid fleets enema/magnesium based laxatives. Avoid nephrotoxins/NSAIDs/ iodinated contrast (unless needed emergently) Glycemic control Further work up/management as per primary team Thanks for allowing me to participate in care of your patient. Will follow patient with you. Please call if any Qs. had d/w team and son Dr Anjum Padron Office: [phone] Chief Complaint; Foot ulcer Reason for consult: Acute Kidney Injury HPI: Pt is a 73 M with hx of diabetes Mellitus (30 years), hypertension (years) PVD, Gout CKD 3 with baseline cr 1.8-1.9 presented with complaints of foot ulcer, being managed for cellulitis. seen for EMIL and pt also with PVD Denies OTC/herbal meds or NSAIDs. No recent iodinated contrast exposure. Noted obvious episodes of low BP. pt still not aware about kidney disease in past ROS: noted overnight events Cardiovascular: No chest pain. Pulmonary: No shortness of breath Gastrointestinal: denies abdominal pain No nausea. No vomiting. Genitourinary: No pain while urinating. Denies blood in urine. All other negative except as mentioned in HPI. per son, pt refused to go for outpt follow ups Physical Examination: General Appearance: Comfortable, in no acute respiratory distress, co-operative . Vitals reviewed and noted as below Head; Atraumatic, normocephalic ENT: no ulcers no thrush. Tongue is midline. Oropharynx: no rash or ulcers. EYES: Pupils are equal, round and reactive to light accommodation. Eye muscles and extra-ocular movement intact. Sclera is anicteric. Neck; supple no lymphadenopathy, no thyromegaly or bruit Lungs: Normal respiratory rate/effort. Breath sounds bilateral equal and clear Heart: Incr rate. s1s2 normal. No rub or gallop. Extremities: no edema. No varicose veins. left foot in dressing Neurological: Patient is alert, awake and oriented to person, place and time. No focal deficit. Strength bilateral appropriate and equal Skin: Warm and dry. Normal turgor. No rash. Palpitation: Normal elasticity for age Abdomen: Abdomen is soft. Bowel sounds +. There is no abdominal tenderness, no guarding/rigidity no organomegaly Psych: lack insight and has normal affect/mood MSK: no joint tenderness or swelling. Digits and nails normal, no deformity : kidney or bladder not palpable. Labs/imaging reviewed. Past medical history, past surgical history, family history, social history, allergy reviewed and noted as below Family hx: no hx of CKD. Rest non-contributory Phos 3.5 TSAT 13% Vit D 41 PTH 49 LDL 103 kappa/lambda 3.4 uric acid 7.5 renal cyst left side Objective - Vital Signs/Intake and Output Vital Signs (last 24 hours): Temp Pulse Resp BP Pulse Ox 98.8 F 100 H 16 113/69 97 11/29/18 06:00 11/29/18 10:51 11/29/18 06:00 11/29/18 06:00 11/29/18 10:51 Intake and Output: 11/29/18 11/29/18 06:59 18:59 Intake Total 240 Output Total 800 Balance -560 - Medications Medications: Current Medications Acetaminophen (Tylenol 325mg Tab) 650 mg PO Q6H PRN PRN Reason: Pain, Mild (1-3) Acetaminophen (Tylenol 325mg Tab) 650 mg PO Q6 PRN PRN Reason: Fever >100.4 F Allopurinol (Zyloprim) 100 mg PO DAILY [facility] Last Admin: 11/29/18 10:09 Dose: 100 mg Aspirin (Ecotrin) 81 mg PO 0800 [facility] Last Admin: 11/29/18 08:15 Dose: 81 mg Atorvastatin Calcium (Lipitor) 20 mg PO DIN [facility] Last Admin: 11/28/18 17:21 Dose: 20 mg Cilostazol (Pletal) 50 mg PO BID [facility] Last Admin: 11/29/18 10:12 Dose: 50 mg Darbepoetin Arturo (Aranesp) 40 mcg SC QWK [facility] Last Admin: 11/25/18 23:20 Dose: 40 mcg Dextrose (Dextrose 50% Inj) 0 ml IV STAT PRN; Protocol PRN Reason: Hypoglycemia Protocol Docusate Sodium (Colace) 100 mg PO TID [facility] Last Admin: 11/29/18 10:10 Dose: 100 mg Ferrous Sulfate (Feosol) 324 mg PO BID [facility] Last Admin: 11/29/18 10:12 Dose: 324 mg Heparin Sodium (Porcine) (Heparin) 5,000 units SC Q8 [facility]; Protocol Last Admin: 11/29/18 05:56 Dose: 5,000 units Meropenem/Sodium Chloride (Merrem Iv 500 Mg/Ns 50 Ml) 500 mg in 50 mls @ 100 mls/hr IVPB Q12 [facility]; Protocol Last Admin: 11/29/18 10:45 Dose: 100 mls/hr Dextrose (Dextrose 5% In Water 1000 Ml) 1,000 mls @ 0 mls/hr IV .Q0M PRN; Protocol PRN Reason: Hypoglycemia Protocol Insulin Human Lispro (Humalog Med) 0 units SC AC [facility]; Protocol Last Admin: 11/29/18 08:15 Dose: 3 units Insulin Human NPH (Humulin N) 25 units SC ACBD [facility] Last Admin: 11/29/18 08:16 Dose: 25 unit Metoprolol Tartrate (Lopressor) 25 mg PO Q8H [facility] Last Admin: 11/29/18 05:55 Dose: 25 mg Morphine Sulfate (Morphine) 2 mg IVP Q4H PRN PRN Reason: Pain, severe (8-10) Last Admin: 11/29/18 11:45 Dose: 2 mg Ondansetron HCl (Zofran Inj) 4 mg IVP Q4H PRN PRN Reason: Nausea/Vomiting Oxycodone/Acetaminophen (Percocet 5/325 Mg Tab) 1 tab PO Q4H PRN PRN Reason: Pain, moderate (4-7) Stop: 12/01/18 09:59 Last Admin: 11/28/18 10:31 Dose: 1 tab Pantoprazole Sodium (Protonix Ec Tab) 40 mg PO 0600 [facility] Last Admin: 11/29/18 05:56 Dose: 40 mg Polyethylene Glycol (Miralax) 17 gm PO BID [facility] Last Admin: 11/29/18 10:09 Dose: 17 gm Sodium Hypochlorite (Dakins Solution 0.25%) 20 ml TOP DAILY [facility] Tamsulosin HCl (Flomax) 0.4 mg PO 1830 [facility] Last Admin: 11/28/18 17:22 Dose: 0.4 mg Vitamin B Complex/Vit C/Folic Acid (Nephro-Sumit) 1 tab PO 0800 [facility] Last Admin: 11/29/18 08:15 Dose: 1 tab - Labs Labs: 11/29/18 06:45 11/29/18 06:45 PT 14.7 SECONDS (9.4-12.5) H 11/25/18 13:05 INR 1.30 11/25/18 13:05 APTT 26.3 Seconds (26.9-38.3) L 11/25/18 13:05
[2018-11-29] MEDS: Dakin's Topical 0.25%-Half Strength (480 ml) TOP SCH ×2 (12:19→12:20)
--- NOTE | 2018-11-29 12:23 | PN ---
DATE: 11/29/2018 CARDIOLOGY FOLLOWUP SUBJECTIVE: The patient is in bed, in no acute distress. PHYSICAL EXAMINATION: VITAL SIGNS: Blood pressure 113/69 and heart rates in the 90s. NECK: Negative JVD. LUNGS: Decreased breath sounds. HEART: Reveals S1 and S2. EXTREMITIES: The bandage is still noted. LABORATORY DATA: Hemoglobin is 10.5. Chemistries; BUN and creatinine is 33 and 1.8 with a glucose of 206. IMPRESSION: 1. Cellulitis of lower extremities. 2. Status post amputation of lower digits 3. Dilated cardiomyopathy. 4. Renal insufficiency. 5. Coronary artery disease. 6. Anemia. PLAN: Given these findings, the patient is hemodynamically stable. The patient is continued on IV antibiotics. Milton Murrell MD
--- NOTE | 2018-11-29 23:40 | PN ---
DATE: 11/29/2018 SUBJECTIVE: The patient seen earlier today of 575, bed 2. The patient is in bed, in no acute distress, nontoxic. PHYSICAL EXAMINATION VITAL SIGNS: Stable with a temperature of 99, blood pressure of 112/70, respiratory rate of 18. HEENT: Unremarkable. NECK: Supple. LUNGS: Have decreased breath sounds. HEART: Normal S1, S2. ABDOMEN: Soft, nontender. No organomegaly. No rebound, no guarding, no masses. LABORATORY DATA: Noted. The white count is down to 11,000, hemoglobin of 10. Chemistries are noted. Creatinine is 1.8. Microbiology reveals Proteus and Pseudomonas sensitive organism. Blood cultures and urine cultures are negative. ASSESSMENT AND PLAN: A 73-year-old male status post left hallux, second metatarsal amputation postoperative day #6, chronic foot ulcer and the patient was admitted with Pseudomonas and group B Streptococcus on meropenem. The white count has normalized. 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 The patient is improving. A review of orders reveals the patient to be on meropenem. We will follow with you. Tai Landaverde MD
[2018-11-30] MEDS: Pantoprazole 40 mg EC Tab PO SCH (05:46)
[2018-11-30 07:09] LABS: BASO # 0.05 K/mm3 (0.0-2.0); BASO % 0.4 % (0.0-3.0); EOS # 0.3 (0.0-0.7); EOS % 2.4 % (1.5-5.0); HEMOGLOBIN 11.2 g/dL (14.0-18.0); LYMPH # 1.2 (1.2-3.4); MEAN CELL VOLUME 94.2 fl (80.0-105.0); MEAN CORPUSCULAR HEMOGLOBIN 30.9 pg (25.0-35.0); MEAN CORPUSCULAR HGB CONC 32.8 g/dl (31.0-37.0); MEAN PLATELET VOLUME 9.3 fl (7.0-11.0); MONO # 1.4 (0.1-0.6); MONO % 10.7 % (1.0-6.0); RBC 3.62 10^6/uL (3.5-6.1); RED CELL DISTRIBUTION WIDTH 16.3 % (11.5-14.5); WHITE BLOOD COUNT 13.3 10^3/uL (4.5-11.0)
[2018-11-30 07:29] LABS: ALB/GLOB RATIO 0.9 (1.1-1.8); ALBUMIN 3.6 g/dL (3.0-4.8); BILIRUBIN,DIRECT 0.3 mg/dL (0.0-0.4); CALCIUM 9.5 mg/dL (8.4-10.5)
[2018-11-30] MEDS: Insulin Lispro (humaLOG) MEDIUM Coverage SC SCH ×3 (08:13→17:18)
[2018-11-30] MEDS: Multivitamin Vitamin B Complex (Nephro-Vite) Tab PO SCH (08:13)
[2018-11-30] MEDS: Insulin Human NPH 1 UNITS/0.01 ML SC SCH ×2 (08:13→17:19)
[2018-11-30] MEDS ORDERED: Morphine 4 mg/ml ISec IVP STA (08:59)
[2018-11-30] MEDS: Morphine 2 mg/ml ISec IVP PRN ×2 (09:05→20:55)
[2018-11-30] MEDS: MEROPENEM 500 MG in NS 500 MG/50 ML BAG IVPB SCH ×2 (09:40→21:40)
[2018-11-30] MEDS: POLYETHYLENE GLYCOL 3350 17 GM/Dose PACKET PO SCH ×2 (09:44→17:53)
[2018-11-30] MEDS: Cilostazol 50 mg Tab UD PO SCH ×2 (09:46→17:54)
--- NOTE | 2018-11-30 10:12 | CP.PCM.PN ---
<Marco AMalinda - Last Filed: 11/30/18 15:45> Subjective - Date & Time of Evaluation Date of Evaluation: 11/30/18 Time of Evaluation: 06:45 - Subjective Subjective: General Surgery Dr. 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 No acute events overnight. Objective - Vital Signs/Intake and Output Vital Signs (last 24 hours): Temp Pulse Resp BP Pulse Ox 98.2 F 116 H 20 101/64 96 11/30/18 06:00 11/30/18 06:00 11/30/18 06:00 11/30/18 06:00 11/30/18 06:00 Intake and Output: 11/30/18 11/30/18 06:59 18:59 Intake Total 240 Output Total 500 Balance -260 - Medications Medications: Current Medications Acetaminophen (Tylenol 325mg Tab) 650 mg PO Q6H PRN PRN Reason: Pain, Mild (1-3) Acetaminophen (Tylenol 325mg Tab) 650 mg PO Q6 PRN PRN Reason: Fever >100.4 F Allopurinol (Zyloprim) 100 mg PO DAILY [facility] Last Admin: 11/30/18 09:46 Dose: 100 mg Aspirin (Ecotrin) 81 mg PO 0800 [facility] Last Admin: 11/30/18 08:14 Dose: 81 mg Atorvastatin Calcium (Lipitor) 20 mg PO DIN [facility] Last Admin: 11/29/18 17:19 Dose: 20 mg Cilostazol (Pletal) 50 mg PO BID [facility] Last Admin: 11/30/18 09:46 Dose: 50 mg Darbepoetin Arturo (Aranesp) 40 mcg SC QWK [facility] Last Admin: 11/25/18 23:20 Dose: 40 mcg Dextrose (Dextrose 50% Inj) 0 ml IV STAT PRN; Protocol PRN Reason: Hypoglycemia Protocol Docusate Sodium (Colace) 100 mg PO TID [facility] Last Admin: 11/30/18 09:52 Dose: 100 mg Ferrous Sulfate (Feosol) 324 mg PO BID [facility] Last Admin: 11/30/18 09:45 Dose: 324 mg Heparin Sodium (Porcine) (Heparin) 5,000 units SC Q8 [facility]; Protocol Last Admin: 11/30/18 05:41 Dose: 5,000 units Meropenem/Sodium Chloride (Merrem Iv 500 Mg/Ns 50 Ml) 500 mg in 50 mls @ 100 mls/hr IVPB Q12 [facility]; Protocol Last Admin: 11/30/18 09:40 Dose: 100 mls/hr Dextrose (Dextrose 5% In Water 1000 Ml) 1,000 mls @ 0 mls/hr IV .Q0M PRN; Protocol PRN Reason: Hypoglycemia Protocol Insulin Human Lispro (Humalog Med) 0 units SC AC [facility]; Protocol Last Admin: 11/30/18 08:13 Dose: 3 units Insulin Human NPH (Humulin N) 25 units SC ACBD [facility] Last Admin: 11/30/18 08:13 Dose: 25 unit Metoprolol Tartrate (Lopressor) 25 mg PO Q8H [facility] Last Admin: 11/30/18 05:46 Dose: 25 mg Midodrine (Proamatine) 2.5 mg PO TID [facility] Morphine Sulfate (Morphine) 2 mg IVP Q4H PRN PRN Reason: Pain, severe (8-10) Last Admin: 11/30/18 09:05 Dose: 2 mg Ondansetron HCl (Zofran Inj) 4 mg IVP Q4H PRN PRN Reason: Nausea/Vomiting Oxycodone/Acetaminophen (Percocet 5/325 Mg Tab) 1 tab PO Q4H PRN PRN Reason: Pain, moderate (4-7) Stop: 12/01/18 09:59 Last Admin: 11/28/18 10:31 Dose: 1 tab Pantoprazole Sodium (Protonix Ec Tab) 40 mg PO 0600 [facility] Last Admin: 11/30/18 05:46 Dose: 40 mg Polyethylene Glycol (Miralax) 17 gm PO BID [facility] Last Admin: 11/30/18 09:44 Dose: 17 gm Sodium Hypochlorite (Dakins Solution 0.25%) 20 ml TOP DAILY [facility] Last Admin: 11/29/18 12:20 Dose: 1 applic Tamsulosin HCl (Flomax) 0.4 mg PO 1830 [facility] Last Admin: 11/29/18 17:31 Dose: 0.4 mg Vitamin B Complex/Vit C/Folic Acid (Nephro-Sumit) 1 tab PO 0800 [facility] Last Admin: 11/30/18 08:13 Dose: 1 tab - Labs Labs: 11/30/18 06:40 11/30/18 06:40 PT 14.7 SECONDS (9.4-12.5) H 11/25/18 13:05 INR 1.30 11/25/18 13:05 APTT 26.3 Seconds (26.9-38.3) L 11/25/18 13:05 Assessment and Plan - Assessment and Plan (Free Text) Assessment: 73 y/o M POD#6 s/p left hallux amputation, 2nd metatarsal amputation 2/2 for chronic left foot non-healing wound Plan: - BID wet to dry dressing w/ Dakin's solution - cont Abx per ID - cont pain management - pt cleared for transfer to TCU from surgical standpoint - plan for definitive TMA tentatively vs next week Pt discussed w/ Dr. Ian Strickland PGY3 <Kain Sosa - Last Filed: 12/09/18 18:41> Objective - Vital Signs/Intake and Output Vital Signs (last 24 hours): Temp Pulse Resp BP Pulse Ox 98.4 F 94 H 20 97/62 L 100 12/09/18 13:44 12/09/18 13:44 12/09/18 13:44 12/09/18 13:44 12/09/18 13:44 Intake and Output: 12/09/18 12/09/18 06:59 18:59 Intake Total 480 Output Total 300 Balance 180 - Medications Medications: Current Medications Acetaminophen (Tylenol 325mg Tab) 650 mg PO Q6H PRN PRN Reason: Pain, Mild (1-3) Last Admin: 12/08/18 09:31 Dose: 650 mg Acetaminophen (Tylenol 325mg Tab) 650 mg PO Q6 PRN PRN Reason: Fever >100.4 F Dextrose (Dextrose 50% Inj) 0 ml IV STAT PRN; Protocol PRN Reason: Hypoglycemia Protocol Dextrose (Dextrose 50% Inj) 0 ml IV STAT PRN; Protocol PRN Reason: Hypoglycemia Protocol Docusate Sodium (Colace) 100 mg PO TID [facility] Last Admin: 12/09/18 18:14 Dose: 100 mg Famotidine (Pepcid) 20 mg PO 1000,2200 [facility] Stop: 12/11/18 10:01 Last Admin: 12/09/18 10:50 Dose: 20 mg Ferrous Gluconate (Fergon) 324 mg PO TID [facility] Last Admin: 12/09/18 18:14 Dose: 324 mg Heparin Sodium (Porcine) (Heparin) 5,000 units SC Q8 [facility]; Protocol Last Admin: 12/09/18 15:31 Dose: 5,000 units Dextrose (Dextrose 5% In Water 1000 Ml) 1,000 mls @ 0 mls/hr IV .Q0M PRN; Protocol PRN Reason: Hypoglycemia Protocol Meropenem/Sodium Chloride (Merrem Iv 500 Mg/Ns 50 Ml) 500 mg in 50 mls @ 100 mls/hr IVPB Q12 [facility]; Protocol Last Admin: 12/09/18 10:51 Dose: 100 mls/hr Dextrose (Dextrose 5% In Water 1000 Ml) 1,000 mls @ 0 mls/hr IV .Q0M PRN; Protocol PRN Reason: Hypoglycemia Protocol Insulin Human Lispro (Humalog Med) 0 units SC AC [facility]; Protocol Last Admin: 12/09/18 17:00 Dose: 1 units Insulin Human NPH (Humulin N) 17 units SC ACBD [facility] Last Admin: 12/09/18 17:03 Dose: 17 unit Midodrine (Proamatine) 5 mg PO TID [facility] Last Admin: 12/09/18 18:14 Dose: 5 mg Nystatin (Nystop Topical Powder) 0 gm TOP BID [facility] Last Admin: 12/09/18 18:17 Dose: 1 appl Ondansetron HCl (Zofran Inj) 4 mg IVP Q4H PRN PRN Reason: Nausea/Vomiting Pantoprazole Sodium (Protonix Ec Tab) 40 mg PO 0600 [facility] Last Admin: 12/09/18 05:37 Dose: 40 mg Polyethylene Glycol (Miralax) 17 gm PO BID [facility] Last Admin: 12/09/18 18:16 Dose: Not Given Sodium Hypochlorite (Dakins Solution 0.25%) 20 ml TOP DAILY [facility] Last Admin: 12/09/18 10:47 Dose: 1 applic Tamsulosin HCl (Flomax) 0.4 mg PO DAILY [facility] Last Admin: 12/09/18 10:49 Dose: 0.4 mg Vitamin B Complex/Vit C/Folic Acid (Nephro-Sumit) 1 tab PO 0800 [facility] Last Admin: 12/09/18 08:17 Dose: 1 tab - Labs Labs: 12/09/18 07:30 12/09/18 07:30 PT 14.7 SECONDS (9.4-12.5) H 11/25/18 13:05 INR 1.30 11/25/18 13:05 APTT 26.3 Seconds (26.9-38.3) L 11/25/18 13:05 Assessment and Plan - Assessment and Plan (Free Text) Plan: Patient was seen, evaluated and examined by me at the bedside. I agree with assessment and plan as stated in the resident's note.
[2018-11-30] MEDS: Sodium Chloride 0.9% 1,000 ML IV SCH (11:01)
[2018-11-30] MEDS: Dakin's Topical 0.25%-Half Strength (480 ml) TOP SCH (11:22)
--- NOTE | 2018-11-30 12:21 | CP.PCM.PN ---
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 stable renal fxn Hypertension control with meds as ordered. Maintain hemodynamics stable. Avoid hypotension. Patient not on ACEI/ARB due to EMIL and hyperkalemia tendency. consider to add once stable. Monitor Input/Output, daily weights and renal function with basic metabolic panel continue with iron and MVI. PRBC as needed. dose of aransep 40 mcg weekly held as Hb 11.2. K/L ratio remains high at 3.6. pending hematology eval vit d can be changed to once a month as last level 41 continue with flomax re-ordered IVF as NS as cr higher plan for TMA this week Dose meds/antibiotics for reduced GFR. Avoid fleets enema/magnesium based laxatives. Avoid nephrotoxins/NSAIDs/ iodinated contrast (unless needed e mergently) Glycemic control Further work up/management as per primary team Thanks for allowing me to participate in care of your patient. Will follow patient with you. Please call if any Qs. had d/w team and son Dr Anjum Padron Office: [phone] Chief Complaint; Foot ulcer Reason for consult: Acute Kidney Injury HPI: Pt is a 73 M with hx of diabetes Mellitus (30 years), hypertension (years) PVD, Gout CKD 3 with baseline cr 1.8-1.9 presented with complaints of foot ulcer, being managed for cellulitis. seen for EMIL and pt also with PVD Denies OTC/herbal meds or NSAIDs. No recent iodinated contrast exposure. Noted obvious episodes of low BP. pt still not aware about kidney disease in past ROS: noted overnight events Cardiovascular: No chest pain. Pulmonary: No shortness of breath Gastrointestinal: denies abdominal pain No nausea. No vomiting. Genitourinary: No pain while urinating. Denies blood in urine. All other negative except as mentioned in HPI. per son, pt refused to go for outpt follow ups Physical Examination: General Appearance: Comfortable, in no acute respiratory distress, co-operative . Vitals reviewed and noted as below Head; Atraumatic, normocephalic ENT: no ulcers no thrush. Tongue is midline. Oropharynx: no rash or ulcers. EYES: Pupils are equal, round and reactive to light accommodation. Eye muscles and extra-ocular movement intact. Sclera is anicteric. Neck; supple no lymphadenopathy, no thyromegaly or bruit Lungs: Normal respiratory rate/effort. Breath sounds bilateral equal and clear Heart: Incr rate. s1s2 normal. No rub or gallop. Extremities: no edema. No varicose veins. left foot in dressing Neurological: Patient is alert, awake and oriented to person, place and time. No focal deficit. Strength bilateral appropriate and equal Skin: Warm and dry. Normal turgor. No rash. Palpitation: Normal elasticity for age Abdomen: Abdomen is soft. Bowel sounds +. There is no abdominal tenderness, no guarding/rigidity no organomegaly Psych: lack insight and has normal affect/mood MSK: no joint tenderness or swelling. Digits and nails normal, no deformity : kidney or bladder not palpable. Labs/imaging reviewed. Past medical history, past surgical history, family history, social history, allergy reviewed and noted as below Family hx: no hx of CKD. Rest non-contributory Phos 3.5 TSAT 13% Vit D 41 PTH 49 LDL 103 kappa/lambda 3.4 uric acid 7.5 renal cyst left side Objective - Vital Signs/Intake and Output Vital Signs (last 24 hours): Temp Pulse Resp BP Pulse Ox 98.2 F 116 H 20 101/64 96 11/30/18 06:00 11/30/18 06:00 11/30/18 06:00 11/30/18 06:00 11/30/18 06:00 Intake and Output: 11/30/18 11/30/18 06:59 18:59 Intake Total 240 Output Total 500 Balance -260 - Medications Medications: Current Medications Acetaminophen (Tylenol 325mg Tab) 650 mg PO Q6H PRN PRN Reason: Pain, Mild (1-3) Acetaminophen (Tylenol 325mg Tab) 650 mg PO Q6 PRN PRN Reason: Fever >100.4 F Allopurinol (Zyloprim) 100 mg PO DAILY [facility] Last Admin: 11/30/18 09:46 Dose: 100 mg Aspirin (Ecotrin) 81 mg PO 0800 [facility] Last Admin: 11/30/18 08:14 Dose: 81 mg Atorvastatin Calcium (Lipitor) 20 mg PO DIN [facility] Last Admin: 11/29/18 17:19 Dose: 20 mg Cilostazol (Pletal) 50 mg PO BID [facility] Last Admin: 11/30/18 09:46 Dose: 50 mg Dextrose (Dextrose 50% Inj) 0 ml IV STAT PRN; Protocol PRN Reason: Hypoglycemia Protocol Docusate Sodium (Colace) 100 mg PO TID [facility] Last Admin: 11/30/18 09:52 Dose: 100 mg Ferrous Sulfate (Feosol) 324 mg PO BID [facility] Last Admin: 11/30/18 09:45 Dose: 324 mg Heparin Sodium (Porcine) (Heparin) 5,000 units SC Q8 [facility]; Protocol Last Admin: 11/30/18 05:41 Dose: 5,000 units Meropenem/Sodium Chloride (Merrem Iv 500 Mg/Ns 50 Ml) 500 mg in 50 mls @ 100 mls/hr IVPB Q12 [facility]; Protocol Last Admin: 11/30/18 09:40 Dose: 100 mls/hr Dextrose (Dextrose 5% In Water 1000 Ml) 1,000 mls @ 0 mls/hr IV .Q0M PRN; Prot ocol PRN Reason: Hypoglycemia Protocol Sodium Chloride (Sodium Chloride 0.9%) 1,000 mls @ 75 mls/hr IV .[id number] [facility] Stop: 12/02/18 10:16 Last Admin: 11/30/18 11:01 Dose: 75 mls/hr Insulin Human Lispro (Humalog Med) 0 units SC AC [facility]; Protocol Last Admin: 11/30/18 11:29 Dose: 5 units Insulin Human NPH (Humulin N) 25 units SC ACBD [facility] Last Admin: 11/30/18 08:13 Dose: 25 unit Metoprolol Tartrate (Lopressor) 25 mg PO Q8H [facility] Last Admin: 11/30/18 05:46 Dose: 25 mg Midodrine (Proamatine) 2.5 mg PO TID [facility] Last Admin: 11/30/18 10:45 Dose: 2.5 mg Morphine Sulfate (Morphine) 2 mg IVP Q4H PRN PRN Reason: Pain, severe (8-10) Last Admin: 11/30/18 09:05 Dose: 2 mg Ondansetron HCl (Zofran Inj) 4 mg IVP Q4H PRN PRN Reason: Nausea/Vomiting Oxycodone/Acetaminophen (Percocet 5/325 Mg Tab) 1 tab PO Q4H PRN PRN Reason: Pain, moderate (4-7) Stop: 12/01/18 09:59 Last Admin: 11/28/18 10:31 Dose: 1 tab Pantoprazole Sodium (Protonix Ec Tab) 40 mg PO 0600 [facility] Last Admin: 11/30/18 05:46 Dose: 40 mg Polyethylene Glycol (Miralax) 17 gm PO BID [facility] Last Admin: 11/30/18 09:44 Dose: 17 gm Sodium Hypochlorite (Dakins Solution 0.25%) 20 ml TOP DAILY [facility] Last Admin: 11/30/18 11:22 Dose: Not Given Tamsulosin HCl (Flomax) 0.4 mg PO 1830 [facility] Last Admin: 11/29/18 17:31 Dose: 0.4 mg Vitamin B Complex/Vit C/Folic Acid (Nephro-Sumit) 1 tab PO 0800 [facility] Last Admin: 11/30/18 08:13 Dose: 1 tab - Labs Labs: 11/30/18 06:40 11/30/18 06:40 PT 14.7 SECONDS (9.4-12.5) H 11/25/18 13:05 INR 1.30 11/25/18 13:05 APTT 26.3 Seconds (26.9-38.3) L 11/25/18 13:05
--- NOTE | 2018-11-30 14:12 | CP.PCM.PCO ---
Physician Communication Note - Physician Communication Note Physician Communication Note: OR pending Thurs.
--- NOTE | 2018-11-30 14:15 | PN ---
DATE: 11/30/2018 SUBJECTIVE: The patient is seen in room 575 bed 2. Overnight nurse's notes were reviewed. The patient was seen and evaluated by Surgery and Infectious Disease in the last 24 hours. Their recommendations were noted. The patient continued to have a dressing of the left foot. The patient was found to be episodically confused. PHYSICAL EXAMINATION: VITAL SIGNS: T-max 99.9, heart rate 116, blood pressure 101/64, respirations 20, O2 sat 96%. HEENT: Head examination normocephalic, atraumatic. HEENT examination shows pinkish pale conjunctivae. Dry oral mucosa. NECK: No neck rigidity. CHEST: Kyphosis. LUNGS: Examination shows no audible crackle, rales, wheezing. CARDIOVASCULAR: S1, S2, irregularly irregular rhythm. Positive systolic murmur at left sternal border, right second intercostal space, left second intercostal space. ABDOMEN: Soft, positive bowel sounds. GENITALIA: Male. Rectal: Examination is deferred. EXTREMITIES: Shows no pitting edema, no calf tenderness or swelling. Positive left foot dressing noted. MUSCULOSKELETAL: As per the body mass index. NEUROLOGIC: The patient is alert, awake, responsive, oriented to person and place, disoriented to year, date, month, date of . The patient is able to move upper and lower extremity without assistance. DIAGNOSTICS: , WBC 13.3, hemoglobin and hematocrit 11.2 and 34.1, platelet 590,000, granulocyte 77. Sodium 138, potassium 4.6, chloride 99, CO2 of 30, BUN 37, creatinine 2.1, glucose 230, calcium 9.5, phosphorus 3.8, magnesium 2.2. LFTs are normal. The patient's left toe amputation pathology report shows gangrenous necrosis with gouty tophus and acute osteomyelitis of the left toe amputation. IMPRESSION: 1. 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 2. Recurrent fever. 3. Tachycardia. 4. Hypertension. 5. Persistent refractory leukocytosis. 6. Normocytic anemia. 7. Status post packed red blood cell transfusion x3. 8. Reactive thrombocytosis. 9. Granulocytosis. 10. Acute kidney injury with chronic kidney disease stage 4. 11. Status post left foot left great toe amputation and metatarsal amputation. 12. Status post left foot second and third toe removal. 13. Left foot wound debridement. 14. Severe peripheral vascular disease. 15. Uncontrolled diabetes mellitus with hyperglycemia and elevated hemoglobin A1c. 16. Transitional confusional and disorientation state. 17. Possible delirium versus toxic metabolic encephalopathy. 18. Hypotension. 1. Pseudomonas aeruginosa, Proteus mirabilis and beta hemolytic group B Streptococcus, left foot diabetic ulceration and gangrene. 2. Status post status post left foot great toe amputation and metatarsal amputation. 3. Status post removal of the second and third toe nail. 4. Status post left foot wound debridement. 5. Severe peripheral vascular disease of the lower extremity with ankle-brachial indexes of less than 1. 6. History of chronic osteomyelitis of the left foot. 7. Normocytic anemia. 8. Refractory leukocytosis, slow resolving. 9. Reactive thrombocytosis. 10. Leukocytosis with granulocytosis. 11. Status post packed red blood cell transfusion x3. 12. Hypertensive and diabetic chronic kidney disease stage III. 13. Uncontrolled diabetes mellitus with hyperglycemia and elevated hemoglobin A1c. 14. Deconditioning. 15. Gait dysfunction. 16. Questionable delirium versus encephalopathy versus transient confusional and disorientation state. 17. History of hyperuricemia and gout. 18. History of poor compliance, noncompliance. 19. Tachycardia. 20. High-grade fever. 21. Transient hypotension. 22. Dilated cardiomyopathy with left ventricular ejection fraction of 35%. 23. Severe mitral and tricuspid regurgitation. 24. Severe peripheral vascular disease of the lower extremity. 1. Sepsis, secondary to left foot diabetic foot ulceration secondary to Proteus mirabilis, Pseudomonas aeruginosa, beta hemolytic group B strep. 2. High-grade fever. 3. Tachycardia. 4. Episodic hypotension. 5. Leukocytosis with granulocytosis. 6. Acute kidney injury with underlying chronic kidney disease stage 4. 7. Uncontrolled non-insulin requiring diabetes mellitus with hyperglycemia and elevated hemoglobin A1c and elevated fructosamine of 329. 8. Episodic disorientation and confusion, possible questionable delirium versus toxic metabolic encephalopathy. 9. Proteinuria, microscopic hematuria, bacteriuria. 10. Monoclonal gammopathy, of unknown significance. 11. Metabolic acidosis. 12. Hypertensive, diabetic, chronic kidney disease stage 3. 13. Severe mitral, tricuspid regurgitation with systolic congestive heart failure and cardiomyopathy with ejection fraction of 35%. 14. Left foot grade 2 amputation, second metatarsal amputation, and third and fourth toe toenail removal and wound debridement. 15. Cardiomyopathy. 16. Severe peripheral vascular disease of the lower extremity. 17. Persistent refractory leukocytosis. 18. Chronic microvascular ischemic disease of the brain and cerebral cortical atrophy of the brain. 19. Gait dysfunction. 20. Deconditioning. 21. Transient confusion state secondary to transient cerebral hypoperfusion and hyperglycemic fluctuations. 1. Status post left foot great toe amputation and second metatarsal amputation and third and fourth digit toenail removal and left foot wound debridement, postop day #1. 2. Chronic nonhealing left foot diabetic foot ulceration and possible gangrene. 3. Fever. 4. Tachycardia. 5. Hypotension. 6. Persistent refractory leukocytosis with granulocytosis. 7. Normocytic anemia, status post packed red blood cell transfusion x3. 8. Uncontrolled diabetes mellitus with hyperglycemia and elevated hemoglobin A1c of 8.6. 9. Hyper fructosemia. 10. Lactic acidosis. 11. Hyperuricemia. 12. Possible iron-deficiency. 13. Elevated C-reactive protein of greater than 15. 14. Hypertriglyceridemia. 15. Proteinuria. 16. Microscopic hematuria. 17. Bacteriuria. 18. Elevated total kappa lambda ratio. 19. Pseudomonas aeruginosa and beta hemolytic strep group B left foot diabetic foot ulceration. 20. Status post packed red blood cell transfusion x3. 21. Left foot cellulitis. 22. Chronic microvascular ischemic disease of the brain and cerebral cortical atrophy of the brain. 23. Sepsis with Pseudomonas aeruginosa and group B Streptococcus beta hemolytic Streptococcus left foot diabetic foot ulcerations and cellulitis. 24. Kidney injury with underlying chronic kidney disease. 25. Hypertensive diabetic chronic kidney disease. 26. Stage III chronic kidney disease secondary to hypertension and vasculopathy. 27. Anemia. 28. Monoclonal gammopathy of unknown significance. 29. Transient and episodic confusion and disorientation, probably secondary to transient cerebral hypoperfusion and uncontrolled diabetes mellitus. 30. Sepsis. 1. Group B Streptococcus and Pseudomonas aeruginosa, left foot diabetic foot ulceration and gangrene and cellulitis. 2. History of chronic osteomyelitis of the left foot. 3. High-grade fever. 4. Questionable sepsis versus systemic inflammatory response syndrome. 5. Tachycardia. 6 Hypotension. 7. Questionable and possible encephalopathy versus toxic metabolic encephalopathy with episodic confusion and disorientation. 8. Type 2 diabetes mellitus. 9. Anemia of chronic disease. 10. Status post packed red blood cell transfusion x2. 11. Gait dysfunction. 12. Deconditioning. 13. Status post left foot big toe amputation,2nd metatarsal amputation, wound debridement and 3rd and 4th toe nail removal. 14. Persistent refractory leukocytosis with granulocytosis 15. Normocytic anemia. 16. Uncontrolled type 2 diabetes mellitus with hyperglycemia. 17. Microvascular ischemic disease of the brain. 18. Cerebral cortical atrophy of the brain. 19. Gait dysfunction with nonweightbearing status of the left foot. 20. Severe peripheral vascular disease of the lower extremity with severe bilateral tibial and distal lower extremities severe occlusive disease with ankle-brachial index is of less than 1. 21. History of hypertension. 22. History of gout and hyperuricemia. 23. History of gouty arthritis. 24. Dilated cardiomyopathy with ejection fraction of 35% with severe mitral and tricuspid regurgitation. 25. Acute kidney injury with underlying chronic kidney disease stage III. 26. Proteinuria and microscopic hematuria. 1. High-grade fever and new fever. 2. Tachycardia. 3. Hypotension. 4. Questionable sepsis versus systemic inflammatory response syndrome with high-grade fever, tachycardia, hypotension. 5. Persistent refractory leukocytosis with granulocytosis. 6. Normocytic anemia. 7. Status post packed red blood cell transfusion x2. 8. Uncontrolled type 2 noninsulin-requiring diabetes mellitus with hyperglycemia. 9. Left foot Pseudomonas aeruginosa, group B Streptococcus with beta-hemolytic left foot, and left foot diabetic ulceration and possible diabetic left foot gangrene. 10. Proteinuria. 11. Microscopic hematuria. 12. Bacteriuria. 13. Left foot group B streptococcal beta-hemolytic and Pseudomonas aeruginosa left foot diabetic foot ulceration. 14. Episodic disorientation and confusion, etiology undetermined. 15. Questionable toxic metabolic encephalopathy. 16. Hyperglycemia secondary to uncontrolled diabetes mellitus. 17. Status post packed red blood cell transfusion x2. 18. Persistent refractory leukocytosis. 19. Left foot diabetic ulceration and diabetic cellulitis. 20. Dilated cardiomyopathy. 21. History of poor compliance and noncompliance. 22. History of hyperuricemia and gout. 23. 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 24. Gait dysfunction. 25. Deconditioning. 1. Left foot diabetic ulceration and nonhealing diabetic ulceration with possible diabetic gangrene of the left foot and great toe and the left foot toes with group B Streptococcus and Pseudomonas aeruginosa, cellulitis and diabetic foot gangrene of the left foot. 2. Uncontrolled diabetes mellitus with elevated hemoglobin A1c. 3. Fever. 4. Questionable sepsis. 5. Tachycardia. 6. Possible sepsis versus systemic inflammatory response syndrome. 7. Fever. 8. Transient hypotension. 9. Dilated cardiomyopathy. 10. Persistent refractory leukocytosis. 11. Normocytic anemia status post packed red blood cell transfusion. 12. Granulocytosis. 13. Acute kidney injury with underlying chronic kidney disease, stage IV. 14. Uncontrolled diabetes mellitus with hyperglycemia and an elevated hemoglobin A1c and hyperfructosemia. 15. History of poor compliance and noncompliance. 16. History of hyperuricemia and gout. 17. Severe peripheral vascular disease. 18. History of severe peripheral vascular disease of the lower extremity. 19. Severe mitral and tricuspid regurgitation. 20. Cardiomyopathy with ejection fraction of around 35%. 21. History of poor compliance. 22. History of chronic osteomyelitis of the left foot and partial amputation of the left foot second toe. 1. Fever. 2. Sinus tachycardia. 3. Pseudomonas nose group. Group B streptococcus group B beta hemolytic left foot diabetic foot ulcerations and cellulitis and gangrene. 4. Severe peripheral vascular disease. 5. Persistent refractory leukocytosis with granulocytosis. 6. Anemia with decreasing hemoglobin/hematocrit. 7. Elevated erythrocyte sedimentation rate of 122. 8. Chronic kidney disease, stage 3. 9. Hyperglycemia secondary to uncontrolled diabetes mellitus with hemoglobin A1c of 8.6 and hyper fructose anemia. 10. Transaminitis. 11. Iron-deficiency anemia. 12. Hypertriglyceridemia. 13. Elevated C-reactive protein of greater than 15. 14. Lactic acidosis. 15. Status post packed red blood cell transfusions x2. 16. Left foot erosive changes. 17. Severe peripheral vascular disease of bilateral popliteal trifurcation and tibial disease with normal resting ankle-brachial indices. 18. Chronic osteomyelitis of the left foot with bony destruction and sclerosis around the first metatarsophalangeal joint and partial amputation of the second proximal phalanx. 19. Severe degenerative joint disease of the left midfoot. 20. Left axis deviation. 21. Acute kidney injury with underlying chronic kidney disease. 22. Metabolic acidosis. 23. Hypertensive diabetic chronic kidney disease stage 3 without proteinuria. 24. Monoclonal gammopathy of unknown significance. 25. Severe mitral, tricuspid regurgitation with cardiomyopathy, left ventricular ejection fraction of 35% to 40%. 26. Left foot diabetic foot ulceration and gangrene. 27. Congestive heart failure with reduced ejection fraction. 28. Nonhealing left foot diabetic ulceration. 29. Sepsis with left foot cellulitis and diabetic foot ulceration with Pseudomonas secondary to Pseudomonas aeruginosa and Streptococcus group B beta hemolytic Streptococcus. 30. Questionable and possible delirium versus encephalopathy. 31. Gait dysfunction. 32. Deconditioning. 33. Constipation. 34. Hypovitaminosis D. 35. Prostatic hypertrophy. 36. Hyperlipidemia. 37. Hyperuricemia. 38. Hyperglycemia. 39. Uncontrolled diabetes mellitus with hyperglycemia. 40. Gait dysfunction. 41. History of poor compliance and noncompliance. 1. Left foot Pseudomonas aeruginosa and group B beta hemolytic strep, left foot diabetic foot ulceration and cellulitis. 2. Sepsis secondary to Pseudomonas aeruginosa and group B beta hemolytic strep, left diabetic foot ulceration and cellulitis. 3. Hypertension. 4. Tachycardia. 5. Anemia. 6. Status post packed red blood cell transfusion one unit. 7. Leukocytosis with granulocytosis. 8. Elevated erythrocyte sedimentation rate of 122. 9. Iron-deficiency. 10. Acute kidney injury with underlying chronic kidney disease, stage IV. 11. Uncontrolled diabetes mellitus with hyperglycemia and elevated hemoglobin A1c of 8.6 and elevated fructose, a mean of 329. 12. Transient lactic acidosis. 13. Transaminitis. 14. Hypertriglyceridemia. 15. Elevated C-reactive protein of greater than 15. 16. Gait dysfunction. 17. Deconditioning. 18. Metabolic acidosis. 19. 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 20. Severe mitral, tricuspid regurgitation and systolic congestive heart failure. 21. Left foot cellulitis and left foot diabetic ulceration. 22. Left diabetic foot ulceration and possible gangrene or pre-gangrenous condition of the left foot toes. 23. Left foot second digit amputation. 24. Peripheral vascular disease. 25. Left foot second toe amputation with cyanosis and mummification of the toes and forefoot of the left foot. 26. Severe tibial disease of the lower extremity. 27. Peripheral vascular disease. 28. Anemia of chronic disease. 29. Bilateral popliteal trifurcation and tibial disease. 30. Left anterior hemiblock. 1. Left foot Pseudomonas aeruginosa and group B Streptococcus beta hemolytic left foot cellulitis and diabetic foot ulcer. 2. Severe peripheral vascular disease of the lower extremity. 3. Normocytic anemia with decreasing hemoglobin. 4. Leukocytosis with granulocytosis. 5. Uncontrolled diabetes mellitus with hyperglycemia. 6. Acute kidney injury with underlying chronic kidney disease stage III/IV. 7. Transaminitis. 8. Probably anemia of chronic kidney disease. 9. Acute kidney injury with underlying chronic kidney disease. 10. Metabolic acidosis. 11. Hypertensive diabetic chronic kidney disease. 12. [id number] mitral regurgitation and [id number] tricuspid regurgitation. 13. Dilated cardiomyopathy with ejection fraction of 35%. 14. Sepsis. 15. Hypertension. 16. Gait dysfunction. 17. Deconditioning. 18. Bilateral lower extremity peripheral vascular disease. 19. History of poor compliance and noncompliance. 20. History of hyperuricemia and gout. 1. Left foot cellulitis versus gangrene versus pregangrenous state. 2. Sepsis. 3. Tachycardia. 4. Transient episodic hypotension. 5. Leukocytosis with granulocytosis 6. Elevated erythrocyte sedimentation rate of 122. 7. Normocytic anemia. 8. Chronic kidney disease stage 4 with acute kidney injury. 9. Uncontrolled noninsulin-requiring diabetes mellitus with hyperglycemia and hemoglobin A1c of 8.6. 10. Possible iron-deficiency. 11. Hypertriglyceridemia. 12. Elevated C-reactive protein of greater than 15. 13. Transient lactic acidosis. 14. Transaminitis. 15. Deconditioning. 16. Gait dysfunction. 17. Anemia with decreasing hemoglobin and hematocrit. 18. Metabolic acidosis. 19. Diabetic hypertensive chronic kidney disease. 20. Chronic kidney disease stage 3 without proteinuria. 21. Severe mitral and tricuspid regurgitation. 22. Systolic congestive heart failure. 23. Dilated ischemic cardiomyopathy, etiology undetermined. 1. Left foot cellulitis with diabetic foot disease and possible abscess versus possible osteomyelitis. 2. History of left foot second toe amputation. 3. Hypertension. 4. Tachycardia. 5. Fever. 6. Poor compliance and noncompliance. 7. Leukocytosis with granulocytosis. 8. Normocytic anemia. 9. Elevated erythrocyte sedimentation rate of 122. 10. Chronic kidney disease, stage IV with acute kidney injury. 11. Transient lactic acidosis. 12. History of hyperuricemia. 13. Hypertriglyceridemia. 14. Aortic calcification. 15. Bilateral lower extremity popliteal trifurcation and tibial peripheral vascular disease. 16. Left foot first metatarsophalangeal joint bony destruction and sclerosis, chronic osteomyelitis. 17. 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 18. 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 19. Sinus tachycardia with left anterior hemiblock. 20. Deconditioning. 21. History of poor compliance. 22. Chronic dilated ischemic cardiomyopathy with ejection fraction of . 23. History of hypertension. 24. History of heart failure with reduced ejection fraction of 35%. 25. Pulmonary hypertension with right ventricular systolic pressure of 40 mmHg. 26. Left ventricular global hypokinesis and moderately impaired left ventricular systolic function. 27. Mild aortic regurgitation. 28. Moderate to severe mitral regurgitation. 29. Moderate tricuspid regurgitation. 30. History of constipation. 31. Hypovitaminosis D. 32. History of iron-deficiency anemia. 33. Prostatic hypertrophy. 34. Insulin-requiring diabetes mellitus. 35. Hyperlipidemia. 36. History of peripheral vascular disease. 37. Hyperuricemia. 1. Left foot diabetic foot ulceration versus left foot abscess versus left foot toe osteomyelitis. 2. Tachycardia. 3. Leukocytosis with granulocytosis. 4. Questionable systemic inflammatory response syndrome. 5. Uncontrolled diabetes mellitus with hyperglycemia. 6. Chronic kidney disease stage IV. 7. Mild transaminitis. 8. History of hypertension. 9. Hyperlipidemia. 10. History of prostatic hypertrophy. 11. History of iron-deficiency anemia. 12. History of hypovitaminosis D. 13. History of dilated cardiomyopathy. 14. History of pulmonary hypertension. 15. History of moderate tricuspid regurgitation and mitral regurgitation. 16. Hyperuricemia. PLAN: At this time, the patient has been started on low-dose midodrine 2.5 mg three times a day. The patient will be considered for IV fluid bolus if the patient's blood pressure stays low. The patient is currently being followed by Surgery, Infectious Disease, Podiatry, Interventional Radiology, Cardiology, Nephrology and other subspecialty. The patient is to be continued on IV and Infectious Disease. The patient is also to be followed by Infectious Disease. The patient will be continued on all the therapeutic intervention as per the MAR of today. The patient is to be continued on IV antibiotics as per Infectious Disease. The patient is awaiting further Vascular Surgery intervention recommendation for possible transmetatarsal amputation of the left foot. The patient's family including the patient and the patient's daughter and the son are aware of the further recommendation by all the subspecialties involved with the care of the patient. At present, the patient will be continued on the above therapeutic intervention. The patient will be followed closely with all the subspecialty consultation. The patient has been ordered out of bed to chair, physical therapy, occupational therapy, ambulation therapy, gait training. The patient has been ordered nonweightbearing of the left lower extremity. At present, the patient's further management will be dependent upon the patient's clinical condition, hemodynamic status and as per the patient response to therapeutic intervention, as per the patient's diagnostic test results, and as per recommendation by all the physicians involved in the care of the patient. Dictated and electronically signed, not read. Niranjan Ling MD [facility]
--- NOTE | 2018-11-30 22:11 | PN ---
DATE: 11/30/2018 SUBJECTIVE: The patient is seen in bed, in no acute distress, and nontoxic. No fevers. OBJECTIVE: VITAL SIGNS: Temperature is 98, blood pressure is 112/70, and respiratory rate of 16. HEENT: Unremarkable. NECK: Supple. LUNGS: Have decreased breath sounds. HEART: Normal S1 and S2. ABDOMEN: Normal. LABORATORY EXAMINATION: Reveals a white count of 13,000. Chemistries are noted with a creatinine of 2.1. Urinalysis is noted. Stool for occult is negative. ASSESSMENT AND PLAN: This is a 73-year-old male was seen earlier today in room 575, bed 2 and status post left helix second metatarsal amputation postoperative day #7, chronic foot ulcer, and the patient had Pseudomonas and group B Streptococcus, on meropenem,. Gouty tophus. The patient is scheduled for the OR on , currently on meropenem. Tai Landaverde MD
[2018-12-01] MEDS: Sodium Chloride 0.9% 1,000 ML IV SCH ×2 (05:42→14:43)
[2018-12-01] MEDS: Pantoprazole 40 mg EC Tab PO SCH (05:44)
[2018-12-01] MEDS: Oxycodone/Acetaminophen 5/325 mg Tab PO PRN (05:55)
[2018-12-01 07:37] LABS: BASO # 0.04 K/mm3 (0.0-2.0); BASO % 0.3 % (0.0-3.0); EOS # 0.2 (0.0-0.7); EOS % 1.7 % (1.5-5.0); HEMOGLOBIN 10.8 g/dL (14.0-18.0); LYMPH # 1.2 (1.2-3.4); LYMPH % 8.5 % (22.0-35.0); MEAN CELL VOLUME 95.4 fl (80.0-105.0); MEAN CORPUSCULAR HEMOGLOBIN 31.1 pg (25.0-35.0); MEAN CORPUSCULAR HGB CONC 32.6 g/dl (31.0-37.0); MEAN PLATELET VOLUME 9.3 fl (7.0-11.0); MONO # 1.6 (0.1-0.6); MONO % 12.1 % (1.0-6.0); RBC 3.47 10^6/uL (3.5-6.1); RED CELL DISTRIBUTION WIDTH 16.7 % (11.5-14.5); WHITE BLOOD COUNT 13.5 10^3/uL (4.5-11.0)
[2018-12-01 07:54] LABS: ALB/GLOB RATIO 0.9 (1.1-1.8); ALBUMIN 3.3 g/dL (3.0-4.8); BILIRUBIN,DIRECT 0.2 mg/dL (0.0-0.4); CALCIUM 9.1 mg/dL (8.4-10.5)
[2018-12-01] MEDS: Insulin Human NPH 1 UNITS/0.01 ML SC SCH ×2 (08:31→17:39)
[2018-12-01] MEDS: Insulin Lispro (humaLOG) MEDIUM Coverage SC SCH ×3 (08:32→17:38)
[2018-12-01] MEDS: Multivitamin Vitamin B Complex (Nephro-Vite) Tab PO SCH (08:32)
[2018-12-01] MEDS: MEROPENEM 500 MG in NS 500 MG/50 ML BAG IVPB SCH ×2 (09:39→22:37)
[2018-12-01] MEDS: POLYETHYLENE GLYCOL 3350 17 GM/Dose PACKET PO SCH ×2 (09:39→17:41)
[2018-12-01] MEDS: Cilostazol 50 mg Tab UD PO SCH ×2 (09:40→17:41)
--- NOTE | 2018-12-01 11:46 | CP.PCM.PN ---
<Samuel Hale - Last Filed: 12/01/18 11:42> Subjective - Date & Time of Evaluation Date of Evaluation: 12/01/18 Time of Evaluation: 09:30 - Subjective Subjective: General Surgery Progress Note Pt seen and examined. No acute events overnight. Dressing changed. Objective - Vital Signs/Intake and Output Vital Signs (last 24 hours): Temp Pulse Resp BP Pulse Ox 98.3 F 116 H 17 107/65 98 12/01/18 06:00 12/01/18 06:00 12/01/18 06:00 12/01/18 06:00 12/01/18 06:00 Intake and Output: 12/01/18 12/01/18 06:59 18:59 Intake Total 240 Balance 240 - Medications Medications: Current Medications Acetaminophen (Tylenol 325mg Tab) 650 mg PO Q6H PRN PRN Reason: Pain, Mild (1-3) Acetaminophen (Tylenol 325mg Tab) 650 mg PO Q6 PRN PRN Reason: Fever >100.4 F Allopurinol (Zyloprim) 100 mg PO DAILY [facility] Last Admin: 12/01/18 09:40 Dose: 100 mg Aspirin (Ecotrin) 81 mg PO 0800 [facility] Last Admin: 12/01/18 08:32 Dose: 81 mg Atorvastatin Calcium (Lipitor) 20 mg PO DIN [facility] Last Admin: 11/30/18 17:54 Dose: 20 mg Cilostazol (Pletal) 50 mg PO BID [facility] Last Admin: 12/01/18 09:40 Dose: 50 mg Dextrose (Dextrose 50% Inj) 0 ml IV STAT PRN; Protocol PRN Reason: Hypoglycemia Protocol Docusate Sodium (Colace) 100 mg PO TID [facility] Last Admin: 12/01/18 09:37 Dose: 100 mg Ferrous Sulfate (Feosol) 324 mg PO BID [facility] Last Admin: 12/01/18 09:37 Dose: 324 mg Heparin Sodium (Porcine) (Heparin) 5,000 units SC Q8 [facility]; Protocol Last Admin: 12/01/18 05:44 Dose: 5,000 units Dextrose (Dextrose 5% In Water 1000 Ml) 1,000 mls @ 0 mls/hr IV .Q0M PRN; Protocol PRN Reason: Hypoglycemia Protocol Sodium Chloride (Sodium Chloride 0.9%) 1,000 mls @ 75 mls/hr IV .[id number] [facility] Stop: 12/02/18 10:16 Last Admin: 12/01/18 05:42 Dose: 75 mls/hr Meropenem/Sodium Chloride (Merrem Iv 500 Mg/Ns 50 Ml) 500 mg in 50 mls @ 100 mls/hr IVPB Q12 [facility]; Protocol Last Admin: 12/01/18 09:39 Dose: 100 mls/hr Insulin Human Lispro (Humalog Med) 0 units SC AC [facility]; Protocol Last Admin: 12/01/18 08:32 Dose: Not Given Insulin Human NPH (Humulin N) 25 units SC ACBD [facility] Last Admin: 12/01/18 08:31 Dose: 25 unit Metoprolol Tartrate (Lopressor) 25 mg PO Q8H [facility] Last Admin: 12/01/18 05:44 Dose: 25 mg Midodrine (Proamatine) 2.5 mg PO TID [facility] Last Admin: 12/01/18 09:40 Dose: 2.5 mg Morphine Sulfate (Morphine) 2 mg IVP Q4H PRN PRN Reason: Pain, severe (8-10) Last Admin: 11/30/18 20:55 Dose: 2 mg Ondansetron HCl (Zofran Inj) 4 mg IVP Q4H PRN PRN Reason: Nausea/Vomiting Pantoprazole Sodium (Protonix Ec Tab) 40 mg PO 0600 [facility] Last Admin: 12/01/18 05:44 Dose: 40 mg Polyethylene Glycol (Miralax) 17 gm PO BID [facility] Last Admin: 12/01/18 09:39 Dose: 17 gm Sodium Hypochlorite (Dakins Solution 0.25%) 20 ml TOP DAILY [facility] Last Admin: 11/30/18 11:22 Dose: Not Given Tamsulosin HCl (Flomax) 0.4 mg PO 1830 [facility] Last Admin: 11/30/18 17:54 Dose: 0.4 mg Vitamin B Complex/Vit C/Folic Acid (Nephro-Sumit) 1 tab PO 0800 [facility] Last Admin: 12/01/18 08:32 Dose: 1 tab - Labs Labs: 12/01/18 07:00 12/01/18 07:00 PT 14.7 SECONDS (9.4-12.5) H 11/25/18 13:05 INR 1.30 11/25/18 13:05 APTT 26.3 Seconds (26.9-38.3) L 11/25/18 13:05 - Constitutional Appears: Non-toxic, No Acute Distress - Head Exam Head Exam: ATRAUMATIC, NORMOCEPHALIC - Eye Exam Eye Exam: EOMI. absent: Scleral icterus - Respiratory Exam Respiratory Exam: NORMAL BREATHING PATTERN. absent: Respiratory Distress - Extremities Exam Extremities Exam: absent: Calf Tenderness, Pedal Edema Additional comments: Left foot wound with some necrotic skin edges, some granulation and fibrous tissue in wound bed. Foot cooler to touch than prior days. - Neurological Exam Neurological Exam: Awake - Skin Skin Exam: Dry, Warm Assessment and Plan - Assessment and Plan (Free Text) Assessment: 73M POD#7 s/p left hallux amputation, 2nd metatarsal amputation 2/2 for chronic left foot non-healing wound Plan: -PT to work on range of motion of L leg - BID wet to dry dressing w/ Dakin's solution - cont Abx per ID - cont pain management PRN - pt cleared for transfer to TCU from surgical standpoint - planing for definitive TMA tentatively next week D/W Dr. Ian Hale PGY4 <Kain Sosa - Last Filed: 12/09/18 18:41> Objective - Vital Signs/Intake and Output Vital Signs (last 24 hours): Temp Pulse Resp BP Pulse Ox 98.4 F 94 H 20 97/62 L 100 12/09/18 13:44 12/09/18 13:44 12/09/18 13:44 12/09/18 13:44 12/09/18 13:44 Intake and Output: 12/09/18 12/09/18 06:59 18:59 Intake Total 480 Output Total 300 Balance 180 - Medications Medications: Current Medications Acetaminophen (Tylenol 325mg Tab) 650 mg PO Q6H PRN PRN Reason: Pain, Mild (1-3) Last Admin: 12/08/18 09:31 Dose: 650 mg Acetaminophen (Tylenol 325mg Tab) 650 mg PO Q6 PRN PRN Reason: Fever >100.4 F Dextrose (Dextrose 50% Inj) 0 ml IV STAT PRN; Protocol PRN Reason: Hypoglycemia Protocol Dextrose (Dextrose 50% Inj) 0 ml IV STAT PRN; Protocol PRN Reason: Hypoglycemia Protocol Docusate Sodium (Colace) 100 mg PO TID [facility] Last Admin: 12/09/18 18:14 Dose: 100 mg Famotidine (Pepcid) 20 mg PO 1000,2200 [facility] Stop: 12/11/18 10:01 Last Admin: 12/09/18 10:50 Dose: 20 mg Ferrous Gluconate (Fergon) 324 mg PO TID [facility] Last Admin: 12/09/18 18:14 Dose: 324 mg Heparin Sodium (Porcine) (Heparin) 5,000 units SC Q8 [facility]; Protocol Last Admin: 12/09/18 15:31 Dose: 5,000 units Dextrose (Dextrose 5% In Water 1000 Ml) 1,000 mls @ 0 mls/hr IV .Q0M PRN; Protocol PRN Reason: Hypoglycemia Protocol Meropenem/Sodium Chloride (Merrem Iv 500 Mg/Ns 50 Ml) 500 mg in 50 mls @ 100 mls/hr IVPB Q12 [facility]; Protocol Last Admin: 12/09/18 10:51 Dose: 100 mls/hr Dextrose (Dextrose 5% In Water 1000 Ml) 1,000 mls @ 0 mls/hr IV .Q0M PRN; Protocol PRN Reason: Hypoglycemia Protocol Insulin Human Lispro (Humalog Med) 0 units SC AC [facility]; Protocol Last Admin: 12/09/18 17:00 Dose: 1 units Insulin Human NPH (Humulin N) 17 units SC [facility] Last Admin: 12/09/18 17:03 Dose: 17 unit Midodrine (Proamatine) 5 mg PO TID [facility] Last Admin: 12/09/18 18:14 Dose: 5 mg Nystatin (Nystop Topical Powder) 0 gm TOP BID [facility] Last Admin: 12/09/18 18:17 Dose: 1 appl Ondansetron HCl (Zofran Inj) 4 mg IVP Q4H PRN PRN Reason: Nausea/Vomiting Pantoprazole Sodium (Protonix Ec Tab) 40 mg PO 0600 [facility] Last Admin: 12/09/18 05:37 Dose: 40 mg Polyethylene Glycol (Miralax) 17 gm PO BID [facility] Last Admin: 12/09/18 18:16 Dose: Not Given Sodium Hypochlorite (Dakins Solution 0.25%) 20 ml TOP DAILY [facility] Last Admin: 12/09/18 10:47 Dose: 1 applic Tamsulosin HCl (Flomax) 0.4 mg PO DAILY [facility] Last Admin: 12/09/18 10:49 Dose: 0.4 mg Vitamin B Complex/Vit C/Folic Acid (Nephro-Sumit) 1 tab PO 0800 [facility] Last Admin: 12/09/18 08:17 Dose: 1 tab - Labs Labs: 12/09/18 07:30 12/09/18 07:30 PT 14.7 SECONDS (9.4-12.5) H 11/25/18 13:05 INR 1.30 11/25/18 13:05 APTT 26.3 Seconds (26.9-38.3) L 11/25/18 13:05 Assessment and Plan - Assessment and Plan (Free Text) Plan: Patient was seen, evaluated and examined by me at the bedside. I agree with assessment and plan as stated in the resident's note.
[2018-12-01] MEDS: Dakin's Topical 0.25%-Half Strength (480 ml) TOP SCH (11:47)
--- NOTE | 2018-12-01 13:33 | CP.PCM.PN ---
<Sylwia Chambers - Last Filed: 12/01/18 14:45> Subjective - Date & Time of Evaluation Date of Evaluation: 12/01/18 Time of Evaluation: 08:00 - Subjective Subjective: Sylwia Chambers DO, PGY-2: Progress Note for Dr. Ling Patient was seen and examined at bedside. Patient endorses no complaints. Nurse reports patient mentation and cognitive faculties have declined compared to when initially admitted. He has been afebrile in the last 24 hours. Objective - Vital Signs/Intake and Output Vital Signs (last 24 hours): Temp Pulse Resp BP Pulse Ox 98.3 F 116 H 17 107/65 98 12/01/18 06:00 12/01/18 06:00 12/01/18 06:00 12/01/18 06:00 12/01/18 06:00 Intake and Output: 12/01/18 12/01/18 06:59 18:59 Intake Total 240 Balance 240 - Medications Medications: Current Medications Acetaminophen (Tylenol 325mg Tab) 650 mg PO Q6H PRN PRN Reason: Pain, Mild (1-3) Acetaminophen (Tylenol 325mg Tab) 650 mg PO Q6 PRN PRN Reason: Fever >100.4 F Allopurinol (Zyloprim) 100 mg PO DAILY [facility] Last Admin: 12/01/18 09:40 Dose: 100 mg Aspirin (Ecotrin) 81 mg PO 0800 [facility] Last Admin: 12/01/18 08:32 Dose: 81 mg Atorvastatin Calcium (Lipitor) 20 mg PO DIN [facility] Last Admin: 11/30/18 17:54 Dose: 20 mg Cilostazol (Pletal) 50 mg PO BID [facility] Last Admin: 12/01/18 09:40 Dose: 50 mg Dextrose (Dextrose 50% Inj) 0 ml IV STAT PRN; Protocol PRN Reason: Hypoglycemia Protocol Docusate Sodium (Colace) 100 mg PO TID [facility] Last Admin: 12/01/18 09:37 Dose: 100 mg Ferrous Sulfate (Feosol) 324 mg PO BID [facility] Last Admin: 12/01/18 09:37 Dose: 324 mg Heparin Sodium (Porcine) (Heparin) 5,000 units SC Q8 [facility]; Protocol Last Admin: 12/01/18 05:44 Dose: 5,000 units Dextrose (Dextrose 5% In Water 1000 Ml) 1,000 mls @ 0 mls/hr IV .Q0M PRN; Protocol PRN Reason: Hypoglycemia Protocol Sodium Chloride (Sodium Chloride 0.9%) 1,000 mls @ 75 mls/hr IV .[id number] [facility] Stop: 12/02/18 10:16 Last Admin: 12/01/18 05:42 Dose: 75 mls/hr Meropenem/Sodium Chloride (Merrem Iv 500 Mg/Ns 50 Ml) 500 mg in 50 mls @ 100 mls/hr IVPB Q12 [facility]; Protocol Last Admin: 12/01/18 09:39 Dose: 100 mls/hr Insulin Human Lispro (Humalog Med) 0 units SC AC [facility]; Protocol Last Admin: 12/01/18 08:32 Dose: Not Given Insulin Human NPH (Humulin N) 25 units SC [facility] Last Admin: 12/01/18 08:31 Dose: 25 unit Metoprolol Tartrate (Lopressor) 25 mg PO Q8H [facility] Last Admin: 12/01/18 05:44 Dose: 25 mg Midodrine (Proamatine) 2.5 mg PO TID [facility] Last Admin: 12/01/18 09:40 Dose: 2.5 mg Morphine Sulfate (Morphine) 2 mg IVP Q4H PRN PRN Reason: Pain, severe (8-10) Last Admin: 11/30/18 20:55 Dose: 2 mg Ondansetron HCl (Zofran Inj) 4 mg IVP Q4H PRN PRN Reason: Nausea/Vomiting Pantoprazole Sodium (Protonix Ec Tab) 40 mg PO 0600 [facility] Last Admin: 12/01/18 05:44 Dose: 40 mg Polyethylene Glycol (Miralax) 17 gm PO BID [facility] Last Admin: 12/01/18 09:39 Dose: 17 gm Sodium Hypochlorite (Dakins Solution 0.25%) 20 ml TOP DAILY [facility] Last Admin: 12/01/18 11:47 Dose: Not Given Tamsulosin HCl (Flomax) 0.4 mg PO 1830 [facility] Last Admin: 11/30/18 17:54 Dose: 0.4 mg Vitamin B Complex/Vit C/Folic Acid (Nephro-Sumit) 1 tab PO 0800 [facility] Last Admin: 12/01/18 08:32 Dose: 1 tab - Labs Labs: 12/01/18 07:00 12/01/18 07:00 PT 14.7 SECONDS (9.4-12.5) H 11/25/18 13:05 INR 1.30 11/25/18 13:05 APTT 26.3 Seconds (26.9-38.3) L 11/25/18 13:05 - Constitutional Appears: Unkempt - Head Exam Head Exam: ATRAUMATIC, NORMOCEPHALIC - Eye Exam Eye Exam: EOMI, Normal appearance - ENT Exam ENT Exam: Mucous Membranes Moist - Neck Exam Neck Exam: Normal Inspection - Respiratory Exam Respiratory Exam: NORMAL BREATHING PATTERN. absent: Accessory Muscle Use - Cardiovascular Exam Cardiovascular Exam: RRR, +S1, +S2 - GI/Abdominal Exam GI & Abdominal Exam: Soft, Normal Bowel Sounds - Extremities Exam Extremities Exam: Normal Inspection. absent: Calf Tenderness - Back Exam Back Exam: NORMAL INSPECTION. absent: CVA tenderness (L), CVA tenderness (R) - Neurological Exam Neurological Exam: Alert, Awake, Oriented x3 - Psychiatric Exam Psychiatric exam: Normal Affect, Normal Mood - Skin Skin Exam: Dry, Intact, Normal Color, Warm Assessment and Plan - Assessment and Plan (Free Text) Assessment: 73 year old male with a past medical history of atrial fibrillation, gout, BPH, and DM II who [place] [facility] [place] non[place]healing [place] foot [place]. 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 - Surgery is following, OR tentatively next week - Cilostazol 50 mg BID - Meropenem 500 q12h - Morphine 2 mg q4h PRN for severe pain - ID is following 2) Atrial fibrillation - Metoprolol 25 mg q8h [facility] 3) Hypotension - Midodrine 2.5 mg TID 4) DM II - NPH 25 units ACBD - ISS Lispro (medium) 5) EMIL on CKD - Gentle NS - Nephrology is following - Nephrovite 1 tab 0800 6) Gout - Allopurinol 100 mg daily 7) BPH - Flomax 0.4 mg 8) CAD - Aspirin 81 mg - Atorvastatin 20 mg DIN 9) Constipation - Docusate 100 mg TID 10) GI/DVT prophylaxis - Protonix 40 mg - Heparin 5,000 units q8 11) Persistent Leukocytosis, unknown - Flow cytometry, plasma - Alkaline phosphatase isoenzymes - reticulocyte count ordered Case was reviewed and discussed with attending physician, Dr. Ling <Niranjan Lign U - Last Filed: 12/13/18 14:26> Objective - Vital Signs/Intake and Output Vital Signs (last 24 hours): Temp Pulse Resp BP Pulse Ox 98.3 F 94 H 17 93/57 L 99 12/12/18 14:00 12/12/18 14:00 12/12/18 14:00 12/12/18 14:00 12/12/18 14:00 - Medications Medications: Current Medications Acetaminophen (Tylenol 325mg Tab) 650 mg PO Q6 PRN PRN Reason: TEMP>=99.5F Last Admin: 12/12/18 22:42 Dose: 650 mg Acetaminophen (Tylenol 650 Mg Supp) 650 mg RC Q6H PRN PRN Reason: TEMP>=99.5F Dextrose (Dextrose 50% Inj) 0 ml IV STAT PRN; Protocol PRN Reason: Hypoglycemia Protocol Docusate Sodium (Colace) 100 mg PO TID [facility] Last Admin: 12/13/18 10:27 Dose: 100 mg Ferrous Gluconate (Fergon) 324 mg PO TID [facility] Last Admin: 12/13/18 10:28 Dose: 324 mg Heparin Sodium (Porcine) (Heparin) 5,000 units SC Q8 [facility]; Protocol Last Admin: 12/13/18 05:03 Dose: 5,000 units Dextrose (Dextrose 5% In Water 1000 Ml) 1,000 mls @ 0 mls/hr IV .Q0M PRN; Protocol PRN Reason: Hypoglycemia Protocol Insulin Human Lispro (Humalog Med) 0 units SC AC [facility]; Protocol Last Admin: 12/13/18 12:48 Dose: 5 units Insulin Human NPH (Humulin N) 17 units SC [facility] Last Admin: 12/13/18 10:28 Dose: 17 unit Metoclopramide HCl (Reglan) 10 mg IV ONCE PRN PRN Reason: Nausea/Vomiting Midodrine (Proamatine) 10 mg PO TID [facility] Last Admin: 12/13/18 10:28 Dose: 10 mg Nystatin (Nystop Topical Powder) 0 gm TOP BID [facility] Last Admin: 12/13/18 10:31 Dose: 1 appl Ondansetron HCl (Zofran Inj) 4 mg IVP Q4H PRN PRN Reason: Nausea/Vomiting Pantoprazole Sodium (Protonix Ec Tab) 40 mg PO 0600 [facility] Last Admin: 12/13/18 05:03 Dose: 40 mg Polyethylene Glycol (Miralax) 17 gm PO BID [facility] Last Admin: 12/13/18 10:28 Dose: 17 gm Tamsulosin HCl (Flomax) 0.4 mg PO DAILY [facility] Last Admin: 12/13/18 10:28 Dose: 0.4 mg Vitamin B Complex/Vit C/Folic Acid (Nephro-Sumit) 1 tab PO 0800 [facility] Last Admin: 12/13/18 10:28 Dose: 1 tab - Labs Labs: 12/13/18 07:00 12/13/18 07:00 PT 12.6 SECONDS (9.4-12.5) H 12/10/18 13:10 INR 1.12 12/10/18 13:10 APTT 30.3 Seconds (26.9-38.3) 12/10/18 13:10 Attending/Attestation - Attestation I have personally seen and examined this patient.: Yes I have fully participated in the care of the patient.: Yes I have reviewed all pertinent clinical information, including history, physical exam and plan: Yes Notes (Text): Please see/read my dictated notes.
--- NOTE | 2018-12-01 14:42 | CP.PCM.PN ---
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 stable renal fxn Hypertension control with meds as ordered. Maintain hemodynamics stable. Avoid hypotension. Patient not on ACEI/ARB due to EMIL and hyperkalemia tendency. consider to add once stable. Monitor Input/Output, daily weights and renal function with basic metabolic panel continue with iron and MVI. PRBC as needed. dose of aransep 40 mcg weekly held as Hb 11.2. K/L ratio remains high at 3.6. pending hematology eval vit d can be changed to once a month as last level 41 continue with flomax re-ordered IVF as NS as cr higher plan for TMA this week Dose meds/antibiotics for reduced GFR. Avoid fleets enema/magnesium based laxatives. Avoid nephrotoxins/NSAIDs/ iodinated contrast (unless needed e mergently) Glycemic control Further work up/management as per primary team Thanks for allowing me to participate in care of your patient. Will follow patient with you. Please call if any Qs. had d/w team and son Dr Anjum Padron Office: [phone] Chief Complaint; Foot ulcer Reason for consult: Acute Kidney Injury HPI: Pt is a 73 M with hx of diabetes Mellitus (30 years), hypertension (years) PVD, Gout CKD 3 with baseline cr 1.8-1.9 presented with complaints of foot ulcer, being managed for cellulitis. seen for EMIL and pt also with PVD Denies OTC/herbal meds or NSAIDs. No recent iodinated contrast exposure. Noted obvious episodes of low BP. pt still not aware about kidney disease in past ROS: noted overnight events Cardiovascular: No chest pain. Pulmonary: No shortness of breath Gastrointestinal: denies abdominal pain No nausea. No vomiting. Genitourinary: No pain while urinating. Denies blood in urine. All other negative except as mentioned in HPI. per son, pt refused to go for outpt follow ups Physical Examination: General Appearance: Comfortable, in no acute respiratory distress, co-operative . Vitals reviewed and noted as below Head; Atraumatic, normocephalic ENT: no ulcers no thrush. Tongue is midline. Oropharynx: no rash or ulcers. EYES: Pupils are equal, round and reactive to light accommodation. Eye muscles and extra-ocular movement intact. Sclera is anicteric. Neck; supple no lymphadenopathy, no thyromegaly or bruit Lungs: Normal respiratory rate/effort. Breath sounds bilateral equal and clear Heart: Incr rate. s1s2 normal. No rub or gallop. Extremities: no edema. No varicose veins. left foot in dressing Neurological: Patient is alert, awake and oriented to person, place and time. No focal deficit. Strength bilateral appropriate and equal Skin: Warm and dry. Normal turgor. No rash. Palpitation: Normal elasticity for age Abdomen: Abdomen is soft. Bowel sounds +. There is no abdominal tenderness, no guarding/rigidity no organomegaly Psych: lack insight and has normal affect/mood MSK: no joint tenderness or swelling. Digits and nails normal, no deformity : kidney or bladder not palpable. Labs/imaging reviewed. Past medical history, past surgical history, family history, social history, allergy reviewed and noted as below Family hx: no hx of CKD. Rest non-contributory Phos 3.5 TSAT 13% Vit D 41 PTH 49 LDL 103 kappa/lambda 3.4 uric acid 7.5 renal cyst left side Objective - Vital Signs/Intake and Output Vital Signs (last 24 hours): Temp Pulse Resp BP Pulse Ox 98.3 F 116 H 17 107/65 98 12/01/18 06:00 12/01/18 06:00 12/01/18 06:00 12/01/18 06:00 12/01/18 06:00 Intake and Output: 12/01/18 12/01/18 06:59 18:59 Intake Total 240 Balance 240 - Medications Medications: Current Medications Acetaminophen (Tylenol 325mg Tab) 650 mg PO Q6H PRN PRN Reason: Pain, Mild (1-3) Acetaminophen (Tylenol 325mg Tab) 650 mg PO Q6 PRN PRN Reason: Fever >100.4 F Allopurinol (Zyloprim) 100 mg PO DAILY [facility] Last Admin: 12/01/18 09:40 Dose: 100 mg Aspirin (Ecotrin) 81 mg PO 0800 [facility] Last Admin: 12/01/18 08:32 Dose: 81 mg Atorvastatin Calcium (Lipitor) 20 mg PO DIN [facility] Last Admin: 11/30/18 17:54 Dose: 20 mg Cilostazol (Pletal) 50 mg PO BID [facility] Last Admin: 12/01/18 09:40 Dose: 50 mg Dextrose (Dextrose 50% Inj) 0 ml IV STAT PRN; Protocol PRN Reason: Hypoglycemia Protocol Docusate Sodium (Colace) 100 mg PO TID [facility] Last Admin: 12/01/18 09:37 Dose: 100 mg Ferrous Sulfate (Feosol) 324 mg PO BID [facility] Last Admin: 12/01/18 09:37 Dose: 324 mg Heparin Sodium (Porcine) (Heparin) 5,000 units SC Q8 [facility]; Protocol Last Admin: 12/01/18 05:44 Dose: 5,000 units Dextrose (Dextrose 5% In Water 1000 Ml) 1,000 mls @ 0 mls/hr IV .Q0M PRN; Protocol PRN Reason: Hypoglycemia Protocol Sodium Chloride (Sodium Chloride 0.9%) 1,000 mls @ 75 mls/hr IV .[id number] [facility] Stop: 12/02/18 10:16 Last Admin: 12/01/18 05:42 Dose: 75 mls/hr Meropenem/Sodium Chloride (Merrem Iv 500 Mg/Ns 50 Ml) 500 mg in 50 mls @ 100 mls/hr IVPB Q12 [facility]; Protocol Last Admin: 12/01/18 09:39 Dose: 100 mls/hr Insulin Human Lispro (Humalog Med) 0 units SC AC [facility]; Protocol Last Admin: 12/01/18 08:32 Dose: Not Given Insulin Human NPH (Humulin N) 25 units SC ACBD [facility] Last Admin: 12/01/18 08:31 Dose: 25 unit Metoprolol Tartrate (Lopressor) 25 mg PO Q8H [facility] Last Admin: 12/01/18 05:44 Dose: 25 mg Midodrine (Proamatine) 2.5 mg PO TID [facility] Last Admin: 12/01/18 09:40 Dose: 2.5 mg Morphine Sulfate (Morphine) 2 mg IVP Q4H PRN PRN Reason: Pain, severe (8-10) Last Admin: 11/30/18 20:55 Dose: 2 mg Pantoprazole Sodium (Protonix Ec Tab) 40 mg PO 0600 [facility] Last Admin: 12/01/18 05:44 Dose: 40 mg Polyethylene Glycol (Miralax) 17 gm PO BID [facility] Last Admin: 12/01/18 09:39 Dose: 17 gm Sodium Hypochlorite (Dakins Solution 0.25%) 20 ml TOP DAILY [facility] Last Admin: 12/01/18 11:47 Dose: Not Given Tamsulosin HCl (Flomax) 0.4 mg PO 1830 [facility] Last Admin: 11/30/18 17:54 Dose: 0.4 mg Vitamin B Complex/Vit C/Folic Acid (Nephro-Sumit) 1 tab PO 0800 [facility] Last Admin: 12/01/18 08:32 Dose: 1 tab - Labs Labs: 12/01/18 07:00 12/01/18 07:00 PT 14.7 SECONDS (9.4-12.5) H 11/25/18 13:05 INR 1.30 11/25/18 13:05 APTT 26.3 Seconds (26.9-38.3) L 11/25/18 13:05
--- NOTE | 2018-12-02 00:39 | PN ---
DATE: 12/01/2018 SUBJECTIVE: The patient is in bed, in no acute distress, nontoxic, who was seen earlier this morning in room 577, bed 2. PHYSICAL EXAMINATION VITAL SIGNS: Temperature is 98, blood pressure is 107/60, respiratory rate of 18. HEENT: Unremarkable. NECK: Supple. LUNGS: Decreased breath sounds. HEART: Normal S1 and S2. ABDOMEN: Soft. LABORATORY EXAMINATION: Reveals a white count of 13,500, hemoglobin of 10. Chemistries reveals the patient's BUN of 37, creatinine of 2.0. ASSESSMENT AND PLAN: This is a 73-year-old who was seen early this morning, status post left helix second metatarsal amputation postoperative day #8, which chronic foot ulcer, Pseudomonas and group B Streptococcus, gouty tophus, schedule for the OR. Tai Landaverde MD
--- NOTE | 2018-12-02 02:08 | PN ---
DATE: 12/01/2018 SUBJECTIVE: The patient is seen lying in the bed in room 575, bed 2. The patient is alert, awake, responsive, oriented to person, place, disoriented to year, date, month, time. According to the nurse's notes, the patient was found to be alert, awake, oriented x2. The patient had to be constantly reoriented by the nurses periodically. PHYSICAL EXAMINATION VITAL SIGNS: T-max 98.7, heart rate 68 to 112 to 116, respirations 20, O2 sat 97%, blood pressure 107/65 to 111/65 to 122/75. HEAD: Normocephalic, atraumatic. HEENT: Shows pinkish pale conjunctivae. Anicteric sclerae. No oropharyngeal lesions. NECK: No neck rigidity. CHEST: Kyphosis. LUNGS: Shows no audible crackle, rales or wheezing. CARDIOVASCULAR: S1, S2, regular rhythm. Questionable soft systolic murmur left sternal border, right second intercostal space, left second intercostal space. ABDOMEN: Soft. Positive bowel sounds. GENITALIA: Male. RECTAL: Deferred. EXTREMITIES: Shows positive left foot dressing. No pitting edema, no calf tenderness, no Homans' sign. MUSCULOSKELETAL: Shows a body mass index of 23. NEUROLOGIC: The patient is alert, awake, responsive, oriented to person and place, disoriented to year, date, and month. DIAGNOSTICS: 12/01/2018; WBC 13.5, hemoglobin and hematocrit 10.8 and 33.1, platelets 540, granulocytes 74, 77% segs. Sodium 139, potassium 4.2, chloride 102, CO2 of 28, anion gap 13, BUN 37, creatinine 2, GFR 33, glucose 141, 156, 126, 232, 202, calcium 9.1, phosphorus 3.7, magnesium 2.2. LFTs are normal. Wound cultures of the left foot and toe Proteus mirabilis, Pseudomonas aeruginosa and beta hemolytic strep group B. IMPRESSION 1. Left foot great toe acute osteomyelitis and gangrenous necrosis with gouty tophi with acute gangrenous necrosis and acute osteomyelitis. 2. High-grade fever. 3. Tachycardia. 4. Hypotension. 5. Proteus mirabilis, Pseudomonas aeruginosa and beta hemolytic streptococcus group B left foot great toe osteomyelitis, diabetic foot ulceration and cellulitis. 6. Severe peripheral vascular disease. 7. Refractory leukocytosis. 8. Granulocytosis. 9. Elevated erythrocyte sedimentation rate of 122. 10. Normocytic anemia. 11. Status post packed red blood cell transfusion x3. 12. Uncontrolled insulin-requiring diabetes mellitus with hyperglycemia and hemoglobin A1c of 8.6 and fructosamine of 329. 13. Gait dysfunction secondary to nonweightbearing status of the left foot and toe. 14. Deconditioning. 15. Questionable delirium. 16. Iron-deficiency. 17. Hypertriglyceridemia with decreased high-density lipoprotein. 18. Lactic acidosis. 19. Elevated C-reactive protein no greater than 15. 20. Acute kidney injury with underlying chronic kidney disease, stage 3/4. 21. Proteinuria. 22. Microscopic hematuria, pyuria, bacteriuria. 23. Questionable monoclonal gammopathy of unknown significance with elevated kappa to lambda ratio. 24. Status post left foot great toe amputation and second metatarsal amputation and removal of the third and fourth toe nail and wound debridement. 25. Hypertensive diabetic chronic kidney disease. 26. Severe mitral regurgitation with systolic congestive heart failure and cardiomyopathy with ejection fraction of 35%. 27. Monoclonal gammopathy of unknown significance. 28. Episodic confusion and disorientation. 29. Constipation. 30. Insulin-requiring diabetes mellitus. 31. Hypertension. 1. 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 2. Recurrent fever. 3. Tachycardia. 4. Hypertension. 5. Persistent refractory leukocytosis. 6. Normocytic anemia. 7. Status post packed red blood cell transfusion x3. 8. Reactive thrombocytosis. 9. Granulocytosis. 10. Acute kidney injury with chronic kidney disease stage 4. 11. Status post left foot left great toe amputation and metatarsal amputation. 12. Status post left foot second and third toe removal. 13. Left foot wound debridement. 14. Severe peripheral vascular disease. 15. Uncontrolled diabetes mellitus with hyperglycemia and elevated hemoglobin A1c. 16. Transitional confusional and disorientation state. 17. Possible delirium versus toxic metabolic encephalopathy. 18. Hypotension. 1. Pseudomonas aeruginosa, Proteus mirabilis and beta hemolytic group B Streptococcus, left foot diabetic ulceration and gangrene. 2. Status post status post left foot great toe amputation and metatarsal amputation. 3. Status post removal of the second and third toe nail. 4. Status post left foot wound debridement. 5. Severe peripheral vascular disease of the lower extremity with ankle-brachial indexes of less than 1. 6. History of chronic osteomyelitis of the left foot. 7. Normocytic anemia. 8. Refractory leukocytosis, slow resolving. 9. Reactive thrombocytosis. 10. Leukocytosis with granulocytosis. 11. Status post packed red blood cell transfusion x3. 12. Hypertensive and diabetic chronic kidney disease stage III. 13. Uncontrolled diabetes mellitus with hyperglycemia and elevated hemoglobin A1c. 14. Deconditioning. 15. Gait dysfunction. 16. Questionable delirium versus encephalopathy versus transient confusional and disorientation state. 17. History of hyperuricemia and gout. 18. History of poor compliance, noncompliance. 19. Tachycardia. 20. High-grade fever. 21. Transient hypotension. 22. Dilated cardiomyopathy with left ventricular ejection fraction of 35%. 23. Severe mitral and tricuspid regurgitation. 24. Severe peripheral vascular disease of the lower extremity. 1. Sepsis, secondary to left foot diabetic foot ulceration secondary to Proteus mirabilis, Pseudomonas aeruginosa, beta hemolytic group B strep. 2. High-grade fever. 3. Tachycardia. 4. Episodic hypotension. 5. Leukocytosis with granulocytosis. 6. Acute kidney injury with underlying chronic kidney disease stage 4. 7. Uncontrolled non-insulin requiring diabetes mellitus with hyperglycemia and elevated hemoglobin A1c and elevated fructosamine of 329. 8. Episodic disorientation and confusion, possible questionable delirium versus toxic metabolic encephalopathy. 9. Proteinuria, microscopic hematuria, bacteriuria. 10. Monoclonal gammopathy, of unknown significance. 11. Metabolic acidosis. 12. Hypertensive, diabetic, chronic kidney disease stage 3. 13. Severe mitral, tricuspid regurgitation with systolic congestive heart failure and cardiomyopathy with ejection fraction of 35%. 14. Left foot grade 2 amputation, second metatarsal amputation, and third and fourth toe toenail removal and wound debridement. 15. Cardiomyopathy. 16. Severe peripheral vascular disease of the lower extremity. 17. Persistent refractory leukocytosis. 18. Chronic microvascular ischemic disease of the brain and cerebral cortical atrophy of the brain. 19. Gait dysfunction. 20. Deconditioning. 21. Transient confusion state secondary to transient cerebral hypoperfusion and hyperglycemic fluctuations. 1. Status post left foot great toe amputation and second metatarsal amputation and third and fourth digit toenail removal and left foot wound debridement, postop day #1. 2. Chronic nonhealing left foot diabetic foot ulceration and possible gangrene. 3. Fever. 4. Tachycardia. 5. Hypotension. 6. Persistent refractory leukocytosis with granulocytosis. 7. Normocytic anemia, status post packed red blood cell transfusion x3. 8. Uncontrolled diabetes mellitus with hyperglycemia and elevated hemoglobin A1c of 8.6. 9. Hyper fructosemia. 10. Lactic acidosis. 11. Hyperuricemia. 12. Possible iron-deficiency. 13. Elevated C-reactive protein of greater than 15. 14. Hypertriglyceridemia. 15. Proteinuria. 16. Microscopic hematuria. 17. Bacteriuria. 18. Elevated total kappa lambda ratio. 19. Pseudomonas aeruginosa and beta hemolytic strep group B left foot diabetic foot ulceration. 20. Status post packed red blood cell transfusion x3. 21. Left foot cellulitis. 22. Chronic microvascular ischemic disease of the brain and cerebral cortical atrophy of the brain. 23. Sepsis with Pseudomonas aeruginosa and group B Streptococcus beta hemolytic Streptococcus left foot diabetic foot ulcerations and cellulitis. 24. Kidney injury with underlying chronic kidney disease. 25. Hypertensive diabetic chronic kidney disease. 26. Stage III chronic kidney disease secondary to hypertension and vasculopathy. 27. Anemia. 28. Monoclonal gammopathy of unknown significance. 29. Transient and episodic confusion and disorientation, probably secondary to transient cerebral hypoperfusion and uncontrolled diabetes mellitus. 30. Sepsis. 1. Group B Streptococcus and Pseudomonas aeruginosa, left foot diabetic foot ulceration and gangrene and cellulitis. 2. History of chronic osteomyelitis of the left foot. 3. High-grade fever. 4. Questionable sepsis versus systemic inflammatory response syndrome. 5. Tachycardia. 6 Hypotension. 7. Questionable and possible encephalopathy versus toxic metabolic encephalopathy with episodic confusion and disorientation. 8. Type 2 diabetes mellitus. 9. Anemia of chronic disease. 10. Status post packed red blood cell transfusion x2. 11. Gait dysfunction. 12. Deconditioning. 13. Status post left foot big toe amputation,2nd metatarsal amputation, wound debridement and 3rd and 4th toe nail removal. 14. Persistent refractory leukocytosis with granulocytosis 15. Normocytic anemia. 16. Uncontrolled type 2 diabetes mellitus with hyperglycemia. 17. Microvascular ischemic disease of the brain. 18. Cerebral cortical atrophy of the brain. 19. Gait dysfunction with nonweightbearing status of the left foot. 20. Severe peripheral vascular disease of the lower extremity with severe bilateral tibial and distal lower extremities severe occlusive disease with ankle-brachial index is of less than 1. 21. History of hypertension. 22. History of gout and hyperuricemia. 23. History of gouty arthritis. 24. Dilated cardiomyopathy with ejection fraction of 35% with severe mitral and tricuspid regurgitation. 25. Acute kidney injury with underlying chronic kidney disease stage III. 26. Proteinuria and microscopic hematuria. 1. High-grade fever and new fever. 2. Tachycardia. 3. Hypotension. 4. Questionable sepsis versus systemic inflammatory response syndrome with high-grade fever, tachycardia, hypotension. 5. Persistent refractory leukocytosis with granulocytosis. 6. Normocytic anemia. 7. Status post packed red blood cell transfusion x2. 8. Uncontrolled type 2 noninsulin-requiring diabetes mellitus with hyperglycemia. 9. Left foot Pseudomonas aeruginosa, group B Streptococcus with beta-hemolytic left foot, and left foot diabetic ulceration and possible diabetic left foot gangrene. 10. Proteinuria. 11. Microscopic hematuria. 12. Bacteriuria. 13. Left foot group B streptococcal beta-hemolytic and Pseudomonas aeruginosa left foot diabetic foot ulceration. 14. Episodic disorientation and confusion, etiology undetermined. 15. Questionable toxic metabolic encephalopathy. 16. Hyperglycemia secondary to uncontrolled diabetes mellitus. 17. Status post packed red blood cell transfusion x2. 18. Persistent refractory leukocytosis. 19. Left foot diabetic ulceration and diabetic cellulitis. 20. Dilated cardiomyopathy. 21. History of poor compliance and noncompliance. 22. History of hyperuricemia and gout. 23. 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 24. Gait dysfunction. 25. Deconditioning. 1. Left foot diabetic ulceration and nonhealing diabetic ulceration with possible diabetic gangrene of the left foot and great toe and the left foot toes with group B Streptococcus and Pseudomonas aeruginosa, cellulitis and diabetic foot gangrene of the left foot. 2. Uncontrolled diabetes mellitus with elevated hemoglobin A1c. 3. Fever. 4. Questionable sepsis. 5. Tachycardia. 6. Possible sepsis versus systemic inflammatory response syndrome. 7. Fever. 8. Transient hypotension. 9. Dilated cardiomyopathy. 10. Persistent refractory leukocytosis. 11. Normocytic anemia status post packed red blood cell transfusion. 12. Granulocytosis. 13. Acute kidney injury with underlying chronic kidney disease, stage IV. 14. Uncontrolled diabetes mellitus with hyperglycemia and an elevated hemoglobin A1c and hyperfructosemia. 15. History of poor compliance and noncompliance. 16. History of hyperuricemia and gout. 17. Severe peripheral vascular disease. 18. History of severe peripheral vascular disease of the lower extremity. 19. Severe mitral and tricuspid regurgitation. 20. Cardiomyopathy with ejection fraction of around 35%. 21. History of poor compliance. 22. History of chronic osteomyelitis of the left foot and partial amputation of the left foot second toe. 1. Fever. 2. Sinus tachycardia. 3. Pseudomonas nose group. Group B streptococcus group B beta hemolytic left foot diabetic foot ulcerations and cellulitis and gangrene. 4. Severe peripheral vascular disease. 5. Persistent refractory leukocytosis with granulocytosis. 6. Anemia with decreasing hemoglobin/hematocrit. 7. Elevated erythrocyte sedimentation rate of 122. 8. Chronic kidney disease, stage 3. 9. Hyperglycemia secondary to uncontrolled diabetes mellitus with hemoglobin A1c of 8.6 and hyper fructose anemia. 10. Transaminitis. 11. Iron-deficiency anemia. 12. Hypertriglyceridemia. 13. Elevated C-reactive protein of greater than 15. 14. Lactic acidosis. 15. Status post packed red blood cell transfusions x2. 16. Left foot erosive changes. 17. Severe peripheral vascular disease of bilateral popliteal trifurcation and tibial disease with normal resting ankle-brachial indices. 18. Chronic osteomyelitis of the left foot with bony destruction and sclerosis around the first metatarsophalangeal joint and partial amputation of the second proximal phalanx. 19. Severe degenerative joint disease of the left midfoot. 20. Left axis deviation. 21. Acute kidney injury with underlying chronic kidney disease. 22. Metabolic acidosis. 23. Hypertensive diabetic chronic kidney disease stage 3 without proteinuria. 24. Monoclonal gammopathy of unknown significance. 25. Severe mitral, tricuspid regurgitation with cardiomyopathy, left ventricular ejection fraction of 35% to 40%. 26. Left foot diabetic foot ulceration and gangrene. 27. Congestive heart failure with reduced ejection fraction. 28. Nonhealing left foot diabetic ulceration. 29. Sepsis with left foot cellulitis and diabetic foot ulceration with Pseudomonas secondary to Pseudomonas aeruginosa and Streptococcus group B beta hemolytic Streptococcus. 30. Questionable and possible delirium versus encephalopathy. 31. Gait dysfunction. 32. Deconditioning. 33. Constipation. 34. Hypovitaminosis D. 35. Prostatic hypertrophy. 36. Hyperlipidemia. 37. Hyperuricemia. 38. Hyperglycemia. 39. Uncontrolled diabetes mellitus with hyperglycemia. 40. Gait dysfunction. 41. History of poor compliance and noncompliance. 1. Left foot Pseudomonas aeruginosa and group B beta hemolytic strep, left foot diabetic foot ulceration and cellulitis. 2. Sepsis secondary to Pseudomonas aeruginosa and group B beta hemolytic strep, left diabetic foot ulceration and cellulitis. 3. Hypertension. 4. Tachycardia. 5. Anemia. 6. Status post packed red blood cell transfusion one unit. 7. Leukocytosis with granulocytosis. 8. Elevated erythrocyte sedimentation rate of 122. 9. Iron-deficiency. 10. Acute kidney injury with underlying chronic kidney disease, stage IV. 11. Uncontrolled diabetes mellitus with hyperglycemia and elevated hemoglobin A1c of 8.6 and elevated fructose, a mean of 329. 12. Transient lactic acidosis. 13. Transaminitis. 14. Hypertriglyceridemia. 15. Elevated C-reactive protein of greater than 15. 16. Gait dysfunction. 17. Deconditioning. 18. Metabolic acidosis. 19. 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 20. Severe mitral, tricuspid regurgitation and systolic congestive heart failure. 21. Left foot cellulitis and left foot diabetic ulceration. 22. Left diabetic foot ulceration and possible gangrene or pre-gangrenous condition of the left foot toes. 23. Left foot second digit amputation. 24. Peripheral vascular disease. 25. Left foot second toe amputation with cyanosis and mummification of the toes and forefoot of the left foot. 26. Severe tibial disease of the lower extremity. 27. Peripheral vascular disease. 28. Anemia of chronic disease. 29. Bilateral popliteal trifurcation and tibial disease. 30. Left anterior hemiblock. 1. Left foot Pseudomonas aeruginosa and group B Streptococcus beta hemolytic left foot cellulitis and diabetic foot ulcer. 2. Severe peripheral vascular disease of the lower extremity. 3. Normocytic anemia with decreasing hemoglobin. 4. Leukocytosis with granulocytosis. 5. Uncontrolled diabetes mellitus with hyperglycemia. 6. Acute kidney injury with underlying chronic kidney disease stage III/IV. 7. Transaminitis. 8. Probably anemia of chronic kidney disease. 9. Acute kidney injury with underlying chronic kidney disease. 10. Metabolic acidosis. 11. Hypertensive diabetic chronic kidney disease. 12. [id number] mitral regurgitation and [id number] tricuspid regurgitation. 13. Dilated cardiomyopathy with ejection fraction of 35%. 14. Sepsis. 15. Hypertension. 16. Gait dysfunction. 17. Deconditioning. 18. Bilateral lower extremity peripheral vascular disease. 19. History of poor compliance and noncompliance. 20. History of hyperuricemia and gout. 1. Left foot cellulitis versus gangrene versus pregangrenous state. 2. Sepsis. 3. Tachycardia. 4. Transient episodic hypotension. 5. Leukocytosis with granulocytosis 6. Elevated erythrocyte sedimentation rate of 122. 7. Normocytic anemia. 8. Chronic kidney disease stage 4 with acute kidney injury. 9. Uncontrolled noninsulin-requiring diabetes mellitus with hyperglycemia and hemoglobin A1c of 8.6. 10. Possible iron-deficiency. 11. Hypertriglyceridemia. 12. Elevated C-reactive protein of greater than 15. 13. Transient lactic acidosis. 14. Transaminitis. 15. Deconditioning. 16. Gait dysfunction. 17. Anemia with decreasing hemoglobin and hematocrit. 18. Metabolic acidosis. 19. Diabetic hypertensive chronic kidney disease. 20. Chronic kidney disease stage 3 without proteinuria. 21. Severe mitral and tricuspid regurgitation. 22. Systolic congestive heart failure. 23. Dilated ischemic cardiomyopathy, etiology undetermined. 1. Left foot cellulitis with diabetic foot disease and possible abscess versus possible osteomyelitis. 2. History of left foot second toe amputation. 3. Hypertension. 4. Tachycardia. 5. Fever. 6. Poor compliance and noncompliance. 7. Leukocytosis with granulocytosis. 8. Normocytic anemia. 9. Elevated erythrocyte sedimentation rate of 122. 10. Chronic kidney disease, stage IV with acute kidney injury. 11. Transient lactic acidosis. 12. History of hyperuricemia. 13. Hypertriglyceridemia. 14. Aortic calcification. 15. Bilateral lower extremity popliteal trifurcation and tibial peripheral vascular disease. 16. Left foot first metatarsophalangeal joint bony destruction and sclerosis, chronic osteomyelitis. 17. 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 18. 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 19. Sinus tachycardia with left anterior hemiblock. 20. Deconditioning. 21. History of poor compliance. 22. Chronic dilated ischemic cardiomyopathy with ejection fraction of . 23. History of hypertension. 24. History of heart failure with reduced ejection fraction of 35%. 25. Pulmonary hypertension with right ventricular systolic pressure of 40 mmHg. 26. Left ventricular global hypokinesis and moderately impaired left ventricular systolic function. 27. Mild aortic regurgitation. 28. Moderate to severe mitral regurgitation. 29. Moderate tricuspid regurgitation. 30. History of constipation. 31. Hypovitaminosis D. 32. History of iron-deficiency anemia. 33. Prostatic hypertrophy. 34. Insulin-requiring diabetes mellitus. 35. Hyperlipidemia. 36. History of peripheral vascular disease. 37. Hyperuricemia. 1. Left foot diabetic foot ulceration versus left foot abscess versus left foot toe osteomyelitis. 2. Tachycardia. 3. Leukocytosis with granulocytosis. 4. Questionable systemic inflammatory response syndrome. 5. Uncontrolled diabetes mellitus with hyperglycemia. 6. Chronic kidney disease stage IV. 7. Mild transaminitis. 8. History of hypertension. 9. Hyperlipidemia. 10. History of prostatic hypertrophy. 11. History of iron-deficiency anemia. 12. History of hypovitaminosis D. 13. History of dilated cardiomyopathy. 14. History of pulmonary hypertension. 15. History of moderate tricuspid regurgitation and mitral regurgitation. 16. Hyperuricemia. PLAN: At this time, the patient has been ordered serial labs. Current consultations; Interventional Radiology, Podiatry, Cardiology, Vascular Surgery, Gastroenterology, Hematology/Oncology, Infectious Disease, Nephrology, Neurology. The case is referred for nurse educator. TCU evaluation. CURRENT MEDICATIONS: Colace 100 mg three times a day, Dakin solution daily to the left foot, hypoglycemia protocol, Ecotrin 81 mg daily, heparin 5000 subcu every 8 hours, Humalog medium dose sliding scale coverage a.c. and at bedtime, NPH 25 units with breakfast and dinner, Lopressor 25 mg every 8 hours, meropenem 500 mg IV every 12 hours, MiraLax 17 g twice a day, morphine 2 mg IV every 4 hours p.r.n., Nephro-Sumit 1 tablet daily, midodrine started at 2.53 mg times a day, Protonix 40 mg daily, IV fluid 0.9 normal saline at 175 mL/hour till 12/02/2018, Tylenol p.o. suppository every 6 hours p.r.n., allopurinol 100 mg daily. At present, the patient is to be continued on the above therapeutic intervention. The patient is scheduled for transmetatarsal amputation of the left foot in the morning as per the surgery team. The patient has been ordered, head of the bed at 30 degrees, out of bed to chair with nonweightbearing to the left foot. At present, the patient is awaiting further surgical intervention by the surgery for left foot transmetatarsal amputation. Dictated and electronically signed, not read. Niranjan Ling MD [facility]
[2018-12-02] MEDS: Pantoprazole 40 mg EC Tab PO SCH (06:02)
[2018-12-02 07:39] LABS: BASO # 0.03 K/mm3 (0.0-2.0); BASO % 0.3 % (0.0-3.0); EOS # 0.2 (0.0-0.7); HEMOGLOBIN 10.3 g/dL (14.0-18.0); LYMPH # 1.2 (1.2-3.4); LYMPH % 10.2 % (22.0-35.0); MEAN CELL VOLUME 94.6 fl (80.0-105.0); MEAN CORPUSCULAR HEMOGLOBIN 31.1 pg (25.0-35.0); MEAN CORPUSCULAR HGB CONC 32.9 g/dl (31.0-37.0); MEAN PLATELET VOLUME 9.1 fl (7.0-11.0); MONO # 1.4 (0.1-0.6); RBC 3.31 10^6/uL (3.5-6.1); RED CELL DISTRIBUTION WIDTH 16.5 % (11.5-14.5); WHITE BLOOD COUNT 11.8 10^3/uL (4.5-11.0)
[2018-12-02] MEDS: Insulin Human NPH 1 UNITS/0.01 ML SC SCH ×3 (07:46→18:04)
[2018-12-02] MEDS: Insulin Lispro (humaLOG) MEDIUM Coverage SC SCH ×3 (07:47→18:03)
[2018-12-02] MEDS: Multivitamin Vitamin B Complex (Nephro-Vite) Tab PO SCH (07:51)
[2018-12-02 08:25] LABS: ALB/GLOB RATIO 0.9 (1.1-1.8); ALBUMIN 3.3 g/dL (3.0-4.8); BILIRUBIN,DIRECT 0.2 mg/dL (0.0-0.4)
--- NOTE | 2018-12-02 08:38 | CP.PCM.PN ---
<Romain Hannon - Last Filed: 12/02/18 08:34> Subjective - Date & Time of Evaluation Date of Evaluation: 12/02/18 Time of Evaluation: 08:34 - Subjective Subjective: PGY1 General Surgery Progress Note for Dr. Sosa Patient seen and evaluated at bedside this morning. No acute events overnight. No new complaints. Patient otherwise denies chest pain, shortness of breath, fever, chills, nausea, vomiting, and/or abdominal pain. Objective - Vital Signs/Intake and Output Vital Signs (last 24 hours): Temp Pulse Resp BP Pulse Ox 100.3 F H 102 H 18 106/66 97 12/01/18 22:00 12/02/18 06:02 12/01/18 22:00 12/02/18 06:02 12/01/18 22:00 - Medications Medications: Current Medications Acetaminophen (Tylenol 325mg Tab) 650 mg PO Q6H PRN PRN Reason: Pain, Mild (1-3) Acetaminophen (Tylenol 325mg Tab) 650 mg PO Q6 PRN PRN Reason: Fever >100.4 F Allopurinol (Zyloprim) 100 mg PO DAILY [facility] Last Admin: 12/01/18 09:40 Dose: 100 mg Dextrose (Dextrose 50% Inj) 0 ml IV STAT PRN; Protocol PRN Reason: Hypoglycemia Protocol Docusate Sodium (Colace) 100 mg PO TID [facility] Last Admin: 12/01/18 17:37 Dose: Not Given Heparin Sodium (Porcine) (Heparin) 5,000 units SC Q8 [facility]; Protocol Last Admin: 12/02/18 06:01 Dose: 5,000 units Dextrose (Dextrose 5% In Water 1000 Ml) 1,000 mls @ 0 mls/hr IV .Q0M PRN; Protocol PRN Reason: Hypoglycemia Protocol Sodium Chloride (Sodium Chloride 0.9%) 1,000 mls @ 75 mls/hr IV .[id number] [facility] Stop: 12/02/18 10:16 Last Admin: 12/01/18 14:43 Dose: 75 mls/hr Meropenem/Sodium Chloride (Merrem Iv 500 Mg/Ns 50 Ml) 500 mg in 50 mls @ 100 mls/hr IVPB Q12 [facility]; Protocol Last Admin: 12/01/18 22:37 Dose: 100 mls/hr Insulin Human Lispro (Humalog Med) 0 units SC AC [facility]; Protocol Last Admin: 12/02/18 07:47 Dose: Not Given Insulin Human N[facility] ([facility]ulin N) [facility] Last Admin: 12/02/18 07:52 Dose: 20 u Metoprolol Tartrate (Lopressor) 25 mg PO Q8H [facility] Last Admin: 12/02/18 06:02 Dose: 25 mg Midodrine (Proamatine) 2.5 mg PO TID [facility] Last Admin: 12/01/18 17:41 Dose: 2.5 mg Morphine Sulfate (Morphine) 2 mg IVP Q4H PRN PRN Reason: Pain, severe (8-10) Last Admin: 11/30/18 20:55 Dose: 2 mg Polyethylene Glycol (Miralax) 17 gm PO BID [facility] Last Admin: 12/01/18 17:41 Dose: Not Given Sodium Hypochlorite (Dakins Solution 0.25%) 20 ml TOP DAILY [facility] Last Admin: 12/01/18 11:47 Dose: Not Given - Labs Labs: 12/02/18 07:10 12/02/18 07:10 PT 14.7 SECONDS (9.4-12.5) H 11/25/18 13:05 INR 1.30 11/25/18 13:05 APTT 26.3 Seconds (26.9-38.3) L 11/25/18 13:05 - Additional Findings Additional findings: - Constitutional Appears: Non-toxic, No Acute Distress - Head Exam Head Exam: ATRAUMATIC, NORMOCEPHALIC - Eye Exam Eye Exam: EOMI. absent: Scleral icterus - Respiratory Exam Respiratory Exam: NORMAL BREATHING PATTERN. absent: Respiratory Distress - Extremities Exam Extremities Exam: absent: Calf Tenderness, Pedal Edema Additional comments: Left foot wound with some necrotic skin edges, some granulation and fibrous tissue in wound bed. Foot cooler to touch than prior days. - Neurological Exam Neurological Exam: Awake Assessment and Plan - Assessment and Plan (Free Text) Assessment: 73M POD#8 s/p left hallux amputation, 2nd metatarsal amputation 2/2 for chronic left foot non-healing wound Plan: - PT to work on range of motion of L leg - BID wet to dry dressing w/ Dakin's solution - cont Abx per ID - cont pain management PRN - pt cleared for transfer to TCU from surgical standpoint; pending placement - planing for definitive TMA tentatively next week Will discuss with Dr. Ian Hannon PGY1 <Kain Sosa - Last Filed: 12/09/18 19:26> Objective - Vital Signs/Intake and Output Vital Signs (last 24 hours): Temp Pulse Resp BP Pulse Ox 98.4 F 94 H 20 97/62 L 100 12/09/18 13:44 12/09/18 13:44 12/09/18 13:44 12/09/18 13:44 12/09/18 13:44 Intake and Output: 12/09/18 12/10/18 18:59 06:59 Intake Total 480 Output Total 300 Balance 180 - Medications Medications: Current Medications Acetaminophen (Tylenol 325mg Tab) 650 mg PO Q6H PRN PRN Reason: Pain, Mild (1-3) Last Admin: 12/08/18 09:31 Dose: 650 mg Acetaminophen (Tylenol 325mg Tab) 650 mg PO Q6 PRN PRN Reason: Fever >100.4 F Dextrose (Dextrose 50% Inj) 0 ml IV STAT PRN; Protocol PRN Reason: Hypoglycemia Protocol Dextrose (Dextrose 50% Inj) 0 ml IV STAT PRN; Protocol PRN Reason: Hypoglycemia Protocol Docusate Sodium (Colace) 100 mg PO TID [facility] Last Admin: 12/09/18 18:14 Dose: 100 mg Famotidine (Pepcid) 20 mg PO 1000,2200 [facility] Stop: 12/11/18 10:01 Last Admin: 12/09/18 10:50 Dose: 20 mg Ferrous Gluconate (Fergon) 324 mg PO TID [facility] Last Admin: 12/09/18 18:14 Dose: 324 mg Heparin Sodium (Porcine) (Heparin) 5,000 units SC Q8 [facility]; Protocol Last Admin: 12/09/18 15:31 Dose: 5,000 units Dextrose (Dextrose 5% In Water 1000 Ml) 1,000 mls @ 0 mls/hr IV .Q0M PRN; Stephany col PRN Reason: Hypoglycemia Protocol Meropenem/Sodium Chloride (Merrem Iv 500 Mg/Ns 50 Ml) 500 mg in 50 mls @ 100 mls/hr IVPB Q12 [facility]; Protocol Last Admin: 12/09/18 10:51 Dose: 100 mls/hr Dextrose (Dextrose 5% In Water 1000 Ml) 1,000 mls @ 0 mls/hr IV .Q0M PRN; Protocol PRN Reason: Hypoglycemia Protocol Insulin Human Lispro (Humalog Med) 0 units SC AC [facility]; Protocol Last Admin: 12/09/18 17:00 Dose: 1 units Insulin Human NPH (Humulin N) 17 units SC ACBD [facility] Last Admin: 12/09/18 17:03 Dose: 17 unit Midodrine (Proamatine) 5 mg PO TID [facility] Last Admin: 12/09/18 18:14 Dose: 5 mg Nystatin (Nystop Topical Powder) 0 gm TOP BID [facility] Last Admin: 12/09/18 18:17 Dose: 1 appl Ondansetron HCl (Zofran Inj) 4 mg IVP Q4H PRN PRN Reason: Nausea/Vomiting Pantoprazole Sodium (Protonix Ec Tab) 40 mg PO 0600 [facility] Last Admin: 12/09/18 05:37 Dose: 40 mg Polyethylene Glycol (Miralax) 17 gm PO BID [facility] Last Admin: 12/09/18 18:16 Dose: Not Given Sodium Hypochlorite (Dakins Solution 0.25%) 20 ml TOP DAILY [facility] Last Admin: 12/09/18 10:47 Dose: 1 applic Tamsulosin HCl (Flomax) 0.4 mg PO DAILY [facility] Last Admin: 12/09/18 10:49 Dose: 0.4 mg Vitamin B Complex/Vit C/Folic Acid (Nephro-Sumit) 1 tab PO 0800 [facility] Last Admin: 12/09/18 08:17 Dose: 1 tab - Labs Labs: 12/09/18 07:30 12/09/18 07:30 PT 14.7 SECONDS (9.4-12.5) H 11/25/18 13:05 INR 1.30 11/25/18 13:05 APTT 26.3 Seconds (26.9-38.3) L 11/25/18 13:05 Assessment and Plan - Assessment and Plan (Free Text) Plan: Patient was seen, evaluated and examined by me at the bedside. I agree with assessment and plan as stated in the resident's note.
[2018-12-02] MEDS: Dakin's Topical 0.25%-Half Strength (480 ml) TOP SCH (10:34)
[2018-12-02] MEDS: MEROPENEM 500 MG in NS 500 MG/50 ML BAG IVPB SCH ×2 (10:35→21:43)
[2018-12-02] MEDS: POLYETHYLENE GLYCOL 3350 17 GM/Dose PACKET PO SCH ×2 (10:35→18:09)
--- NOTE | 2018-12-02 10:57 | CP.PCM.PN ---
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 stable renal fxn Hypertension control with meds as ordered. Maintain hemodynamics stable. Avoid hypotension. Patient not on ACEI/ARB due to EMIL and hyperkalemia tendency. consider to add once stable. Monitor Input/Output, daily weights and renal function with basic metabolic panel continue with iron and MVI. PRBC as needed. dose of aransep 40 mcg weekly held as Hb 11.2. K/L ratio remains high at 3.6. pending hematology eval vit d can be changed to once a month as last level 41 continue with flomax d/c IVF. can give further as needed plan for TMA as per podiatry/surgery Dose meds/antibiotics for reduced GFR. Avoid fleets enema/magnesium based laxatives. Avoid nephrotoxins/NSAIDs/ iodinated contrast (unless needed emergently) Glycemic control Further work up/management as per primary team Thanks for allowing me to participate in care of your patient. Will follow patient with you. Please call if any Qs. had d/w team and son Dr Anjum Padron Office: [phone] Chief Complaint; Foot ulcer Reason for consult: Acute Kidney Injury HPI: Pt is a 73 M with hx of diabetes Mellitus (30 years), hypertension (years) PVD, Gout CKD 3 with baseline cr 1.8-1.9 presented with complaints of foot ulcer, being managed for cellulitis. seen for EMIL and pt also with PVD Denies OTC/herbal meds or NSAIDs. No recent iodinated contrast exposure. Noted obvious episodes of low BP. pt still not aware about kidney disease in past ROS: noted overnight events Cardiovascular: No chest pain. Pulmonary: No shortness of breath Gastrointestinal: denies abdominal pain No nausea. No vomiting. Genitourinary: No pain while urinating. Denies blood in urine. All other negative except as mentioned in HPI. per son, pt refused to go for outpt follow ups Physical Examination: General Appearance: Comfortable, in no acute respiratory distress, co-operative . Vitals reviewed and noted as below Head; Atraumatic, normocephalic ENT: no ulcers no thrush. Tongue is midline. Oropharynx: no rash or ulcers. EYES: Pupils are equal, round and reactive to light accommodation. Eye muscles and extra-ocular movement intact. Sclera is anicteric. Neck; supple no lymphadenopathy, no thyromegaly or bruit Lungs: Normal respiratory rate/effort. Breath sounds bilateral slight reduced at bases Heart: Incr rate. s1s2 normal. No rub or gallop. Extremities: no edema. No varicose veins. left foot in dressing Neurological: Patient is alert, awake and oriented to person, place and time. No focal deficit. Strength bilateral appropriate and equal Skin: Warm and dry. Normal turgor. No rash. Palpitation: Normal elasticity for age Abdomen: Abdomen is soft. Bowel sounds +. There is no abdominal tenderness, no guarding/rigidity no organomegaly Psych: lack insight and has normal affect/mood MSK: no joint tenderness or swelling. Digits and nails normal, no deformity : kidney or bladder not palpable. Labs/imaging reviewed. Past medical history, past surgical history, family history, social history, allergy reviewed and noted as below Family hx: no hx of CKD. Rest non-contributory Phos 3.5 TSAT 13% Vit D 41 PTH 49 LDL 103 kappa/lambda 3.4 uric acid 7.5 renal cyst left side Objective - Vital Signs/Intake and Output Vital Signs (last 24 hours): Temp Pulse Resp BP Pulse Ox 98 F 102 H 18 106/66 98 12/02/18 06:00 12/02/18 06:02 12/02/18 06:00 12/02/18 06:02 12/02/18 06:00 - Medications Medications: Current Medications Acetaminophen (Tylenol 325mg Tab) 650 mg PO Q6H PRN PRN Reason: Pain, Mild (1-3) Acetaminophen (Tylenol 325mg Tab) 650 mg PO Q6 PRN PRN Reason: Fever >100.4 F Dextrose (Dextrose 50% Inj) 0 ml IV STAT PRN; Protocol PRN Reason: Hypoglycemia Protocol Docusate Sodium (Colace) 100 mg PO TID [facility] Last Admin: 12/02/18 10:34 Dose: 100 mg Heparin Sodium (Porcine) (Heparin) 5,000 units SC Q8 [facility]; Protocol Last Admin: 12/02/18 06:01 Dose: 5,000 units Dextrose (Dextrose 5% In Water 1000 Ml) 1,000 mls @ 0 mls/hr IV .Q0M PRN; Protocol PRN Reason: Hypoglycemia Protocol Meropenem/Sodium Chloride (Merrem Iv 500 Mg/Ns 50 Ml) 500 mg in 50 mls @ 100 mls/hr IVPB Q12 [facility]; Protocol Last Admin: 12/02/18 10:35 Dose: 100 mls/hr Insulin Human Lispro (Humalog Med) 0 units SC AC [facility]; Protocol Last Admin: 12/02/18 07:47 Dose: Not Given Insulin Human NPH (Humulin N) 20 units SC ACBD [facility] Last Admin: 12/02/18 07:52 Dose: 20 u Metoprolol Tartrate (Lopressor) 25 mg PO Q8H [facility] Last Admin: 12/02/18 06:02 Dose: 25 mg Midodrine (Proamatine) 2.5 mg PO TID [facility] Last Admin: 12/02/18 10:35 Dose: 2.5 mg Morphine Sulfate (Morphine) 2 mg IVP Q4H PRN PRN Reason: Pain, severe (8-10) Last Admin: 11/30/18 20:55 Dose: 2 mg Polyethylene Glycol (Miralax) 17 gm PO BID [facility] Last Admin: 12/02/18 10:35 Dose: 17 gm Sodium Hypochlorite (Dakins Solution 0.25%) 20 ml TOP DAILY [facility] Last Admin: 12/02/18 10:34 Dose: Not Given - Labs Labs: 12/02/18 07:10 12/02/18 07:10 PT 14.7 SECONDS (9.4-12.5) H 11/25/18 13:05 INR 1.30 11/25/18 13:05 APTT 26.3 Seconds (26.9-38.3) L 11/25/18 13:05
[2018-12-02] MEDS: Morphine 2 mg/ml ISec IVP PRN (11:45)
--- NOTE | 2018-12-02 11:46 | PN ---
DATE: 12/02/2018 SUBJECTIVE: The patient is in room 575, bed 2. Overnight nurse's notes were reviewed and this morning I spoke to the patient's nurse. Apparently till yesterday, the patient was on the schedule for surgery today but according to the morning as today, the surgery has been postponed for unknown reason.. The patient's overnight was found to be episodically confused and disoriented. PHYSICAL EXAMINATION: VITAL SIGNS: T-max 100.3, heart rate 68 to 102, blood pressure 106/66, 114/67, respirations 18, O2 sat 97%. HEENT: Head is normocephalic, atraumatic. HEENT examination shows pinkish pale conjunctivae. Anicteric sclerae. No oropharyngeal lesion. NECK: No neck rigidity. CHEST: Kyphosis. CARDIOPULMONARY: S1, S2, regular rhythm. Questionable soft systolic murmur at left sternal border, right second intercostal space, left second intercostal space. LUNGS: No audible crackle, rales or wheezing. ABDOMEN: Soft, positive bowel sound. No palpable hepatosplenomegaly. GENITALIA: Male. RECTAL: Deferred. EXTREMITY: Shows no pitting edema, no calf tenderness, no Homans' sign. Positive left foot dressing noted. MUSCULOSKELETAL: As per the body mass index. NEUROLOGIC: The patient is alert, awake, responsive, is able to say his name and place, but is not oriented to year, date, month and at times the patient also does not recall the place where he is. Neurologically, the patient is able to move upper and lower extremity without assistance. Gait examination is not tested. Cranial nerves II-XII are limited. DIAGNOSTICS: From 12/02/2018 is pending. IMPRESSION: 1. Acute osteomyelitis of the left foot great toe. 2. Episodic confusion, forgetfulness and disorientation, etiology unclear, questionable delirium versus encephalopathy. 3. Persistent leukocytosis. 4. 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 5. Status post left foot great toe amputation and fifth metatarsal left foot great toe amputation and metatarsal amputation. 6. 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 7. Uncontrolled diabetes mellitus with hypoglycemia. 8. Recurrent high-grade fever. 9. High-grade fever. 10. Tachycardia. 11. Hypotension. 12. History of dilated cardiomyopathy, etiology undetermined. 13. Normocytic anemia, status post packed red blood cell transfusion x3. 14. Persistent refractory leukocytosis with granulocytosis. 15. Uncontrolled diabetes mellitus with hyperglycemia and episodic hypoglycemia. 16. Left foot diabetic foot ulceration and left foot great toe acute osteomyelitis. 17. Severe peripheral vascular disease of the lower extremity. 18. Gait dysfunction. 19. Deconditioning. 20. Noncompliance. 21. History of hypertension, hyperuricemia and gout. 22. Possible monoclonal gammopathy of unknown significance with elevated kappa lambda ratio. 1. Left foot great toe acute osteomyelitis and gangrenous necrosis with gouty tophi with acute gangrenous necrosis and acute osteomyelitis. 2. High-grade fever. 3. Tachycardia. 4. Hypotension. 5. Proteus mirabilis, Pseudomonas aeruginosa and beta hemolytic streptococcus group B left foot great toe osteomyelitis, diabetic foot ulceration and cellulitis. 6. Severe peripheral vascular disease. 7. Refractory leukocytosis. 8. Granulocytosis. 9. Elevated erythrocyte sedimentation rate of 122. 10. Normocytic anemia. 11. Status post packed red blood cell transfusion x3. 12. Uncontrolled insulin-requiring diabetes mellitus with hyperglycemia and hemoglobin A1c of 8.6 and fructosamine of 329. 13. Gait dysfunction secondary to nonweightbearing status of the left foot and toe. 14. Deconditioning. 15. Questionable delirium. 16. Iron-deficiency. 17. Hypertriglyceridemia with decreased high-density lipoprotein. 18. Lactic acidosis. 19. Elevated C-reactive protein no greater than 15. 20. Acute kidney injury with underlying chronic kidney disease, stage 3/4. 21. Proteinuria. 22. Microscopic hematuria, pyuria, bacteriuria. 23. Questionable monoclonal gammopathy of unknown significance with elevated kappa to lambda ratio. 24. Status post left foot great toe amputation and second metatarsal amputation and removal of the third and fourth toe nail and wound debridement. 25. Hypertensive diabetic chronic kidney disease. 26. Severe mitral regurgitation with systolic congestive heart failure and cardiomyopathy with ejection fraction of 35%. 27. Monoclonal gammopathy of unknown significance. 28. Episodic confusion and disorientation. 29. Constipation. 30. Insulin-requiring diabetes mellitus. 31. Hypertension. 1. 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 2. Recurrent fever. 3. Tachycardia. 4. Hypertension. 5. Persistent refractory leukocytosis. 6. Normocytic anemia. 7. Status post packed red blood cell transfusion x3. 8. Reactive thrombocytosis. 9. Granulocytosis. 10. Acute kidney injury with chronic kidney disease stage 4. 11. Status post left foot left great toe amputation and metatarsal amputation. 12. Status post left foot second and third toe removal. 13. Left foot wound debridement. 14. Severe peripheral vascular disease. 15. Uncontrolled diabetes mellitus with hyperglycemia and elevated hemoglobin A1c. 16. Transitional confusional and disorientation state. 17. Possible delirium versus toxic metabolic encephalopathy. 18. Hypotension. 1. Pseudomonas aeruginosa, Proteus mirabilis and beta hemolytic group B Streptococcus, left foot diabetic ulceration and gangrene. 2. Status post status post left foot great toe amputation and metatarsal amputation. 3. Status post removal of the second and third toe nail. 4. Status post left foot wound debridement. 5. Severe peripheral vascular disease of the lower extremity with ankle-brachial indexes of less than 1. 6. History of chronic osteomyelitis of the left foot. 7. Normocytic anemia. 8. Refractory leukocytosis, slow resolving. 9. Reactive thrombocytosis. 10. Leukocytosis with granulocytosis. 11. Status post packed red blood cell transfusion x3. 12. Hypertensive and diabetic chronic kidney disease stage III. 13. Uncontrolled diabetes mellitus with hyperglycemia and elevated hemoglobin A1c. 14. Deconditioning. 15. Gait dysfunction. 16. Questionable delirium versus encephalopathy versus transient confusional and disorientation state. 17. History of hyperuricemia and gout. 18. History of poor compliance, noncompliance. 19. Tachycardia. 20. High-grade fever. 21. Transient hypotension. 22. Dilated cardiomyopathy with left ventricular ejection fraction of 35%. 23. Severe mitral and tricuspid regurgitation. 24. Severe peripheral vascular disease of the lower extremity. 1. Sepsis, secondary to left foot diabetic foot ulceration secondary to Proteus mirabilis, Pseudomonas aeruginosa, beta hemolytic group B strep. 2. High-grade fever. 3. Tachycardia. 4. Episodic hypotension. 5. Leukocytosis with granulocytosis. 6. Acute kidney injury with underlying chronic kidney disease stage 4. 7. Uncontrolled non-insulin requiring diabetes mellitus with hyperglycemia and elevated hemoglobin A1c and elevated fructosamine of 329. 8. Episodic disorientation and confusion, possible questionable delirium versus toxic metabolic encephalopathy. 9. Proteinuria, microscopic hematuria, bacteriuria. 10. Monoclonal gammopathy, of unknown significance. 11. Metabolic acidosis. 12. Hypertensive, diabetic, chronic kidney disease stage 3. 13. Severe mitral, tricuspid regurgitation with systolic congestive heart failure and cardiomyopathy with ejection fraction of 35%. 14. Left foot grade 2 amputation, second metatarsal amputation, and third and fourth toe toenail removal and wound debridement. 15. Cardiomyopathy. 16. Severe peripheral vascular disease of the lower extremity. 17. Persistent refractory leukocytosis. 18. Chronic microvascular ischemic disease of the brain and cerebral cortical atrophy of the brain. 19. Gait dysfunction. 20. Deconditioning. 21. Transient confusion state secondary to transient cerebral hypoperfusion and hyperglycemic fluctuations. 1. Status post left foot great toe amputation and second metatarsal amputation and third and fourth digit toenail removal and left foot wound debridement, postop day #1. 2. Chronic nonhealing left foot diabetic foot ulceration and possible gangrene. 3. Fever. 4. Tachycardia. 5. Hypotension. 6. Persistent refractory leukocytosis with granulocytosis. 7. Normocytic anemia, status post packed red blood cell transfusion x3. 8. Uncontrolled diabetes mellitus with hyperglycemia and elevated hemoglobin A1c of 8.6. 9. Hyper fructosemia. 10. Lactic acidosis. 11. Hyperuricemia. 12. Possible iron-deficiency. 13. Elevated C-reactive protein of greater than 15. 14. Hypertriglyceridemia. 15. Proteinuria. 16. Microscopic hematuria. 17. Bacteriuria. 18. Elevated total kappa lambda ratio. 19. Pseudomonas aeruginosa and beta hemolytic strep group B left foot diabetic foot ulceration. 20. Status post packed red blood cell transfusion x3. 21. Left foot cellulitis. 22. Chronic microvascular ischemic disease of the brain and cerebral cortical atrophy of the brain. 23. Sepsis with Pseudomonas aeruginosa and group B Streptococcus beta hemolytic Streptococcus left foot diabetic foot ulcerations and cellulitis. 24. Kidney injury with underlying chronic kidney disease. 25. Hypertensive diabetic chronic kidney disease. 26. Stage III chronic kidney disease secondary to hypertension and vasculopathy. 27. Anemia. 28. Monoclonal gammopathy of unknown significance. 29. Transient and episodic confusion and disorientation, probably secondary to transient cerebral hypoperfusion and uncontrolled diabetes mellitus. 30. Sepsis. 1. Group B Streptococcus and Pseudomonas aeruginosa, left foot diabetic foot ulceration and gangrene and cellulitis. 2. History of chronic osteomyelitis of the left foot. 3. High-grade fever. 4. Questionable sepsis versus systemic inflammatory response syndrome. 5. Tachycardia. 6 Hypotension. 7. Questionable and possible encephalopathy versus toxic metabolic encephalopathy with episodic confusion and disorientation. 8. Type 2 diabetes mellitus. 9. Anemia of chronic disease. 10. Status post packed red blood cell transfusion x2. 11. Gait dysfunction. 12. Deconditioning. 13. Status post left foot big toe amputation,2nd metatarsal amputation, wound debridement and 3rd and 4th toe nail removal. 14. Persistent refractory leukocytosis with granulocytosis 15. Normocytic anemia. 16. Uncontrolled type 2 diabetes mellitus with hyperglycemia. 17. Microvascular ischemic disease of the brain. 18. Cerebral cortical atrophy of the brain. 19. Gait dysfunction with nonweightbearing status of the left foot. 20. Severe peripheral vascular disease of the lower extremity with severe bilateral tibial and distal lower extremities severe occlusive disease with ankle-brachial index is of less than 1. 21. History of hypertension. 22. History of gout and hyperuricemia. 23. History of gouty arthritis. 24. Dilated cardiomyopathy with ejection fraction of 35% with severe mitral and tricuspid regurgitation. 25. Acute kidney injury with underlying chronic kidney disease stage III. 26. Proteinuria and microscopic hematuria. 1. High-grade fever and new fever. 2. Tachycardia. 3. Hypotension. 4. Questionable sepsis versus systemic inflammatory response syndrome with high-grade fever, tachycardia, hypotension. 5. Persistent refractory leukocytosis with granulocytosis. 6. Normocytic anemia. 7. Status post packed red blood cell transfusion x2. 8. Uncontrolled type 2 noninsulin-requiring diabetes mellitus with hyperglycemia. 9. Left foot Pseudomonas aeruginosa, group B Streptococcus with beta-hemolytic left foot, and left foot diabetic ulceration and possible diabetic left foot gangrene. 10. Proteinuria. 11. Microscopic hematuria. 12. Bacteriuria. 13. Left foot group B streptococcal beta-hemolytic and Pseudomonas aeruginosa left foot diabetic foot ulceration. 14. Episodic disorientation and confusion, etiology undetermined. 15. Questionable toxic metabolic encephalopathy. 16. Hyperglycemia secondary to uncontrolled diabetes mellitus. 17. Status post packed red blood cell transfusion x2. 18. Persistent refractory leukocytosis. 19. Left foot diabetic ulceration and diabetic cellulitis. 20. Dilated cardiomyopathy. 21. History of poor compliance and noncompliance. 22. History of hyperuricemia and gout. 23. 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 24. Gait dysfunction. 25. Deconditioning. 1. Left foot diabetic ulceration and nonhealing diabetic ulceration with possible diabetic gangrene of the left foot and great toe and the left foot toes with group B Streptococcus and Pseudomonas aeruginosa, cellulitis and diabetic foot gangrene of the left foot. 2. Uncontrolled diabetes mellitus with elevated hemoglobin A1c. 3. Fever. 4. Questionable sepsis. 5. Tachycardia. 6. Possible sepsis versus systemic inflammatory response syndrome. 7. Fever. 8. Transient hypotension. 9. Dilated cardiomyopathy. 10. Persistent refractory leukocytosis. 11. Normocytic anemia status post packed red blood cell transfusion. 12. Granulocytosis. 13. Acute kidney injury with underlying chronic kidney disease, stage IV. 14. Uncontrolled diabetes mellitus with hyperglycemia and an elevated hemoglobin A1c and hyperfructosemia. 15. History of poor compliance and noncompliance. 16. History of hyperuricemia and gout. 17. Severe peripheral vascular disease. 18. History of severe peripheral vascular disease of the lower extremity. 19. Severe mitral and tricuspid regurgitation. 20. Cardiomyopathy with ejection fraction of around 35%. 21. History of poor compliance. 22. History of chronic osteomyelitis of the left foot and partial amputation of the left foot second toe. 1. Fever. 2. Sinus tachycardia. 3. Pseudomonas nose group. Group B streptococcus group B beta hemolytic left foot diabetic foot ulcerations and cellulitis and gangrene. 4. Severe peripheral vascular disease. 5. Persistent refractory leukocytosis with granulocytosis. 6. Anemia with decreasing hemoglobin/hematocrit. 7. Elevated erythrocyte sedimentation rate of 122. 8. Chronic kidney disease, stage 3. 9. Hyperglycemia secondary to uncontrolled diabetes mellitus with hemoglobin A1c of 8.6 and hyper fructose anemia. 10. Transaminitis. 11. Iron-deficiency anemia. 12. Hypertriglyceridemia. 13. Elevated C-reactive protein of greater than 15. 14. Lactic acidosis. 15. Status post packed red blood cell transfusions x2. 16. Left foot erosive changes. 17. Severe peripheral vascular disease of bilateral popliteal trifurcation and tibial disease with normal resting ankle-brachial indices. 18. Chronic osteomyelitis of the left foot with bony destruction and sclerosis around the first metatarsophalangeal joint and partial amputation of the second proximal phalanx. 19. Severe degenerative joint disease of the left midfoot. 20. Left axis deviation. 21. Acute kidney injury with underlying chronic kidney disease. 22. Metabolic acidosis. 23. Hypertensive diabetic chronic kidney disease stage 3 without proteinuria. 24. Monoclonal gammopathy of unknown significance. 25. Severe mitral, tricuspid regurgitation with cardiomyopathy, left ventricular ejection fraction of 35% to 40%. 26. Left foot diabetic foot ulceration and gangrene. 27. Congestive heart failure with reduced ejection fraction. 28. Nonhealing left foot diabetic ulceration. 29. Sepsis with left foot cellulitis and diabetic foot ulceration with Pseudomonas secondary to Pseudomonas aeruginosa and Streptococcus group B beta hemolytic Streptococcus. 30. Questionable and possible delirium versus encephalopathy. 31. Gait dysfunction. 32. Deconditioning. 33. Constipation. 34. Hypovitaminosis D. 35. Prostatic hypertrophy. 36. Hyperlipidemia. 37. Hyperuricemia. 38. Hyperglycemia. 39. Uncontrolled diabetes mellitus with hyperglycemia. 40. Gait dysfunction. 41. History of poor compliance and noncompliance. 1. Left foot Pseudomonas aeruginosa and group B beta hemolytic strep, left foot diabetic foot ulceration and cellulitis. 2. Sepsis secondary to Pseudomonas aeruginosa and group B beta hemolytic strep, left diabetic foot ulceration and cellulitis. 3. Hypertension. 4. Tachycardia. 5. Anemia. 6. Status post packed red blood cell transfusion one unit. 7. Leukocytosis with granulocytosis. 8. Elevated erythrocyte sedimentation rate of 122. 9. Iron-deficiency. 10. Acute kidney injury with underlying chronic kidney disease, stage IV. 11. Uncontrolled diabetes mellitus with hyperglycemia and elevated hemoglobin A1c of 8.6 and elevated fructose, a mean of 329. 12. Transient lactic acidosis. 13. Transaminitis. 14. Hypertriglyceridemia. 15. Elevated C-reactive protein of greater than 15. 16. Gait dysfunction. 17. Deconditioning. 18. Metabolic acidosis. 19. 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 20. Severe mitral, tricuspid regurgitation and systolic congestive heart failure. 21. Left foot cellulitis and left foot diabetic ulceration. 22. Left diabetic foot ulceration and possible gangrene or pre-gangrenous condition of the left foot toes. 23. Left foot second digit amputation. 24. Peripheral vascular disease. 25. Left foot second toe amputation with cyanosis and mummification of the toes and forefoot of the left foot. 26. Severe tibial disease of the lower extremity. 27. Peripheral vascular disease. 28. Anemia of chronic disease. 29. Bilateral popliteal trifurcation and tibial disease. 30. Left anterior hemiblock. 1. Left foot Pseudomonas aeruginosa and group B Streptococcus beta hemolytic left foot cellulitis and diabetic foot ulcer. 2. Severe peripheral vascular disease of the lower extremity. 3. Normocytic anemia with decreasing hemoglobin. 4. Leukocytosis with granulocytosis. 5. Uncontrolled diabetes mellitus with hyperglycemia. 6. Acute kidney injury with underlying chronic kidney disease stage III/IV. 7. Transaminitis. 8. Probably anemia of chronic kidney disease. 9. Acute kidney injury with underlying chronic kidney disease. 10. Metabolic acidosis. 11. Hypertensive diabetic chronic kidney disease. 12. [id number] mitral regurgitation and [id number] tricuspid regurgitation. 13. Dilated cardiomyopathy with ejection fraction of 35%. 14. Sepsis. 15. Hypertension. 16. Gait dysfunction. 17. Deconditioning. 18. Bilateral lower extremity peripheral vascular disease. 19. History of poor compliance and noncompliance. 20. History of hyperuricemia and gout. 1. Left foot cellulitis versus gangrene versus pregangrenous state. 2. Sepsis. 3. Tachycardia. 4. Transient episodic hypotension. 5. Leukocytosis with granulocytosis 6. Elevated erythrocyte sedimentation rate of 122. 7. Normocytic anemia. 8. Chronic kidney disease stage 4 with acute kidney injury. 9. Uncontrolled noninsulin-requiring diabetes mellitus with hyperglycemia and hemoglobin A1c of 8.6. 10. Possible iron-deficiency. 11. Hypertriglyceridemia. 12. Elevated C-reactive protein of greater than 15. 13. Transient lactic acidosis. 14. Transaminitis. 15. Deconditioning. 16. Gait dysfunction. 17. Anemia with decreasing hemoglobin and hematocrit. 18. Metabolic acidosis. 19. Diabetic hypertensive chronic kidney disease. 20. Chronic kidney disease stage 3 without proteinuria. 21. Severe mitral and tricuspid regurgitation. 22. Systolic congestive heart failure. 23. Dilated ischemic cardiomyopathy, etiology undetermined. 1. Left foot cellulitis with diabetic foot disease and possible abscess versus possible osteomyelitis. 2. History of left foot second toe amputation. 3. Hypertension. 4. Tachycardia. 5. Fever. 6. Poor compliance and noncompliance. 7. Leukocytosis with granulocytosis. 8. Normocytic anemia. 9. Elevated erythrocyte sedimentation rate of 122. 10. Chronic kidney disease, stage IV with acute kidney injury. 11. Transient lactic acidosis. 12. History of hyperuricemia. 13. Hypertriglyceridemia. 14. Aortic calcification. 15. Bilateral lower extremity popliteal trifurcation and tibial peripheral vascular disease. 16. Left foot first metatarsophalangeal joint bony destruction and sclerosis, chronic osteomyelitis. 17. 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 18. 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 19. Sinus tachycardia with left anterior hemiblock. 20. Deconditioning. 21. History of poor compliance. 22. Chronic dilated ischemic cardiomyopathy with ejection fraction of . 23. History of hypertension. 24. History of heart failure with reduced ejection fraction of 35%. 25. Pulmonary hypertension with right ventricular systolic pressure of 40 mmHg. 26. Left ventricular global hypokinesis and moderately impaired left ventricular systolic function. 27. Mild aortic regurgitation. 28. Moderate to severe mitral regurgitation. 29. Moderate tricuspid regurgitation. 30. History of constipation. 31. Hypovitaminosis D. 32. History of iron-deficiency anemia. 33. Prostatic hypertrophy. 34. Insulin-requiring diabetes mellitus. 35. Hyperlipidemia. 36. History of peripheral vascular disease. 37. Hyperuricemia. 1. Left foot diabetic foot ulceration versus left foot abscess versus left foot toe osteomyelitis. 2. Tachycardia. 3. Leukocytosis with granulocytosis. 4. Questionable systemic inflammatory response syndrome. 5. Uncontrolled diabetes mellitus with hyperglycemia. 6. Chronic kidney disease stage IV. 7. Mild transaminitis. 8. History of hypertension. 9. Hyperlipidemia. 10. History of prostatic hypertrophy. 11. History of iron-deficiency anemia. 12. History of hypovitaminosis D. 13. History of dilated cardiomyopathy. 14. History of pulmonary hypertension. 15. History of moderate tricuspid regurgitation and mitral regurgitation. 16. Hyperuricemia. PLAN: At this time, the patient will be continued on all the therapeutic intervention as per the MAR dinner to control hypoglycemia. In addition, the patient will be continued on all the therapeutic intervention as per the MAR of today. We are awaiting further recommendation by Vascular Surgery and Infectious Disease regarding the patient's surgical plan which the patient was scheduled for today for left foot transmetatarsal amputation.. At present, the patient will be continued on IV antibiotics as per Infectious Disease. The patient will be continued on all the therapeutic intervention as per the MAR of today. The patient's further management will be dependent upon the patient's clinical condition, hemodynamic status and as per the patient response to therapeutic intervention, as per recommendation by all the physicians involved in the care of the patient. The patient's diagnostic data and the labs are still pending which will be reviewed when available. Dictated and electronically signed, not read. Niranjan MD [facility] # [id number] KESHAWN
--- NOTE | 2018-12-02 22:06 | PN ---
DATE: 12/02/2018 SUBJECTIVE: The patient is seen in bed, in no acute distress, and nontoxic. OBJECTIVE: VITAL SIGNS: Temperature is 99, blood pressure is 120/60, and respiratory rate of 18. HEENT: Unremarkable. NECK: Supple. LUNGS: Have . HEART: Normal S1 and S2. ABDOMEN: Soft. LABORATORY EXAMINATION: Reveals a white count is down to 11,800 and hemoglobin of 10. Chemistries are noted with a creatinine of 1.8 and microbiology is reviewed. Dr. Ling's note is reviewed. ASSESSMENT AND PLAN: This is a 73-year-old male who was seen earlier today and status post left helix second metatarsal amputation postoperative day #9, chronic foot ulcer, had Pseudomonas and group B Streptococcus, gouty tophus, and the patient for possible OR. The patient's surgery was postponed reason which is not clear, currently on meropenem. We will follow closely with you. Tai Landaverde MD
--- NOTE | 2018-12-03 06:52 | CP.PCM.PN ---
<Sylwia Chambers - Last Filed: 12/03/18 13:57> Subjective - Date & Time of Evaluation Date of Evaluation: 12/03/18 Time of Evaluation: 06:44 - Subjective Subjective: Sylwia Chambers DO, PGY-2: Progress Note for Dr. Ling Patient was seen and examined at bedside. He didn't sleep overnight. He was taking his clothes off. He was able to answer questions approprtiately. 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 He was urinating into the cup when I walked into the room this morning. The urine cup was non-bloody. I spoke with the healthcare aid, who happens to speak [place], who informed me that Mr. Mary did use the commode to move his bowels. She also informed me about him taking off his clothes and his off-loading boots. The patient denied fever, chills, or pain in the left foot except when weight- bearing on it. Patient reports not eating his meals except for supper and eating the multigrain crackers by the bedside. Overnight nurse endorsed no events aside from informing that the Metoprolol needed to be renewed. I spoke with the surgical team as well. Plan is to continue dressing changes and plan for TMA (tentatively) for next week. Chart review indicates patient's blood sugar have been running low. We will adjust his insulin accordingly. Objective - Vital Signs/Intake and Output Vital Signs (last 24 hours): Temp Pulse Resp BP Pulse Ox 98.9 F 90 20 110/70 100 12/02/18 22:46 12/03/18 06:01 12/02/18 22:46 12/03/18 06:01 12/02/18 22:46 Intake and Output: 12/02/18 12/03/18 18:59 06:59 Intake Total 480 1080 Output Total 700 1300 Balance -220 -220 - Medications Medications: Current Medications Acetaminophen (Tylenol 325mg Tab) 650 mg PO Q6H PRN PRN Reason: Pain, Mild (1-3) Last Admin: 12/02/18 22:24 Dose: 650 mg Acetaminophen (Tylenol 325mg Tab) 650 mg PO Q6 PRN PRN Reason: Fever >100.4 F Dextrose (Dextrose 50% Inj) 0 ml IV STAT PRN; Protocol PRN Reason: Hypoglycemia Protocol Docusate Sodium (Colace) 100 mg PO TID [facility] Last Admin: 12/02/18 18:44 Dose: 100 mg Heparin Sodium (Porcine) (Heparin) 5,000 units SC Q8 [facility]; Protocol Last Admin: 12/03/18 06:02 Dose: 5,000 units Dextrose (Dextrose 5% In Water 1000 Ml) 1,000 mls @ 0 mls/hr IV .Q0M PRN; Protocol PRN Reason: Hypoglycemia Protocol Meropenem/Sodium Chloride (Merrem Iv 500 Mg/Ns 50 Ml) 500 mg in 50 mls @ 100 mls/hr IVPB Q12 [facility]; Protocol Last Admin: 12/02/18 21:43 Dose: 100 mls/hr Insulin Human Lispro (Humalog Med) 0 units SC AC [facility]; Protocol Last Admin: 12/02/18 18:03 Dose: Not Given Insulin Human NPH (Humulin N) 20 units SC ACBD [facility] Last Admin: 12/02/18 18:04 Dose: Not Given Metoprolol Tartrate (Lopressor) 25 mg PO Q8H [facility] Last Admin: 12/03/18 06:01 Dose: 25 mg Midodrine (Proamatine) 2.5 mg PO TID [facility] Last Admin: 12/02/18 18:09 Dose: 2.5 mg Morphine Sulfate (Morphine) 2 mg IVP Q4H PRN PRN Reason: Pain, severe (8-10) Last Admin: 12/02/18 11:45 Dose: 2 mg Polyethylene Glycol (Miralax) 17 gm PO BID [facility] Last Admin: 12/02/18 18:09 Dose: 17 gm Sodium Hypochlorite (Dakins Solution 0.25%) 20 ml TOP DAILY [facility] Last Admin: 12/02/18 10:34 Dose: Not Given - Labs Labs: 12/02/18 07:10 12/02/18 07:10 PT 14.7 SECONDS (9.4-12.5) H 11/25/18 13:05 INR 1.30 11/25/18 13:05 APTT 26.3 Seconds (26.9-38.3) L 11/25/18 13:05 - Constitutional Appears: Unkempt, Chronically Ill - Head Exam Head Exam: ATRAUMATIC, NORMOCEPHALIC - Eye Exam Eye Exam: EOMI, Normal appearance - ENT Exam ENT Exam: Mucous Membranes Moist - Neck Exam Neck Exam: Normal Inspection - Respiratory Exam Respiratory Exam: NORMAL BREATHING PATTERN. absent: Accessory Muscle Use - Cardiovascular Exam Cardiovascular Exam: RRR, +S1, +S2 - GI/Abdominal Exam GI & Abdominal Exam: Soft, Normal Bowel Sounds Assessment and Plan - Assessment and Plan (Free Text) Assessment: 73 year old male with a past medical history of atrial fibrillation, gout, BPH, and DM II who presented to [facility] for a chronic non-healing left foot ulcer. 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 - Surgery is following, OR tentatively next week - Cilostazol 50 mg BID - Meropenem 500 q12h - Morphine 2 mg q4h PRN for severe pain - ID is following 2) Atrial fibrillation - Metoprolol 25 mg q8h [facility] 3) Hypotension - Midodrine 2.5 mg TID 4) DM II - NPH 25 units ACBD - ISS Lispro (medium) 5) EMIL on CKD - Gentle NS - Nephrology is following - Nephrovite 1 tab 0800 6) Gout - Allopurinol 100 mg daily 7) BPH - Flomax 0.4 mg 8) CAD - Aspirin 81 mg - Atorvastatin 20 mg DIN 9) Constipation - Docusate 100 mg TID 10) GI/DVT prophylaxis - Protonix 40 mg - Heparin 5,000 units q8 11) Persistent Leukocytosis, unknown - Flow cytometry, plasma - Alkaline phosphatase isoenzymes - reticulocyte count ordered Case was reviewed and discussed with attending physician, Dr. Ling <Niranjan Ling - Last Filed: 12/13/18 14:26> Objective - Vital Signs/Intake and Output Vital Signs (last 24 hours): Temp Pulse Resp BP Pulse Ox 98.3 F 94 H 17 93/57 L 99 12/12/18 14:00 12/12/18 14:00 12/12/18 14:00 12/12/18 14:00 12/12/18 14:00 - Medications Medications: Current Medications Acetaminophen (Tylenol 325mg Tab) 650 mg PO Q6 PRN PRN Reason: TEMP>=99.5F Last Admin: 12/12/18 22:42 Dose: 650 mg Acetaminophen (Tylenol 650 Mg Supp) 650 mg RC Q6H PRN PRN Reason: TEMP>=99.5F Dextrose (Dextrose 50% Inj) 0 ml IV STAT PRN; Protocol PRN Reason: Hypoglycemia Protocol Docusate Sodium (Colace) 100 mg PO TID [facility] Last Admin: 12/13/18 10:27 Dose: 100 mg Ferrous Gluconate (Fergon) 324 mg PO TID [facility] Last Admin: 12/13/18 10:28 Dose: 324 mg Heparin Sodium (Porcine) (Heparin) 5,000 units SC Q8 [facility]; Protocol Last Admin: 12/13/18 05:03 Dose: 5,000 units Dextrose (Dextrose 5% In Water 1000 Ml) 1,000 mls @ 0 mls/hr IV .Q0M PRN; Protocol PRN Reason: Hypoglycemia Protocol Insulin Human Lispro (Humalog Med) 0 units SC AC [facility]; Protocol Last Admin: 12/13/18 12:48 Dose: 5 units Insulin Human NPH (Humulin N) 17 units SC ACBD [facility] Last Admin: 12/13/18 10:28 Dose: 17 unit Metoclopramide HCl (Reglan) 10 mg IV ONCE PRN PRN Reason: Nausea/Vomiting Midodrine (Proamatine) 10 mg PO TID [facility] Last Admin: 12/13/18 10:28 Dose: 10 mg Nystatin (Nystop Topical Powder) 0 gm TOP BID [facility] Last Admin: 12/13/18 10:31 Dose: 1 appl Ondansetron HCl (Zofran Inj) 4 mg IVP Q4H PRN PRN Reason: Nausea/Vomiting Pantoprazole Sodium (Protonix Ec Tab) 40 mg PO 0600 [facility] Last Admin: 12/13/18 05:03 Dose: 40 mg Polyethylene Glycol (Miralax) 17 gm PO BID [facility] Last Admin: 12/13/18 10:28 Dose: 17 gm Tamsulosin HCl (Flomax) 0.4 mg PO DAILY [facility] Last Admin: 12/13/18 10:28 Dose: 0.4 mg Vitamin B Complex/Vit C/Folic Acid (Nephro-Sumit) 1 tab PO 0800 [facility] Last Admin: 12/13/18 10:28 Dose: 1 tab - Labs Labs: 12/13/18 07:00 12/13/18 07:00 PT 12.6 SECONDS (9.4-12.5) H 12/10/18 13:10 INR 1.12 12/10/18 13:10 APTT 30.3 Seconds (26.9-38.3) 12/10/18 13:10 Attending/Attestation - Attestation I have personally seen and examined this patient.: Yes I have fully participated in the care of the patient.: Yes I have reviewed all pertinent clinical information, including history, physical exam and plan: Yes Notes (Text): Please see/read my dictated notes.
[2018-12-03 07:53] LABS: BASO # 0.02 K/mm3 (0.0-2.0); BASO % 0.2 % (0.0-3.0); EOS # 0.4 (0.0-0.7); HEMOGLOBIN 10.7 g/dL (14.0-18.0); LYMPH # 1.3 (1.2-3.4); LYMPH % 12.5 % (22.0-35.0); MEAN CELL VOLUME 94.3 fl (80.0-105.0); MEAN CORPUSCULAR HEMOGLOBIN 30.6 pg (25.0-35.0); MEAN CORPUSCULAR HGB CONC 32.4 g/dl (31.0-37.0); MEAN PLATELET VOLUME 9.2 fl (7.0-11.0); MONO # 0.9 (0.1-0.6); MONO % 9.3 % (1.0-6.0); RBC 3.5 10^6/uL (3.5-6.1); RED CELL DISTRIBUTION WIDTH 16.1 % (11.5-14.5); WHITE BLOOD COUNT 10.1 10^3/uL (4.5-11.0)
--- NOTE | 2018-12-03 07:53 | CP.PCM.PN ---
<Marco AMalinda - Last Filed: 12/03/18 10:02> Subjective - Date & Time of Evaluation Date of Evaluation: 12/03/18 Time of Evaluation: 07:50 - Subjective Subjective: General Surgery Dr. 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 No acute events overnight. pt has no complaints this AM. tolerating diet. pain controlled w/ PO tylenol. Objective - Vital Signs/Intake and Output Vital Signs (last 24 hours): Temp Pulse Resp BP Pulse Ox 98.9 F 90 20 110/70 100 12/02/18 22:46 12/03/18 06:01 12/02/18 22:46 12/03/18 06:01 12/02/18 22:46 Intake and Output: 12/03/18 12/03/18 06:59 18:59 Intake Total 1080 Output Total 1300 Balance -220 - Medications Medications: Current Medications Acetaminophen (Tylenol 325mg Tab) 650 mg PO Q6H PRN PRN Reason: Pain, Mild (1-3) Last Admin: 12/02/18 22:24 Dose: 650 mg Acetaminophen (Tylenol 325mg Tab) 650 mg PO Q6 PRN PRN Reason: Fever >100.4 F Dextrose (Dextrose 50% Inj) 0 ml IV STAT PRN; Protocol PRN Reason: Hypoglycemia Protocol Docusate Sodium (Colace) 100 mg PO TID [facility] Last Admin: 12/02/18 18:44 Dose: 100 mg Heparin Sodium (Porcine) (Heparin) 5,000 units SC Q8 [facility]; Protocol Last Admin: 12/03/18 06:02 Dose: 5,000 units Dextrose (Dextrose 5% In Water 1000 Ml) 1,000 mls @ 0 mls/hr IV .Q0M PRN; P rotocol PRN Reason: Hypoglycemia Protocol Meropenem/Sodium Chloride (Merrem Iv 500 Mg/Ns 50 Ml) 500 mg in 50 mls @ 100 mls/hr IVPB Q12 [facility]; Protocol Last Admin: 12/02/18 21:43 Dose: 100 mls/hr Insulin Human Lispro (Humalog Med) 0 units SC AC [facility]; Protocol Last Admin: 12/02/18 18:03 Dose: Not Given Insulin Human NPH (Humulin N) 20 units SC ACBD [facility] Last Admin: 12/02/18 18:04 Dose: Not Given Midodrine (Proamatine) 2.5 mg PO TID [facility] Last Admin: 12/02/18 18:09 Dose: 2.5 mg Morphine Sulfate (Morphine) 2 mg IVP Q4H PRN PRN Reason: Pain, severe (8-10) Last Admin: 12/02/18 11:45 Dose: 2 mg Polyethylene Glycol (Miralax) 17 gm PO BID [facility] Last Admin: 12/02/18 18:09 Dose: 17 gm Sodium Hypochlorite (Dakins Solution 0.25%) 20 ml TOP DAILY [facility] Last Admin: 12/02/18 10:34 Dose: Not Given - Labs Labs: 12/02/18 07:10 12/02/18 07:10 PT 14.7 SECONDS (9.4-12.5) H 11/25/18 13:05 INR 1.30 11/25/18 13:05 APTT 26.3 Seconds (26.9-38.3) L 11/25/18 13:05 - Constitutional Appears: Non-toxic, No Acute Distress - Head Exam Head Exam: NORMAL INSPECTION - Eye Exam Eye Exam: Normal appearance - ENT Exam ENT Exam: Mucous Membranes Moist - Respiratory Exam Respiratory Exam: NORMAL BREATHING PATTERN. absent: Accessory Muscle Use, Respiratory Distress - Cardiovascular Exam Cardiovascular Exam: absent: Bradycardia, Tachycardia - GI/Abdominal Exam GI & Abdominal Exam: Soft. absent: Distended, Tenderness - Extremities Exam Additional comments: L foot dressing minimally stained at distal aspect. - Neurological Exam Neurological Exam: Alert, Awake - Psychiatric Exam Psychiatric exam: Normal Affect, Normal Mood - Skin Skin Exam: Dry, Warm Assessment and Plan - Assessment and Plan (Free Text) Assessment: 73 y/o M POD#9 s/p L great toe and 2nd metatarsal amputation 2/2 for chronic left foot non-healing wound Plan: - cont wet to dry dressing w/ Dakin's solution - encourage use of heel protectors - cont Abx per ID - cont pain management - PT/OT for ROM/deconditioning - recommend transfer to TCU for continued wound care and PT/OT - planning for definitive TMA vs BKA tentatively next week Pt discussed w/ Dr. Ian Strickland PGY3 <Kain Sosa - Last Filed: 12/09/18 19:28> Objective - Vital Signs/Intake and Output Vital Signs (last 24 hours): Temp Pulse Resp BP Pulse Ox 98.4 F 94 H 20 97/62 L 100 12/09/18 13:44 12/09/18 13:44 12/09/18 13:44 12/09/18 13:44 12/09/18 13:44 Intake and Output: 12/09/18 12/10/18 18:59 06:59 Intake Total 480 Output Total 300 Balance 180 - Medications Medications: Current Medications Acetaminophen (Tylenol 325mg Tab) 650 mg PO Q6H PRN PRN Reason: Pain, Mild (1-3) Last Admin: 12/08/18 09:31 Dose: 650 mg Acetaminophen (Tylenol 325mg Tab) 650 mg PO Q6 PRN PRN Reason: Fever >100.4 F Dextrose (Dextrose 50% Inj) 0 ml IV STAT PRN; Protocol PRN Reason: Hypoglycemia Protocol Dextrose (Dextrose 50% Inj) 0 ml IV STAT PRN; Protocol PRN Reason: Hypoglycemia Protocol Docusate Sodium (Colace) 100 mg PO TID [facility] Last Admin: 12/09/18 18:14 Dose: 100 mg Famotidine (Pepcid) 20 mg PO 1000,2200 [facility] Stop: 12/11/18 10:01 Last Admin: 12/09/18 10:50 Dose: 20 mg Ferrous Gluconate (Fergon) 324 mg PO TID [facility] Last Admin: 12/09/18 18:14 Dose: 324 mg Heparin Sodium (Porcine) (Heparin) 5,000 units SC Q8 [facility]; Protocol Last Admin: 12/09/18 15:31 Dose: 5,000 units Dextrose (Dextrose 5% In Water 1000 Ml) 1,000 mls @ 0 mls/hr IV .Q0M PRN; Protocol PRN Reason: Hypoglycemia Protocol Meropenem/Sodium Chloride (Merrem Iv 500 Mg/Ns 50 Ml) 500 mg in 50 mls @ 100 mls/hr IVPB Q12 [facility]; Protocol Last Admin: 12/09/18 10:51 Dose: 100 mls/hr Dextrose (Dextrose 5% In Water 1000 Ml) 1,000 mls @ 0 mls/hr IV .Q0M PRN; Protocol PRN Reason: Hypoglycemia Protocol Insulin Human Lispro (Humalog Med) 0 units SC AC [facility]; Protocol Last Admin: 12/09/18 17:00 Dose: 1 units Insulin Human NPH (Humulin N) 17 units SC ACBD [facility] Last Admin: 12/09/18 17:03 Dose: 17 unit Midodrine (Proamatine) 5 mg PO TID [facility] Last Admin: 12/09/18 18:14 Dose: 5 mg Nystatin (Nystop Topical Powder) 0 gm TOP BID [facility] Last Admin: 12/09/18 18:17 Dose: 1 appl Ondansetron HCl (Zofran Inj) 4 mg IVP Q4H PRN PRN Reason: Nausea/Vomiting Pantoprazole Sodium (Protonix Ec Tab) 40 mg PO 0600 [facility] Last Admin: 12/09/18 05:37 Dose: 40 mg Polyethylene Glycol (Miralax) 17 gm PO BID [facility] Last Admin: 12/09/18 18:16 Dose: Not Given Sodium Hypochlorite (Dakins Solution 0.25%) 20 ml TOP DAILY [facility] Last Admin: 12/09/18 10:47 Dose: 1 applic Tamsulosin HCl (Flomax) 0.4 mg PO DAILY [facility] Last Admin: 12/09/18 10:49 Dose: 0.4 mg Vitamin B Complex/Vit C/Folic Acid (Nephro-Sumit) 1 tab PO 0800 [facility] Last Admin: 12/09/18 08:17 Dose: 1 tab - Labs Labs: 12/09/18 07:30 12/09/18 07:30 PT 14.7 SECONDS (9.4-12.5) H 11/25/18 13:05 INR 1.30 11/25/18 13:05 APTT 26.3 Seconds (26.9-38.3) L 11/25/18 13:05 Assessment and Plan - Assessment and Plan (Free Text) Plan: Patient was seen, evaluated and examined by me at the bedside. I agree with assessment and plan as stated in the resident's note.
[2018-12-03 08:29] LABS: ALB/GLOB RATIO 0.9 (1.1-1.8); ALBUMIN 3.5 g/dL (3.0-4.8); BILIRUBIN,DIRECT 0.3 mg/dL (0.0-0.4)
[2018-12-03] MEDS: Insulin Lispro (humaLOG) MEDIUM Coverage SC SCH ×3 (09:50→17:25)
[2018-12-03] MEDS: POLYETHYLENE GLYCOL 3350 17 GM/Dose PACKET PO SCH ×2 (09:51→17:45)
[2018-12-03] MEDS: Insulin Human NPH 1 UNITS/0.01 ML SC SCH ×2 (09:51→17:44)
[2018-12-03] MEDS: Dakin's Topical 0.25%-Half Strength (480 ml) TOP SCH (09:53)
--- NOTE | 2018-12-03 13:12 | CP.PCM.PN ---
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 stable renal fxn Hypertension control with meds as ordered. Maintain hemodynamics stable. Avoid hypotension. Patient not on ACEI/ARB due to EMIL and hyperkalemia tendency. consider to add once stable. Monitor Input/Output, daily weights and renal function with basic metabolic panel continue with iron and MVI. PRBC as needed. dose of aransep 40 mcg weekly held as Hb 11.2. K/L ratio remains high at 3.6. pending hematology eval vit d can be changed to once a month as last level 41 continue with flomax d/c IVF. can give further as needed plan for TMA as per podiatry/surgery Dose meds/antibiotics for reduced GFR. Avoid fleets enema/magnesium based laxatives. Avoid nephrotoxins/NSAIDs/ iodinated contrast (unless needed emergently) Glycemic control Further work up/management as per primary team Thanks for allowing me to participate in care of your patient. Will follow patient with you. Please call if any Qs. had d/w team and son Dr Anjum Padron Office: [phone] Chief Complaint; Foot ulcer Reason for consult: Acute Kidney Injury HPI: Pt is a 73 M with hx of diabetes Mellitus (30 years), hypertension (years) PVD, Gout CKD 3 with baseline cr 1.8-1.9 presented with complaints of foot ulcer, being managed for cellulitis. seen for EMIL and pt also with PVD Denies OTC/herbal meds or NSAIDs. No recent iodinated contrast exposure. Noted obvious episodes of low BP. pt still not aware about kidney disease in past ROS: noted overnight events Cardiovascular: No chest pain. Pulmonary: No shortness of breath Gastrointestinal: denies abdominal pain No nausea. No vomiting. Genitourinary: No pain while urinating. Denies blood in urine. All other negative except as mentioned in HPI. per son, pt refused to go for outpt follow ups Physical Examination: General Appearance: Comfortable, in no acute respiratory distress, co-operative . Vitals reviewed and noted as below Head; Atraumatic, normocephalic ENT: no ulcers no thrush. Tongue is midline. Oropharynx: no rash or ulcers. EYES: Pupils are equal, round and reactive to light accommodation. Eye muscles and extra-ocular movement intact. Sclera is anicteric. Neck; supple no lymphadenopathy, no thyromegaly or bruit Lungs: Normal respiratory rate/effort. Breath sounds bilateral slight reduced at bases Heart: Incr rate. s1s2 normal. No rub or gallop. Extremities: no edema. No varicose veins. left foot in dressing Neurological: Patient is alert, awake and oriented to person, place and time. No focal deficit. Strength bilateral appropriate and equal Skin: Warm and dry. Normal turgor. No rash. Palpitation: Normal elasticity for age Abdomen: Abdomen is soft. Bowel sounds +. There is no abdominal tenderness, no guarding/rigidity no organomegaly Psych: lack insight and has normal affect/mood MSK: no joint tenderness or swelling. Digits and nails normal, no deformity : kidney or bladder not palpable. Labs/imaging reviewed. Past medical history, past surgical history, family history, social history, allergy reviewed and noted as below Family hx: no hx of CKD. Rest non-contributory Phos 3.5 TSAT 13% Vit D 41 PTH 49 LDL 103 kappa/lambda 3.4 uric acid 7.5 renal cyst left side Objective - Vital Signs/Intake and Output Vital Signs (last 24 hours): Temp Pulse Resp BP Pulse Ox 98.2 F 90 20 110/70 98 12/03/18 08:13 12/03/18 08:13 12/03/18 08:13 12/03/18 08:13 12/03/18 08:13 Intake and Output: 12/03/18 12/03/18 06:59 18:59 Intake Total 1080 Output Total 1300 Balance -220 - Medications Medications: Current Medications Acetaminophen (Tylenol 325mg Tab) 650 mg PO Q6H PRN PRN Reason: Pain, Mild (1-3) Last Admin: 12/02/18 22:24 Dose: 650 mg Acetaminophen (Tylenol 325mg Tab) 650 mg PO Q6 PRN PRN Reason: Fever >100.4 F Dextrose (Dextrose 50% Inj) 0 ml IV STAT PRN; Protocol PRN Reason: Hypoglycemia Protocol Docusate Sodium (Colace) 100 mg PO TID [facility] Last Admin: 12/03/18 09:52 Dose: 100 mg Ferrous Gluconate (Fergon) 324 mg PO TID [facility] Heparin Sodium (Porcine) (Heparin) 5,000 units SC Q8 [facility]; Protocol Last Admin: 12/03/18 06:02 Dose: 5,000 units Dextrose (Dextrose 5% In Water 1000 Ml) 1,000 mls @ 0 mls/hr IV .Q0M PRN; Protocol PRN Reason: Hypoglycemia Protocol Meropenem/Sodium Chloride (Merrem Iv 500 Mg/Ns 50 Ml) 500 mg in 50 mls @ 100 mls/hr IVPB Q12 [facility]; Protocol Last Admin: 12/02/18 21:43 Dose: 100 mls/hr Insulin Human Lispro (Humalog Med) 0 units SC AC [facility]; Protocol Last Admin: 12/03/18 09:50 Dose: 3 units Insulin Human NPH (Humulin N) 20 units SC ACBD [facility] Last Admin: 12/03/18 09:51 Dose: 20 units Midodrine (Proamatine) 2.5 mg PO TID [facility] Last Admin: 12/03/18 10:02 Dose: 2.5 mg Morphine Sulfate (Morphine) 2 mg IVP Q4H PRN PRN Reason: Pain, severe (8-10) Last Admin: 12/02/18 11:45 Dose: 2 mg Polyethylene Glycol (Miralax) 17 gm PO BID [facility] Last Admin: 12/03/18 09:51 Dose: 17 gm Sodium Hypochlorite (Dakins Solution 0.25%) 20 ml TOP DAILY [facility] Last Admin: 12/03/18 09:53 Dose: 1 applic Tamsulosin HCl (Flomax) 0.4 mg PO DAILY [facility] Vitamin B Complex/Vit C/Folic Acid (Nephro-Sumit) 1 tab PO 0800 [facility] - Labs Labs: 12/03/18 07:30 12/03/18 07:30 PT 14.7 SECONDS (9.4-12.5) H 11/25/18 13:05 INR 1.30 11/25/18 13:05 APTT 26.3 Seconds (26.9-38.3) L 11/25/18 13:05
[2018-12-03] MEDS: MEROPENEM 500 MG in NS 500 MG/50 ML BAG IVPB SCH ×2 (13:39→21:29)
--- NOTE | 2018-12-03 13:47 | CP.PCM.PCO ---
Physician Communication Note - Physician Communication Note Physician Communication Note: continue management of wound as per surgery, OR pending
--- NOTE | 2018-12-03 14:04 | PN ---
DATE: 12/03/2018 CARDIOLOGY FOLLOWUP SUBJECTIVE: The patient is in bed without distress. PHYSICAL EXAMINATION: VITAL SIGNS: Stable. NECK: Negative JVD. HEART: Reveals S1, S2. LUNGS: Without rales. EXTREMITIES: Status post digital amputation. LABORATORY DATA: Laboratories are noted. IMPRESSION: 1. Cellulitis of the lower extremities. 2. Status post amputation of lower digits. 3. Dilated cardiomyopathy. 4. Renal insufficiency. 5. Coronary artery disease. 6. Anemia. PLAN: Given these findings, the patient continued on IV antibiotics. There are no active cardiac issues at this time. Milton Murrell MD
--- NOTE | 2018-12-03 20:52 | PN ---
DATE: 12/03/2018 SUBJECTIVE: The patient is in bed in no acute distress, nontoxic. PHYSICAL EXAMINATION VITAL SIGNS: On exam temperature is 98, blood pressure is 109/60, respiratory rate of 20 and heart rate of 95. HEENT: Unremarkable. NECK: Supple. LUNGS: Have decreased breath sounds. HEART: Normal S1 and S2. ABDOMEN: Soft and nontender. LABORATORY EXAMINATION: Reveals a white count is 10,000 and hemoglobin of 10. Chemistries reveals a BUN of 32 and creatinine of 1.8. Urinalysis is noted. 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 Review of orders from reveals the patient to be on meropenem. We will follow with you. Tai Landaverde MD
[2018-12-03] MEDS ORDERED: Insulin Lispro 1 UNITS/0.01 ML SC STA (23:10)
--- NOTE | 2018-12-03 23:29 | PN ---
DATE: 12/03/2018 SUBJECTIVE: The patient is seen, lying in room 575, bed 2. The patient is alert, awake, and responsive with confusion noted. PHYSICAL EXAMINATION: VITAL SIGNS: T-max 98.9. Heart rate 90, 85, 93, and 95. Blood pressures 109/64, 110/70, and 115/70. Respirations 20. O2 sat 96% to 100%. HEENT: Head examination, normocephalic and atraumatic. HEENT examination shows pinkish pale conjunctivae. Anicteric sclerae. No oropharyngeal lesion. NECK: No neck rigidity. CHEST: Kyphosis. LUNGS: Show no audible crackle, rales, or wheezing. CARDIOVASCULAR: S1 and S2, regular rhythm. Positive systolic murmur at the left sternal border, right second intercostal space, and left second intercostal space. ABDOMEN: Soft. Positive bowel sound. GENITALIA: Male. RECTAL: Deferred. EXTREMITIES: Show positive left foot dressing. No pitting edema. No calf tenderness and no Homans' sign. NEUROLOGIC: The patient is alert, awake, responsive, confused, and disoriented. MUSCULOSKELETAL: Shows a body mass index of 23. DIAGNOSTICS: On 12/03/2018, WBC 10.1, hemoglobin/hematocrit 10.7 and 33, and platelet 541. Sodium 135, potassium 4.4, chloride 99, CO2 of 28, anion gap 13, BUN 32, creatinine 1.8, GFR 37, glucose 186, calcium 9, phosphorus 4.1, and magnesium 2.2. LFTs are normal. Left foot, repeat cultures are growing Proteus mirabilis and Pseudomonas aeruginosa. The patient has received 3 units of PRBC. ASSESSMENT: 1. Left foot great toe acute osteomyelitis with gangrenous necrosis and gouty tophi. 2. Status post left foot debridement and amputation of the left foot great toe and second metatarsal. 3. Status post debridement of the left foot and removal of the left foot third and fourth toe nails. 4. Fever. 5. Tachycardia. 6. Hypotension. 7. Persistent refractory leukocytosis with granulocytosis. 8. Elevated erythrocyte sedimentation rate 222. 9. Acute kidney injury with underlying chronic kidney disease stage III to IV. 10. Uncontrolled insulin-requiring diabetes mellitus with hemoglobin A1c of 8.6 and fructosamine of 329. 11. Lactic acidosis. 12. Elevated C-reactive protein of greater than 15. 13. Hypertriglyceridemia. 14. Decreased HDL of 18. 15. Questionable iron deficiency. 16. Questionable delirium with episodic forgetfulness and disorientation versus toxic metabolic encephalopathy. 17. Proteinuria, microscopic hematuria, and bacteriuria. 18. Questionable monoclonal gammopathy of unknown significance with elevated total kappa/lambda ratio. 19. Left foot great toe Proteus mirabilis, Pseudomonas aeruginosa, and beta hemolytic strep group B osteomyelitis and diabetic foot ulceration. 20. Status post packed red blood cell transfusion x3. 21. Gait dysfunction. 22. Deconditioning. 23. History of gout and hyperuricemia. 24. Acute kidney injury with underlying hypertensive and diabetic chronic kidney disease stage III/IV. 25. Severe mitral and tricuspid regurgitation with systolic congestive heart failure, left ventricle ejection fraction of 35% to 40%. 26. Encephalopathy. 27. Constipation. 28. Prostatic hypertrophy. 1. Acute osteomyelitis of the left foot great toe. 2. Episodic confusion, forgetfulness and disorientation, etiology unclear, questionable delirium versus encephalopathy. 3. Persistent leukocytosis. 4. 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 5. Status post left foot great toe amputation and fifth metatarsal left foot great toe amputation and metatarsal amputation. 6. 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 7. Uncontrolled diabetes mellitus with hypoglycemia. 8. Recurrent high-grade fever. 9. High-grade fever. 10. Tachycardia. 11. Hypotension. 12. History of dilated cardiomyopathy, etiology undetermined. 13. Normocytic anemia, status post packed red blood cell transfusion x3. 14. Persistent refractory leukocytosis with granulocytosis. 15. Uncontrolled diabetes mellitus with hyperglycemia and episodic hypoglycemia. 16. Left foot diabetic foot ulceration and left foot great toe acute osteomyelitis. 17. Severe peripheral vascular disease of the lower extremity. 18. Gait dysfunction. 19. Deconditioning. 20. Noncompliance. 21. History of hypertension, hyperuricemia and gout. 22. Possible monoclonal gammopathy of unknown significance with elevated kappa lambda ratio. 1. Left foot great toe acute osteomyelitis and gangrenous necrosis with gouty tophi with acute gangrenous necrosis and acute osteomyelitis. 2. High-grade fever. 3. Tachycardia. 4. Hypotension. 5. Proteus mirabilis, Pseudomonas aeruginosa and beta hemolytic streptococcus group B left foot great toe osteomyelitis, diabetic foot ulceration and cellulitis. 6. Severe peripheral vascular disease. 7. Refractory leukocytosis. 8. Granulocytosis. 9. Elevated erythrocyte sedimentation rate of 122. 10. Normocytic anemia. 11. Status post packed red blood cell transfusion x3. 12. Uncontrolled insulin-requiring diabetes mellitus with hyperglycemia and hemoglobin A1c of 8.6 and fructosamine of 329. 13. Gait dysfunction secondary to nonweightbearing status of the left foot and toe. 14. Deconditioning. 15. Questionable delirium. 16. Iron-deficiency. 17. Hypertriglyceridemia with decreased high-density lipoprotein. 18. Lactic acidosis. 19. Elevated C-reactive protein no greater than 15. 20. Acute kidney injury with underlying chronic kidney disease, stage 3/4. 21. Proteinuria. 22. Microscopic hematuria, pyuria, bacteriuria. 23. Questionable monoclonal gammopathy of unknown significance with elevated kappa to lambda ratio. 24. Status post left foot great toe amputation and second metatarsal amputation and removal of the third and fourth toe nail and wound debridement. 25. Hypertensive diabetic chronic kidney disease. 26. Severe mitral regurgitation with systolic congestive heart failure and cardiomyopathy with ejection fraction of 35%. 27. Monoclonal gammopathy of unknown significance. 28. Episodic confusion and disorientation. 29. Constipation. 30. Insulin-requiring diabetes mellitus. 31. Hypertension. 1. 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 2. Recurrent fever. 3. Tachycardia. 4. Hypertension. 5. Persistent refractory leukocytosis. 6. Normocytic anemia. 7. Status post packed red blood cell transfusion x3. 8. Reactive thrombocytosis. 9. Granulocytosis. 10. Acute kidney injury with chronic kidney disease stage 4. 11. Status post left foot left great toe amputation and metatarsal amputation. 12. Status post left foot second and third toe removal. 13. Left foot wound debridement. 14. Severe peripheral vascular disease. 15. Uncontrolled diabetes mellitus with hyperglycemia and elevated hemoglobin A1c. 16. Transitional confusional and disorientation state. 17. Possible delirium versus toxic metabolic encephalopathy. 18. Hypotension. 1. Pseudomonas aeruginosa, Proteus mirabilis and beta hemolytic group B Streptococcus, left foot diabetic ulceration and gangrene. 2. Status post status post left foot great toe amputation and metatarsal amputation. 3. Status post removal of the second and third toe nail. 4. Status post left foot wound debridement. 5. Severe peripheral vascular disease of the lower extremity with ankle-brachial indexes of less than 1. 6. History of chronic osteomyelitis of the left foot. 7. Normocytic anemia. 8. Refractory leukocytosis, slow resolving. 9. Reactive thrombocytosis. 10. Leukocytosis with granulocytosis. 11. Status post packed red blood cell transfusion x3. 12. Hypertensive and diabetic chronic kidney disease stage III. 13. Uncontrolled diabetes mellitus with hyperglycemia and elevated hemoglobin A1c. 14. Deconditioning. 15. Gait dysfunction. 16. Questionable delirium versus encephalopathy versus transient confusional and disorientation state. 17. History of hyperuricemia and gout. 18. History of poor compliance, noncompliance. 19. Tachycardia. 20. High-grade fever. 21. Transient hypotension. 22. Dilated cardiomyopathy with left ventricular ejection fraction of 35%. 23. Severe mitral and tricuspid regurgitation. 24. Severe peripheral vascular disease of the lower extremity. 1. Sepsis, secondary to left foot diabetic foot ulceration secondary to Proteus mirabilis, Pseudomonas aeruginosa, beta hemolytic group B strep. 2. High-grade fever. 3. Tachycardia. 4. Episodic hypotension. 5. Leukocytosis with granulocytosis. 6. Acute kidney injury with underlying chronic kidney disease stage 4. 7. Uncontrolled non-insulin requiring diabetes mellitus with hyperglycemia and elevated hemoglobin A1c and elevated fructosamine of 329. 8. Episodic disorientation and confusion, possible questionable delirium versus toxic metabolic encephalopathy. 9. Proteinuria, microscopic hematuria, bacteriuria. 10. Monoclonal gammopathy, of unknown significance. 11. Metabolic acidosis. 12. Hypertensive, diabetic, chronic kidney disease stage 3. 13. Severe mitral, tricuspid regurgitation with systolic congestive heart failure and cardiomyopathy with ejection fraction of 35%. 14. Left foot grade 2 amputation, second metatarsal amputation, and third and fourth toe toenail removal and wound debridement. 15. Cardiomyopathy. 16. Severe peripheral vascular disease of the lower extremity. 17. Persistent refractory leukocytosis. 18. Chronic microvascular ischemic disease of the brain and cerebral cortical atrophy of the brain. 19. Gait dysfunction. 20. Deconditioning. 21. Transient confusion state secondary to transient cerebral hypoperfusion and hyperglycemic fluctuations. 1. Status post left foot great toe amputation and second metatarsal amputation and third and fourth digit toenail removal and left foot wound debridement, postop day #1. 2. Chronic nonhealing left foot diabetic foot ulceration and possible gangrene. 3. Fever. 4. Tachycardia. 5. Hypotension. 6. Persistent refractory leukocytosis with granulocytosis. 7. Normocytic anemia, status post packed red blood cell transfusion x3. 8. Uncontrolled diabetes mellitus with hyperglycemia and elevated hemoglobin A1c of 8.6. 9. Hyper fructosemia. 10. Lactic acidosis. 11. Hyperuricemia. 12. Possible iron-deficiency. 13. Elevated C-reactive protein of greater than 15. 14. Hypertriglyceridemia. 15. Proteinuria. 16. Microscopic hematuria. 17. Bacteriuria. 18. Elevated total kappa lambda ratio. 19. Pseudomonas aeruginosa and beta hemolytic strep group B left foot diabetic foot ulceration. 20. Status post packed red blood cell transfusion x3. 21. Left foot cellulitis. 22. Chronic microvascular ischemic disease of the brain and cerebral cortical atrophy of the brain. 23. Sepsis with Pseudomonas aeruginosa and group B Streptococcus beta hemolytic Streptococcus left foot diabetic foot ulcerations and cellulitis. 24. Kidney injury with underlying chronic kidney disease. 25. Hypertensive diabetic chronic kidney disease. 26. Stage III chronic kidney disease secondary to hypertension and vasculopathy. 27. Anemia. 28. Monoclonal gammopathy of unknown significance. 29. Transient and episodic confusion and disorientation, probably secondary to transient cerebral hypoperfusion and uncontrolled diabetes mellitus. 30. Sepsis. 1. Group B Streptococcus and Pseudomonas aeruginosa, left foot diabetic foot ulceration and gangrene and cellulitis. 2. History of chronic osteomyelitis of the left foot. 3. High-grade fever. 4. Questionable sepsis versus systemic inflammatory response syndrome. 5. Tachycardia. 6 Hypotension. 7. Questionable and possible encephalopathy versus toxic metabolic encephalopathy with episodic confusion and disorientation. 8. Type 2 diabetes mellitus. 9. Anemia of chronic disease. 10. Status post packed red blood cell transfusion x2. 11. Gait dysfunction. 12. Deconditioning. 13. Status post left foot big toe amputation,2nd metatarsal amputation, wound debridement and 3rd and 4th toe nail removal. 14. Persistent refractory leukocytosis with granulocytosis 15. Normocytic anemia. 16. Uncontrolled type 2 diabetes mellitus with hyperglycemia. 17. Microvascular ischemic disease of the brain. 18. Cerebral cortical atrophy of the brain. 19. Gait dysfunction with nonweightbearing status of the left foot. 20. Severe peripheral vascular disease of the lower extremity with severe bilateral tibial and distal lower extremities severe occlusive disease with ankle-brachial index is of less than 1. 21. History of hypertension. 22. History of gout and hyperuricemia. 23. History of gouty arthritis. 24. Dilated cardiomyopathy with ejection fraction of 35% with severe mitral and tricuspid regurgitation. 25. Acute kidney injury with underlying chronic kidney disease stage III. 26. Proteinuria and microscopic hematuria. 1. High-grade fever and new fever. 2. Tachycardia. 3. Hypotension. 4. Questionable sepsis versus systemic inflammatory response syndrome with high-grade fever, tachycardia, hypotension. 5. Persistent refractory leukocytosis with granulocytosis. 6. Normocytic anemia. 7. Status post packed red blood cell transfusion x2. 8. Uncontrolled type 2 noninsulin-requiring diabetes mellitus with hyperglycemia. 9. Left foot Pseudomonas aeruginosa, group B Streptococcus with beta-hemolytic left foot, and left foot diabetic ulceration and possible diabetic left foot gangrene. 10. Proteinuria. 11. Microscopic hematuria. 12. Bacteriuria. 13. Left foot group B streptococcal beta-hemolytic and Pseudomonas aeruginosa left foot diabetic foot ulceration. 14. Episodic disorientation and confusion, etiology undetermined. 15. Questionable toxic metabolic encephalopathy. 16. Hyperglycemia secondary to uncontrolled diabetes mellitus. 17. Status post packed red blood cell transfusion x2. 18. Persistent refractory leukocytosis. 19. Left foot diabetic ulceration and diabetic cellulitis. 20. Dilated cardiomyopathy. 21. History of poor compliance and noncompliance. 22. History of hyperuricemia and gout. 23. 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 24. Gait dysfunction. 25. Deconditioning. 1. Left foot diabetic ulceration and nonhealing diabetic ulceration with possible diabetic gangrene of the left foot and great toe and the left foot toes with group B Streptococcus and Pseudomonas aeruginosa, cellulitis and diabetic foot gangrene of the left foot. 2. Uncontrolled diabetes mellitus with elevated hemoglobin A1c. 3. Fever. 4. Questionable sepsis. 5. Tachycardia. 6. Possible sepsis versus systemic inflammatory response syndrome. 7. Fever. 8. Transient hypotension. 9. Dilated cardiomyopathy. 10. Persistent refractory leukocytosis. 11. Normocytic anemia status post packed red blood cell transfusion. 12. Granulocytosis. 13. Acute kidney injury with underlying chronic kidney disease, stage IV. 14. Uncontrolled diabetes mellitus with hyperglycemia and an elevated hemoglobin A1c and hyperfructosemia. 15. History of poor compliance and noncompliance. 16. History of hyperuricemia and gout. 17. Severe peripheral vascular disease. 18. History of severe peripheral vascular disease of the lower extremity. 19. Severe mitral and tricuspid regurgitation. 20. Cardiomyopathy with ejection fraction of around 35%. 21. History of poor compliance. 22. History of chronic osteomyelitis of the left foot and partial amputation of the left foot second toe. 1. Fever. 2. Sinus tachycardia. 3. Pseudomonas nose group. Group B streptococcus group B beta hemolytic left foot diabetic foot ulcerations and cellulitis and gangrene. 4. Severe peripheral vascular disease. 5. Persistent refractory leukocytosis with granulocytosis. 6. Anemia with decreasing hemoglobin/hematocrit. 7. Elevated erythrocyte sedimentation rate of 122. 8. Chronic kidney disease, stage 3. 9. Hyperglycemia secondary to uncontrolled diabetes mellitus with hemoglobin A1c of 8.6 and hyper fructose anemia. 10. Transaminitis. 11. Iron-deficiency anemia. 12. Hypertriglyceridemia. 13. Elevated C-reactive protein of greater than 15. 14. Lactic acidosis. 15. Status post packed red blood cell transfusions x2. 16. Left foot erosive changes. 17. Severe peripheral vascular disease of bilateral popliteal trifurcation and tibial disease with normal resting ankle-brachial indices. 18. Chronic osteomyelitis of the left foot with bony destruction and sclerosis around the first metatarsophalangeal joint and partial amputation of the second proximal phalanx. 19. Severe degenerative joint disease of the left midfoot. 20. Left axis deviation. 21. Acute kidney injury with underlying chronic kidney disease. 22. Metabolic acidosis. 23. Hypertensive diabetic chronic kidney disease stage 3 without proteinuria. 24. Monoclonal gammopathy of unknown significance. 25. Severe mitral, tricuspid regurgitation with cardiomyopathy, left ventricular ejection fraction of 35% to 40%. 26. Left foot diabetic foot ulceration and gangrene. 27. Congestive heart failure with reduced ejection fraction. 28. Nonhealing left foot diabetic ulceration. 29. Sepsis with left foot cellulitis and diabetic foot ulceration with Pseudomonas secondary to Pseudomonas aeruginosa and Streptococcus group B beta hemolytic Streptococcus. 30. Questionable and possible delirium versus encephalopathy. 31. Gait dysfunction. 32. Deconditioning. 33. Constipation. 34. Hypovitaminosis D. 35. Prostatic hypertrophy. 36. Hyperlipidemia. 37. Hyperuricemia. 38. Hyperglycemia. 39. Uncontrolled diabetes mellitus with hyperglycemia. 40. Gait dysfunction. 41. History of poor compliance and noncompliance. 1. Left foot Pseudomonas aeruginosa and group B beta hemolytic strep, left foot diabetic foot ulceration and cellulitis. 2. Sepsis secondary to Pseudomonas aeruginosa and group B beta hemolytic strep, left diabetic foot ulceration and cellulitis. 3. Hypertension. 4. Tachycardia. 5. Anemia. 6. Status post packed red blood cell transfusion one unit. 7. Leukocytosis with granulocytosis. 8. Elevated erythrocyte sedimentation rate of 122. 9. Iron-deficiency. 10. Acute kidney injury with underlying chronic kidney disease, stage IV. 11. Uncontrolled diabetes mellitus with hyperglycemia and elevated hemoglobin A1c of 8.6 and elevated fructose, a mean of 329. 12. Transient lactic acidosis. 13. Transaminitis. 14. Hypertriglyceridemia. 15. Elevated C-reactive protein of greater than 15. 16. Gait dysfunction. 17. Deconditioning. 18. Metabolic acidosis. 19. 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 20. Severe mitral, tricuspid regurgitation and systolic congestive heart failure. 21. Left foot cellulitis and left foot diabetic ulceration. 22. Left diabetic foot ulceration and possible gangrene or pre-gangrenous condition of the left foot toes. 23. Left foot second digit amputation. 24. Peripheral vascular disease. 25. Left foot second toe amputation with cyanosis and mummification of the toes and forefoot of the left foot. 26. Severe tibial disease of the lower extremity. 27. Peripheral vascular disease. 28. Anemia of chronic disease. 29. Bilateral popliteal trifurcation and tibial disease. 30. Left anterior hemiblock. 1. Left foot Pseudomonas aeruginosa and group B Streptococcus beta hemolytic left foot cellulitis and diabetic foot ulcer. 2. Severe peripheral vascular disease of the lower extremity. 3. Normocytic anemia with decreasing hemoglobin. 4. Leukocytosis with granulocytosis. 5. Uncontrolled diabetes mellitus with hyperglycemia. 6. Acute kidney injury with underlying chronic kidney disease stage III/IV. 7. Transaminitis. 8. Probably anemia of chronic kidney disease. 9. Acute kidney injury with underlying chronic kidney disease. 10. Metabolic acidosis. 11. Hypertensive diabetic chronic kidney disease. 12. [id number] mitral regurgitation and [id number] tricuspid regurgitation. 13. Dilated cardiomyopathy with ejection fraction of 35%. 14. Sepsis. 15. Hypertension. 16. Gait dysfunction. 17. Deconditioning. 18. Bilateral lower extremity peripheral vascular disease. 19. History of poor compliance and noncompliance. 20. History of hyperuricemia and gout. 1. Left foot cellulitis versus gangrene versus pregangrenous state. 2. Sepsis. 3. Tachycardia. 4. Transient episodic hypotension. 5. Leukocytosis with granulocytosis 6. Elevated erythrocyte sedimentation rate of 122. 7. Normocytic anemia. 8. Chronic kidney disease stage 4 with acute kidney injury. 9. Uncontrolled noninsulin-requiring diabetes mellitus with hyperglycemia and hemoglobin A1c of 8.6. 10. Possible iron-deficiency. 11. Hypertriglyceridemia. 12. Elevated C-reactive protein of greater than 15. 13. Transient lactic acidosis. 14. Transaminitis. 15. Deconditioning. 16. Gait dysfunction. 17. Anemia with decreasing hemoglobin and hematocrit. 18. Metabolic acidosis. 19. Diabetic hypertensive chronic kidney disease. 20. Chronic kidney disease stage 3 without proteinuria. 21. Severe mitral and tricuspid regurgitation. 22. Systolic congestive heart failure. 23. Dilated ischemic cardiomyopathy, etiology undetermined. 1. Left foot cellulitis with diabetic foot disease and possible abscess versus possible osteomyelitis. 2. History of left foot second toe amputation. 3. Hypertension. 4. Tachycardia. 5. Fever. 6. Poor compliance and noncompliance. 7. Leukocytosis with granulocytosis. 8. Normocytic anemia. 9. Elevated erythrocyte sedimentation rate of 122. 10. Chronic kidney disease, stage IV with acute kidney injury. 11. Transient lactic acidosis. 12. History of hyperuricemia. 13. Hypertriglyceridemia. 14. Aortic calcification. 15. Bilateral lower extremity popliteal trifurcation and tibial peripheral vascular disease. 16. Left foot first metatarsophalangeal joint bony destruction and sclerosis, chronic osteomyelitis. 17. 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 18. 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 19. Sinus tachycardia with left anterior hemiblock. 20. Deconditioning. 21. History of poor compliance. 22. Chronic dilated ischemic cardiomyopathy with ejection fraction of . 23. History of hypertension. 24. History of heart failure with reduced ejection fraction of 35%. 25. Pulmonary hypertension with right ventricular systolic pressure of 40 mmHg. 26. Left ventricular global hypokinesis and moderately impaired left ventricular systolic function. 27. Mild aortic regurgitation. 28. Moderate to severe mitral regurgitation. 29. Moderate tricuspid regurgitation. 30. History of constipation. 31. Hypovitaminosis D. 32. History of iron-deficiency anemia. 33. Prostatic hypertrophy. 34. Insulin-requiring diabetes mellitus. 35. Hyperlipidemia. 36. History of peripheral vascular disease. 37. Hyperuricemia. 1. Left foot diabetic foot ulceration versus left foot abscess versus left foot toe osteomyelitis. 2. Tachycardia. 3. Leukocytosis with granulocytosis. 4. Questionable systemic inflammatory response syndrome. 5. Uncontrolled diabetes mellitus with hyperglycemia. 6. Chronic kidney disease stage IV. 7. Mild transaminitis. 8. History of hypertension. 9. Hyperlipidemia. 10. History of prostatic hypertrophy. 11. History of iron-deficiency anemia. 12. History of hypovitaminosis D. 13. History of dilated cardiomyopathy. 14. History of pulmonary hypertension. 15. History of moderate tricuspid regurgitation and mitral regurgitation. 16. Hyperuricemia. PLAN: At this time, the patient has been ordered a repeat labs for the morning. Current consultation for Interventional Radiology, Podiatry, Cardiology, Vascular Surgery, Gastroenterology, Hematology/Oncology, Infectious Disease, Nephrology, and Neurology. Diabetic education referral ordered. CURRENT MEDICATIONS: Colace 100 mg 3 times a day, Dakin solution to the left foot daily, ferrous gluconate 324 three times a day, Flomax 0.4 mg daily, heparin 5000 subcu every 8 hours, Humalog medium dose sliding scale coverage, NPH 20 units with breakfast and dinner, meropenem 500 mg IV every 12 hours, MiraLax 17 g twice a day, morphine 2 mg IV every 4 hours p.r.n., Nephro-Sumit 1 tablet daily, midodrine 2.5 mg 3 times a day, and Tylenol 650 mg p.o. every 6 hours p.r.n. The patient's Lopressor is not on the MAR. The patient's metoprolol has fallen off the MAR. We will continue to hold metoprolol with titration of midodrine. The patient has been ordered out of bed to chair, physical therapy with nonweightbearing to the left foot and left leg. The patient was seen by physical therapist. Their recommendation is that the patient needs subacute rehab. The patient is not eligible for TCU. Presently, we are waiting for further recommendations from Vascular Surgery regarding surgical intervention. Dictated and electronically signed, not read. Niranjan Ling MD MTDD
--- NOTE | 2018-12-03 23:47 | CP.PCM.PN ---
Subjective - Date & Time of Evaluation Date of Evaluation: 12/03/18 Time of Evaluation: 23:44 - Subjective Subjective: Patient was seen at bedside. I was asked to co-sign insulin order. He has no complaints. Somewhat confused. Not known if he has had extra food. Pertinent medical record was reviewed. O:Awake, alert, not in distress. Confused. VSS. LUNGS:Normal breathing pattern. A:Hyperglycemia. P:Insulin 4 U SC x 1. Observation. Objective - Vital Signs/Intake and Output Vital Signs (last 24 hours): Temp Pulse Resp BP Pulse Ox 98.7 F 111 H 20 109/64 98 12/03/18 22:08 12/03/18 22:08 12/03/18 22:08 12/03/18 22:08 12/03/18 22:08 - Medications Medications: Current Medications Acetaminophen (Tylenol 325mg Tab) 650 mg PO Q6H PRN PRN Reason: Pain, Mild (1-3) Last Admin: 12/02/18 22:24 Dose: 650 mg Acetaminophen (Tylenol 325mg Tab) 650 mg PO Q6 PRN PRN Reason: Fever >100.4 F Dextrose (Dextrose 50% Inj) 0 ml IV STAT PRN; Protocol PRN Reason: Hypoglycemia Protocol Docusate Sodium (Colace) 100 mg PO TID [facility] Last Admin: 12/03/18 17:45 Dose: 100 mg Ferrous Gluconate (Fergon) 324 mg PO TID [facility] Last Admin: 12/03/18 17:46 Dose: 324 mg Heparin Sodium (Porcine) (Heparin) 5,000 units SC Q8 [facility]; Protocol Last Admin: 12/03/18 21:29 Dose: 5,000 units Dextrose (Dextrose 5% In Water 1000 Ml) 1,000 mls @ 0 mls/hr IV .Q0M PRN; Protocol PRN Reason: Hypoglycemia Protocol Meropenem/Sodium Chloride (Merrem Iv 500 Mg/Ns 50 Ml) 500 mg in 50 mls @ 100 mls/hr IVPB Q12 [facility]; Protocol Last Admin: 12/03/18 21:29 Dose: 100 mls/hr Insulin Human Lispro (Humalog Med) 0 units SC AC [facility]; Protocol Last Admin: 12/03/18 17:25 Dose: Not Given Insulin Human NPH (Humulin N) 20 units SC ACBD [facility] Last Admin: 12/03/18 17:44 Dose: Not Given Midodrine (Proamatine) 2.5 mg PO TID [facility] Last Admin: 12/03/18 13:40 Dose: 2.5 mg Morphine Sulfate (Morphine) 2 mg IVP Q4H PRN PRN Reason: Pain, severe (8-10) Last Admin: 12/02/18 11:45 Dose: 2 mg Polyethylene Glycol (Miralax) 17 gm PO BID [facility] Last Admin: 12/03/18 17:45 Dose: 17 gm Sodium Hypochlorite (Dakins Solution 0.25%) 20 ml TOP DAILY [facility] Last Admin: 12/03/18 09:53 Dose: 1 applic Tamsulosin HCl (Flomax) 0.4 mg PO DAILY [facility] Vitamin B Complex/Vit C/Folic Acid (Nephro-Sumit) 1 tab PO 0800 [facility] - Labs Labs: 12/03/18 07:30 12/03/18 07:30 PT 14.7 SECONDS (9.4-12.5) H 11/25/18 13:05 INR 1.30 11/25/18 13:05 APTT 26.3 Seconds (26.9-38.3) L 11/25/18 13:05
[2018-12-04 08:11] LABS: ALB/GLOB RATIO 0.9 (1.1-1.8); ALBUMIN 3.5 g/dL (3.0-4.8); BILIRUBIN,DIRECT 0.2 mg/dL (0.0-0.4); CALCIUM 9.2 mg/dL (8.4-10.5)
[2018-12-04] MEDS: Insulin Lispro (humaLOG) MEDIUM Coverage SC SCH ×3 (08:21→17:25)
[2018-12-04] MEDS: Multivitamin Vitamin B Complex (Nephro-Vite) Tab PO SCH (08:23)
[2018-12-04] MEDS: Insulin Human NPH 1 UNITS/0.01 ML SC SCH ×2 (09:20→17:27)
--- NOTE | 2018-12-04 09:58 | PN ---
DATE: 12/04/2018 SUBJECTIVE: The patient is in bed in no acute distress, nontoxic. PHYSICAL EXAMINATION: VITAL SIGNS: Temperature is 98, blood pressure is 109/60, respiratory rate of 18. HEENT: Unremarkable. NECK: Supple. LUNGS: Have decreased breath sounds. HEART: Normal S1, S2. ABDOMEN: Soft, nontender. LABORATORY EXAMINATION: White count is 10 and hemoglobin of 10 and BUN of 35, creatinine of 1.8. ASSESSMENT AND PLAN: This is a 73-year-old male who was seen with left hallux and second metatarsal amputation, postop day #11. 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 Dr. Ling's note is reviewed. Review of orders reveals the meropenem to be active. Tai Landaverde MD
--- NOTE | 2018-12-04 09:59 | CP.PCM.PN ---
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 No acute events overnight. Pt reports myalgia this AM. denies F/C, N/V, foot pain. tolerating diet. Objective - Vital Signs/Intake and Output Vital Signs (last 24 hours): Temp Pulse Resp BP Pulse Ox 98.4 F 95 H 17 113/73 97 12/04/18 06:00 12/04/18 06:00 12/04/18 06:00 12/04/18 06:00 12/04/18 06:00 Intake and Output: 12/04/18 12/04/18 06:59 18:59 Output Total 350 Balance -350 - Medications Medications: Current Medications Acetaminophen (Tylenol 325mg Tab) 650 mg PO Q6H PRN PRN Reason: Pain, Mild (1-3) Last Admin: 12/02/18 22:24 Dose: 650 mg Acetaminophen (Tylenol 325mg Tab) 650 mg PO Q6 PRN PRN Reason: Fever >100.4 F Dextrose (Dextrose 50% Inj) 0 ml IV STAT PRN; Protocol PRN Reason: Hypoglycemia Protocol Docusate Sodium (Colace) 100 mg PO TID [facility] Last Admin: 12/03/18 17:45 Dose: 100 mg Ferrous Gluconate (Fergon) 324 mg PO TID [facility] Last Admin: 12/03/18 17:46 Dose: 324 mg Heparin Sodium (Porcine) (Heparin) 5,000 units SC Q8 [facility]; Protocol Last Admin: 12/04/18 05:59 Dose: 5,000 units Dextrose (Dextrose 5% In Water 1000 Ml) 1,000 mls @ 0 mls/hr IV .Q0M PRN; Protocol PRN Reason: Hypoglycemia Protocol Meropenem/Sodium Chloride (Merrem Iv 500 Mg/Ns 50 Ml) 500 mg in 50 mls @ 100 mls/hr IVPB Q12 [facility]; Protocol Last Admin: 12/03/18 21:29 Dose: 100 mls/hr Insulin Human Lispro (Humalog Med) 0 units SC AC [facility]; Protocol Last Admin: 12/04/18 08:21 Dose: 3 units Insulin Human NPH (Humulin N) 20 units SC ACBD [facility] Last Admin: 12/03/18 17:44 Dose: Not Given Midodrine (Proamatine) 2.5 mg PO TID [facility] Last Admin: 12/03/18 13:40 Dose: 2.5 mg Morphine Sulfate (Morphine) 2 mg IVP Q4H PRN PRN Reason: Pain, severe (8-10) Last Admin: 12/02/18 11:45 Dose: 2 mg Polyethylene Glycol (Miralax) 17 gm PO BID [facility] Last Admin: 12/03/18 17:45 Dose: 17 gm Sodium Hypochlorite (Dakins Solution 0.25%) 20 ml TOP DAILY [facility] Last Admin: 12/03/18 09:53 Dose: 1 applic Tamsulosin HCl (Flomax) 0.4 mg PO DAILY [facility] Vitamin B Complex/Vit C/Folic Acid (Nephro-Sumit) 1 tab PO 0800 [facility] Last Admin: 12/04/18 08:23 Dose: 1 tab - Labs Labs: 12/03/18 07:30 12/04/18 07:01 PT 14.7 SECONDS (9.4-12.5) H 11/25/18 13:05 INR 1.30 11/25/18 13:05 APTT 26.3 Seconds (26.9-38.3) L 11/25/18 13:05 - Constitutional Appears: Non-toxic, No Acute Distress - Head Exam Head Exam: NORMAL INSPECTION - Eye Exam Eye Exam: Normal appearance - ENT Exam ENT Exam: Mucous Membranes Moist - Respiratory Exam Respiratory Exam: NORMAL BREATHING PATTERN. absent: Accessory Muscle Use, Respiratory Distress - Cardiovascular Exam Cardiovascular Exam: absent: Bradycardia, Tachycardia - GI/Abdominal Exam GI & Abdominal Exam: Soft. absent: Distended - Extremities Exam Additional comments: L foot dressing mostly removed by pt. new dressing applied dry gangrene to 3rd toe - Neurological Exam Neurological Exam: Alert, Awake - Psychiatric Exam Psychiatric exam: Normal Affect, Normal Mood - Skin Skin Exam: Dry, Warm Assessment and Plan - Assessment and Plan (Free Text) Assessment: 73 y/o M POD#10 s/p great toe and 2nd metatarsal amputation 2/2 chronic foot wound and osteomylitis Plan: - cont dakins wet-to-dry dressing changes by Surgery - cont Abx per ID - pain management PRN - PT/OT - cont medical management - plan for OR this week for definitive TMA vs BKA Pt discussed w/ Dr. Ian Strickland PGY3 <Kain Sosa - Last Filed: 12/09/18 19:27> Objective - Vital Signs/Intake and Output Vital Signs (last 24 hours): Temp Pulse Resp BP Pulse Ox 98.4 F 94 H 20 97/62 L 100 12/09/18 13:44 12/09/18 13:44 12/09/18 13:44 12/09/18 13:44 12/09/18 13:44 Intake and Output: 12/09/18 12/10/18 18:59 06:59 Intake Total 480 Output Total 300 Balance 180 - Medications Medications: Current Medications Acetaminophen (Tylenol 325mg Tab) 650 mg PO Q6H PRN PRN Reason: Pain, Mild (1-3) Last Admin: 12/08/18 09:31 Dose: 650 mg Acetaminophen (Tylenol 325mg Tab) 650 mg PO Q6 PRN PRN Reason: Fever >100.4 F Dextrose (Dextrose 50% Inj) 0 ml IV STAT PRN; Protocol PRN Reason: Hypoglycemia Protocol Dextrose (Dextrose 50% Inj) 0 ml IV STAT PRN; Protocol PRN Reason: Hypoglycemia Protocol Docusate Sodium (Colace) 100 mg PO TID [facility] Last Admin: 12/09/18 18:14 Dose: 100 mg Famotidine (Pepcid) 20 mg PO 1000,2200 [facility] Stop: 12/11/18 10:01 Last Admin: 12/09/18 10:50 Dose: 20 mg Ferrous Gluconate (Fergon) 324 mg PO TID [facility] Last Admin: 12/09/18 18:14 Dose: 324 mg Heparin Sodium (Porcine) (Heparin) 5,000 units SC Q8 [facility]; Protocol Last Admin: 12/09/18 15:31 Dose: 5,000 units Dextrose (Dextrose 5% In Water 1000 Ml) 1,000 mls @ 0 mls/hr IV .Q0M PRN; Protocol PRN Reason: Hypoglycemia Protocol Meropenem/Sodium Chloride (Merrem Iv 500 Mg/Ns 50 Ml) 500 mg in 50 mls @ 100 mls/hr IVPB Q12 [facility]; Protocol Last Admin: 12/09/18 10:51 Dose: 100 mls/hr Dextrose (Dextrose 5% In Water 1000 Ml) 1,000 mls @ 0 mls/hr IV .Q0M PRN; Protocol PRN Reason: Hypoglycemia Protocol Insulin Human Lispro (Humalog Med) 0 units SC AC [facility]; Protocol Last Admin: 12/09/18 17:00 Dose: 1 units Insulin Human NPH (Humulin N) 17 units SC ACBD [facility] Last Admin: 12/09/18 17:03 Dose: 17 unit Midodrine (Proamatine) 5 mg PO TID [facility] Last Admin: 12/09/18 18:14 Dose: 5 mg Nystatin (Nystop Topical Powder) 0 gm TOP BID [facility] Last Admin: 12/09/18 18:17 Dose: 1 appl Ondansetron HCl (Zofran Inj) 4 mg IVP Q4H PRN PRN Reason: Nausea/Vomiting Pantoprazole Sodium (Protonix Ec Tab) 40 mg PO 0600 [facility] Last Admin: 12/09/18 05:37 Dose: 40 mg Polyethylene Glycol (Miralax) 17 gm PO BID [facility] Last Admin: 12/09/18 18:16 Dose: Not Given Sodium Hypochlorite (Dakins Solution 0.25%) 20 ml TOP DAILY [facility] Last Admin: 12/09/18 10:47 Dose: 1 applic Tamsulosin HCl (Flomax) 0.4 mg PO DAILY [facility] Last Admin: 12/09/18 10:49 Dose: 0.4 mg Vitamin B Complex/Vit C/Folic Acid (Nephro-Sumit) 1 tab PO 0800 [facility] Last Admin: 12/09/18 08:17 Dose: 1 tab - Labs Labs: 12/09/18 07:30 12/09/18 07:30 PT 14.7 SECONDS (9.4-12.5) H 11/25/18 13:05 INR 1.30 11/25/18 13:05 APTT 26.3 Seconds (26.9-38.3) L 11/25/18 13:05 Assessment and Plan - Assessment and Plan (Free Text) Plan: Patient was seen, evaluated and examined by me at the bedside. I agree with assessment and plan as stated in the resident's note.
[2018-12-04] MEDS: MEROPENEM 500 MG in NS 500 MG/50 ML BAG IVPB SCH ×2 (10:17→21:00)
[2018-12-04] MEDS: POLYETHYLENE GLYCOL 3350 17 GM/Dose PACKET PO SCH ×2 (10:19→17:27)
[2018-12-04] MEDS: Dakin's Topical 0.25%-Half Strength (480 ml) TOP SCH (10:20)
--- NOTE | 2018-12-05 00:49 | PN ---
DATE: 12/04/2018 SUBJECTIVE: The patient is seen lying in the bed in room 575, bed 2. The patient is alert, awake, responsive. Today according to the nurse's note, the patient was found to be alert, awake, oriented x3 because the patient's nurse today is a [place] speaking nurse, so the patient today was alert, awake, oriented x3. PHYSICAL EXAMINATION: VITAL SIGNS: T-max 98.8, heart rate 95, blood pressure 105/69 and 113/73, respirations 17 to 18, and O2 sat is 97%. HEENT: Head examination: Normocephalic, atraumatic. HEENT examination shows pinkish pale conjunctivae, anicteric sclerae, no oropharyngeal lesion. No neck rigidity. CHEST: Kyphosis. LUNGS: Show no audible crackle, rales or wheezing. CARDIOVASCULAR: S1 and S2. Regular rhythm. Positive systolic murmur in left sternal border, right second intercostal space, left second intercostal space. ABDOMEN: Soft. Positive bowel sounds. No palpable hepatosplenomegaly. GENITALIA: Male. RECTAL: Deferred. EXTREMITIES: Show positive left foot dressing. No pitting edema. No calf tenderness. No Homans' sign. NEUROLOGIC: The patient is alert, awake, oriented x3, is able to move upper and lower extremities without assistance. Gait examination is not tested. MUSCULOSKELETAL: Shows a body mass index of 23. Cranial nerves II through XII limited. DIAGNOSTIC DATA: From 12/04/2018, sodium 135, potassium 4.6, chloride 97, CO2 of 28, anion gap 14, BUN 35, creatinine 1.8, GFR 45, glucose 245, calcium 9.2, phosphorus 3.9, magnesium 2.1. LFTs are normal. Fingerstick blood sugar: 199, 244, 245. IMPRESSION AND PLAN: 1. Left foot great toe acute osteomyelitis with gangrenous necrosis and gouty tophi. 2. Status post left foot debridement and amputation of the left foot great toe and second metatarsal amputation. 3. Status post debridement of the left foot diabetic foot ulceration and removal of the left foot third and fourth toe nails. 4. Fever. 5. Tachycardia. 6. Persistent leukocytosis with granulocytosis. 7. Normocytic anemia. 8. Status post packed red blood cell transfusion x3. 9. Elevated erythrocyte sedimentation rate of 122. 10. Uncontrolled diabetes mellitus with hyperglycemia and hypoglycemia with hemoglobin A1c of 8.6 and fructosamine of 329. 11. Acute kidney injury with underlying chronic kidney disease stage 3/4. 12. Proteinuria, microscopic hematuria, bacteriuria. 13. 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 14. Proteus mirabilis, Pseudomonas aeruginosa,and beta-hemolytic Streptococcus group B left foot diabetic foot ulceration and acute osteomyelitis. 15. Gait dysfunction. 16. Deconditioning with nonweightbearing status of the left foot. 17. Sepsis with Pseudomonas aeruginosa, Proteus mirabilis and group B Streptococcal left foot acute osteomyelitis, cellulitis and diabetic foot ulceration. 18. Questionable delirium versus toxic metabolic encephalopathy. 19. Constipation. 20. Iron deficiency. 21. Prostatic hypertrophy. 22. Hyperuricemia and gouty arthritis. 23. Hypotension. 1. Left foot great toe acute osteomyelitis with gangrenous necrosis and gouty tophi. 2. Status post left foot debridement and amputation of the left foot great toe and second metatarsal. 3. Status post debridement of the left foot and removal of the left foot third and fourth toe nails. 4. Fever. 5. Tachycardia. 6. Hypotension. 7. Persistent refractory leukocytosis with granulocytosis. 8. Elevated erythrocyte sedimentation rate 222. 9. Acute kidney injury with underlying chronic kidney disease stage III to IV. 10. Uncontrolled insulin-requiring diabetes mellitus with hemoglobin A1c of 8.6 and fructosamine of 329. 11. Lactic acidosis. 12. Elevated C-reactive protein of greater than 15. 13. Hypertriglyceridemia. 14. Decreased HDL of 18. 15. Questionable iron deficiency. 16. Questionable delirium with episodic forgetfulness and disorientation versus toxic metabolic encephalopathy. 17. Proteinuria, microscopic hematuria, and bacteriuria. 18. Questionable monoclonal gammopathy of unknown significance with elevated total kappa/lambda ratio. 19. Left foot great toe Proteus mirabilis, Pseudomonas aeruginosa, and beta hemolytic strep group B osteomyelitis and diabetic foot ulceration. 20. Status post packed red blood cell transfusion x3. 21. Gait dysfunction. 22. Deconditioning. 23. History of gout and hyperuricemia. 24. Acute kidney injury with underlying hypertensive and diabetic chronic kidney disease stage III/IV. 25. Severe mitral and tricuspid regurgitation with systolic congestive heart failure, left ventricle ejection fraction of 35% to 40%. 26. Encephalopathy. 27. Constipation. 28. Prostatic hypertrophy. 1. Acute osteomyelitis of the left foot great toe. 2. Episodic confusion, forgetfulness and disorientation, etiology unclear, questionable delirium versus encephalopathy. 3. Persistent leukocytosis. 4. 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 5. Status post left foot great toe amputation and fifth metatarsal left foot great toe amputation and metatarsal amputation. 6. 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 7. Uncontrolled diabetes mellitus with hypoglycemia. 8. Recurrent high-grade fever. 9. High-grade fever. 10. Tachycardia. 11. Hypotension. 12. History of dilated cardiomyopathy, etiology undetermined. 13. Normocytic anemia, status post packed red blood cell transfusion x3. 14. Persistent refractory leukocytosis with granulocytosis. 15. Uncontrolled diabetes mellitus with hyperglycemia and episodic hypoglycemia. 16. Left foot diabetic foot ulceration and left foot great toe acute osteomyelitis. 17. Severe peripheral vascular disease of the lower extremity. 18. Gait dysfunction. 19. Deconditioning. 20. Noncompliance. 21. History of hypertension, hyperuricemia and gout. 22. Possible monoclonal gammopathy of unknown significance with elevated kappa lambda ratio. 1. Left foot great toe acute osteomyelitis and gangrenous necrosis with gouty tophi with acute gangrenous necrosis and acute osteomyelitis. 2. High-grade fever. 3. Tachycardia. 4. Hypotension. 5. Proteus mirabilis, Pseudomonas aeruginosa and beta hemolytic streptococcus group B left foot great toe osteomyelitis, diabetic foot ulceration and cellulitis. 6. Severe peripheral vascular disease. 7. Refractory leukocytosis. 8. Granulocytosis. 9. Elevated erythrocyte sedimentation rate of 122. 10. Normocytic anemia. 11. Status post packed red blood cell transfusion x3. 12. Uncontrolled insulin-requiring diabetes mellitus with hyperglycemia and hemoglobin A1c of 8.6 and fructosamine of 329. 13. Gait dysfunction secondary to nonweightbearing status of the left foot and toe. 14. Deconditioning. 15. Questionable delirium. 16. Iron-deficiency. 17. Hypertriglyceridemia with decreased high-density lipoprotein. 18. Lactic acidosis. 19. Elevated C-reactive protein no greater than 15. 20. Acute kidney injury with underlying chronic kidney disease, stage 3/4. 21. Proteinuria. 22. Microscopic hematuria, pyuria, bacteriuria. 23. Questionable monoclonal gammopathy of unknown significance with elevated kappa to lambda ratio. 24. Status post left foot great toe amputation and second metatarsal amputation and removal of the third and fourth toe nail and wound debridement. 25. Hypertensive diabetic chronic kidney disease. 26. Severe mitral regurgitation with systolic congestive heart failure and cardiomyopathy with ejection fraction of 35%. 27. Monoclonal gammopathy of unknown significance. 28. Episodic confusion and disorientation. 29. Constipation. 30. Insulin-requiring diabetes mellitus. 31. Hypertension. 1. 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 2. Recurrent fever. 3. Tachycardia. 4. Hypertension. 5. Persistent refractory leukocytosis. 6. Normocytic anemia. 7. Status post packed red blood cell transfusion x3. 8. Reactive thrombocytosis. 9. Granulocytosis. 10. Acute kidney injury with chronic kidney disease stage 4. 11. Status post left foot left great toe amputation and metatarsal amputation. 12. Status post left foot second and third toe removal. 13. Left foot wound debridement. 14. Severe peripheral vascular disease. 15. Uncontrolled diabetes mellitus with hyperglycemia and elevated hemoglobin A1c. 16. Transitional confusional and disorientation state. 17. Possible delirium versus toxic metabolic encephalopathy. 18. Hypotension. 1. Pseudomonas aeruginosa, Proteus mirabilis and beta hemolytic group B Streptococcus, left foot diabetic ulceration and gangrene. 2. Status post status post left foot great toe amputation and metatarsal amputation. 3. Status post removal of the second and third toe nail. 4. Status post left foot wound debridement. 5. Severe peripheral vascular disease of the lower extremity with ankle-brachial indexes of less than 1. 6. History of chronic osteomyelitis of the left foot. 7. Normocytic anemia. 8. Refractory leukocytosis, slow resolving. 9. Reactive thrombocytosis. 10. Leukocytosis with granulocytosis. 11. Status post packed red blood cell transfusion x3. 12. Hypertensive and diabetic chronic kidney disease stage III. 13. Uncontrolled diabetes mellitus with hyperglycemia and elevated hemoglobin A1c. 14. Deconditioning. 15. Gait dysfunction. 16. Questionable delirium versus encephalopathy versus transient confusional and disorientation state. 17. History of hyperuricemia and gout. 18. History of poor compliance, noncompliance. 19. Tachycardia. 20. High-grade fever. 21. Transient hypotension. 22. Dilated cardiomyopathy with left ventricular ejection fraction of 35%. 23. Severe mitral and tricuspid regurgitation. 24. Severe peripheral vascular disease of the lower extremity. 1. Sepsis, secondary to left foot diabetic foot ulceration secondary to Proteus mirabilis, Pseudomonas aeruginosa, beta hemolytic group B strep. 2. High-grade fever. 3. Tachycardia. 4. Episodic hypotension. 5. Leukocytosis with granulocytosis. 6. Acute kidney injury with underlying chronic kidney disease stage 4. 7. Uncontrolled non-insulin requiring diabetes mellitus with hyperglycemia and elevated hemoglobin A1c and elevated fructosamine of 329. 8. Episodic disorientation and confusion, possible questionable delirium versus toxic metabolic encephalopathy. 9. Proteinuria, microscopic hematuria, bacteriuria. 10. Monoclonal gammopathy, of unknown significance. 11. Metabolic acidosis. 12. Hypertensive, diabetic, chronic kidney disease stage 3. 13. Severe mitral, tricuspid regurgitation with systolic congestive heart failure and cardiomyopathy with ejection fraction of 35%. 14. Left foot grade 2 amputation, second metatarsal amputation, and third and fourth toe toenail removal and wound debridement. 15. Cardiomyopathy. 16. Severe peripheral vascular disease of the lower extremity. 17. Persistent refractory leukocytosis. 18. Chronic microvascular ischemic disease of the brain and cerebral cortical atrophy of the brain. 19. Gait dysfunction. 20. Deconditioning. 21. Transient confusion state secondary to transient cerebral hypoperfusion and hyperglycemic fluctuations. 1. Status post left foot great toe amputation and second metatarsal amputation and third and fourth digit toenail removal and left foot wound debridement, postop day #1. 2. Chronic nonhealing left foot diabetic foot ulceration and possible gangrene. 3. Fever. 4. Tachycardia. 5. Hypotension. 6. Persistent refractory leukocytosis with granulocytosis. 7. Normocytic anemia, status post packed red blood cell transfusion x3. 8. Uncontrolled diabetes mellitus with hyperglycemia and elevated hemoglobin A1c of 8.6. 9. Hyper fructosemia. 10. Lactic acidosis. 11. Hyperuricemia. 12. Possible iron-deficiency. 13. Elevated C-reactive protein of greater than 15. 14. Hypertriglyceridemia. 15. Proteinuria. 16. Microscopic hematuria. 17. Bacteriuria. 18. Elevated total kappa lambda ratio. 19. Pseudomonas aeruginosa and beta hemolytic strep group B left foot diabetic foot ulceration. 20. Status post packed red blood cell transfusion x3. 21. Left foot cellulitis. 22. Chronic microvascular ischemic disease of the brain and cerebral cortical atrophy of the brain. 23. Sepsis with Pseudomonas aeruginosa and group B Streptococcus beta hemolytic Streptococcus left foot diabetic foot ulcerations and cellulitis. 24. Kidney injury with underlying chronic kidney disease. 25. Hypertensive diabetic chronic kidney disease. 26. Stage III chronic kidney disease secondary to hypertension and vasculopathy. 27. Anemia. 28. Monoclonal gammopathy of unknown significance. 29. Transient and episodic confusion and disorientation, probably secondary to transient cerebral hypoperfusion and uncontrolled diabetes mellitus. 30. Sepsis. 1. Group B Streptococcus and Pseudomonas aeruginosa, left foot diabetic foot ulceration and gangrene and cellulitis. 2. History of chronic osteomyelitis of the left foot. 3. High-grade fever. 4. Questionable sepsis versus systemic inflammatory response syndrome. 5. Tachycardia. 6 Hypotension. 7. Questionable and possible encephalopathy versus toxic metabolic encephalopathy with episodic confusion and disorientation. 8. Type 2 diabetes mellitus. 9. Anemia of chronic disease. 10. Status post packed red blood cell transfusion x2. 11. Gait dysfunction. 12. Deconditioning. 13. Status post left foot big toe amputation,2nd metatarsal amputation, wound debridement and 3rd and 4th toe nail removal. 14. Persistent refractory leukocytosis with granulocytosis 15. Normocytic anemia. 16. Uncontrolled type 2 diabetes mellitus with hyperglycemia. 17. Microvascular ischemic disease of the brain. 18. Cerebral cortical atrophy of the brain. 19. Gait dysfunction with nonweightbearing status of the left foot. 20. Severe peripheral vascular disease of the lower extremity with severe bilateral tibial and distal lower extremities severe occlusive disease with ankle-brachial index is of less than 1. 21. History of hypertension. 22. History of gout and hyperuricemia. 23. History of gouty arthritis. 24. Dilated cardiomyopathy with ejection fraction of 35% with severe mitral and tricuspid regurgitation. 25. Acute kidney injury with underlying chronic kidney disease stage III. 26. Proteinuria and microscopic hematuria. 1. High-grade fever and new fever. 2. Tachycardia. 3. Hypotension. 4. Questionable sepsis versus systemic inflammatory response syndrome with high-grade fever, tachycardia, hypotension. 5. Persistent refractory leukocytosis with granulocytosis. 6. Normocytic anemia. 7. Status post packed red blood cell transfusion x2. 8. Uncontrolled type 2 noninsulin-requiring diabetes mellitus with hyperglycemia. 9. Left foot Pseudomonas aeruginosa, group B Streptococcus with beta-hemolytic left foot, and left foot diabetic ulceration and possible diabetic left foot gangrene. 10. Proteinuria. 11. Microscopic hematuria. 12. Bacteriuria. 13. Left foot group B streptococcal beta-hemolytic and Pseudomonas aeruginosa left foot diabetic foot ulceration. 14. Episodic disorientation and confusion, etiology undetermined. 15. Questionable toxic metabolic encephalopathy. 16. Hyperglycemia secondary to uncontrolled diabetes mellitus. 17. Status post packed red blood cell transfusion x2. 18. Persistent refractory leukocytosis. 19. Left foot diabetic ulceration and diabetic cellulitis. 20. Dilated cardiomyopathy. 21. History of poor compliance and noncompliance. 22. History of hyperuricemia and gout. 23. 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 24. Gait dysfunction. 25. Deconditioning. 1. Left foot diabetic ulceration and nonhealing diabetic ulceration with possible diabetic gangrene of the left foot and great toe and the left foot toes with group B Streptococcus and Pseudomonas aeruginosa, cellulitis and diabetic foot gangrene of the left foot. 2. Uncontrolled diabetes mellitus with elevated hemoglobin A1c. 3. Fever. 4. Questionable sepsis. 5. Tachycardia. 6. Possible sepsis versus systemic inflammatory response syndrome. 7. Fever. 8. Transient hypotension. 9. Dilated cardiomyopathy. 10. Persistent refractory leukocytosis. 11. Normocytic anemia status post packed red blood cell transfusion. 12. Granulocytosis. 13. Acute kidney injury with underlying chronic kidney disease, stage IV. 14. Uncontrolled diabetes mellitus with hyperglycemia and an elevated hemoglobin A1c and hyperfructosemia. 15. History of poor compliance and noncompliance. 16. History of hyperuricemia and gout. 17. Severe peripheral vascular disease. 18. History of severe peripheral vascular disease of the lower extremity. 19. Severe mitral and tricuspid regurgitation. 20. Cardiomyopathy with ejection fraction of around 35%. 21. History of poor compliance. 22. History of chronic osteomyelitis of the left foot and partial amputation of the left foot second toe. 1. Fever. 2. Sinus tachycardia. 3. Pseudomonas nose group. Group B streptococcus group B beta hemolytic left foot diabetic foot ulcerations and cellulitis and gangrene. 4. Severe peripheral vascular disease. 5. Persistent refractory leukocytosis with granulocytosis. 6. Anemia with decreasing hemoglobin/hematocrit. 7. Elevated erythrocyte sedimentation rate of 122. 8. Chronic kidney disease, stage 3. 9. Hyperglycemia secondary to uncontrolled diabetes mellitus with hemoglobin A1c of 8.6 and hyper fructose anemia. 10. Transaminitis. 11. Iron-deficiency anemia. 12. Hypertriglyceridemia. 13. Elevated C-reactive protein of greater than 15. 14. Lactic acidosis. 15. Status post packed red blood cell transfusions x2. 16. Left foot erosive changes. 17. Severe peripheral vascular disease of bilateral popliteal trifurcation and tibial disease with normal resting ankle-brachial indices. 18. Chronic osteomyelitis of the left foot with bony destruction and sclerosis around the first metatarsophalangeal joint and partial amputation of the second proximal phalanx. 19. Severe degenerative joint disease of the left midfoot. 20. Left axis deviation. 21. Acute kidney injury with underlying chronic kidney disease. 22. Metabolic acidosis. 23. Hypertensive diabetic chronic kidney disease stage 3 without proteinuria. 24. Monoclonal gammopathy of unknown significance. 25. Severe mitral, tricuspid regurgitation with cardiomyopathy, left ventricular ejection fraction of 35% to 40%. 26. Left foot diabetic foot ulceration and gangrene. 27. Congestive heart failure with reduced ejection fraction. 28. Nonhealing left foot diabetic ulceration. 29. Sepsis with left foot cellulitis and diabetic foot ulceration with Pseudomonas secondary to Pseudomonas aeruginosa and Streptococcus group B beta hemolytic Streptococcus. 30. Questionable and possible delirium versus encephalopathy. 31. Gait dysfunction. 32. Deconditioning. 33. Constipation. 34. Hypovitaminosis D. 35. Prostatic hypertrophy. 36. Hyperlipidemia. 37. Hyperuricemia. 38. Hyperglycemia. 39. Uncontrolled diabetes mellitus with hyperglycemia. 40. Gait dysfunction. 41. History of poor compliance and noncompliance. 1. Left foot Pseudomonas aeruginosa and group B beta hemolytic strep, left foot diabetic foot ulceration and cellulitis. 2. Sepsis secondary to Pseudomonas aeruginosa and group B beta hemolytic strep, left diabetic foot ulceration and cellulitis. 3. Hypertension. 4. Tachycardia. 5. Anemia. 6. Status post packed red blood cell transfusion one unit. 7. Leukocytosis with granulocytosis. 8. Elevated erythrocyte sedimentation rate of 122. 9. Iron-deficiency. 10. Acute kidney injury with underlying chronic kidney disease, stage IV. 11. Uncontrolled diabetes mellitus with hyperglycemia and elevated hemoglobin A1c of 8.6 and elevated fructose, a mean of 329. 12. Transient lactic acidosis. 13. Transaminitis. 14. Hypertriglyceridemia. 15. Elevated C-reactive protein of greater than 15. 16. Gait dysfunction. 17. Deconditioning. 18. Metabolic acidosis. 19. 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 20. Severe mitral, tricuspid regurgitation and systolic congestive heart failure. 21. Left foot cellulitis and left foot diabetic ulceration. 22. Left diabetic foot ulceration and possible gangrene or pre-gangrenous condition of the left foot toes. 23. Left foot second digit amputation. 24. Peripheral vascular disease. 25. Left foot second toe amputation with cyanosis and mummification of the toes and forefoot of the left foot. 26. Severe tibial disease of the lower extremity. 27. Peripheral vascular disease. 28. Anemia of chronic disease. 29. Bilateral popliteal trifurcation and tibial disease. 30. Left anterior hemiblock. 1. Left foot Pseudomonas aeruginosa and group B Streptococcus beta hemolytic left foot cellulitis and diabetic foot ulcer. 2. Severe peripheral vascular disease of the lower extremity. 3. Normocytic anemia with decreasing hemoglobin. 4. Leukocytosis with granulocytosis. 5. Uncontrolled diabetes mellitus with hyperglycemia. 6. Acute kidney injury with underlying chronic kidney disease stage III/IV. 7. Transaminitis. 8. Probably anemia of chronic kidney disease. 9. Acute kidney injury with underlying chronic kidney disease. 10. Metabolic acidosis. 11. Hypertensive diabetic chronic kidney disease. 12. [id number] mitral regurgitation and [id number] tricuspid regurgitation. 13. Dilated cardiomyopathy with ejection fraction of 35%. 14. Sepsis. 15. Hypertension. 16. Gait dysfunction. 17. Deconditioning. 18. Bilateral lower extremity peripheral vascular disease. 19. History of poor compliance and noncompliance. 20. History of hyperuricemia and gout. 1. Left foot cellulitis versus gangrene versus pregangrenous state. 2. Sepsis. 3. Tachycardia. 4. Transient episodic hypotension. 5. Leukocytosis with granulocytosis 6. Elevated erythrocyte sedimentation rate of 122. 7. Normocytic anemia. 8. Chronic kidney disease stage 4 with acute kidney injury. 9. Uncontrolled noninsulin-requiring diabetes mellitus with hyperglycemia and hemoglobin A1c of 8.6. 10. Possible iron-deficiency. 11. Hypertriglyceridemia. 12. Elevated C-reactive protein of greater than 15. 13. Transient lactic acidosis. 14. Transaminitis. 15. Deconditioning. 16. Gait dysfunction. 17. Anemia with decreasing hemoglobin and hematocrit. 18. Metabolic acidosis. 19. Diabetic hypertensive chronic kidney disease. 20. Chronic kidney disease stage 3 without proteinuria. 21. Severe mitral and tricuspid regurgitation. 22. Systolic congestive heart failure. 23. Dilated ischemic cardiomyopathy, etiology undetermined. 1. Left foot cellulitis with diabetic foot disease and possible abscess versus possible osteomyelitis. 2. History of left foot second toe amputation. 3. Hypertension. 4. Tachycardia. 5. Fever. 6. Poor compliance and noncompliance. 7. Leukocytosis with granulocytosis. 8. Normocytic anemia. 9. Elevated erythrocyte sedimentation rate of 122. 10. Chronic kidney disease, stage IV with acute kidney injury. 11. Transient lactic acidosis. 12. History of hyperuricemia. 13. Hypertriglyceridemia. 14. Aortic calcification. 15. Bilateral lower extremity popliteal trifurcation and tibial peripheral vascular disease. 16. Left foot first metatarsophalangeal joint bony destruction and sclerosis, chronic osteomyelitis. 17. 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 18. 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 19. Sinus tachycardia with left anterior hemiblock. 20. Deconditioning. 21. History of poor compliance. 22. Chronic dilated ischemic cardiomyopathy with ejection fraction of . 23. History of hypertension. 24. History of heart failure with reduced ejection fraction of 35%. 25. Pulmonary hypertension with right ventricular systolic pressure of 40 mmHg. 26. Left ventricular global hypokinesis and moderately impaired left ventricular systolic function. 27. Mild aortic regurgitation. 28. Moderate to severe mitral regurgitation. 29. Moderate tricuspid regurgitation. 30. History of constipation. 31. Hypovitaminosis D. 32. History of iron-deficiency anemia. 33. Prostatic hypertrophy. 34. Insulin-requiring diabetes mellitus. 35. Hyperlipidemia. 36. History of peripheral vascular disease. 37. Hyperuricemia. 1. Left foot diabetic foot ulceration versus left foot abscess versus left foot toe osteomyelitis. 2. Tachycardia. 3. Leukocytosis with granulocytosis. 4. Questionable systemic inflammatory response syndrome. 5. Uncontrolled diabetes mellitus with hyperglycemia. 6. Chronic kidney disease stage IV. 7. Mild transaminitis. 8. History of hypertension. 9. Hyperlipidemia. 10. History of prostatic hypertrophy. 11. History of iron-deficiency anemia. 12. History of hypovitaminosis D. 13. History of dilated cardiomyopathy. 14. History of pulmonary hypertension. 15. History of moderate tricuspid regurgitation and mitral regurgitation. 16. Hyperuricemia. PLAN: At this time, the patient has been ordered repeat labs for the morning. The patient is awaiting further surgical intervention with Vascular Surgery either below-knee amputation or transmetatarsal amputation of the left lower extremity. CURRENT MEDICATIONS: Colace 100 mg three times a day, Dakin's solution to the left foot, ferrous gluconate 324 mg three times a day, Flomax 0.4 mg daily, heparin 5000 subcu every 8 hours, Humalog medium-dose sliding scale coverage, NPH 20 units with breakfast and dinner, meropenem 500 mg IV every 12 hours, MiraLax 17 g twice a day, morphine 2 mg IV every 4 hours p.r.n., Nephro-Sumit one tablet daily, ProAmatine 2.5 mg three times a day, Tylenol 650 mg p.o. suppository every 6 hours p.r.n. At present, the patient has been ordered DVT and GI prophylaxis. The patient is to be continued on the above therapeutic intervention including Colace 100 mg three times a day and meropenem 500 mg IV every 12 hours in addition other medications as per the MAR. Dictated and electronically signed, not read. Niranjan Ling MD MTDD
[2018-12-05] MEDS: Pantoprazole 40 mg EC Tab PO SCH (05:29)
[2018-12-05 07:49] LABS: ALBUMIN 3.8 g/dL (3.0-4.8); BILIRUBIN,DIRECT 0.3 mg/dL (0.0-0.4); CALCIUM 9.6 mg/dL (8.4-10.5)
[2018-12-05] MEDS: Insulin Human NPH 1 UNITS/0.01 ML SC SCH ×2 (08:08→17:04)
[2018-12-05] MEDS: Insulin Lispro (humaLOG) MEDIUM Coverage SC SCH ×3 (08:08→17:05)
--- NOTE | 2018-12-05 08:33 | CP.PCM.PN ---
<Phi Mcnair - Last Filed: 12/05/18 08:28> Subjective - Date & Time of Evaluation Date of Evaluation: 12/05/18 Time of Evaluation: 08:28 - Subjective Subjective: SURGERY NOTE FOR DR. SOSA 73M seen and examined at bedside. Patient resting comfortably. Denies fevers. Admits to pain in the left foot, site of wound and debridement. Objective - Vital Signs/Intake and Output Vital Signs (last 24 hours): Temp Pulse Resp BP Pulse Ox 98.7 F 107 H 18 107/69 97 12/04/18 22:00 12/04/18 22:00 12/04/18 22:00 12/04/18 22:00 12/04/18 22:00 Intake and Output: 12/05/18 12/05/18 06:59 18:59 Intake Total 520 Output Total 300 Balance 220 - Medications Medications: Current Medications Acetaminophen (Tylenol 325mg Tab) 650 mg PO Q6H PRN PRN Reason: Pain, Mild (1-3) Last Admin: 12/04/18 10:24 Dose: 650 mg Acetaminophen (Tylenol 325mg Tab) 650 mg PO Q6 PRN PRN Reason: Fever >100.4 F Dextrose (Dextrose 50% Inj) 0 ml IV STAT PRN; Protocol PRN Reason: Hypoglycemia Protocol Docusate Sodium (Colace) 100 mg PO TID YESICA Last Admin: 12/04/18 17:26 Dose: 100 mg Ferrous Gluconate (Fergon) 324 mg PO TID YESICA Last Admin: 12/04/18 17:26 Dose: 324 mg Heparin Sodium (Porcine) (Heparin) 5,000 units SC Q8 [facility]; Protocol Last Admin: 12/05/18 05:29 Dose: 5,000 units Dextrose (Dextrose 5% In Water 1000 Ml) 1,000 mls @ 0 mls/hr IV .Q0M PRN; Protocol PRN Reason: Hypoglycemia Protocol Meropenem/Sodium Chloride (Merrem Iv 500 Mg/Ns 50 Ml) 500 mg in 50 mls @ 100 mls/hr IVPB Q12 [facility]; Protocol Last Admin: 12/04/18 21:00 Dose: 100 mls/hr Insulin Human Lispro (Humalog Med) 0 units SC AC YESICA; Protocol Last Admin: 12/05/18 08:08 Dose: 3 units Insulin Human NPH (Humulin N) 20 units SC ACBD [facility] Last Admin: 12/05/18 08:08 Dose: 20 units Midodrine (Proamatine) 2.5 mg PO TID [facility] Last Admin: 12/04/18 17:25 Dose: 2.5 mg Morphine Sulfate (Morphine) 2 mg IVP Q4H PRN PRN Reason: Pain, severe (8-10) Last Admin: 12/02/18 11:45 Dose: 2 mg Ondansetron HCl (Zofran Inj) 4 mg IVP Q4H PRN PRN Reason: Nausea/Vomiting Pantoprazole Sodium (Protonix Ec Tab) 40 mg PO 0600 [facility] Last Admin: 12/05/18 05:29 Dose: 40 mg Polyethylene Glycol (Miralax) 17 gm PO BID [facility] Last Admin: 12/04/18 17:27 Dose: Not Given Sodium Hypochlorite (Dakins Solution 0.25%) 20 ml TOP DAILY [facility] Last Admin: 12/04/18 10:20 Dose: 1 applic Tamsulosin HCl (Flomax) 0.4 mg PO DAILY [facility] Last Admin: 12/04/18 10:20 Dose: 0.4 mg Vitamin B Complex/Vit C/Folic Acid (Nephro-Sumit) 1 tab PO 0800 [facility] Last Admin: 12/04/18 08:23 Dose: 1 tab - Labs Labs: 12/03/18 07:30 12/05/18 07:00 PT 14.7 SECONDS (9.4-12.5) H 11/25/18 13:05 INR 1.30 11/25/18 13:05 APTT 26.3 Seconds (26.9-38.3) L 11/25/18 13:05 - Constitutional Appears: Non-toxic, No Acute Distress - Respiratory Exam Respiratory Exam: Clear to Ausculation Bilateral, NORMAL BREATHING PATTERN - Cardiovascular Exam Cardiovascular Exam: REGULAR RHYTHM, +S1, +S2 - GI/Abdominal Exam GI & Abdominal Exam: Soft. absent: Distended, Firm, Guarding, Rigid, Tenderness, Rebound - Extremities Exam Additional comments: left foot - necrotic third digit - granulation tissue on dorsum of foot - s/p amputation of hallux - non healing wound - tender to palpation - Neurological Exam Neurological Exam: Alert, Awake Assessment and Plan - Assessment and Plan (Free Text) Assessment: 73M s/p left hallux/2nd metatarsal amputation POD#5 for non-healing left foot wound Plan: - continue wet to dry dressing Dakin - Will re-evaluate wound tomorrow - Continue IV antibiotics Further recs discuss with Dr. Ian Mcnair, PGY3 <Kain Sosa - Last Filed: 12/09/18 19:27> Objective - Vital Signs/Intake and Output Vital Signs (last 24 hours): Temp Pulse Resp BP Pulse Ox 98.4 F 94 H 20 97/62 L 100 12/09/18 13:44 12/09/18 13:44 12/09/18 13:44 12/09/18 13:44 12/09/18 13:44 Intake and Output: 12/09/18 12/10/18 18:59 06:59 Intake Total 480 Output Total 300 Balance 180 - Medications Medications: Current Medications Acetaminophen (Tylenol 325mg Tab) 650 mg PO Q6H PRN PRN Reason: Pain, Mild (1-3) Last Admin: 12/08/18 09:31 Dose: 650 mg Acetaminophen (Tylenol 325mg Tab) 650 mg PO Q6 PRN PRN Reason: Fever >100.4 F Dextrose (Dextrose 50% Inj) 0 ml IV STAT PRN; Protocol PRN Reason: Hypoglycemia Protocol Dextrose (Dextrose 50% Inj) 0 ml IV STAT PRN; Protocol PRN Reason: Hypoglycemia Protocol Docusate Sodium (Colace) 100 mg PO TID [facility] Last Admin: 12/09/18 18:14 Dose: 100 mg Famotidine (Pepcid) 20 mg PO 1000,2200 [facility] Stop: 12/11/18 10:01 Last Admin: 12/09/18 10:50 Dose: 20 mg Ferrous Gluconate (Fergon) 324 mg PO TID [facility] Last Admin: 12/09/18 18:14 Dose: 324 mg Heparin Sodium (Porcine) (Heparin) 5,000 units SC Q8 [facility]; Protocol Last Admin: 12/09/18 15:31 Dose: 5,000 units Dextrose (Dextrose 5% In Water 1000 Ml) 1,000 mls @ 0 mls/hr IV .Q0M PRN; Protocol PRN Reason: Hypoglycemia Protocol Meropenem/Sodium Chloride (Merrem Iv 500 Mg/Ns 50 Ml) 500 mg in 50 mls @ 100 mls/hr IVPB Q12 [facility]; Protocol Last Admin: 12/09/18 10:51 Dose: 100 mls/hr Dextrose (Dextrose 5% In Water 1000 Ml) 1,000 mls @ 0 mls/hr IV .Q0M PRN; Protocol PRN Reason: Hypoglycemia Protocol Insulin Human Lispro (Humalog Med) 0 units SC AC [facility]; Protocol Last Admin: 12/09/18 17:00 Dose: 1 units Insulin Human NPH (Humulin N) 17 units SC ACBD [facility] Last Admin: 12/09/18 17:03 Dose: 17 unit Midodrine (Proamatine) 5 mg PO TID [facility] Last Admin: 12/09/18 18:14 Dose: 5 mg Nystatin (Nystop Topical Powder) 0 gm TOP BID [facility] Last Admin: 12/09/18 18:17 Dose: 1 appl Ondansetron HCl (Zofran Inj) 4 mg IVP Q4H PRN PRN Reason: Nausea/Vomiting Pantoprazole Sodium (Protonix Ec Tab) 40 mg PO 0600 [facility] Last Admin: 12/09/18 05:37 Dose: 40 mg Polyethylene Glycol (Miralax) 17 gm PO BID [facility] Last Admin: 12/09/18 18:16 Dose: Not Given Sodium Hypochlorite (Dakins Solution 0.25%) 20 ml TOP DAILY [facility] Last Admin: 12/09/18 10:47 Dose: 1 applic Tamsulosin HCl (Flomax) 0.4 mg PO DAILY [facility] Last Admin: 12/09/18 10:49 Dose: 0.4 mg Vitamin B Complex/Vit C/Folic Acid (Nephro-Sumit) 1 tab PO 0800 [facility] Last Admin: 12/09/18 08:17 Dose: 1 tab - Labs Labs: 12/09/18 07:30 12/09/18 07:30 PT 14.7 SECONDS (9.4-12.5) H 11/25/18 13:05 INR 1.30 11/25/18 13:05 APTT 26.3 Seconds (26.9-38.3) L 11/25/18 13:05 Assessment and Plan - Assessment and Plan (Free Text) Plan: Patient was seen, evaluated and examined by me at the bedside. I agree with assessment and plan as stated in the resident's note.
[2018-12-05] MEDS: Multivitamin Vitamin B Complex (Nephro-Vite) Tab PO SCH (09:03)
[2018-12-05] MEDS: MEROPENEM 500 MG in NS 500 MG/50 ML BAG IVPB SCH ×2 (09:03→21:14)
[2018-12-05] MEDS: POLYETHYLENE GLYCOL 3350 17 GM/Dose PACKET PO SCH ×2 (09:04→17:59)
[2018-12-05] MEDS: Dakin's Topical 0.25%-Half Strength (480 ml) TOP SCH (09:05)
--- NOTE | 2018-12-05 14:37 | PN ---
DATE: 12/05/2018 SUBJECTIVE: The patient is in bed in no acute distress, nontoxic. PHYSICAL EXAMINATION: VITAL SIGNS: Temperature is 98, blood pressure is 112/70, respiratory rate of 18. HEENT: Unremarkable. NECK: Supple. LUNGS: Have decreased breath sounds. HEART: Normal S1, S2. ABDOMEN: Soft, nontender. LABORATORY EXAMINATION: Reveals a white count of 10,000, hemoglobin of 10. Chemistries reveals a BUN of 41, creatinine of 2.0 and urinalysis is noted. Proteus and Pseudomonas is growing, which is pansensitive. Review of orders reveals the patient to be on meropenem which requires renewal. ASSESSMENT AND PLAN: This is a 73-year-old male with a left hallux, second metatarsal amputation postoperative day #12, Charcot's foot ulcer with the Proteus and Pseudomonas and currently on meropenem, awaiting for surgical input. Tai Landaverde MD
--- NOTE | 2018-12-05 21:34 | PN ---
DATE: 12/05/2018 SUBJECTIVE: The patient is seen, lying in the bed, in room 575, bed 2. The patient is alert, awake, responsive, confused, disoriented. Overnight nurse's notes were reviewed. The patient was again found to be alert, awake, oriented x2. No other adverse events were documented or notified or called for. PHYSICAL EXAMINATION: VITAL SIGNS: T-max 98.5, heart rate 91, blood pressure 112/76, respirations 18, O2 sat 96%. HEENT: Head examination normocephalic, atraumatic. HEENT examination shows pinkish pale conjunctivae. Anicteric sclerae. No oropharyngeal lesion. NECK: No neck rigidity. CHEST: Kyphosis. LUNGS: Show no audible crackles, rales or wheezing. CARDIOVASCULAR: S1, S2, regular rhythm. Positive systolic murmur at left sternal border, right second intercostal space, left second intercostal space. ABDOMEN: Soft, positive bowel sounds. No palpable hepatosplenomegaly. GENITALIA: Male. RECTAL: Deferred. EXTREMITIES: Show positive dressing of the left foot. No pitting edema. No calf tenderness. No Homans' sign. NEUROLOGIC: The patient is alert, awake, oriented to person and place; disoriented to year, date, month and time. The patient is able to move upper and lower extremities without assistance. Gait examination is not tested. Cranial nerves II-XII limited. DIAGNOSTICS: On 12/05/2018, sodium 137, potassium 5.1, chloride 98, CO2 of 26, BUN 41, creatinine 2, glucose 219, calcium 9.6, phosphorus 3.9, magnesium 2.3. LFTs are within normal limit. IMPRESSION: 1. Left foot great toe and left foot acute osteomyelitis. 2. Non-hemolyzed hyperkalemia. 3. Acute kidney injury and underlying hypertensive/diabetic chronic kidney disease stage 3/4. 4. Leukocytosis with granulocytosis. 5. Anemia. 6. Status post packed red blood cell transfusion x3. 7. Transient confusional state with possible delirium and toxic metabolic encephalopathy. 8. Hypotension. 9. Tachycardia. 10. High-grade fever. 11. Diabetic ulceration of the left foot with acute osteomyelitis of the left foot and toe. 12. Severe peripheral vascular disease of the lower extremity. 13. History of hypertension. 14. History of type 2 diabetes mellitus. 15. History of peripheral vascular disease. 16. History of hyperuricemia and gout. 17. History of [id number] diabetes mellitus. 18. History of poor compliance and noncompliance. 1. Left foot great toe acute osteomyelitis with gangrenous necrosis and gouty tophi. 2. Status post left foot debridement and amputation of the left foot great toe and second metatarsal amputation. 3. Status post debridement of the left foot diabetic foot ulceration and removal of the left foot third and fourth toe nails. 4. Fever. 5. Tachycardia. 6. Persistent leukocytosis with granulocytosis. 7. Normocytic anemia. 8. Status post packed red blood cell transfusion x3. 9. Elevated erythrocyte sedimentation rate of 122. 10. Uncontrolled diabetes mellitus with hyperglycemia and hypoglycemia with hemoglobin A1c of 8.6 and fructosamine of 329. 11. Acute kidney injury with underlying chronic kidney disease stage 3/4. 12. Proteinuria, microscopic hematuria, bacteriuria. 13. 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 14. Proteus mirabilis, Pseudomonas aeruginosa,and beta-hemolytic Streptococcus group B left foot diabetic foot ulceration and acute osteomyelitis. 15. Gait dysfunction. 16. Deconditioning with nonweightbearing status of the left foot. 17. Sepsis with Pseudomonas aeruginosa, Proteus mirabilis and group B Streptococcal left foot acute osteomyelitis, cellulitis and diabetic foot ulceration. 18. Questionable delirium versus toxic metabolic encephalopathy. 19. Constipation. 20. Iron deficiency. 21. Prostatic hypertrophy. 22. Hyperuricemia and gouty arthritis. 23. Hypotension. 1. Left foot great toe acute osteomyelitis with gangrenous necrosis and gouty tophi. 2. Status post left foot debridement and amputation of the left foot great toe and second metatarsal. 3. Status post debridement of the left foot and removal of the left foot third and fourth toe nails. 4. Fever. 5. Tachycardia. 6. Hypotension. 7. Persistent refractory leukocytosis with granulocytosis. 8. Elevated erythrocyte sedimentation rate 222. 9. Acute kidney injury with underlying chronic kidney disease stage III to IV. 10. Uncontrolled insulin-requiring diabetes mellitus with hemoglobin A1c of 8.6 and fructosamine of 329. 11. Lactic acidosis. 12. Elevated C-reactive protein of greater than 15. 13. Hypertriglyceridemia. 14. Decreased HDL of 18. 15. Questionable iron deficiency. 16. Questionable delirium with episodic forgetfulness and disorientation versus toxic metabolic encephalopathy. 17. Proteinuria, microscopic hematuria, and bacteriuria. 18. Questionable monoclonal gammopathy of unknown significance with elevated total kappa/lambda ratio. 19. Left foot great toe Proteus mirabilis, Pseudomonas aeruginosa, and beta hemolytic strep group B osteomyelitis and diabetic foot ulceration. 20. Status post packed red blood cell transfusion x3. 21. Gait dysfunction. 22. Deconditioning. 23. History of gout and hyperuricemia. 24. Acute kidney injury with underlying hypertensive and diabetic chronic kidney disease stage III/IV. 25. Severe mitral and tricuspid regurgitation with systolic congestive heart failure, left ventricle ejection fraction of 35% to 40%. 26. Encephalopathy. 27. Constipation. 28. Prostatic hypertrophy. 1. Acute osteomyelitis of the left foot great toe. 2. Episodic confusion, forgetfulness and disorientation, etiology unclear, questionable delirium versus encephalopathy. 3. Persistent leukocytosis. 4. 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 5. Status post left foot great toe amputation and fifth metatarsal left foot great toe amputation and metatarsal amputation. 6. 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 7. Uncontrolled diabetes mellitus with hypoglycemia. 8. Recurrent high-grade fever. 9. High-grade fever. 10. Tachycardia. 11. Hypotension. 12. History of dilated cardiomyopathy, etiology undetermined. 13. Normocytic anemia, status post packed red blood cell transfusion x3. 14. Persistent refractory leukocytosis with granulocytosis. 15. Uncontrolled diabetes mellitus with hyperglycemia and episodic hypoglycemia. 16. Left foot diabetic foot ulceration and left foot great toe acute osteomyelitis. 17. Severe peripheral vascular disease of the lower extremity. 18. Gait dysfunction. 19. Deconditioning. 20. Noncompliance. 21. History of hypertension, hyperuricemia and gout. 22. Possible monoclonal gammopathy of unknown significance with elevated kappa lambda ratio. 1. Left foot great toe acute osteomyelitis and gangrenous necrosis with gouty tophi with acute gangrenous necrosis and acute osteomyelitis. 2. High-grade fever. 3. Tachycardia. 4. Hypotension. 5. Proteus mirabilis, Pseudomonas aeruginosa and beta hemolytic streptococcus group B left foot great toe osteomyelitis, diabetic foot ulceration and cellulitis. 6. Severe peripheral vascular disease. 7. Refractory leukocytosis. 8. Granulocytosis. 9. Elevated erythrocyte sedimentation rate of 122. 10. Normocytic anemia. 11. Status post packed red blood cell transfusion x3. 12. Uncontrolled insulin-requiring diabetes mellitus with hyperglycemia and hemoglobin A1c of 8.6 and fructosamine of 329. 13. Gait dysfunction secondary to nonweightbearing status of the left foot and toe. 14. Deconditioning. 15. Questionable delirium. 16. Iron-deficiency. 17. Hypertriglyceridemia with decreased high-density lipoprotein. 18. Lactic acidosis. 19. Elevated C-reactive protein no greater than 15. 20. Acute kidney injury with underlying chronic kidney disease, stage 3/4. 21. Proteinuria. 22. Microscopic hematuria, pyuria, bacteriuria. 23. Questionable monoclonal gammopathy of unknown significance with elevated kappa to lambda ratio. 24. Status post left foot great toe amputation and second metatarsal amputation and removal of the third and fourth toe nail and wound debridement. 25. Hypertensive diabetic chronic kidney disease. 26. Severe mitral regurgitation with systolic congestive heart failure and cardiomyopathy with ejection fraction of 35%. 27. Monoclonal gammopathy of unknown significance. 28. Episodic confusion and disorientation. 29. Constipation. 30. Insulin-requiring diabetes mellitus. 31. Hypertension. 1. 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 2. Recurrent fever. 3. Tachycardia. 4. Hypertension. 5. Persistent refractory leukocytosis. 6. Normocytic anemia. 7. Status post packed red blood cell transfusion x3. 8. Reactive thrombocytosis. 9. Granulocytosis. 10. Acute kidney injury with chronic kidney disease stage 4. 11. Status post left foot left great toe amputation and metatarsal amputation. 12. Status post left foot second and third toe removal. 13. Left foot wound debridement. 14. Severe peripheral vascular disease. 15. Uncontrolled diabetes mellitus with hyperglycemia and elevated hemoglobin A1c. 16. Transitional confusional and disorientation state. 17. Possible delirium versus toxic metabolic encephalopathy. 18. Hypotension. 1. Pseudomonas aeruginosa, Proteus mirabilis and beta hemolytic group B Streptococcus, left foot diabetic ulceration and gangrene. 2. Status post status post left foot great toe amputation and metatarsal amputation. 3. Status post removal of the second and third toe nail. 4. Status post left foot wound debridement. 5. Severe peripheral vascular disease of the lower extremity with ankle-brachial indexes of less than 1. 6. History of chronic osteomyelitis of the left foot. 7. Normocytic anemia. 8. Refractory leukocytosis, slow resolving. 9. Reactive thrombocytosis. 10. Leukocytosis with granulocytosis. 11. Status post packed red blood cell transfusion x3. 12. Hypertensive and diabetic chronic kidney disease stage III. 13. Uncontrolled diabetes mellitus with hyperglycemia and elevated hemoglobin A1c. 14. Deconditioning. 15. Gait dysfunction. 16. Questionable delirium versus encephalopathy versus transient confusional and disorientation state. 17. History of hyperuricemia and gout. 18. History of poor compliance, noncompliance. 19. Tachycardia. 20. High-grade fever. 21. Transient hypotension. 22. Dilated cardiomyopathy with left ventricular ejection fraction of 35%. 23. Severe mitral and tricuspid regurgitation. 24. Severe peripheral vascular disease of the lower extremity. 1. Sepsis, secondary to left foot diabetic foot ulceration secondary to Proteus mirabilis, Pseudomonas aeruginosa, beta hemolytic group B strep. 2. High-grade fever. 3. Tachycardia. 4. Episodic hypotension. 5. Leukocytosis with granulocytosis. 6. Acute kidney injury with underlying chronic kidney disease stage 4. 7. Uncontrolled non-insulin requiring diabetes mellitus with hyperglycemia and elevated hemoglobin A1c and elevated fructosamine of 329. 8. Episodic disorientation and confusion, possible questionable delirium versus toxic metabolic encephalopathy. 9. Proteinuria, microscopic hematuria, bacteriuria. 10. Monoclonal gammopathy, of unknown significance. 11. Metabolic acidosis. 12. Hypertensive, diabetic, chronic kidney disease stage 3. 13. Severe mitral, tricuspid regurgitation with systolic congestive heart failure and cardiomyopathy with ejection fraction of 35%. 14. Left foot grade 2 amputation, second metatarsal amputation, and third and fourth toe toenail removal and wound debridement. 15. Cardiomyopathy. 16. Severe peripheral vascular disease of the lower extremity. 17. Persistent refractory leukocytosis. 18. Chronic microvascular ischemic disease of the brain and cerebral cortical atrophy of the brain. 19. Gait dysfunction. 20. Deconditioning. 21. Transient confusion state secondary to transient cerebral hypoperfusion and hyperglycemic fluctuations. 1. Status post left foot great toe amputation and second metatarsal amputation and third and fourth digit toenail removal and left foot wound debridement, postop day #1. 2. Chronic nonhealing left foot diabetic foot ulceration and possible gangrene. 3. Fever. 4. Tachycardia. 5. Hypotension. 6. Persistent refractory leukocytosis with granulocytosis. 7. Normocytic anemia, status post packed red blood cell transfusion x3. 8. Uncontrolled diabetes mellitus with hyperglycemia and elevated hemoglobin A1c of 8.6. 9. Hyper fructosemia. 10. Lactic acidosis. 11. Hyperuricemia. 12. Possible iron-deficiency. 13. Elevated C-reactive protein of greater than 15. 14. Hypertriglyceridemia. 15. Proteinuria. 16. Microscopic hematuria. 17. Bacteriuria. 18. Elevated total kappa lambda ratio. 19. Pseudomonas aeruginosa and beta hemolytic strep group B left foot diabetic foot ulceration. 20. Status post packed red blood cell transfusion x3. 21. Left foot cellulitis. 22. Chronic microvascular ischemic disease of the brain and cerebral cortical atrophy of the brain. 23. Sepsis with Pseudomonas aeruginosa and group B Streptococcus beta hemolytic Streptococcus left foot diabetic foot ulcerations and cellulitis. 24. Kidney injury with underlying chronic kidney disease. 25. Hypertensive diabetic chronic kidney disease. 26. Stage III chronic kidney disease secondary to hypertension and vasculopathy. 27. Anemia. 28. Monoclonal gammopathy of unknown significance. 29. Transient and episodic confusion and disorientation, probably secondary to transient cerebral hypoperfusion and uncontrolled diabetes mellitus. 30. Sepsis. 1. Group B Streptococcus and Pseudomonas aeruginosa, left foot diabetic foot ulceration and gangrene and cellulitis. 2. History of chronic osteomyelitis of the left foot. 3. High-grade fever. 4. Questionable sepsis versus systemic inflammatory response syndrome. 5. Tachycardia. 6 Hypotension. 7. Questionable and possible encephalopathy versus toxic metabolic encephalopathy with episodic confusion and disorientation. 8. Type 2 diabetes mellitus. 9. Anemia of chronic disease. 10. Status post packed red blood cell transfusion x2. 11. Gait dysfunction. 12. Deconditioning. 13. Status post left foot big toe amputation,2nd metatarsal amputation, wound debridement and 3rd and 4th toe nail removal. 14. Persistent refractory leukocytosis with granulocytosis 15. Normocytic anemia. 16. Uncontrolled type 2 diabetes mellitus with hyperglycemia. 17. Microvascular ischemic disease of the brain. 18. Cerebral cortical atrophy of the brain. 19. Gait dysfunction with nonweightbearing status of the left foot. 20. Severe peripheral vascular disease of the lower extremity with severe bilateral tibial and distal lower extremities severe occlusive disease with ankle-brachial index is of less than 1. 21. History of hypertension. 22. History of gout and hyperuricemia. 23. History of gouty arthritis. 24. Dilated cardiomyopathy with ejection fraction of 35% with severe mitral and tricuspid regurgitation. 25. Acute kidney injury with underlying chronic kidney disease stage III. 26. Proteinuria and microscopic hematuria. 1. High-grade fever and new fever. 2. Tachycardia. 3. Hypotension. 4. Questionable sepsis versus systemic inflammatory response syndrome with high-grade fever, tachycardia, hypotension. 5. Persistent refractory leukocytosis with granulocytosis. 6. Normocytic anemia. 7. Status post packed red blood cell transfusion x2. 8. Uncontrolled type 2 noninsulin-requiring diabetes mellitus with hyperglycemia. 9. Left foot Pseudomonas aeruginosa, group B Streptococcus with beta-hemolytic left foot, and left foot diabetic ulceration and possible diabetic left foot gangrene. 10. Proteinuria. 11. Microscopic hematuria. 12. Bacteriuria. 13. Left foot group B streptococcal beta-hemolytic and Pseudomonas aeruginosa left foot diabetic foot ulceration. 14. Episodic disorientation and confusion, etiology undetermined. 15. Questionable toxic metabolic encephalopathy. 16. Hyperglycemia secondary to uncontrolled diabetes mellitus. 17. Status post packed red blood cell transfusion x2. 18. Persistent refractory leukocytosis. 19. Left foot diabetic ulceration and diabetic cellulitis. 20. Dilated cardiomyopathy. 21. History of poor compliance and noncompliance. 22. History of hyperuricemia and gout. 23. 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 24. Gait dysfunction. 25. Deconditioning. 1. Left foot diabetic ulceration and nonhealing diabetic ulceration with possible diabetic gangrene of the left foot and great toe and the left foot toes with group B Streptococcus and Pseudomonas aeruginosa, cellulitis and diabetic foot gangrene of the left foot. 2. Uncontrolled diabetes mellitus with elevated hemoglobin A1c. 3. Fever. 4. Questionable sepsis. 5. Tachycardia. 6. Possible sepsis versus systemic inflammatory response syndrome. 7. Fever. 8. Transient hypotension. 9. Dilated cardiomyopathy. 10. Persistent refractory leukocytosis. 11. Normocytic anemia status post packed red blood cell transfusion. 12. Granulocytosis. 13. Acute kidney injury with underlying chronic kidney disease, stage IV. 14. Uncontrolled diabetes mellitus with hyperglycemia and an elevated hemoglobin A1c and hyperfructosemia. 15. History of poor compliance and noncompliance. 16. History of hyperuricemia and gout. 17. Severe peripheral vascular disease. 18. History of severe peripheral vascular disease of the lower extremity. 19. Severe mitral and tricuspid regurgitation. 20. Cardiomyopathy with ejection fraction of around 35%. 21. History of poor compliance. 22. History of chronic osteomyelitis of the left foot and partial amputation of the left foot second toe. 1. Fever. 2. Sinus tachycardia. 3. Pseudomonas nose group. Group B streptococcus group B beta hemolytic left foot diabetic foot ulcerations and cellulitis and gangrene. 4. Severe peripheral vascular disease. 5. Persistent refractory leukocytosis with granulocytosis. 6. Anemia with decreasing hemoglobin/hematocrit. 7. Elevated erythrocyte sedimentation rate of 122. 8. Chronic kidney disease, stage 3. 9. Hyperglycemia secondary to uncontrolled diabetes mellitus with hemoglobin A1c of 8.6 and hyper fructose anemia. 10. Transaminitis. 11. Iron-deficiency anemia. 12. Hypertriglyceridemia. 13. Elevated C-reactive protein of greater than 15. 14. Lactic acidosis. 15. Status post packed red blood cell transfusions x2. 16. Left foot erosive changes. 17. Severe peripheral vascular disease of bilateral popliteal trifurcation and tibial disease with normal resting ankle-brachial indices. 18. Chronic osteomyelitis of the left foot with bony destruction and sclerosis around the first metatarsophalangeal joint and partial amputation of the second proximal phalanx. 19. Severe degenerative joint disease of the left midfoot. 20. Left axis deviation. 21. Acute kidney injury with underlying chronic kidney disease. 22. Metabolic acidosis. 23. Hypertensive diabetic chronic kidney disease stage 3 without proteinuria. 24. Monoclonal gammopathy of unknown significance. 25. Severe mitral, tricuspid regurgitation with cardiomyopathy, left ventricular ejection fraction of 35% to 40%. 26. Left foot diabetic foot ulceration and gangrene. 27. Congestive heart failure with reduced ejection fraction. 28. Nonhealing left foot diabetic ulceration. 29. Sepsis with left foot cellulitis and diabetic foot ulceration with Pseudomonas secondary to Pseudomonas aeruginosa and Streptococcus group B beta hemolytic Streptococcus. 30. Questionable and possible delirium versus encephalopathy. 31. Gait dysfunction. 32. Deconditioning. 33. Constipation. 34. Hypovitaminosis D. 35. Prostatic hypertrophy. 36. Hyperlipidemia. 37. Hyperuricemia. 38. Hyperglycemia. 39. Uncontrolled diabetes mellitus with hyperglycemia. 40. Gait dysfunction. 41. History of poor compliance and noncompliance. 1. Left foot Pseudomonas aeruginosa and group B beta hemolytic strep, left foot diabetic foot ulceration and cellulitis. 2. Sepsis secondary to Pseudomonas aeruginosa and group B beta hemolytic strep, left diabetic foot ulceration and cellulitis. 3. Hypertension. 4. Tachycardia. 5. Anemia. 6. Status post packed red blood cell transfusion one unit. 7. Leukocytosis with granulocytosis. 8. Elevated erythrocyte sedimentation rate of 122. 9. Iron-deficiency. 10. Acute kidney injury with underlying chronic kidney disease, stage IV. 11. Uncontrolled diabetes mellitus with hyperglycemia and elevated hemoglobin A1c of 8.6 and elevated fructose, a mean of 329. 12. Transient lactic acidosis. 13. Transaminitis. 14. Hypertriglyceridemia. 15. Elevated C-reactive protein of greater than 15. 16. Gait dysfunction. 17. Deconditioning. 18. Metabolic acidosis. 19. 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 20. Severe mitral, tricuspid regurgitation and systolic congestive heart failure. 21. Left foot cellulitis and left foot diabetic ulceration. 22. Left diabetic foot ulceration and possible gangrene or pre-gangrenous condition of the left foot toes. 23. Left foot second digit amputation. 24. Peripheral vascular disease. 25. Left foot second toe amputation with cyanosis and mummification of the toes and forefoot of the left foot. 26. Severe tibial disease of the lower extremity. 27. Peripheral vascular disease. 28. Anemia of chronic disease. 29. Bilateral popliteal trifurcation and tibial disease. 30. Left anterior hemiblock. 1. Left foot Pseudomonas aeruginosa and group B Streptococcus beta hemolytic left foot cellulitis and diabetic foot ulcer. 2. Severe peripheral vascular disease of the lower extremity. 3. Normocytic anemia with decreasing hemoglobin. 4. Leukocytosis with granulocytosis. 5. Uncontrolled diabetes mellitus with hyperglycemia. 6. Acute kidney injury with underlying chronic kidney disease stage III/IV. 7. Transaminitis. 8. Probably anemia of chronic kidney disease. 9. Acute kidney injury with underlying chronic kidney disease. 10. Metabolic acidosis. 11. Hypertensive diabetic chronic kidney disease. 12. [id number] mitral regurgitation and [id number] tricuspid regurgitation. 13. Dilated cardiomyopathy with ejection fraction of 35%. 14. Sepsis. 15. Hypertension. 16. Gait dysfunction. 17. Deconditioning. 18. Bilateral lower extremity peripheral vascular disease. 19. History of poor compliance and noncompliance. 20. History of hyperuricemia and gout. 1. Left foot cellulitis versus gangrene versus pregangrenous state. 2. Sepsis. 3. Tachycardia. 4. Transient episodic hypotension. 5. Leukocytosis with granulocytosis 6. Elevated erythrocyte sedimentation rate of 122. 7. Normocytic anemia. 8. Chronic kidney disease stage 4 with acute kidney injury. 9. Uncontrolled noninsulin-requiring diabetes mellitus with hyperglycemia and hemoglobin A1c of 8.6. 10. Possible iron-deficiency. 11. Hypertriglyceridemia. 12. Elevated C-reactive protein of greater than 15. 13. Transient lactic acidosis. 14. Transaminitis. 15. Deconditioning. 16. Gait dysfunction. 17. Anemia with decreasing hemoglobin and hematocrit. 18. Metabolic acidosis. 19. Diabetic hypertensive chronic kidney disease. 20. Chronic kidney disease stage 3 without proteinuria. 21. Severe mitral and tricuspid regurgitation. 22. Systolic congestive heart failure. 23. Dilated ischemic cardiomyopathy, etiology undetermined. 1. Left foot cellulitis with diabetic foot disease and possible abscess versus possible osteomyelitis. 2. History of left foot second toe amputation. 3. Hypertension. 4. Tachycardia. 5. Fever. 6. Poor compliance and noncompliance. 7. Leukocytosis with granulocytosis. 8. Normocytic anemia. 9. Elevated erythrocyte sedimentation rate of 122. 10. Chronic kidney disease, stage IV with acute kidney injury. 11. Transient lactic acidosis. 12. History of hyperuricemia. 13. Hypertriglyceridemia. 14. Aortic calcification. 15. Bilateral lower extremity popliteal trifurcation and tibial peripheral vascular disease. 16. Left foot first metatarsophalangeal joint bony destruction and sclerosis, chronic osteomyelitis. 17. 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 18. 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 19. Sinus tachycardia with left anterior hemiblock. 20. Deconditioning. 21. History of poor compliance. 22. Chronic dilated ischemic cardiomyopathy with ejection fraction of . 23. History of hypertension. 24. History of heart failure with reduced ejection fraction of 35%. 25. Pulmonary hypertension with right ventricular systolic pressure of 40 mmHg. 26. Left ventricular global hypokinesis and moderately impaired left ventricular systolic function. 27. Mild aortic regurgitation. 28. Moderate to severe mitral regurgitation. 29. Moderate tricuspid regurgitation. 30. History of constipation. 31. Hypovitaminosis D. 32. History of iron-deficiency anemia. 33. Prostatic hypertrophy. 34. Insulin-requiring diabetes mellitus. 35. Hyperlipidemia. 36. History of peripheral vascular disease. 37. Hyperuricemia. 1. Left foot diabetic foot ulceration versus left foot abscess versus left foot toe osteomyelitis. 2. Tachycardia. 3. Leukocytosis with granulocytosis. 4. Questionable systemic inflammatory response syndrome. 5. Uncontrolled diabetes mellitus with hyperglycemia. 6. Chronic kidney disease stage IV. 7. Mild transaminitis. 8. History of hypertension. 9. Hyperlipidemia. 10. History of prostatic hypertrophy. 11. History of iron-deficiency anemia. 12. History of hypovitaminosis D. 13. History of dilated cardiomyopathy. 14. History of pulmonary hypertension. 15. History of moderate tricuspid regurgitation and mitral regurgitation. 16. Hyperuricemia. PLAN: At this time, the patient is to be continued on all the therapeutic intervention as per the MVR of today including the IV antibiotics as per Infectious Disease. We are awaiting for further surgical intervention by the Vascular Surgery whether transmetatarsal amputation versus left below-knee amputation which is probably the best option since the patient has severe left foot osteomyelitis. The patient is to be continued on all therapeutic intervention as per the MAR of today. The patient's family including the daughter and the son has been updated about the patient's condition, diagnostic test results and therapeutic possibilities, all discussed and explained to the patient's family and the patient at length. All questions and concerns answered. The patient's overall prognosis is guarded. Dictated and electronically signed, not read. Niranjan Ling MD [facility]
[2018-12-06] MEDS: Pantoprazole 40 mg EC Tab PO SCH (05:46)
[2018-12-06 07:25] LABS: ALB/GLOB RATIO 0.9 (1.1-1.8); ALBUMIN 3.6 g/dL (3.0-4.8); BILIRUBIN,DIRECT 0.3 mg/dL (0.0-0.4); CALCIUM 9.2 mg/dL (8.4-10.5)
[2018-12-06 08:44] LABS: HEMOGLOBIN 11.4 g/dL (14.0-18.0); MEAN CORPUSCULAR HGB CONC 32.9 g/dl (31.0-37.0); MEAN PLATELET VOLUME 9.8 fl (7.0-11.0); RBC 3.68 10^6/uL (3.5-6.1); RED CELL DISTRIBUTION WIDTH 16.3 % (11.5-14.5); WHITE BLOOD COUNT 11.5 10^3/uL (4.5-11.0)
--- NOTE | 2018-12-06 09:15 | CP.PCM.PN ---
<Marco AMalinda - Last Filed: 12/06/18 09:16> Subjective - Date & Time of Evaluation Date of Evaluation: 12/06/18 Time of Evaluation: 06:45 - Subjective Subjective: General Surgery Dr. Sosa Pt seen and examined @Bedside. No acute events overnight. Pt has no complaints this AM. denies pain in LLE. tolerating diet. Objective - Vital Signs/Intake and Output Vital Signs (last 24 hours): Temp Pulse Resp BP Pulse Ox 98.4 F 113 H 18 98/65 L 97 12/05/18 16:30 12/05/18 16:30 12/05/18 16:30 12/05/18 16:30 12/05/18 16:30 - Medications Medications: Current Medications Acetaminophen (Tylenol 325mg Tab) 650 mg PO Q6H PRN PRN Reason: Pain, Mild (1-3) Last Admin: 12/04/18 10:24 Dose: 650 mg Acetaminophen (Tylenol 325mg Tab) 650 mg PO Q6 PRN PRN Reason: Fever >100.4 F Dextrose (Dextrose 50% Inj) 0 ml IV STAT PRN; Protocol PRN Reason: Hypoglycemia Protocol Docusate Sodium (Colace) 100 mg PO TID [facility] Last Admin: 12/05/18 18:22 Dose: 100 mg Ferrous Gluconate (Fergon) 324 mg PO TID [facility] Last Admin: 12/05/18 18:21 Dose: 324 mg Heparin Sodium (Porcine) (Heparin) 5,000 units SC Q8 [facility]; Protocol Last Admin: 12/05/18 21:14 Dose: 5,000 units Dextrose (Dextrose 5% In Water 1000 Ml) 1,000 mls @ 0 mls/hr IV .Q0M PRN; Protocol PRN Reason: Hypoglycemia Protocol Meropenem/Sodium Chloride (Merrem Iv 500 Mg/Ns 50 Ml) 500 mg in 50 mls @ 100 mls/hr IVPB Q12 [facility]; Protocol Last Admin: 12/05/18 21:14 Dose: 100 mls/hr Insulin Human Lispro (Humalog Med) 0 units SC AC [facility]; Protocol Last Admin: 12/05/18 17:05 Dose: 3 units Insulin Human NPH (Humulin N) 20 units SC ACBD [facility] Last Admin: 12/05/18 17:04 Dose: 20 units Midodrine (Proamatine) 2.5 mg PO TID [facility] Last Admin: 12/05/18 18:22 Dose: 2.5 mg Ondansetron HCl (Zofran Inj) 4 mg IVP Q4H PRN PRN Reason: Nausea/Vomiting Pantoprazole Sodium (Protonix Ec Tab) 40 mg PO 0600 [facility] Last Admin: 12/06/18 05:46 Dose: 40 mg Polyethylene Glycol (Miralax) 17 gm PO BID [facility] Last Admin: 12/05/18 17:59 Dose: Not Given Sodium Hypochlorite (Dakins Solution 0.25%) 20 ml TOP DAILY [facility] Last Admin: 12/05/18 09:05 Dose: Not Given Tamsulosin HCl (Flomax) 0.4 mg PO DAILY [facility] Last Admin: 12/05/18 09:04 Dose: 0.4 mg Vitamin B Complex/Vit C/Folic Acid (Nephro-Sumit) 1 tab PO 0800 [facility] Last Admin: 12/05/18 09:03 Dose: 1 tab - Labs Labs: 12/06/18 08:35 12/06/18 06:10 PT 14.7 SECONDS (9.4-12.5) H 11/25/18 13:05 INR 1.30 11/25/18 13:05 APTT 26.3 Seconds (26.9-38.3) L 11/25/18 13:05 - Constitutional Appears: Non-toxic, No Acute Distress - Head Exam Head Exam: NORMAL INSPECTION - Eye Exam Eye Exam: Normal appearance - ENT Exam ENT Exam: Mucous Membranes Moist - Respiratory Exam Respiratory Exam: NORMAL BREATHING PATTERN. absent: Accessory Muscle Use, Respiratory Distress - Cardiovascular Exam Cardiovascular Exam: absent: Bradycardia, Tachycardia - GI/Abdominal Exam GI & Abdominal Exam: Soft. absent: Distended - Extremities Exam Additional comments: LLE: dorsal and lateral aspect w/ good granulation tissue 3rd and 4th toes w/ dry gangrene deep wound edematous, erythematous. foot warm w/ erythema extending to ankle - Neurological Exam Neurological Exam: Alert, Awake - Psychiatric Exam Psychiatric exam: Normal Affect, Normal Mood - Skin Skin Exam: Dry, Warm Assessment and Plan - Assessment and Plan (Free Text) Assessment: 73 y/o M POD#11 s/p left hallux/2nd metatarsal amputation 2/2 non-healing left foot wound Plan: - cont wet to dry dressing Dakin - pain management PRN - cont IV Abx - PT/OT - definitive surgical management to be determined this week Pt discussed w/ Dr. Ian Strickland PGY3 <Kain Sosa - Last Filed: 12/09/18 19:27> Objective - Vital Signs/Intake and Output Vital Signs (last 24 hours): Temp Pulse Resp BP Pulse Ox 98.4 F 94 H 20 97/62 L 100 12/09/18 13:44 12/09/18 13:44 12/09/18 13:44 12/09/18 13:44 12/09/18 13:44 Intake and Output: 12/09/18 12/10/18 18:59 06:59 Intake Total 480 Output Total 300 Balance 180 - Medications Medications: Current Medications Acetaminophen (Tylenol 325mg Tab) 650 mg PO Q6H PRN PRN Reason: Pain, Mild (1-3) Last Admin: 12/08/18 09:31 Dose: 650 mg Acetaminophen (Tylenol 325mg Tab) 650 mg PO Q6 PRN PRN Reason: Fever >100.4 F Dextrose (Dextrose 50% Inj) 0 ml IV STAT PRN; Protocol PRN Reason: Hypoglycemia Protocol Dextrose (Dextrose 50% Inj) 0 ml IV STAT PRN; Protocol PRN Reason: Hypoglycemia Protocol Docusate Sodium (Colace) 100 mg PO TID [facility] Last Admin: 12/09/18 18:14 Dose: 100 mg Famotidine (Pepcid) 20 mg PO 1000,2200 [facility] Stop: 12/11/18 10:01 Last Admin: 12/09/18 10:50 Dose: 20 mg Ferrous Gluconate (Fergon) 324 mg PO TID [facility] Last Admin: 12/09/18 18:14 Dose: 324 mg Heparin Sodium (Porcine) (Heparin) 5,000 units SC Q8 [facility]; Protocol Last Admin: 12/09/18 15:31 Dose: 5,000 units Dextrose (Dextrose 5% In Water 1000 Ml) 1,000 mls @ 0 mls/hr IV .Q0M PRN; Protocol PRN Reason: Hypoglycemia Protocol Meropenem/Sodium Chloride (Merrem Iv 500 Mg/Ns 50 Ml) 500 mg in 50 mls @ 100 mls/hr IVPB Q12 [facility]; Protocol Last Admin: 12/09/18 10:51 Dose: 100 mls/hr Dextrose (Dextrose 5% In Water 1000 Ml) 1,000 mls @ 0 mls/hr IV .Q0M PRN; Protocol PRN Reason: Hypoglycemia Protocol Insulin Human Lispro (Humalog Med) 0 units SC AC [facility]; Protocol Last Admin: 12/09/18 17:00 Dose: 1 units Insulin Human NPH (Humulin N) 17 units SC ACBD [facility] Last Admin: 12/09/18 17:03 Dose: 17 unit Midodrine (Proamatine) 5 mg PO TID [facility] Last Admin: 12/09/18 18:14 Dose: 5 mg Nystatin (Nystop Topical Powder) 0 gm TOP BID [facility] Last Admin: 12/09/18 18:17 Dose: 1 appl Ondansetron HCl (Zofran Inj) 4 mg IVP Q4H PRN PRN Reason: Nausea/Vomiting Pantoprazole Sodium (Protonix Ec Tab) 40 mg PO 0600 [facility] Last Admin: 12/09/18 05:37 Dose: 40 mg Polyethylene Glycol (Miralax) 17 gm PO BID [facility] Last Admin: 12/09/18 18:16 Dose: Not Given Sodium Hypochlorite (Dakins Solution 0.25%) 20 ml TOP DAILY [facility] Last Admin: 12/09/18 10:47 Dose: 1 applic Tamsulosin HCl (Flomax) 0.4 mg PO DAILY [facility] Last Admin: 12/09/18 10:49 Dose: 0.4 mg Vitamin B Complex/Vit C/Folic Acid (Nephro-Sumit) 1 tab PO 0800 [facility] Last Admin: 12/09/18 08:17 Dose: 1 tab - Labs Labs: 12/09/18 07:30 12/09/18 07:30 PT 14.7 SECONDS (9.4-12.5) H 11/25/18 13:05 INR 1.30 11/25/18 13:05 APTT 26.3 Seconds (26.9-38.3) L 11/25/18 13:05 Assessment and Plan - Assessment and Plan (Free Text) Plan: Patient was seen, evaluated and examined by me at the bedside. I agree with assessment and plan as stated in the resident's note.
[2018-12-06] MEDS: MEROPENEM 500 MG in NS 500 MG/50 ML BAG IVPB SCH ×2 (10:06→21:50)
[2018-12-06] MEDS: Multivitamin Vitamin B Complex (Nephro-Vite) Tab PO SCH (10:07)
[2018-12-06] MEDS: Dakin's Topical 0.25%-Half Strength (480 ml) TOP SCH (10:08)
[2018-12-06] MEDS: POLYETHYLENE GLYCOL 3350 17 GM/Dose PACKET PO SCH ×2 (10:08→18:49)
[2018-12-06] MEDS: Insulin Human NPH 1 UNITS/0.01 ML SC SCH ×2 (10:09→18:48)
--- NOTE | 2018-12-06 10:09 | CP.PCM.PN ---
<Sylwia Chambers - Last Filed: 12/06/18 11:54> Subjective - Date & Time of Evaluation Date of Evaluation: 12/06/18 Time of Evaluation: 10:06 - Subjective Subjective: Sylwia Chambers DO, PGY-2: Progress Note for Dr. Ling Patient was seem and examined at bedside. He reports having good pain control of the left foot. He denies having fever or chills. He reports eating all his meals. No adverse events noted overnight. Objective - Vital Signs/Intake and Output Vital Signs (last 24 hours): Temp Pulse Resp BP Pulse Ox 98.4 F 113 H 18 98/65 L 97 12/05/18 16:30 12/05/18 16:30 12/05/18 16:30 12/05/18 16:30 12/05/18 16:30 - Medications Medications: Current Medications Acetaminophen (Tylenol 325mg Tab) 650 mg PO Q6H PRN PRN Reason: Pain, Mild (1-3) Last Admin: 12/04/18 10:24 Dose: 650 mg Acetaminophen (Tylenol 325mg Tab) 650 mg PO Q6 PRN PRN Reason: Fever >100.4 F Dextrose (Dextrose 50% Inj) 0 ml IV STAT PRN; Protocol PRN Reason: Hypoglycemia Protocol Docusate Sodium (Colace) 100 mg PO TID [facility] Last Admin: 12/05/18 18:22 Dose: 100 mg Ferrous Gluconate (Fergon) 324 mg PO TID [facility] Last Admin: 12/05/18 18:21 Dose: 324 mg Heparin Sodium (Porcine) (Heparin) 5,000 units SC Q8 [facility]; Protocol Last Admin: 12/05/18 21:14 Dose: 5,000 units Dextrose (Dextrose 5% In Water 1000 Ml) 1,000 mls @ 0 mls/hr IV .Q0M PRN; Protocol PRN Reason: Hypoglycemia Protocol Meropenem/Sodium Chloride (Merrem Iv 500 Mg/Ns 50 Ml) 500 mg in 50 mls @ 100 mls/hr IVPB Q12 [facility]; Protocol Last Admin: 12/05/18 21:14 Dose: 100 mls/hr Insulin Human Lispro (Humalog Med) 0 units SC AC [facility]; Protocol Last Admin: 12/05/18 17:05 Dose: 3 units Insulin Human NPH (Humulin N) 20 units SC ACBD [facility] Last Admin: 12/05/18 17:04 Dose: 20 units Midodrine (Proamatine) 2.5 mg PO TID [facility] Last Admin: 12/05/18 18:22 Dose: 2.5 mg Ondansetron HCl (Zofran Inj) 4 mg IVP Q4H PRN PRN Reason: Nausea/Vomiting Pantoprazole Sodium (Protonix Ec Tab) 40 mg PO 0600 [facility] Last Admin: 12/06/18 05:46 Dose: 40 mg Polyethylene Glycol (Miralax) 17 gm PO BID [facility] Last Admin: 12/05/18 17:59 Dose: Not Given Sodium Hypochlorite (Dakins Solution 0.25%) 20 ml TOP DAILY [facility] Last Admin: 12/05/18 09:05 Dose: Not Given Tamsulosin HCl (Flomax) 0.4 mg PO DAILY [facility] Last Admin: 12/05/18 09:04 Dose: 0.4 mg Vitamin B Complex/Vit C/Folic Acid (Nephro-Sumit) 1 tab PO 0800 [facility] Last Admin: 12/05/18 09:03 Dose: 1 tab - Labs Labs: 12/06/18 08:35 12/06/18 06:10 PT 14.7 SECONDS (9.4-12.5) H 11/25/18 13:05 INR 1.30 11/25/18 13:05 APTT 26.3 Seconds (26.9-38.3) L 11/25/18 13:05 - Constitutional Appears: Non-toxic, No Acute Distress - Head Exam Head Exam: ATRAUMATIC, NORMOCEPHALIC - Eye Exam Eye Exam: EOMI, Normal appearance - ENT Exam ENT Exam: Mucous Membranes Moist - Neck Exam Neck Exam: Normal Inspection - Respiratory Exam Respiratory Exam: Clear to Ausculation Bilateral, NORMAL BREATHING PATTERN. absent: Accessory Muscle Use - Cardiovascular Exam Cardiovascular Exam: RRR, +S1, +S2 - GI/Abdominal Exam GI & Abdominal Exam: Soft, Normal Bowel Sounds - Extremities Exam Extremities Exam: absent: Calf Tenderness Additional comments: left foot in dressing, appears clean - Neurological Exam Neurological Exam: Alert, Awake, Oriented x3 - Psychiatric Exam Psychiatric exam: Normal Affect, Normal Mood Assessment and Plan - Assessment and Plan (Free Text) Assessment: 73 year old male with a past medical history of atrial fibrillation, gout, BPH, and DM II who [place] [facility] [place] chronic non-healing left foot ulcer. 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 - Surgery is following with plan to TBD this week - Cilostazol 50 mg BID - Meropenem 500 q12h - Morphine 2 mg q4h PRN for severe pain - ID is following 2) Atrial fibrillation - Metoprolol 25 mg q8h [facility] 3) Hypotension - Midodrine 2.5 mg TID 4) DM II - NPH 20 units ACBD - ISS Lispro (medium) - Hypoglycemia protocil instituted 5) EMIL on CKD - Gentle NS - Nephrology is following - Nephrovite 1 tab 0800 6) Gout - Allopurinol 100 mg daily 7) BPH - Flomax 0.4 mg 8) CAD - Aspirin 81 mg - Atorvastatin 20 mg DIN 9) Constipation - Docusate 100 mg TID 10) GI/DVT prophylaxis - Protonix 40 mg - Heparin 5,000 units q8 11) Persistent Leukocytosis, unknown - Flow cytometry, plasma - Alkaline phosphatase isoenzymes - reticulocyte count ordered Case was reviewed and discussed with attending physician, Dr. Ling <Niranjan Ling - Last Filed: 12/13/18 14:26> Objective - Vital Signs/Intake and Output Vital Signs (last 24 hours): Temp Pulse Resp BP Pulse Ox 98.3 F 94 H 17 93/57 L 99 12/12/18 14:00 12/12/18 14:00 12/12/18 14:00 12/12/18 14:00 12/12/18 14:00 - Medications Medications: Current Medications Acetaminophen (Tylenol 325mg Tab) 650 mg PO Q6 PRN PRN Reason: TEMP>=99.5F Last Admin: 12/12/18 22:42 Dose: 650 mg Acetaminophen (Tylenol 650 Mg Supp) 650 mg RC Q6H PRN PRN Reason: TEMP>=99.5F Dextrose (Dextrose 50% Inj) 0 ml IV STAT PRN; Protocol PRN Reason: Hypoglycemia Protocol Docusate Sodium (Colace) 100 mg PO TID [facility] Last Admin: 12/13/18 10:27 Dose: 100 mg Ferrous Gluconate (Fergon) 324 mg PO TID [facility] Last Admin: 12/13/18 10:28 Dose: 324 mg Heparin Sodium (Porcine) (Heparin) 5,000 units SC Q8 [facility]; Protocol Last Admin: 12/13/18 05:03 Dose: 5,000 units Dextrose (Dextrose 5% In Water 1000 Ml) 1,000 mls @ 0 mls/hr IV .Q0M PRN; Pr otocol PRN Reason: Hypoglycemia Protocol Insulin Human Lispro (Humalog Med) 0 units SC AC [facility]; Protocol Last Admin: 12/13/18 12:48 Dose: 5 units Insulin Human NPH (Humulin N) 17 units SC ACBD [facility] Last Admin: 12/13/18 10:28 Dose: 17 unit Metoclopramide HCl (Reglan) 10 mg IV ONCE PRN PRN Reason: Nausea/Vomiting Midodrine (Proamatine) 10 mg PO TID [facility] Last Admin: 12/13/18 10:28 Dose: 10 mg Nystatin (Nystop Topical Powder) 0 gm TOP BID [facility] Last Admin: 12/13/18 10:31 Dose: 1 appl Ondansetron HCl (Zofran Inj) 4 mg IVP Q4H PRN PRN Reason: Nausea/Vomiting Pantoprazole Sodium (Protonix Ec Tab) 40 mg PO 0600 [facility] Last Admin: 12/13/18 05:03 Dose: 40 mg Polyethylene Glycol (Miralax) 17 gm PO BID [facility] Last Admin: 12/13/18 10:28 Dose: 17 gm Tamsulosin HCl (Flomax) 0.4 mg PO DAILY [facility] Last Admin: 12/13/18 10:28 Dose: 0.4 mg Vitamin B Complex/Vit C/Folic Acid (Nephro-Sumit) 1 tab PO 0800 [facility] Last Admin: 12/13/18 10:28 Dose: 1 tab - Labs Labs: 12/13/18 07:00 12/13/18 07:00 PT 12.6 SECONDS (9.4-12.5) H 12/10/18 13:10 INR 1.12 12/10/18 13:10 APTT 30.3 Seconds (26.9-38.3) 12/10/18 13:10 Attending/Attestation - Attestation I have personally seen and examined this patient.: Yes I have fully participated in the care of the patient.: Yes I have reviewed all pertinent clinical information, including history, physical exam and plan: Yes Notes (Text): Please see/read my dictated notes.
[2018-12-06] MEDS: Insulin Lispro (humaLOG) MEDIUM Coverage SC SCH ×3 (10:10→18:47)
--- NOTE | 2018-12-06 12:17 | CP.PCM.PN ---
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 stable renal fxn Hypertension control with meds as ordered. Maintain hemodynamics stable. Avoid hypotension. Patient not on ACEI/ARB due to EMIL and hyperkalemia tendency. consider to add once stable. Monitor Input/Output, daily weights and renal function with basic metabolic panel continue with iron and MVI. PRBC as needed. dose of aransep 40 mcg weekly held as Hb 11.2. K/L ratio remains high at 3.6. pending hematology eval vit d can be changed to once a month as last level 41 continue with flomax can give IVF as needed plan for TMA as per podiatry/surgery Dose meds/antibiotics for reduced GFR. Avoid fleets enema/magnesium based laxatives. Avoid nephrotoxins/NSAIDs/ iodinated contrast (unless needed emergently) Glycemic control Further work up/management as per primary team Thanks for allowing me to participate in care of your patient. Will follow patient with you. Please call if any Qs. had d/w team and son Dr Anjum Padron Office: [phone] Chief Complaint; Foot ulcer Reason for consult: Acute Kidney Injury HPI: Pt is a 73 M with hx of diabetes Mellitus (30 years), hypertension (years) PVD, Gout CKD 3 with baseline cr 1.8-1.9 presented with complaints of foot ulcer, being managed for cellulitis. seen for EMIL and pt also with PVD Denies OTC/herbal meds or NSAIDs. No recent iodinated contrast exposure. Noted obvious episodes of low BP. pt still not aware about kidney disease in past ROS: noted overnight events Cardiovascular: No chest pain. Pulmonary: No shortness of breath Gastrointestinal: denies abdominal pain No nausea. No vomiting. Genitourinary: No pain while urinating. Denies blood in urine. All other negative except as mentioned in HPI. per son, pt refused to go for outpt follow ups Physical Examination: General Appearance: Comfortable, in no acute respiratory distress, co-operative . Vitals reviewed and noted as below Head; Atraumatic, normocephalic ENT: no ulcers no thrush. Tongue is midline. Oropharynx: no rash or ulcers. EYES: Pupils are equal, round and reactive to light accommodation. Eye muscles and extra-ocular movement intact. Sclera is anicteric. Neck; supple no lymphadenopathy, no thyromegaly or bruit Lungs: Normal respiratory rate/effort. Breath sounds bilateral slight reduced at bases Heart: Incr rate. s1s2 normal. No rub or gallop. Extremities: no edema. No varicose veins. left foot in dressing Neurological: Patient is alert, awake and oriented to person, place and time. No focal deficit. Strength bilateral appropriate and equal Skin: Warm and dry. Normal turgor. No rash. Palpitation: Normal elasticity for age Abdomen: Abdomen is soft. Bowel sounds +. There is no abdominal tenderness, no guarding/rigidity no organomegaly Psych: lack insight and has normal affect/mood MSK: no joint tenderness or swelling. Digits and nails normal, no deformity : kidney or bladder not palpable. Labs/imaging reviewed. Past medical history, past surgical history, family history, social history, allergy reviewed and noted as below Family hx: no hx of CKD. Rest non-contributory Phos 3.5 TSAT 13% Vit D 41 PTH 49 LDL 103 kappa/lambda 3.4 uric acid 7.5 renal cyst left side Objective - Vital Signs/Intake and Output Vital Signs (last 24 hours): Temp Pulse Resp BP Pulse Ox 98.4 F 113 H 18 98/65 L 97 12/05/18 16:30 12/05/18 16:30 12/05/18 16:30 12/05/18 16:30 12/05/18 16:30 - Medications Medications: Current Medications Acetaminophen (Tylenol 325mg Tab) 650 mg PO Q6H PRN PRN Reason: Pain, Mild (1-3) Last Admin: 12/04/18 10:24 Dose: 650 mg Acetaminophen (Tylenol 325mg Tab) 650 mg PO Q6 PRN PRN Reason: Fever >100.4 F Dextrose (Dextrose 50% Inj) 0 ml IV STAT PRN; Protocol PRN Reason: Hypoglycemia Protocol Docusate Sodium (Colace) 100 mg PO TID [facility] Last Admin: 12/06/18 10:07 Dose: 100 mg Ferrous Gluconate (Fergon) 324 mg PO TID [facility] Last Admin: 12/06/18 10:07 Dose: 324 mg Heparin Sodium (Porcine) (Heparin) 5,000 units SC Q8 [facility]; Protocol Last Admin: 12/05/18 21:14 Dose: 5,000 units Dextrose (Dextrose 5% In Water 1000 Ml) 1,000 mls @ 0 mls/hr IV .Q0M PRN; Protocol PRN Reason: Hypoglycemia Protocol Meropenem/Sodium Chloride (Merrem Iv 500 Mg/Ns 50 Ml) 500 mg in 50 mls @ 100 mls/hr IVPB Q12 [facility]; Protocol Last Admin: 12/06/18 10:06 Dose: 100 mls/hr Insulin Human Lispro (Humalog Med) 0 units SC AC [facility]; Protocol Last Admin: 12/06/18 10:10 Dose: 3 units Insulin Human NPH (Humulin N) 20 units SC ACBD [facility] Last Admin: 12/06/18 10:09 Dose: 20 units Midodrine (Proamatine) 2.5 mg PO TID [facility] Last Admin: 12/06/18 10:07 Dose: 2.5 mg Ondansetron HCl (Zofran Inj) 4 mg IVP Q4H PRN PRN Reason: Nausea/Vomiting Pantoprazole Sodium (Protonix Ec Tab) 40 mg PO 0600 [facility] Last Admin: 12/06/18 05:46 Dose: 40 mg Polyethylene Glycol (Miralax) 17 gm PO BID [facility] Last Admin: 12/06/18 10:08 Dose: 17 gm Sodium Hypochlorite (Dakins Solution 0.25%) 20 ml TOP DAILY [facility] Last Admin: 12/06/18 10:08 Dose: 1 applic Tamsulosin HCl (Flomax) 0.4 mg PO DAILY [facility] Last Admin: 12/06/18 10:07 Dose: 0.4 mg Vitamin B Complex/Vit C/Folic Acid (Nephro-Sumit) 1 tab PO 0800 [facility] Last Admin: 12/06/18 10:07 Dose: 1 tab - Labs Labs: 12/06/18 08:35 12/06/18 06:10 PT 14.7 SECONDS (9.4-12.5) H 11/25/18 13:05 INR 1.30 11/25/18 13:05 APTT 26.3 Seconds (26.9-38.3) L 11/25/18 13:05
--- NOTE | 2018-12-06 12:32 | CP.PCM.PCO ---
Physician Communication Note - Physician Communication Note Physician Communication Note: OR pending
--- NOTE | 2018-12-06 13:22 | PN ---
DATE: 12/06/2018 SUBJECTIVE: The patient is seen in room 575, bed 2. Overnight nurse's notes were reviewed. The patient had episodes of questionable disorientation probably secondary to intermittent language barrier. PHYSICAL EXAMINATION: GENERAL: Text. VITAL SIGNS: T-max 98.4, heart rate 113, blood pressure 98/65, respirations 18, O2 sat 97%. HEENT: Head is normocephalic, atraumatic. HEENT examination shows pinkish pale conjunctivae. Dry oral mucosa. NECK: No neck rigidity. CHEST: Kyphosis. CARDIOPULMONARY: S1, S2, regular rhythm. LUNGS: No audible crackle, rales or wheezing. ABDOMEN: Soft, positive bowel sounds. No palpable hepatosplenomegaly. GENITALIA: Male. RECTAL: deferred. EXTREMITIES: Shows positive left foot dressing. No pitting edema. No calf tenderness. No Homans' sign. NEUROLOGIC: The patient is alert, awake, responsive. The patient is able to move upper and lower extremity without assistance. Gait examination is not tested. VASCULAR: Decreased pulses. DIAGNOSTICS DATA: On 12/06/2018, sodium 135, potassium 4.8, chloride 96, CO2 of 29, BUN 45, creatinine 2.2, glucose 198, calcium 9.2, phosphorus 4.1, magnesium 2.2. LFTs are within normal limits. IMPRESSION: 1. Left foot great toe and left foot acute osteomyelitis secondary to Pseudomonas aeruginosa, Proteus mirabilis and beta hemolytic group B strep. 2. Severe peripheral vascular disease of the lower extremity. 3. Refractory slow resolving leukocytosis with granulocytosis. 4. Normocytic anemia with decreasing hemoglobin and hematocrit. 5. Status post packed red blood cell transfusion. 6. Uncontrolled diabetes mellitus with hyperglycemia and elevated hemoglobin A1c. 7. Severe peripheral vascular disease of the lower extremity. 8. Acute kidney injury with underlying hypertensive diabetic chronic kidney disease. 9. Normocytic anemia, status post packed red blood cell transfusion x2. 10. Gouty tophi and history of gouty arthritis and hyperuricemia. 11. History of hypertension. 12. Presently hypotension. 13. Tachycardia. 14. Dilated cardiomyopathy with left ventricle ejection fraction around 35%. 15. Severe tricuspid and mitral regurgitation. 16. History of severe noncompliance and poor compliance. 17. Severe peripheral vascular disease. 18. Gait dysfunction. 19. Deconditioning. 20. Transient confusional state versus delirium versus encephalopathy secondary to underlying multiple comorbidity. 21. Gait dysfunction with nonweightbearing status of the left foot. 22. Status post left foot great toe amputation and metatarsal amputation and debridement of the left foot wound and removal of the left foot second and third toe. 1. Left foot great toe and left foot acute osteomyelitis. 2. Non-hemolyzed hyperkalemia. 3. Acute kidney injury and underlying hypertensive/diabetic chronic kidney disease stage 3/4. 4. Leukocytosis with granulocytosis. 5. Anemia. 6. Status post packed red blood cell transfusion x3. 7. Transient confusional state with possible delirium and toxic metabolic encephalopathy. 8. Hypotension. 9. Tachycardia. 10. High-grade fever. 11. Diabetic ulceration of the left foot with acute osteomyelitis of the left foot and toe. 12. Severe peripheral vascular disease of the lower extremity. 13. History of hypertension. 14. History of type 2 diabetes mellitus. 15. History of peripheral vascular disease. 16. History of hyperuricemia and gout. 17. History of [id number] diabetes mellitus. 18. History of poor compliance and noncompliance. 1. Left foot great toe acute osteomyelitis with gangrenous necrosis and gouty tophi. 2. Status post left foot debridement and amputation of the left foot great toe and second metatarsal amputation. 3. Status post debridement of the left foot diabetic foot ulceration and removal of the left foot third and fourth toe nails. 4. Fever. 5. Tachycardia. 6. Persistent leukocytosis with granulocytosis. 7. Normocytic anemia. 8. Status post packed red blood cell transfusion x3. 9. Elevated erythrocyte sedimentation rate of 122. 10. Uncontrolled diabetes mellitus with hyperglycemia and hypoglycemia with hemoglobin A1c of 8.6 and fructosamine of 329. 11. Acute kidney injury with underlying chronic kidney disease stage 3/4. 12. Proteinuria, microscopic hematuria, bacteriuria. 13. 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 14. Proteus mirabilis, Pseudomonas aeruginosa,and beta-hemolytic Streptococcus group B left foot diabetic foot ulceration and acute osteomyelitis. 15. Gait dysfunction. 16. Deconditioning with nonweightbearing status of the left foot. 17. Sepsis with Pseudomonas aeruginosa, Proteus mirabilis and group B Streptococcal left foot acute osteomyelitis, cellulitis and diabetic foot ulceration. 18. Questionable delirium versus toxic metabolic encephalopathy. 19. Constipation. 20. Iron deficiency. 21. Prostatic hypertrophy. 22. Hyperuricemia and gouty arthritis. 23. Hypotension. 1. Left foot great toe acute osteomyelitis with gangrenous necrosis and gouty tophi. 2. Status post left foot debridement and amputation of the left foot great toe and second metatarsal. 3. Status post debridement of the left foot and removal of the left foot third and fourth toe nails. 4. Fever. 5. Tachycardia. 6. Hypotension. 7. Persistent refractory leukocytosis with granulocytosis. 8. Elevated erythrocyte sedimentation rate 222. 9. Acute kidney injury with underlying chronic kidney disease stage III to IV. 10. Uncontrolled insulin-requiring diabetes mellitus with hemoglobin A1c of 8.6 and fructosamine of 329. 11. Lactic acidosis. 12. Elevated C-reactive protein of greater than 15. 13. Hypertriglyceridemia. 14. Decreased HDL of 18. 15. Questionable iron deficiency. 16. Questionable delirium with episodic forgetfulness and disorientation versus toxic metabolic encephalopathy. 17. Proteinuria, microscopic hematuria, and bacteriuria. 18. Questionable monoclonal gammopathy of unknown significance with elevated total kappa/lambda ratio. 19. Left foot great toe Proteus mirabilis, Pseudomonas aeruginosa, and beta hemolytic strep group B osteomyelitis and diabetic foot ulceration. 20. Status post packed red blood cell transfusion x3. 21. Gait dysfunction. 22. Deconditioning. 23. History of gout and hyperuricemia. 24. Acute kidney injury with underlying hypertensive and diabetic chronic kidney disease stage III/IV. 25. Severe mitral and tricuspid regurgitation with systolic congestive heart failure, left ventricle ejection fraction of 35% to 40%. 26. Encephalopathy. 27. Constipation. 28. Prostatic hypertrophy. 1. Acute osteomyelitis of the left foot great toe. 2. Episodic confusion, forgetfulness and disorientation, etiology unclear, questionable delirium versus encephalopathy. 3. Persistent leukocytosis. 4. 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 5. Status post left foot great toe amputation and fifth metatarsal left foot great toe amputation and metatarsal amputation. 6. 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 7. Uncontrolled diabetes mellitus with hypoglycemia. 8. Recurrent high-grade fever. 9. High-grade fever. 10. Tachycardia. 11. Hypotension. 12. History of dilated cardiomyopathy, etiology undetermined. 13. Normocytic anemia, status post packed red blood cell transfusion x3. 14. Persistent refractory leukocytosis with granulocytosis. 15. Uncontrolled diabetes mellitus with hyperglycemia and episodic hypoglycemia. 16. Left foot diabetic foot ulceration and left foot great toe acute osteomyelitis. 17. Severe peripheral vascular disease of the lower extremity. 18. Gait dysfunction. 19. Deconditioning. 20. Noncompliance. 21. History of hypertension, hyperuricemia and gout. 22. Possible monoclonal gammopathy of unknown significance with elevated kappa lambda ratio. 1. Left foot great toe acute osteomyelitis and gangrenous necrosis with gouty tophi with acute gangrenous necrosis and acute osteomyelitis. 2. High-grade fever. 3. Tachycardia. 4. Hypotension. 5. Proteus mirabilis, Pseudomonas aeruginosa and beta hemolytic streptococcus group B left foot great toe osteomyelitis, diabetic foot ulceration and cellulitis. 6. Severe peripheral vascular disease. 7. Refractory leukocytosis. 8. Granulocytosis. 9. Elevated erythrocyte sedimentation rate of 122. 10. Normocytic anemia. 11. Status post packed red blood cell transfusion x3. 12. Uncontrolled insulin-requiring diabetes mellitus with hyperglycemia and hemoglobin A1c of 8.6 and fructosamine of 329. 13. Gait dysfunction secondary to nonweightbearing status of the left foot and toe. 14. Deconditioning. 15. Questionable delirium. 16. Iron-deficiency. 17. Hypertriglyceridemia with decreased high-density lipoprotein. 18. Lactic acidosis. 19. Elevated C-reactive protein no greater than 15. 20. Acute kidney injury with underlying chronic kidney disease, stage 3/4. 21. Proteinuria. 22. Microscopic hematuria, pyuria, bacteriuria. 23. Questionable monoclonal gammopathy of unknown significance with elevated kappa to lambda ratio. 24. Status post left foot great toe amputation and second metatarsal amputation and removal of the third and fourth toe nail and wound debridement. 25. Hypertensive diabetic chronic kidney disease. 26. Severe mitral regurgitation with systolic congestive heart failure and cardiomyopathy with ejection fraction of 35%. 27. Monoclonal gammopathy of unknown significance. 28. Episodic confusion and disorientation. 29. Constipation. 30. Insulin-requiring diabetes mellitus. 31. Hypertension. 1. 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 2. Recurrent fever. 3. Tachycardia. 4. Hypertension. 5. Persistent refractory leukocytosis. 6. Normocytic anemia. 7. Status post packed red blood cell transfusion x3. 8. Reactive thrombocytosis. 9. Granulocytosis. 10. Acute kidney injury with chronic kidney disease stage 4. 11. Status post left foot left great toe amputation and metatarsal amputation. 12. Status post left foot second and third toe removal. 13. Left foot wound debridement. 14. Severe peripheral vascular disease. 15. Uncontrolled diabetes mellitus with hyperglycemia and elevated hemoglobin A1c. 16. Transitional confusional and disorientation state. 17. Possible delirium versus toxic metabolic encephalopathy. 18. Hypotension. 1. Pseudomonas aeruginosa, Proteus mirabilis and beta hemolytic group B Streptococcus, left foot diabetic ulceration and gangrene. 2. Status post status post left foot great toe amputation and metatarsal amputation. 3. Status post removal of the second and third toe nail. 4. Status post left foot wound debridement. 5. Severe peripheral vascular disease of the lower extremity with ankle-brachial indexes of less than 1. 6. History of chronic osteomyelitis of the left foot. 7. Normocytic anemia. 8. Refractory leukocytosis, slow resolving. 9. Reactive thrombocytosis. 10. Leukocytosis with granulocytosis. 11. Status post packed red blood cell transfusion x3. 12. Hypertensive and diabetic chronic kidney disease stage III. 13. Uncontrolled diabetes mellitus with hyperglycemia and elevated hemoglobin A1c. 14. Deconditioning. 15. Gait dysfunction. 16. Questionable delirium versus encephalopathy versus transient confusional and disorientation state. 17. History of hyperuricemia and gout. 18. History of poor compliance, noncompliance. 19. Tachycardia. 20. High-grade fever. 21. Transient hypotension. 22. Dilated cardiomyopathy with left ventricular ejection fraction of 35%. 23. Severe mitral and tricuspid regurgitation. 24. Severe peripheral vascular disease of the lower extremity. 1. Sepsis, secondary to left foot diabetic foot ulceration secondary to Proteus mirabilis, Pseudomonas aeruginosa, beta hemolytic group B strep. 2. High-grade fever. 3. Tachycardia. 4. Episodic hypotension. 5. Leukocytosis with granulocytosis. 6. Acute kidney injury with underlying chronic kidney disease stage 4. 7. Uncontrolled non-insulin requiring diabetes mellitus with hyperglycemia and elevated hemoglobin A1c and elevated fructosamine of 329. 8. Episodic disorientation and confusion, possible questionable delirium versus toxic metabolic encephalopathy. 9. Proteinuria, microscopic hematuria, bacteriuria. 10. Monoclonal gammopathy, of unknown significance. 11. Metabolic acidosis. 12. Hypertensive, diabetic, chronic kidney disease stage 3. 13. Severe mitral, tricuspid regurgitation with systolic congestive heart failure and cardiomyopathy with ejection fraction of 35%. 14. Left foot grade 2 amputation, second metatarsal amputation, and third and fourth toe toenail removal and wound debridement. 15. Cardiomyopathy. 16. Severe peripheral vascular disease of the lower extremity. 17. Persistent refractory leukocytosis. 18. Chronic microvascular ischemic disease of the brain and cerebral cortical atrophy of the brain. 19. Gait dysfunction. 20. Deconditioning. 21. Transient confusion state secondary to transient cerebral hypoperfusion and hyperglycemic fluctuations. 1. Status post left foot great toe amputation and second metatarsal amputation and third and fourth digit toenail removal and left foot wound debridement, postop day #1. 2. Chronic nonhealing left foot diabetic foot ulceration and possible gangrene. 3. Fever. 4. Tachycardia. 5. Hypotension. 6. Persistent refractory leukocytosis with granulocytosis. 7. Normocytic anemia, status post packed red blood cell transfusion x3. 8. Uncontrolled diabetes mellitus with hyperglycemia and elevated hemoglobin A1c of 8.6. 9. Hyper fructosemia. 10. Lactic acidosis. 11. Hyperuricemia. 12. Possible iron-deficiency. 13. Elevated C-reactive protein of greater than 15. 14. Hypertriglyceridemia. 15. Proteinuria. 16. Microscopic hematuria. 17. Bacteriuria. 18. Elevated total kappa lambda ratio. 19. Pseudomonas aeruginosa and beta hemolytic strep group B left foot diabetic foot ulceration. 20. Status post packed red blood cell transfusion x3. 21. Left foot cellulitis. 22. Chronic microvascular ischemic disease of the brain and cerebral cortical atrophy of the brain. 23. Sepsis with Pseudomonas aeruginosa and group B Streptococcus beta hemolytic Streptococcus left foot diabetic foot ulcerations and cellulitis. 24. Kidney injury with underlying chronic kidney disease. 25. Hypertensive diabetic chronic kidney disease. 26. Stage III chronic kidney disease secondary to hypertension and vasculopathy. 27. Anemia. 28. Monoclonal gammopathy of unknown significance. 29. Transient and episodic confusion and disorientation, probably secondary to transient cerebral hypoperfusion and uncontrolled diabetes mellitus. 30. Sepsis. 1. Group B Streptococcus and Pseudomonas aeruginosa, left foot diabetic foot ulceration and gangrene and cellulitis. 2. History of chronic osteomyelitis of the left foot. 3. High-grade fever. 4. Questionable sepsis versus systemic inflammatory response syndrome. 5. Tachycardia. 6 Hypotension. 7. Questionable and possible encephalopathy versus toxic metabolic encephalopathy with episodic confusion and disorientation. 8. Type 2 diabetes mellitus. 9. Anemia of chronic disease. 10. Status post packed red blood cell transfusion x2. 11. Gait dysfunction. 12. Deconditioning. 13. Status post left foot big toe amputation,2nd metatarsal amputation, wound debridement and 3rd and 4th toe nail removal. 14. Persistent refractory leukocytosis with granulocytosis 15. Normocytic anemia. 16. Uncontrolled type 2 diabetes mellitus with hyperglycemia. 17. Microvascular ischemic disease of the brain. 18. Cerebral cortical atrophy of the brain. 19. Gait dysfunction with nonweightbearing status of the left foot. 20. Severe peripheral vascular disease of the lower extremity with severe bilateral tibial and distal lower extremities severe occlusive disease with ankle-brachial index is of less than 1. 21. History of hypertension. 22. History of gout and hyperuricemia. 23. History of gouty arthritis. 24. Dilated cardiomyopathy with ejection fraction of 35% with severe mitral and tricuspid regurgitation. 25. Acute kidney injury with underlying chronic kidney disease stage III. 26. Proteinuria and microscopic hematuria. 1. High-grade fever and new fever. 2. Tachycardia. 3. Hypotension. 4. Questionable sepsis versus systemic inflammatory response syndrome with high-grade fever, tachycardia, hypotension. 5. Persistent refractory leukocytosis with granulocytosis. 6. Normocytic anemia. 7. Status post packed red blood cell transfusion x2. 8. Uncontrolled type 2 noninsulin-requiring diabetes mellitus with hyperglycemia. 9. Left foot Pseudomonas aeruginosa, group B Streptococcus with beta-hemolytic left foot, and left foot diabetic ulceration and possible diabetic left foot gangrene. 10. Proteinuria. 11. Microscopic hematuria. 12. Bacteriuria. 13. Left foot group B streptococcal beta-hemolytic and Pseudomonas aeruginosa left foot diabetic foot ulceration. 14. Episodic disorientation and confusion, etiology undetermined. 15. Questionable toxic metabolic encephalopathy. 16. Hyperglycemia secondary to uncontrolled diabetes mellitus. 17. Status post packed red blood cell transfusion x2. 18. Persistent refractory leukocytosis. 19. Left foot diabetic ulceration and diabetic cellulitis. 20. Dilated cardiomyopathy. 21. History of poor compliance and noncompliance. 22. History of hyperuricemia and gout. 23. 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 24. Gait dysfunction. 25. Deconditioning. 1. Left foot diabetic ulceration and nonhealing diabetic ulceration with possible diabetic gangrene of the left foot and great toe and the left foot toes with group B Streptococcus and Pseudomonas aeruginosa, cellulitis and diabetic foot gangrene of the left foot. 2. Uncontrolled diabetes mellitus with elevated hemoglobin A1c. 3. Fever. 4. Questionable sepsis. 5. Tachycardia. 6. Possible sepsis versus systemic inflammatory response syndrome. 7. Fever. 8. Transient hypotension. 9. Dilated cardiomyopathy. 10. Persistent refractory leukocytosis. 11. Normocytic anemia status post packed red blood cell transfusion. 12. Granulocytosis. 13. Acute kidney injury with underlying chronic kidney disease, stage IV. 14. Uncontrolled diabetes mellitus with hyperglycemia and an elevated hemoglobin A1c and hyperfructosemia. 15. History of poor compliance and noncompliance. 16. History of hyperuricemia and gout. 17. Severe peripheral vascular disease. 18. History of severe peripheral vascular disease of the lower extremity. 19. Severe mitral and tricuspid regurgitation. 20. Cardiomyopathy with ejection fraction of around 35%. 21. History of poor compliance. 22. History of chronic osteomyelitis of the left foot and partial amputation of the left foot second toe. 1. Fever. 2. Sinus tachycardia. 3. Pseudomonas nose group. Group B streptococcus group B beta hemolytic left foot diabetic foot ulcerations and cellulitis and gangrene. 4. Severe peripheral vascular disease. 5. Persistent refractory leukocytosis with granulocytosis. 6. Anemia with decreasing hemoglobin/hematocrit. 7. Elevated erythrocyte sedimentation rate of 122. 8. Chronic kidney disease, stage 3. 9. Hyperglycemia secondary to uncontrolled diabetes mellitus with hemoglobin A1c of 8.6 and hyper fructose anemia. 10. Transaminitis. 11. Iron-deficiency anemia. 12. Hypertriglyceridemia. 13. Elevated C-reactive protein of greater than 15. 14. Lactic acidosis. 15. Status post packed red blood cell transfusions x2. 16. Left foot erosive changes. 17. Severe peripheral vascular disease of bilateral popliteal trifurcation and tibial disease with normal resting ankle-brachial indices. 18. Chronic osteomyelitis of the left foot with bony destruction and sclerosis around the first metatarsophalangeal joint and partial amputation of the second proximal phalanx. 19. Severe degenerative joint disease of the left midfoot. 20. Left axis deviation. 21. Acute kidney injury with underlying chronic kidney disease. 22. Metabolic acidosis. 23. Hypertensive diabetic chronic kidney disease stage 3 without proteinuria. 24. Monoclonal gammopathy of unknown significance. 25. Severe mitral, tricuspid regurgitation with cardiomyopathy, left ventricular ejection fraction of 35% to 40%. 26. Left foot diabetic foot ulceration and gangrene. 27. Congestive heart failure with reduced ejection fraction. 28. Nonhealing left foot diabetic ulceration. 29. Sepsis with left foot cellulitis and diabetic foot ulceration with Pseudomonas secondary to Pseudomonas aeruginosa and Streptococcus group B beta hemolytic Streptococcus. 30. Questionable and possible delirium versus encephalopathy. 31. Gait dysfunction. 32. Deconditioning. 33. Constipation. 34. Hypovitaminosis D. 35. Prostatic hypertrophy. 36. Hyperlipidemia. 37. Hyperuricemia. 38. Hyperglycemia. 39. Uncontrolled diabetes mellitus with hyperglycemia. 40. Gait dysfunction. 41. History of poor compliance and noncompliance. 1. Left foot Pseudomonas aeruginosa and group B beta hemolytic strep, left foot diabetic foot ulceration and cellulitis. 2. Sepsis secondary to Pseudomonas aeruginosa and group B beta hemolytic strep, left diabetic foot ulceration and cellulitis. 3. Hypertension. 4. Tachycardia. 5. Anemia. 6. Status post packed red blood cell transfusion one unit. 7. Leukocytosis with granulocytosis. 8. Elevated erythrocyte sedimentation rate of 122. 9. Iron-deficiency. 10. Acute kidney injury with underlying chronic kidney disease, stage IV. 11. Uncontrolled diabetes mellitus with hyperglycemia and elevated hemoglobin A1c of 8.6 and elevated fructose, a mean of 329. 12. Transient lactic acidosis. 13. Transaminitis. 14. Hypertriglyceridemia. 15. Elevated C-reactive protein of greater than 15. 16. Gait dysfunction. 17. Deconditioning. 18. Metabolic acidosis. 19. 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 20. Severe mitral, tricuspid regurgitation and systolic congestive heart failure. 21. Left foot cellulitis and left foot diabetic ulceration. 22. Left diabetic foot ulceration and possible gangrene or pre-gangrenous condition of the left foot toes. 23. Left foot second digit amputation. 24. Peripheral vascular disease. 25. Left foot second toe amputation with cyanosis and mummification of the toes and forefoot of the left foot. 26. Severe tibial disease of the lower extremity. 27. Peripheral vascular disease. 28. Anemia of chronic disease. 29. Bilateral popliteal trifurcation and tibial disease. 30. Left anterior hemiblock. 1. Left foot Pseudomonas aeruginosa and group B Streptococcus beta hemolytic left foot cellulitis and diabetic foot ulcer. 2. Severe peripheral vascular disease of the lower extremity. 3. Normocytic anemia with decreasing hemoglobin. 4. Leukocytosis with granulocytosis. 5. Uncontrolled diabetes mellitus with hyperglycemia. 6. Acute kidney injury with underlying chronic kidney disease stage III/IV. 7. Transaminitis. 8. Probably anemia of chronic kidney disease. 9. Acute kidney injury with underlying chronic kidney disease. 10. Metabolic acidosis. 11. Hypertensive diabetic chronic kidney disease. 12. [id number] mitral regurgitation and [id number] tricuspid regurgitation. 13. Dilated cardiomyopathy with ejection fraction of 35%. 14. Sepsis. 15. Hypertension. 16. Gait dysfunction. 17. Deconditioning. 18. Bilateral lower extremity peripheral vascular disease. 19. History of poor compliance and noncompliance. 20. History of hyperuricemia and gout. 1. Left foot cellulitis versus gangrene versus pregangrenous state. 2. Sepsis. 3. Tachycardia. 4. Transient episodic hypotension. 5. Leukocytosis with granulocytosis 6. Elevated erythrocyte sedimentation rate of 122. 7. Normocytic anemia. 8. Chronic kidney disease stage 4 with acute kidney injury. 9. Uncontrolled noninsulin-requiring diabetes mellitus with hyperglycemia and hemoglobin A1c of 8.6. 10. Possible iron-deficiency. 11. Hypertriglyceridemia. 12. Elevated C-reactive protein of greater than 15. 13. Transient lactic acidosis. 14. Transaminitis. 15. Deconditioning. 16. Gait dysfunction. 17. Anemia with decreasing hemoglobin and hematocrit. 18. Metabolic acidosis. 19. Diabetic hypertensive chronic kidney disease. 20. Chronic kidney disease stage 3 without proteinuria. 21. Severe mitral and tricuspid regurgitation. 22. Systolic congestive heart failure. 23. Dilated ischemic cardiomyopathy, etiology undetermined. 1. Left foot cellulitis with diabetic foot disease and possible abscess versus possible osteomyelitis. 2. History of left foot second toe amputation. 3. Hypertension. 4. Tachycardia. 5. Fever. 6. Poor compliance and noncompliance. 7. Leukocytosis with granulocytosis. 8. Normocytic anemia. 9. Elevated erythrocyte sedimentation rate of 122. 10. Chronic kidney disease, stage IV with acute kidney injury. 11. Transient lactic acidosis. 12. History of hyperuricemia. 13. Hypertriglyceridemia. 14. Aortic calcification. 15. Bilateral lower extremity popliteal trifurcation and tibial peripheral vascular disease. 16. Left foot first metatarsophalangeal joint bony destruction and sclerosis, chronic osteomyelitis. 17. 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 18. 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 19. Sinus tachycardia with left anterior hemiblock. 20. Deconditioning. 21. History of poor compliance. 22. Chronic dilated ischemic cardiomyopathy with ejection fraction of . 23. History of hypertension. 24. History of heart failure with reduced ejection fraction of 35%. 25. Pulmonary hypertension with right ventricular systolic pressure of 40 mmHg. 26. Left ventricular global hypokinesis and moderately impaired left ventricular systolic function. 27. Mild aortic regurgitation. 28. Moderate to severe mitral regurgitation. 29. Moderate tricuspid regurgitation. 30. History of constipation. 31. Hypovitaminosis D. 32. History of iron-deficiency anemia. 33. Prostatic hypertrophy. 34. Insulin-requiring diabetes mellitus. 35. Hyperlipidemia. 36. History of peripheral vascular disease. 37. Hyperuricemia. 1. Left foot diabetic foot ulceration versus left foot abscess versus left foot toe osteomyelitis. 2. Tachycardia. 3. Leukocytosis with granulocytosis. 4. Questionable systemic inflammatory response syndrome. 5. Uncontrolled diabetes mellitus with hyperglycemia. 6. Chronic kidney disease stage IV. 7. Mild transaminitis. 8. History of hypertension. 9. Hyperlipidemia. 10. History of prostatic hypertrophy. 11. History of iron-deficiency anemia. 12. History of hypovitaminosis D. 13. History of dilated cardiomyopathy. 14. History of pulmonary hypertension. 15. History of moderate tricuspid regurgitation and mitral regurgitation. 16. Hyperuricemia. PLAN: At this time, the patient is to be continued on IV antibiotics as per Infectious Disease recommendations about meropenem. The patient is to be continued on basal and bolus insulin with sliding scale coverage. The patient will be continued on pharmacological, non-pharmacological GI DVT prophylaxis. The patient has been ordered out of bed to chair with nonweightbearing of the left lower extremity. The patient is awaiting further surgical intervention by the vascular surgery regarding transmetatarsal amputation versus below-knee amputation, these below-knee amputation are best to be the best option in this situation with the patient's severe peripheral vascular disease. The final decision will be up to the surgical and vascular surgery attending. The patient will be continued on the above therapeutic intervention as per the MAR. We will consider increasing the ProAmatine if the patient's blood pressure stays low and will also consider giving IV fluid again for 24 to 48 hours for hypotension. Dictated and electronically signed, not read. Niranjan Ling MD [facility] # [id number] KESHAWN
--- NOTE | 2018-12-06 19:25 | PN ---
DATE: 12/06/2018 CARDIOLOGY FOLLOWUP SUBJECTIVE: The patient is in bed working with physical therapy without enthusiasm. PHYSICAL EXAMINATION: VITAL SIGNS: Blood pressure is 110/64, heart rate is 100. NECK: Negative JVD. LUNGS: Decreased breath sounds. HEART: S1, S2. EXTREMITIES: Without change. LABORATORY DATA: Hemoglobin is 11.4. Chemistries, BUN and creatinine are 45 and 2.5. IMPRESSION: 1. Renal insufficiency. 2. Cellulitis. 3. Status post amputation of lower digits. 4. Dilated cardiomyopathy. 5. Coronary artery disease. 6. Anemia. PLAN: Given these findings, I have emphasized the patient about the importance of working with physical therapy and moving his joints to avoid contractures. Milton Murrell MD
--- NOTE | 2018-12-07 01:10 | PN ---
DATE: 12/06/2018 SUBJECTIVE: The patient is in bed, in no acute distress, nontoxic. PHYSICAL EXAMINATION: VITAL SIGNS: Temperature is 98, blood pressure is 110/60, respiratory rate 20. HEENT: Unremarkable. NECK: Supple. LUNGS: Decreased breath sounds. HEART: Normal S1, S2. ABDOMEN: Soft, nontender. LABORATORY DATA: Examination reveals a white count of 11,500. Chemistries are noted. Urinalysis is noted and immunology is noted. Serology is reviewed. Microbiology is noted. ASSESSMENT AND PLAN: A 73-year-old male with the left hallux, second toe and second metatarsal amputation postoperative day #13, Charcot's foot ulcer, Proteus, and Pseudomonas. Currently on meropenem. We will discuss with Podiatry. OR is pending. Tai Landaverde MD
[2018-12-07] MEDS: Pantoprazole 40 mg EC Tab PO SCH (05:54)
[2018-12-07 07:27] LABS: ALBUMIN 3.8 g/dL (3.0-4.8); BILIRUBIN,DIRECT 0.3 mg/dL (0.0-0.4); CALCIUM 9.6 mg/dL (8.4-10.5)
[2018-12-07 08:17] LABS: HEMOGLOBIN 11.4 g/dL (14.0-18.0); MEAN CELL VOLUME 94.3 fl (80.0-105.0); MEAN CORPUSCULAR HEMOGLOBIN 30.8 pg (25.0-35.0); MEAN CORPUSCULAR HGB CONC 32.7 g/dl (31.0-37.0); RBC 3.7 10^6/uL (3.5-6.1); RED CELL DISTRIBUTION WIDTH 16.3 % (11.5-14.5); WHITE BLOOD COUNT 11.8 10^3/uL (4.5-11.0)
[2018-12-07] MEDS: Insulin Lispro (humaLOG) MEDIUM Coverage SC SCH ×3 (08:24→16:26)
[2018-12-07] MEDS: Insulin Human NPH 1 UNITS/0.01 ML SC SCH ×2 (10:08→16:26)
[2018-12-07] MEDS: Multivitamin Vitamin B Complex (Nephro-Vite) Tab PO SCH (10:08)
[2018-12-07] MEDS: POLYETHYLENE GLYCOL 3350 17 GM/Dose PACKET PO SCH ×2 (10:08→17:06)
[2018-12-07] MEDS: MEROPENEM 500 MG in NS 500 MG/50 ML BAG IVPB SCH ×2 (10:08→21:55)
[2018-12-07] MEDS: Dakin's Topical 0.25%-Half Strength (480 ml) TOP SCH (10:09)
--- NOTE | 2018-12-07 10:48 | CP.PCM.PN ---
<Marco AMalinda - Last Filed: 12/08/18 07:33> Subjective - Date & Time of Evaluation Date of Evaluation: 12/07/18 Time of Evaluation: 06:45 - Subjective Subjective: General Surgery Dr. 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 No acute events overnight. Pt has no complaints this AM. denies F/C, N/V. LLE pain well controlled. tolerating diet. Objective - Vital Signs/Intake and Output Vital Signs (last 24 hours): Temp Pulse Resp BP Pulse Ox 98.2 F 92 H 19 107/61 100 12/07/18 06:00 12/07/18 06:00 12/07/18 06:00 12/07/18 06:00 12/07/18 06:00 - Medications Medications: Current Medications Acetaminophen (Tylenol 325mg Tab) 650 mg PO Q6H PRN PRN Reason: Pain, Mild (1-3) Last Admin: 12/04/18 10:24 Dose: 650 mg Acetaminophen (Tylenol 325mg Tab) 650 mg PO Q6 PRN PRN Reason: Fever >100.4 F Dextrose (Dextrose 50% Inj) 0 ml IV STAT PRN; Protocol PRN Reason: Hypoglycemia Protocol Docusate Sodium (Colace) 100 mg PO TID [facility] Last Admin: 12/07/18 10:08 Dose: 100 mg Ferrous Gluconate (Fergon) 324 mg PO TID [facility] Last Admin: 12/07/18 10:08 Dose: 324 mg Heparin Sodium (Porcine) (Heparin) 5,000 units SC Q8 [facility]; Protocol Last Admin: 12/07/18 05:54 Dose: 5,000 units Dextrose (Dextrose 5% In Water 1000 Ml) 1,000 mls @ 0 mls/hr IV .Q0M PRN; Protocol PRN Reason: Hypoglycemia Protocol Meropenem/Sodium Chloride (Merrem Iv 500 Mg/Ns 50 Ml) 500 mg in 50 mls @ 100 mls/hr IVPB Q12 [facility]; Protocol Last Admin: 12/07/18 10:08 Dose: 100 mls/hr Insulin Human Lispro (Humalog Med) 0 units SC AC [facility]; Protocol Last Admin: 12/07/18 08:24 Dose: Not Given Insulin Human NPH (Humulin N) 20 units SC ACBD [facility] Last Admin: 12/07/18 10:08 Dose: 20 units Midodrine (Proamatine) 5 mg PO TID COUNT INCLUDES [facility] Last Admin: 12/07/18 10:08 Dose: 5 mg Ondansetron HCl (Zofran Inj) 4 mg IVP Q4H PRN PRN Reason: Nausea/Vomiting Pantoprazole Sodium (Protonix Ec Tab) 40 mg PO 0600 COUNT INCLUDES [facility] Last Admin: 12/07/18 05:54 Dose: 40 mg Polyethylene Glycol (Miralax) 17 gm PO BID COUNT INCLUDES THE [facility] Last Admin: 12/06/18 18:49 Dose: 17 gm Sodium Hypochlorite (Dakins Solution 0.25%) 20 ml TOP DAILY COUNT INCLUDES THE [facility] Last Admin: 12/07/18 10:09 Dose: 1 applic Tamsulosin HCl (Flomax) 0.4 mg PO DAILY COUNT INCLUDES [facility] Last Admin: 12/07/18 10:08 Dose: 0.4 mg Vitamin B Complex/Vit C/Folic Acid (Nephro-Sumit) 1 tab PO 0800 COUNT [facility]CLUDES [facility] Last Admin: 12/07/18 10:08 Dose: 1 tab - Labs Labs: 12/07/18 08:00 12/07/18 07:00 PT 14.7 SECONDS (9.4-12.5) H 11/25/18 13:05 INR 1.30 11/25/18 13:05 APTT 26.3 Seconds (26.9-38.3) L 11/25/18 13:05 - Constitutional Appears: Non-toxic, No Acute Distress - Head Exam Head Exam: NORMAL INSPECTION - Eye Exam Eye Exam: Normal appearance - ENT Exam ENT Exam: Mucous Membranes Moist - Respiratory Exam Respiratory Exam: NORMAL BREATHING PATTERN. absent: Accessory Muscle Use, Respiratory Distress - Cardiovascular Exam Cardiovascular Exam: absent: Bradycardia, Tachycardia - GI/Abdominal Exam GI & Abdominal Exam: Soft. absent: Distended - Extremities Exam Additional comments: foot dressing c/d/i - Neurological Exam Neurological Exam: Alert, Awake - Psychiatric Exam Psychiatric exam: Normal Affect, Normal Mood - Skin Skin Exam: Dry, Warm Assessment and Plan - Assessment and Plan (Free Text) Assessment: 73 y/o M POD#12 s/p L great toe and 2nd metatarsal amputation 2/2 chronic L foot wound and osteomyelitis Plan: - cont wet-to-dry dressing changes w/ Dakins solution - cont pain management - IV Abx per ID - PT/OT - tentative plan for OR Thursday? Pt discussed w/ Dr. Ian Strickland PGY3 <Kain Sosa - Last Filed: 12/09/18 19:25> Objective - Vital Signs/Intake and Output Vital Signs (last 24 hours): Temp Pulse Resp BP Pulse Ox 98.4 F 94 H 20 97/62 L 100 12/09/18 13:44 12/09/18 13:44 12/09/18 13:44 12/09/18 13:44 12/09/18 13:44 Intake and Output: 12/09/18 12/10/18 18:59 06:59 Intake Total 480 Output Total 300 Balance 180 - Medications Medications: Current Medications Acetaminophen (Tylenol 325mg Tab) 650 mg PO Q6H PRN PRN Reason: Pain, Mild (1-3) Last Admin: 12/08/18 09:31 Dose: 650 mg Acetaminophen (Tylenol 325mg Tab) 650 mg PO Q6 PRN PRN Reason: Fever >100.4 F Dextrose (Dextrose 50% Inj) 0 ml IV STAT PRN; Protocol PRN Reason: Hypoglycemia Protocol Dextrose (Dextrose 50% Inj) 0 ml IV STAT PRN; Protocol PRN Reason: Hypoglycemia Protocol Docusate Sodium (Colace) 100 mg PO TID [facility]CLUDES [facility] Last Admin: 12/09/18 18:14 Dose: 100 mg Famotidine (Pepcid) 20 mg PO 1000,2200 COUNT INCLUDES [facility] Stop: 12/11/18 10:01 Last Admin: 12/09/18 10:50 Dose: 20 mg Ferrous Gluconate (Fergon) 324 mg PO TID COUNT [facility]CLUDES [facility] Last Admin: 12/09/18 18:14 Dose: 324 mg Heparin Sodium (Porcine) (Heparin) 5,000 units SC Q8 [facility]CLUDES [facility]; Protocol Last Admin: 12/09/18 15:31 Dose: 5,000 units Dextrose (Dextrose 5% In Water 1000 Ml) 1,000 mls @ 0 mls/hr IV .Q0M PRN; Prot ocol PRN Reason: Hypoglycemia Protocol Meropenem/Sodium Chloride (Merrem Iv 500 Mg/Ns 50 Ml) 500 mg in 50 mls @ 100 mls/hr IVPB Q12 COUNT INCLUDES [facility]; Protocol Last Admin: 12/09/18 10:51 Dose: 100 mls/hr Dextrose (Dextrose 5% In Water 1000 Ml) 1,000 mls @ 0 mls/hr IV .Q0M PRN; Protocol PRN Reason: Hypoglycemia Protocol Insulin Human Lispro (Humalog Med) 0 units SC AC COUNT INCLUDES [facility]; Protocol Last Admin: 12/09/18 17:00 Dose: 1 units Insulin Human NPH (Humulin N) 17 units SC ACBD COUNT INCLUDES [facility] Last Admin: 12/09/18 17:03 Dose: 17 unit Midodrine (Proamatine) 5 mg PO TID COUNT [facility]CLUDES [facility] Last Admin: 12/09/18 18:14 Dose: 5 mg Nystatin (Nystop Topical Powder) 0 gm TOP BID COUNT INCLUDES [facility] Last Admin: 12/09/18 18:17 Dose: 1 appl Ondansetron HCl (Zofran Inj) 4 mg IVP Q4H PRN PRN Reason: Nausea/Vomiting Pantoprazole Sodium (Protonix Ec Tab) 40 mg PO 0600 COUNT [facility]CLUDES [facility] Last Admin: 12/09/18 05:37 Dose: 40 mg Polyethylene Glycol (Miralax) 17 gm PO BID COUNT [facility]CLUDES [facility] Last Admin: 12/09/18 18:16 Dose: Not Given Sodium Hypochlorite (Dakins Solution 0.25%) 20 ml TOP DAILY COUNT INCLUDES THE [facility] Last Admin: 12/09/18 10:47 Dose: 1 applic Tamsulosin HCl (Flomax) 0.4 mg PO DAILY COUNT INCLUDES [facility] Last Admin: 12/09/18 10:49 Dose: 0.4 mg Vitamin B Complex/Vit C/Folic Acid (Nephro-Sumit) 1 tab PO 0800 COUNT INCLUDES [facility] Last Admin: 12/09/18 08:17 Dose: 1 tab - Labs Labs: 12/09/18 07:30 12/09/18 07:30 PT 14.7 SECONDS (9.4-12.5) H 11/25/18 13:05 INR 1.30 11/25/18 13:05 APTT 26.3 Seconds (26.9-38.3) L 11/25/18 13:05 Assessment and Plan - Assessment and Plan (Free Text) Plan: Patient was seen, evaluated and examined by me at the bedside. I agree with assessment and plan as stated in the resident's note.
--- NOTE | 2018-12-07 12:16 | CP.PCM.PCO ---
Physician Communication Note - Physician Communication Note Physician Communication Note: possible OR Fri. as per surgery
--- NOTE | 2018-12-07 12:24 | CP.PCM.PN ---
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 stable renal fxn Hypertension control with meds as ordered. Maintain hemodynamics stable. Avoid hypotension. Patient not on ACEI/ARB due to EMIL and hyperkalemia tendency. consider to add once stable. Monitor Input/Output, daily weights and renal function with basic metabolic panel continue with iron and MVI. PRBC as needed. dose of aransep 40 mcg weekly held as Hb 11.2. K/L ratio remains high at 3.6. pending hematology eval vit d can be changed to once a month as last level 41 continue with flomax can give IVF as needed plan for TMA as per podiatry/surgery Dose meds/antibiotics for reduced GFR. Avoid fleets enema/magnesium based laxatives. Avoid nephrotoxins/NSAIDs/ iodinated contrast (unless needed emergently) Glycemic control Further work up/management as per primary team Thanks for allowing me to participate in care of your patient. Will follow patient with you. Please call if any Qs. had d/w team and son Dr Anjum Padron Office: [phone] Chief Complaint; Foot ulcer Reason for consult: Acute Kidney Injury HPI: Pt is a 73 M with hx of diabetes Mellitus (30 years), hypertension (years) PVD, Gout CKD 3 with baseline cr 1.8-1.9 presented with complaints of foot ulcer, being managed for cellulitis. seen for EMIL and pt also with PVD Denies OTC/herbal meds or NSAIDs. No recent iodinated contrast exposure. Noted obvious episodes of low BP. pt still not aware about kidney disease in past ROS: noted overnight events Cardiovascular: No chest pain. Pulmonary: No shortness of breath Gastrointestinal: denies abdominal pain No nausea. No vomiting. Genitourinary: No pain while urinating. Denies blood in urine. All other negative except as mentioned in HPI. per son, pt refused to go for outpt follow ups Physical Examination: General Appearance: Comfortable, in no acute respiratory distress, co-operative . Vitals reviewed and noted as below Head; Atraumatic, normocephalic ENT: no ulcers no thrush. Tongue is midline. Oropharynx: no rash or ulcers. EYES: Pupils are equal, round and reactive to light accommodation. Eye muscles and extra-ocular movement intact. Sclera is anicteric. Neck; supple no lymphadenopathy, no thyromegaly or bruit Lungs: Normal respiratory rate/effort. Breath sounds bilateral improved Heart: Incr rate. s1s2 normal. No rub or gallop. Extremities: no edema. No varicose veins. left foot in dressing Neurological: Patient is alert, awake and oriented to person, place and time. No focal deficit. Strength bilateral appropriate and equal Skin: Warm and dry. Normal turgor. No rash. Palpitation: Normal elasticity for age Abdomen: Abdomen is soft. Bowel sounds +. There is no abdominal tenderness, no guarding/rigidity no organomegaly Psych: lack insight and has normal affect/mood MSK: no joint tenderness or swelling. Digits and nails normal, no deformity : kidney or bladder not palpable. Labs/imaging reviewed. Past medical history, past surgical history, family history, social history, allergy reviewed and noted as below Family hx: no hx of CKD. Rest non-contributory Phos 3.5 TSAT 13% Vit D 41 PTH 49 LDL 103 kappa/lambda 3.4 uric acid 7.5 renal cyst left side Objective - Vital Signs/Intake and Output Vital Signs (last 24 hours): Temp Pulse Resp BP Pulse Ox 98.2 F 92 H 19 107/61 100 12/07/18 06:00 12/07/18 06:00 12/07/18 06:00 12/07/18 06:00 12/07/18 06:00 - Medications Medications: Current Medications Acetaminophen (Tylenol 325mg Tab) 650 mg PO Q6H PRN PRN Reason: Pain, Mild (1-3) Last Admin: 12/07/18 11:26 Dose: 650 mg Acetaminophen (Tylenol 325mg Tab) 650 mg PO Q6 PRN PRN Reason: Fever >100.4 F Dextrose (Dextrose 50% Inj) 0 ml IV STAT PRN; Protocol PRN Reason: Hypoglycemia Protocol Docusate Sodium (Colace) 100 mg PO TID [facility] Last Admin: 12/07/18 10:08 Dose: 100 mg Ferrous Gluconate (Fergon) 324 mg PO TID [facility] Last Admin: 12/07/18 10:08 Dose: 324 mg Heparin Sodium (Porcine) (Heparin) 5,000 units SC Q8 [facility]; Protocol Last Admin: 12/07/18 05:54 Dose: 5,000 units Dextrose (Dextrose 5% In Water 1000 Ml) 1,000 mls @ 0 mls/hr IV .Q0M PRN; Protocol PRN Reason: Hypoglycemia Protocol Meropenem/Sodium Chloride (Merrem Iv 500 Mg/Ns 50 Ml) 500 mg in 50 mls @ 100 mls/hr IVPB Q12 [facility]; Protocol Last Admin: 12/07/18 10:08 Dose: 100 mls/hr Insulin Human Lispro (Humalog Med) 0 units SC AC [facility]; Protocol Last Admin: 12/07/18 11:26 Dose: 7 units Insulin Human NPH (Humulin N) 20 units SC ACBD [facility] Last Admin: 12/07/18 10:08 Dose: 20 units Midodrine (Proamatine) 5 mg PO TID [facility] Last Admin: 12/07/18 10:08 Dose: 5 mg Ondansetron HCl (Zofran Inj) 4 mg IVP Q4H PRN PRN Reason: Nausea/Vomiting Pantoprazole Sodium (Protonix Ec Tab) 40 mg PO 0600 [facility] Last Admin: 12/07/18 05:54 Dose: 40 mg Polyethylene Glycol (Miralax) 17 gm PO BID [facility] Last Admin: 12/07/18 10:08 Dose: 17 gm Sodium Hypochlorite (Dakins Solution 0.25%) 20 ml TOP DAILY [facility] Last Admin: 12/07/18 10:09 Dose: 1 applic Tamsulosin HCl (Flomax) 0.4 mg PO DAILY [facility] Last Admin: 12/07/18 10:08 Dose: 0.4 mg Vitamin B Complex/Vit C/Folic Acid (Nephro-Sumit) 1 tab PO 0800 [facility] Last Admin: 12/07/18 10:08 Dose: 1 tab - Labs Labs: 12/07/18 08:00 12/07/18 07:00 PT 14.7 SECONDS (9.4-12.5) H 11/25/18 13:05 INR 1.30 11/25/18 13:05 APTT 26.3 Seconds (26.9-38.3) L 11/25/18 13:05
--- NOTE | 2018-12-07 13:37 | PN ---
DATE: 12/07/2018 LOCATION: The patient is seen in room 575, bed 2. SUBJECTIVE: Overnight nurse's notes were reviewed. No adverse events were documented or notified. The patient stayed alert, awake, oriented x 2-3. No adverse events were notified or called for. PHYSICAL EXAMINATION: VITAL SIGNS: T-max 98.2, heart rate 92, blood pressure 107/61, respirations 18, O2 sat 100%. HEENT: Head is normocephalic, atraumatic. Pinkish pale conjunctivae. Dry oral mucosa. NECK: No neck rigidity. CHEST: Kyphosis. LUNGS: Examination shows no audible crackle, rales or wheezing. CARDIOVASCULAR: S1, S2, regular rhythm. Questionable soft systolic murmur left sternal border, right second intercostal space, left second intercostal space. ABDOMEN: Soft. Positive bowel sound. No palpable hepatosplenomegaly. GENITALIA: Male. RECTAL: Examination deferred. EXTREMITIES: Examination shows positive left foot dressing. No pitting edema noted of the lower extremity. The patient is able to move upper and lower extremities without assistance. VASCULAR: Decreased pulses. Cranial nerves II through XII limited. Gait examination is not tested. MUSCULOSKELETAL: Examination as per the body mass index. LABORATORY DATA: WBC 11.8, hemoglobin/hematocrit 11.4/34.9, platelet 485. Sodium 137, potassium 4.6, chloride 96, CO2 of 30, BUN 49, creatinine 2.3, glucose 134, calcium 9.6, phosphorus 4.5, magnesium 2.4. LFTs are within normal limits. IMPRESSION: 1. Acute left foot, left second toe osteomyelitis with gangrenous necrosis and gouty tophi. 2. Severe peripheral vascular disease of the lower extremity. 3. Status post left foot great toe amputation and metatarsal amputation. 4. Status post left foot wound debridement. 5. Status post left foot second and third toe nail removal. 6. Uncontrolled insulin-requiring diabetes mellitus with hyperglycemia. 7. Left foot diabetic foot ulceration and cellulitis and acute osteomyelitis. 8. Persistent refractory leukocytosis with granulocytosis. 9. Normocytic anemia, status post packed red blood cell transfusion x3. 10. Acute kidney injury with underlying hypertensive diabetic chronic kidney disease stage III. 11. History of hyperuricemia and gout. 12. Gait dysfunction. 13. Delirium with episodic and transient confusional and disorientation state versus delirium. 14. Possible underlying toxic metabolic encephalopathy secondary to multiple comorbidities and medical comorbidities. 15. History of hypertension. 16. History of cardiomyopathy with left ventricular ejection fraction of 35%. 17. Questionable and possible monoclonal gammopathy of unknown significance. 18. Deconditioning. 19. Hypotension. 1. Left foot great toe and left foot acute osteomyelitis secondary to Pseudomonas aeruginosa, Proteus mirabilis and beta hemolytic group B strep. 2. Severe peripheral vascular disease of the lower extremity. 3. Refractory slow resolving leukocytosis with granulocytosis. 4. Normocytic anemia with decreasing hemoglobin and hematocrit. 5. Status post packed red blood cell transfusion. 6. Uncontrolled diabetes mellitus with hyperglycemia and elevated hemoglobin A1c. 7. Severe peripheral vascular disease of the lower extremity. 8. Acute kidney injury with underlying hypertensive diabetic chronic kidney disease. 9. Normocytic anemia, status post packed red blood cell transfusion x2. 10. Gouty tophi and history of gouty arthritis and hyperuricemia. 11. History of hypertension. 12. Presently hypotension. 13. Tachycardia. 14. Dilated cardiomyopathy with left ventricle ejection fraction around 35%. 15. Severe tricuspid and mitral regurgitation. 16. History of severe noncompliance and poor compliance. 17. Severe peripheral vascular disease. 18. Gait dysfunction. 19. Deconditioning. 20. Transient confusional state versus delirium versus encephalopathy secondary to underlying multiple comorbidity. 21. Gait dysfunction with nonweightbearing status of the left foot. 22. Status post left foot great toe amputation and metatarsal amputation and debridement of the left foot wound and removal of the left foot second and third toe. 1. Left foot great toe and left foot acute osteomyelitis. 2. Non-hemolyzed hyperkalemia. 3. Acute kidney injury and underlying hypertensive/diabetic chronic kidney disease stage 3/4. 4. Leukocytosis with granulocytosis. 5. Anemia. 6. Status post packed red blood cell transfusion x3. 7. Transient confusional state with possible delirium and toxic metabolic encephalopathy. 8. Hypotension. 9. Tachycardia. 10. High-grade fever. 11. Diabetic ulceration of the left foot with acute osteomyelitis of the left foot and toe. 12. Severe peripheral vascular disease of the lower extremity. 13. History of hypertension. 14. History of type 2 diabetes mellitus. 15. History of peripheral vascular disease. 16. History of hyperuricemia and gout. 17. History of [id number] diabetes mellitus. 18. History of poor compliance and noncompliance. 1. Left foot great toe acute osteomyelitis with gangrenous necrosis and gouty tophi. 2. Status post left foot debridement and amputation of the left foot great toe and second metatarsal amputation. 3. Status post debridement of the left foot diabetic foot ulceration and removal of the left foot third and fourth toe nails. 4. Fever. 5. Tachycardia. 6. Persistent leukocytosis with granulocytosis. 7. Normocytic anemia. 8. Status post packed red blood cell transfusion x3. 9. Elevated erythrocyte sedimentation rate of 122. 10. Uncontrolled diabetes mellitus with hyperglycemia and hypoglycemia with hemoglobin A1c of 8.6 and fructosamine of 329. 11. Acute kidney injury with underlying chronic kidney disease stage 3/4. 12. Proteinuria, microscopic hematuria, bacteriuria. 13. 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 14. Proteus mirabilis, Pseudomonas aeruginosa,and beta-hemolytic Streptococcus group B left foot diabetic foot ulceration and acute osteomyelitis. 15. Gait dysfunction. 16. Deconditioning with nonweightbearing status of the left foot. 17. Sepsis with Pseudomonas aeruginosa, Proteus mirabilis and group B Streptococcal left foot acute osteomyelitis, cellulitis and diabetic foot ulceration. 18. Questionable delirium versus toxic metabolic encephalopathy. 19. Constipation. 20. Iron deficiency. 21. Prostatic hypertrophy. 22. Hyperuricemia and gouty arthritis. 23. Hypotension. 1. Left foot great toe acute osteomyelitis with gangrenous necrosis and gouty tophi. 2. Status post left foot debridement and amputation of the left foot great toe and second metatarsal. 3. Status post debridement of the left foot and removal of the left foot third and fourth toe nails. 4. Fever. 5. Tachycardia. 6. Hypotension. 7. Persistent refractory leukocytosis with granulocytosis. 8. Elevated erythrocyte sedimentation rate 222. 9. Acute kidney injury with underlying chronic kidney disease stage III to IV. 10. Uncontrolled insulin-requiring diabetes mellitus with hemoglobin A1c of 8.6 and fructosamine of 329. 11. Lactic acidosis. 12. Elevated C-reactive protein of greater than 15. 13. Hypertriglyceridemia. 14. Decreased HDL of 18. 15. Questionable iron deficiency. 16. Questionable delirium with episodic forgetfulness and disorientation versus toxic metabolic encephalopathy. 17. Proteinuria, microscopic hematuria, and bacteriuria. 18. Questionable monoclonal gammopathy of unknown significance with elevated total kappa/lambda ratio. 19. Left foot great toe Proteus mirabilis, Pseudomonas aeruginosa, and beta hemolytic strep group B osteomyelitis and diabetic foot ulceration. 20. Status post packed red blood cell transfusion x3. 21. Gait dysfunction. 22. Deconditioning. 23. History of gout and hyperuricemia. 24. Acute kidney injury with underlying hypertensive and diabetic chronic kidney disease stage III/IV. 25. Severe mitral and tricuspid regurgitation with systolic congestive heart failure, left ventricle ejection fraction of 35% to 40%. 26. Encephalopathy. 27. Constipation. 28. Prostatic hypertrophy. 1. Acute osteomyelitis of the left foot great toe. 2. Episodic confusion, forgetfulness and disorientation, etiology unclear, questionable delirium versus encephalopathy. 3. Persistent leukocytosis. 4. 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 5. Status post left foot great toe amputation and fifth metatarsal left foot great toe amputation and metatarsal amputation. 6. 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 7. Uncontrolled diabetes mellitus with hypoglycemia. 8. Recurrent high-grade fever. 9. High-grade fever. 10. Tachycardia. 11. Hypotension. 12. History of dilated cardiomyopathy, etiology undetermined. 13. Normocytic anemia, status post packed red blood cell transfusion x3. 14. Persistent refractory leukocytosis with granulocytosis. 15. Uncontrolled diabetes mellitus with hyperglycemia and episodic hypoglycemia. 16. Left foot diabetic foot ulceration and left foot great toe acute osteomyelitis. 17. Severe peripheral vascular disease of the lower extremity. 18. Gait dysfunction. 19. Deconditioning. 20. Noncompliance. 21. History of hypertension, hyperuricemia and gout. 22. Possible monoclonal gammopathy of unknown significance with elevated kappa lambda ratio. 1. Left foot great toe acute osteomyelitis and gangrenous necrosis with gouty tophi with acute gangrenous necrosis and acute osteomyelitis. 2. High-grade fever. 3. Tachycardia. 4. Hypotension. 5. Proteus mirabilis, Pseudomonas aeruginosa and beta hemolytic streptococcus group B left foot great toe osteomyelitis, diabetic foot ulceration and cellulitis. 6. Severe peripheral vascular disease. 7. Refractory leukocytosis. 8. Granulocytosis. 9. Elevated erythrocyte sedimentation rate of 122. 10. Normocytic anemia. 11. Status post packed red blood cell transfusion x3. 12. Uncontrolled insulin-requiring diabetes mellitus with hyperglycemia and hemoglobin A1c of 8.6 and fructosamine of 329. 13. Gait dysfunction secondary to nonweightbearing status of the left foot and toe. 14. Deconditioning. 15. Questionable delirium. 16. Iron-deficiency. 17. Hypertriglyceridemia with decreased high-density lipoprotein. 18. Lactic acidosis. 19. Elevated C-reactive protein no greater than 15. 20. Acute kidney injury with underlying chronic kidney disease, stage 3/4. 21. Proteinuria. 22. Microscopic hematuria, pyuria, bacteriuria. 23. Questionable monoclonal gammopathy of unknown significance with elevated kappa to lambda ratio. 24. Status post left foot great toe amputation and second metatarsal amputation and removal of the third and fourth toe nail and wound debridement. 25. Hypertensive diabetic chronic kidney disease. 26. Severe mitral regurgitation with systolic congestive heart failure and cardiomyopathy with ejection fraction of 35%. 27. Monoclonal gammopathy of unknown significance. 28. Episodic confusion and disorientation. 29. Constipation. 30. Insulin-requiring diabetes mellitus. 31. Hypertension. 1. 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 2. Recurrent fever. 3. Tachycardia. 4. Hypertension. 5. Persistent refractory leukocytosis. 6. Normocytic anemia. 7. Status post packed red blood cell transfusion x3. 8. Reactive thrombocytosis. 9. Granulocytosis. 10. Acute kidney injury with chronic kidney disease stage 4. 11. Status post left foot left great toe amputation and metatarsal amputation. 12. Status post left foot second and third toe removal. 13. Left foot wound debridement. 14. Severe peripheral vascular disease. 15. Uncontrolled diabetes mellitus with hyperglycemia and elevated hemoglobin A1c. 16. Transitional confusional and disorientation state. 17. Possible delirium versus toxic metabolic encephalopathy. 18. Hypotension. 1. Pseudomonas aeruginosa, Proteus mirabilis and beta hemolytic group B Streptococcus, left foot diabetic ulceration and gangrene. 2. Status post status post left foot great toe amputation and metatarsal amputation. 3. Status post removal of the second and third toe nail. 4. Status post left foot wound debridement. 5. Severe peripheral vascular disease of the lower extremity with ankle-brachial indexes of less than 1. 6. History of chronic osteomyelitis of the left foot. 7. Normocytic anemia. 8. Refractory leukocytosis, slow resolving. 9. Reactive thrombocytosis. 10. Leukocytosis with granulocytosis. 11. Status post packed red blood cell transfusion x3. 12. Hypertensive and diabetic chronic kidney disease stage III. 13. Uncontrolled diabetes mellitus with hyperglycemia and elevated hemoglobin A1c. 14. Deconditioning. 15. Gait dysfunction. 16. Questionable delirium versus encephalopathy versus transient confusional and disorientation state. 17. History of hyperuricemia and gout. 18. History of poor compliance, noncompliance. 19. Tachycardia. 20. High-grade fever. 21. Transient hypotension. 22. Dilated cardiomyopathy with left ventricular ejection fraction of 35%. 23. Severe mitral and tricuspid regurgitation. 24. Severe peripheral vascular disease of the lower extremity. 1. Sepsis, secondary to left foot diabetic foot ulceration secondary to Proteus mirabilis, Pseudomonas aeruginosa, beta hemolytic group B strep. 2. High-grade fever. 3. Tachycardia. 4. Episodic hypotension. 5. Leukocytosis with granulocytosis. 6. Acute kidney injury with underlying chronic kidney disease stage 4. 7. Uncontrolled non-insulin requiring diabetes mellitus with hyperglycemia and elevated hemoglobin A1c and elevated fructosamine of 329. 8. Episodic disorientation and confusion, possible questionable delirium versus toxic metabolic encephalopathy. 9. Proteinuria, microscopic hematuria, bacteriuria. 10. Monoclonal gammopathy, of unknown significance. 11. Metabolic acidosis. 12. Hypertensive, diabetic, chronic kidney disease stage 3. 13. Severe mitral, tricuspid regurgitation with systolic congestive heart failure and cardiomyopathy with ejection fraction of 35%. 14. Left foot grade 2 amputation, second metatarsal amputation, and third and fourth toe toenail removal and wound debridement. 15. Cardiomyopathy. 16. Severe peripheral vascular disease of the lower extremity. 17. Persistent refractory leukocytosis. 18. Chronic microvascular ischemic disease of the brain and cerebral cortical atrophy of the brain. 19. Gait dysfunction. 20. Deconditioning. 21. Transient confusion state secondary to transient cerebral hypoperfusion and hyperglycemic fluctuations. 1. Status post left foot great toe amputation and second metatarsal amputation and third and fourth digit toenail removal and left foot wound debridement, postop day #1. 2. Chronic nonhealing left foot diabetic foot ulceration and possible gangrene. 3. Fever. 4. Tachycardia. 5. Hypotension. 6. Persistent refractory leukocytosis with granulocytosis. 7. Normocytic anemia, status post packed red blood cell transfusion x3. 8. Uncontrolled diabetes mellitus with hyperglycemia and elevated hemoglobin A1c of 8.6. 9. Hyper fructosemia. 10. Lactic acidosis. 11. Hyperuricemia. 12. Possible iron-deficiency. 13. Elevated C-reactive protein of greater than 15. 14. Hypertriglyceridemia. 15. Proteinuria. 16. Microscopic hematuria. 17. Bacteriuria. 18. Elevated total kappa lambda ratio. 19. Pseudomonas aeruginosa and beta hemolytic strep group B left foot diabetic foot ulceration. 20. Status post packed red blood cell transfusion x3. 21. Left foot cellulitis. 22. Chronic microvascular ischemic disease of the brain and cerebral cortical atrophy of the brain. 23. Sepsis with Pseudomonas aeruginosa and group B Streptococcus beta hemolytic Streptococcus left foot diabetic foot ulcerations and cellulitis. 24. Kidney injury with underlying chronic kidney disease. 25. Hypertensive diabetic chronic kidney disease. 26. Stage III chronic kidney disease secondary to hypertension and vasculopathy. 27. Anemia. 28. Monoclonal gammopathy of unknown significance. 29. Transient and episodic confusion and disorientation, probably secondary to transient cerebral hypoperfusion and uncontrolled diabetes mellitus. 30. Sepsis. 1. Group B Streptococcus and Pseudomonas aeruginosa, left foot diabetic foot ulceration and gangrene and cellulitis. 2. History of chronic osteomyelitis of the left foot. 3. High-grade fever. 4. Questionable sepsis versus systemic inflammatory response syndrome. 5. Tachycardia. 6 Hypotension. 7. Questionable and possible encephalopathy versus toxic metabolic encephalopathy with episodic confusion and disorientation. 8. Type 2 diabetes mellitus. 9. Anemia of chronic disease. 10. Status post packed red blood cell transfusion x2. 11. Gait dysfunction. 12. Deconditioning. 13. Status post left foot big toe amputation,2nd metatarsal amputation, wound debridement and 3rd and 4th toe nail removal. 14. Persistent refractory leukocytosis with granulocytosis 15. Normocytic anemia. 16. Uncontrolled type 2 diabetes mellitus with hyperglycemia. 17. Microvascular ischemic disease of the brain. 18. Cerebral cortical atrophy of the brain. 19. Gait dysfunction with nonweightbearing status of the left foot. 20. Severe peripheral vascular disease of the lower extremity with severe bilateral tibial and distal lower extremities severe occlusive disease with ankle-brachial index is of less than 1. 21. History of hypertension. 22. History of gout and hyperuricemia. 23. History of gouty arthritis. 24. Dilated cardiomyopathy with ejection fraction of 35% with severe mitral and tricuspid regurgitation. 25. Acute kidney injury with underlying chronic kidney disease stage III. 26. Proteinuria and microscopic hematuria. 1. High-grade fever and new fever. 2. Tachycardia. 3. Hypotension. 4. Questionable sepsis versus systemic inflammatory response syndrome with high-grade fever, tachycardia, hypotension. 5. Persistent refractory leukocytosis with granulocytosis. 6. Normocytic anemia. 7. Status post packed red blood cell transfusion x2. 8. Uncontrolled type 2 noninsulin-requiring diabetes mellitus with hyperglycemia. 9. Left foot Pseudomonas aeruginosa, group B Streptococcus with beta-hemolytic left foot, and left foot diabetic ulceration and possible diabetic left foot gangrene. 10. Proteinuria. 11. Microscopic hematuria. 12. Bacteriuria. 13. Left foot group B streptococcal beta-hemolytic and Pseudomonas aeruginosa left foot diabetic foot ulceration. 14. Episodic disorientation and confusion, etiology undetermined. 15. Questionable toxic metabolic encephalopathy. 16. Hyperglycemia secondary to uncontrolled diabetes mellitus. 17. Status post packed red blood cell transfusion x2. 18. Persistent refractory leukocytosis. 19. Left foot diabetic ulceration and diabetic cellulitis. 20. Dilated cardiomyopathy. 21. History of poor compliance and noncompliance. 22. History of hyperuricemia and gout. 23. 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 24. Gait dysfunction. 25. Deconditioning. 1. Left foot diabetic ulceration and nonhealing diabetic ulceration with possible diabetic gangrene of the left foot and great toe and the left foot toes with group B Streptococcus and Pseudomonas aeruginosa, cellulitis and diabetic foot gangrene of the left foot. 2. Uncontrolled diabetes mellitus with elevated hemoglobin A1c. 3. Fever. 4. Questionable sepsis. 5. Tachycardia. 6. Possible sepsis versus systemic inflammatory response syndrome. 7. Fever. 8. Transient hypotension. 9. Dilated cardiomyopathy. 10. Persistent refractory leukocytosis. 11. Normocytic anemia status post packed red blood cell transfusion. 12. Granulocytosis. 13. Acute kidney injury with underlying chronic kidney disease, stage IV. 14. Uncontrolled diabetes mellitus with hyperglycemia and an elevated hemoglobin A1c and hyperfructosemia. 15. History of poor compliance and noncompliance. 16. History of hyperuricemia and gout. 17. Severe peripheral vascular disease. 18. History of severe peripheral vascular disease of the lower extremity. 19. Severe mitral and tricuspid regurgitation. 20. Cardiomyopathy with ejection fraction of around 35%. 21. History of poor compliance. 22. History of chronic osteomyelitis of the left foot and partial amputation of the left foot second toe. 1. Fever. 2. Sinus tachycardia. 3. Pseudomonas nose group. Group B streptococcus group B beta hemolytic left foot diabetic foot ulcerations and cellulitis and gangrene. 4. Severe peripheral vascular disease. 5. Persistent refractory leukocytosis with granulocytosis. 6. Anemia with decreasing hemoglobin/hematocrit. 7. Elevated erythrocyte sedimentation rate of 122. 8. Chronic kidney disease, stage 3. 9. Hyperglycemia secondary to uncontrolled diabetes mellitus with hemoglobin A1c of 8.6 and hyper fructose anemia. 10. Transaminitis. 11. Iron-deficiency anemia. 12. Hypertriglyceridemia. 13. Elevated C-reactive protein of greater than 15. 14. Lactic acidosis. 15. Status post packed red blood cell transfusions x2. 16. Left foot erosive changes. 17. Severe peripheral vascular disease of bilateral popliteal trifurcation and tibial disease with normal resting ankle-brachial indices. 18. Chronic osteomyelitis of the left foot with bony destruction and sclerosis around the first metatarsophalangeal joint and partial amputation of the second proximal phalanx. 19. Severe degenerative joint disease of the left midfoot. 20. Left axis deviation. 21. Acute kidney injury with underlying chronic kidney disease. 22. Metabolic acidosis. 23. Hypertensive diabetic chronic kidney disease stage 3 without proteinuria. 24. Monoclonal gammopathy of unknown significance. 25. Severe mitral, tricuspid regurgitation with cardiomyopathy, left ventricular ejection fraction of 35% to 40%. 26. Left foot diabetic foot ulceration and gangrene. 27. Congestive heart failure with reduced ejection fraction. 28. Nonhealing left foot diabetic ulceration. 29. Sepsis with left foot cellulitis and diabetic foot ulceration with Pseudomonas secondary to Pseudomonas aeruginosa and Streptococcus group B beta hemolytic Streptococcus. 30. Questionable and possible delirium versus encephalopathy. 31. Gait dysfunction. 32. Deconditioning. 33. Constipation. 34. Hypovitaminosis D. 35. Prostatic hypertrophy. 36. Hyperlipidemia. 37. Hyperuricemia. 38. Hyperglycemia. 39. Uncontrolled diabetes mellitus with hyperglycemia. 40. Gait dysfunction. 41. History of poor compliance and noncompliance. 1. Left foot Pseudomonas aeruginosa and group B beta hemolytic strep, left foot diabetic foot ulceration and cellulitis. 2. Sepsis secondary to Pseudomonas aeruginosa and group B beta hemolytic strep, left diabetic foot ulceration and cellulitis. 3. Hypertension. 4. Tachycardia. 5. Anemia. 6. Status post packed red blood cell transfusion one unit. 7. Leukocytosis with granulocytosis. 8. Elevated erythrocyte sedimentation rate of 122. 9. Iron-deficiency. 10. Acute kidney injury with underlying chronic kidney disease, stage IV. 11. Uncontrolled diabetes mellitus with hyperglycemia and elevated hemoglobin A1c of 8.6 and elevated fructose, a mean of 329. 12. Transient lactic acidosis. 13. Transaminitis. 14. Hypertriglyceridemia. 15. Elevated C-reactive protein of greater than 15. 16. Gait dysfunction. 17. Deconditioning. 18. Metabolic acidosis. 19. 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 20. Severe mitral, tricuspid regurgitation and systolic congestive heart failure. 21. Left foot cellulitis and left foot diabetic ulceration. 22. Left diabetic foot ulceration and possible gangrene or pre-gangrenous condition of the left foot toes. 23. Left foot second digit amputation. 24. Peripheral vascular disease. 25. Left foot second toe amputation with cyanosis and mummification of the toes and forefoot of the left foot. 26. Severe tibial disease of the lower extremity. 27. Peripheral vascular disease. 28. Anemia of chronic disease. 29. Bilateral popliteal trifurcation and tibial disease. 30. Left anterior hemiblock. 1. Left foot Pseudomonas aeruginosa and group B Streptococcus beta hemolytic left foot cellulitis and diabetic foot ulcer. 2. Severe peripheral vascular disease of the lower extremity. 3. Normocytic anemia with decreasing hemoglobin. 4. Leukocytosis with granulocytosis. 5. Uncontrolled diabetes mellitus with hyperglycemia. 6. Acute kidney injury with underlying chronic kidney disease stage III/IV. 7. Transaminitis. 8. Probably anemia of chronic kidney disease. 9. Acute kidney injury with underlying chronic kidney disease. 10. Metabolic acidosis. 11. Hypertensive diabetic chronic kidney disease. 12. [id number]-[id number] mitral regurgitation and elcjpqar-ea-rajtjk tricuspid regurgitation. 13. Dilated cardiomyopathy with ejection fraction of 35%. 14. Sepsis. 15. Hypertension. 16. Gait dysfunction. 17. Deconditioning. 18. Bilateral lower extremity peripheral vascular disease. 19. History of poor compliance and noncompliance. 20. History of hyperuricemia and gout. 1. Left foot cellulitis versus gangrene versus pregangrenous state. 2. Sepsis. 3. Tachycardia. 4. Transient episodic hypotension. 5. Leukocytosis with granulocytosis 6. Elevated erythrocyte sedimentation rate of 122. 7. Normocytic anemia. 8. Chronic kidney disease stage 4 with acute kidney injury. 9. Uncontrolled noninsulin-requiring diabetes mellitus with hyperglycemia and hemoglobin A1c of 8.6. 10. Possible iron-deficiency. 11. Hypertriglyceridemia. 12. Elevated C-reactive protein of greater than 15. 13. Transient lactic acidosis. 14. Transaminitis. 15. Deconditioning. 16. Gait dysfunction. 17. Anemia with decreasing hemoglobin and hematocrit. 18. Metabolic acidosis. 19. Diabetic hypertensive chronic kidney disease. 20. Chronic kidney disease stage 3 without proteinuria. 21. Severe mitral and tricuspid regurgitation. 22. Systolic congestive heart failure. 23. Dilated ischemic cardiomyopathy, etiology undetermined. 1. Left foot cellulitis with diabetic foot disease and possible abscess versus possible osteomyelitis. 2. History of left foot second toe amputation. 3. Hypertension. 4. Tachycardia. 5. Fever. 6. Poor compliance and noncompliance. 7. Leukocytosis with granulocytosis. 8. Normocytic anemia. 9. Elevated erythrocyte sedimentation rate of 122. 10. Chronic kidney disease, stage IV with acute kidney injury. 11. Transient lactic acidosis. 12. History of hyperuricemia. 13. Hypertriglyceridemia. 14. Aortic calcification. 15. Bilateral lower extremity popliteal trifurcation and tibial peripheral vascular disease. 16. Left foot first metatarsophalangeal joint bony destruction and sclerosis, chronic osteomyelitis. 17. 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 18. 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 19. Sinus tachycardia with left anterior hemiblock. 20. Deconditioning. 21. History of poor compliance. 22. Chronic dilated ischemic cardiomyopathy with ejection fraction of . 23. History of hypertension. 24. History of heart failure with reduced ejection fraction of 35%. 25. Pulmonary hypertension with right ventricular systolic pressure of 40 mmHg. 26. Left ventricular global hypokinesis and moderately impaired left ventricular systolic function. 27. Mild aortic regurgitation. 28. Moderate to severe mitral regurgitation. 29. Moderate tricuspid regurgitation. 30. History of constipation. 31. Hypovitaminosis D. 32. History of iron-deficiency anemia. 33. Prostatic hypertrophy. 34. Insulin-requiring diabetes mellitus. 35. Hyperlipidemia. 36. History of peripheral vascular disease. 37. Hyperuricemia. 1. Left foot diabetic foot ulceration versus left foot abscess versus left foot toe osteomyelitis. 2. Tachycardia. 3. Leukocytosis with granulocytosis. 4. Questionable systemic inflammatory response syndrome. 5. Uncontrolled diabetes mellitus with hyperglycemia. 6. Chronic kidney disease stage IV. 7. Mild transaminitis. 8. History of hypertension. 9. Hyperlipidemia. 10. History of prostatic hypertrophy. 11. History of iron-deficiency anemia. 12. History of hypovitaminosis D. 13. History of dilated cardiomyopathy. 14. History of pulmonary hypertension. 15. History of moderate tricuspid regurgitation and mitral regurgitation. 16. Hyperuricemia. PLAN: At this time, the patient is still to be continued on all the therapeutic intervention as per the MAR of today including IV meropenem as per Infectious Disease. We are still awaiting for further vascular surgical intervention and decision regarding transmetatarsal amputation versus the right and left below-knee amputation. The patient is to be continued on all the therapeutic intervention as per the MAR of today, which was reviewed. The patient's midodrine is increased to 5 mg three times a day due to persistent hypotension. The patient will be continued on sliding scale and basal and bolus insulin coverage. The patient will be continued on all the therapeutic intervention as per the MAR of today, which is reviewed and updated. The patient has been ordered out of bed to chair. The patient has been ordered nonweightbearing to the left foot and left lower extremity. At present, the patient's further management will be depended upon the patient's clinical condition, hemodynamic status and as per the patient response to therapeutic intervention as per the patient's diagnostic test results and as per recommendation by all the physicians involved in the care of the patient.. The patient's family has been explained about the patient's condition. Need for further therapeutic intervention has been explained to the patient and family by all the physicians involved the care of the patient, which they acknowledged to understand. The patient's daughter and the patient's family and the patient, himself understand that the possible intervention and surgical intervention will be needed for the left foot, either a left below-knee amputation of left foot transmetatarsal amputation. At this time, the patient will be continued on above therapeutic intervention as per the MAR. We are still awaiting for definitive surgical intervention. Dictated and electronically signed, not read. Niranjan Ling MD [facility]
--- NOTE | 2018-12-07 13:51 | PN ---
DATE: 12/07/2018 SUBJECTIVE: The patient has no complaints. PHYSICAL EXAMINATION: VITAL SIGNS: Blood pressure 107/61. The heart rate is in the 90s. NECK: Negative JVD. LUNGS: Without rales. HEART: S1, S2. EXTREMITIES: Bandaged and unchanged. LABORATORY DATA: Hemoglobin is 11.4. Chemistries, BUN and creatinine 49 and 2.3. IMPRESSION: 1. Peripheral vascular disease. 2. Diabetes mellitus. 3. Status post digital amputation. 4. Dilated cardiomyopathy. 5. Coronary artery disease. 6. Anemia. PLAN: Given these findings, the patient despite his dilated cardiomyopathy and high probability for CAD is stable from a cardiac perspective. Milton Murrell MD
--- NOTE | 2018-12-08 00:20 | PN ---
DATE: 12/07/2018 SUBJECTIVE: The patient is in bed, in no acute distress, nontoxic. PHYSICAL EXAMINATION: VITAL SIGNS: Temperature is 98, blood pressure is 107/60, and respiratory rate of 18. HEENT: Unremarkable. NECK: Supple. LUNGS: Have decreased breath sounds. CARDIOPULMONARY: Normal S1 and S2. ABDOMEN: Soft. LABORATORY DATA: Reveals the patient's white count of 11,000. Chemistries are noted and urinalysis is noted. ASSESSMENT AND PLAN: This is a 73-year-old male with a left helix second toe and second metatarsal amputation, postoperative day #14. Charcot's foot with Proteus and Pseudomonas, on meropenem. We will follow with you. The patient is scheduled for surgery on Thursday. Tai Landaverde MD
[2018-12-08] MEDS: Pantoprazole 40 mg EC Tab PO SCH (05:54)
--- NOTE | 2018-12-08 07:17 | CP.PCM.PN ---
<Sylwia Chambers - Last Filed: 12/08/18 11:31> Subjective - Date & Time of Evaluation Date of Evaluation: 12/08/18 Time of Evaluation: 07:12 - Subjective Subjective: Sylwia Chambers DO, PGY-2: Progress Note for Dr. Ling Patient was seen and examined at bedside. He reports sleeping well. Nurse reports he had no complaints overnight. The patient reports he is scheduled for surgery tonight, though chart review indicates he will be going on Thursday. On a subsequent encounter, patient was found to have a drug exanthem on the bilateral trunk. Order were placed. Objective - Vital Signs/Intake and Output Vital Signs (last 24 hours): Temp Pulse Resp BP Pulse Ox 98.5 F 102 H 18 100/63 98 12/07/18 23:27 12/07/18 23:27 12/07/18 23:27 12/07/18 23:27 12/07/18 23:27 Intake and Output: 12/08/18 12/08/18 06:59 18:59 Intake Total 480 Output Total 1000 Balance -520 - Medications Medications: Current Medications Acetaminophen (Tylenol 325mg Tab) 650 mg PO Q6H PRN PRN Reason: Pain, Mild (1-3) Last Admin: 12/07/18 11:26 Dose: 650 mg Acetaminophen (Tylenol 325mg Tab) 650 mg PO Q6 PRN PRN Reason: Fever >100.4 F Dextrose (Dextrose 50% Inj) 0 ml IV STAT PRN; Protocol PRN Reason: Hypoglycemia Protocol Docusate Sodium (Colace) 100 mg PO TID [facility] Last Admin: 12/07/18 17:05 Dose: 100 mg Ferrous Gluconate (Fergon) 324 mg PO TID [facility] Last Admin: 12/07/18 17:05 Dose: 324 mg Heparin Sodium (Porcine) (Heparin) 5,000 units SC Q8 [facility]; Protocol Last Admin: 12/08/18 05:55 Dose: 5,000 units Dextrose (Dextrose 5% In Water 1000 Ml) 1,000 mls @ 0 mls/hr IV .Q0M PRN; Protocol PRN Reason: Hypoglycemia Protocol Meropenem/Sodium Chloride (Merrem Iv 500 Mg/Ns 50 Ml) 500 mg in 50 mls @ 100 mls/hr IVPB Q12 [facility]; Protocol Last Admin: 12/07/18 21:55 Dose: 100 mls/hr Insulin Human Lispro (Humalog Med) 0 units SC AC [facility]; Protocol Last Admin: 12/07/18 16:26 Dose: 3 units Insulin Human NPH (Humulin N) 20 units SC ACBD [facility] Last Admin: 12/07/18 16:26 Dose: 20 units Midodrine (Proamatine) 5 mg PO TID [facility] Last Admin: 12/07/18 17:05 Dose: 5 mg Ondansetron HCl (Zofran Inj) 4 mg IVP Q4H PRN PRN Reason: Nausea/Vomiting Pantoprazole Sodium (Protonix Ec Tab) 40 mg PO 0600 [facility] Last Admin: 12/08/18 05:54 Dose: 40 mg Polyethylene Glycol (Miralax) 17 gm PO BID [facility] Last Admin: 12/07/18 17:06 Dose: 17 gm Sodium Hypochlorite (Dakins Solution 0.25%) 20 ml TOP DAILY [facility] Last Admin: 12/07/18 10:09 Dose: 1 applic Tamsulosin HCl (Flomax) 0.4 mg PO DAILY [facility] Last Admin: 12/07/18 10:08 Dose: 0.4 mg Vitamin B Complex/Vit C/Folic Acid (Nephro-Sumit) 1 tab PO 0800 [facility] Last Admin: 12/07/18 10:08 Dose: 1 tab - Labs Labs: 12/07/18 08:00 12/07/18 07:00 PT 14.7 SECONDS (9.4-12.5) H 11/25/18 13:05 INR 1.30 11/25/18 13:05 APTT 26.3 Seconds (26.9-38.3) L 11/25/18 13:05 - Constitutional Appears: Non-toxic, No Acute Distress - Head Exam Head Exam: ATRAUMATIC, NORMOCEPHALIC - Eye Exam Eye Exam: EOMI, Normal appearance - ENT Exam ENT Exam: Mucous Membranes Moist, Normal Oropharynx - Neck Exam Neck Exam: Normal Inspection - Respiratory Exam Respiratory Exam: NORMAL BREATHING PATTERN. absent: Accessory Muscle Use - Cardiovascular Exam Cardiovascular Exam: RRR, +S1, +S2 - GI/Abdominal Exam GI & Abdominal Exam: Soft, Normal Bowel Sounds. absent: Tenderness, Rebound - Extremities Exam Extremities Exam: Normal Inspection. absent: Calf Tenderness Additional comments: left foot is wrapped. - Back Exam Back Exam: NORMAL INSPECTION. absent: CVA tenderness (L), CVA tenderness (R) - Neurological Exam Neurological Exam: Alert, Awake, Oriented x3 - Psychiatric Exam Psychiatric exam: Normal Affect, Normal Mood - Skin Skin Exam: Dry, Intact, Normal Color, Warm Assessment and Plan - Assessment and Plan (Free Text) Assessment: 73 year old male with a past medical history of atrial fibrillation, gout, BPH, and DM II who presented to [facility] for a chronic non-healing left foot ulcer. 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 - Surgery plans on taking patient to the OR on Thursday - Cilostazol 50 mg BID - Meropenem 500 q12h - Morphine 2 mg q4h PRN for severe pain - ID is following 2) Atrial fibrillation - Metoprolol 25 mg q8h [facility] 3) Hypotension - Midodrine 2.5 mg TID 4) DM II - NPH 15 units ACBD - ISS Lispro (medium) - Hypoglycemia protocol instituted 5) EMIL on CKD - Gentle NS - Nephrology is following - Nephrovite 1 tab 0800 6) Gout - Allopurinol 100 mg daily 7) BPH - Flomax 0.4 mg 8) CAD - Aspirin 81 mg - Atorvastatin 20 mg DIN 9) Constipation - Docusate 100 mg TID 10) GI/DVT prophylaxis - Protonix 40 mg - Heparin 5,000 units q8 11) Persistent Leukocytosis - Flow cytometry reads as follows: no immunophenotypic evidence for abnormal myeloid maturation, an increase in blast or a lymphoproliferative disorder 12) Drug exanthem - Solumedrol 60 mg IVP once - Famotidine 20 mg BID - Benadryl 25 mg IVP once Case was reviewed and discussed with attending physician, Dr. Ling <Niranjan Ling - Last Filed: 12/13/18 14:25> Objective - Vital Signs/Intake and Output Vital Signs (last 24 hours): Temp Pulse Resp BP Pulse Ox 98.3 F 94 H 17 93/57 L 99 12/12/18 14:00 12/12/18 14:00 12/12/18 14:00 12/12/18 14:00 12/12/18 14:00 - Medications Medications: Current Medications Acetaminophen (Tylenol 325mg Tab) 650 mg PO Q6 PRN PRN Reason: TEMP>=99.5F Last Admin: 12/12/18 22:42 Dose: 650 mg Acetaminophen (Tylenol 650 Mg Supp) 650 mg RC Q6H PRN PRN Reason: TEMP>=99.5F Dextrose (Dextrose 50% Inj) 0 ml IV STAT PRN; Protocol PRN Reason: Hypoglycemia Protocol Docusate Sodium (Colace) 100 mg PO TID [facility] Last Admin: 12/13/18 10:27 Dose: 100 mg Ferrous Gluconate (Fergon) 324 mg PO TID [facility] Last Admin: 12/13/18 10:28 Dose: 324 mg Heparin Sodium (Porcine) (Heparin) 5,000 units SC Q8 [facility]; Protocol Last Admin: 12/13/18 05:03 Dose: 5,000 units Dextrose (Dextrose 5% In Water 1000 Ml) 1,000 mls @ 0 mls/hr IV .Q0M PRN; Protocol PRN Reason: Hypoglycemia Protocol Insulin Human Lispro (Humalog Med) 0 units SC AC [facility]; Protocol Last Admin: 12/13/18 12:48 Dose: 5 units Insulin Human NPH (Humulin N) 17 units SC ACBD [facility] Last Admin: 12/13/18 10:28 Dose: 17 unit Metoclopramide HCl (Reglan) 10 mg IV ONCE PRN PRN Reason: Nausea/Vomiting Midodrine (Proamatine) 10 mg PO TID [facility] Last Admin: 12/13/18 10:28 Dose: 10 mg Nystatin (Nystop Topical Powder) 0 gm TOP BID [facility] Last Admin: 12/13/18 10:31 Dose: 1 appl Ondansetron HCl (Zofran Inj) 4 mg IVP Q4H PRN PRN Reason: Nausea/Vomiting Pantoprazole Sodium (Protonix Ec Tab) 40 mg PO 0600 [facility] Last Admin: 12/13/18 05:03 Dose: 40 mg Polyethylene Glycol (Miralax) 17 gm PO BID [facility] Last Admin: 12/13/18 10:28 Dose: 17 gm Tamsulosin HCl (Flomax) 0.4 mg PO DAILY [facility] Last Admin: 12/13/18 10:28 Dose: 0.4 mg Vitamin B Complex/Vit C/Folic Acid (Nephro-Sumit) 1 tab PO 0800 [facility] Last Admin: 12/13/18 10:28 Dose: 1 tab - Labs Labs: 12/13/18 07:00 12/13/18 07:00 PT 12.6 SECONDS (9.4-12.5) H 12/10/18 13:10 INR 1.12 12/10/18 13:10 APTT 30.3 Seconds (26.9-38.3) 12/10/18 13:10 Attending/Attestation - Attestation I have personally seen and examined this patient.: Yes I have fully participated in the care of the patient.: Yes I have reviewed all pertinent clinical information, including history, physical exam and plan: Yes Notes (Text): Please see/read my dictated notes.
[2018-12-08 07:27] LABS: HEMOGLOBIN 11.8 g/dL (14.0-18.0); MEAN CELL VOLUME 94.2 fl (80.0-105.0); MEAN CORPUSCULAR HEMOGLOBIN 31.3 pg (25.0-35.0); MEAN CORPUSCULAR HGB CONC 33.2 g/dl (31.0-37.0); MEAN PLATELET VOLUME 9.4 fl (7.0-11.0); RBC 3.77 10^6/uL (3.5-6.1); RED CELL DISTRIBUTION WIDTH 16.4 % (11.5-14.5); WHITE BLOOD COUNT 12.4 10^3/uL (4.5-11.0)
[2018-12-08 07:41] LABS: ALBUMIN 3.8 g/dL (3.0-4.8); BILIRUBIN,DIRECT 0.3 mg/dL (0.0-0.4); CALCIUM 10.4 mg/dL (8.4-10.5)
[2018-12-08] MEDS: Insulin Human NPH 1 UNITS/0.01 ML SC SCH ×2 (08:32→17:01)
[2018-12-08] MEDS: Insulin Lispro (humaLOG) MEDIUM Coverage SC SCH ×3 (08:32→17:00)
[2018-12-08] MEDS: Dakin's Topical 0.25%-Half Strength (480 ml) TOP SCH (09:12)
[2018-12-08] MEDS: MEROPENEM 500 MG in NS 500 MG/50 ML BAG IVPB SCH ×2 (09:35→22:04)
[2018-12-08] MEDS: Multivitamin Vitamin B Complex (Nephro-Vite) Tab PO SCH (09:45)
--- NOTE | 2018-12-08 09:54 | PN ---
DATE: 12/08/2018 SUBJECTIVE: The patient is in bed, seen in 575, bed two. No fevers and chills. PHYSICAL EXAMINATION: VITAL SIGNS: Temperature is 98, blood pressure is 100/60, respiratory rate of 18. HEENT: Unremarkable. NECK: Supple. LUNGS: Have decreased breath sounds. HEART: Normal S1 and S2. ABDOMEN: Soft. LABORATORY DATA: Examination reveals a white count of 11,800, hemoglobin of 11, and creatinine is 2.3. Urinalysis is noted. ASSESSMENT AND PLAN: This is a 73-year-old male with a left leg second toe and second metatarsal amputation post procedure day #15 with Charcot's foot with Proteus and Pseudomonas, currently on meropenem. The patient is scheduled for further surgery on Thursday. Review of orders reveals the meropenem to be active. Tai Landaverde MD
--- NOTE | 2018-12-08 10:45 | CP.PCM.PN ---
Subjective - Date & Time of Evaluation Date of Evaluation: 12/08/18 Time of Evaluation: 10:42 - Subjective Subjective: PGY1 General Surgery Progress Note for Dr. Sosa Patient seen and evaluated at bedside this morning. No acute events overnight. No new complaints. Dressing was changed at bedside this morning. Patient tolerated pain with Tylenol. Patient otherwise denies headache, chest pain, shortness of breath, abdominal pain, nausea, vomiting, fever, and/or chills. Objective - Vital Signs/Intake and Output Vital Signs (last 24 hours): Temp Pulse Resp BP Pulse Ox 98.6 F 66 18 104/70 95 12/08/18 07:56 12/08/18 07:56 12/08/18 07:56 12/08/18 07:56 12/08/18 07:56 Intake and Output: 12/08/18 12/08/18 06:59 18:59 Intake Total 480 Output Total 1000 Balance -520 - Medications Medications: Current Medications Acetaminophen (Tylenol 325mg Tab) 650 mg PO Q6H PRN PRN Reason: Pain, Mild (1-3) Last Admin: 12/08/18 09:31 Dose: 650 mg Acetaminophen (Tylenol 325mg Tab) 650 mg PO Q6 PRN PRN Reason: Fever >100.4 F Dextrose (Dextrose 50% Inj) 0 ml IV STAT PRN; Protocol PRN Reason: Hypoglycemia Protocol Docusate Sodium (Colace) 100 mg PO TID [facility] Last Admin: 12/08/18 09:33 Dose: 100 mg Famotidine (Pepcid) 20 mg PO 1000,2200 [facility] Stop: 12/11/18 10:01 Ferrous Gluconate (Fergon) 324 mg PO TID [facility] Last Admin: 12/08/18 09:33 Dose: 324 mg Heparin Sodium (Porcine) (Heparin) 5,000 units SC Q8 [facility]; Protocol Last Admin: 12/08/18 05:55 Dose: 5,000 units Dextrose (Dextrose 5% In Water 1000 Ml) 1,000 mls @ 0 mls/hr IV .Q0M PRN; Protocol PRN Reason: Hypoglycemia Protocol Meropenem/Sodium Chloride (Merrem Iv 500 Mg/Ns 50 Ml) 500 mg in 50 mls @ 100 mls/hr IVPB Q12 [facility]; Protocol Last Admin: 05/15/19 09:35 Dose: 100 mls/hr Insulin Human Lispro (Humalog Med) 0 units SC [facility]; Protocol Last Admin: 12/08/18 08:32 Dose: Not Given Insulin Human NPH (Humulin N) 15 units SC [facility] Midodrine (Proamatine) 5 mg PO TID [facility] Last Admin: 12/08/18 09:33 Dose: 5 mg Ondansetron HCl (Zofran Inj) 4 mg IVP Q4H PRN PRN Reason: Nausea/Vomiting Pantoprazole Sodium (Protonix Ec Tab) 40 mg PO 0600 [facility] Last Admin: 12/08/18 05:54 Dose: 40 mg Polyethylene Glycol (Miralax) 17 gm PO BID [facility] Last Admin: 12/07/18 17:06 Dose: 17 gm Sodium Hypochlorite (Dakins Solution 0.25%) 20 ml TOP DAILY [facility] Last Admin: 12/07/18 10:09 Dose: 1 applic Tamsulosin HCl (Flomax) 0.4 mg PO DAILY [facility] Last Admin: 12/08/18 09:33 Dose: 0.4 mg Vitamin B Complex/Vit C/Folic Acid (Nephro-Sumit) 1 tab PO 0800 [facility] Last Admin: 12/08/18 09:45 Dose: 1 tab - Labs Labs: 12/08/18 07:10 12/08/18 07:10 PT 14.7 SECONDS (9.4-12.5) H 11/25/18 13:05 INR 1.30 11/25/18 13:05 APTT 26.3 Seconds (26.9-38.3) L 11/25/18 13:05 - Additional Findings Additional findings: - Constitutional Appears: Non-toxic, No Acute Distress - Head Exam Head Exam: NORMAL INSPECTION - Eye Exam Eye Exam: Normal appearance - ENT Exam ENT Exam: Mucous Membranes Moist - Respiratory Exam Respiratory Exam: NORMAL BREATHING PATTERN. absent: Accessory Muscle Use, Respiratory Distress - Cardiovascular Exam Cardiovascular Exam: absent: Bradycardia, Tachycardia - GI/Abdominal Exam GI & Abdominal Exam: Soft. absent: Distended - Extremities Exam Additional comments: foot dressing c/d/i - Neurological Exam Neurological Exam: Alert, Awake - Psychiatric Exam Psychiatric exam: Normal Affect, Normal Mood - Skin Skin Exam: Dry, Warm Assessment and Plan - Assessment and Plan (Free Text) Assessment: 73 y/o M POD#13 s/p L great toe and 2nd metatarsal amputation 2/2 chronic L foot wound and osteomyelitis Plan: - Continue wet-to-dry dressing changes w/ Dakins solution - Continue pain management - Patient on IV Abx per ID - PT/OT eval and treat - Tentative plan for OR Thursday Further recommendations per Dr. Ian Hannon PGY1
[2018-12-08] MEDS: DiphenhydrAMINE 50 mg/ml Inj IVP STA (12:09)
[2018-12-08] MEDS: POLYETHYLENE GLYCOL 3350 17 GM/Dose PACKET PO SCH ×2 (12:10→18:13)
--- NOTE | 2018-12-08 15:29 | PN ---
DATE: 12/08/2018 SUBJECTIVE: The patient is in room 575, bed two. The patient is lying in the bed. Overnight nurse's notes were reviewed. The patient stayed calm and slept well. There were no episodes of confusion or disorientation documented by the nurses. PHYSICAL EXAMINATION: GENERAL: The patient appears to be comfortable, awake, alert, responsive. VITAL SIGNS: T-max 98.5, heart rate 66-102, blood pressure 100/63 to 104/70, respirations 18, O2 sat 98%. HEENT: Head examination normocephalic, atraumatic. HEENT examination shows pinkish pale conjunctivae. Anicteric sclerae. No oropharyngeal lesion. No neck rigidity. CHEST: Kyphosis. LUNGS: Shows no audible crackle, rales or wheezing. CARDIOVASCULAR: S1, S2, regular rhythm. Questionable soft systolic murmur left sternal border, right second intercostal space, left second intercostal space. ABDOMEN: Soft, positive bowel sound. No palpable hepatosplenomegaly. GENITALIA: Male. RECTAL: Deferred. EXTREMITIES: Lower extremity shows no pitting edema, no calf tenderness, no Homans' sign. Positive left foot dressing noted. Positive decreased pulses of the lower extremity noted. MUSCULOSKELETAL: Examination as per the body mass index. NEUROLOGIC: The patient is alert, awake, responsive, is able to move upper and lower extremity without assistance. Gait examination is not tested. PSYCHIATRIC: Negative for anxiety, depression. Negative for suicidal and homicidal ideation. Negative for auditory and visual hallucination. DIAGNOSTIC DATA: 12/08/2018, WBC 12.4, hemoglobin and hematocrit , platelet 488. Sodium 135, potassium 4.6, chloride 97, CO2 of 29, BUN 50, creatinine 2.1, glucose 80, calcium 10.4, phosphorous 4.9, magnesium 2.4. LFTs are within normal limit. IMPRESSION AND PLAN: 1. Osteomyelitis of the left foot great toe and left foot with gangrenous necrosis and gouty tophi. 2. Severe bilateral lower extremity peripheral vascular disease with ankle-brachial index of less than 1. 3. Uncontrolled type 2 diabetes mellitus with hyperglycemia and elevated hemoglobin A1c and fructosaminemia. 4. History of hypertension. 5. Tachycardia. 6. High-grade fever. 7. History of hyperuricemia and gouty arthritis. 8. Questionable monoclonal gammopathy of unknown significance with elevated kappa lambda issue. 9. Gait dysfunction. 10. Deconditioning with gait dysfunction with nonweightbearing status of the left foot and left lower extremity. 11. Leukocytosis with granulocytosis. 12. Persistent refractory leukocytosis with granulocytosis. 13. Anemia with decreasing hemoglobin/hematocrit status post packed red blood cell transfusion x3. 14. Transient confusional state and disorientation, questionable delirium versus toxic metabolic encephalopathy secondary to underlying medical problems. 15. Dilated cardiomyopathy with ejection fraction of 35%. 16. [id number] mitral and tricuspid regurgitation. 17. Acute kidney injury with underlying hypertensive diabetic chronic kidney disease. 18. Hyperphosphatemia. 19. Questionable secondary hyperparathyroidism with hyperphosphatemia. 20. Gait dysfunction. 1. Acute left foot, left second toe osteomyelitis with gangrenous necrosis and gouty tophi. 2. Severe peripheral vascular disease of the lower extremity. 3. Status post left foot great toe amputation and metatarsal amputation. 4. Status post left foot wound debridement. 5. Status post left foot second and third toe nail removal. 6. Uncontrolled insulin-requiring diabetes mellitus with hyperglycemia. 7. Left foot diabetic foot ulceration and cellulitis and acute osteomyelitis. 8. Persistent refractory leukocytosis with granulocytosis. 9. Normocytic anemia, status post packed red blood cell transfusion x3. 10. Acute kidney injury with underlying hypertensive diabetic chronic kidney disease stage III. 11. History of hyperuricemia and gout. 12. Gait dysfunction. 13. Delirium with episodic and transient confusional and disorientation state versus delirium. 14. Possible underlying toxic metabolic encephalopathy secondary to multiple comorbidities and medical comorbidities. 15. History of hypertension. 16. History of cardiomyopathy with left ventricular ejection fraction of 35%. 17. Questionable and possible monoclonal gammopathy of unknown significance. 18. Deconditioning. 19. Hypotension. 1. Left foot great toe and left foot acute osteomyelitis secondary to Pseudomonas aeruginosa, Proteus mirabilis and beta hemolytic group B strep. 2. Severe peripheral vascular disease of the lower extremity. 3. Refractory slow resolving leukocytosis with granulocytosis. 4. Normocytic anemia with decreasing hemoglobin and hematocrit. 5. Status post packed red blood cell transfusion. 6. Uncontrolled diabetes mellitus with hyperglycemia and elevated hemoglobin A1c. 7. Severe peripheral vascular disease of the lower extremity. 8. Acute kidney injury with underlying hypertensive diabetic chronic kidney disease. 9. Normocytic anemia, status post packed red blood cell transfusion x2. 10. Gouty tophi and history of gouty arthritis and hyperuricemia. 11. History of hypertension. 12. Presently hypotension. 13. Tachycardia. 14. Dilated cardiomyopathy with left ventricle ejection fraction around 35%. 15. Severe tricuspid and mitral regurgitation. 16. History of severe noncompliance and poor compliance. 17. Severe peripheral vascular disease. 18. Gait dysfunction. 19. Deconditioning. 20. Transient confusional state versus delirium versus encephalopathy secondary to underlying multiple comorbidity. 21. Gait dysfunction with nonweightbearing status of the left foot. 22. Status post left foot great toe amputation and metatarsal amputation and debridement of the left foot wound and removal of the left foot second and third toe. 1. Left foot great toe and left foot acute osteomyelitis. 2. Non-hemolyzed hyperkalemia. 3. Acute kidney injury and underlying hypertensive/diabetic chronic kidney disease stage 3/4. 4. Leukocytosis with granulocytosis. 5. Anemia. 6. Status post packed red blood cell transfusion x3. 7. Transient confusional state with possible delirium and toxic metabolic encephalopathy. 8. Hypotension. 9. Tachycardia. 10. High-grade fever. 11. Diabetic ulceration of the left foot with acute osteomyelitis of the left foot and toe. 12. Severe peripheral vascular disease of the lower extremity. 13. History of hypertension. 14. History of type 2 diabetes mellitus. 15. History of peripheral vascular disease. 16. History of hyperuricemia and gout. 17. History of [id number] diabetes mellitus. 18. History of poor compliance and noncompliance. 1. Left foot great toe acute osteomyelitis with gangrenous necrosis and gouty tophi. 2. Status post left foot debridement and amputation of the left foot great toe and second metatarsal amputation. 3. Status post debridement of the left foot diabetic foot ulceration and removal of the left foot third and fourth toe nails. 4. Fever. 5. Tachycardia. 6. Persistent leukocytosis with granulocytosis. 7. Normocytic anemia. 8. Status post packed red blood cell transfusion x3. 9. Elevated erythrocyte sedimentation rate of 122. 10. Uncontrolled diabetes mellitus with hyperglycemia and hypoglycemia with hemoglobin A1c of 8.6 and fructosamine of 329. 11. Acute kidney injury with underlying chronic kidney disease stage 3/4. 12. Proteinuria, microscopic hematuria, bacteriuria. 13. 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 14. Proteus mirabilis, Pseudomonas aeruginosa,and beta-hemolytic Streptococcus group B left foot diabetic foot ulceration and acute osteomyelitis. 15. Gait dysfunction. 16. Deconditioning with nonweightbearing status of the left foot. 17. Sepsis with Pseudomonas aeruginosa, Proteus mirabilis and group B Streptococcal left foot acute osteomyelitis, cellulitis and diabetic foot ulceration. 18. Questionable delirium versus toxic metabolic encephalopathy. 19. Constipation. 20. Iron deficiency. 21. Prostatic hypertrophy. 22. Hyperuricemia and gouty arthritis. 23. Hypotension. 1. Left foot great toe acute osteomyelitis with gangrenous necrosis and gouty tophi. 2. Status post left foot debridement and amputation of the left foot great toe and second metatarsal. 3. Status post debridement of the left foot and removal of the left foot third and fourth toe nails. 4. Fever. 5. Tachycardia. 6. Hypotension. 7. Persistent refractory leukocytosis with granulocytosis. 8. Elevated erythrocyte sedimentation rate 222. 9. Acute kidney injury with underlying chronic kidney disease stage III to IV. 10. Uncontrolled insulin-requiring diabetes mellitus with hemoglobin A1c of 8.6 and fructosamine of 329. 11. Lactic acidosis. 12. Elevated C-reactive protein of greater than 15. 13. Hypertriglyceridemia. 14. Decreased HDL of 18. 15. Questionable iron deficiency. 16. Questionable delirium with episodic forgetfulness and disorientation versus toxic metabolic encephalopathy. 17. Proteinuria, microscopic hematuria, and bacteriuria. 18. Questionable monoclonal gammopathy of unknown significance with elevated total kappa/lambda ratio. 19. Left foot great toe Proteus mirabilis, Pseudomonas aeruginosa, and beta hemolytic strep group B osteomyelitis and diabetic foot ulceration. 20. Status post packed red blood cell transfusion x3. 21. Gait dysfunction. 22. Deconditioning. 23. History of gout and hyperuricemia. 24. Acute kidney injury with underlying hypertensive and diabetic chronic kidney disease stage III/IV. 25. Severe mitral and tricuspid regurgitation with systolic congestive heart failure, left ventricle ejection fraction of 35% to 40%. 26. Encephalopathy. 27. Constipation. 28. Prostatic hypertrophy. 1. Acute osteomyelitis of the left foot great toe. 2. Episodic confusion, forgetfulness and disorientation, etiology unclear, questionable delirium versus encephalopathy. 3. Persistent leukocytosis. 4. 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 5. Status post left foot great toe amputation and fifth metatarsal left foot great toe amputation and metatarsal amputation. 6. 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 7. Uncontrolled diabetes mellitus with hypoglycemia. 8. Recurrent high-grade fever. 9. High-grade fever. 10. Tachycardia. 11. Hypotension. 12. History of dilated cardiomyopathy, etiology undetermined. 13. Normocytic anemia, status post packed red blood cell transfusion x3. 14. Persistent refractory leukocytosis with granulocytosis. 15. Uncontrolled diabetes mellitus with hyperglycemia and episodic hypoglycemia. 16. Left foot diabetic foot ulceration and left foot great toe acute osteomyelitis. 17. Severe peripheral vascular disease of the lower extremity. 18. Gait dysfunction. 19. Deconditioning. 20. Noncompliance. 21. History of hypertension, hyperuricemia and gout. 22. Possible monoclonal gammopathy of unknown significance with elevated kappa lambda ratio. 1. Left foot great toe acute osteomyelitis and gangrenous necrosis with gouty tophi with acute gangrenous necrosis and acute osteomyelitis. 2. High-grade fever. 3. Tachycardia. 4. Hypotension. 5. Proteus mirabilis, Pseudomonas aeruginosa and beta hemolytic streptococcus group B left foot great toe osteomyelitis, diabetic foot ulceration and cellulitis. 6. Severe peripheral vascular disease. 7. Refractory leukocytosis. 8. Granulocytosis. 9. Elevated erythrocyte sedimentation rate of 122. 10. Normocytic anemia. 11. Status post packed red blood cell transfusion x3. 12. Uncontrolled insulin-requiring diabetes mellitus with hyperglycemia and hemoglobin A1c of 8.6 and fructosamine of 329. 13. Gait dysfunction secondary to nonweightbearing status of the left foot and toe. 14. Deconditioning. 15. Questionable delirium. 16. Iron-deficiency. 17. Hypertriglyceridemia with decreased high-density lipoprotein. 18. Lactic acidosis. 19. Elevated C-reactive protein no greater than 15. 20. Acute kidney injury with underlying chronic kidney disease, stage 3/4. 21. Proteinuria. 22. Microscopic hematuria, pyuria, bacteriuria. 23. Questionable monoclonal gammopathy of unknown significance with elevated kappa to lambda ratio. 24. Status post left foot great toe amputation and second metatarsal amputation and removal of the third and fourth toe nail and wound debridement. 25. Hypertensive diabetic chronic kidney disease. 26. Severe mitral regurgitation with systolic congestive heart failure and cardiomyopathy with ejection fraction of 35%. 27. Monoclonal gammopathy of unknown significance. 28. Episodic confusion and disorientation. 29. Constipation. 30. Insulin-requiring diabetes mellitus. 31. Hypertension. 1. 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 2. Recurrent fever. 3. Tachycardia. 4. Hypertension. 5. Persistent refractory leukocytosis. 6. Normocytic anemia. 7. Status post packed red blood cell transfusion x3. 8. Reactive thrombocytosis. 9. Granulocytosis. 10. Acute kidney injury with chronic kidney disease stage 4. 11. Status post left foot left great toe amputation and metatarsal amputation. 12. Status post left foot second and third toe removal. 13. Left foot wound debridement. 14. Severe peripheral vascular disease. 15. Uncontrolled diabetes mellitus with hyperglycemia and elevated hemoglobin A1c. 16. Transitional confusional and disorientation state. 17. Possible delirium versus toxic metabolic encephalopathy. 18. Hypotension. 1. Pseudomonas aeruginosa, Proteus mirabilis and beta hemolytic group B Streptococcus, left foot diabetic ulceration and gangrene. 2. Status post status post left foot great toe amputation and metatarsal amputation. 3. Status post removal of the second and third toe nail. 4. Status post left foot wound debridement. 5. Severe peripheral vascular disease of the lower extremity with ankle-brachial indexes of less than 1. 6. History of chronic osteomyelitis of the left foot. 7. Normocytic anemia. 8. Refractory leukocytosis, slow resolving. 9. Reactive thrombocytosis. 10. Leukocytosis with granulocytosis. 11. Status post packed red blood cell transfusion x3. 12. Hypertensive and diabetic chronic kidney disease stage III. 13. Uncontrolled diabetes mellitus with hyperglycemia and elevated hemoglobin A1c. 14. Deconditioning. 15. Gait dysfunction. 16. Questionable delirium versus encephalopathy versus transient confusional and disorientation state. 17. History of hyperuricemia and gout. 18. History of poor compliance, noncompliance. 19. Tachycardia. 20. High-grade fever. 21. Transient hypotension. 22. Dilated cardiomyopathy with left ventricular ejection fraction of 35%. 23. Severe mitral and tricuspid regurgitation. 24. Severe peripheral vascular disease of the lower extremity. 1. Sepsis, secondary to left foot diabetic foot ulceration secondary to Proteus mirabilis, Pseudomonas aeruginosa, beta hemolytic group B strep. 2. High-grade fever. 3. Tachycardia. 4. Episodic hypotension. 5. Leukocytosis with granulocytosis. 6. Acute kidney injury with underlying chronic kidney disease stage 4. 7. Uncontrolled non-insulin requiring diabetes mellitus with hyperglycemia and elevated hemoglobin A1c and elevated fructosamine of 329. 8. Episodic disorientation and confusion, possible questionable delirium versus toxic metabolic encephalopathy. 9. Proteinuria, microscopic hematuria, bacteriuria. 10. Monoclonal gammopathy, of unknown significance. 11. Metabolic acidosis. 12. Hypertensive, diabetic, chronic kidney disease stage 3. 13. Severe mitral, tricuspid regurgitation with systolic congestive heart failure and cardiomyopathy with ejection fraction of 35%. 14. Left foot grade 2 amputation, second metatarsal amputation, and third and fourth toe toenail removal and wound debridement. 15. Cardiomyopathy. 16. Severe peripheral vascular disease of the lower extremity. 17. Persistent refractory leukocytosis. 18. Chronic microvascular ischemic disease of the brain and cerebral cortical atrophy of the brain. 19. Gait dysfunction. 20. Deconditioning. 21. Transient confusion state secondary to transient cerebral hypoperfusion and hyperglycemic fluctuations. 1. Status post left foot great toe amputation and second metatarsal amputation and third and fourth digit toenail removal and left foot wound debridement, postop day #1. 2. Chronic nonhealing left foot diabetic foot ulceration and possible gangrene. 3. Fever. 4. Tachycardia. 5. Hypotension. 6. Persistent refractory leukocytosis with granulocytosis. 7. Normocytic anemia, status post packed red blood cell transfusion x3. 8. Uncontrolled diabetes mellitus with hyperglycemia and elevated hemoglobin A1c of 8.6. 9. Hyper fructosemia. 10. Lactic acidosis. 11. Hyperuricemia. 12. Possible iron-deficiency. 13. Elevated C-reactive protein of greater than 15. 14. Hypertriglyceridemia. 15. Proteinuria. 16. Microscopic hematuria. 17. Bacteriuria. 18. Elevated total kappa lambda ratio. 19. Pseudomonas aeruginosa and beta hemolytic strep group B left foot diabetic foot ulceration. 20. Status post packed red blood cell transfusion x3. 21. Left foot cellulitis. 22. Chronic microvascular ischemic disease of the brain and cerebral cortical atrophy of the brain. 23. Sepsis with Pseudomonas aeruginosa and group B Streptococcus beta hemolytic Streptococcus left foot diabetic foot ulcerations and cellulitis. 24. Kidney injury with underlying chronic kidney disease. 25. Hypertensive diabetic chronic kidney disease. 26. Stage III chronic kidney disease secondary to hypertension and vasculopathy. 27. Anemia. 28. Monoclonal gammopathy of unknown significance. 29. Transient and episodic confusion and disorientation, probably secondary to transient cerebral hypoperfusion and uncontrolled diabetes mellitus. 30. Sepsis. 1. Group B Streptococcus and Pseudomonas aeruginosa, left foot diabetic foot ulceration and gangrene and cellulitis. 2. History of chronic osteomyelitis of the left foot. 3. High-grade fever. 4. Questionable sepsis versus systemic inflammatory response syndrome. 5. Tachycardia. 6 Hypotension. 7. Questionable and possible encephalopathy versus toxic metabolic encephalopathy with episodic confusion and disorientation. 8. Type 2 diabetes mellitus. 9. Anemia of chronic disease. 10. Status post packed red blood cell transfusion x2. 11. Gait dysfunction. 12. Deconditioning. 13. Status post left foot big toe amputation,2nd metatarsal amputation, wound debridement and 3rd and 4th toe nail removal. 14. Persistent refractory leukocytosis with granulocytosis 15. Normocytic anemia. 16. Uncontrolled type 2 diabetes mellitus with hyperglycemia. 17. Microvascular ischemic disease of the brain. 18. Cerebral cortical atrophy of the brain. 19. Gait dysfunction with nonweightbearing status of the left foot. 20. Severe peripheral vascular disease of the lower extremity with severe bilateral tibial and distal lower extremities severe occlusive disease with ankle-brachial index is of less than 1. 21. History of hypertension. 22. History of gout and hyperuricemia. 23. History of gouty arthritis. 24. Dilated cardiomyopathy with ejection fraction of 35% with severe mitral and tricuspid regurgitation. 25. Acute kidney injury with underlying chronic kidney disease stage III. 26. Proteinuria and microscopic hematuria. 1. High-grade fever and new fever. 2. Tachycardia. 3. Hypotension. 4. Questionable sepsis versus systemic inflammatory response syndrome with high-grade fever, tachycardia, hypotension. 5. Persistent refractory leukocytosis with granulocytosis. 6. Normocytic anemia. 7. Status post packed red blood cell transfusion x2. 8. Uncontrolled type 2 noninsulin-requiring diabetes mellitus with hyperglycemia. 9. Left foot Pseudomonas aeruginosa, group B Streptococcus with beta-hemolytic left foot, and left foot diabetic ulceration and possible diabetic left foot gangrene. 10. Proteinuria. 11. Microscopic hematuria. 12. Bacteriuria. 13. Left foot group B streptococcal beta-hemolytic and Pseudomonas aeruginosa left foot diabetic foot ulceration. 14. Episodic disorientation and confusion, etiology undetermined. 15. Questionable toxic metabolic encephalopathy. 16. Hyperglycemia secondary to uncontrolled diabetes mellitus. 17. Status post packed red blood cell transfusion x2. 18. Persistent refractory leukocytosis. 19. Left foot diabetic ulceration and diabetic cellulitis. 20. Dilated cardiomyopathy. 21. History of poor compliance and noncompliance. 22. History of hyperuricemia and gout. 23. 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 24. Gait dysfunction. 25. Deconditioning. 1. Left foot diabetic ulceration and nonhealing diabetic ulceration with possible diabetic gangrene of the left foot and great toe and the left foot toes with group B Streptococcus and Pseudomonas aeruginosa, cellulitis and diabetic foot gangrene of the left foot. 2. Uncontrolled diabetes mellitus with elevated hemoglobin A1c. 3. Fever. 4. Questionable sepsis. 5. Tachycardia. 6. Possible sepsis versus systemic inflammatory response syndrome. 7. Fever. 8. Transient hypotension. 9. Dilated cardiomyopathy. 10. Persistent refractory leukocytosis. 11. Normocytic anemia status post packed red blood cell transfusion. 12. Granulocytosis. 13. Acute kidney injury with underlying chronic kidney disease, stage IV. 14. Uncontrolled diabetes mellitus with hyperglycemia and an elevated hemoglobin A1c and hyperfructosemia. 15. History of poor compliance and noncompliance. 16. History of hyperuricemia and gout. 17. Severe peripheral vascular disease. 18. History of severe peripheral vascular disease of the lower extremity. 19. Severe mitral and tricuspid regurgitation. 20. Cardiomyopathy with ejection fraction of around 35%. 21. History of poor compliance. 22. History of chronic osteomyelitis of the left foot and partial amputation of the left foot second toe. 1. Fever. 2. Sinus tachycardia. 3. Pseudomonas nose group. Group B streptococcus group B beta hemolytic left foot diabetic foot ulcerations and cellulitis and gangrene. 4. Severe peripheral vascular disease. 5. Persistent refractory leukocytosis with granulocytosis. 6. Anemia with decreasing hemoglobin/hematocrit. 7. Elevated erythrocyte sedimentation rate of 122. 8. Chronic kidney disease, stage 3. 9. Hyperglycemia secondary to uncontrolled diabetes mellitus with hemoglobin A1c of 8.6 and hyper fructose anemia. 10. Transaminitis. 11. Iron-deficiency anemia. 12. Hypertriglyceridemia. 13. Elevated C-reactive protein of greater than 15. 14. Lactic acidosis. 15. Status post packed red blood cell transfusions x2. 16. Left foot erosive changes. 17. Severe peripheral vascular disease of bilateral popliteal trifurcation and tibial disease with normal resting ankle-brachial indices. 18. Chronic osteomyelitis of the left foot with bony destruction and sclerosis around the first metatarsophalangeal joint and partial amputation of the second proximal phalanx. 19. Severe degenerative joint disease of the left midfoot. 20. Left axis deviation. 21. Acute kidney injury with underlying chronic kidney disease. 22. Metabolic acidosis. 23. Hypertensive diabetic chronic kidney disease stage 3 without proteinuria. 24. Monoclonal gammopathy of unknown significance. 25. Severe mitral, tricuspid regurgitation with cardiomyopathy, left ventricular ejection fraction of 35% to 40%. 26. Left foot diabetic foot ulceration and gangrene. 27. Congestive heart failure with reduced ejection fraction. 28. Nonhealing left foot diabetic ulceration. 29. Sepsis with left foot cellulitis and diabetic foot ulceration with Pseudomonas secondary to Pseudomonas aeruginosa and Streptococcus group B beta hemolytic Streptococcus. 30. Questionable and possible delirium versus encephalopathy. 31. Gait dysfunction. 32. Deconditioning. 33. Constipation. 34. Hypovitaminosis D. 35. Prostatic hypertrophy. 36. Hyperlipidemia. 37. Hyperuricemia. 38. Hyperglycemia. 39. Uncontrolled diabetes mellitus with hyperglycemia. 40. Gait dysfunction. 41. History of poor compliance and noncompliance. 1. Left foot Pseudomonas aeruginosa and group B beta hemolytic strep, left foot diabetic foot ulceration and cellulitis. 2. Sepsis secondary to Pseudomonas aeruginosa and group B beta hemolytic strep, left diabetic foot ulceration and cellulitis. 3. Hypertension. 4. Tachycardia. 5. Anemia. 6. Status post packed red blood cell transfusion one unit. 7. Leukocytosis with granulocytosis. 8. Elevated erythrocyte sedimentation rate of 122. 9. Iron-deficiency. 10. Acute kidney injury with underlying chronic kidney disease, stage IV. 11. Uncontrolled diabetes mellitus with hyperglycemia and elevated hemoglobin A1c of 8.6 and elevated fructose, a mean of 329. 12. Transient lactic acidosis. 13. Transaminitis. 14. Hypertriglyceridemia. 15. Elevated C-reactive protein of greater than 15. 16. Gait dysfunction. 17. Deconditioning. 18. Metabolic acidosis. 19. 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 20. Severe mitral, tricuspid regurgitation and systolic congestive heart failure. 21. Left foot cellulitis and left foot diabetic ulceration. 22. Left diabetic foot ulceration and possible gangrene or pre-gangrenous condition of the left foot toes. 23. Left foot second digit amputation. 24. Peripheral vascular disease. 25. Left foot second toe amputation with cyanosis and mummification of the toes and forefoot of the left foot. 26. Severe tibial disease of the lower extremity. 27. Peripheral vascular disease. 28. Anemia of chronic disease. 29. Bilateral popliteal trifurcation and tibial disease. 30. Left anterior hemiblock. 1. Left foot Pseudomonas aeruginosa and group B Streptococcus beta hemolytic left foot cellulitis and diabetic foot ulcer. 2. Severe peripheral vascular disease of the lower extremity. 3. Normocytic anemia with decreasing hemoglobin. 4. Leukocytosis with granulocytosis. 5. Uncontrolled diabetes mellitus with hyperglycemia. 6. Acute kidney injury with underlying chronic kidney disease stage III/IV. 7. Transaminitis. 8. Probably anemia of chronic kidney disease. 9. Acute kidney injury with underlying chronic kidney disease. 10. Metabolic acidosis. 11. Hypertensive diabetic chronic kidney disease. 12. [id number] mitral regurgitation and glixsnii-gl-wwbblp tricuspid regurgitation. 13. Dilated cardiomyopathy with ejection fraction of 35%. 14. Sepsis. 15. Hypertension. 16. Gait dysfunction. 17. Deconditioning. 18. Bilateral lower extremity peripheral vascular disease. 19. History of poor compliance and noncompliance. 20. History of hyperuricemia and gout. 1. Left foot cellulitis versus gangrene versus pregangrenous state. 2. Sepsis. 3. Tachycardia. 4. Transient episodic hypotension. 5. Leukocytosis with granulocytosis 6. Elevated erythrocyte sedimentation rate of 122. 7. Normocytic anemia. 8. Chronic kidney disease stage 4 with acute kidney injury. 9. Uncontrolled noninsulin-requiring diabetes mellitus with hyperglycemia and hemoglobin A1c of 8.6. 10. Possible iron-deficiency. 11. Hypertriglyceridemia. 12. Elevated C-reactive protein of greater than 15. 13. Transient lactic acidosis. 14. Transaminitis. 15. Deconditioning. 16. Gait dysfunction. 17. Anemia with decreasing hemoglobin and hematocrit. 18. Metabolic acidosis. 19. Diabetic hypertensive chronic kidney disease. 20. Chronic kidney disease stage 3 without proteinuria. 21. Severe mitral and tricuspid regurgitation. 22. Systolic congestive heart failure. 23. Dilated ischemic cardiomyopathy, etiology undetermined. 1. Left foot cellulitis with diabetic foot disease and possible abscess versus possible osteomyelitis. 2. History of left foot second toe amputation. 3. Hypertension. 4. Tachycardia. 5. Fever. 6. Poor compliance and noncompliance. 7. Leukocytosis with granulocytosis. 8. Normocytic anemia. 9. Elevated erythrocyte sedimentation rate of 122. 10. Chronic kidney disease, stage IV with acute kidney injury. 11. Transient lactic acidosis. 12. History of hyperuricemia. 13. Hypertriglyceridemia. 14. Aortic calcification. 15. Bilateral lower extremity popliteal trifurcation and tibial peripheral vascular disease. 16. Left foot first metatarsophalangeal joint bony destruction and sclerosis, chronic osteomyelitis. 17. 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 18. 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 19. Sinus tachycardia with left anterior hemiblock. 20. Deconditioning. 21. History of poor compliance. 22. Chronic dilated ischemic cardiomyopathy with ejection fraction of . 23. History of hypertension. 24. History of heart failure with reduced ejection fraction of 35%. 25. Pulmonary hypertension with right ventricular systolic pressure of 40 mmHg. 26. Left ventricular global hypokinesis and moderately impaired left ventricular systolic function. 27. Mild aortic regurgitation. 28. Moderate to severe mitral regurgitation. 29. Moderate tricuspid regurgitation. 30. History of constipation. 31. Hypovitaminosis D. 32. History of iron-deficiency anemia. 33. Prostatic hypertrophy. 34. Insulin-requiring diabetes mellitus. 35. Hyperlipidemia. 36. History of peripheral vascular disease. 37. Hyperuricemia. 1. Left foot diabetic foot ulceration versus left foot abscess versus left foot toe osteomyelitis. 2. Tachycardia. 3. Leukocytosis with granulocytosis. 4. Questionable systemic inflammatory response syndrome. 5. Uncontrolled diabetes mellitus with hyperglycemia. 6. Chronic kidney disease stage IV. 7. Mild transaminitis. 8. History of hypertension. 9. Hyperlipidemia. 10. History of prostatic hypertrophy. 11. History of iron-deficiency anemia. 12. History of hypovitaminosis D. 13. History of dilated cardiomyopathy. 14. History of pulmonary hypertension. 15. History of moderate tricuspid regurgitation and mitral regurgitation. 16. Hyperuricemia. PLAN: At this time, the patient is awaiting for vascular surgery intervention regarding definitive treatment of the left lower extremity whether transmetatarsal amputation versus left below-knee amputation. The patient will be continued on all the therapeutic interventions as per the MAR of today including the patient will be continued on IV antibiotics as per Infectious Disease. The patient will be continued on wound care as per Podiatry and as per the Vascular Surgery. The patient will be continued on pharmacological, non-pharmacological, GI, DVT prophylaxis. The patient will be continued on diabetic renal diet. The patient has been ordered out of bed to chair, physical therapy, occupational therapy with nonweightbearing of the left lower extremity. Gait training has been ordered.. At present, the patient will be continued on all the therapeutic intervention as per the MAR of today, which is reviewed. As mentioned above, the patient's definite treatment recommendation by Vascular Surgery still pending. The patient's family including the daughter is aware of the patient's condition, diagnosis, treatment options which have been all discussed and explained to the patient's daughter and the son at length during this hospitalization on multiple occasions. Dictated and electronically signed, not read. Niranjan Ling MD [facility]
--- NOTE | 2018-12-08 16:03 | CP.PCM.PN ---
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 stable renal fxn Hypertension control with meds as ordered. Maintain hemodynamics stable. Avoid hypotension. Patient not on ACEI/ARB due to EMIL and hyperkalemia tendency. consider to add once stable. Monitor Input/Output, daily weights and renal function with basic metabolic panel continue with iron and MVI. PRBC as needed. dose of aransep 40 mcg weekly held as Hb 11.2. K/L ratio remains high at 3.6. pending hematology eval vit d can be changed to once a month as last level 41 continue with flomax can give IVF as needed plan for TMA as per podiatry/surgery Dose meds/antibiotics for reduced GFR. Avoid fleets enema/magnesium based laxatives. Avoid nephrotoxins/NSAIDs/ iodinated contrast (unless needed emergently) Glycemic control Further work up/management as per primary team Thanks for allowing me to participate in care of your patient. Will follow patient with you. Please call if any Qs. had d/w team and son Dr Anjum Padron Office: [phone] Chief Complaint; Foot ulcer Reason for consult: Acute Kidney Injury HPI: Pt is a 73 M with hx of diabetes Mellitus (30 years), hypertension (years) PVD, Gout CKD 3 with baseline cr 1.8-1.9 presented with complaints of foot ulcer, being managed for cellulitis. seen for EMIL and pt also with PVD Denies OTC/herbal meds or NSAIDs. No recent iodinated contrast exposure. Noted obvious episodes of low BP. pt still not aware about kidney disease in past ROS: noted overnight events Cardiovascular: No chest pain. Pulmonary: No shortness of breath Gastrointestinal: denies abdominal pain No nausea. No vomiting. Genitourinary: No pain while urinating. Denies blood in urine. All other negative except as mentioned in HPI. per son, pt refused to go for outpt follow ups Physical Examination: General Appearance: Comfortable, in no acute respiratory distress, co-operative . Vitals reviewed and noted as below Head; Atraumatic, normocephalic ENT: no ulcers no thrush. Tongue is midline. Oropharynx: no rash or ulcers. EYES: Pupils are equal, round and reactive to light accommodation. Eye muscles and extra-ocular movement intact. Sclera is anicteric. Neck; supple no lymphadenopathy, no thyromegaly or bruit Lungs: Normal respiratory rate/effort. Breath sounds bilateral improved Heart: Incr rate. s1s2 normal. No rub or gallop. Extremities: no edema. No varicose veins. left foot in dressing Neurological: Patient is alert, awake and oriented to person, place and time. No focal deficit. Strength bilateral appropriate and equal Skin: Warm and dry. Normal turgor. No rash. Palpitation: Normal elasticity for age Abdomen: Abdomen is soft. Bowel sounds +. There is no abdominal tenderness, no guarding/rigidity no organomegaly Psych: lack insight and has normal affect/mood MSK: no joint tenderness or swelling. Digits and nails normal, no deformity : kidney or bladder not palpable. Labs/imaging reviewed. Past medical history, past surgical history, family history, social history, allergy reviewed and noted as below Family hx: no hx of CKD. Rest non-contributory Phos 3.5 TSAT 13% Vit D 41 PTH 49 LDL 103 kappa/lambda 3.4 uric acid 7.5 renal cyst left side Objective - Vital Signs/Intake and Output Vital Signs (last 24 hours): Temp Pulse Resp BP Pulse Ox 98.6 F 113 H 18 97/67 L 99 12/08/18 14:00 12/08/18 14:00 12/08/18 14:00 12/08/18 14:00 12/08/18 14:00 Intake and Output: 12/08/18 12/08/18 06:59 18:59 Intake Total 480 600 Output Total 1000 Balance -520 600 - Medications Medications: Current Medications Acetaminophen (Tylenol 325mg Tab) 650 mg PO Q6H PRN PRN Reason: Pain, Mild (1-3) Last Admin: 12/08/18 09:31 Dose: 650 mg Acetaminophen (Tylenol 325mg Tab) 650 mg PO Q6 PRN PRN Reason: Fever >100.4 F Dextrose (Dextrose 50% Inj) 0 ml IV STAT PRN; Protocol PRN Reason: Hypoglycemia Protocol Docusate Sodium (Colace) 100 mg PO TID ON LICENSE OF [facility] Last Admin: 12/08/18 14:47 Dose: 100 mg Famotidine (Pepcid) 20 mg PO 1000,2200 ON LICENSE OF [facility] Stop: 12/11/18 10:01 Ferrous Gluconate (Fergon) 324 mg PO TID ON LICENSE OF [facility] Last Admin: 12/08/18 14:48 Dose: 324 mg Heparin Sodium (Porcine) (Heparin) 5,000 units SC Q8 ON LICENSE OF [facility]; Protocol Last Admin: 12/08/18 14:46 Dose: 5,000 units Dextrose (Dextrose 5% In Water 1000 Ml) 1,000 mls @ 0 mls/hr IV .Q0M PRN; Protocol PRN Reason: Hypoglycemia Protocol Meropenem/Sodium Chloride (Merrem Iv 500 Mg/Ns 50 Ml) 500 mg in 50 mls @ 100 mls/hr IVPB Q12 ON LICENSE OF [facility]; Protocol Last Admin: 12/08/18 09:35 Dose: 100 mls/hr Insulin Human Lispro (Humalog Med) 0 units SC AC ON LICENSE OF [facility]; Protocol Last Admin: 12/08/18 12:10 Dose: 3 units Insulin Human NPH (Humulin N) 15 units SC [facility] Midodrine (Proamatine) 5 mg PO TID ON LICENSE OF [facility] Last Admin: 12/08/18 14:48 Dose: 5 mg Nystatin (Nystop Topical Powder) 0 gm TOP BID ON LICENSE OF [facility] Ondansetron HCl (Zofran Inj) 4 mg IVP Q4H PRN PRN Reason: Nausea/Vomiting Pantoprazole Sodium (Protonix Ec Tab) 40 mg PO 0600 ON LICENSE OF [facility] Last Admin: 12/08/18 05:54 Dose: 40 mg Polyethylene Glycol (Miralax) 17 gm PO BID ON LICENSE OF [facility] Last Admin: 12/08/18 12:10 Dose: 17 gm Sodium Hypochlorite (Dakins Solution 0.25%) 20 ml TOP DAILY ON LICENSE OF [facility] Last Admin: 12/08/18 09:12 Dose: 1 applic Tamsulosin HCl (Flomax) 0.4 mg PO DAILY [facility] Last Admin: 12/08/18 09:33 Dose: 0.4 mg Vitamin B Complex/Vit C/Folic Acid (Nephro-Sumit) 1 tab PO 0800 [facility] Last Admin: 12/08/18 09:45 Dose: 1 tab - Labs Labs: 12/08/18 07:10 12/08/18 07:10 PT 14.7 SECONDS (9.4-12.5) H 11/25/18 13:05 INR 1.30 11/25/18 13:05 APTT 26.3 Seconds (26.9-38.3) L 11/25/18 13:05
[2018-12-08] MEDS: Nystatin 100,000 Units/gm Topical Pow(15 gm) TOP SCH (18:14)
[2018-12-08] MEDS ORDERED: Insulin Lispro 1 UNITS/0.01 ML SC STA (21:25)
[2018-12-09] MEDS: Pantoprazole 40 mg EC Tab PO SCH (05:37)
[2018-12-09] MEDS ORDERED: Dextrose 50% SYRINGE Inj (50 ml) IV PRN (07:39)
[2018-12-09 07:40] LABS: HEMOGLOBIN 11.1 g/dL (14.0-18.0); MEAN CELL VOLUME 93.8 fl (80.0-105.0); MEAN CORPUSCULAR HEMOGLOBIN 31.1 pg (25.0-35.0); MEAN CORPUSCULAR HGB CONC 33.1 g/dl (31.0-37.0); MEAN PLATELET VOLUME 10.2 fl (7.0-11.0); RBC 3.57 10^6/uL (3.5-6.1); RED CELL DISTRIBUTION WIDTH 16.3 % (11.5-14.5)
[2018-12-09 07:56] LABS: ALBUMIN 3.8 g/dL (3.0-4.8); BILIRUBIN,DIRECT 0.2 mg/dL (0.0-0.4); CALCIUM 9.4 mg/dL (8.4-10.5)
[2018-12-09] MEDS: Insulin Human NPH 1 UNITS/0.01 ML SC SCH ×3 (08:15→17:03)
[2018-12-09] MEDS: Multivitamin Vitamin B Complex (Nephro-Vite) Tab PO SCH (08:17)
[2018-12-09] MEDS: Insulin Lispro (humaLOG) MEDIUM Coverage SC SCH ×3 (08:17→17:00)
--- NOTE | 2018-12-09 08:59 | CP.PCM.PN ---
<Phi Mcnair - Last Filed: 12/09/18 08:54> Subjective - Date & Time of Evaluation Date of Evaluation: 12/09/18 Time of Evaluation: 08:54 - Subjective Subjective: SURGERY NOTE FOR DR. SOSA 73M seen and examined at bedside. Patient resting bedside. Left foot dressing changed, draining purulent material. Admits to pain. Objective - Vital Signs/Intake and Output Vital Signs (last 24 hours): Temp Pulse Resp BP Pulse Ox 98.1 F 93 H 18 115/72 100 12/09/18 06:00 12/09/18 06:00 12/09/18 06:00 12/09/18 06:00 12/09/18 06:00 - Medications Medications: Current Medications Acetaminophen (Tylenol 325mg Tab) 650 mg PO Q6H PRN PRN Reason: Pain, Mild (1-3) Last Admin: 12/08/18 09:31 Dose: 650 mg Acetaminophen (Tylenol 325mg Tab) 650 mg PO Q6 PRN PRN Reason: Fever >100.4 F Dextrose (Dextrose 50% Inj) 0 ml IV STAT PRN; Protocol PRN Reason: Hypoglycemia Protocol Dextrose (Dextrose 50% Inj) 0 ml IV STAT PRN; Protocol PRN Reason: Hypoglycemia Protocol Docusate Sodium (Colace) 100 mg PO TID COUNTS INCLUDE 234 BEDS AT THE [facility] Last Admin: 12/08/18 18:13 Dose: 100 mg Famotidine (Pepcid) 20 mg PO 1000,2200 COUNTS INCLUDE 234 BEDS AT THE [facility] Stop: 12/11/18 10:01 Last Admin: 12/08/18 22:03 Dose: 20 mg Ferrous Gluconate (Fergon) 324 mg PO TID COUNTS INCLUDE 234 BEDS AT THE [facility] Last Admin: 12/08/18 18:13 Dose: 324 mg Heparin Sodium (Porcine) (Heparin) 5,000 units SC Q8 COUNTS INCLUDE 234 BEDS AT THE [facility]; Protocol Last Admin: 12/09/18 05:37 Dose: 5,000 units Dextrose (Dextrose 5% In Water 1000 Ml) 1,000 mls @ 0 mls/hr IV .Q0M PRN; Protocol PRN Reason: Hypoglycemia Protocol Meropenem/Sodium Chloride (Merrem Iv 500 Mg/Ns 50 Ml) 500 mg in 50 mls @ 100 mls/hr IVPB Q12 COUNTS INCLUDE 234 BEDS AT THE [facility]; Protocol Last Admin: 12/08/18 22:04 Dose: 100 mls/hr Dextrose (Dextrose 5% In Water 1000 Ml) 1,000 mls @ 0 mls/hr IV .Q0M PRN; Protocol PRN Reason: Hypoglycemia Protocol Insulin Human Lispro (Humalog Med) 0 units SC AC COUNTS INCLUDE 234 BEDS AT THE [facility]; Protocol Last Admin: 12/09/18 08:17 Dose: 1 units Insulin Human NPH (Humulin N) 17 units SC ACBD COUNTS INCLUDE 234 BEDS AT THE [facility] Last Admin: 12/09/18 08:18 Dose: 17 unit Midodrine (Proamatine) 5 mg PO TID COUNTS INCLUDE 234 BEDS AT THE [facility] Last Admin: 12/08/18 18:13 Dose: 5 mg Nystatin (Nystop Topical Powder) 0 gm TOP BID COUNTS INCLUDE 234 BEDS AT THE [facility] Last Admin: 12/08/18 18:14 Dose: 1 appl Ondansetron HCl (Zofran Inj) 4 mg IVP Q4H PRN PRN Reason: Nausea/Vomiting Pantoprazole Sodium (Protonix Ec Tab) 40 mg PO 0600 COUNTS INCLUDE 234 BEDS AT THE [facility] Last Admin: 12/09/18 05:37 Dose: 40 mg Polyethylene Glycol (Miralax) 17 gm PO BID COUNTS INCLUDE 234 BEDS AT THE [facility] Last Admin: 12/08/18 18:13 Dose: Not Given Sodium Hypochlorite (Dakins Solution 0.25%) 20 ml TOP DAILY COUNTS INCLUDE 234 BEDS AT THE [facility] Last Admin: 12/08/18 09:12 Dose: 1 applic Tamsulosin HCl (Flomax) 0.4 mg PO DAILY COUNTS INCLUDE 234 BEDS AT THE [facility] Last Admin: 12/08/18 09:33 Dose: 0.4 mg Vitamin B Complex/Vit C/Folic Acid (Nephro-Sumit) 1 tab PO 0800 COUNTS INCLUDE 234 BEDS AT THE [facility] Last Admin: 12/09/18 08:17 Dose: 1 tab - Labs Labs: 12/09/18 07:30 12/09/18 07:30 PT 14.7 SECONDS (9.4-12.5) H 11/25/18 13:05 INR 1.30 11/25/18 13:05 APTT 26.3 Seconds (26.9-38.3) L 11/25/18 13:05 - Constitutional Appears: No Acute Distress - Respiratory Exam Respiratory Exam: Clear to Ausculation Bilateral, NORMAL BREATHING PATTERN - Cardiovascular Exam Cardiovascular Exam: REGULAR RHYTHM, +S1, +S2 - GI/Abdominal Exam GI & Abdominal Exam: Soft. absent: Distended, Firm, Guarding, Rigid, Tenderness, Rebound - Extremities Exam Additional comments: left foot, dry gangrene purulent material pain on palpation - Neurological Exam Neurological Exam: Alert, Awake - Skin Skin Exam: Dry, Intact, Normal Color, Warm Assessment and Plan - Assessment and Plan (Free Text) Assessment: 73 y/o M POD#14 s/p L great toe and 2nd metatarsal amputation 2/2 chronic L foot wound and osteomyelitis Plan: - dressing change with Dakins - plan for OR thursday for further amputation Further recs discuss with Dr. Ian Mcnair, PGY3 <Kain Sosa - Last Filed: 12/09/18 19:25> Objective - Vital Signs/Intake and Output Vital Signs (last 24 hours): Temp Pulse Resp BP Pulse Ox 98.4 F 94 H 20 97/62 L 100 12/09/18 13:44 12/09/18 13:44 12/09/18 13:44 12/09/18 13:44 12/09/18 13:44 Intake and Output: 12/09/18 12/10/18 18:59 06:59 Intake Total 480 Output Total 300 Balance 180 - Medications Medications: Current Medications Acetaminophen (Tylenol 325mg Tab) 650 mg PO Q6H PRN PRN Reason: Pain, Mild (1-3) Last Admin: 12/08/18 09:31 Dose: 650 mg Acetaminophen (Tylenol 325mg Tab) 650 mg PO Q6 PRN PRN Reason: Fever >100.4 F Dextrose (Dextrose 50% Inj) 0 ml IV STAT PRN; Protocol PRN Reason: Hypoglycemia Protocol Dextrose (Dextrose 50% Inj) 0 ml IV STAT PRN; Protocol PRN Reason: Hypoglycemia Protocol Docusate Sodium (Colace) 100 mg PO TID COUNTS INCLUDE 234 BEDS AT THE [facility] Last Admin: 12/09/18 18:14 Dose: 100 mg Famotidine (Pepcid) 20 mg PO 1000,2200 COUNTS INCLUDE 234 BEDS AT THE [facility] Stop: 12/11/18 10:01 Last Admin: 12/09/18 10:50 Dose: 20 mg Ferrous Gluconate (Fergon) 324 mg PO TID COUNTS INCLUDE 234 BEDS AT THE [facility] Last Admin: 12/09/18 18:14 Dose: 324 mg Heparin Sodium (Porcine) (Heparin) 5,000 units SC Q8 COUNTS INCLUDE 234 BEDS AT THE [facility]; Protocol Last Admin: 12/09/18 15:31 Dose: 5,000 units Dextrose (Dextrose 5% In Water 1000 Ml) 1,000 mls @ 0 mls/hr IV .Q0M PRN; Protocol PRN Reason: Hypoglycemia Protocol Meropenem/Sodium Chloride (Merrem Iv 500 Mg/Ns 50 Ml) 500 mg in 50 mls @ 100 mls/hr IVPB Q12 COUNTS INCLUDE 234 BEDS AT THE [facility]; Protocol Last Admin: 12/09/18 10:51 Dose: 100 mls/hr Dextrose (Dextrose 5% In Water 1000 Ml) 1,000 mls @ 0 mls/hr IV .Q0M PRN; Protocol PRN Reason: Hypoglycemia Protocol Insulin Human Lispro (Humalog Med) 0 units SC AC [facility]; Protocol Last Admin: 12/09/18 17:00 Dose: 1 units Insulin Human NPH (Humulin N) 17 units SC ACBD COUNTS INCLUDE 234 BEDS AT THE [facility] Last Admin: 12/09/18 17:03 Dose: 17 unit Midodrine (Proamatine) 5 mg PO TID COUNTS INCLUDE 234 BEDS AT THE [facility] Last Admin: 12/09/18 18:14 Dose: 5 mg Nystatin (Nystop Topical Powder) 0 gm TOP BID COUNTS INCLUDE 234 BEDS AT THE [facility] Last Admin: 12/09/18 18:17 Dose: 1 appl Ondansetron HCl (Zofran Inj) 4 mg IVP Q4H PRN PRN Reason: Nausea/Vomiting Pantoprazole Sodium (Protonix Ec Tab) 40 mg PO 0600 COUNTS INCLUDE 234 BEDS AT THE [facility] Last Admin: 12/09/18 05:37 Dose: 40 mg Polyethylene Glycol (Miralax) 17 gm PO BID COUNTS INCLUDE 234 BEDS AT THE [facility] Last Admin: 12/09/18 18:16 Dose: Not Given Sodium Hypochlorite (Dakins Solution 0.25%) 20 ml TOP DAILY COUNTS INCLUDE 234 BEDS AT THE [facility] Last Admin: 12/09/18 10:47 Dose: 1 applic Tamsulosin HCl (Flomax) 0.4 mg PO DAILY COUNTS INCLUDE 234 BEDS AT THE [facility] Last Admin: 12/09/18 10:49 Dose: 0.4 mg Vitamin B Complex/Vit C/Folic Acid (Nephro-Sumit) 1 tab PO 0800 COUNTS INCLUDE 234 BEDS AT THE [facility] Last Admin: 12/09/18 08:17 Dose: 1 tab - Labs Labs: 12/09/18 07:30 12/09/18 07:30 PT 14.7 SECONDS (9.4-12.5) H 11/25/18 13:05 INR 1.30 11/25/18 13:05 APTT 26.3 Seconds (26.9-38.3) L 11/25/18 13:05 Assessment and Plan - Assessment and Plan (Free Text) Plan: Patient was seen, evaluated and examined by me at the bedside. I agree with assessment and plan as stated in the resident's note.
[2018-12-09] MEDS: Dakin's Topical 0.25%-Half Strength (480 ml) TOP SCH (10:47)
[2018-12-09] MEDS: POLYETHYLENE GLYCOL 3350 17 GM/Dose PACKET PO SCH ×2 (10:47→18:16)
[2018-12-09] MEDS: Nystatin 100,000 Units/gm Topical Pow(15 gm) TOP SCH ×2 (10:50→18:17)
[2018-12-09] MEDS: MEROPENEM 500 MG in NS 500 MG/50 ML BAG IVPB SCH ×2 (10:51→21:43)
--- NOTE | 2018-12-09 12:41 | CP.PCM.PN ---
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 stable renal fxn Hypertension control with meds as ordered. Maintain hemodynamics stable. Avoid hypotension. Patient not on ACEI/ARB due to EMIL and hyperkalemia tendency. consider to add once stable. Monitor Input/Output, daily weights and renal function with basic metabolic panel continue with iron and MVI. PRBC as needed. dose of aransep 40 mcg weekly held as Hb >10 his K/L ratio remains high at 3.6. pending hematology eval vit d can be changed to once a month as last level 41 continue with flomax can give IVF as needed plan for TMA as per podiatry/surgery Dose meds/antibiotics for reduced GFR. Avoid fleets enema/magnesium based laxatives. Avoid nephrotoxins/NSAIDs/ iodinated contrast (unless needed emergently) Glycemic control Further work up/management as per primary team Thanks for allowing me to participate in care of your patient. Will follow patient with you. Please call if any Qs. had d/w team and son Dr Anjum Padron Office: [phone] Chief Complaint; Foot ulcer Reason for consult: Acute Kidney Injury HPI: Pt is a 73 M with hx of diabetes Mellitus (30 years), hypertension (years) PVD, Gout CKD 3 with baseline cr 1.8-1.9 presented with complaints of foot ulcer, being managed for cellulitis. seen for EMIL and pt also with PVD Denies OTC/herbal meds or NSAIDs. No recent iodinated contrast exposure. Noted obvious episodes of low BP. pt still not aware about kidney disease in past ROS: noted overnight events Cardiovascular: No chest pain. Pulmonary: No shortness of breath Gastrointestinal: denies abdominal pain No nausea. No vomiting. Genitourinary: No pain while urinating. Denies blood in urine. All other negative except as mentioned in HPI. per son, pt refused to go for outpt follow ups Physical Examination: General Appearance: Comfortable, in no acute respiratory distress, co-operative . Vitals reviewed and noted as below Head; Atraumatic, normocephalic ENT: no ulcers no thrush. Tongue is midline. Oropharynx: no rash or ulcers. EYES: Pupils are equal, round and reactive to light accommodation. Eye muscles and extra-ocular movement intact. Sclera is anicteric. Neck; supple no lymphadenopathy, no thyromegaly or bruit Lungs: Normal respiratory rate/effort. Breath sounds bilateral improved Heart: Incr rate. s1s2 normal. No rub or gallop. Extremities: no edema. No varicose veins. left foot in dressing Neurological: Patient is alert, awake and oriented to person, place and time. No focal deficit. Strength bilateral appropriate and equal Skin: Warm and dry. Normal turgor. No rash. Palpitation: Normal elasticity for age Abdomen: Abdomen is soft. Bowel sounds +. There is no abdominal tenderness, no guarding/rigidity no organomegaly Psych: lack insight and has normal affect/mood MSK: no joint tenderness or swelling. Digits and nails normal, no deformity : kidney or bladder not palpable. Labs/imaging reviewed. Past medical history, past surgical history, family history, social history, allergy reviewed and noted as below Family hx: no hx of CKD. Rest non-contributory Phos 3.5 TSAT 13% Vit D 41 PTH 49 LDL 103 kappa/lambda 3.4 uric acid 7.5 renal cyst left side Objective - Vital Signs/Intake and Output Vital Signs (last 24 hours): Temp Pulse Resp BP Pulse Ox 98.1 F 93 H 18 115/72 100 12/09/18 06:00 12/09/18 06:00 12/09/18 06:00 12/09/18 06:00 12/09/18 06:00 - Medications Medications: Current Medications Acetaminophen (Tylenol 325mg Tab) 650 mg PO Q6H PRN PRN Reason: Pain, Mild (1-3) Last Admin: 12/08/18 09:31 Dose: 650 mg Acetaminophen (Tylenol 325mg Tab) 650 mg PO Q6 PRN PRN Reason: Fever >100.4 F Dextrose (Dextrose 50% Inj) 0 ml IV STAT PRN; Protocol PRN Reason: Hypoglycemia Protocol Dextrose (Dextrose 50% Inj) 0 ml IV STAT PRN; Protocol PRN Reason: Hypoglycemia Protocol Docusate Sodium (Colace) 100 mg PO TID [facility] Last Admin: 12/09/18 10:49 Dose: 100 mg Famotidine (Pepcid) 20 mg PO 1000,2200 [facility] Stop: 12/11/18 10:01 Last Admin: 12/09/18 10:50 Dose: 20 mg Ferrous Gluconate (Fergon) 324 mg PO TID [facility] Last Admin: 12/09/18 10:49 Dose: 324 mg Heparin Sodium (Porcine) (Heparin) 5,000 units SC Q8 [facility]; Protocol Last Admin: 12/09/18 05:37 Dose: 5,000 units Dextrose (Dextrose 5% In Water 1000 Ml) 1,000 mls @ 0 mls/hr IV .Q0M PRN; Protocol PRN Reason: Hypoglycemia Protocol Meropenem/Sodium Chloride (Merrem Iv 500 Mg/Ns 50 Ml) 500 mg in 50 mls @ 100 mls/hr IVPB Q12 [facility]; Protocol Last Admin: 12/09/18 10:51 Dose: 100 mls/hr Dextrose (Dextrose 5% In Water 1000 Ml) 1,000 mls @ 0 mls/hr IV .Q0M PRN; Protocol PRN Reason: Hypoglycemia Protocol Insulin Human Lispro (Humalog Med) 0 units SC AC [facility]; Protocol Last Admin: 12/09/18 12:00 Dose: 7 units Insulin Human NPH (Humulin N) 17 units SC ACBD [facility] Last Admin: 12/09/18 08:18 Dose: 17 unit Midodrine (Proamatine) 5 mg PO TID [facility] Last Admin: 12/09/18 10:49 Dose: 5 mg Nystatin (Nystop Topical Powder) 0 gm TOP BID [facility] Last Admin: 12/09/18 10:50 Dose: 1 appl Ondansetron HCl (Zofran Inj) 4 mg IVP Q4H PRN PRN Reason: Nausea/Vomiting Pantoprazole Sodium (Protonix Ec Tab) 40 mg PO 0600 [facility] Last Admin: 12/09/18 05:37 Dose: 40 mg Polyethylene Glycol (Miralax) 17 gm PO BID [facility] Last Admin: 12/09/18 10:47 Dose: 17 gm Sodium Hypochlorite (Dakins Solution 0.25%) 20 ml TOP DAILY [facility] Last Admin: 12/09/18 10:47 Dose: 1 applic Tamsulosin HCl (Flomax) 0.4 mg PO DAILY [facility] Last Admin: 12/09/18 10:49 Dose: 0.4 mg Vitamin B Complex/Vit C/Folic Acid (Nephro-Sumit) 1 tab PO 0800 [facility] Last Admin: 12/09/18 08:17 Dose: 1 tab - Labs Labs: 12/09/18 07:30 12/09/18 07:30 PT 14.7 SECONDS (9.4-12.5) H 11/25/18 13:05 INR 1.30 11/25/18 13:05 APTT 26.3 Seconds (26.9-38.3) L 11/25/18 13:05
--- NOTE | 2018-12-09 13:06 | CP.PCM.PN ---
<Sylwia Chambers - Last Filed: 12/09/18 13:19> Subjective - Date & Time of Evaluation Date of Evaluation: 12/09/18 Time of Evaluation: 07:45 - Subjective Subjective: Sylwia Chambers DO, PGY-2: Progress Note for Dr. Ling Patient seen and examined at bedside. Nurse reports patient's sugar was high after receiving steroids. Patient's rash on trunk has resolved. He reports his left foot pain is 4/10 in severity. Objective - Vital Signs/Intake and Output Vital Signs (last 24 hours): Temp Pulse Resp BP Pulse Ox 98.1 F 93 H 18 115/72 100 12/09/18 06:00 12/09/18 06:00 12/09/18 06:00 12/09/18 06:00 12/09/18 06:00 - Medications Medications: Current Medications Acetaminophen (Tylenol 325mg Tab) 650 mg PO Q6H PRN PRN Reason: Pain, Mild (1-3) Last Admin: 12/08/18 09:31 Dose: 650 mg Acetaminophen (Tylenol 325mg Tab) 650 mg PO Q6 PRN PRN Reason: Fever >100.4 F Dextrose (Dextrose 50% Inj) 0 ml IV STAT PRN; Protocol PRN Reason: Hypoglycemia Protocol Dextrose (Dextrose 50% Inj) 0 ml IV STAT PRN; Protocol PRN Reason: Hypoglycemia Protocol Docusate Sodium (Colace) 100 mg PO TID [facility] Last Admin: 12/09/18 10:49 Dose: 100 mg Famotidine (Pepcid) 20 mg PO 1000,2200 [facility] Stop: 12/11/18 10:01 Last Admin: 12/09/18 10:50 Dose: 20 mg Ferrous Gluconate (Fergon) 324 mg PO TID [facility] Last Admin: 12/09/18 10:49 Dose: 324 mg Heparin Sodium (Porcine) (Heparin) 5,000 units SC Q8 [facility]; Protocol Last Admin: 12/09/18 05:37 Dose: 5,000 units Dextrose (Dextrose 5% In Water 1000 Ml) 1,000 mls @ 0 mls/hr IV .Q0M PRN; Protocol PRN Reason: Hypoglycemia Protocol Meropenem/Sodium Chloride (Merrem Iv 500 Mg/Ns 50 Ml) 500 mg in 50 mls @ 100 mls/hr IVPB Q12 [facility]; Protocol Last Admin: 12/09/18 10:51 Dose: 100 mls/hr Dextrose (Dextrose 5% In Water 1000 Ml) 1,000 mls @ 0 mls/hr IV .Q0M PRN; Stephany col PRN Reason: Hypoglycemia Protocol Insulin Human Lispro (Humalog Med) 0 units SC AC [facility]; Protocol Last Admin: 12/09/18 12:00 Dose: 7 units Insulin Human NPH (Humulin N) 17 units SC ACBD [facility] Last Admin: 12/09/18 08:18 Dose: 17 unit Midodrine (Proamatine) 5 mg PO TID [facility] Last Admin: 12/09/18 10:49 Dose: 5 mg Nystatin (Nystop Topical Powder) 0 gm TOP BID [facility] Last Admin: 12/09/18 10:50 Dose: 1 appl Ondansetron HCl (Zofran Inj) 4 mg IVP Q4H PRN PRN Reason: Nausea/Vomiting Pantoprazole Sodium (Protonix Ec Tab) 40 mg PO 0600 [facility] Last Admin: 12/09/18 05:37 Dose: 40 mg Polyethylene Glycol (Miralax) 17 gm PO BID [facility] Last Admin: 12/09/18 10:47 Dose: 17 gm Sodium Hypochlorite (Dakins Solution 0.25%) 20 ml TOP DAILY [facility] Last Admin: 12/09/18 10:47 Dose: 1 applic Tamsulosin HCl (Flomax) 0.4 mg PO DAILY [facility] Last Admin: 12/09/18 10:49 Dose: 0.4 mg Vitamin B Complex/Vit C/Folic Acid (Nephro-Sumit) 1 tab PO 0800 [facility] Last Admin: 12/09/18 08:17 Dose: 1 tab - Labs Labs: 12/09/18 07:30 12/09/18 07:30 PT 14.7 SECONDS (9.4-12.5) H 11/25/18 13:05 INR 1.30 11/25/18 13:05 APTT 26.3 Seconds (26.9-38.3) L 11/25/18 13:05 - Constitutional Appears: Well, Non-toxic - Head Exam Head Exam: ATRAUMATIC, NORMOCEPHALIC - Eye Exam Eye Exam: EOMI, Normal appearance - ENT Exam ENT Exam: Mucous Membranes Moist, Normal Oropharynx - Neck Exam Neck Exam: Normal Inspection - Respiratory Exam Respiratory Exam: Clear to Ausculation Bilateral, NORMAL BREATHING PATTERN. absent: Accessory Muscle Use - Cardiovascular Exam Cardiovascular Exam: RRR, +S1, +S2 - GI/Abdominal Exam GI & Abdominal Exam: Soft, Normal Bowel Sounds - Extremities Exam Extremities Exam: Normal Inspection. absent: Calf Tenderness - Neurological Exam Neurological Exam: Alert, Awake, CN II-XII Intact - Psychiatric Exam Psychiatric exam: Normal Affect, Normal Mood - Skin Skin Exam: Dry, Intact, Normal Color, Warm Assessment and Plan - Assessment and Plan (Free Text) Assessment: 73 year old male with a past medical history of atrial fibrillation, gout, BPH, and DM II who presented [place] [facility] [place] chronic non-healing left foot ulcer. 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 - Surgery plans on taking patient to the OR on Thursday - Cilostazol 50 mg BID - Meropenem 500 q12h - Morphine 2 mg q4h PRN for severe pain - ID is following 2) Hypotension - Midodrine 2.5 mg TID 3) DM II - NPH 15 units ACBD - ISS Lispro (medium) - Hypoglycemia protocol instituted 4) EMIL on CKD - Gentle NS - Nephrology is following - Nephrovite 1 tab 0800 5) Gout - Allopurinol 100 mg daily 6) BPH - Flomax 0.4 mg 7) CAD - Aspirin 81 mg - Atorvastatin 20 mg DIN 8) Constipation - Docusate 100 mg TID 9) GI/DVT prophylaxis - Protonix 40 mg - Heparin 5,000 units q8 10) Persistent Leukocytosis - Flow cytometry reads as follows: no immunophenotypic evidence for abnormal myeloid maturation, an increase in blast or a lymphoproliferative disorder <Niranjan Ling U - Last Filed: 12/13/18 14:25> Objective - Vital Signs/Intake and Output Vital Signs (last 24 hours): Temp Pulse Resp BP Pulse Ox 98.3 F 94 H 17 93/57 L 99 12/12/18 14:00 12/12/18 14:00 12/12/18 14:00 12/12/18 14:00 12/12/18 14:00 - Medications Medications: Current Medications Acetaminophen (Tylenol 325mg Tab) 650 mg PO Q6 PRN PRN Reason: TEMP>=99.5F Last Admin: 12/12/18 22:42 Dose: 650 mg Acetaminophen (Tylenol 650 Mg Supp) 650 mg RC Q6H PRN PRN Reason: TEMP>=99.5F Dextrose (Dextrose 50% Inj) 0 ml IV STAT PRN; Protocol PRN Reason: Hypoglycemia Protocol Docusate Sodium (Colace) 100 mg PO TID [facility] Last Admin: 12/13/18 10:27 Dose: 100 mg Ferrous Gluconate (Fergon) 324 mg PO TID [facility] Last Admin: 12/13/18 10:28 Dose: 324 mg Heparin Sodium (Porcine) (Heparin) 5,000 units SC Q8 [facility]; Protocol Last Admin: 12/13/18 05:03 Dose: 5,000 units Dextrose (Dextrose 5% In Water 1000 Ml) 1,000 mls @ 0 mls/hr IV .Q0M PRN; Protocol PRN Reason: Hypoglycemia Protocol Insulin Human Lispro (Humalog Med) 0 units SC AC [facility]; Protocol Last Admin: 12/13/18 12:48 Dose: 5 units Insulin Human NPH (Humulin N) 17 units SC ACBD [facility] Last Admin: 12/13/18 10:28 Dose: 17 unit Metoclopramide HCl (Reglan) 10 mg IV ONCE PRN PRN Reason: Nausea/Vomiting Midodrine (Proamatine) 10 mg PO TID [facility] Last Admin: 12/13/18 10:28 Dose: 10 mg Nystatin (Nystop Topical Powder) 0 gm TOP BID [facility] Last Admin: 12/13/18 10:31 Dose: 1 appl Ondansetron HCl (Zofran Inj) 4 mg IVP Q4H PRN PRN Reason: Nausea/Vomiting Pantoprazole Sodium (Protonix Ec Tab) 40 mg PO 0600 [facility] Last Admin: 12/13/18 05:03 Dose: 40 mg Polyethylene Glycol (Miralax) 17 gm PO BID [facility] Last Admin: 12/13/18 10:28 Dose: 17 gm Tamsulosin HCl (Flomax) 0.4 mg PO DAILY [facility] Last Admin: 12/13/18 10:28 Dose: 0.4 mg Vitamin B Complex/Vit C/Folic Acid (Nephro-Sumit) 1 tab PO 0800 [facility] Last Admin: 12/13/18 10:28 Dose: 1 tab - Labs Labs: 12/13/18 07:00 12/13/18 07:00 PT 12.6 SECONDS (9.4-12.5) H 12/10/18 13:10 INR 1.12 12/10/18 13:10 APTT 30.3 Seconds (26.9-38.3) 12/10/18 13:10 Attending/Attestation - Attestation I have personally seen and examined this patient.: Yes I have fully participated in the care of the patient.: Yes I have reviewed all pertinent clinical information, including history, physical exam and plan: Yes Notes (Text): Please see/read my dictated notes.
--- NOTE | 2018-12-09 13:21 | PN ---
DATE: 12/09/2018 SUBJECTIVE: The patient is seen lying in the bed in room 575, bed 1. The patient is comfortable, in no distress. Overnight nurse's notes were reviewed. The patient was also seen last night in the patient's room with the patient's family. The patient was found to be out of bed to chair. PHYSICAL EXAMINATION: VITAL SIGNS: T-max 98.1 to 98.6, heart rate 93, blood pressure 115/72 respiration 18, O2 sat 100%. HEENT: Head examination normocephalic, atraumatic. HEENT examination shows pinkish pale conjunctivae. Anicteric sclerae. No oropharyngeal lesion. No neck rigidity. CHEST: Kyphosis. LUNGS: Examination shows no audible crackle, rales or wheezing. CARDIOVASCULAR: S1, S2, regular rhythm. Questionable soft systolic murmur left sternal border, right second intercostal space, left second intercostal space. ABDOMEN: Soft, positive bowel sound. GENITALIA: Male. RECTAL: Examination is deferred. EXTREMITY: Shows positive left foot dressing. No pitting edema, no calf tenderness, no Homans' sign. NEUROLOGIC: The patient is alert, awake, responsive, is able to follow command and move upper and lower extremity without assistance. Gait examination is not tested. MUSCULOSKELETAL: Examination shows a body mass index of 23. DIAGNOSTICS: WBC 13, hemoglobin and hematocrit 11.1 and 33.5, platelet 421. Sodium 135, potassium 4.9, chloride 95, CO2 of 27, anion gap 18, BUN 66, creatinine 2.3, glucose 172. Fingerstick blood sugar yesterday after decreasing the patient's insulin went up to 446, 425, 237, 225, calcium 9.4, phosphorus 4.4, magnesium 2.4. LFTs are normal. IMPRESSION: 1. Pseudomonas aeruginosa, Proteus mirabilis and beta-hemolytic Streptococcus group B acute osteomyelitis of the left foot toe with gangrenous necrosis and gouty tophi. 2. Left foot diabetic foot ulceration. 3. Status post left foot great toe amputation and second metatarsal amputation and left foot second, third and fourth toe removal and wound debridement. 4. Tachycardia. 5. Hypertension. 6. Persistent refractory leukocytosis with granulocytosis. 7. Normocytic anemia. 8. Uncontrolled insulin-requiring diabetes mellitus with hyperglycemia. 9. Acute kidney injury with chronic kidney disease stage 4. 10. Proteinuria, microscopic hematuria, bacteriuria. 11. 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 12. Status post packed red blood cell transfusion x3. 13. Dilated cardiomyopathy with ejection fraction of 35% to 40%. 14. Acute kidney injury with underlying hypertensive diabetic chronic kidney disease stage 3. 15. Anemia. 16. Mitral and tricuspid regurgitation. 1. Osteomyelitis of the left foot great toe and left foot with gangrenous necrosis and gouty tophi. 2. Severe bilateral lower extremity peripheral vascular disease with ankle-brachial index of less than 1. 3. Uncontrolled type 2 diabetes mellitus with hyperglycemia and elevated hemoglobin A1c and fructosaminemia. 4. History of hypertension. 5. Tachycardia. 6. High-grade fever. 7. History of hyperuricemia and gouty arthritis. 8. Questionable monoclonal gammopathy of unknown significance with elevated kappa lambda issue. 9. Gait dysfunction. 10. Deconditioning with gait dysfunction with nonweightbearing status of the left foot and left lower extremity. 11. Leukocytosis with granulocytosis. 12. Persistent refractory leukocytosis with granulocytosis. 13. Anemia with decreasing hemoglobin/hematocrit status post packed red blood cell transfusion x3. 14. Transient confusional state and disorientation, questionable delirium versus toxic metabolic encephalopathy secondary to underlying medical problems. 15. Dilated cardiomyopathy with ejection fraction of 35%. 16. [id number] mitral and tricuspid regurgitation. 17. Acute kidney injury with underlying hypertensive diabetic chronic kidney disease. 18. Hyperphosphatemia. 19. Questionable secondary hyperparathyroidism with hyperphosphatemia. 20. Gait dysfunction. 1. Acute left foot, left second toe osteomyelitis with gangrenous necrosis and gouty tophi. 2. Severe peripheral vascular disease of the lower extremity. 3. Status post left foot great toe amputation and metatarsal amputation. 4. Status post left foot wound debridement. 5. Status post left foot second and third toe nail removal. 6. Uncontrolled insulin-requiring diabetes mellitus with hyperglycemia. 7. Left foot diabetic foot ulceration and cellulitis and acute osteomyelitis. 8. Persistent refractory leukocytosis with granulocytosis. 9. Normocytic anemia, status post packed red blood cell transfusion x3. 10. Acute kidney injury with underlying hypertensive diabetic chronic kidney disease stage III. 11. History of hyperuricemia and gout. 12. Gait dysfunction. 13. Delirium with episodic and transient confusional and disorientation state versus delirium. 14. Possible underlying toxic metabolic encephalopathy secondary to multiple comorbidities and medical comorbidities. 15. History of hypertension. 16. History of cardiomyopathy with left ventricular ejection fraction of 35%. 17. Questionable and possible monoclonal gammopathy of unknown significance. 18. Deconditioning. 19. Hypotension. 1. Left foot great toe and left foot acute osteomyelitis secondary to Pseudomonas aeruginosa, Proteus mirabilis and beta hemolytic group B strep. 2. Severe peripheral vascular disease of the lower extremity. 3. Refractory slow resolving leukocytosis with granulocytosis. 4. Normocytic anemia with decreasing hemoglobin and hematocrit. 5. Status post packed red blood cell transfusion. 6. Uncontrolled diabetes mellitus with hyperglycemia and elevated hemoglobin A1c. 7. Severe peripheral vascular disease of the lower extremity. 8. Acute kidney injury with underlying hypertensive diabetic chronic kidney disease. 9. Normocytic anemia, status post packed red blood cell transfusion x2. 10. Gouty tophi and history of gouty arthritis and hyperuricemia. 11. History of hypertension. 12. Presently hypotension. 13. Tachycardia. 14. Dilated cardiomyopathy with left ventricle ejection fraction around 35%. 15. Severe tricuspid and mitral regurgitation. 16. History of severe noncompliance and poor compliance. 17. Severe peripheral vascular disease. 18. Gait dysfunction. 19. Deconditioning. 20. Transient confusional state versus delirium versus encephalopathy secondary to underlying multiple comorbidity. 21. Gait dysfunction with nonweightbearing status of the left foot. 22. Status post left foot great toe amputation and metatarsal amputation and debridement of the left foot wound and removal of the left foot second and third toe. 1. Left foot great toe and left foot acute osteomyelitis. 2. Non-hemolyzed hyperkalemia. 3. Acute kidney injury and underlying hypertensive/diabetic chronic kidney disease stage 3/4. 4. Leukocytosis with granulocytosis. 5. Anemia. 6. Status post packed red blood cell transfusion x3. 7. Transient confusional state with possible delirium and toxic metabolic encephalopathy. 8. Hypotension. 9. Tachycardia. 10. High-grade fever. 11. Diabetic ulceration of the left foot with acute osteomyelitis of the left foot and toe. 12. Severe peripheral vascular disease of the lower extremity. 13. History of hypertension. 14. History of type 2 diabetes mellitus. 15. History of peripheral vascular disease. 16. History of hyperuricemia and gout. 17. History of [id number] diabetes mellitus. 18. History of poor compliance and noncompliance. 1. Left foot great toe acute osteomyelitis with gangrenous necrosis and gouty tophi. 2. Status post left foot debridement and amputation of the left foot great toe and second metatarsal amputation. 3. Status post debridement of the left foot diabetic foot ulceration and removal of the left foot third and fourth toe nails. 4. Fever. 5. Tachycardia. 6. Persistent leukocytosis with granulocytosis. 7. Normocytic anemia. 8. Status post packed red blood cell transfusion x3. 9. Elevated erythrocyte sedimentation rate of 122. 10. Uncontrolled diabetes mellitus with hyperglycemia and hypoglycemia with hemoglobin A1c of 8.6 and fructosamine of 329. 11. Acute kidney injury with underlying chronic kidney disease stage 3/4. 12. Proteinuria, microscopic hematuria, bacteriuria. 13. 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 14. Proteus mirabilis, Pseudomonas aeruginosa,and beta-hemolytic Streptococcus group B left foot diabetic foot ulceration and acute osteomyelitis. 15. Gait dysfunction. 16. Deconditioning with nonweightbearing status of the left foot. 17. Sepsis with Pseudomonas aeruginosa, Proteus mirabilis and group B Streptococcal left foot acute osteomyelitis, cellulitis and diabetic foot ulceration. 18. Questionable delirium versus toxic metabolic encephalopathy. 19. Constipation. 20. Iron deficiency. 21. Prostatic hypertrophy. 22. Hyperuricemia and gouty arthritis. 23. Hypotension. 1. Left foot great toe acute osteomyelitis with gangrenous necrosis and gouty tophi. 2. Status post left foot debridement and amputation of the left foot great toe and second metatarsal. 3. Status post debridement of the left foot and removal of the left foot third and fourth toe nails. 4. Fever. 5. Tachycardia. 6. Hypotension. 7. Persistent refractory leukocytosis with granulocytosis. 8. Elevated erythrocyte sedimentation rate 222. 9. Acute kidney injury with underlying chronic kidney disease stage III to IV. 10. Uncontrolled insulin-requiring diabetes mellitus with hemoglobin A1c of 8.6 and fructosamine of 329. 11. Lactic acidosis. 12. Elevated C-reactive protein of greater than 15. 13. Hypertriglyceridemia. 14. Decreased HDL of 18. 15. Questionable iron deficiency. 16. Questionable delirium with episodic forgetfulness and disorientation versus toxic metabolic encephalopathy. 17. Proteinuria, microscopic hematuria, and bacteriuria. 18. Questionable monoclonal gammopathy of unknown significance with elevated total kappa/lambda ratio. 19. Left foot great toe Proteus mirabilis, Pseudomonas aeruginosa, and beta hemolytic strep group B osteomyelitis and diabetic foot ulceration. 20. Status post packed red blood cell transfusion x3. 21. Gait dysfunction. 22. Deconditioning. 23. History of gout and hyperuricemia. 24. Acute kidney injury with underlying hypertensive and diabetic chronic kidney disease stage III/IV. 25. Severe mitral and tricuspid regurgitation with systolic congestive heart failure, left ventricle ejection fraction of 35% to 40%. 26. Encephalopathy. 27. Constipation. 28. Prostatic hypertrophy. 1. Acute osteomyelitis of the left foot great toe. 2. Episodic confusion, forgetfulness and disorientation, etiology unclear, questionable delirium versus encephalopathy. 3. Persistent leukocytosis. 4. 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 5. Status post left foot great toe amputation and fifth metatarsal left foot great toe amputation and metatarsal amputation. 6. 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 7. Uncontrolled diabetes mellitus with hypoglycemia. 8. Recurrent high-grade fever. 9. High-grade fever. 10. Tachycardia. 11. Hypotension. 12. History of dilated cardiomyopathy, etiology undetermined. 13. Normocytic anemia, status post packed red blood cell transfusion x3. 14. Persistent refractory leukocytosis with granulocytosis. 15. Uncontrolled diabetes mellitus with hyperglycemia and episodic hypoglycemia. 16. Left foot diabetic foot ulceration and left foot great toe acute osteomyelitis. 17. Severe peripheral vascular disease of the lower extremity. 18. Gait dysfunction. 19. Deconditioning. 20. Noncompliance. 21. History of hypertension, hyperuricemia and gout. 22. Possible monoclonal gammopathy of unknown significance with elevated kappa lambda ratio. 1. Left foot great toe acute osteomyelitis and gangrenous necrosis with gouty tophi with acute gangrenous necrosis and acute osteomyelitis. 2. High-grade fever. 3. Tachycardia. 4. Hypotension. 5. Proteus mirabilis, Pseudomonas aeruginosa and beta hemolytic streptococcus group B left foot great toe osteomyelitis, diabetic foot ulceration and cellulitis. 6. Severe peripheral vascular disease. 7. Refractory leukocytosis. 8. Granulocytosis. 9. Elevated erythrocyte sedimentation rate of 122. 10. Normocytic anemia. 11. Status post packed red blood cell transfusion x3. 12. Uncontrolled insulin-requiring diabetes mellitus with hyperglycemia and hemoglobin A1c of 8.6 and fructosamine of 329. 13. Gait dysfunction secondary to nonweightbearing status of the left foot and toe. 14. Deconditioning. 15. Questionable delirium. 16. Iron-deficiency. 17. Hypertriglyceridemia with decreased high-density lipoprotein. 18. Lactic acidosis. 19. Elevated C-reactive protein no greater than 15. 20. Acute kidney injury with underlying chronic kidney disease, stage 3/4. 21. Proteinuria. 22. Microscopic hematuria, pyuria, bacteriuria. 23. Questionable monoclonal gammopathy of unknown significance with elevated kappa to lambda ratio. 24. Status post left foot great toe amputation and second metatarsal amputation and removal of the third and fourth toe nail and wound debridement. 25. Hypertensive diabetic chronic kidney disease. 26. Severe mitral regurgitation with systolic congestive heart failure and cardiomyopathy with ejection fraction of 35%. 27. Monoclonal gammopathy of unknown significance. 28. Episodic confusion and disorientation. 29. Constipation. 30. Insulin-requiring diabetes mellitus. 31. Hypertension. 1. 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 2. Recurrent fever. 3. Tachycardia. 4. Hypertension. 5. Persistent refractory leukocytosis. 6. Normocytic anemia. 7. Status post packed red blood cell transfusion x3. 8. Reactive thrombocytosis. 9. Granulocytosis. 10. Acute kidney injury with chronic kidney disease stage 4. 11. Status post left foot left great toe amputation and metatarsal amputation. 12. Status post left foot second and third toe removal. 13. Left foot wound debridement. 14. Severe peripheral vascular disease. 15. Uncontrolled diabetes mellitus with hyperglycemia and elevated hemoglobin A1c. 16. Transitional confusional and disorientation state. 17. Possible delirium versus toxic metabolic encephalopathy. 18. Hypotension. 1. Pseudomonas aeruginosa, Proteus mirabilis and beta hemolytic group B Streptococcus, left foot diabetic ulceration and gangrene. 2. Status post status post left foot great toe amputation and metatarsal amputation. 3. Status post removal of the second and third toe nail. 4. Status post left foot wound debridement. 5. Severe peripheral vascular disease of the lower extremity with ankle-brachial indexes of less than 1. 6. History of chronic osteomyelitis of the left foot. 7. Normocytic anemia. 8. Refractory leukocytosis, slow resolving. 9. Reactive thrombocytosis. 10. Leukocytosis with granulocytosis. 11. Status post packed red blood cell transfusion x3. 12. Hypertensive and diabetic chronic kidney disease stage III. 13. Uncontrolled diabetes mellitus with hyperglycemia and elevated hemoglobin A1c. 14. Deconditioning. 15. Gait dysfunction. 16. Questionable delirium versus encephalopathy versus transient confusional and disorientation state. 17. History of hyperuricemia and gout. 18. History of poor compliance, noncompliance. 19. Tachycardia. 20. High-grade fever. 21. Transient hypotension. 22. Dilated cardiomyopathy with left ventricular ejection fraction of 35%. 23. Severe mitral and tricuspid regurgitation. 24. Severe peripheral vascular disease of the lower extremity. 1. Sepsis, secondary to left foot diabetic foot ulceration secondary to Proteus mirabilis, Pseudomonas aeruginosa, beta hemolytic group B strep. 2. High-grade fever. 3. Tachycardia. 4. Episodic hypotension. 5. Leukocytosis with granulocytosis. 6. Acute kidney injury with underlying chronic kidney disease stage 4. 7. Uncontrolled non-insulin requiring diabetes mellitus with hyperglycemia and elevated hemoglobin A1c and elevated fructosamine of 329. 8. Episodic disorientation and confusion, possible questionable delirium versus toxic metabolic encephalopathy. 9. Proteinuria, microscopic hematuria, bacteriuria. 10. Monoclonal gammopathy, of unknown significance. 11. Metabolic acidosis. 12. Hypertensive, diabetic, chronic kidney disease stage 3. 13. Severe mitral, tricuspid regurgitation with systolic congestive heart failure and cardiomyopathy with ejection fraction of 35%. 14. Left foot grade 2 amputation, second metatarsal amputation, and third and fourth toe toenail removal and wound debridement. 15. Cardiomyopathy. 16. Severe peripheral vascular disease of the lower extremity. 17. Persistent refractory leukocytosis. 18. Chronic microvascular ischemic disease of the brain and cerebral cortical atrophy of the brain. 19. Gait dysfunction. 20. Deconditioning. 21. Transient confusion state secondary to transient cerebral hypoperfusion and hyperglycemic fluctuations. 1. Status post left foot great toe amputation and second metatarsal amputation and third and fourth digit toenail removal and left foot wound debridement, postop day #1. 2. Chronic nonhealing left foot diabetic foot ulceration and possible gangrene. 3. Fever. 4. Tachycardia. 5. Hypotension. 6. Persistent refractory leukocytosis with granulocytosis. 7. Normocytic anemia, status post packed red blood cell transfusion x3. 8. Uncontrolled diabetes mellitus with hyperglycemia and elevated hemoglobin A1c of 8.6. 9. Hyper fructosemia. 10. Lactic acidosis. 11. Hyperuricemia. 12. Possible iron-deficiency. 13. Elevated C-reactive protein of greater than 15. 14. Hypertriglyceridemia. 15. Proteinuria. 16. Microscopic hematuria. 17. Bacteriuria. 18. Elevated total kappa lambda ratio. 19. Pseudomonas aeruginosa and beta hemolytic strep group B left foot diabetic foot ulceration. 20. Status post packed red blood cell transfusion x3. 21. Left foot cellulitis. 22. Chronic microvascular ischemic disease of the brain and cerebral cortical atrophy of the brain. 23. Sepsis with Pseudomonas aeruginosa and group B Streptococcus beta hemolytic Streptococcus left foot diabetic foot ulcerations and cellulitis. 24. Kidney injury with underlying chronic kidney disease. 25. Hypertensive diabetic chronic kidney disease. 26. Stage III chronic kidney disease secondary to hypertension and vasculopathy. 27. Anemia. 28. Monoclonal gammopathy of unknown significance. 29. Transient and episodic confusion and disorientation, probably secondary to transient cerebral hypoperfusion and uncontrolled diabetes mellitus. 30. Sepsis. 1. Group B Streptococcus and Pseudomonas aeruginosa, left foot diabetic foot ulceration and gangrene and cellulitis. 2. History of chronic osteomyelitis of the left foot. 3. High-grade fever. 4. Questionable sepsis versus systemic inflammatory response syndrome. 5. Tachycardia. 6 Hypotension. 7. Questionable and possible encephalopathy versus toxic metabolic encephalopathy with episodic confusion and disorientation. 8. Type 2 diabetes mellitus. 9. Anemia of chronic disease. 10. Status post packed red blood cell transfusion x2. 11. Gait dysfunction. 12. Deconditioning. 13. Status post left foot big toe amputation,2nd metatarsal amputation, wound debridement and 3rd and 4th toe nail removal. 14. Persistent refractory leukocytosis with granulocytosis 15. Normocytic anemia. 16. Uncontrolled type 2 diabetes mellitus with hyperglycemia. 17. Microvascular ischemic disease of the brain. 18. Cerebral cortical atrophy of the brain. 19. Gait dysfunction with nonweightbearing status of the left foot. 20. Severe peripheral vascular disease of the lower extremity with severe bilateral tibial and distal lower extremities severe occlusive disease with ankle-brachial index is of less than 1. 21. History of hypertension. 22. History of gout and hyperuricemia. 23. History of gouty arthritis. 24. Dilated cardiomyopathy with ejection fraction of 35% with severe mitral and tricuspid regurgitation. 25. Acute kidney injury with underlying chronic kidney disease stage III. 26. Proteinuria and microscopic hematuria. 1. High-grade fever and new fever. 2. Tachycardia. 3. Hypotension. 4. Questionable sepsis versus systemic inflammatory response syndrome with high-grade fever, tachycardia, hypotension. 5. Persistent refractory leukocytosis with granulocytosis. 6. Normocytic anemia. 7. Status post packed red blood cell transfusion x2. 8. Uncontrolled type 2 noninsulin-requiring diabetes mellitus with hyperglycemia. 9. Left foot Pseudomonas aeruginosa, group B Streptococcus with beta-hemolytic left foot, and left foot diabetic ulceration and possible diabetic left foot gangrene. 10. Proteinuria. 11. Microscopic hematuria. 12. Bacteriuria. 13. Left foot group B streptococcal beta-hemolytic and Pseudomonas aeruginosa left foot diabetic foot ulceration. 14. Episodic disorientation and confusion, etiology undetermined. 15. Questionable toxic metabolic encephalopathy. 16. Hyperglycemia secondary to uncontrolled diabetes mellitus. 17. Status post packed red blood cell transfusion x2. 18. Persistent refractory leukocytosis. 19. Left foot diabetic ulceration and diabetic cellulitis. 20. Dilated cardiomyopathy. 21. History of poor compliance and noncompliance. 22. History of hyperuricemia and gout. 23. 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 24. Gait dysfunction. 25. Deconditioning. 1. Left foot diabetic ulceration and nonhealing diabetic ulceration with possible diabetic gangrene of the left foot and great toe and the left foot toes with group B Streptococcus and Pseudomonas aeruginosa, cellulitis and diabetic foot gangrene of the left foot. 2. Uncontrolled diabetes mellitus with elevated hemoglobin A1c. 3. Fever. 4. Questionable sepsis. 5. Tachycardia. 6. Possible sepsis versus systemic inflammatory response syndrome. 7. Fever. 8. Transient hypotension. 9. Dilated cardiomyopathy. 10. Persistent refractory leukocytosis. 11. Normocytic anemia status post packed red blood cell transfusion. 12. Granulocytosis. 13. Acute kidney injury with underlying chronic kidney disease, stage IV. 14. Uncontrolled diabetes mellitus with hyperglycemia and an elevated hemoglobin A1c and hyperfructosemia. 15. History of poor compliance and noncompliance. 16. History of hyperuricemia and gout. 17. Severe peripheral vascular disease. 18. History of severe peripheral vascular disease of the lower extremity. 19. Severe mitral and tricuspid regurgitation. 20. Cardiomyopathy with ejection fraction of around 35%. 21. History of poor compliance. 22. History of chronic osteomyelitis of the left foot and partial amputation of the left foot second toe. 1. Fever. 2. Sinus tachycardia. 3. Pseudomonas nose group. Group B streptococcus group B beta hemolytic left foot diabetic foot ulcerations and cellulitis and gangrene. 4. Severe peripheral vascular disease. 5. Persistent refractory leukocytosis with granulocytosis. 6. Anemia with decreasing hemoglobin/hematocrit. 7. Elevated erythrocyte sedimentation rate of 122. 8. Chronic kidney disease, stage 3. 9. Hyperglycemia secondary to uncontrolled diabetes mellitus with hemoglobin A1c of 8.6 and hyper fructose anemia. 10. Transaminitis. 11. Iron-deficiency anemia. 12. Hypertriglyceridemia. 13. Elevated C-reactive protein of greater than 15. 14. Lactic acidosis. 15. Status post packed red blood cell transfusions x2. 16. Left foot erosive changes. 17. Severe peripheral vascular disease of bilateral popliteal trifurcation and tibial disease with normal resting ankle-brachial indices. 18. Chronic osteomyelitis of the left foot with bony destruction and sclerosis around the first metatarsophalangeal joint and partial amputation of the second proximal phalanx. 19. Severe degenerative joint disease of the left midfoot. 20. Left axis deviation. 21. Acute kidney injury with underlying chronic kidney disease. 22. Metabolic acidosis. 23. Hypertensive diabetic chronic kidney disease stage 3 without proteinuria. 24. Monoclonal gammopathy of unknown significance. 25. Severe mitral, tricuspid regurgitation with cardiomyopathy, left ventricular ejection fraction of 35% to 40%. 26. Left foot diabetic foot ulceration and gangrene. 27. Congestive heart failure with reduced ejection fraction. 28. Nonhealing left foot diabetic ulceration. 29. Sepsis with left foot cellulitis and diabetic foot ulceration with Pseudomonas secondary to Pseudomonas aeruginosa and Streptococcus group B beta hemolytic Streptococcus. 30. Questionable and possible delirium versus encephalopathy. 31. Gait dysfunction. 32. Deconditioning. 33. Constipation. 34. Hypovitaminosis D. 35. Prostatic hypertrophy. 36. Hyperlipidemia. 37. Hyperuricemia. 38. Hyperglycemia. 39. Uncontrolled diabetes mellitus with hyperglycemia. 40. Gait dysfunction. 41. History of poor compliance and noncompliance. 1. Left foot Pseudomonas aeruginosa and group B beta hemolytic strep, left foot diabetic foot ulceration and cellulitis. 2. Sepsis secondary to Pseudomonas aeruginosa and group B beta hemolytic strep, left diabetic foot ulceration and cellulitis. 3. Hypertension. 4. Tachycardia. 5. Anemia. 6. Status post packed red blood cell transfusion one unit. 7. Leukocytosis with granulocytosis. 8. Elevated erythrocyte sedimentation rate of 122. 9. Iron-deficiency. 10. Acute kidney injury with underlying chronic kidney disease, stage IV. 11. Uncontrolled diabetes mellitus with hyperglycemia and elevated hemoglobin A1c of 8.6 and elevated fructose, a mean of 329. 12. Transient lactic acidosis. 13. Transaminitis. 14. Hypertriglyceridemia. 15. Elevated C-reactive protein of greater than 15. 16. Gait dysfunction. 17. Deconditioning. 18. Metabolic acidosis. 19. 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 20. Severe mitral, tricuspid regurgitation and systolic congestive heart failure. 21. Left foot cellulitis and left foot diabetic ulceration. 22. Left diabetic foot ulceration and possible gangrene or pre-gangrenous condition of the left foot toes. 23. Left foot second digit amputation. 24. Peripheral vascular disease. 25. Left foot second toe amputation with cyanosis and mummification of the toes and forefoot of the left foot. 26. Severe tibial disease of the lower extremity. 27. Peripheral vascular disease. 28. Anemia of chronic disease. 29. Bilateral popliteal trifurcation and tibial disease. 30. Left anterior hemiblock. 1. Left foot Pseudomonas aeruginosa and group B Streptococcus beta hemolytic left foot cellulitis and diabetic foot ulcer. 2. Severe peripheral vascular disease of the lower extremity. 3. Normocytic anemia with decreasing hemoglobin. 4. Leukocytosis with granulocytosis. 5. Uncontrolled diabetes mellitus with hyperglycemia. 6. Acute kidney injury with underlying chronic kidney disease stage III/IV. 7. Transaminitis. 8. Probably anemia of chronic kidney disease. 9. Acute kidney injury with underlying chronic kidney disease. 10. Metabolic acidosis. 11. Hypertensive diabetic chronic kidney disease. 12. [id number]-[id number] mitral regurgitation and [id number]-[id number]-[id number] tricuspid regurgitation. 13. Dilated cardiomyopathy with ejection fraction of 35%. 14. Sepsis. 15. Hypertension. 16. Gait dysfunction. 17. Deconditioning. 18. Bilateral lower extremity peripheral vascular disease. 19. History of poor compliance and noncompliance. 20. History of hyperuricemia and gout. 1. Left foot cellulitis versus gangrene versus pregangrenous state. 2. Sepsis. 3. Tachycardia. 4. Transient episodic hypotension. 5. Leukocytosis with granulocytosis 6. Elevated erythrocyte sedimentation rate of 122. 7. Normocytic anemia. 8. Chronic kidney disease stage 4 with acute kidney injury. 9. Uncontrolled noninsulin-requiring diabetes mellitus with hyperglycemia and hemoglobin A1c of 8.6. 10. Possible iron-deficiency. 11. Hypertriglyceridemia. 12. Elevated C-reactive protein of greater than 15. 13. Transient lactic acidosis. 14. Transaminitis. 15. Deconditioning. 16. Gait dysfunction. 17. Anemia with decreasing hemoglobin and hematocrit. 18. Metabolic acidosis. 19. Diabetic hypertensive chronic kidney disease. 20. Chronic kidney disease stage 3 without proteinuria. 21. Severe mitral and tricuspid regurgitation. 22. Systolic congestive heart failure. 23. Dilated ischemic cardiomyopathy, etiology undetermined. 1. Left foot cellulitis with diabetic foot disease and possible abscess versus possible osteomyelitis. 2. History of left foot second toe amputation. 3. Hypertension. 4. Tachycardia. 5. Fever. 6. Poor compliance and noncompliance. 7. Leukocytosis with granulocytosis. 8. Normocytic anemia. 9. Elevated erythrocyte sedimentation rate of 122. 10. Chronic kidney disease, stage IV with acute kidney injury. 11. Transient lactic acidosis. 12. History of hyperuricemia. 13. Hypertriglyceridemia. 14. Aortic calcification. 15. Bilateral lower extremity popliteal trifurcation and tibial peripheral vascular disease. 16. Left foot first metatarsophalangeal joint bony destruction and sclerosis, chronic osteomyelitis. 17. 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 18. 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 19. Sinus tachycardia with left anterior hemiblock. 20. Deconditioning. 21. History of poor compliance. 22. Chronic dilated ischemic cardiomyopathy with ejection fraction of . 23. History of hypertension. 24. History of heart failure with reduced ejection fraction of 35%. 25. Pulmonary hypertension with right ventricular systolic pressure of 40 mmHg. 26. Left ventricular global hypokinesis and moderately impaired left ventricular systolic function. 27. Mild aortic regurgitation. 28. Moderate to severe mitral regurgitation. 29. Moderate tricuspid regurgitation. 30. History of constipation. 31. Hypovitaminosis D. 32. History of iron-deficiency anemia. 33. Prostatic hypertrophy. 34. Insulin-requiring diabetes mellitus. 35. Hyperlipidemia. 36. History of peripheral vascular disease. 37. Hyperuricemia. 1. Left foot diabetic foot ulceration versus left foot abscess versus left foot toe osteomyelitis. 2. Tachycardia. 3. Leukocytosis with granulocytosis. 4. Questionable systemic inflammatory response syndrome. 5. Uncontrolled diabetes mellitus with hyperglycemia. 6. Chronic kidney disease stage IV. 7. Mild transaminitis. 8. History of hypertension. 9. Hyperlipidemia. 10. History of prostatic hypertrophy. 11. History of iron-deficiency anemia. 12. History of hypovitaminosis D. 13. History of dilated cardiomyopathy. 14. History of pulmonary hypertension. 15. History of moderate tricuspid regurgitation and mitral regurgitation. 16. Hyperuricemia. PLAN: At this time, we are waiting for Vascular Surgery intervention. Current medications are Colace 100 mg three times a day, Dakin solution topically, hypoglycemia protocol, ferrous gluconate 324 mg three times a day, Flomax 0.4 mg daily, heparin 5000 subcu every 8 hours, Humalog medium dose sliding scale coverage, NPH increased to 17 units with breakfast and dinner, meropenem 500 IV every 12 hours, MiraLax 17 g twice a day, Nephro-Sumit 1 tablet daily, Pepcid 20 mg twice a day, midodrine 5 mg three times a day, Protonix 40 mg daily, Tylenol 650 mg p.o. suppository every 6 hours p.r.n., Zofran 4 mg IV every 4 hours p.r.n. As mentioned, we are waiting for Vascular Surgery intervention regarding definitive treatment about the patient's left foot whether transmetatarsal amputation versus left below-knee amputation. Dictated and electronically signed, not read. Niranjan Ling MD [facility]
--- NOTE | 2018-12-09 13:27 | CP.PCM.PCO ---
Physician Communication Note - Physician Communication Note Physician Communication Note: OR Fri. TMA vs BKA
--- NOTE | 2018-12-09 14:26 | RAD ---
Date of service: 12/09/2018 HISTORY: WBC unexplained, r/o PNA COMPARISON: 11/16/2018 TECHNIQUE: 1 view obtained. FINDINGS: LUNGS: No active pulmonary disease. PLEURA: No significant pleural effusion identified, no pneumothorax apparent. CARDIOVASCULAR: Aortic calcification Normal cardiac size. No pulmonary vascular congestion. OSSEOUS STRUCTURES: No significant abnormalities. VISUALIZED UPPER ABDOMEN: Normal. OTHER FINDINGS: None. IMPRESSION: No active disease.
--- NOTE | 2018-12-09 16:02 | PN ---
DATE: 12/09/2018 SUBJECTIVE: The patient is in bed, in no acute distress, nontoxic. No fevers. PHYSICAL EXAMINATION: VITAL SIGNS: Temperature is 98, blood pressure is 115/70, respiratory rate of 18. HEENT: Unremarkable. NECK: Supple. LUNGS: Have decreased breath sounds. HEART: Normal S1 and S2. ABDOMEN: Soft. LABORATORY EXAMINATION: Reveals a white count of 13,000. Chemistries reveal the creatinine is 2.3. REVIEW OF ORDERS: Reveals the patient to be on methylprednisolone and meropenem. ASSESSMENT AND PLAN: A 73-year-old male with left leg second toe and second metatarsal amputation postprocedure day #16 with Charcot's foot with Proteus and Pseudomonas, on meropenem. The patient is scheduled for surgery for tomorrow. Tai Landaverde MD
[2018-12-10 07:13] LABS: HEMOGLOBIN 11.2 g/dL (14.0-18.0); MEAN CORPUSCULAR HEMOGLOBIN 30.4 pg (25.0-35.0); MEAN CORPUSCULAR HGB CONC 32.3 g/dl (31.0-37.0); MEAN PLATELET VOLUME 9.4 fl (7.0-11.0); RBC 3.69 10^6/uL (3.5-6.1); RED CELL DISTRIBUTION WIDTH 16.5 % (11.5-14.5); WHITE BLOOD COUNT 10.6 10^3/uL (4.5-11.0)
[2018-12-10 07:23] LABS: ALBUMIN 3.8 g/dL (3.0-4.8); BILIRUBIN,DIRECT 0.3 mg/dL (0.0-0.4); CALCIUM 9.4 mg/dL (8.4-10.5)
[2018-12-10] MEDS: Insulin Lispro (humaLOG) MEDIUM Coverage SC SCH ×3 (08:08→17:45)
[2018-12-10] MEDS: Insulin Human NPH 1 UNITS/0.01 ML SC SCH ×2 (08:09→17:46)
[2018-12-10] MEDS: Pantoprazole 40 mg EC Tab PO SCH (08:09)
[2018-12-10] MEDS: Multivitamin Vitamin B Complex (Nephro-Vite) Tab PO SCH (08:09)
[2018-12-10] MEDS ORDERED: Etomidate 20 mg/10ml Inj IV ONE (10:44)
[2018-12-10] MEDS ORDERED: Propofol 10 mg/ml Inj (20 ML) ONE (10:44)
[2018-12-10] MEDS: Nystatin 100,000 Units/gm Topical Pow(15 gm) TOP SCH ×2 (11:10→17:46)
[2018-12-10] MEDS: MEROPENEM 500 MG in NS 500 MG/50 ML BAG IVPB SCH ×2 (11:10→22:17)
[2018-12-10] MEDS: POLYETHYLENE GLYCOL 3350 17 GM/Dose PACKET PO SCH ×2 (11:10→17:46)
[2018-12-10] MEDS: Dakin's Topical 0.25%-Half Strength (480 ml) TOP SCH (11:10)
[2018-12-10] MEDS ORDERED: Bupivacaine Liposomal Inj 20 ml INJ ONE (11:20)
--- NOTE | 2018-12-10 11:46 | CARD ---
APPROVED REPORT Date of service: 12/09/2018 EKG Measurement Heart [id number] <Conclusion> Normal sinus rhythm Left anterior fascicular block Poor R wave progression in Precordial leads Cannot rule out Inferior infarct (masked by fascicular block?), age undetermined Abnormal ECG
[2018-12-10] MEDS ORDERED: Bupivacaine Liposomal Inj 20 ml ONE (11:57)
--- NOTE | 2018-12-10 12:45 | PN ---
DATE: 12/10/2018 SUBJECTIVE: The patient is seen lying in the bed in room 575, bed 1. The patient is seen lying in the bed. The patient is comfortable, alert, awake, responsive, in no distress. According to the patient's nurses, the patient is scheduled for OR today. Overnight nurse's notes were reviewed. The patient was found to be comfortable. The patient was noticed alert, awake, oriented x2 by the overnight nurse's note. PHYSICAL EXAMINATION: VITAL SIGNS: T-max 98.4, heart rate 94, 97, blood pressure 131/68 to 96/66, respiration 18, O2 sat 98%. HEENT: Head examination normocephalic, atraumatic. HEENT examination shows pinkish pale conjunctivae. Anicteric sclerae. No oropharyngeal lesion. No neck rigidity. CHEST: Kyphosis. LUNGS: Examination shows no audible crackle, rales or wheezing. CARDIOVASCULAR: S1, S2, regular rhythm. Questionable soft systolic murmur left sternal border, right second intercostal space, left second intercostal space. ABDOMEN: Soft, positive bowel sound. No palpable hepatosplenomegaly. GENITALIA: Male. RECTAL: Examination is deferred. EXTREMITY: Shows positive left foot dressing. No pitting edema, no calf tenderness, no Homans' sign. MUSCULOSKELETAL: Examination shows a body mass index of 23. DIAGNOSTICS: 12/10/2018, WBC count is 10.6, hemoglobin and hematocrit 11.2 and 34.7, platelet 454. Sodium 139, potassium 4.8, chloride 98, CO2 of 30, anion gap 16, BUN 67, creatinine 2.4, GFR 27, glucose 89, calcium 9.4, phosphorus 4.6, magnesium 2.5. LFTs are within normal limit. Stool occult blood x2 is negative. IMPRESSION: 1. Proteus mirabilis, Pseudomonas aeruginosa and beta hemolytic Streptococcus group B left foot great toe osteomyelitis and acute osteomyelitis. 2. High-grade fever. 3. Tachycardia. 4. Hypotension. 5. Dilated cardiomyopathy. 6. Left ventricular ejection fraction of 35%. 7. Pulmonary hypertension with right ventricular systolic pressure of 40 mmHg. 8. Moderately impaired left ventricular systolic function and global left ventricular hypokinesis. 9. [id number]-xadesl mitral and xbwyodlg-ic-[id number] tricuspid regurgitation. 10. Gait dysfunction. 11. Deconditioning. 12. Persistent refractory leukocytosis with granulocytosis. 13. Elevated erythrocyte sedimentation rate of 122. 14. Acute kidney injury with underlying hypertensive diabetic chronic kidney disease stage 4. 15. Uncontrolled diabetes mellitus with hemoglobin A1c of 8.6 and fructosamine of 329. 16. Lactic acidosis. 17. Hyperphosphatemia. 18. Proteinuria, microscopic hematuria, bacteriuria. 19. 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 20. Anemia with decreasing hemoglobin and hematocrit and status post packed red blood cell transfusion x3. 21. Episodic confusion and confusional state. 22. Chronic microvascular ischemic disease of the brain with cerebral cortical atrophy of the brain. 23. Left foot great toe acute osteomyelitis with gangrenous necrosis and gouty tophi. 24. Left anterior hemiblock. 25. Status post left foot great toe amputation, second metatarsal amputation and third and fourth toe toenail removal and wound debridement. 26. History of poor compliance and noncompliance. 27. Severe peripheral vascular disease of the lower extremity with ankle-brachial indexes of less than 1 and bilateral popliteal trifurcation and tibial disease. 1. Pseudomonas aeruginosa, Proteus mirabilis and beta-hemolytic Streptococcus group B acute osteomyelitis of the left foot toe with gangrenous necrosis and gouty tophi. 2. Left foot diabetic foot ulceration. 3. Status post left foot great toe amputation and second metatarsal amputation and left foot second, third and fourth toe removal and wound debridement. 4. Tachycardia. 5. Hypertension. 6. Persistent refractory leukocytosis with granulocytosis. 7. Normocytic anemia. 8. Uncontrolled insulin-requiring diabetes mellitus with hyperglycemia. 9. Acute kidney injury with chronic kidney disease stage 4. 10. Proteinuria, microscopic hematuria, bacteriuria. 11. 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 12. Status post packed red blood cell transfusion x3. 13. Dilated cardiomyopathy with ejection fraction of 35% to 40%. 14. Acute kidney injury with underlying hypertensive diabetic chronic kidney disease stage 3. 15. Anemia. 16. Mitral and tricuspid regurgitation. 1. Osteomyelitis of the left foot great toe and left foot with gangrenous necrosis and gouty tophi. 2. Severe bilateral lower extremity peripheral vascular disease with ankle-brachial index of less than 1. 3. Uncontrolled type 2 diabetes mellitus with hyperglycemia and elevated hemoglobin A1c and fructosaminemia. 4. History of hypertension. 5. Tachycardia. 6. High-grade fever. 7. History of hyperuricemia and gouty arthritis. 8. Questionable monoclonal gammopathy of unknown significance with elevated kappa lambda issue. 9. Gait dysfunction. 10. Deconditioning with gait dysfunction with nonweightbearing status of the left foot and left lower extremity. 11. Leukocytosis with granulocytosis. 12. Persistent refractory leukocytosis with granulocytosis. 13. Anemia with decreasing hemoglobin/hematocrit status post packed red blood cell transfusion x3. 14. Transient confusional state and disorientation, questionable delirium versus toxic metabolic encephalopathy secondary to underlying medical problems. 15. Dilated cardiomyopathy with ejection fraction of 35%. 16. [id number] mitral and tricuspid regurgitation. 17. Acute kidney injury with underlying hypertensive diabetic chronic kidney disease. 18. Hyperphosphatemia. 19. Questionable secondary hyperparathyroidism with hyperphosphatemia. 20. Gait dysfunction. 1. Acute left foot, left second toe osteomyelitis with gangrenous necrosis and gouty tophi. 2. Severe peripheral vascular disease of the lower extremity. 3. Status post left foot great toe amputation and metatarsal amputation. 4. Status post left foot wound debridement. 5. Status post left foot second and third toe nail removal. 6. Uncontrolled insulin-requiring diabetes mellitus with hyperglycemia. 7. Left foot diabetic foot ulceration and cellulitis and acute osteomyelitis. 8. Persistent refractory leukocytosis with granulocytosis. 9. Normocytic anemia, status post packed red blood cell transfusion x3. 10. Acute kidney injury with underlying hypertensive diabetic chronic kidney disease stage III. 11. History of hyperuricemia and gout. 12. Gait dysfunction. 13. Delirium with episodic and transient confusional and disorientation state versus delirium. 14. Possible underlying toxic metabolic encephalopathy secondary to multiple comorbidities and medical comorbidities. 15. History of hypertension. 16. History of cardiomyopathy with left ventricular ejection fraction of 35%. 17. Questionable and possible monoclonal gammopathy of unknown significance. 18. Deconditioning. 19. Hypotension. 1. Left foot great toe and left foot acute osteomyelitis secondary to Pseudomonas aeruginosa, Proteus mirabilis and beta hemolytic group B strep. 2. Severe peripheral vascular disease of the lower extremity. 3. Refractory slow resolving leukocytosis with granulocytosis. 4. Normocytic anemia with decreasing hemoglobin and hematocrit. 5. Status post packed red blood cell transfusion. 6. Uncontrolled diabetes mellitus with hyperglycemia and elevated hemoglobin A1c. 7. Severe peripheral vascular disease of the lower extremity. 8. Acute kidney injury with underlying hypertensive diabetic chronic kidney disease. 9. Normocytic anemia, status post packed red blood cell transfusion x2. 10. Gouty tophi and history of gouty arthritis and hyperuricemia. 11. History of hypertension. 12. Presently hypotension. 13. Tachycardia. 14. Dilated cardiomyopathy with left ventricle ejection fraction around 35%. 15. Severe tricuspid and mitral regurgitation. 16. History of severe noncompliance and poor compliance. 17. Severe peripheral vascular disease. 18. Gait dysfunction. 19. Deconditioning. 20. Transient confusional state versus delirium versus encephalopathy secondary to underlying multiple comorbidity. 21. Gait dysfunction with nonweightbearing status of the left foot. 22. Status post left foot great toe amputation and metatarsal amputation and debridement of the left foot wound and removal of the left foot second and third toe. 1. Left foot great toe and left foot acute osteomyelitis. 2. Non-hemolyzed hyperkalemia. 3. Acute kidney injury and underlying hypertensive/diabetic chronic kidney disease stage 3/4. 4. Leukocytosis with granulocytosis. 5. Anemia. 6. Status post packed red blood cell transfusion x3. 7. Transient confusional state with possible delirium and toxic metabolic encephalopathy. 8. Hypotension. 9. Tachycardia. 10. High-grade fever. 11. Diabetic ulceration of the left foot with acute osteomyelitis of the left foot and toe. 12. Severe peripheral vascular disease of the lower extremity. 13. History of hypertension. 14. History of type 2 diabetes mellitus. 15. History of peripheral vascular disease. 16. History of hyperuricemia and gout. 17. History of [id number]-zlsimttfa diabetes mellitus. 18. History of poor compliance and noncompliance. 1. Left foot great toe acute osteomyelitis with gangrenous necrosis and gouty tophi. 2. Status post left foot debridement and amputation of the left foot great toe and second metatarsal amputation. 3. Status post debridement of the left foot diabetic foot ulceration and removal of the left foot third and fourth toe nails. 4. Fever. 5. Tachycardia. 6. Persistent leukocytosis with granulocytosis. 7. Normocytic anemia. 8. Status post packed red blood cell transfusion x3. 9. Elevated erythrocyte sedimentation rate of 122. 10. Uncontrolled diabetes mellitus with hyperglycemia and hypoglycemia with hemoglobin A1c of 8.6 and fructosamine of 329. 11. Acute kidney injury with underlying chronic kidney disease stage 3/4. 12. Proteinuria, microscopic hematuria, bacteriuria. 13. 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 14. Proteus mirabilis, Pseudomonas aeruginosa,and beta-hemolytic Streptococcus group B left foot diabetic foot ulceration and acute osteomyelitis. 15. Gait dysfunction. 16. Deconditioning with nonweightbearing status of the left foot. 17. Sepsis with Pseudomonas aeruginosa, Proteus mirabilis and group B Streptococcal left foot acute osteomyelitis, cellulitis and diabetic foot ulceration. 18. Questionable delirium versus toxic metabolic encephalopathy. 19. Constipation. 20. Iron deficiency. 21. Prostatic hypertrophy. 22. Hyperuricemia and gouty arthritis. 23. Hypotension. 1. Left foot great toe acute osteomyelitis with gangrenous necrosis and gouty tophi. 2. Status post left foot debridement and amputation of the left foot great toe and second metatarsal. 3. Status post debridement of the left foot and removal of the left foot third and fourth toe nails. 4. Fever. 5. Tachycardia. 6. Hypotension. 7. Persistent refractory leukocytosis with granulocytosis. 8. Elevated erythrocyte sedimentation rate 222. 9. Acute kidney injury with underlying chronic kidney disease stage III to IV. 10. Uncontrolled insulin-requiring diabetes mellitus with hemoglobin A1c of 8.6 and fructosamine of 329. 11. Lactic acidosis. 12. Elevated C-reactive protein of greater than 15. 13. Hypertriglyceridemia. 14. Decreased HDL of 18. 15. Questionable iron deficiency. 16. Questionable delirium with episodic forgetfulness and disorientation versus toxic metabolic encephalopathy. 17. Proteinuria, microscopic hematuria, and bacteriuria. 18. Questionable monoclonal gammopathy of unknown significance with elevated total kappa/lambda ratio. 19. Left foot great toe Proteus mirabilis, Pseudomonas aeruginosa, and beta hemolytic strep group B osteomyelitis and diabetic foot ulceration. 20. Status post packed red blood cell transfusion x3. 21. Gait dysfunction. 22. Deconditioning. 23. History of gout and hyperuricemia. 24. Acute kidney injury with underlying hypertensive and diabetic chronic kidney disease stage III/IV. 25. Severe mitral and tricuspid regurgitation with systolic congestive heart failure, left ventricle ejection fraction of 35% to 40%. 26. Encephalopathy. 27. Constipation. 28. Prostatic hypertrophy. 1. Acute osteomyelitis of the left foot great toe. 2. Episodic confusion, forgetfulness and disorientation, etiology unclear, questionable delirium versus encephalopathy. 3. Persistent leukocytosis. 4. 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 5. Status post left foot great toe amputation and fifth metatarsal left foot great toe amputation and metatarsal amputation. 6. 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 7. Uncontrolled diabetes mellitus with hypoglycemia. 8. Recurrent high-grade fever. 9. High-grade fever. 10. Tachycardia. 11. Hypotension. 12. History of dilated cardiomyopathy, etiology undetermined. 13. Normocytic anemia, status post packed red blood cell transfusion x3. 14. Persistent refractory leukocytosis with granulocytosis. 15. Uncontrolled diabetes mellitus with hyperglycemia and episodic hypoglycemia. 16. Left foot diabetic foot ulceration and left foot great toe acute osteomyelitis. 17. Severe peripheral vascular disease of the lower extremity. 18. Gait dysfunction. 19. Deconditioning. 20. Noncompliance. 21. History of hypertension, hyperuricemia and gout. 22. Possible monoclonal gammopathy of unknown significance with elevated kappa lambda ratio. 1. Left foot great toe acute osteomyelitis and gangrenous necrosis with gouty tophi with acute gangrenous necrosis and acute osteomyelitis. 2. High-grade fever. 3. Tachycardia. 4. Hypotension. 5. Proteus mirabilis, Pseudomonas aeruginosa and beta hemolytic streptococcus group B left foot great toe osteomyelitis, diabetic foot ulceration and cellulitis. 6. Severe peripheral vascular disease. 7. Refractory leukocytosis. 8. Granulocytosis. 9. Elevated erythrocyte sedimentation rate of 122. 10. Normocytic anemia. 11. Status post packed red blood cell transfusion x3. 12. Uncontrolled insulin-requiring diabetes mellitus with hyperglycemia and hemoglobin A1c of 8.6 and fructosamine of 329. 13. Gait dysfunction secondary to nonweightbearing status of the left foot and toe. 14. Deconditioning. 15. Questionable delirium. 16. Iron-deficiency. 17. Hypertriglyceridemia with decreased high-density lipoprotein. 18. Lactic acidosis. 19. Elevated C-reactive protein no greater than 15. 20. Acute kidney injury with underlying chronic kidney disease, stage 3/4. 21. Proteinuria. 22. Microscopic hematuria, pyuria, bacteriuria. 23. Questionable monoclonal gammopathy of unknown significance with elevated kappa to lambda ratio. 24. Status post left foot great toe amputation and second metatarsal amputation and removal of the third and fourth toe nail and wound debridement. 25. Hypertensive diabetic chronic kidney disease. 26. Severe mitral regurgitation with systolic congestive heart failure and cardiomyopathy with ejection fraction of 35%. 27. Monoclonal gammopathy of unknown significance. 28. Episodic confusion and disorientation. 29. Constipation. 30. Insulin-requiring diabetes mellitus. 31. Hypertension. 1. 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 2. Recurrent fever. 3. Tachycardia. 4. Hypertension. 5. Persistent refractory leukocytosis. 6. Normocytic anemia. 7. Status post packed red blood cell transfusion x3. 8. Reactive thrombocytosis. 9. Granulocytosis. 10. Acute kidney injury with chronic kidney disease stage 4. 11. Status post left foot left great toe amputation and metatarsal amputation. 12. Status post left foot second and third toe removal. 13. Left foot wound debridement. 14. Severe peripheral vascular disease. 15. Uncontrolled diabetes mellitus with hyperglycemia and elevated hemoglobin A1c. 16. Transitional confusional and disorientation state. 17. Possible delirium versus toxic metabolic encephalopathy. 18. Hypotension. 1. Pseudomonas aeruginosa, Proteus mirabilis and beta hemolytic group B Streptococcus, left foot diabetic ulceration and gangrene. 2. Status post status post left foot great toe amputation and metatarsal amputation. 3. Status post removal of the second and third toe nail. 4. Status post left foot wound debridement. 5. Severe peripheral vascular disease of the lower extremity with ankle-brachial indexes of less than 1. 6. History of chronic osteomyelitis of the left foot. 7. Normocytic anemia. 8. Refractory leukocytosis, slow resolving. 9. Reactive thrombocytosis. 10. Leukocytosis with granulocytosis. 11. Status post packed red blood cell transfusion x3. 12. Hypertensive and diabetic chronic kidney disease stage III. 13. Uncontrolled diabetes mellitus with hyperglycemia and elevated hemoglobin A1c. 14. Deconditioning. 15. Gait dysfunction. 16. Questionable delirium versus encephalopathy versus transient confusional and disorientation state. 17. History of hyperuricemia and gout. 18. History of poor compliance, noncompliance. 19. Tachycardia. 20. High-grade fever. 21. Transient hypotension. 22. Dilated cardiomyopathy with left ventricular ejection fraction of 35%. 23. Severe mitral and tricuspid regurgitation. 24. Severe peripheral vascular disease of the lower extremity. 1. Sepsis, secondary to left foot diabetic foot ulceration secondary to Proteus mirabilis, Pseudomonas aeruginosa, beta hemolytic group B strep. 2. High-grade fever. 3. Tachycardia. 4. Episodic hypotension. 5. Leukocytosis with granulocytosis. 6. Acute kidney injury with underlying chronic kidney disease stage 4. 7. Uncontrolled non-insulin requiring diabetes mellitus with hyperglycemia and elevated hemoglobin A1c and elevated fructosamine of 329. 8. Episodic disorientation and confusion, possible questionable delirium versus toxic metabolic encephalopathy. 9. Proteinuria, microscopic hematuria, bacteriuria. 10. Monoclonal gammopathy, of unknown significance. 11. Metabolic acidosis. 12. Hypertensive, diabetic, chronic kidney disease stage 3. 13. Severe mitral, tricuspid regurgitation with systolic congestive heart failure and cardiomyopathy with ejection fraction of 35%. 14. Left foot grade 2 amputation, second metatarsal amputation, and third and fourth toe toenail removal and wound debridement. 15. Cardiomyopathy. 16. Severe peripheral vascular disease of the lower extremity. 17. Persistent refractory leukocytosis. 18. Chronic microvascular ischemic disease of the brain and cerebral cortical atrophy of the brain. 19. Gait dysfunction. 20. Deconditioning. 21. Transient confusion state secondary to transient cerebral hypoperfusion and hyperglycemic fluctuations. 1. Status post left foot great toe amputation and second metatarsal amputation and third and fourth digit toenail removal and left foot wound debridement, postop day #1. 2. Chronic nonhealing left foot diabetic foot ulceration and possible gangrene. 3. Fever. 4. Tachycardia. 5. Hypotension. 6. Persistent refractory leukocytosis with granulocytosis. 7. Normocytic anemia, status post packed red blood cell transfusion x3. 8. Uncontrolled diabetes mellitus with hyperglycemia and elevated hemoglobin A1c of 8.6. 9. Hyper fructosemia. 10. Lactic acidosis. 11. Hyperuricemia. 12. Possible iron-deficiency. 13. Elevated C-reactive protein of greater than 15. 14. Hypertriglyceridemia. 15. Proteinuria. 16. Microscopic hematuria. 17. Bacteriuria. 18. Elevated total kappa lambda ratio. 19. Pseudomonas aeruginosa and beta hemolytic strep group B left foot diabetic foot ulceration. 20. Status post packed red blood cell transfusion x3. 21. Left foot cellulitis. 22. Chronic microvascular ischemic disease of the brain and cerebral cortical atrophy of the brain. 23. Sepsis with Pseudomonas aeruginosa and group B Streptococcus beta hemolytic Streptococcus left foot diabetic foot ulcerations and cellulitis. 24. Kidney injury with underlying chronic kidney disease. 25. Hypertensive diabetic chronic kidney disease. 26. Stage III chronic kidney disease secondary to hypertension and vasculopathy. 27. Anemia. 28. Monoclonal gammopathy of unknown significance. 29. Transient and episodic confusion and disorientation, probably secondary to transient cerebral hypoperfusion and uncontrolled diabetes mellitus. 30. Sepsis. 1. Group B Streptococcus and Pseudomonas aeruginosa, left foot diabetic foot ulceration and gangrene and cellulitis. 2. History of chronic osteomyelitis of the left foot. 3. High-grade fever. 4. Questionable sepsis versus systemic inflammatory response syndrome. 5. Tachycardia. 6 Hypotension. 7. Questionable and possible encephalopathy versus toxic metabolic encephalopathy with episodic confusion and disorientation. 8. Type 2 diabetes mellitus. 9. Anemia of chronic disease. 10. Status post packed red blood cell transfusion x2. 11. Gait dysfunction. 12. Deconditioning. 13. Status post left foot big toe amputation,2nd metatarsal amputation, wound debridement and 3rd and 4th toe nail removal. 14. Persistent refractory leukocytosis with granulocytosis 15. Normocytic anemia. 16. Uncontrolled type 2 diabetes mellitus with hyperglycemia. 17. Microvascular ischemic disease of the brain. 18. Cerebral cortical atrophy of the brain. 19. Gait dysfunction with nonweightbearing status of the left foot. 20. Severe peripheral vascular disease of the lower extremity with severe bilateral tibial and distal lower extremities severe occlusive disease with ankle-brachial index is of less than 1. 21. History of hypertension. 22. History of gout and hyperuricemia. 23. History of gouty arthritis. 24. Dilated cardiomyopathy with ejection fraction of 35% with severe mitral and tricuspid regurgitation. 25. Acute kidney injury with underlying chronic kidney disease stage III. 26. Proteinuria and microscopic hematuria. 1. High-grade fever and new fever. 2. Tachycardia. 3. Hypotension. 4. Questionable sepsis versus systemic inflammatory response syndrome with high-grade fever, tachycardia, hypotension. 5. Persistent refractory leukocytosis with granulocytosis. 6. Normocytic anemia. 7. Status post packed red blood cell transfusion x2. 8. Uncontrolled type 2 noninsulin-requiring diabetes mellitus with hyperglycemia. 9. Left foot Pseudomonas aeruginosa, group B Streptococcus with beta-hemolytic left foot, and left foot diabetic ulceration and possible diabetic left foot gangrene. 10. Proteinuria. 11. Microscopic hematuria. 12. Bacteriuria. 13. Left foot group B streptococcal beta-hemolytic and Pseudomonas aeruginosa left foot diabetic foot ulceration. 14. Episodic disorientation and confusion, etiology undetermined. 15. Questionable toxic metabolic encephalopathy. 16. Hyperglycemia secondary to uncontrolled diabetes mellitus. 17. Status post packed red blood cell transfusion x2. 18. Persistent refractory leukocytosis. 19. Left foot diabetic ulceration and diabetic cellulitis. 20. Dilated cardiomyopathy. 21. History of poor compliance and noncompliance. 22. History of hyperuricemia and gout. 23. 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 24. Gait dysfunction. 25. Deconditioning. 1. Left foot diabetic ulceration and nonhealing diabetic ulceration with possible diabetic gangrene of the left foot and great toe and the left foot toes with group B Streptococcus and Pseudomonas aeruginosa, cellulitis and diabetic foot gangrene of the left foot. 2. Uncontrolled diabetes mellitus with elevated hemoglobin A1c. 3. Fever. 4. Questionable sepsis. 5. Tachycardia. 6. Possible sepsis versus systemic inflammatory response syndrome. 7. Fever. 8. Transient hypotension. 9. Dilated cardiomyopathy. 10. Persistent refractory leukocytosis. 11. Normocytic anemia status post packed red blood cell transfusion. 12. Granulocytosis. 13. Acute kidney injury with underlying chronic kidney disease, stage IV. 14. Uncontrolled diabetes mellitus with hyperglycemia and an elevated hemoglobin A1c and hyperfructosemia. 15. History of poor compliance and noncompliance. 16. History of hyperuricemia and gout. 17. Severe peripheral vascular disease. 18. History of severe peripheral vascular disease of the lower extremity. 19. Severe mitral and tricuspid regurgitation. 20. Cardiomyopathy with ejection fraction of around 35%. 21. History of poor compliance. 22. History of chronic osteomyelitis of the left foot and partial amputation of the left foot second toe. 1. Fever. 2. Sinus tachycardia. 3. Pseudomonas nose group. Group B streptococcus group B beta hemolytic left foot diabetic foot ulcerations and cellulitis and gangrene. 4. Severe peripheral vascular disease. 5. Persistent refractory leukocytosis with granulocytosis. 6. Anemia with decreasing hemoglobin/hematocrit. 7. Elevated erythrocyte sedimentation rate of 122. 8. Chronic kidney disease, stage 3. 9. Hyperglycemia secondary to uncontrolled diabetes mellitus with hemoglobin A1c of 8.6 and hyper fructose anemia. 10. Transaminitis. 11. Iron-deficiency anemia. 12. Hypertriglyceridemia. 13. Elevated C-reactive protein of greater than 15. 14. Lactic acidosis. 15. Status post packed red blood cell transfusions x2. 16. Left foot erosive changes. 17. Severe peripheral vascular disease of bilateral popliteal trifurcation and tibial disease with normal resting ankle-brachial indices. 18. Chronic osteomyelitis of the left foot with bony destruction and sclerosis around the first metatarsophalangeal joint and partial amputation of the second proximal phalanx. 19. Severe degenerative joint disease of the left midfoot. 20. Left axis deviation. 21. Acute kidney injury with underlying chronic kidney disease. 22. Metabolic acidosis. 23. Hypertensive diabetic chronic kidney disease stage 3 without proteinuria. 24. Monoclonal gammopathy of unknown significance. 25. Severe mitral, tricuspid regurgitation with cardiomyopathy, left ventricular ejection fraction of 35% to 40%. 26. Left foot diabetic foot ulceration and gangrene. 27. Congestive heart failure with reduced ejection fraction. 28. Nonhealing left foot diabetic ulceration. 29. Sepsis with left foot cellulitis and diabetic foot ulceration with Pseudomonas secondary to Pseudomonas aeruginosa and Streptococcus group B beta hemolytic Streptococcus. 30. Questionable and possible delirium versus encephalopathy. 31. Gait dysfunction. 32. Deconditioning. 33. Constipation. 34. Hypovitaminosis D. 35. Prostatic hypertrophy. 36. Hyperlipidemia. 37. Hyperuricemia. 38. Hyperglycemia. 39. Uncontrolled diabetes mellitus with hyperglycemia. 40. Gait dysfunction. 41. History of poor compliance and noncompliance. 1. Left foot Pseudomonas aeruginosa and group B beta hemolytic strep, left foot diabetic foot ulceration and cellulitis. 2. Sepsis secondary to Pseudomonas aeruginosa and group B beta hemolytic strep, left diabetic foot ulceration and cellulitis. 3. Hypertension. 4. Tachycardia. 5. Anemia. 6. Status post packed red blood cell transfusion one unit. 7. Leukocytosis with granulocytosis. 8. Elevated erythrocyte sedimentation rate of 122. 9. Iron-deficiency. 10. Acute kidney injury with underlying chronic kidney disease, stage IV. 11. Uncontrolled diabetes mellitus with hyperglycemia and elevated hemoglobin A1c of 8.6 and elevated fructose, a mean of 329. 12. Transient lactic acidosis. 13. Transaminitis. 14. Hypertriglyceridemia. 15. Elevated C-reactive protein of greater than 15. 16. Gait dysfunction. 17. Deconditioning. 18. Metabolic acidosis. 19. 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 20. Severe mitral, tricuspid regurgitation and systolic congestive heart failure. 21. Left foot cellulitis and left foot diabetic ulceration. 22. Left diabetic foot ulceration and possible gangrene or pre-gangrenous condition of the left foot toes. 23. Left foot second digit amputation. 24. Peripheral vascular disease. 25. Left foot second toe amputation with cyanosis and mummification of the toes and forefoot of the left foot. 26. Severe tibial disease of the lower extremity. 27. Peripheral vascular disease. 28. Anemia of chronic disease. 29. Bilateral popliteal trifurcation and tibial disease. 30. Left anterior hemiblock. 1. Left foot Pseudomonas aeruginosa and group B Streptococcus beta hemolytic left foot cellulitis and diabetic foot ulcer. 2. Severe peripheral vascular disease of the lower extremity. 3. Normocytic anemia with decreasing hemoglobin. 4. Leukocytosis with granulocytosis. 5. Uncontrolled diabetes mellitus with hyperglycemia. 6. Acute kidney injury with underlying chronic kidney disease stage III/IV. 7. Transaminitis. 8. Probably anemia of chronic kidney disease. 9. Acute kidney injury with underlying chronic kidney disease. 10. Metabolic acidosis. 11. Hypertensive diabetic chronic kidney disease. 12. [id number] mitral regurgitation and iwmfzhwx-zf-enphvy tricuspid regurgitation. 13. Dilated cardiomyopathy with ejection fraction of 35%. 14. Sepsis. 15. Hypertension. 16. Gait dysfunction. 17. Deconditioning. 18. Bilateral lower extremity peripheral vascular disease. 19. History of poor compliance and noncompliance. 20. History of hyperuricemia and gout. 1. Left foot cellulitis versus gangrene versus pregangrenous state. 2. Sepsis. 3. Tachycardia. 4. Transient episodic hypotension. 5. Leukocytosis with granulocytosis 6. Elevated erythrocyte sedimentation rate of 122. 7. Normocytic anemia. 8. Chronic kidney disease stage 4 with acute kidney injury. 9. Uncontrolled noninsulin-requiring diabetes mellitus with hyperglycemia and hemoglobin A1c of 8.6. 10. Possible iron-deficiency. 11. Hypertriglyceridemia. 12. Elevated C-reactive protein of greater than 15. 13. Transient lactic acidosis. 14. Transaminitis. 15. Deconditioning. 16. Gait dysfunction. 17. Anemia with decreasing hemoglobin and hematocrit. 18. Metabolic acidosis. 19. Diabetic hypertensive chronic kidney disease. 20. Chronic kidney disease stage 3 without proteinuria. 21. Severe mitral and tricuspid regurgitation. 22. Systolic congestive heart failure. 23. Dilated ischemic cardiomyopathy, etiology undetermined. 1. Left foot cellulitis with diabetic foot disease and possible abscess versus possible osteomyelitis. 2. History of left foot second toe amputation. 3. Hypertension. 4. Tachycardia. 5. Fever. 6. Poor compliance and noncompliance. 7. Leukocytosis with granulocytosis. 8. Normocytic anemia. 9. Elevated erythrocyte sedimentation rate of 122. 10. Chronic kidney disease, stage IV with acute kidney injury. 11. Transient lactic acidosis. 12. History of hyperuricemia. 13. Hypertriglyceridemia. 14. Aortic calcification. 15. Bilateral lower extremity popliteal trifurcation and tibial peripheral vascular disease. 16. Left foot first metatarsophalangeal joint bony destruction and sclerosis, chronic osteomyelitis. 17. 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 18. 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 19. Sinus tachycardia with left anterior hemiblock. 20. Deconditioning. 21. History of poor compliance. 22. Chronic dilated ischemic cardiomyopathy with ejection fraction of . 23. History of hypertension. 24. History of heart failure with reduced ejection fraction of 35%. 25. Pulmonary hypertension with right ventricular systolic pressure of 40 mmHg. 26. Left ventricular global hypokinesis and moderately impaired left ventricular systolic function. 27. Mild aortic regurgitation. 28. Moderate to severe mitral regurgitation. 29. Moderate tricuspid regurgitation. 30. History of constipation. 31. Hypovitaminosis D. 32. History of iron-deficiency anemia. 33. Prostatic hypertrophy. 34. Insulin-requiring diabetes mellitus. 35. Hyperlipidemia. 36. History of peripheral vascular disease. 37. Hyperuricemia. 1. Left foot diabetic foot ulceration versus left foot abscess versus left foot toe osteomyelitis. 2. Tachycardia. 3. Leukocytosis with granulocytosis. 4. Questionable systemic inflammatory response syndrome. 5. Uncontrolled diabetes mellitus with hyperglycemia. 6. Chronic kidney disease stage IV. 7. Mild transaminitis. 8. History of hypertension. 9. Hyperlipidemia. 10. History of prostatic hypertrophy. 11. History of iron-deficiency anemia. 12. History of hypovitaminosis D. 13. History of dilated cardiomyopathy. 14. History of pulmonary hypertension. 15. History of moderate tricuspid regurgitation and mitral regurgitation. 16. Hyperuricemia. PLAN: At this time, the patient is waiting for Vascular Surgery intervention regarding left BKA versus left transmetatarsal amputation. CURRENT MEDICATIONS: Colace 100 mg three times a day, Dakin solution to the left foot. Ferrous gluconate 324 mg three times a day, Flomax 0.4 mg daily, heparin 5000 subcu every 8 hours, Humalog medium dose sliding scale coverage before meals, NPH 17 units with breakfast and dinner, meropenem 500 mg IV to XII MiraLax 17 g twice a day, Nephro-Sumit 1 tablet daily, nystatin powder to the affected area, Pepcid 20 mg twice a day for six doses, midodrine 5 mg three times a day, Protonix 40 mg daily, Tylenol 650 mg p.o. suppository every 6 hours p.r.n. for fever, Zofran 4 mg IV every 4 hours p.r.n. incentive spirometry. The patient is n.p.o. today for OR. The patient will be followed up postoperatively closely, repeat labs have been ordered for the morning. The patient's lab has been ordered for the morning. The patient will be followed very closely postoperatively. Once the patient is stabilized and cleared by Surgery from surgical standpoint and postoperative care, the patient will be considered for discharge to acute rehab versus subacute rehab whichever and wherever the patient's family chooses to be. Dictated and electronically signed, not read. Niranjan Ling MD [facility]
--- NOTE | 2018-12-10 12:55 | PCM.SURG1 ---
Surgeon's Initial Post Op Note - Surgeon's Notes Surgeon: Dr. Sosa Plasterer Helper: Dr. Hale PGY4, Dr. Strickland PGY3 Type of Anesthesia: General LMA, Local (20cc Exparel) Pre-Operative Diagnosis: L chronic foot wound Operative Findings: see dictation Post-Operative Diagnosis: same Operation Performed: Left BKA Specimen/Specimens Removed: left foot Estimated Blood Loss: EBL {In ML}: 50 Blood Products Given: N/A Drains Used: No Drains Post-Op Condition: Good Date of Surgery/Procedure: 12/10/18 Time of Surgery/Procedure: 12:54
[2018-12-10] MEDS ORDERED: Lactated Ringer's 1,000 ML IV SCH (13:00)
[2018-12-10] MEDS: HYDROmorphone 0.5 mg/0.5 ml ISec IVP PRN ×2 (13:15→13:30)
--- NOTE | 2018-12-10 13:20 | PN ---
DATE: 12/10/2018 SUBJECTIVE: The patient is seen earlier today in no acute distress, nontoxic. PHYSICAL EXAMINATION: VITAL SIGNS: On exam, temperature is 98, blood pressure is 130/60, respiratory of 18. HEENT: Unremarkable. NECK: Supple. HEART: Normal S1, S2. LUNGS: Have decreased breath sounds. ABDOMEN: Soft. LABORATORY DATA: Reveals a white count of 10,000, hemoglobin of 11, platelets of 454. BUN of 67, creatinine of 2.4. ASSESSMENT AND PLAN: This is a 73-year-old male with left second toe and second metatarsal amputation postprocedure #17, Charcot's foot with Proteus and Pseudomonas, on meropenem. The patient is for possible OR today. TMA or BKA unclear. The patient had a chest x-ray yesterday which was not negative for pulmonary disease. We will follow with you. Tai Landaverde MD
[2018-12-10] MEDS ORDERED: HYDROmorphone 0.5 mg/0.5 ml ISec ONE ×2 (13:26→13:40)
--- NOTE | 2018-12-10 13:45 | PN ---
DATE: 12/10/2018 CARDIOLOGY FOLLOWUP SUBJECTIVE: The patient's infection in his lower extremities would likely need surgical intervention. He denies chest pain. PHYSICAL EXAMINATION: VITAL SIGNS: Stable. NECK: Negative JVD. LUNGS: Without rales. HEART: S1, S2. EXTREMITIES: Without edema. ASSESSMENT: 1. Persistent infection in the lower extremities. 2. Peripheral vascular disease. 3. Diabetes mellitus. 4. Dilated cardiomyopathy. 5. Coronary artery disease. 6. Anemia. PLAN: Given these findings, the patient OR for surgical intervention. Milton Murrell MD
[2018-12-10 13:49] LABS: INR 1.12; PARTIAL THROMBOPLASTIN TIME 30.3 Seconds (26.9-38.3); PROTHROMBIN TIME 12.6 SECONDS (9.4-12.5)
--- NOTE | 2018-12-10 15:23 | CP.PCM.PN ---
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 stable renal fxn Hypertension control with meds as ordered. Maintain hemodynamics stable. Avoid hypotension. Patient not on ACEI/ARB due to EMIL and hyperkalemia tendency. consider to add once stable. Monitor Input/Output, daily weights and renal function with basic metabolic panel continue with iron and MVI. PRBC as needed. dose of aransep 40 mcg weekly held as Hb >10 his K/L ratio remains high at 3.6. pending hematology eval vit d can be changed to once a month as last level 41 continue with flomax can give IVF as BUN/cr higher plan for TMA as per podiatry/surgery Dose meds/antibiotics for reduced GFR. Avoid fleets enema/magnesium based laxatives. Avoid nephrotoxins/NSAIDs/ iodinated contrast (unless needed emergently) Glycemic control Further work up/management as per primary team Thanks for allowing me to participate in care of your patient. Will follow patient with you. Please call if any Qs. had d/w team and son Dr Anjum Padron Office: [phone] Chief Complaint; Foot ulcer Reason for consult: Acute Kidney Injury HPI: Pt is a 73 M with hx of diabetes Mellitus (30 years), hypertension (years) PVD, Gout CKD 3 with baseline cr 1.8-1.9 presented with complaints of foot ulcer, being managed for cellulitis. seen for EMIL and pt also with PVD Denies OTC/herbal meds or NSAIDs. No recent iodinated contrast exposure. Noted obvious episodes of low BP. pt still not aware about kidney disease in past ROS: noted overnight events pt seen in PACU. not much communicative. s/p left BKA 12/10/18 All other negative except as mentioned in HPI. per son, pt refused to go for outpt follow ups Physical Examination: General Appearance: Comfortable, in no acute respiratory distress, co-operative . Vitals reviewed and noted as below Head; Atraumatic, normocephalic ENT: no ulcers no thrush. Tongue is midline. Oropharynx: no rash or ulcers. EYES: Pupils are equal, round and reactive to light accommodation. Eye muscles and extra-ocular movement intact. Sclera is anicteric. Neck; supple no lymphadenopathy, no thyromegaly or bruit Lungs: Normal respiratory rate/effort. Breath sounds bilateral improved Heart: Incr rate. s1s2 normal. No rub or gallop. Extremities: no edema. No varicose veins. left BKA in dressing Neurological: Patient is confused. No focal deficit. Strength bilateral appropriate and equal Skin: Warm and dry. Normal turgor. No rash. Palpitation: Normal elasticity for age Abdomen: Abdomen is soft. Bowel sounds +. There is no abdominal tenderness, no guarding/rigidity no organomegaly Psych: lack insight and has normal affect/mood MSK: no joint tenderness or swelling. Digits and nails normal, no deformity : kidney or bladder not palpable. Labs/imaging reviewed. Past medical history, past surgical history, family history, social history, allergy reviewed and noted as below Family hx: no hx of CKD. Rest non-contributory Phos 3.5 TSAT 13% Vit D 41 PTH 49 LDL 103 kappa/lambda 3.4 uric acid 7.5 renal cyst left side Objective - Vital Signs/Intake and Output Vital Signs (last 24 hours): Temp Pulse Resp BP Pulse Ox 98.2 F 106 H 16 130/74 98 12/10/18 14:05 12/10/18 14:05 12/10/18 14:05 12/10/18 14:05 12/10/18 14:05 Intake and Output: 12/10/18 12/10/18 06:59 18:59 Intake Total 480 0 Output Total 900 Balance -420 0 - Medications Medications: Current Medications Acetaminophen (Tylenol 325mg Tab) 650 mg PO Q6H PRN PRN Reason: Pain, Mild (1-3) Last Admin: 12/10/18 00:36 Dose: 650 mg Acetaminophen (Tylenol 325mg Tab) 650 mg PO Q6 PRN PRN Reason: TEMP>=99.5F Acetaminophen (Tylenol 650 Mg Supp) 650 mg RC Q6H PRN PRN Reason: TEMP>=99.5F Dextrose (Dextrose 50% Inj) 0 ml IV STAT PRN; Protocol PRN Reason: Hypoglycemia Protocol Docusate Sodium (Colace) 100 mg PO TID [facility] Last Admin: 12/10/18 11:09 Dose: Not Given Famotidine (Pepcid) 20 mg PO 1000,2200 [facility] Stop: 12/11/18 10:01 Last Admin: 12/10/18 11:10 Dose: Not Given Ferrous Gluconate (Fergon) 324 mg PO TID [facility] Last Admin: 12/10/18 11:10 Dose: Not Given Heparin Sodium (Porcine) (Heparin) 5,000 units SC Q8 [facility]; Protocol Last Admin: 12/10/18 08:30 Dose: Not Given Meropenem/Sodium Chloride (Merrem Iv 500 Mg/Ns 50 Ml) 500 mg in 50 mls @ 100 mls/hr IVPB Q12 [facility]; Protocol Last Admin: 12/10/18 11:10 Dose: Not Given Dextrose (Dextrose 5% In Water 1000 Ml) 1,000 mls @ 0 mls/hr IV .Q0M PRN; Protocol PRN Reason: Hypoglycemia Protocol Insulin Human Lispro (Humalog Med) 0 units SC [facility]; Protocol Last Admin: 12/10/18 08:08 Dose: Not Given Insulin Human NPH (Humulin N) 17 units SC [facility] Last Admin: 12/10/18 08:09 Dose: Not Given Metoclopramide HCl (Reglan) 10 mg IV ONCE PRN PRN Reason: Nausea/Vomiting Midodrine (Proamatine) 5 mg PO TID [facility] Last Admin: 12/10/18 11:10 Dose: Not Given Nystatin (Nystop Topical Powder) 0 gm TOP BID [facility] Last Admin: 12/10/18 11:10 Dose: Not Given Ondansetron HCl (Zofran Inj) 4 mg IVP Q4H PRN PRN Reason: Nausea/Vomiting Oxycodone/Acetaminophen (Percocet 5/325 Mg Tab) 1 tab PO Q6H PRN PRN Reason: Pain, moderate (4-7) Stop: 12/13/18 12:57 Pantoprazole Sodium (Protonix Ec Tab) 40 mg PO 0600 [facility] Last Admin: 12/10/18 08:09 Dose: Not Given Polyethylene Glycol (Miralax) 17 gm PO BID [facility] Last Admin: 12/10/18 11:10 Dose: Not Given Sodium Hypochlorite (Dakins Solution 0.25%) 20 ml TOP DAILY [facility] Last Admin: 12/10/18 11:10 Dose: Not Given Tamsulosin HCl (Flomax) 0.4 mg PO DAILY [facility] Last Admin: 12/10/18 11:10 Dose: Not Given Vitamin B Complex/Vit C/Folic Acid (Nephro-Sumit) 1 tab PO 0800 [facility] Last Admin: 12/10/18 08:09 Dose: Not Given - Labs Labs: 12/10/18 07:00 12/10/18 07:00 PT 12.6 SECONDS (9.4-12.5) H 12/10/18 13:10 INR 1.12 12/10/18 13:10 APTT 30.3 Seconds (26.9-38.3) 12/10/18 13:10
--- NOTE | 2018-12-10 15:49 | CP.PCM.PCO ---
Physician Communication Note - Physician Communication Note Physician Communication Note: s/p left BKA,PT eval non-weight bearing pending
[2018-12-10] MEDS: Oxycodone/Acetaminophen 5/325 mg Tab PO PRN (15:52)
[2018-12-10] MEDS: Dextrose 5%/0.45% NS 1,000 ML IV SCH (17:53)
[2018-12-11] MEDS: Dextrose 5%/0.45% NS 1,000 ML IV SCH (05:35)
[2018-12-11] MEDS: Oxycodone/Acetaminophen 5/325 mg Tab PO PRN ×3 (05:35→19:13)
[2018-12-11] MEDS: Pantoprazole 40 mg EC Tab PO SCH (05:35)
[2018-12-11 07:59] LABS: BASO # 0.01 K/mm3 (0.0-2.0); BASO % 0.1 % (0.0-3.0); EOS # 0.1 (0.0-0.7); EOS % 1.1 % (1.5-5.0); HEMOGLOBIN 9.9 g/dL (14.0-18.0); LYMPH # 1.2 (1.2-3.4); LYMPH % 11.4 % (22.0-35.0); MEAN CELL VOLUME 95.1 fl (80.0-105.0); MEAN CORPUSCULAR HEMOGLOBIN 30.2 pg (25.0-35.0); MEAN CORPUSCULAR HGB CONC 31.7 g/dl (31.0-37.0); MEAN PLATELET VOLUME 9.6 fl (7.0-11.0); MONO # 0.5 (0.1-0.6); MONO % 4.7 % (1.0-6.0); RBC 3.28 10^6/uL (3.5-6.1); RED CELL DISTRIBUTION WIDTH 16.6 % (11.5-14.5); WHITE BLOOD COUNT 10.2 10^3/uL (4.5-11.0)
--- NOTE | 2018-12-11 08:02 | CP.PCM.PN ---
<Samuel Hale - Last Filed: 12/11/18 07:58> Subjective - Date & Time of Evaluation Date of Evaluation: 12/11/18 Time of Evaluation: 06:50 - Subjective Subjective: General Surgery Pt seen and examined. Reporting L LE pain, medication helping. Was restless overnight and was removed his knee immobilizer. Objective - Vital Signs/Intake and Output Vital Signs (last 24 hours): Temp Pulse Resp BP Pulse Ox 98 F 106 H 18 100/63 98 12/10/18 22:00 12/10/18 22:00 12/10/18 22:00 12/10/18 22:00 12/10/18 22:00 Intake and Output: 12/11/18 12/11/18 06:59 18:59 Intake Total 1240 Balance 1240 - Medications Medications: Current Medications Acetaminophen (Tylenol 325mg Tab) 650 mg PO Q6H PRN PRN Reason: Pain, Mild (1-3) Last Admin: 12/10/18 00:36 Dose: 650 mg Acetaminophen (Tylenol 325mg Tab) 650 mg PO Q6 PRN PRN Reason: TEMP>=99.5F Acetaminophen (Tylenol 650 Mg Supp) 650 mg RC Q6H PRN PRN Reason: TEMP>=99.5F Dextrose (Dextrose 50% Inj) 0 ml IV STAT PRN; Protocol PRN Reason: Hypoglycemia Protocol Docusate Sodium (Colace) 100 mg PO TID [facility] Last Admin: 12/10/18 18:00 Dose: Not Given Famotidine (Pepcid) 20 mg PO 1000,2200 [facility] Stop: 12/11/18 10:01 Last Admin: 12/10/18 22:17 Dose: 20 mg Ferrous Gluconate (Fergon) 324 mg PO TID [facility] Last Admin: 12/10/18 18:00 Dose: Not Given Heparin Sodium (Porcine) (Heparin) 5,000 units SC Q8 [facility]; Protocol Last Admin: 12/10/18 08:30 Dose: Not Given Meropenem/Sodium Chloride (Merrem Iv 500 Mg/Ns 50 Ml) 500 mg in 50 mls @ 100 mls/hr IVPB Q12 [facility]; Protocol Last Admin: 12/10/18 22:17 Dose: 100 mls/hr Dextrose (Dextrose 5% In Water 1000 Ml) 1,000 mls @ 0 mls/hr IV .Q0M PRN; Protocol PRN Reason: Hypoglycemia Protocol Dextrose/Sodium Chloride (Dextrose 5%/0.45% Ns 1000 Ml) 1,000 mls @ 83 mls/hr IV .Q12H3M [facility] Last Admin: 12/11/18 05:35 Dose: 83 mls/hr Insulin Human Lispro (Humalog Med) 0 units SC AC [facility]; Protocol Last Admin: 12/10/18 17:45 Dose: Not Given Insulin Human NPH (Humulin N) 17 units SC ACBD [facility] Last Admin: 12/10/18 17:46 Dose: Not Given Metoclopramide HCl (Reglan) 10 mg IV ONCE PRN PRN Reason: Nausea/Vomiting Midodrine (Proamatine) 5 mg PO TID [facility] Last Admin: 12/10/18 17:47 Dose: Not Given Nystatin (Nystop Topical Powder) 0 gm TOP BID [facility] Last Admin: 12/10/18 17:46 Dose: Not Given Ondansetron HCl (Zofran Inj) 4 mg IVP Q4H PRN PRN Reason: Nausea/Vomiting Oxycodone/Acetaminophen (Percocet 5/325 Mg Tab) 1 tab PO Q6H PRN PRN Reason: Pain, moderate (4-7) Stop: 12/13/18 12:57 Last Admin: 12/11/18 05:35 Dose: 1 tab Pantoprazole Sodium (Protonix Ec Tab) 40 mg PO 0600 [facility] Last Admin: 12/11/18 05:35 Dose: 40 mg Polyethylene Glycol (Miralax) 17 gm PO BID [facility] Last Admin: 12/10/18 17:46 Dose: Not Given Sodium Hypochlorite (Dakins Solution 0.25%) 20 ml TOP DAILY [facility] Last Admin: 12/10/18 11:10 Dose: Not Given Tamsulosin HCl (Flomax) 0.4 mg PO DAILY [facility] Last Admin: 12/10/18 11:10 Dose: Not Given Vitamin B Complex/Vit C/Folic Acid (Nephro-Sumit) 1 tab PO 0800 [facility] Last Admin: 12/10/18 08:09 Dose: Not Given - Labs Labs: 12/10/18 07:00 12/10/18 07:00 PT 12.6 SECONDS (9.4-12.5) H 12/10/18 13:10 INR 1.12 12/10/18 13:10 APTT 30.3 Seconds (26.9-38.3) 12/10/18 13:10 - Constitutional Appears: Non-toxic, No Acute Distress - Head Exam Head Exam: ATRAUMATIC, NORMOCEPHALIC - Respiratory Exam Respiratory Exam: NORMAL BREATHING PATTERN. absent: Respiratory Distress - GI/Abdominal Exam GI & Abdominal Exam: Soft. absent: Distended, Tenderness - Extremities Exam Additional comments: LLE tenderness, Knee immobilizer in place, Dressing C/D/I, no strikethrough - Neurological Exam Neurological Exam: Alert, Awake - Skin Skin Exam: Dry, Warm Assessment and Plan - Assessment and Plan (Free Text) Assessment: 73M POD#1 s/p L BKA 2/2 chronic L foot wound and osteomyelitis Plan: Maintain Knee immobilizer. Pain control PRN Keep dressing in place D/W Dr. Ian Hale PGY4 <Kain Sosa - Last Filed: 12/12/18 08:58> Objective - Vital Signs/Intake and Output Vital Signs (last 24 hours): Temp Pulse Resp BP Pulse Ox 98.1 F 100 H 18 108/69 98 12/11/18 22:19 12/11/18 22:19 12/11/18 22:19 12/11/18 22:19 12/11/18 22:19 - Medications Medications: Current Medications Acetaminophen (Tylenol 325mg Tab) 650 mg PO Q6 PRN PRN Reason: TEMP>=99.5F Acetaminophen (Tylenol 650 Mg Supp) 650 mg RC Q6H PRN PRN Reason: TEMP>=99.5F Dextrose (Dextrose 50% Inj) 0 ml IV STAT PRN; Protocol PRN Reason: Hypoglycemia Protocol Docusate Sodium (Colace) 100 mg PO TID [facility] Last Admin: 12/11/18 19:13 Dose: 100 mg Ferrous Gluconate (Fergon) 324 mg PO TID [facility] Last Admin: 12/11/18 19:13 Dose: 324 mg Heparin Sodium (Porcine) (Heparin) 5,000 units SC Q8 [facility]; Protocol Last Admin: 12/10/18 08:30 Dose: Not Given Dextrose (Dextrose 5% In Water 1000 Ml) 1,000 mls @ 0 mls/hr IV .Q0M PRN; Protocol PRN Reason: Hypoglycemia Protocol Sodium Chloride (Sodium Chloride 0.9%) 1,000 mls @ 75 mls/hr IV .[id number] [facility] Stop: 12/13/18 10:31 Last Admin: 12/12/18 04:24 Dose: 75 mls/hr Insulin Human Lispro (Humalog Med) 0 units SC AC [facility]; Protocol Last Admin: 12/12/18 08:35 Dose: Not Given Insulin Human NPH (Humulin N) 17 units SC ACBD [facility] Last Admin: 12/12/18 08:38 Dose: 17 unit Metoclopramide HCl (Reglan) 10 mg IV ONCE PRN PRN Reason: Nausea/Vomiting Midodrine (Proamatine) 5 mg PO TID [facility] Last Admin: 12/11/18 19:13 Dose: 5 mg Nystatin (Nystop Topical Powder) 0 gm TOP BID [facility] Last Admin: 12/11/18 17:13 Dose: 1 appl Ondansetron HCl (Zofran Inj) 4 mg IVP Q4H PRN PRN Reason: Nausea/Vomiting Oxycodone/Acetaminophen (Percocet 5/325 Mg Tab) 1 tab PO Q6H PRN PRN Reason: Pain, moderate (4-7) Stop: 12/13/18 12:57 Last Admin: 12/12/18 01:17 Dose: 1 tab Pantoprazole Sodium (Protonix Ec Tab) 40 mg PO 0600 [facility] Last Admin: 12/12/18 05:25 Dose: 40 mg Polyethylene Glycol (Miralax) 17 gm PO BID [facility] Last Admin: 12/11/18 19:10 Dose: Not Given Tamsulosin HCl (Flomax) 0.4 mg PO DAILY [facility] Last Admin: 12/11/18 09:25 Dose: 0.4 mg Vitamin B Complex/Vit C/Folic Acid (Nephro-Sumit) 1 tab PO 0800 [facility] Last Admin: 12/12/18 08:36 Dose: 1 tab - Labs Labs: 12/12/18 07:00 12/12/18 07:00 PT 12.6 SECONDS (9.4-12.5) H 12/10/18 13:10 INR 1.12 12/10/18 13:10 APTT 30.3 Seconds (26.9-38.3) 12/10/18 13:10 Assessment and Plan - Assessment and Plan (Free Text) Plan: Patient was seen, evaluated and examined by me at the bedside. I agree with assessment and plan as stated in the resident's note.
--- NOTE | 2018-12-11 08:06 | CP.PCM.PN ---
Subjective - Date & Time of Evaluation Date of Evaluation: 12/11/18 Time of Evaluation: 07:15 - Subjective Subjective: (covering for Dr. Ling) Patient is seen this morning. He is lying in bed 572 bed 1 s/p left below the knee amputation. He denies pain. Objective - Vital Signs/Intake and Output Vital Signs (last 24 hours): Temp Pulse Resp BP Pulse Ox 98 F 106 H 18 100/63 98 12/10/18 22:00 12/10/18 22:00 12/10/18 22:00 12/10/18 22:00 12/10/18 22:00 Intake and Output: 12/11/18 12/11/18 06:59 18:59 Intake Total 1240 Balance 1240 - Medications Medications: Current Medications Acetaminophen (Tylenol 325mg Tab) 650 mg PO Q6H PRN PRN Reason: Pain, Mild (1-3) Last Admin: 12/10/18 00:36 Dose: 650 mg Acetaminophen (Tylenol 325mg Tab) 650 mg PO Q6 PRN PRN Reason: TEMP>=99.5F Acetaminophen (Tylenol 650 Mg Supp) 650 mg RC Q6H PRN PRN Reason: TEMP>=99.5F Dextrose (Dextrose 50% Inj) 0 ml IV STAT PRN; Protocol PRN Reason: Hypoglycemia Protocol Docusate Sodium (Colace) 100 mg PO TID [facility] Last Admin: 12/10/18 18:00 Dose: Not Given Famotidine (Pepcid) 20 mg PO 1000,2200 [facility] Stop: 12/11/18 10:01 Last Admin: 12/10/18 22:17 Dose: 20 mg Ferrous Gluconate (Fergon) 324 mg PO TID [facility] Last Admin: 12/10/18 18:00 Dose: Not Given Heparin Sodium (Porcine) (Heparin) 5,000 units SC Q8 [facility]; Protocol Last Admin: 12/10/18 08:30 Dose: Not Given Meropenem/Sodium Chloride (Merrem Iv 500 Mg/Ns 50 Ml) 500 mg in 50 mls @ 100 mls/hr IVPB Q12 [facility]; Protocol Last Admin: 12/10/18 22:17 Dose: 100 mls/hr Dextrose (Dextrose 5% In Water 1000 Ml) 1,000 mls @ 0 mls/hr IV .Q0M PRN; Protocol PRN Reason: Hypoglycemia Protocol Dextrose/Sodium Chloride (Dextrose 5%/0.45% Ns 1000 Ml) 1,000 mls @ 83 mls/hr IV .Q12H3M [facility] Last Admin: 12/11/18 05:35 Dose: 83 mls/hr Insulin Human Lispro (Humalog Med) 0 units SC AC [facility]; Protocol Last Admin: 12/10/18 17:45 Dose: Not Given Insulin Human NPH (Humulin N) 17 units SC ACBD [facility] Last Admin: 12/10/18 17:46 Dose: Not Given Metoclopramide HCl (Reglan) 10 mg IV ONCE PRN PRN Reason: Nausea/Vomiting Midodrine (Proamatine) 5 mg PO TID [facility] Last Admin: 12/10/18 17:47 Dose: Not Given Nystatin (Nystop Topical Powder) 0 gm TOP BID [facility] Last Admin: 12/10/18 17:46 Dose: Not Given Ondansetron HCl (Zofran Inj) 4 mg IVP Q4H PRN PRN Reason: Nausea/Vomiting Oxycodone/Acetaminophen (Percocet 5/325 Mg Tab) 1 tab PO Q6H PRN PRN Reason: Pain, moderate (4-7) Stop: 12/13/18 12:57 Last Admin: 12/11/18 05:35 Dose: 1 tab Pantoprazole Sodium (Protonix Ec Tab) 40 mg PO 0600 [facility] Last Admin: 12/11/18 05:35 Dose: 40 mg Polyethylene Glycol (Miralax) 17 gm PO BID [facility] Last Admin: 12/10/18 17:46 Dose: Not Given Sodium Hypochlorite (Dakins Solution 0.25%) 20 ml TOP DAILY [facility] Last Admin: 12/10/18 11:10 Dose: Not Given Tamsulosin HCl (Flomax) 0.4 mg PO DAILY [facility] Last Admin: 12/10/18 11:10 Dose: Not Given Vitamin B Complex/Vit C/Folic Acid (Nephro-Sumit) 1 tab PO 0800 [facility] Last Admin: 12/10/18 08:09 Dose: Not Given - Labs Labs: 12/10/18 07:00 12/10/18 07:00 PT 12.6 SECONDS (9.4-12.5) H 12/10/18 13:10 INR 1.12 12/10/18 13:10 APTT 30.3 Seconds (26.9-38.3) 12/10/18 13:10 - Constitutional Appears: No Acute Distress - Head Exam Head Exam: ATRAUMATIC, NORMOCEPHALIC - Respiratory Exam Respiratory Exam: Clear to Ausculation Bilateral, NORMAL BREATHING PATTERN - Cardiovascular Exam Cardiovascular Exam: REGULAR RHYTHM, +S1, +S2 - GI/Abdominal Exam GI & Abdominal Exam: Soft, Normal Bowel Sounds. absent: Tenderness - Extremities Exam Additional comments: s/p Left BKA - Neurological Exam Neurological Exam: Alert, Awake Assessment and Plan - Assessment and Plan (Free Text) Assessment: s/p left below the knee amputation Proteus Mirabilis, Pseudomonas and Beta-hemolytic Group B streptococcus Left great toe osteomyelitis Severe PVD Diabetes mellitus - uncontrolled Plan: Patient is status post left below the knee amputation. continue Percocet as needed for pain continue insulin for diabetes social studies department chair working with family to find a facility for rehab
[2018-12-11 08:12] LABS: ALBUMIN 3.3 g/dL (3.0-4.8); CALCIUM 8.6 mg/dL (8.4-10.5)
[2018-12-11] MEDS: Multivitamin Vitamin B Complex (Nephro-Vite) Tab PO SCH (08:29)
[2018-12-11] MEDS: Insulin Lispro (humaLOG) MEDIUM Coverage SC SCH ×3 (08:29→16:45)
[2018-12-11] MEDS: Insulin Human NPH 1 UNITS/0.01 ML SC SCH ×2 (08:31→16:45)
[2018-12-11] MEDS: POLYETHYLENE GLYCOL 3350 17 GM/Dose PACKET PO SCH ×2 (09:20→19:10)
[2018-12-11] MEDS: Nystatin 100,000 Units/gm Topical Pow(15 gm) TOP SCH ×2 (09:25→17:13)
[2018-12-11] MEDS: MEROPENEM 500 MG in NS 500 MG/50 ML BAG IVPB SCH ×2 (09:25→21:16)
[2018-12-11] MEDS: Dakin's Topical 0.25%-Half Strength (480 ml) TOP SCH (10:48)
--- NOTE | 2018-12-11 12:38 | CP.PCM.PN ---
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 stable renal fxn Hypertension control with meds as ordered. Maintain hemodynamics stable. Avoid hypotension. Patient not on ACEI/ARB due to EMIL and hyperkalemia tendency. consider to add once stable. Monitor Input/Output, daily weights and renal function with basic metabolic panel continue with iron and MVI. PRBC as needed. dose of aransep 40 mcg weekly held as Hb >10 his K/L ratio remains high at 3.6. pending hematology eval vit d can be changed to once a month as last level 41 continue with flomax continue with IVF as NS. d/c d5 / ns plan for TMA as per podiatry/surgery Dose meds/antibiotics for reduced GFR. Avoid fleets enema/magnesium based laxatives. Avoid nephrotoxins/NSAIDs/ iodinated contrast (unless needed emergently) Glycemic control Further work up/management as per primary team Thanks for allowing me to participate in care of your patient. Will follow patient with you. Please call if any Qs. had d/w team and son Dr Anjum Padron Office: [phone] Chief Complaint; Foot ulcer Reason for consult: Acute Kidney Injury HPI: Pt is a 73 M with hx of diabetes Mellitus (30 years), hypertension (years) PVD, Gout CKD 3 with baseline cr 1.8-1.9 presented with complaints of foot ulcer, being managed for cellulitis. seen for EMIL and pt also with PVD Denies OTC/herbal meds or NSAIDs. No recent iodinated contrast exposure. Noted obvious episodes of low BP. 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 feels better denies CP/SOB All other negative except as mentioned in HPI. per son, pt refused to go for outpt follow ups Physical Examination: General Appearance: Comfortable, in no acute respiratory distress, co-operative . Vitals reviewed and noted as below Head; Atraumatic, normocephalic ENT: no ulcers no thrush. Tongue is midline. Oropharynx: no rash or ulcers. EYES: Pupils are equal, round and reactive to light accommodation. Eye muscles and extra-ocular movement intact. Sclera is anicteric. Neck; supple no lymphadenopathy, no thyromegaly or bruit Lungs: Normal respiratory rate/effort. Breath sounds bilateral improved Heart: Incr rate. s1s2 normal. No rub or gallop. Extremities: no edema. No varicose veins. left BKA in dressing Neurological: Patient is alert awake. No focal deficit. Strength bilateral appropriate and equal Skin: Warm and dry. Normal turgor. No rash. Palpitation: Normal elasticity for age Abdomen: Abdomen is soft. Bowel sounds +. There is no abdominal tenderness, no guarding/rigidity no organomegaly Psych: lack insight and has normal affect/mood MSK: no joint tenderness or swelling. Digits and nails normal, no deformity : kidney or bladder not palpable. Labs/imaging reviewed. Past medical history, past surgical history, family history, social history, allergy reviewed and noted as below Family hx: no hx of CKD. Rest non-contributory Phos 3.5 TSAT 13% Vit D 41 PTH 49 LDL 103 kappa/lambda 3.4 uric acid 7.5 renal cyst left side Objective - Vital Signs/Intake and Output Vital Signs (last 24 hours): Temp Pulse Resp BP Pulse Ox 98 F 106 H 18 100/63 98 12/10/18 22:00 12/10/18 22:00 12/10/18 22:00 12/10/18 22:00 12/10/18 22:00 Intake and Output: 12/11/18 12/11/18 06:59 18:59 Intake Total 1240 Balance 1240 - Medications Medications: Current Medications Acetaminophen (Tylenol 325mg Tab) 650 mg PO Q6H PRN PRN Reason: Pain, Mild (1-3) Last Admin: 12/10/18 00:36 Dose: 650 mg Acetaminophen (Tylenol 325mg Tab) 650 mg PO Q6 PRN PRN Reason: TEMP>=99.5F Acetaminophen (Tylenol 650 Mg Supp) 650 mg RC Q6H PRN PRN Reason: TEMP>=99.5F Dextrose (Dextrose 50% Inj) 0 ml IV STAT PRN; Protocol PRN Reason: Hypoglycemia Protocol Docusate Sodium (Colace) 100 mg PO TID [facility] Last Admin: 12/11/18 09:25 Dose: 100 mg Ferrous Gluconate (Fergon) 324 mg PO TID [facility] Last Admin: 12/10/18 18:00 Dose: Not Given Heparin Sodium (Porcine) (Heparin) 5,000 units SC Q8 [facility]; Protocol Last Admin: 12/10/18 08:30 Dose: Not Given Meropenem/Sodium Chloride (Merrem Iv 500 Mg/Ns 50 Ml) 500 mg in 50 mls @ 100 mls/hr IVPB Q12 [facility]; Protocol Last Admin: 12/11/18 09:25 Dose: 100 mls/hr Dextrose (Dextrose 5% In Water 1000 Ml) 1,000 mls @ 0 mls/hr IV .Q0M PRN; Protocol PRN Reason: Hypoglycemia Protocol Sodium Chloride (Sodium Chloride 0.9%) 1,000 mls @ 75 mls/hr IV .[id number] [facility] Stop: 12/13/18 10:31 Insulin Human Lispro (Humalog Med) 0 units SC AC [facility]; Protocol Last Admin: 12/11/18 08:29 Dose: 7 units Insulin Human NPH (Humulin N) 17 [facility] Last Admin: 12/11/18 08:31 Dose: 17 unit Metoclopramide HCl (Reglan) 10 mg IV ONCE PRN PRN Reason: Nausea/Vomiting Midodrine (Proamatine) 5 mg PO TID [facility] Last Admin: 12/11/18 09:24 Dose: 5 mg Nystatin (Nystop Topical Powder) 0 gm TOP BID [facility] Last Admin: 12/10/18 17:46 Dose: Not Given Ondansetron HCl (Zofran Inj) 4 mg IVP Q4H PRN PRN Reason: Nausea/Vomiting Oxycodone/Acetaminophen (Percocet 5/325 Mg Tab) 1 tab PO Q6H PRN PRN Reason: Pain, moderate (4-7) Stop: 12/13/18 12:57 Last Admin: 12/11/18 05:35 Dose: 1 tab Pantoprazole Sodium (Protonix Ec Tab) 40 mg PO 0600 [facility] Last Admin: 12/11/18 05:35 Dose: 40 mg Polyethylene Glycol (Miralax) 17 gm PO BID [facility] Last Admin: 12/11/18 09:20 Dose: 17 gm Sodium Hypochlorite (Dakins Solution 0.25%) 20 ml TOP DAILY [facility] Last Admin: 12/11/18 10:48 Dose: Not Given Tamsulosin HCl (Flomax) 0.4 mg PO DAILY [facility] Last Admin: 12/11/18 09:25 Dose: 0.4 mg Vitamin B Complex/Vit C/Folic Acid (Nephro-Sumit) 1 tab PO 0800 [facility] Last Admin: 12/11/18 08:29 Dose: 1 tab - Labs Labs: 12/11/18 07:00 12/11/18 07:00 PT 12.6 SECONDS (9.4-12.5) H 12/10/18 13:10 INR 1.12 12/10/18 13:10 APTT 30.3 Seconds (26.9-38.3) 12/10/18 13:10
[2018-12-11] MEDS: Sodium Chloride 0.9% 1,000 ML IV SCH (12:57)
[2018-12-12] MEDS: Oxycodone/Acetaminophen 5/325 mg Tab PO PRN ×3 (01:17→18:42)
--- NOTE | 2018-12-12 03:01 | PN ---
DATE: 12/11/2018 SUBJECTIVE: The patient was seen earlier this morning, in no acute distress, nontoxic. PHYSICAL EXAMINATION: VITAL SIGNS: Temperature is 98, blood pressure is 100/60, respiratory rate 18. HEENT: Unremarkable. NECK: Supple. LUNGS: Have decreased breath sounds. HEART: Normal S1 and S2. ABDOMEN: Soft. LABORATORY DATA: Reveals a white of 10,000, hemoglobin 9. Chemistries noted, creatinine 1.9. Urinalysis is noted. was reviewed. Review of orders reveals the patient to be on meropenem. ASSESSMENT AND PLAN: This is a 73-year-old male with left second metatarsal amputation post procedure day #18 with Charcot's foot with Proteus and Pseudomonas. The patient had a left below knee amputation now postop day #1, which was done yesterday by Dr. Sosa. note is reviewed. We will discontinue the meropenem in the next 24 hours. Tai Landaverde MD
[2018-12-12] MEDS: Sodium Chloride 0.9% 1,000 ML IV SCH (04:24)
[2018-12-12] MEDS: Pantoprazole 40 mg EC Tab PO SCH (05:25)
[2018-12-12 07:09] LABS: URINE BILIRUBIN NEGATIVE (NEGATIVE); URINE BLOOD MODERATE (NEGATIVE); URINE GLUCOSE (UA) NEGATIVE (NEGATIVE); URINE LEUKOCYTE ESTERASE NEGATIVE Leu/uL (NEGATIVE); URINE PROTEIN 30 mg/dL (<30 mg/dL); URINE UROBILINOGEN 0.2 E.U./dL (<1 E.U./dL)
[2018-12-12 07:16] LABS: URINE APPEARANCE SL CLOUDY (CLEAR); URINE COLOR YELLOW (YELLOW)
[2018-12-12 07:41] LABS: URINE EPITHELIAL CELLS 0 - 2 /hpf (0-5); URINE WBC 0 - 2 /hpf (0-6)
[2018-12-12 07:47] LABS: BASO # 0.03 K/mm3 (0.0-2.0); BASO % 0.3 % (0.0-3.0); EOS # 0.5 (0.0-0.7); EOS % 5.2 % (1.5-5.0); HEMOGLOBIN 8.9 g/dL (14.0-18.0); LYMPH # 0.9 (1.2-3.4); MEAN CELL VOLUME 95.6 fl (80.0-105.0); MEAN CORPUSCULAR HGB CONC 31.3 g/dl (31.0-37.0); MEAN PLATELET VOLUME 9.6 fl (7.0-11.0); MONO # 1.3 (0.1-0.6); MONO % 14.6 % (1.0-6.0); RBC 2.97 10^6/uL (3.5-6.1); RED CELL DISTRIBUTION WIDTH 16.7 % (11.5-14.5)
[2018-12-12 08:12] LABS: ALBUMIN 3.1 g/dL (3.0-4.8); BILIRUBIN,DIRECT 0.1 mg/dL (0.0-0.4); CALCIUM 8.3 mg/dL (8.4-10.5)
--- NOTE | 2018-12-12 08:16 | CP.PCM.PN ---
Subjective - Date & Time of Evaluation Date of Evaluation: 12/12/18 Time of Evaluation: 07:30 - Subjective Subjective: (covering for Dr. Ling) Patient is seen this morning. He is lying in bed in room 572 bed 1. He complains of pain in the amputated leg. Objective - Vital Signs/Intake and Output Vital Signs (last 24 hours): Temp Pulse Resp BP Pulse Ox 98.1 F 100 H 18 108/69 98 12/11/18 22:19 12/11/18 22:19 12/11/18 22:19 12/11/18 22:19 12/11/18 22:19 - Medications Medications: Current Medications Acetaminophen (Tylenol 325mg Tab) 650 mg PO Q6H PRN PRN Reason: Pain, Mild (1-3) Last Admin: 12/12/18 03:42 Dose: 650 mg Acetaminophen (Tylenol 325mg Tab) 650 mg PO Q6 PRN PRN Reason: TEMP>=99.5F Acetaminophen (Tylenol 650 Mg Supp) 650 mg RC Q6H PRN PRN Reason: TEMP>=99.5F Dextrose (Dextrose 50% Inj) 0 ml IV STAT PRN; Protocol PRN Reason: Hypoglycemia Protocol Docusate Sodium (Colace) 100 mg PO TID [facility] Last Admin: 12/11/18 19:13 Dose: 100 mg Ferrous Gluconate (Fergon) 324 mg PO TID [facility] Last Admin: 12/11/18 19:13 Dose: 324 mg Heparin Sodium (Porcine) (Heparin) 5,000 units SC Q8 [facility]; Protocol Last Admin: 12/10/18 08:30 Dose: Not Given Meropenem/Sodium Chloride (Merrem Iv 500 Mg/Ns 50 Ml) 500 mg in 50 mls @ 100 mls/hr IVPB Q12 [facility]; Protocol Last Admin: 12/11/18 21:16 Dose: 100 mls/hr Dextrose (Dextrose 5% In Water 1000 Ml) 1,000 mls @ 0 mls/hr IV .Q0M PRN; Protocol PRN Reason: Hypoglycemia Protocol Sodium Chloride (Sodium Chloride 0.9%) 1,000 mls @ 75 mls/hr IV .[id number] [facility] Stop: 12/13/18 10:31 Last Admin: 12/12/18 04:24 Dose: 75 mls/hr Insulin Human Lispro (Humalog Med) 0 units SC AC [facility]; Protocol Last Admin: 12/11/18 16:45 Dose: Not Given Insulin Human NPH (Humulin N) 17 units SC ACBD [facility] Last Admin: 12/11/18 16:45 Dose: Not Given Metoclopramide HCl (Reglan) 10 mg IV ONCE PRN PRN Reason: Nausea/Vomiting Midodrine (Proamatine) 5 mg PO TID [facility] Last Admin: 12/11/18 19:13 Dose: 5 mg Nystatin (Nystop Topical Powder) 0 gm TOP BID [facility] Last Admin: 12/11/18 17:13 Dose: 1 appl Ondansetron HCl (Zofran Inj) 4 mg IVP Q4H PRN PRN Reason: Nausea/Vomiting Oxycodone/Acetaminophen (Percocet 5/325 Mg Tab) 1 tab PO Q6H PRN PRN Reason: Pain, moderate (4-7) Stop: 12/13/18 12:57 Last Admin: 12/12/18 01:17 Dose: 1 tab Pantoprazole Sodium (Protonix Ec Tab) 40 mg PO 0600 [facility] Last Admin: 12/12/18 05:25 Dose: 40 mg Polyethylene Glycol (Miralax) 17 gm PO BID [facility] Last Admin: 12/11/18 19:10 Dose: Not Given Sodium Hypochlorite (Dakins Solution 0.25%) 20 ml TOP DAILY [facility] Last Admin: 12/11/18 10:48 Dose: Not Given Tamsulosin HCl (Flomax) 0.4 mg PO DAILY [facility] Last Admin: 12/11/18 09:25 Dose: 0.4 mg Vitamin B Complex/Vit C/Folic Acid (Nephro-Sumit) 1 tab PO 0800 [facility] Last Admin: 12/11/18 08:29 Dose: 1 tab - Labs Labs: 12/12/18 07:00 12/11/18 07:00 PT 12.6 SECONDS (9.4-12.5) H 12/10/18 13:10 INR 1.12 12/10/18 13:10 APTT 30.3 Seconds (26.9-38.3) 12/10/18 13:10 - Constitutional Appears: No Acute Distress - Head Exam Head Exam: ATRAUMATIC, NORMOCEPHALIC - Respiratory Exam Respiratory Exam: Clear to Ausculation Bilateral, NORMAL BREATHING PATTERN - Cardiovascular Exam Cardiovascular Exam: +S1, +S2 - GI/Abdominal Exam GI & Abdominal Exam: Soft, Normal Bowel Sounds. absent: Tenderness - Extremities Exam Additional comments: Left BKA - Neurological Exam Neurological Exam: Alert, Awake Assessment and Plan - Assessment and Plan (Free Text) Assessment: s/p Left BKA Proteus Mirabilis, Pseudomonas and Beta hemolytic Group B Streptococcus Left great toe osteomyelitis PVD Diabetes mellitus EMIL Plan: Patient is status post left below the knee amputation. continue Percocet as needed for pain. BUN and creatinine improving. Wound care as per surgery. Arrangements are being made for patient to go to rehab.
[2018-12-12] MEDS: Insulin Lispro (humaLOG) MEDIUM Coverage SC SCH ×3 (08:35→17:15)
[2018-12-12] MEDS: Multivitamin Vitamin B Complex (Nephro-Vite) Tab PO SCH (08:36)
--- NOTE | 2018-12-12 08:36 | CP.PCM.PN ---
<Malinda Strickland - Last Filed: 12/12/18 08:32> Subjective - Date & Time of Evaluation Date of Evaluation: 12/12/18 Time of Evaluation: 07:00 - Subjective Subjective: General Surgery Dr. 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 No acute events overnight. Pt reports intermittent pain in LLE controlled, w/ PO meds. otherwise, no complaints. tolerating diet. Objective - Vital Signs/Intake and Output Vital Signs (last 24 hours): Temp Pulse Resp BP Pulse Ox 98.1 F 100 H 18 108/69 98 12/11/18 22:19 12/11/18 22:19 12/11/18 22:19 12/11/18 22:19 12/11/18 22:19 - Medications Medications: Current Medications Acetaminophen (Tylenol 325mg Tab) 650 mg PO Q6H PRN PRN Reason: Pain, Mild (1-3) Last Admin: 12/12/18 03:42 Dose: 650 mg Acetaminophen (Tylenol 325mg Tab) 650 mg PO Q6 PRN PRN Reason: TEMP>=99.5F Acetaminophen (Tylenol 650 Mg Supp) 650 mg RC Q6H PRN PRN Reason: TEMP>=99.5F Dextrose (Dextrose 50% Inj) 0 ml IV STAT PRN; Protocol PRN Reason: Hypoglycemia Protocol Docusate Sodium (Colace) 100 mg PO TID [facility] Last Admin: 12/11/18 19:13 Dose: 100 mg Ferrous Gluconate (Fergon) 324 mg PO TID [facility] Last Admin: 12/11/18 19:13 Dose: 324 mg Heparin Sodium (Porcine) (Heparin) 5,000 units SC Q8 [facility]; Protocol Last Admin: 12/10/18 08:30 Dose: Not Given Dextrose (Dextrose 5% In Water 1000 Ml) 1,000 mls @ 0 mls/hr IV .Q0M PRN; Protocol PRN Reason: Hypoglycemia Protocol Sodium Chloride (Sodium Chloride 0.9%) 1,000 mls @ 75 mls/hr IV .[id number] [facility] Stop: 12/13/18 10:31 Last Admin: 12/12/18 04:24 Dose: 75 mls/hr Insulin Human Lispro (Humalog Med) 0 units SC AC [facility]; Protocol Last Admin: 12/11/18 16:45 Dose: Not Given Insulin Human NPH (Humulin N) 17 units SC ACBD [facility] Last Admin: 12/11/18 16:45 Dose: Not Given Metoclopramide HCl (Reglan) 10 mg IV ONCE PRN PRN Reason: Nausea/Vomiting Midodrine (Proamatine) 5 mg PO TID [facility] Last Admin: 12/11/18 19:13 Dose: 5 mg Nystatin (Nystop Topical Powder) 0 gm TOP BID [facility] Last Admin: 12/11/18 17:13 Dose: 1 appl Ondansetron HCl (Zofran Inj) 4 mg IVP Q4H PRN PRN Reason: Nausea/Vomiting Oxycodone/Acetaminophen (Percocet 5/325 Mg Tab) 1 tab PO Q6H PRN PRN Reason: Pain, moderate (4-7) Stop: 12/13/18 12:57 Last Admin: 12/12/18 01:17 Dose: 1 tab Pantoprazole Sodium (Protonix Ec Tab) 40 mg PO 0600 [facility] Last Admin: 12/12/18 05:25 Dose: 40 mg Polyethylene Glycol (Miralax) 17 gm PO BID [facility] Last Admin: 12/11/18 19:10 Dose: Not Given Tamsulosin HCl (Flomax) 0.4 mg PO DAILY [facility] Last Admin: 12/11/18 09:25 Dose: 0.4 mg Vitamin B Complex/Vit C/Folic Acid (Nephro-Sumit) 1 tab PO 0800 [facility] Last Admin: 12/11/18 08:29 Dose: 1 tab - Labs Labs: 12/12/18 07:00 12/12/18 07:00 PT 12.6 SECONDS (9.4-12.5) H 12/10/18 13:10 INR 1.12 12/10/18 13:10 APTT 30.3 Seconds (26.9-38.3) 12/10/18 13:10 - Constitutional Appears: Non-toxic, No Acute Distress - Head Exam Head Exam: NORMAL INSPECTION - Eye Exam Eye Exam: Normal appearance - ENT Exam ENT Exam: Mucous Membranes Moist - Respiratory Exam Respiratory Exam: NORMAL BREATHING PATTERN. absent: Accessory Muscle Use, Respiratory Distress - Cardiovascular Exam Cardiovascular Exam: absent: Bradycardia, Tachycardia - GI/Abdominal Exam GI & Abdominal Exam: Soft. absent: Distended, Tenderness - Extremities Exam Additional comments: LLE w/ knee immobilizer in place BKA dressing in place - Neurological Exam Neurological Exam: Alert, Awake - Psychiatric Exam Psychiatric exam: Normal Affect, Normal Mood - Skin Skin Exam: Dry, Intact, Normal Color, Warm Assessment and Plan - Assessment and Plan (Free Text) Assessment: 73 y/o M POD#2 s/p L BKA 2/2 chronic L foot wound and osteomyelitis Plan: - PT/OT - Maintain Knee immobilizer - cont PO pain management - Keep dressing in place - restart DVT PPx Discussed w/ Dr. Ian Strickland PGY3 <Kain Sosa - Last Filed: 12/12/18 08:58> Objective - Vital Signs/Intake and Output Vital Signs (last 24 hours): Temp Pulse Resp BP Pulse Ox 98.1 F 100 H 18 108/69 98 12/11/18 22:19 12/11/18 22:19 12/11/18 22:19 12/11/18 22:19 12/11/18 22:19 - Medications Medications: Current Medications Acetaminophen (Tylenol 325mg Tab) 650 mg PO Q6 PRN PRN Reason: TEMP>=99.5F Acetaminophen (Tylenol 650 Mg Supp) 650 mg RC Q6H PRN PRN Reason: TEMP>=99.5F Dextrose (Dextrose 50% Inj) 0 ml IV STAT PRN; Protocol PRN Reason: Hypoglycemia Protocol Docusate Sodium (Colace) 100 mg PO TID [facility] Last Admin: 12/11/18 19:13 Dose: 100 mg Ferrous Gluconate (Fergon) 324 mg PO TID [facility] Last Admin: 12/11/18 19:13 Dose: 324 mg Heparin Sodium (Porcine) (Heparin) 5,000 units SC Q8 [facility]; Protocol Last Admin: 12/10/18 08:30 Dose: Not Given Dextrose (Dextrose 5% In Water 1000 Ml) 1,000 mls @ 0 mls/hr IV .Q0M PRN; Protocol PRN Reason: Hypoglycemia Protocol Sodium Chloride (Sodium Chloride 0.9%) 1,000 mls @ 75 mls/hr IV .[id number] [facility] Stop: 12/13/18 10:31 Last Admin: 12/12/18 04:24 Dose: 75 mls/hr Insulin Human Lispro (Humalog Med) 0 units SC AC [facility]; Protocol Last Admin: 12/12/18 08:35 Dose: Not Given Insulin Human NPH (Humulin N) 17 units SC ACBD [facility] Last Admin: 12/12/18 08:38 Dose: 17 unit Metoclopramide HCl (Reglan) 10 mg IV ONCE PRN PRN Reason: Nausea/Vomiting Midodrine (Proamatine) 5 mg PO TID [facility] Last Admin: 12/11/18 19:13 Dose: 5 mg Nystatin (Nystop Topical Powder) 0 gm TOP BID [facility] Last Admin: 12/11/18 17:13 Dose: 1 appl Ondansetron HCl (Zofran Inj) 4 mg IVP Q4H PRN PRN Reason: Nausea/Vomiting Oxycodone/Acetaminophen (Percocet 5/325 Mg Tab) 1 tab PO Q6H PRN PRN Reason: Pain, moderate (4-7) Stop: 12/13/18 12:57 Last Admin: 12/12/18 01:17 Dose: 1 tab Pantoprazole Sodium (Protonix Ec Tab) 40 mg PO 0600 [facility] Last Admin: 12/12/18 05:25 Dose: 40 mg Polyethylene Glycol (Miralax) 17 gm PO BID [facility] Last Admin: 12/11/18 19:10 Dose: Not Given Tamsulosin HCl (Flomax) 0.4 mg PO DAILY [facility] Last Admin: 12/11/18 09:25 Dose: 0.4 mg Vitamin B Complex/Vit C/Folic Acid (Nephro-Sumit) 1 tab PO 0800 [facility] Last Admin: 12/12/18 08:36 Dose: 1 tab - Labs Labs: 12/12/18 07:00 12/12/18 07:00 PT 12.6 SECONDS (9.4-12.5) H 12/10/18 13:10 INR 1.12 12/10/18 13:10 APTT 30.3 Seconds (26.9-38.3) 12/10/18 13:10 Assessment and Plan - Assessment and Plan (Free Text) Plan: Patient was seen, evaluated and examined by me at the bedside. I agree with assessment and plan as stated in the resident's note.
[2018-12-12] MEDS: Insulin Human NPH 1 UNITS/0.01 ML SC SCH ×2 (08:38→17:15)
--- NOTE | 2018-12-12 09:07 | PN ---
DATE: 12/12/2018 SUBJECTIVE: The patient is in bed in no acute distress. PHYSICAL EXAMINATION VITAL SIGNS: Temperature is 98, blood pressure is 108/60, respiratory rate of 18. HEENT: Unremarkable. NECK: Supple. LUNGS: Have decreased breath sounds. HEART: Normal S1, S2. ABDOMEN: Soft. LABORATORY EXAMINATION: Reveals a white count of 9.0, hemoglobin of 8, BUN of 38, creatinine of 1.9. Urinalysis is noted and immunology is noted. Serology is negative. Microbiology is noted. MEDICATIONS: Review of orders reveals the patient is on meropenem. ASSESSMENT AND PLAN: This is a 73-year-old male with a left second metatarsal amputation postprocedure day #19, Charcot foot with Pseudomonas and Proteus and now had a left [id number] amputation postoperative day #2. We will discontinue meropenem, no further antibiotics needed at this point. The patient is at risk for developing nosocomial infections. Tai Landaverde MD
[2018-12-12] MEDS: POLYETHYLENE GLYCOL 3350 17 GM/Dose PACKET PO SCH ×2 (09:12→18:41)
[2018-12-12] MEDS: Nystatin 100,000 Units/gm Topical Pow(15 gm) TOP SCH ×2 (09:14→18:43)
[2018-12-12] MEDS ORDERED: Darbepoetin Alfa 60 mcg/ml Inj SC ONE (09:16)
--- NOTE | 2018-12-12 11:41 | CP.PCM.PN ---
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 stable renal fxn Hypertension control with meds as ordered. Maintain hemodynamics stable. Avoid hypotension. Patient not on ACEI/ARB due to EMIL and hyperkalemia tendency. consider to add once stable. Monitor Input/Output, daily weights and renal function with basic metabolic panel continue with iron and MVI. PRBC as needed. dose of aransep 40 mcg weekly held as Hb >10 his K/L ratio remains high at 3.6. pending hematology eval vit d can be changed to once a month as last level 41 (last done early november) continue with flomax d/c IVF Dose meds/antibiotics for reduced GFR. Avoid fleets enema/magnesium based laxatives. Avoid nephrotoxins/NSAIDs/ iodinated contrast (unless needed emergently) Glycemic control Further work up/management as per primary team Thanks for allowing me to participate in care of your patient. Will follow patient with you. Please call if any Qs. had d/w team and son Dr Anjum Padron Office: [phone] Chief Complaint; Foot ulcer Reason for consult: Acute Kidney Injury HPI: Pt is a 73 M with hx of diabetes Mellitus (30 years), hypertension (years) PVD, Gout CKD 3 with baseline cr 1.8-1.9 presented with complaints of foot ulcer, being managed for cellulitis. seen for EMIL and pt also with PVD Denies OTC/herbal meds or NSAIDs. No recent iodinated contrast exposure. Noted obvious episodes of low BP. 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 feels better denies CP/SOB All other negative except as mentioned in HPI. per son, pt refused to go for outpt follow ups Physical Examination: General Appearance: Comfortable, in no acute respiratory distress, co-operative . Vitals reviewed and noted as below Head; Atraumatic, normocephalic ENT: no ulcers no thrush. Tongue is midline. Oropharynx: no rash or ulcers. EYES: Pupils are equal, round and reactive to light accommodation. Eye muscles and extra-ocular movement intact. Sclera is anicteric. Neck; supple no lymphadenopathy, no thyromegaly or bruit Lungs: Normal respiratory rate/effort. Breath sounds bilateral improved Heart: Incr rate. s1s2 normal. No rub or gallop. Extremities: no edema. No varicose veins. left BKA in dressing Neurological: Patient is alert awake. No focal deficit. Strength bilateral appropriate and equal Skin: Warm and dry. Normal turgor. No rash. Palpitation: Normal elasticity for age Abdomen: Abdomen is soft. Bowel sounds +. There is no abdominal tenderness, no guarding/rigidity no organomegaly Psych: lack insight and has normal affect/mood MSK: no joint tenderness or swelling. Digits and nails normal, no deformity : kidney or bladder not palpable. Labs/imaging reviewed. Past medical history, past surgical history, family history, social history, allergy reviewed and noted as below Family hx: no hx of CKD. Rest non-contributory Phos 3.5 TSAT 13% Vit D 41 PTH 49 LDL 103 kappa/lambda 3.4 uric acid 7.5 renal cyst left side Objective - Vital Signs/Intake and Output Vital Signs (last 24 hours): Temp Pulse Resp BP Pulse Ox 98.1 F 100 H 18 108/69 98 12/11/18 22:19 12/11/18 22:19 12/11/18 22:19 12/11/18 22:19 12/11/18 22:19 - Medications Medications: Current Medications Acetaminophen (Tylenol 325mg Tab) 650 mg PO Q6 PRN PRN Reason: TEMP>=99.5F Last Admin: 12/12/18 09:12 Dose: 650 mg Acetaminophen (Tylenol 650 Mg Supp) 650 mg RC Q6H PRN PRN Reason: TEMP>=99.5F Dextrose (Dextrose 50% Inj) 0 ml IV STAT PRN; Protocol PRN Reason: Hypoglycemia Protocol Docusate Sodium (Colace) 100 mg PO TID [facility] Last Admin: 12/12/18 09:13 Dose: 100 mg Ferrous Gluconate (Fergon) 324 mg PO TID [facility] Last Admin: 12/12/18 09:13 Dose: 324 mg Heparin Sodium (Porcine) (Heparin) 5,000 units SC Q8 [facility]; Protocol Last Admin: 12/10/18 08:30 Dose: Not Given Dextrose (Dextrose 5% In Water 1000 Ml) 1,000 mls @ 0 mls/hr IV .Q0M PRN; Protocol PRN Reason: Hypoglycemia Protocol Insulin Human Lispro (Humalog Med) 0 units SC AC [facility]; Protocol Last Admin: 12/12/18 08:35 Dose: Not Given Insulin Human NPH (Humulin N) 17 units SC [facility] Last Admin: 12/12/18 08:38 Dose: 17 unit Metoclopramide HCl (Reglan) 10 mg IV ONCE PRN PRN Reason: Nausea/Vomiting Midodrine (Proamatine) 5 mg PO TID [facility] Last Admin: 12/12/18 09:13 Dose: 5 mg Nystatin (Nystop Topical Powder) 0 gm TOP BID [facility] Last Admin: 12/12/18 09:14 Dose: 1 appl Ondansetron HCl (Zofran Inj) 4 mg IVP Q4H PRN PRN Reason: Nausea/Vomiting Oxycodone/Acetaminophen (Percocet 5/325 Mg Tab) 1 tab PO Q6H PRN PRN Reason: Pain, moderate (4-7) Stop: 12/13/18 12:57 Last Admin: 12/12/18 01:17 Dose: 1 tab Pantoprazole Sodium (Protonix Ec Tab) 40 mg PO 0600 [facility] Last Admin: 12/12/18 05:25 Dose: 40 mg Polyethylene Glycol (Miralax) 17 gm PO BID [facility] Last Admin: 12/12/18 09:12 Dose: 17 gm Tamsulosin HCl (Flomax) 0.4 mg PO DAILY [facility] Last Admin: 12/12/18 09:14 Dose: 0.4 mg Vitamin B Complex/Vit C/Folic Acid (Nephro-Sumit) 1 tab PO 0800 [facility] Last Admin: 12/12/18 08:36 Dose: 1 tab - Labs Labs: 12/12/18 07:00 12/12/18 07:00 PT 12.6 SECONDS (9.4-12.5) H 12/10/18 13:10 INR 1.12 12/10/18 13:10 APTT 30.3 Seconds (26.9-38.3) 12/10/18 13:10
--- NOTE | 2018-12-12 17:44 | PN ---
DATE: 12/12/2018 CARDIOLOGY FOLLOWUP SUBJECTIVE: The patient is comfortable sitting on the chair. PHYSICAL EXAMINATION: VITAL SIGNS: Blood pressure 108/69, heart rate is in the 90s. NECK: Negative JVD. LUNGS: Without rales. HEART: S1 and S2. EXTREMITIES: Without edema. LABORATORY DATA: Reviewed. IMPRESSION: 1. The patient is now off antibiotics. 2. Peripheral vascular disease. 3. Dilated cardiomyopathy. 4. Coronary artery disease. 5. Anemia. 6. Cardiomyopathy. Given these findings, the patient is hemodynamically stable. Awaiting for transfer to a alf facility. Milton Murrell MD
[2018-12-13] MEDS: Oxycodone/Acetaminophen 5/325 mg Tab PO PRN ×2 (00:52→10:31)
[2018-12-13] MEDS: Pantoprazole 40 mg EC Tab PO SCH (05:03)
[2018-12-13 07:23] LABS: BASO # 0.01 K/mm3 (0.0-2.0); BASO % 0.1 % (0.0-3.0); EOS # 0.7 (0.0-0.7); EOS % 7.8 % (1.5-5.0); HEMOGLOBIN 9.3 g/dL (14.0-18.0); LYMPH # 1.1 (1.2-3.4); LYMPH % 12.5 % (22.0-35.0); MEAN CORPUSCULAR HEMOGLOBIN 30.7 pg (25.0-35.0); MEAN PLATELET VOLUME 9.4 fl (7.0-11.0); MONO # 1.1 (0.1-0.6); RBC 3.03 10^6/uL (3.5-6.1); RED CELL DISTRIBUTION WIDTH 16.7 % (11.5-14.5); WHITE BLOOD COUNT 9.1 10^3/uL (4.5-11.0)
[2018-12-13 07:37] LABS: ALBUMIN 3.2 g/dL (3.0-4.8); BILIRUBIN,DIRECT 0.3 mg/dL (0.0-0.4); CALCIUM 8.5 mg/dL (8.4-10.5)
--- NOTE | 2018-12-13 07:44 | CP.PCM.PN ---
Subjective - Date & Time of Evaluation Date of Evaluation: 12/13/18 Time of Evaluation: 06:45 - Subjective Subjective: General Surgery Pt seen and examined. No issues overnight. Complains of occasionally having pain in LLE. Controlled with PO medications. Tolerating diet. Objective - Vital Signs/Intake and Output Vital Signs (last 24 hours): Temp Pulse Resp BP Pulse Ox 98.3 F 94 H 17 93/57 L 99 12/12/18 14:00 12/12/18 14:00 12/12/18 14:00 12/12/18 14:00 12/12/18 14:00 - Medications Medications: Current Medications Acetaminophen (Tylenol 325mg Tab) 650 mg PO Q6 PRN PRN Reason: TEMP>=99.5F Last Admin: 12/12/18 22:42 Dose: 650 mg Acetaminophen (Tylenol 650 Mg Supp) 650 mg RC Q6H PRN PRN Reason: TEMP>=99.5F Dextrose (Dextrose 50% Inj) 0 ml IV STAT PRN; Protocol PRN Reason: Hypoglycemia Protocol Docusate Sodium (Colace) 100 mg PO TID [facility] Last Admin: 12/12/18 18:42 Dose: 100 mg Ferrous Gluconate (Fergon) 324 mg PO TID [facility] Last Admin: 12/12/18 18:42 Dose: 324 mg Heparin Sodium (Porcine) (Heparin) 5,000 units SC Q8 [facility]; Protocol Last Admin: 12/13/18 05:03 Dose: 5,000 units Dextrose (Dextrose 5% In Water 1000 Ml) 1,000 mls @ 0 mls/hr IV .Q0M PRN; Protocol PRN Reason: Hypoglycemia Protocol Insulin Human Lispro (Humalog Med) 0 units SC AC [facility]; Protocol Last Admin: 12/12/18 17:15 Dose: Not Given Insulin Human NPH (Humulin N) 17 [facility] Last Admin: 12/12/18 17:15 Dose: 17 unit Metoclopramide HCl (Reglan) 10 mg IV ONCE PRN PRN Reason: Nausea/Vomiting Midodrine (Proamatine) 5 mg PO TID [facility] Last Admin: 12/12/18 18:42 Dose: 5 mg Nystatin (Nystop Topical Powder) 0 gm TOP BID [facility] Last Admin: 12/12/18 18:43 Dose: 1 appl Ondansetron HCl (Zofran Inj) 4 mg IVP Q4H PRN PRN Reason: Nausea/Vomiting Oxycodone/Acetaminophen (Percocet 5/325 Mg Tab) 1 tab PO Q6H PRN PRN Reason: Pain, moderate (4-7) Stop: 12/13/18 12:57 Last Admin: 12/13/18 00:52 Dose: 1 tab Pantoprazole Sodium (Protonix Ec Tab) 40 mg PO 0600 [facility] Last Admin: 12/13/18 05:03 Dose: 40 mg Polyethylene Glycol (Miralax) 17 gm PO BID [facility] Last Admin: 12/12/18 18:41 Dose: 17 gm Tamsulosin HCl (Flomax) 0.4 mg PO DAILY [facility] Last Admin: 12/12/18 09:14 Dose: 0.4 mg Vitamin B Complex/Vit C/Folic Acid (Nephro-Sumit) 1 tab PO 0800 [facility] Last Admin: 12/12/18 08:36 Dose: 1 tab - Labs Labs: 12/13/18 07:00 12/13/18 07:00 PT 12.6 SECONDS (9.4-12.5) H 12/10/18 13:10 INR 1.12 12/10/18 13:10 APTT 30.3 Seconds (26.9-38.3) 12/10/18 13:10 - Constitutional Appears: Non-toxic, No Acute Distress - Head Exam Head Exam: ATRAUMATIC, NORMOCEPHALIC - Eye Exam Eye Exam: EOMI. absent: Scleral icterus - Respiratory Exam Respiratory Exam: NORMAL BREATHING PATTERN. absent: Respiratory Distress - GI/Abdominal Exam GI & Abdominal Exam: Soft. absent: Distended, Tenderness - Extremities Exam Extremities Exam: absent: Calf Tenderness Additional comments: L BKA Dressing C/D/I - Neurological Exam Neurological Exam: Alert, Awake - Skin Skin Exam: Dry, Warm Assessment and Plan - Assessment and Plan (Free Text) Assessment: 73 y/o M POD#3 s/p L BKA 2/2 chronic L foot wound and osteomyelitis Plan: - PT/OT - Maintain Knee immobilizer - Cont PO pain management - Will change dressing today - DVT PPx D/W Dr. Ian Hale PGY4
--- NOTE | 2018-12-13 08:19 | OP ---
PROCEDURE DATE: 12/10/2018 SURGEON: Kain Sosa MD ASSISTANTS: Dr. Hale, PGY-[address] Strickland, PGY-3 TYPE OF ANESTHESIA: General LMA. PREOPERATIVE DIAGNOSIS: Left chronic foot wound and osteomyelitis. POSTOPERATIVE DIAGNOSIS: Left chronic foot wound and osteomyelitis. OPERATION PERFORMED: Left below-knee amputation. SPECIMEN: Left foot. ESTIMATED BLOOD LOSS: 50 mL. DATE OF OPERATION: 12/10/2018. DESCRIPTION OF PROCEDURE: After consent was obtained from the power of document review attorney, the patient was taken to the operating room and placed on the OR table in supine position. Measurements were taken of the left lower extremity to determine where incisions and flaps would be made prior to prepping and draping the patient in the usual sterile fashion. At this time, a timeout was performed confirming correct patient, placement, procedure, and site. The anterior skin incision was made 10 cm below the tibial tuberosity and extended medially and laterally two-thirds around the lower extremity towards the gastrocnemius muscle. The skin incisions was then extended distally on either side parallel to the tibia for an additional 10 cm creating a posterior flap. The skin and subcutaneous tissues were divided down to the fascia. The greater and short saphenous veins from the medial and posterior aspects of the leg respectively were ligated and divided using 0 Vicryl real ties. The fascia and muscles were then divided with the electrocautery at the same level as the anterior skin incision. Muscles in the anterior and lateral compartments were divided exposing the anterior tibial vessels which were ligated and divided using 0 Vicryl tie. The interosseous membrane was then incised and the tibial periosteum was incised circumferentially with electrocautery as the same level as the skin and muscle division. Using a periosteal elevator, tibial periosteum was striped approximately 2 cm proximally. The tibia was then transected with an electric saw, 2 cm proximal to the skin incision with an anterior level. The fibula was then exposed, dissected circumferentially and transected with a bone cutter 2 cm proximal to the tibial division. The amputation was then completed with electrocautery, transecting the soleus muscle obliquely and the gastrocnemius muscle at the level of the posterior flap. Bleeding soleal, posterior tibial and peroneal veins were clamped and ligated using 0 Vicryl tie. The sharp bony edges of the tibia were then filed and bone wax was applied to both the end of the fibula and tibia. The fascia of the anterior and posterior muscle flap were then approximated with interrupted absorbable sutures. 20cc of Exparel was injected along the closed fascia. The skin was closed in 2 layers with 3-0 Vicryl deep dermal interrupted sutures and skin donaldo. A sterile dressing consisting of Xeroform, 4 x 4s, Kerlix and Kenn wrap was applied to the BKA stump. A knee immobilizer was then applied to prevent contracture of the lower extremity. The patient tolerated the procedure well, was extubated in the OR, and taken to PACU in stable condition. Malinda Strickland DO Kain Sosa MD [facility]
[2018-12-13] MEDS: Insulin Human NPH 1 UNITS/0.01 ML SC SCH ×2 (10:28→18:52)
[2018-12-13] MEDS: Multivitamin Vitamin B Complex (Nephro-Vite) Tab PO SCH (10:28)
[2018-12-13] MEDS: POLYETHYLENE GLYCOL 3350 17 GM/Dose PACKET PO SCH ×2 (10:28→18:52)
[2018-12-13] MEDS: Insulin Lispro (humaLOG) MEDIUM Coverage SC SCH ×3 (10:29→18:11)
[2018-12-13] MEDS: Nystatin 100,000 Units/gm Topical Pow(15 gm) TOP SCH (10:31)
--- NOTE | 2018-12-13 11:25 | CP.PCM.PN ---
Subjective - Date & Time of Evaluation Date of Evaluation: 12/13/18 Time of Evaluation: 07:50 - Subjective Subjective: Sylwia Chambers DO, PGY-2: Progress Note for Dr. Ling Patient was seen and examined at bedside. Patient reports his pain is controlled on his current regimen. He reports sleeping a bit overnight. He appears a bit more agitated than usual today. Objective - Vital Signs/Intake and Output Vital Signs (last 24 hours): Temp Pulse Resp BP Pulse Ox 98.3 F 94 H 17 93/57 L 99 12/12/18 14:00 12/12/18 14:00 12/12/18 14:00 12/12/18 14:00 12/12/18 14:00 - Medications Medications: Current Medications Acetaminophen (Tylenol 325mg Tab) 650 mg PO Q6 PRN PRN Reason: TEMP>=99.5F Last Admin: 12/12/18 22:42 Dose: 650 mg Acetaminophen (Tylenol 650 Mg Supp) 650 mg RC Q6H PRN PRN Reason: TEMP>=99.5F Dextrose (Dextrose 50% Inj) 0 ml IV STAT PRN; Protocol PRN Reason: Hypoglycemia Protocol Docusate Sodium (Colace) 100 mg PO TID [facility] Last Admin: 12/13/18 10:27 Dose: 100 mg Ferrous Gluconate (Fergon) 324 mg PO TID [facility] Last Admin: 12/13/18 10:28 Dose: 324 mg Heparin Sodium (Porcine) (Heparin) 5,000 units SC Q8 [facility]; Protocol Last Admin: 12/13/18 05:03 Dose: 5,000 units Dextrose (Dextrose 5% In Water 1000 Ml) 1,000 mls @ 0 mls/hr IV .Q0M PRN; Protocol PRN Reason: Hypoglycemia Protocol Insulin Human Lispro (Humalog Med) 0 units SC AC [facility]; Protocol Last Admin: 12/13/18 10:29 Dose: 1 units Insulin Human NPH (Humulin N) 17 units SC ACBD [facility] Last Admin: 12/13/18 10:28 Dose: 17 unit Metoclopramide HCl (Reglan) 10 mg IV ONCE PRN PRN Reason: Nausea/Vomiting Midodrine (Proamatine) 10 mg PO TID [facility] Last Admin: 12/13/18 10:28 Dose: 10 mg Nystatin (Nystop Topical Powder) 0 gm TOP BID [facility] Last Admin: 05/20/19 10:31 Dose: 1 appl Ondansetron HCl (Zofran Inj) 4 mg IVP Q4H PRN PRN Reason: Nausea/Vomiting Oxycodone/Acetaminophen (Percocet 5/325 Mg Tab) 1 tab PO Q6H PRN PRN Reason: Pain, moderate (4-7) Stop: 12/13/18 12:57 Last Admin: 12/13/18 10:31 Dose: 1 tab Pantoprazole Sodium (Protonix Ec Tab) 40 mg PO 0600 [facility] Last Admin: 12/13/18 05:03 Dose: 40 mg Polyethylene Glycol (Miralax) 17 gm PO BID [facility] Last Admin: 12/13/18 10:28 Dose: 17 gm Tamsulosin HCl (Flomax) 0.4 mg PO DAILY [facility] Last Admin: 12/13/18 10:28 Dose: 0.4 mg Vitamin B Complex/Vit C/Folic Acid (Nephro-Sumit) 1 tab PO 0800 [facility] Last Admin: 12/13/18 10:28 Dose: 1 tab - Labs Labs: 12/13/18 07:00 12/13/18 07:00 PT 12.6 SECONDS (9.4-12.5) H 12/10/18 13:10 INR 1.12 12/10/18 13:10 APTT 30.3 Seconds (26.9-38.3) 12/10/18 13:10 - Constitutional Appears: Well, Non-toxic - Head Exam Head Exam: ATRAUMATIC, NORMOCEPHALIC - Eye Exam Eye Exam: EOMI, Normal appearance, PERRL - ENT Exam ENT Exam: Mucous Membranes Moist, Normal Exam - Neck Exam Neck Exam: Normal Inspection - Respiratory Exam Respiratory Exam: Clear to Ausculation Bilateral, NORMAL BREATHING PATTERN. absent: Accessory Muscle Use - Cardiovascular Exam Cardiovascular Exam: RRR, +S1, +S2 - GI/Abdominal Exam GI & Abdominal Exam: Soft, Normal Bowel Sounds - Extremities Exam Additional comments: left BKA - Neurological Exam Neurological Exam: Alert, Awake, CN II-XII Intact - Psychiatric Exam Psychiatric exam: Normal Affect, Normal Mood Assessment and Plan - Assessment and Plan (Free Text) Assessment: 73 year old male with a past medical history of atrial fibrillation, gout, BPH, and DM II who presented to [facility] [place] for a chronic non-healing left foot ulcer. Plan: 1) left BKA secondary to Chronic non-healing left foot ulcer - Surgery is following 2) Hypotension - Midodrine 2.5 mg TID 3) DM II - NPH 17 units ACBD - ISS Lispro (medium) - Hypoglycemia protocol instituted 4) EMIL on CKD, resolving - Nephrology is following - Nephrovite 1 tab 0800 5) Gout - Allopurinol 100 mg daily 6) BPH - Flomax 0.4 mg 7) CAD - Aspirin 81 mg - Atorvastatin 20 mg DIN 8) Constipation - Docusate 100 mg TID 9) GI/DVT prophylaxis - Protonix 40 mg - Heparin 5,000 units q8 10) Persistent Leukocytosis - Flow cytometry reads as follows: no immunophenotypic evidence for abnormal myeloid maturation, an increase in blast or a lymphoproliferative disorder
--- NOTE | 2018-12-13 14:10 | CP.PCM.PN ---
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 stable renal fxn Hypertension control with meds as ordered. Maintain hemodynamics stable. Avoid hypotension. Patient not on ACEI/ARB due to EMIL and hyperkalemia tendency. consider to add once stable. Monitor Input/Output, daily weights and renal function with basic metabolic panel continue with iron and MVI. PRBC as needed. dose of aransep 40 mcg weekly held as Hb >10 his K/L ratio remains high at 3.6. pending hematology eval vit d can be changed to once a month as last level 41 (last done early november) continue with flomax d/c IVF. can give prn Dose meds/antibiotics for reduced GFR. Avoid fleets enema/magnesium based laxatives. Avoid nephrotoxins/NSAIDs/ iodinated contrast (unless needed emergently) Glycemic control Further work up/management as per primary team Thanks for allowing me to participate in care of your patient. Will follow patient with you. Please call if any Qs. had d/w team and son Dr Anjum Padron Office: [phone] Chief Complaint; Foot ulcer Reason for consult: Acute Kidney Injury HPI: Pt is a 73 M with hx of diabetes Mellitus (30 years), hypertension (years) PVD, Gout CKD 3 with baseline cr 1.8-1.9 presented with complaints of foot ulcer, being managed for cellulitis. seen for EMIL and pt also with PVD Denies OTC/herbal meds or NSAIDs. No recent iodinated contrast exposure. Noted obvious episodes of low BP. 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 feels better denies CP/SOB All other negative except as mentioned in HPI. per son, pt refused to go for outpt follow ups Physical Examination: General Appearance: Comfortable, in no acute respiratory distress, co-operative . Vitals reviewed and noted as below Head; Atraumatic, normocephalic ENT: no ulcers no thrush. Tongue is midline. Oropharynx: no rash or ulcers. EYES: Pupils are equal, round and reactive to light accommodation. Eye muscles and extra-ocular movement intact. Sclera is anicteric. Neck; supple no lymphadenopathy, no thyromegaly or bruit Lungs: Normal respiratory rate/effort. Breath sounds bilateral clear Heart: Incr rate. s1s2 normal. No rub or gallop. Extremities: no edema. No varicose veins. left BKA in dressing Neurological: Patient is alert awake. No focal deficit. Strength bilateral appropriate and equal Skin: Warm and dry. Normal turgor. No rash. Palpitation: Normal elasticity for age Abdomen: Abdomen is soft. Bowel sounds +. There is no abdominal tenderness, no guarding/rigidity no organomegaly Psych: lack insight and has normal affect/mood MSK: no joint tenderness or swelling. Digits and nails normal, no deformity : kidney or bladder not palpable. Labs/imaging reviewed. Past medical history, past surgical history, family history, social history, allergy reviewed and noted as below Family hx: no hx of CKD. Rest non-contributory Phos 3.5 TSAT 13% Vit D 41 PTH 49 LDL 103 kappa/lambda 3.4 uric acid 7.5 renal cyst left side Objective - Vital Signs/Intake and Output Vital Signs (last 24 hours): Temp Pulse Resp BP Pulse Ox 98.3 F 94 H 17 93/57 L 99 12/12/18 14:00 12/12/18 14:00 12/12/18 14:00 12/12/18 14:00 12/12/18 14:00 - Medications Medications: Current Medications Acetaminophen (Tylenol 325mg Tab) 650 mg PO Q6 PRN PRN Reason: TEMP>=99.5F Last Admin: 12/12/18 22:42 Dose: 650 mg Acetaminophen (Tylenol 650 Mg Supp) 650 mg RC Q6H PRN PRN Reason: TEMP>=99.5F Dextrose (Dextrose 50% Inj) 0 ml IV STAT PRN; Protocol PRN Reason: Hypoglycemia Protocol Docusate Sodium (Colace) 100 mg PO TID [facility] Last Admin: 12/13/18 10:27 Dose: 100 mg Ferrous Gluconate (Fergon) 324 mg PO TID [facility] Last Admin: 12/13/18 10:28 Dose: 324 mg Heparin Sodium (Porcine) (Heparin) 5,000 units SC Q8 [facility]; Protocol Last Admin: 12/13/18 05:03 Dose: 5,000 units Dextrose (Dextrose 5% In Water 1000 Ml) 1,000 mls @ 0 mls/hr IV .Q0M PRN; Stephany col PRN Reason: Hypoglycemia Protocol Insulin Human Lispro (Humalog Med) 0 units SC AC [facility]; Protocol Last Admin: 12/13/18 12:48 Dose: 5 units Insulin Human NPH (Humulin N) 17 units SC ACBD [facility] Last Admin: 12/13/18 10:28 Dose: 17 unit Metoclopramide HCl (Reglan) 10 mg IV ONCE PRN PRN Reason: Nausea/Vomiting Midodrine (Proamatine) 10 mg PO TID [facility] Last Admin: 12/13/18 10:28 Dose: 10 mg Nystatin (Nystop Topical Powder) 0 gm TOP BID [facility] Last Admin: 12/13/18 10:31 Dose: 1 appl Ondansetron HCl (Zofran Inj) 4 mg IVP Q4H PRN PRN Reason: Nausea/Vomiting Pantoprazole Sodium (Protonix Ec Tab) 40 mg PO 0600 [facility] Last Admin: 12/13/18 05:03 Dose: 40 mg Polyethylene Glycol (Miralax) 17 gm PO BID [facility] Last Admin: 12/13/18 10:28 Dose: 17 gm Tamsulosin HCl (Flomax) 0.4 mg PO DAILY [facility] Last Admin: 12/13/18 10:28 Dose: 0.4 mg Vitamin B Complex/Vit C/Folic Acid (Nephro-Sumit) 1 tab PO 0800 [facility] Last Admin: 12/13/18 10:28 Dose: 1 tab - Labs Labs: 12/13/18 07:00 12/13/18 07:00 PT 12.6 SECONDS (9.4-12.5) H 12/10/18 13:10 INR 1.12 12/10/18 13:10 APTT 30.3 Seconds (26.9-38.3) 12/10/18 13:10
--- NOTE | 2018-12-13 21:59 | PN ---
DATE: 12/13/2018 SUBJECTIVE: The patient is seen earlier today. The patient is in bed, in no acute distress. PHYSICAL EXAMINATION: VITAL SIGNS: Temperature is 98, blood pressure is 93/50, respiratory rate of 18. HEENT: Unremarkable. NECK: Supple. LUNGS: Decreased breath sounds. HEART: Normal S1, S2. ABDOMEN: Soft. LABORATORY DATA: Reveals a white count of 9.1, hemoglobin of 9, BUN of 36, creatinine of 1.9. Throat culture is negative, anaerobic. Review of orders reveals the patient to be off of antibiotics. ASSESSMENT AND PLAN: This is a 73-year-old male with left second metatarsal amputation postprocedure day #20, Charcot's foot with Pseudomonas and Proteus now, status post left below knee amputation postop day #3, off of antibiotics, afebrile. The patient is at risk for developing nosocomial infections. Tai Landaverde MD
--- NOTE | 2018-12-14 03:04 | DS ---
The patient is seen in room 572, bed 1. PHYSICAL EXAMINATION: GENERAL: The patient is seen lying in the bed. The patient is alert, awake, responsive to person, place, disoriented to year, date, month and time. Overnight nurse's notes were reviewed. VITAL SIGNS: T-max 98.3; heart rate 24; blood pressure 93/57, 96/63, 108/69; respirations 17, O2 sat 99%. HEENT: Head examination normocephalic, atraumatic. HEENT examination shows pinkish pale conjunctivae. Anicteric sclerae. No oropharyngeal lesion. Dry oral mucosa. CHEST: Kyphosis. LUNGS: Shows no audible crackle, rales, or wheezing. CARDIOVASCULAR: Shows S1, S2, regular rhythm. Questionable soft systolic murmur at left sternal border, right second intercostal space, left second intercostal space. ABDOMEN: Soft, positive bowel sound. No palpable hepatosplenomegaly. GENITALIA: Male. RECTAL: Deferred. EXTREMITIES: Positive left below-knee amputation noted. Gait examination is not tested. Right lower extremity shows no pitting edema, no Gomes's or Homans' sign. NEUROLOGIC: The patient is alert, awake, responsive, is able to move upper and lower extremities without assistance. Gait examination not tested. LABORATORY DATA: Diagnostics from 12/13/2018, WBC 9.1, hemoglobin/hematocrit are 9.3/29.1, platelet 333,000. Sodium 137, potassium 4.6, chloride 100, CO2 of 27, anion gap 14, BUN 36, creatinine 1.9, GFR 35, glucose 170, calcium 8.5, phosphorus 3.4, magnesium 2.3. LFTs are normal. FINAL IMPRESSION, PLAN AND DISCHARGE DIAGNOSES: 1. Proteus mirabilis, Pseudomonas aeruginosa, beta hemolytic Streptococcus group B left foot left great toe acute osteomyelitis with gangrenous necrosis and gouty tophi. 2. Persistent refractory slow resolving leukocytosis and granulocytosis. 3. High-grade fever. 4. Tachycardia. 5. Hypotension. 6. Status post left below-knee amputation secondary to left chronic foot and toe wound and osteomyelitis. 7. Status post left great toe amputation and second metatarsal amputation and third and fourth toe removal toenail removal. 8. Anemia. 9. Status post packed red blood cell transfusion x3. 10. Slow resolving persistent leukocytosis. 11. Elevated erythrocyte sedimentation rate of 122 12. Acute kidney injury with underlying chronic kidney disease stage III/IV. 13. Mild hyperalbuminemia and mild protein malnutrition. 14. Hyperphosphatemia. 15. Severe peripheral vascular disease of the lower extremity with ankle-brachial index of less than 1. 16. Elevated C-reactive protein of greater than 15. 17. Proteinuria, microscopic hematuria, bacteriuria. 18. 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 19. Gait dysfunction. 20. Deconditioning. 21. 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 22. Dilated cardiomyopathy with severe mitral, tricuspid regurgitation. Ejection fraction of 35%. 23. Delirium versus transient confusional and disorientation state. 24. Constipation. 25. Iron-deficiency. 26. Prostatic hypertrophy. 27. Insulin-requiring diabetes mellitus. 28. Hypotension. 1. Proteus mirabilis, Pseudomonas aeruginosa and beta hemolytic Streptococcus group B left foot great toe osteomyelitis and acute osteomyelitis. 2. High-grade fever. 3. Tachycardia. 4. Hypotension. 5. Dilated cardiomyopathy. 6. Left ventricular ejection fraction of 35%. 7. Pulmonary hypertension with right ventricular systolic pressure of 40 mmHg. 8. Moderately impaired left ventricular systolic function and global left ventricular hypokinesis. 9. [id number] mitral and hyaauguf-et-laqwot tricuspid regurgitation. 10. Gait dysfunction. 11. Deconditioning. 12. Persistent refractory leukocytosis with granulocytosis. 13. Elevated erythrocyte sedimentation rate of 122. 14. Acute kidney injury with underlying hypertensive diabetic chronic kidney disease stage 4. 15. Uncontrolled diabetes mellitus with hemoglobin A1c of 8.6 and fructosamine of 329. 16. Lactic acidosis. 17. Hyperphosphatemia. 18. Proteinuria, microscopic hematuria, bacteriuria. 19. 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 20. Anemia with decreasing hemoglobin and hematocrit and status post packed red blood cell transfusion x3. 21. Episodic confusion and confusional state. 22. Chronic microvascular ischemic disease of the brain with cerebral cortical atrophy of the brain. 23. Left foot great toe acute osteomyelitis with gangrenous necrosis and gouty tophi. 24. Left anterior hemiblock. 25. Status post left foot great toe amputation, second metatarsal amputation and third and fourth toe toenail removal and wound debridement. 26. History of poor compliance and noncompliance. 27. Severe peripheral vascular disease of the lower extremity with ankle-brachial indexes of less than 1 and bilateral popliteal trifurcation and tibial disease. 1. Pseudomonas aeruginosa, Proteus mirabilis and beta-hemolytic Streptococcus group B acute osteomyelitis of the left foot toe with gangrenous necrosis and gouty tophi. 2. Left foot diabetic foot ulceration. 3. Status post left foot great toe amputation and second metatarsal amputation and left foot second, third and fourth toe removal and wound debridement. 4. Tachycardia. 5. Hypertension. 6. Persistent refractory leukocytosis with granulocytosis. 7. Normocytic anemia. 8. Uncontrolled insulin-requiring diabetes mellitus with hyperglycemia. 9. Acute kidney injury with chronic kidney disease stage 4. 10. Proteinuria, microscopic hematuria, bacteriuria. 11. 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 12. Status post packed red blood cell transfusion x3. 13. Dilated cardiomyopathy with ejection fraction of 35% to 40%. 14. Acute kidney injury with underlying hypertensive diabetic chronic kidney disease stage 3. 15. Anemia. 16. Mitral and tricuspid regurgitation. 1. Osteomyelitis of the left foot great toe and left foot with gangrenous necrosis and gouty tophi. 2. Severe bilateral lower extremity peripheral vascular disease with ankle-brachial index of less than 1. 3. Uncontrolled type 2 diabetes mellitus with hyperglycemia and elevated hemoglobin A1c and fructosaminemia. 4. History of hypertension. 5. Tachycardia. 6. High-grade fever. 7. History of hyperuricemia and gouty arthritis. 8. Questionable monoclonal gammopathy of unknown significance with elevated kappa lambda issue. 9. Gait dysfunction. 10. Deconditioning with gait dysfunction with nonweightbearing status of the left foot and left lower extremity. 11. Leukocytosis with granulocytosis. 12. Persistent refractory leukocytosis with granulocytosis. 13. Anemia with decreasing hemoglobin/hematocrit status post packed red blood cell transfusion x3. 14. Transient confusional state and disorientation, questionable delirium versus toxic metabolic encephalopathy secondary to underlying medical problems. 15. Dilated cardiomyopathy with ejection fraction of 35%. 16. [id number] mitral and tricuspid regurgitation. 17. Acute kidney injury with underlying hypertensive diabetic chronic kidney disease. 18. Hyperphosphatemia. 19. Questionable secondary hyperparathyroidism with hyperphosphatemia. 20. Gait dysfunction. 1. Acute left foot, left second toe osteomyelitis with gangrenous necrosis and gouty tophi. 2. Severe peripheral vascular disease of the lower extremity. 3. Status post left foot great toe amputation and metatarsal amputation. 4. Status post left foot wound debridement. 5. Status post left foot second and third toe nail removal. 6. Uncontrolled insulin-requiring diabetes mellitus with hyperglycemia. 7. Left foot diabetic foot ulceration and cellulitis and acute osteomyelitis. 8. Persistent refractory leukocytosis with granulocytosis. 9. Normocytic anemia, status post packed red blood cell transfusion x3. 10. Acute kidney injury with underlying hypertensive diabetic chronic kidney disease stage III. 11. History of hyperuricemia and gout. 12. Gait dysfunction. 13. Delirium with episodic and transient confusional and disorientation state versus delirium. 14. Possible underlying toxic metabolic encephalopathy secondary to multiple comorbidities and medical comorbidities. 15. History of hypertension. 16. History of cardiomyopathy with left ventricular ejection fraction of 35%. 17. Questionable and possible monoclonal gammopathy of unknown significance. 18. Deconditioning. 19. Hypotension. 1. Left foot great toe and left foot acute osteomyelitis secondary to Pseudomonas aeruginosa, Proteus mirabilis and beta hemolytic group B strep. 2. Severe peripheral vascular disease of the lower extremity. 3. Refractory slow resolving leukocytosis with granulocytosis. 4. Normocytic anemia with decreasing hemoglobin and hematocrit. 5. Status post packed red blood cell transfusion. 6. Uncontrolled diabetes mellitus with hyperglycemia and elevated hemoglobin A1c. 7. Severe peripheral vascular disease of the lower extremity. 8. Acute kidney injury with underlying hypertensive diabetic chronic kidney disease. 9. Normocytic anemia, status post packed red blood cell transfusion x2. 10. Gouty tophi and history of gouty arthritis and hyperuricemia. 11. History of hypertension. 12. Presently hypotension. 13. Tachycardia. 14. Dilated cardiomyopathy with left ventricle ejection fraction around 35%. 15. Severe tricuspid and mitral regurgitation. 16. History of severe noncompliance and poor compliance. 17. Severe peripheral vascular disease. 18. Gait dysfunction. 19. Deconditioning. 20. Transient confusional state versus delirium versus encephalopathy secondary to underlying multiple comorbidity. 21. Gait dysfunction with nonweightbearing status of the left foot. 22. Status post left foot great toe amputation and metatarsal amputation and debridement of the left foot wound and removal of the left foot second and third toe. 1. Left foot great toe and left foot acute osteomyelitis. 2. Non-hemolyzed hyperkalemia. 3. Acute kidney injury and underlying hypertensive/diabetic chronic kidney disease stage 3/4. 4. Leukocytosis with granulocytosis. 5. Anemia. 6. Status post packed red blood cell transfusion x3. 7. Transient confusional state with possible delirium and toxic metabolic encephalopathy. 8. Hypotension. 9. Tachycardia. 10. High-grade fever. 11. Diabetic ulceration of the left foot with acute osteomyelitis of the left foot and toe. 12. Severe peripheral vascular disease of the lower extremity. 13. History of hypertension. 14. History of type 2 diabetes mellitus. 15. History of peripheral vascular disease. 16. History of hyperuricemia and gout. 17. History of [id number] diabetes mellitus. 18. History of poor compliance and noncompliance. 1. Left foot great toe acute osteomyelitis with gangrenous necrosis and gouty tophi. 2. Status post left foot debridement and amputation of the left foot great toe and second metatarsal amputation. 3. Status post debridement of the left foot diabetic foot ulceration and removal of the left foot third and fourth toe nails. 4. Fever. 5. Tachycardia. 6. Persistent leukocytosis with granulocytosis. 7. Normocytic anemia. 8. Status post packed red blood cell transfusion x3. 9. Elevated erythrocyte sedimentation rate of 122. 10. Uncontrolled diabetes mellitus with hyperglycemia and hypoglycemia with hemoglobin A1c of 8.6 and fructosamine of 329. 11. Acute kidney injury with underlying chronic kidney disease stage 3/4. 12. Proteinuria, microscopic hematuria, bacteriuria. 13. 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 14. Proteus mirabilis, Pseudomonas aeruginosa,and beta-hemolytic Streptococcus group B left foot diabetic foot ulceration and acute osteomyelitis. 15. Gait dysfunction. 16. Deconditioning with nonweightbearing status of the left foot. 17. Sepsis with Pseudomonas aeruginosa, Proteus mirabilis and group B Streptococcal left foot acute osteomyelitis, cellulitis and diabetic foot ulceration. 18. Questionable delirium versus toxic metabolic encephalopathy. 19. Constipation. 20. Iron deficiency. 21. Prostatic hypertrophy. 22. Hyperuricemia and gouty arthritis. 23. Hypotension. 1. Left foot great toe acute osteomyelitis with gangrenous necrosis and gouty tophi. 2. Status post left foot debridement and amputation of the left foot great toe and second metatarsal. 3. Status post debridement of the left foot and removal of the left foot third and fourth toe nails. 4. Fever. 5. Tachycardia. 6. Hypotension. 7. Persistent refractory leukocytosis with granulocytosis. 8. Elevated erythrocyte sedimentation rate 222. 9. Acute kidney injury with underlying chronic kidney disease stage III to IV. 10. Uncontrolled insulin-requiring diabetes mellitus with hemoglobin A1c of 8.6 and fructosamine of 329. 11. Lactic acidosis. 12. Elevated C-reactive protein of greater than 15. 13. Hypertriglyceridemia. 14. Decreased HDL of 18. 15. Questionable iron deficiency. 16. Questionable delirium with episodic forgetfulness and disorientation versus toxic metabolic encephalopathy. 17. Proteinuria, microscopic hematuria, and bacteriuria. 18. Questionable monoclonal gammopathy of unknown significance with elevated total kappa/lambda ratio. 19. Left foot great toe Proteus mirabilis, Pseudomonas aeruginosa, and beta hemolytic strep group B osteomyelitis and diabetic foot ulceration. 20. Status post packed red blood cell transfusion x3. 21. Gait dysfunction. 22. Deconditioning. 23. History of gout and hyperuricemia. 24. Acute kidney injury with underlying hypertensive and diabetic chronic kidney disease stage III/IV. 25. Severe mitral and tricuspid regurgitation with systolic congestive heart failure, left ventricle ejection fraction of 35% to 40%. 26. Encephalopathy. 27. Constipation. 28. Prostatic hypertrophy. 1. Acute osteomyelitis of the left foot great toe. 2. Episodic confusion, forgetfulness and disorientation, etiology unclear, questionable delirium versus encephalopathy. 3. Persistent leukocytosis. 4. 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 5. Status post left foot great toe amputation and fifth metatarsal left foot great toe amputation and metatarsal amputation. 6. 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 7. Uncontrolled diabetes mellitus with hypoglycemia. 8. Recurrent high-grade fever. 9. High-grade fever. 10. Tachycardia. 11. Hypotension. 12. History of dilated cardiomyopathy, etiology undetermined. 13. Normocytic anemia, status post packed red blood cell transfusion x3. 14. Persistent refractory leukocytosis with granulocytosis. 15. Uncontrolled diabetes mellitus with hyperglycemia and episodic hypoglycemia. 16. Left foot diabetic foot ulceration and left foot great toe acute osteomyelitis. 17. Severe peripheral vascular disease of the lower extremity. 18. Gait dysfunction. 19. Deconditioning. 20. Noncompliance. 21. History of hypertension, hyperuricemia and gout. 22. Possible monoclonal gammopathy of unknown significance with elevated kappa lambda ratio. 1. Left foot great toe acute osteomyelitis and gangrenous necrosis with gouty tophi with acute gangrenous necrosis and acute osteomyelitis. 2. High-grade fever. 3. Tachycardia. 4. Hypotension. 5. Proteus mirabilis, Pseudomonas aeruginosa and beta hemolytic streptococcus group B left foot great toe osteomyelitis, diabetic foot ulceration and cellulitis. 6. Severe peripheral vascular disease. 7. Refractory leukocytosis. 8. Granulocytosis. 9. Elevated erythrocyte sedimentation rate of 122. 10. Normocytic anemia. 11. Status post packed red blood cell transfusion x3. 12. Uncontrolled insulin-requiring diabetes mellitus with hyperglycemia and hemoglobin A1c of 8.6 and fructosamine of 329. 13. Gait dysfunction secondary to nonweightbearing status of the left foot and toe. 14. Deconditioning. 15. Questionable delirium. 16. Iron-deficiency. 17. Hypertriglyceridemia with decreased high-density lipoprotein. 18. Lactic acidosis. 19. Elevated C-reactive protein no greater than 15. 20. Acute kidney injury with underlying chronic kidney disease, stage 3/4. 21. Proteinuria. 22. Microscopic hematuria, pyuria, bacteriuria. 23. Questionable monoclonal gammopathy of unknown significance with elevated kappa to lambda ratio. 24. Status post left foot great toe amputation and second metatarsal amputation and removal of the third and fourth toe nail and wound debridement. 25. Hypertensive diabetic chronic kidney disease. 26. Severe mitral regurgitation with systolic congestive heart failure and cardiomyopathy with ejection fraction of 35%. 27. Monoclonal gammopathy of unknown significance. 28. Episodic confusion and disorientation. 29. Constipation. 30. Insulin-requiring diabetes mellitus. 31. Hypertension. 1. 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 2. Recurrent fever. 3. Tachycardia. 4. Hypertension. 5. Persistent refractory leukocytosis. 6. Normocytic anemia. 7. Status post packed red blood cell transfusion x3. 8. Reactive thrombocytosis. 9. Granulocytosis. 10. Acute kidney injury with chronic kidney disease stage 4. 11. Status post left foot left great toe amputation and metatarsal amputation. 12. Status post left foot second and third toe removal. 13. Left foot wound debridement. 14. Severe peripheral vascular disease. 15. Uncontrolled diabetes mellitus with hyperglycemia and elevated hemoglobin A1c. 16. Transitional confusional and disorientation state. 17. Possible delirium versus toxic metabolic encephalopathy. 18. Hypotension. 1. Pseudomonas aeruginosa, Proteus mirabilis and beta hemolytic group B Streptococcus, left foot diabetic ulceration and gangrene. 2. Status post status post left foot great toe amputation and metatarsal amputation. 3. Status post removal of the second and third toe nail. 4. Status post left foot wound debridement. 5. Severe peripheral vascular disease of the lower extremity with ankle-brachial indexes of less than 1. 6. History of chronic osteomyelitis of the left foot. 7. Normocytic anemia. 8. Refractory leukocytosis, slow resolving. 9. Reactive thrombocytosis. 10. Leukocytosis with granulocytosis. 11. Status post packed red blood cell transfusion x3. 12. Hypertensive and diabetic chronic kidney disease stage III. 13. Uncontrolled diabetes mellitus with hyperglycemia and elevated hemoglobin A1c. 14. Deconditioning. 15. Gait dysfunction. 16. Questionable delirium versus encephalopathy versus transient confusional and disorientation state. 17. History of hyperuricemia and gout. 18. History of poor compliance, noncompliance. 19. Tachycardia. 20. High-grade fever. 21. Transient hypotension. 22. Dilated cardiomyopathy with left ventricular ejection fraction of 35%. 23. Severe mitral and tricuspid regurgitation. 24. Severe peripheral vascular disease of the lower extremity. 1. Sepsis, secondary to left foot diabetic foot ulceration secondary to Proteus mirabilis, Pseudomonas aeruginosa, beta hemolytic group B strep. 2. High-grade fever. 3. Tachycardia. 4. Episodic hypotension. 5. Leukocytosis with granulocytosis. 6. Acute kidney injury with underlying chronic kidney disease stage 4. 7. Uncontrolled non-insulin requiring diabetes mellitus with hyperglycemia and elevated hemoglobin A1c and elevated fructosamine of 329. 8. Episodic disorientation and confusion, possible questionable delirium versus toxic metabolic encephalopathy. 9. Proteinuria, microscopic hematuria, bacteriuria. 10. Monoclonal gammopathy, of unknown significance. 11. Metabolic acidosis. 12. Hypertensive, diabetic, chronic kidney disease stage 3. 13. Severe mitral, tricuspid regurgitation with systolic congestive heart failure and cardiomyopathy with ejection fraction of 35%. 14. Left foot grade 2 amputation, second metatarsal amputation, and third and fourth toe toenail removal and wound debridement. 15. Cardiomyopathy. 16. Severe peripheral vascular disease of the lower extremity. 17. Persistent refractory leukocytosis. 18. Chronic microvascular ischemic disease of the brain and cerebral cortical atrophy of the brain. 19. Gait dysfunction. 20. Deconditioning. 21. Transient confusion state secondary to transient cerebral hypoperfusion and hyperglycemic fluctuations. 1. Status post left foot great toe amputation and second metatarsal amputation and third and fourth digit toenail removal and left foot wound debridement, postop day #1. 2. Chronic nonhealing left foot diabetic foot ulceration and possible gangrene. 3. Fever. 4. Tachycardia. 5. Hypotension. 6. Persistent refractory leukocytosis with granulocytosis. 7. Normocytic anemia, status post packed red blood cell transfusion x3. 8. Uncontrolled diabetes mellitus with hyperglycemia and elevated hemoglobin A1c of 8.6. 9. Hyper fructosemia. 10. Lactic acidosis. 11. Hyperuricemia. 12. Possible iron-deficiency. 13. Elevated C-reactive protein of greater than 15. 14. Hypertriglyceridemia. 15. Proteinuria. 16. Microscopic hematuria. 17. Bacteriuria. 18. Elevated total kappa lambda ratio. 19. Pseudomonas aeruginosa and beta hemolytic strep group B left foot diabetic foot ulceration. 20. Status post packed red blood cell transfusion x3. 21. Left foot cellulitis. 22. Chronic microvascular ischemic disease of the brain and cerebral cortical atrophy of the brain. 23. Sepsis with Pseudomonas aeruginosa and group B Streptococcus beta hemolytic Streptococcus left foot diabetic foot ulcerations and cellulitis. 24. Kidney injury with underlying chronic kidney disease. 25. Hypertensive diabetic chronic kidney disease. 26. Stage III chronic kidney disease secondary to hypertension and vasculopathy. 27. Anemia. 28. Monoclonal gammopathy of unknown significance. 29. Transient and episodic confusion and disorientation, probably secondary to transient cerebral hypoperfusion and uncontrolled diabetes mellitus. 30. Sepsis. 1. Group B Streptococcus and Pseudomonas aeruginosa, left foot diabetic foot ulceration and gangrene and cellulitis. 2. History of chronic osteomyelitis of the left foot. 3. High-grade fever. 4. Questionable sepsis versus systemic inflammatory response syndrome. 5. Tachycardia. 6 Hypotension. 7. Questionable and possible encephalopathy versus toxic metabolic encephalopathy with episodic confusion and disorientation. 8. Type 2 diabetes mellitus. 9. Anemia of chronic disease. 10. Status post packed red blood cell transfusion x2. 11. Gait dysfunction. 12. Deconditioning. 13. Status post left foot big toe amputation,2nd metatarsal amputation, wound debridement and 3rd and 4th toe nail removal. 14. Persistent refractory leukocytosis with granulocytosis 15. Normocytic anemia. 16. Uncontrolled type 2 diabetes mellitus with hyperglycemia. 17. Microvascular ischemic disease of the brain. 18. Cerebral cortical atrophy of the brain. 19. Gait dysfunction with nonweightbearing status of the left foot. 20. Severe peripheral vascular disease of the lower extremity with severe bilateral tibial and distal lower extremities severe occlusive disease with ankle-brachial index is of less than 1. 21. History of hypertension. 22. History of gout and hyperuricemia. 23. History of gouty arthritis. 24. Dilated cardiomyopathy with ejection fraction of 35% with severe mitral and tricuspid regurgitation. 25. Acute kidney injury with underlying chronic kidney disease stage III. 26. Proteinuria and microscopic hematuria. 1. High-grade fever and new fever. 2. Tachycardia. 3. Hypotension. 4. Questionable sepsis versus systemic inflammatory response syndrome with high-grade fever, tachycardia, hypotension. 5. Persistent refractory leukocytosis with granulocytosis. 6. Normocytic anemia. 7. Status post packed red blood cell transfusion x2. 8. Uncontrolled type 2 noninsulin-requiring diabetes mellitus with hyperglycemia. 9. Left foot Pseudomonas aeruginosa, group B Streptococcus with beta-hemolytic left foot, and left foot diabetic ulceration and possible diabetic left foot gangrene. 10. Proteinuria. 11. Microscopic hematuria. 12. Bacteriuria. 13. Left foot group B streptococcal beta-hemolytic and Pseudomonas aeruginosa left foot diabetic foot ulceration. 14. Episodic disorientation and confusion, etiology undetermined. 15. Questionable toxic metabolic encephalopathy. 16. Hyperglycemia secondary to uncontrolled diabetes mellitus. 17. Status post packed red blood cell transfusion x2. 18. Persistent refractory leukocytosis. 19. Left foot diabetic ulceration and diabetic cellulitis. 20. Dilated cardiomyopathy. 21. History of poor compliance and noncompliance. 22. History of hyperuricemia and gout. 23. 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 24. Gait dysfunction. 25. Deconditioning. 1. Left foot diabetic ulceration and nonhealing diabetic ulceration with possible diabetic gangrene of the left foot and great toe and the left foot toes with group B Streptococcus and Pseudomonas aeruginosa, cellulitis and diabetic foot gangrene of the left foot. 2. Uncontrolled diabetes mellitus with elevated hemoglobin A1c. 3. Fever. 4. Questionable sepsis. 5. Tachycardia. 6. Possible sepsis versus systemic inflammatory response syndrome. 7. Fever. 8. Transient hypotension. 9. Dilated cardiomyopathy. 10. Persistent refractory leukocytosis. 11. Normocytic anemia status post packed red blood cell transfusion. 12. Granulocytosis. 13. Acute kidney injury with underlying chronic kidney disease, stage IV. 14. Uncontrolled diabetes mellitus with hyperglycemia and an elevated hemoglobin A1c and hyperfructosemia. 15. History of poor compliance and noncompliance. 16. History of hyperuricemia and gout. 17. Severe peripheral vascular disease. 18. History of severe peripheral vascular disease of the lower extremity. 19. Severe mitral and tricuspid regurgitation. 20. Cardiomyopathy with ejection fraction of around 35%. 21. History of poor compliance. 22. History of chronic osteomyelitis of the left foot and partial amputation of the left foot second toe. 1. Fever. 2. Sinus tachycardia. 3. Pseudomonas nose group. Group B streptococcus group B beta hemolytic left foot diabetic foot ulcerations and cellulitis and gangrene. 4. Severe peripheral vascular disease. 5. Persistent refractory leukocytosis with granulocytosis. 6. Anemia with decreasing hemoglobin/hematocrit. 7. Elevated erythrocyte sedimentation rate of 122. 8. Chronic kidney disease, stage 3. 9. Hyperglycemia secondary to uncontrolled diabetes mellitus with hemoglobin A1c of 8.6 and hyper fructose anemia. 10. Transaminitis. 11. Iron-deficiency anemia. 12. Hypertriglyceridemia. 13. Elevated C-reactive protein of greater than 15. 14. Lactic acidosis. 15. Status post packed red blood cell transfusions x2. 16. Left foot erosive changes. 17. Severe peripheral vascular disease of bilateral popliteal trifurcation and tibial disease with normal resting ankle-brachial indices. 18. Chronic osteomyelitis of the left foot with bony destruction and sclerosis around the first metatarsophalangeal joint and partial amputation of the second proximal phalanx. 19. Severe degenerative joint disease of the left midfoot. 20. Left axis deviation. 21. Acute kidney injury with underlying chronic kidney disease. 22. Metabolic acidosis. 23. Hypertensive diabetic chronic kidney disease stage 3 without proteinuria. 24. Monoclonal gammopathy of unknown significance. 25. Severe mitral, tricuspid regurgitation with cardiomyopathy, left ventricular ejection fraction of 35% to 40%. 26. Left foot diabetic foot ulceration and gangrene. 27. Congestive heart failure with reduced ejection fraction. 28. Nonhealing left foot diabetic ulceration. 29. Sepsis with left foot cellulitis and diabetic foot ulceration with Pseudomonas secondary to Pseudomonas aeruginosa and Streptococcus group B beta hemolytic Streptococcus. 30. Questionable and possible delirium versus encephalopathy. 31. Gait dysfunction. 32. Deconditioning. 33. Constipation. 34. Hypovitaminosis D. 35. Prostatic hypertrophy. 36. Hyperlipidemia. 37. Hyperuricemia. 38. Hyperglycemia. 39. Uncontrolled diabetes mellitus with hyperglycemia. 40. Gait dysfunction. 41. History of poor compliance and noncompliance. 1. Left foot Pseudomonas aeruginosa and group B beta hemolytic strep, left foot diabetic foot ulceration and cellulitis. 2. Sepsis secondary to Pseudomonas aeruginosa and group B beta hemolytic strep, left diabetic foot ulceration and cellulitis. 3. Hypertension. 4. Tachycardia. 5. Anemia. 6. Status post packed red blood cell transfusion one unit. 7. Leukocytosis with granulocytosis. 8. Elevated erythrocyte sedimentation rate of 122. 9. Iron-deficiency. 10. Acute kidney injury with underlying chronic kidney disease, stage IV. 11. Uncontrolled diabetes mellitus with hyperglycemia and elevated hemoglobin A1c of 8.6 and elevated fructose, a mean of 329. 12. Transient lactic acidosis. 13. Transaminitis. 14. Hypertriglyceridemia. 15. Elevated C-reactive protein of greater than 15. 16. Gait dysfunction. 17. Deconditioning. 18. Metabolic acidosis. 19. 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 20. Severe mitral, tricuspid regurgitation and systolic congestive heart failure. 21. Left foot cellulitis and left foot diabetic ulceration. 22. Left diabetic foot ulceration and possible gangrene or pre-gangrenous condition of the left foot toes. 23. Left foot second digit amputation. 24. Peripheral vascular disease. 25. Left foot second toe amputation with cyanosis and mummification of the toes and forefoot of the left foot. 26. Severe tibial disease of the lower extremity. 27. Peripheral vascular disease. 28. Anemia of chronic disease. 29. Bilateral popliteal trifurcation and tibial disease. 30. Left anterior hemiblock. 1. Left foot Pseudomonas aeruginosa and group B Streptococcus beta hemolytic left foot cellulitis and diabetic foot ulcer. 2. Severe peripheral vascular disease of the lower extremity. 3. Normocytic anemia with decreasing hemoglobin. 4. Leukocytosis with granulocytosis. 5. Uncontrolled diabetes mellitus with hyperglycemia. 6. Acute kidney injury with underlying chronic kidney disease stage III/IV. 7. Transaminitis. 8. Probably anemia of chronic kidney disease. 9. Acute kidney injury with underlying chronic kidney disease. 10. Metabolic acidosis. 11. Hypertensive diabetic chronic kidney disease. 12. [id number] mitral regurgitation and [id number] tricuspid regurgitation. 13. Dilated cardiomyopathy with ejection fraction of 35%. 14. Sepsis. 15. Hypertension. 16. Gait dysfunction. 17. Deconditioning. 18. Bilateral lower extremity peripheral vascular disease. 19. History of poor compliance and noncompliance. 20. History of hyperuricemia and gout. 1. Left foot cellulitis versus gangrene versus pregangrenous state. 2. Sepsis. 3. Tachycardia. 4. Transient episodic hypotension. 5. Leukocytosis with granulocytosis 6. Elevated erythrocyte sedimentation rate of 122. 7. Normocytic anemia. 8. Chronic kidney disease stage 4 with acute kidney injury. 9. Uncontrolled noninsulin-requiring diabetes mellitus with hyperglycemia and hemoglobin A1c of 8.6. 10. Possible iron-deficiency. 11. Hypertriglyceridemia. 12. Elevated C-reactive protein of greater than 15. 13. Transient lactic acidosis. 14. Transaminitis. 15. Deconditioning. 16. Gait dysfunction. 17. Anemia with decreasing hemoglobin and hematocrit. 18. Metabolic acidosis. 19. Diabetic hypertensive chronic kidney disease. 20. Chronic kidney disease stage 3 without proteinuria. 21. Severe mitral and tricuspid regurgitation. 22. Systolic congestive heart failure. 23. Dilated ischemic cardiomyopathy, etiology undetermined. 1. Left foot cellulitis with diabetic foot disease and possible abscess versus possible osteomyelitis. 2. History of left foot second toe amputation. 3. Hypertension. 4. Tachycardia. 5. Fever. 6. Poor compliance and noncompliance. 7. Leukocytosis with granulocytosis. 8. Normocytic anemia. 9. Elevated erythrocyte sedimentation rate of 122. 10. Chronic kidney disease, stage IV with acute kidney injury. 11. Transient lactic acidosis. 12. History of hyperuricemia. 13. Hypertriglyceridemia. 14. Aortic calcification. 15. Bilateral lower extremity popliteal trifurcation and tibial peripheral vascular disease. 16. Left foot first metatarsophalangeal joint bony destruction and sclerosis, chronic osteomyelitis. 17. 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 18. 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 19. Sinus tachycardia with left anterior hemiblock. 20. Deconditioning. 21. History of poor compliance. 22. Chronic dilated ischemic cardiomyopathy with ejection fraction of . 23. History of hypertension. 24. History of heart failure with reduced ejection fraction of 35%. 25. Pulmonary hypertension with right ventricular systolic pressure of 40 mmHg. 26. Left ventricular global hypokinesis and moderately impaired left ventricular systolic function. 27. Mild aortic regurgitation. 28. Moderate to severe mitral regurgitation. 29. Moderate tricuspid regurgitation. 30. History of constipation. 31. Hypovitaminosis D. 32. History of iron-deficiency anemia. 33. Prostatic hypertrophy. 34. Insulin-requiring diabetes mellitus. 35. Hyperlipidemia. 36. History of peripheral vascular disease. 37. Hyperuricemia. 1. Left foot diabetic foot ulceration versus left foot abscess versus left foot toe osteomyelitis. 2. Tachycardia. 3. Leukocytosis with granulocytosis. 4. Questionable systemic inflammatory response syndrome. 5. Uncontrolled diabetes mellitus with hyperglycemia. 6. Chronic kidney disease stage IV. 7. Mild transaminitis. 8. History of hypertension. 9. Hyperlipidemia. 10. History of prostatic hypertrophy. 11. History of iron-deficiency anemia. 12. History of hypovitaminosis D. 13. History of dilated cardiomyopathy. 14. History of pulmonary hypertension. 15. History of moderate tricuspid regurgitation and mitral regurgitation. 16. Hyperuricemia. Plan at this time, the patient's IV antibiotic stopped by Infectious Disease. The patient has been ordered to be discharged to subacute versus acute rehab under Dr. Ling's service after cleared by Surgery. MEDICATIONS: The patient's discharge medications are as follows, 1. Tylenol 650 mg p.o. suppository every six hours p.r.n. 2. Allopurinol 100 mg daily. 3. Ecotrin 81 mg daily. 4. Lipitor 20 mg daily. 5. Pletal 50 mg twice a day. 6. Colace 100 mg three times a day. 7. Drisdol 50,000 units weekly. 8. Ferrous gluconate 324 mg twice a day. 9. NPH 17 units with breakfast and dinner. 10. Xopenex nebulizer 0.63 mg three times a day p.r.n. 11. Lopressor 25 mg twice a day. 12. ProAmatine 10 mg three times a day. 13. Protonix 40 mg daily. 14. MiraLax 17 g twice a day. 15. Protonix 40 mg daily. 16. Flomax 0.4 mg daily. 17. Nephro-Sumit 1 tablet daily. During this hospitalization, the patient's family including the patient's daughter and the son, was explained about the patient's condition, diagnosis, overall guarded to poor prognosis on multiple occasions which they acknowledged and understand. The patient's family is aware of the patient's overall guarded to poor prognosis. Time spent in the entire discharge process more than 45 minutes. Dictated and electronically signed, not read. Niranjan MD Anuradha KESHAWN
[2018-12-14] MEDS: Pantoprazole 40 mg EC Tab PO SCH (06:17)
[2018-12-14] MEDS ORDERED: Oxycodone/Acetaminophen 5/325 mg Tab PO PRN (07:03)
[2018-12-14] MEDS: Insulin Lispro (humaLOG) MEDIUM Coverage SC SCH ×3 (08:09→17:05)
[2018-12-14] MEDS: Multivitamin Vitamin B Complex (Nephro-Vite) Tab PO SCH (08:29)
[2018-12-14] MEDS: Insulin Human NPH 1 UNITS/0.01 ML SC SCH ×2 (08:31→17:05)
[2018-12-14 09:04] VITALS: RESP 18
[2018-12-14] MEDS: POLYETHYLENE GLYCOL 3350 17 GM/Dose PACKET PO SCH ×2 (09:51→17:06)
[2018-12-14] MEDS: Nystatin 100,000 Units/gm Topical Pow(15 gm) TOP SCH ×2 (09:52→17:06)
--- NOTE | 2018-12-14 11:31 | CP.PCM.PN ---
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 stable renal fxn Hypertension control with meds as ordered. Maintain hemodynamics stable. Avoid hypotension. Patient not on ACEI/ARB due to EMIL and hyperkalemia tendency. consider to add once stable. But, BP on low side mostly Monitor Input/Output, daily weights and renal function with basic metabolic panel continue with iron and MVI. PRBC as needed. dose of aransep 40 mcg weekly his K/L ratio remains high at 3.6. pending hematology eval vit d can be changed to once a month as last level 41 (last done early november) continue with flomax d/c IVF. can give prn Dose meds/antibiotics for reduced GFR. Avoid fleets enema/magnesium based laxatives. Avoid nephrotoxins/NSAIDs/ iodinated contrast (unless needed emergently) Glycemic control Further work up/management as per primary team for d/c to rehabs oon. stable from renal perspective Thanks for allowing me to participate in care of your patient. Will follow patient with you. Please call if any Qs. had d/w team and son Dr Anjum Padron Office: [phone] Chief Complaint; Foot ulcer Reason for consult: Acute Kidney Injury HPI: Pt is a 73 M with hx of diabetes Mellitus (30 years), hypertension (years) PVD, Gout CKD 3 with baseline cr 1.8-1.9 presented with complaints of foot ulcer, being managed for cellulitis. seen for EMIL and pt also with PVD Denies OTC/herbal meds or NSAIDs. No recent iodinated contrast exposure. Noted obvious episodes of low BP. 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 feels better denies CP/SOB All other negative except as mentioned in HPI. per son, pt refused to go for outpt follow ups Physical Examination: General Appearance: Comfortable, in no acute respiratory distress, co-operative . Vitals reviewed and noted as below Head; Atraumatic, normocephalic ENT: no ulcers no thrush. Tongue is midline. Oropharynx: no rash or ulcers. EYES: Pupils are equal, round and reactive to light accommodation. Eye muscles a nd extra-ocular movement intact. Sclera is anicteric. Neck; supple no lymphadenopathy, no thyromegaly or bruit Lungs: Normal respiratory rate/effort. Breath sounds bilateral clear Heart: Incr rate. s1s2 normal. No rub or gallop. Extremities: no edema. No varicose veins. left BKA in dressing Neurological: Patient is alert awake. No focal deficit. Strength bilateral appropriate and equal Skin: Warm and dry. Normal turgor. No rash. Palpitation: Normal elasticity for age Abdomen: Abdomen is soft. Bowel sounds +. There is no abdominal tenderness, no guarding/rigidity no organomegaly Psych: lack insight and has normal affect/mood MSK: no joint tenderness or swelling. Digits and nails normal, no deformity : kidney or bladder not palpable. Labs/imaging reviewed. Past medical history, past surgical history, family history, social history, allergy reviewed and noted as below Family hx: no hx of CKD. Rest non-contributory Phos 3.5 TSAT 13% Vit D 41 PTH 49 LDL 103 kappa/lambda 3.4 uric acid 7.5 renal cyst left side Objective - Vital Signs/Intake and Output Vital Signs (last 24 hours): Temp Pulse Resp BP Pulse Ox 98.5 F 94 H 18 112/73 97 12/14/18 07:00 12/14/18 07:00 12/14/18 07:00 12/14/18 07:00 12/14/18 07:00 - Medications Medications: Current Medications Acetaminophen (Tylenol 325mg Tab) 650 mg PO Q6 PRN PRN Reason: TEMP>=99.5F Last Admin: 12/12/18 22:42 Dose: 650 mg Acetaminophen (Tylenol 650 Mg Supp) 650 mg RC Q6H PRN PRN Reason: TEMP>=99.5F Dextrose (Dextrose 50% Inj) 0 ml IV STAT PRN; Protocol PRN Reason: Hypoglycemia Protocol Docusate Sodium (Colace) 100 mg PO TID [facility] Last Admin: 12/14/18 09:51 Dose: 100 mg Ferrous Gluconate (Fergon) 324 mg PO TID [facility] Last Admin: 12/14/18 09:51 Dose: 324 mg Heparin Sodium (Porcine) (Heparin) 5,000 units SC Q8 [facility]; Protocol Last Admin: 12/14/18 06:14 Dose: 5,000 units Dextrose (Dextrose 5% In Water 1000 Ml) 1,000 mls @ 0 mls/hr IV .Q0M PRN; Protocol PRN Reason: Hypoglycemia Protocol Insulin Human Lispro (Humalog Med) 0 units SC AC [facility]; Protocol Last Admin: 12/14/18 08:09 Dose: Not Given Insulin Human NPH (Humulin N) 17 units SC ACBD [facility] Last Admin: 12/14/18 08:31 Dose: Not Given Metoclopramide HCl (Reglan) 10 mg IV ONCE PRN PRN Reason: Nausea/Vomiting Midodrine (Proamatine) 10 mg PO TID [facility] Last Admin: 12/14/18 09:51 Dose: 10 mg Nystatin (Nystop Topical Powder) 0 gm TOP BID [facility] Last Admin: 12/14/18 09:52 Dose: 1 appl Ondansetron HCl (Zofran Inj) 4 mg IVP Q4H PRN PRN Reason: Nausea/Vomiting Pantoprazole Sodium (Protonix Ec Tab) 40 mg PO 0600 [facility] Last Admin: 12/14/18 06:17 Dose: 40 mg Polyethylene Glycol (Miralax) 17 gm PO BID [facility] Last Admin: 12/14/18 09:51 Dose: 17 gm Tamsulosin HCl (Flomax) 0.4 mg PO DAILY [facility] Last Admin: 12/14/18 09:51 Dose: 0.4 mg Vitamin B Complex/Vit C/Folic Acid (Nephro-Sumit) 1 tab PO 0800 [facility] Last Admin: 12/14/18 08:29 Dose: 1 tab - Labs Labs: 12/13/18 07:00 12/13/18 07:00 PT 12.6 SECONDS (9.4-12.5) H 12/10/18 13:10 INR 1.12 12/10/18 13:10 APTT 30.3 Seconds (26.9-38.3) 12/10/18 13:10
--- NOTE | 2018-12-14 11:42 | CP.PCM.PN ---
Subjective - Date & Time of Evaluation Date of Evaluation: 12/14/18 Time of Evaluation: 06:45 - Subjective Subjective: General Surgery Dr. 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 No acute events overnight. pt has no complaints this AM. pain well controlled. Objective - Vital Signs/Intake and Output Vital Signs (last 24 hours): Temp Pulse Resp BP Pulse Ox 98.5 F 94 H 18 112/73 97 12/14/18 07:00 12/14/18 07:00 12/14/18 07:00 12/14/18 07:00 12/14/18 07:00 - Medications Medications: Current Medications Acetaminophen (Tylenol 325mg Tab) 650 mg PO Q6 PRN PRN Reason: TEMP>=99.5F Last Admin: 12/12/18 22:42 Dose: 650 mg Acetaminophen (Tylenol 650 Mg Supp) 650 mg RC Q6H PRN PRN Reason: TEMP>=99.5F Dextrose (Dextrose 50% Inj) 0 ml IV STAT PRN; Protocol PRN Reason: Hypoglycemia Protocol Docusate Sodium (Colace) 100 mg PO TID [facility] Last Admin: 12/14/18 09:51 Dose: 100 mg Ferrous Gluconate (Fergon) 324 mg PO TID [facility] Last Admin: 12/14/18 09:51 Dose: 324 mg Heparin Sodium (Porcine) (Heparin) 5,000 units SC Q8 [facility]; Protocol Last Admin: 12/14/18 06:14 Dose: 5,000 units Dextrose (Dextrose 5% In Water 1000 Ml) 1,000 mls @ 0 mls/hr IV .Q0M PRN; Protocol PRN Reason: Hypoglycemia Protocol Insulin Human Lispro (Humalog Med) 0 units SC AC [facility]; Protocol Last Admin: 12/14/18 08:09 Dose: Not Given Insulin Human NPH (Humulin N) 17 units SC [facility] Last Admin: 12/14/18 08:31 Dose: Not Given Metoclopramide HCl (Reglan) 10 mg IV ONCE PRN PRN Reason: Nausea/Vomiting Midodrine (Proamatine) 10 mg PO TID [facility] Last Admin: 12/14/18 09:51 Dose: 10 mg Nystatin (Nystop Topical Powder) 0 gm TOP BID [facility] Last Admin: 12/14/18 09:52 Dose: 1 appl Ondansetron HCl (Zofran Inj) 4 mg IVP Q4H PRN PRN Reason: Nausea/Vomiting Pantoprazole Sodium (Protonix Ec Tab) 40 mg PO 0600 [facility] Last Admin: 12/14/18 06:17 Dose: 40 mg Polyethylene Glycol (Miralax) 17 gm PO BID [facility] Last Admin: 12/14/18 09:51 Dose: 17 gm Tamsulosin HCl (Flomax) 0.4 mg PO DAILY [facility] Last Admin: 12/14/18 09:51 Dose: 0.4 mg Vitamin B Complex/Vit C/Folic Acid (Nephro-Sumit) 1 tab PO 0800 [facility] Last Admin: 12/14/18 08:29 Dose: 1 tab - Labs Labs: 12/13/18 07:00 12/13/18 07:00 PT 12.6 SECONDS (9.4-12.5) H 12/10/18 13:10 INR 1.12 12/10/18 13:10 APTT 30.3 Seconds (26.9-38.3) 12/10/18 13:10 - Constitutional Appears: Non-toxic, No Acute Distress - Head Exam Head Exam: NORMAL INSPECTION - Eye Exam Eye Exam: Normal appearance - ENT Exam ENT Exam: Mucous Membranes Moist - Respiratory Exam Respiratory Exam: NORMAL BREATHING PATTERN. absent: Accessory Muscle Use, Respiratory Distress - Cardiovascular Exam Cardiovascular Exam: absent: Bradycardia, Tachycardia - GI/Abdominal Exam GI & Abdominal Exam: Soft. absent: Distended - Extremities Exam Additional comments: L knee immobilizer in place dressing c/d/i - Neurological Exam Neurological Exam: Alert, Awake - Psychiatric Exam Psychiatric exam: Normal Affect, Normal Mood - Skin Skin Exam: Dry, Intact, Normal Color, Warm Assessment and Plan - Assessment and Plan (Free Text) Assessment: 73 y/o M POD#4 s/p L BKA 2/2 chronic foot wound and osteomylitis Plan: - maintain knee immobilizer - cont pain management - PT/OT - cleared for discharge form surgical standpoint - cont BID dressing changes --> paint incision w/ betadine, cover w/ 4x4, and wrap w/ Krylex and lambert bandage Pt seen and discussed w/ Dr. Ian Strickland PGY3
--- NOTE | 2018-12-14 14:06 | CP.PCM.DIS ---
Provider - Provider Date of Admission: 11/16/18 15:06 Attending physician: Niranjan Ling MD Primary care physician: NO PRIMARY CARE PROVIDER Consults: 11/16/18 13:49 Infectious Disease Consult Routine Comment: Consulting Provider: Tai Landaverde Consulting Physician: Tai Landaverde Reason for Consult: LEFT FOOT ??OM 11/16/18 13:55 Podiatry Consult Stat Comment: Consulting Provider: Milton Heller Consulting Physician: Milton Heller Reason for Consult: ??LEFT OM 11/16/18 14:00 Diabetic Education Referral DAILY Comment: DIABETIC EDUCATION Physician Instructions: DIABETIC EDUCATION Reason For Exam: [facility] DM TCU [Evaluation for TRCU] DAILY Comment: TCU Physician Instructions: TCU Reason For Exam: TCU 11/16/18 14:19 Physician Consult Stat Comment: Consulting Provider: Milton Lujan Consulting Physician: Milton Lujan Reason for Consult: PAD/??OM LEFT FOOT 11/16/18 21:29 Case Management Referral Routine Comment: NEEDS ASSISTANCE AT HOME,WOUND CARE Physician Instructions: Reason For Exam: EVALUATION 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 Physician Instructions: Reason For Exam: EVALUATION 11/16/18 21:37 Nursing Referral for Wound Care Routine Comment: WOUND CARE/DIABETIC FOOT ULCER/CELLULITIS/OSTEOMYE Physician Instructions: Reason For Exam: EVALUATION 11/17/18 07:59 Cardiology Consult Routine Comment: Consulting Provider: Milton Murrell Consulting Physician: Milton Murrell Reason for Consult: CARDIOLOGY PRE-OP CLEARNCE 11/17/18 10:36 Nephrology Consult Routine Comment: Consulting Provider: Anjum Padron Consulting Physician: Anjum Padron Reason for Consult: CKD/??EMIL 11/17/18 11:37 Nursing Referral for Wound Care Routine Comment: Physician Instructions: Reason For Exam: sacral redness 11/17/18 14:00 Diabetic Education Referral DAILY Comment: DIABETIC EDUCATION Physician Instructions: DIABETIC EDUCATION Reason For Exam: [facility] DM TCU [Evaluation for TRCU] DAILY Comment: TCU Physician Instructions: TCU Reason For Exam: TCU 11/18/18 09:01 Gastroenterology Consult Routine Comment: Consulting Provider: Gómez Johnson Consulting Physician: Gómez Johnson Reason for Consult: ANEMIA 11/18/18 14:00 Diabetic Education Referral DAILY Comment: DIABETIC EDUCATION Physician Instructions: DIABETIC EDUCATION Reason For Exam: [facility] DM TCU [Evaluation for TRCU] DAILY Comment: TCU Physician Instructions: TCU Reason For Exam: TCU 11/19/18 14:00 Diabetic Education Referral DAILY Comment: DIABETIC EDUCATION Physician Instructions: DIABETIC EDUCATION Reason For Exam: [facility] DM TCU [Evaluation for TRCU] DAILY Comment: TCU Physician Instructions: TCU Reason For Exam: TCU 11/19/18 20:45 Diabetic Education Referral DAILY Comment: DIABETIC EDUCATION Physician Instructions: DIABETIC EDUCATION Reason For Exam: [facility] DM TCU [Evaluation for TRCU] DAILY Comment: TCU Physician Instructions: TCU Reason For Exam: TCU 11/20/18 14:00 Diabetic Education Referral DAILY Comment: DIABETIC EDUCATION Physician Instructions: DIABETIC EDUCATION Reason For Exam: [facility] DM TCU [Evaluation for TRCU] DAILY Comment: TCU Physician Instructions: TCU Reason For Exam: TCU 11/20/18 20:45 Diabetic Education Referral DAILY Comment: DIABETIC EDUCATION Physician Instructions: DIABETIC EDUCATION Reason For Exam: [facility] DM TCU [Evaluation for TRCU] DAILY Comment: TCU Physician Instructions: TCU Reason For Exam: TCU 11/21/18 14:00 Diabetic Education Referral DAILY Comment: DIABETIC EDUCATION Physician Instructions: DIABETIC EDUCATION Reason For Exam: [facility] DM TCU [Evaluation for TRCU] DAILY Comment: TCU Physician Instructions: TCU Reason For Exam: TCU 11/21/18 16:44 Vascular Surgery Routine Comment: Consulting Provider: Kain Sosa Physician Instructions: Reason For Exam: ???BKA 11/21/18 20:45 Diabetic Education Referral DAILY Comment: DIABETIC EDUCATION Physician Instructions: DIABETIC EDUCATION Reason For Exam: [facility] DM TCU [Evaluation for TRCU] DAILY Comment: TCU Physician Instructions: TCU Reason For Exam: TCU 11/22/18 14:00 Diabetic Education Referral DAILY Comment: DIABETIC EDUCATION Physician Instructions: DIABETIC EDUCATION Reason For Exam: [facility] DM TCU [Evaluation for TRCU] DAILY Comment: TCU Physician Instructions: TCU Reason For Exam: TCU 11/22/18 20:45 Diabetic Education Referral DAILY Comment: DIABETIC EDUCATION Physician Instructions: DIABETIC EDUCATION Reason For Exam: [facility] DM TCU [Evaluation for TRCU] DAILY Comment: TCU Physician Instructions: TCU Reason For Exam: TCU 11/23/18 14:00 Diabetic Education Referral DAILY Comment: DIABETIC EDUCATION Physician Instructions: DIABETIC EDUCATION Reason For Exam: [facility] DM TCU [Evaluation for TRCU] DAILY Comment: TCU Physician Instructions: TCU Reason For Exam: TCU 11/23/18 20:45 Diabetic Education Referral DAILY Comment: DIABETIC EDUCATION Physician Instructions: DIABETIC EDUCATION Reason For Exam: [facility] DM TCU [Evaluation for TRCU] DAILY Comment: TCU Physician Instructions: TCU Reason For Exam: TCU 11/24/18 08:11 Neurology Consult Routine Comment: DISORIENTATION/CONFUSION Consulting Provider: Wilmer Wills Consulting Physician: Wilmer Wills Reason for Consult: DISORIENTATION/CONFUSION 11/24/18 11:05 Nursing Referral for Wound Care Routine Comment: Physician Instructions: Reason For Exam: left foot ulcer 11/24/18 14:00 Diabetic Education Referral DAILY Comment: DIABETIC EDUCATION Physician Instructions: DIABETIC EDUCATION Reason For Exam: [facility] DM TCU [Evaluation for TRCU] DAILY Comment: TCU Physician Instructions: TCU Reason For Exam: TCU 11/24/18 20:45 Diabetic Education Referral DAILY Comment: DIABETIC EDUCATION Physician Instructions: DIABETIC EDUCATION Reason For Exam: [facility] DM TCU [Evaluation for TRCU] DAILY Comment: TCU Physician Instructions: TCU Reason For Exam: TCU 11/25/18 14:00 Diabetic Education Referral DAILY Comment: DIABETIC EDUCATION Physician Instructions: DIABETIC EDUCATION Reason For Exam: [facility] DM TCU [Evaluation for TRCU] DAILY Comment: TCU Physician Instructions: TCU Reason For Exam: TCU 11/25/18 20:45 Diabetic Education Referral DAILY Comment: DIABETIC EDUCATION Physician Instructions: DIABETIC EDUCATION Reason For Exam: [facility] DM TCU [Evaluation for TRCU] DAILY Comment: TCU Physician Instructions: TCU Reason For Exam: TCU 11/26/18 14:00 Diabetic Education Referral DAILY Comment: DIABETIC EDUCATION Physician Instructions: DIABETIC EDUCATION Reason For Exam: [facility] DM TCU [Evaluation for TRCU] DAILY Comment: TCU Physician Instructions: TCU Reason For Exam: TCU 11/26/18 14:30 Hematology Oncology Consult Routine Comment: Consulting Provider: Kahlil Aguila Consulting Physician: Kahlil Aguila Reason for Consult: elevated kappa/millie ratio, MGUS, 11/26/18 20:45 Diabetic Education Referral DAILY Comment: DIABETIC EDUCATION Physician Instructions: DIABETIC EDUCATION Reason For Exam: [facility] [Evaluation for TRCU] DAILY Comment: TCU Physician Instructions: TCU Reason For Exam: TCU 11/27/18 20:45 Diabetic Education Referral DAILY Comment: DIABETIC EDUCATION Physician Instructions: DIABETIC EDUCATION Reason For Exam: [facility] [Evaluation for TRCU] DAILY Comment: TCU Physician Instructions: TCU Reason For Exam: TCU 11/28/18 20:45 Diabetic Education Referral DAILY Comment: DIABETIC EDUCATION Physician Instructions: DIABETIC EDUCATION Reason For Exam: [facility] [Evaluation for TRCU] DAILY Comment: TCU Physician Instructions: TCU Reason For Exam: TCU 11/29/18 20:45 Diabetic Education Referral DAILY Comment: DIABETIC EDUCATION Physician Instructions: DIABETIC EDUCATION Reason For Exam: [facility] [Evaluation for TRCU] DAILY Comment: TCU Physician Instructions: TCU Reason For Exam: TCU Time Spent in preparation of Discharge (in minutes): 35 Hospital Course - Lab Results Lab Results: Micro Results 11/25/18 08:27 Toe Anaerobic Culture - Final NO ANAEROBES ISOLATED. 11/23/18 14:00 Blood Blood Culture - Final NO GROWTH AFTER 5 DAYS 11/23/18 14:00 Blood Gram Stain - Final TEST NOT PERFORMED 11/23/18 15:00 Blood Blood Culture - Final NO GROWTH AFTER 5 DAYS 11/23/18 15:00 Blood Gram Stain - Final TEST NOT PERFORMED 11/25/18 08:27 Other: Please Indicate Gram Stain - Final 11/25/18 08:27 Other: Please Indicate Wound Culture - Final Proteus Mirabilis Pseudomonas Aeruginosa 11/24/18 23:11 Urine,Clean Catch Urine Culture - Final No Growth (<1,000 CFU/ML) 11/16/18 16:15 Blood-Venous Blood Culture - Final NO GROWTH AFTER 5 DAYS 11/16/18 16:15 Blood-Venous Gram Stain - Final TEST NOT PERFORMED 11/16/18 16:15 Blood-Venous Blood Culture - Final NO GROWTH AFTER 5 DAYS 11/16/18 16:15 Blood-Venous Gram Stain - Final TEST NOT PERFORMED 11/16/18 13:10 Blood Blood Culture - Final NO GROWTH AFTER 5 DAYS 11/16/18 13:10 Blood Gram Stain - Final TEST NOT PERFORMED 11/16/18 12:40 Blood Blood Culture - Final NO GROWTH AFTER 5 DAYS 11/16/18 12:40 Blood Gram Stain - Final TEST NOT PERFORMED 11/16/18 12:40 Leg - Left Gram Stain - Final 11/16/18 12:40 Leg - Left Wound Culture - Final Pseudomonas Aeruginosa Beta Hemolytic Strep Group B 11/16/18 22:20 Urine,Random Urine Culture - Final No Growth (<1,000 CFU/ML) Most Recent Lab Values WBC 9.1 10^3/uL (4.5-11.0) 12/13/18 07:00 RBC 3.03 10^6/uL (3.5-6.1) L 12/13/18 07:00 Hgb 9.3 g/dL (14.0-18.0) L 12/13/18 07:00 Hct 29.1 % (42.0-52.0) L 12/13/18 07:00 MCV 96.0 fl (80.0-105.0) 12/13/18 07:00 MCH 30.7 pg (25.0-35.0) 12/13/18 07:00 MCHC 32.0 g/dl (31.0-37.0) 12/13/18 07:00 RDW 16.7 % (11.5-14.5) H 12/13/18 07:00 Plt Count 333 10^3/uL (120.0-450.0) 12/13/18 07:00 MPV 9.4 fl (7.0-11.0) 12/13/18 07:00 Neut % (Auto) 67.6 % (50.0-68.0) 12/13/18 07:00 Lymph % (Auto) 12.5 % (22.0-35.0) L 12/13/18 07:00 Cache % (Auto) 12.0 % (1.0-6.0) H 12/13/18 07:00 Eos % (Auto) 7.8 % (1.5-5.0) H 12/13/18 07:00 Baso % (Auto) 0.1 % (0.0-3.0) 12/13/18 07:00 Lymph # (Auto) 1.1 (1.2-3.4) L 12/13/18 07:00 Cache # (Auto) 1.1 (0.1-0.6) H 12/13/18 07:00 Eos # (Auto) 0.7 (0.0-0.7) 12/13/18 07:00 Baso # (Auto) 0.01 K/mm3 (0.0-2.0) 12/13/18 07:00 Absolute Neuts (auto) 6.15 (1.4-6.5) 12/13/18 07:00 ESR 122 mm/hr (0.00-15.0) H 11/16/18 12:40 Retic Count 1.33 % (0.5-1.5) 12/02/18 07:10 LAP Score Cancelled 11/24/18 07:30 PT 12.6 SECONDS (9.4-12.5) H 12/10/18 13:10 INR 1.12 12/10/18 13:10 APTT 30.3 Seconds (26.9-38.3) 12/10/18 13:10 Sodium 137 mmol/L (132-148) 12/13/18 07:00 Potassium 4.6 mmol/L (3.6-5.0) 12/13/18 07:00 Chloride 100 mmol/L (98-107) 12/13/18 07:00 Carbon Dioxide 27 mmol/L (21-33) 12/13/18 07:00 Anion Gap 14 (10-20) 12/13/18 07:00 BUN 36 mg/dL (7-21) H 12/13/18 07:00 Creatinine 1.9 mg/dl (0.8-1.5) H 12/13/18 07:00 Est GFR ( Amer) 42 12/13/18 07:00 Est GFR (Non-Af Amer) 35 12/13/18 07:00 POC Glucose (mg/dL) 210 mg/dL (65-110) H 12/14/18 11:27 Random Glucose 170 mg/dL (70-110) H 12/13/18 07:00 Hemoglobin A1c 8.6 % (4.2-6.5) H 11/17/18 07:00 Fructosamine 329 umol/L (190-270) H 11/16/18 16:15 Lactic Acid 1.6 mmol/L (0.7-2.1) 11/17/18 02:24 Uric Acid 6.8 mg/dL (3.5-8.5) 11/17/18 07:00 Calcium 8.5 mg/dL (8.4-10.5) 12/13/18 07:00 Phosphorus 3.4 mg/dL (2.5-4.5) 12/13/18 07:00 Magnesium 2.3 mg/dL (1.7-2.2) H 12/13/18 07:00 Iron 27 ug/dL (45-180) L 11/17/18 10:50 TIBC 199 ug/dL (261-462) L 11/17/18 10:50 % Saturation 13 % (20-55) L 11/17/18 10:50 Aleta Transferrin Receptr 1.49 mg/L (0.76-1.76) 11/17/18 10:50 Erythropoietin 12.6 mIU/mL (2.6-18.5) 11/17/18 10:50 Ferritin 593.0 ng/mL 11/17/18 10:50 Total Bilirubin 0.6 mg/dL (0.2-1.3) 12/13/18 07:00 Direct Bilirubin 0.3 mg/dL (0.0-0.4) 12/13/18 07:00 AST 37 U/L (17-59) 12/13/18 07:00 ALT 26 U/L (7-56) 12/13/18 07:00 Alkaline Phosphatase 82 U/L (38-126) 12/13/18 07:00 Alk Phos Iso-Intestine 0 % (1-24) L 12/02/18 07:10 Alk Phos Iso-Bone 28 % (28-66) 12/02/18 07:10 Alk Phos Iso-Liver 72 % (25-69) H 12/02/18 07:10 Alk Phos Iso-Placenta 0 % (<=0) 12/02/18 07:10 Alk Phos Iso-Renal 0 % (<=0) 12/02/18 07:10 C-React Prot High Sens > 15.00 mg/L (1.00-3.00) H 11/16/18 16:15 Total Protein 6.4 g/dL (5.8-8.3) 12/13/18 07:00 Albumin 3.2 g/dL (3.0-4.8) 12/13/18 07:00 Globulin 3.2 gm/dL 12/13/18 07:00 Albumin/Globulin Ratio 1.0 (1.1-1.8) L 12/13/18 07:00 Triglycerides 224 mg/dL (35-160) H 11/17/18 07:00 Cholesterol 103 mg/dL (130-200) L 11/17/18 07:00 LDL Cholesterol Direct 45 mg/dL (0-129) 11/17/18 07:00 HDL Cholesterol 18 mg/dL (29-60) L 11/17/18 07:00 Vitamin B12 > 1000 pg/mL (239-931) H 11/24/18 08:00 25-OH Vitamin D Total 41.4 NG/ML (30.0-100.0) 11/17/18 07:00 Folate > 20.0 ng/mL 11/24/18 08:00 Free T4 1.83 ng/dL (0.78-2.19) 11/24/18 08:00 Thyroxine (T4) 6.0 ug/dL (5.5-11.0) 11/24/18 08:00 TSH 3rd Generation 1.25 mIU/mL (0.46-4.68) 11/24/18 08:00 PTH Intact Whole Molec 41 pg/mL (14-64) 11/17/18 07:00 Urine Color Yellow (YELLOW) 12/12/18 06:32 Urine Appearance Sl cloudy (CLEAR) 12/12/18 06:32 Urine pH 6.0 (4.7-8.0) 12/12/18 06:32 Ur Specific Arnot 1.015 (1.005-1.035) 12/12/18 06:32 Urine Protein 30 mg/dL (<30 mg/dL) H 12/12/18 06:32 Urine Glucose (UA) Negative mg/dL (NEGATIVE) 12/12/18 06:32 Urine Ketones Negative mg/dL (NEGATIVE) 12/12/18 06:32 Urine Blood Moderate (NEGATIVE) H 12/12/18 06:32 Urine Nitrate Negative (NEGATIVE) 12/12/18 06:32 Urine Bilirubin Negative (NEGATIVE) 12/12/18 06:32 Urine Urobilinogen 0.2 E.U./dL (<1 E.U./dL) 12/12/18 06:32 Ur Leukocyte Esterase Negative Garrett/uL (NEGATIVE) 12/12/18 06:32 Urine RBC 1 - 3 /hpf (0-2) H 12/12/18 06:32 Urine WBC 0 - 2 /hpf (0-6) 12/12/18 06:32 Ur Epithelial Cells 0 - 2 /hpf (0-5) 12/12/18 06:32 Urine Bacteria Few /hpf (NONE) 11/23/18 22:10 Stool Occult Blood Negative (NEGATIVE) 11/21/18 10:00 Tot Beck[place]eyer/Lambda Ratio 3.67 (1.29-2.55) H 11/18/18 08:00 Beck[place]eyer Light Chain Anal 319 mg/dL (176-443) 11/18/18 08:00 Lambda Light Chain Anal 87 mg/dL (91-240) L 11/18/18 08:00 RPR Nonreactive (NONREACTIVE) 11/24/18 08:13 Lyme Disease Screen <0.90 index 11/24/18 08:12 Lyme IgG 18 kDa Band Nonreactive 11/24/18 08:12 Lyme IgG 23 kDa Band Nonreactive 11/24/18 08:12 Lyme IgG 28 kDa Band Nonreactive 11/24/18 08:12 Lyme IgG 30 kDa Band Nonreactive 11/24/18 08:12 Lyme IgG 39 kDa Band Nonreactive 11/24/18 08:12 Lyme IgG 41 kDa Band Reactive H 11/24/18 08:12 Lyme IgG 45 kDa Band Nonreactive 11/24/18 08:12 Lyme IgG 58 kDa Band Nonreactive 11/24/18 08:12 Lyme IgG 66 kDa Band Nonreactive 11/24/18 08:12 Lyme IgG 93 kDa Band Nonreactive 11/24/18 08:12 Lyme IgG W Blot Interp Negative (Negative) 11/24/18 08:12 Lyme IgM 23 kDa Band Nonreactive 11/24/18 08:12 Lyme IgM 39 kDa Band Nonreactive 11/24/18 08:12 Lyme IgM 41 kDa Band Nonreactive 11/24/18 08:12 Lyme IgM W Blot Interp Negative (Negative) 11/24/18 08:12 WB Flow Cytometry Reference test 12/01/18 07:00 Blood Type O POSITIVE 12/10/18 13:10 Antibody Screen Negative 12/10/18 13:10 Crossmatch See Detail 12/10/18 13:10 BBK History Checked Patient has bt 12/10/18 13:10 - Hospital Course Hospital Course: Mr. Mary is a 73 year old male with a PMH of PAD s/p 2nd left toe amputation (09/2017), DM2, CHFrEF, gout and arthritis who presented for left foot pain for two months due to a non healing left foot wound with findings consistent with chronic osteomyelitis. Surgery was consulted and performed debridement of left foot wound, left great toe ray amputation, 2nd metatarsal amputation, drainage of abscess, removal of 3rd anf 4th toenails. The patient was kept on IV antibiotics by ID and the patient's wound healing was monitored. Due to poor wound healing and circulation issues, the patient ultimately needed a left BKA, which was performed in the latter 1/2 of the patient's hospital course. He was also managed for EMIL on CKD and his DM II. See Dr. Ling's discharge summary for complete details of the patient's hospital colurse. He was discharged with the below written instruction, prescriptions, and recommendations. Discharge Exam - Head Exam Head Exam: NORMAL INSPECTION - Eye Exam Eye Exam: EOMI, Normal appearance - ENT Exam ENT Exam: Mucous Membranes Moist - Neck Exam Neck exam: Normal Inspection - Respiratory Exam Respiratory Exam: Clear to PA & Lateral, NORMAL BREATHING PATTERN - Cardiovascular Exam Cardiovascular Exam: RRR, +S1, +S2 - GI/Abdominal Exam GI & Abdominal Exam: Normal Bowel Sounds - Extremities Exam Additional comments: left BKA - Neurological Exam Neurological exam: Alert, CN II-XII Intact, Oriented x3 - Psychiatric Exam Psychiatric exam: Normal Affect, Normal Mood - Skin Skin Exam: Dry, Intact, Normal Color, Warm Discharge Plan - Discharge Medications Prescriptions: Levalbuterol [Xopenex] 0.63 mg IH TID PRN #30 neb PRN Reason: Shortness Of Breath - Follow Up Plan Condition: STABLE Disposition: REHAB FACILITY/REHAB UNIT Instructions: Preventing Falls in the Older Adult, Opioids for Short-Term Treatment of Pain, Oxycodone and Acetaminophen, Pneumococcal Polysaccharide Vaccine (23-Valent), Amputation, [id number] (DC), Weaning Patients Off of Pain Drugs Additional Instructions: MAY DISCHARGE TO [facility]/ACUTE REHAB UNDER SERVICE AFTER CLEARED BY SURGERY DISCHARGE MEDS PER UPDATED AMBULATORY ORDERS AND MAR OF DAY OF DISCHARGE. FOLLOW UP UPON DISCHARGE Referrals: Niranjan Ling MD [Staff Provider] - 1 Week (NOVEMBER DISCHARGE TO [facility]/ACUTE REHAB UNDER SERVICE AFTER CLEARED BY SURGERY DISCHARGE MEDS PER UPDATED AMBULATORY ORDERS AND MAR OF DAY OF DISCHARGE. FOLLOW UP UPON DISCHARGE )
[2018-12-14 16:45] VITALS: BP 105/65; PULSE 95; TEMP 99.1; O2SAT 97
--- NOTE | 2018-12-14 22:33 | PN ---
DATE: 12/14/2018 SUBJECTIVE: The patient is in bed, in no acute distress, was seen earlier today in 572, bed 1. No fevers or chills. PHYSICAL EXAMINATION: VITAL SIGNS: Temperature is 98, blood pressure is 105/60, respiratory rate of 18, heart rate of 95. HEENT: Unremarkable. NECK: Supple. LUNGS: Have decreased breath sounds. HEART: Normal S1, S2. ABDOMEN: Soft. LABORATORY DATA: Reveals a white count of 9.1, hemoglobin of 9. Urinalysis is noted and serology is noted. Microbiology is reviewed. ASSESSMENT AND PLAN: This is a 73-year-old male with a left second metatarsal amputation, postprocedure day #21, Charcot's foot with Pseudomonas and Proteus, status post left below-knee amputation postop day #4. Off of antibiotics. Afebrile. Tai Landaverde MD
--- NOTE | 2018-12-15 00:36 | DS ---
FINAL PROGRESS NOTE AND DISCHARGE SUMMARY HOSPITAL COURSE: The patient is in room 572, bed 1. Overnight events and notes were reviewed. The patient's discharge was postponed till today after surgical evaluation because surgery attending requested the patient to be continued for another 24 hours for wound management and wound care. Overnight nurse's notes were reviewed. The patient was found to be episodically confused and picking on the left foot dressing and left foot stump. PHYSICAL EXAMINATION VITAL SIGNS: T-max 98.4, heart rate 94, blood pressure 112/73, respiration 18, and O2 sat 97%. HEENT: The patient's head examination normocephalic, atraumatic. HEENT examination shows pinkish pale conjunctivae. Anicteric sclerae. No oropharyngeal lesion. NECK: No neck rigidity. CHEST: Kyphosis. LUNGS: No audible crackle, rales or wheezing. CARDIOVASCULAR: S1, S2, regular rhythm. Positive systolic murmur left sternal border, right second intercostal space, left second intercostal space. ABDOMEN: Soft. Positive bowel sounds. GENITALIA: Male. Positive Lane catheter. EXTREMITIES: Positive left below-knee amputation. MUSCULOSKELETAL: As per the body mass index. NEUROLOGIC: The patient is alert, awake, responsive, is able to move upper extremity and right lower extremity and left lower extremity which is a left below-knee amputation. NEUROLOGIC: Cranial nerves II through XII limited. Gait examination is not tested. PSYCHIATRIC: Negative for anxiety or depression. Negative for auditory or visual hallucination. Negative for suicidal or homicidal ideation. DIAGNOSTICS: None from today. IMPRESSION AND PLAN 1. Left foot great toe Proteus mirabilis, Pseudomonas aeruginosa and corynebacterium and group B Streptococcus acute osteomyelitis of the left foot, left great toe and gangrene. 2. Acute osteomyelitis of the left foot and left foot great toe. 3. Severe peripheral vascular disease of the lower extremity with ankle-brachial index of less than 1. 4. Diabetic foot disease. 5. Status post left below-knee amputation. 6. Anemia. 7. Status post packed red blood cell transfusion x3. 8. Acute kidney injury and underlying hypertensive diabetic chronic kidney disease stage 3. 9. Uncontrolled insulin-requiring diabetes mellitus with hyperglycemia and elevated hemoglobin A1c and fructosemia. 10. Hyperuricemia. 11. Delirium. 12. Transient confusional and disorientation state secondary to underlying multiple comorbidities and toxic metabolic encephalopathy. 13. Fever. 14. Tachycardia. 15. Hypotension. 16. 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 17. Dilated cardiomyopathy with left ventricular ejection fraction of 35%. 18. Severe mitral and tricuspid regurgitation. 19. Gait dysfunction. 20. Deconditioning. 21. 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 22. Acute osteomyelitis of the left foot and left lower extremity. 23. History of hypertension. 24. History of hyperuricemia and gout. 25. History of poor compliance. 26. Constipation. 27. Iron deficiency. 28. Prostatic hypertrophy. 29. Hypovitaminosis D. 30. Hyperlipidemia. 31. Peripheral vascular disease. 1. Proteus mirabilis, Pseudomonas aeruginosa, beta hemolytic Streptococcus group B left foot left great toe acute osteomyelitis with gangrenous necrosis and gouty tophi. 2. Persistent refractory slow resolving leukocytosis and granulocytosis. 3. High-grade fever. 4. Tachycardia. 5. Hypotension. 6. Status post left below-knee amputation secondary to left chronic foot and toe wound and osteomyelitis. 7. Status post left great toe amputation and second metatarsal amputation and third and fourth toe removal toenail removal. 8. Anemia. 9. Status post packed red blood cell transfusion x3. 10. Slow resolving persistent leukocytosis. 11. Elevated erythrocyte sedimentation rate of 122 12. Acute kidney injury with underlying chronic kidney disease stage III/IV. 13. Mild hyperalbuminemia and mild protein malnutrition. 14. Hyperphosphatemia. 15. Severe peripheral vascular disease of the lower extremity with ankle-brachial index of less than 1. 16. Elevated C-reactive protein of greater than 15. 17. Proteinuria, microscopic hematuria, bacteriuria. 18. 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 19. Gait dysfunction. 20. Deconditioning. 21. 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 22. Dilated cardiomyopathy with severe mitral, tricuspid regurgitation. Ejection fraction of 35%. 23. Delirium versus transient confusional and disorientation state. 24. Constipation. 25. Iron-deficiency. 26. Prostatic hypertrophy. 27. Insulin-requiring diabetes mellitus. 28. Hypotension. 1. Proteus mirabilis, Pseudomonas aeruginosa and beta hemolytic Streptococcus group B left foot great toe osteomyelitis and acute osteomyelitis. 2. High-grade fever. 3. Tachycardia. 4. Hypotension. 5. Dilated cardiomyopathy. 6. Left ventricular ejection fraction of 35%. 7. Pulmonary hypertension with right ventricular systolic pressure of 40 mmHg. 8. Moderately impaired left ventricular systolic function and global left ventricular hypokinesis. 9. [id number] mitral and [id number]-[id number] tricuspid regurgitation. 10. Gait dysfunction. 11. Deconditioning. 12. Persistent refractory leukocytosis with granulocytosis. 13. Elevated erythrocyte sedimentation rate of 122. 14. Acute kidney injury with underlying hypertensive diabetic chronic kidney disease stage 4. 15. Uncontrolled diabetes mellitus with hemoglobin A1c of 8.6 and fructosamine of 329. 16. Lactic acidosis. 17. Hyperphosphatemia. 18. Proteinuria, microscopic hematuria, bacteriuria. 19. 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 20. Anemia with decreasing hemoglobin and hematocrit and status post packed red blood cell transfusion x3. 21. Episodic confusion and confusional state. 22. Chronic microvascular ischemic disease of the brain with cerebral cortical atrophy of the brain. 23. Left foot great toe acute osteomyelitis with gangrenous necrosis and gouty tophi. 24. Left anterior hemiblock. 25. Status post left foot great toe amputation, second metatarsal amputation and third and fourth toe toenail removal and wound debridement. 26. History of poor compliance and noncompliance. 27. Severe peripheral vascular disease of the lower extremity with ankle-brachial indexes of less than 1 and bilateral popliteal trifurcation and tibial disease. 1. Pseudomonas aeruginosa, Proteus mirabilis and beta-hemolytic Streptococcus group B acute osteomyelitis of the left foot toe with gangrenous necrosis and gouty tophi. 2. Left foot diabetic foot ulceration. 3. Status post left foot great toe amputation and second metatarsal amputation and left foot second, third and fourth toe removal and wound debridement. 4. Tachycardia. 5. Hypertension. 6. Persistent refractory leukocytosis with granulocytosis. 7. Normocytic anemia. 8. Uncontrolled insulin-requiring diabetes mellitus with hyperglycemia. 9. Acute kidney injury with chronic kidney disease stage 4. 10. Proteinuria, microscopic hematuria, bacteriuria. 11. 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 12. Status post packed red blood cell transfusion x3. 13. Dilated cardiomyopathy with ejection fraction of 35% to 40%. 14. Acute kidney injury with underlying hypertensive diabetic chronic kidney disease stage 3. 15. Anemia. 16. Mitral and tricuspid regurgitation. 1. Osteomyelitis of the left foot great toe and left foot with gangrenous necrosis and gouty tophi. 2. Severe bilateral lower extremity peripheral vascular disease with ankle-brachial index of less than 1. 3. Uncontrolled type 2 diabetes mellitus with hyperglycemia and elevated hemoglobin A1c and fructosaminemia. 4. History of hypertension. 5. Tachycardia. 6. High-grade fever. 7. History of hyperuricemia and gouty arthritis. 8. Questionable monoclonal gammopathy of unknown significance with elevated kappa lambda issue. 9. Gait dysfunction. 10. Deconditioning with gait dysfunction with nonweightbearing status of the left foot and left lower extremity. 11. Leukocytosis with granulocytosis. 12. Persistent refractory leukocytosis with granulocytosis. 13. Anemia with decreasing hemoglobin/hematocrit status post packed red blood cell transfusion x3. 14. Transient confusional state and disorientation, questionable delirium versus toxic metabolic encephalopathy secondary to underlying medical problems. 15. Dilated cardiomyopathy with ejection fraction of 35%. 16. [id number] mitral and tricuspid regurgitation. 17. Acute kidney injury with underlying hypertensive diabetic chronic kidney disease. 18. Hyperphosphatemia. 19. Questionable secondary hyperparathyroidism with hyperphosphatemia. 20. Gait dysfunction. 1. Acute left foot, left second toe osteomyelitis with gangrenous necrosis and gouty tophi. 2. Severe peripheral vascular disease of the lower extremity. 3. Status post left foot great toe amputation and metatarsal amputation. 4. Status post left foot wound debridement. 5. Status post left foot second and third toe nail removal. 6. Uncontrolled insulin-requiring diabetes mellitus with hyperglycemia. 7. Left foot diabetic foot ulceration and cellulitis and acute osteomyelitis. 8. Persistent refractory leukocytosis with granulocytosis. 9. Normocytic anemia, status post packed red blood cell transfusion x3. 10. Acute kidney injury with underlying hypertensive diabetic chronic kidney disease stage III. 11. History of hyperuricemia and gout. 12. Gait dysfunction. 13. Delirium with episodic and transient confusional and disorientation state versus delirium. 14. Possible underlying toxic metabolic encephalopathy secondary to multiple comorbidities and medical comorbidities. 15. History of hypertension. 16. History of cardiomyopathy with left ventricular ejection fraction of 35%. 17. Questionable and possible monoclonal gammopathy of unknown significance. 18. Deconditioning. 19. Hypotension. 1. Left foot great toe and left foot acute osteomyelitis secondary to Pseudomonas aeruginosa, Proteus mirabilis and beta hemolytic group B strep. 2. Severe peripheral vascular disease of the lower extremity. 3. Refractory slow resolving leukocytosis with granulocytosis. 4. Normocytic anemia with decreasing hemoglobin and hematocrit. 5. Status post packed red blood cell transfusion. 6. Uncontrolled diabetes mellitus with hyperglycemia and elevated hemoglobin A1c. 7. Severe peripheral vascular disease of the lower extremity. 8. Acute kidney injury with underlying hypertensive diabetic chronic kidney disease. 9. Normocytic anemia, status post packed red blood cell transfusion x2. 10. Gouty tophi and history of gouty arthritis and hyperuricemia. 11. History of hypertension. 12. Presently hypotension. 13. Tachycardia. 14. Dilated cardiomyopathy with left ventricle ejection fraction around 35%. 15. Severe tricuspid and mitral regurgitation. 16. History of severe noncompliance and poor compliance. 17. Severe peripheral vascular disease. 18. Gait dysfunction. 19. Deconditioning. 20. Transient confusional state versus delirium versus encephalopathy secondary to underlying multiple comorbidity. 21. Gait dysfunction with nonweightbearing status of the left foot. 22. Status post left foot great toe amputation and metatarsal amputation and debridement of the left foot wound and removal of the left foot second and third toe. 1. Left foot great toe and left foot acute osteomyelitis. 2. Non-hemolyzed hyperkalemia. 3. Acute kidney injury and underlying hypertensive/diabetic chronic kidney disease stage 3/4. 4. Leukocytosis with granulocytosis. 5. Anemia. 6. Status post packed red blood cell transfusion x3. 7. Transient confusional state with possible delirium and toxic metabolic encephalopathy. 8. Hypotension. 9. Tachycardia. 10. High-grade fever. 11. Diabetic ulceration of the left foot with acute osteomyelitis of the left foot and toe. 12. Severe peripheral vascular disease of the lower extremity. 13. History of hypertension. 14. History of type 2 diabetes mellitus. 15. History of peripheral vascular disease. 16. History of hyperuricemia and gout. 17. History of [id number] diabetes mellitus. 18. History of poor compliance and noncompliance. 1. Left foot great toe acute osteomyelitis with gangrenous necrosis and gouty tophi. 2. Status post left foot debridement and amputation of the left foot great toe and second metatarsal amputation. 3. Status post debridement of the left foot diabetic foot ulceration and removal of the left foot third and fourth toe nails. 4. Fever. 5. Tachycardia. 6. Persistent leukocytosis with granulocytosis. 7. Normocytic anemia. 8. Status post packed red blood cell transfusion x3. 9. Elevated erythrocyte sedimentation rate of 122. 10. Uncontrolled diabetes mellitus with hyperglycemia and hypoglycemia with hemoglobin A1c of 8.6 and fructosamine of 329. 11. Acute kidney injury with underlying chronic kidney disease stage 3/4. 12. Proteinuria, microscopic hematuria, bacteriuria. 13. 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 14. Proteus mirabilis, Pseudomonas aeruginosa,and beta-hemolytic Streptococcus group B left foot diabetic foot ulceration and acute osteomyelitis. 15. Gait dysfunction. 16. Deconditioning with nonweightbearing status of the left foot. 17. Sepsis with Pseudomonas aeruginosa, Proteus mirabilis and group B Streptococcal left foot acute osteomyelitis, cellulitis and diabetic foot ulceration. 18. Questionable delirium versus toxic metabolic encephalopathy. 19. Constipation. 20. Iron deficiency. 21. Prostatic hypertrophy. 22. Hyperuricemia and gouty arthritis. 23. Hypotension. 1. Left foot great toe acute osteomyelitis with gangrenous necrosis and gouty tophi. 2. Status post left foot debridement and amputation of the left foot great toe and second metatarsal. 3. Status post debridement of the left foot and removal of the left foot third and fourth toe nails. 4. Fever. 5. Tachycardia. 6. Hypotension. 7. Persistent refractory leukocytosis with granulocytosis. 8. Elevated erythrocyte sedimentation rate 222. 9. Acute kidney injury with underlying chronic kidney disease stage III to IV. 10. Uncontrolled insulin-requiring diabetes mellitus with hemoglobin A1c of 8.6 and fructosamine of 329. 11. Lactic acidosis. 12. Elevated C-reactive protein of greater than 15. 13. Hypertriglyceridemia. 14. Decreased HDL of 18. 15. Questionable iron deficiency. 16. Questionable delirium with episodic forgetfulness and disorientation versus toxic metabolic encephalopathy. 17. Proteinuria, microscopic hematuria, and bacteriuria. 18. Questionable monoclonal gammopathy of unknown significance with elevated total kappa/lambda ratio. 19. Left foot great toe Proteus mirabilis, Pseudomonas aeruginosa, and beta hemolytic strep group B osteomyelitis and diabetic foot ulceration. 20. Status post packed red blood cell transfusion x3. 21. Gait dysfunction. 22. Deconditioning. 23. History of gout and hyperuricemia. 24. Acute kidney injury with underlying hypertensive and diabetic chronic kidney disease stage III/IV. 25. Severe mitral and tricuspid regurgitation with systolic congestive heart failure, left ventricle ejection fraction of 35% to 40%. 26. Encephalopathy. 27. Constipation. 28. Prostatic hypertrophy. 1. Acute osteomyelitis of the left foot great toe. 2. Episodic confusion, forgetfulness and disorientation, etiology unclear, questionable delirium versus encephalopathy. 3. Persistent leukocytosis. 4. 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 5. Status post left foot great toe amputation and fifth metatarsal left foot great toe amputation and metatarsal amputation. 6. 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 7. Uncontrolled diabetes mellitus with hypoglycemia. 8. Recurrent high-grade fever. 9. High-grade fever. 10. Tachycardia. 11. Hypotension. 12. History of dilated cardiomyopathy, etiology undetermined. 13. Normocytic anemia, status post packed red blood cell transfusion x3. 14. Persistent refractory leukocytosis with granulocytosis. 15. Uncontrolled diabetes mellitus with hyperglycemia and episodic hypoglycemia. 16. Left foot diabetic foot ulceration and left foot great toe acute osteomyelitis. 17. Severe peripheral vascular disease of the lower extremity. 18. Gait dysfunction. 19. Deconditioning. 20. Noncompliance. 21. History of hypertension, hyperuricemia and gout. 22. Possible monoclonal gammopathy of unknown significance with elevated kappa lambda ratio. 1. Left foot great toe acute osteomyelitis and gangrenous necrosis with gouty tophi with acute gangrenous necrosis and acute osteomyelitis. 2. High-grade fever. 3. Tachycardia. 4. Hypotension. 5. Proteus mirabilis, Pseudomonas aeruginosa and beta hemolytic streptococcus group B left foot great toe osteomyelitis, diabetic foot ulceration and cellulitis. 6. Severe peripheral vascular disease. 7. Refractory leukocytosis. 8. Granulocytosis. 9. Elevated erythrocyte sedimentation rate of 122. 10. Normocytic anemia. 11. Status post packed red blood cell transfusion x3. 12. Uncontrolled insulin-requiring diabetes mellitus with hyperglycemia and hemoglobin A1c of 8.6 and fructosamine of 329. 13. Gait dysfunction secondary to nonweightbearing status of the left foot and toe. 14. Deconditioning. 15. Questionable delirium. 16. Iron-deficiency. 17. Hypertriglyceridemia with decreased high-density lipoprotein. 18. Lactic acidosis. 19. Elevated C-reactive protein no greater than 15. 20. Acute kidney injury with underlying chronic kidney disease, stage 3/4. 21. Proteinuria. 22. Microscopic hematuria, pyuria, bacteriuria. 23. Questionable monoclonal gammopathy of unknown significance with elevated kappa to lambda ratio. 24. Status post left foot great toe amputation and second metatarsal amputation and removal of the third and fourth toe nail and wound debridement. 25. Hypertensive diabetic chronic kidney disease. 26. Severe mitral regurgitation with systolic congestive heart failure and cardiomyopathy with ejection fraction of 35%. 27. Monoclonal gammopathy of unknown significance. 28. Episodic confusion and disorientation. 29. Constipation. 30. Insulin-requiring diabetes mellitus. 31. Hypertension. 1. 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 2. Recurrent fever. 3. Tachycardia. 4. Hypertension. 5. Persistent refractory leukocytosis. 6. Normocytic anemia. 7. Status post packed red blood cell transfusion x3. 8. Reactive thrombocytosis. 9. Granulocytosis. 10. Acute kidney injury with chronic kidney disease stage 4. 11. Status post left foot left great toe amputation and metatarsal amputation. 12. Status post left foot second and third toe removal. 13. Left foot wound debridement. 14. Severe peripheral vascular disease. 15. Uncontrolled diabetes mellitus with hyperglycemia and elevated hemoglobin A1c. 16. Transitional confusional and disorientation state. 17. Possible delirium versus toxic metabolic encephalopathy. 18. Hypotension. 1. Pseudomonas aeruginosa, Proteus mirabilis and beta hemolytic group B Streptococcus, left foot diabetic ulceration and gangrene. 2. Status post status post left foot great toe amputation and metatarsal amputation. 3. Status post removal of the second and third toe nail. 4. Status post left foot wound debridement. 5. Severe peripheral vascular disease of the lower extremity with ankle-brachial indexes of less than 1. 6. History of chronic osteomyelitis of the left foot. 7. Normocytic anemia. 8. Refractory leukocytosis, slow resolving. 9. Reactive thrombocytosis. 10. Leukocytosis with granulocytosis. 11. Status post packed red blood cell transfusion x3. 12. Hypertensive and diabetic chronic kidney disease stage III. 13. Uncontrolled diabetes mellitus with hyperglycemia and elevated hemoglobin A1c. 14. Deconditioning. 15. Gait dysfunction. 16. Questionable delirium versus encephalopathy versus transient confusional and disorientation state. 17. History of hyperuricemia and gout. 18. History of poor compliance, noncompliance. 19. Tachycardia. 20. High-grade fever. 21. Transient hypotension. 22. Dilated cardiomyopathy with left ventricular ejection fraction of 35%. 23. Severe mitral and tricuspid regurgitation. 24. Severe peripheral vascular disease of the lower extremity. 1. Sepsis, secondary to left foot diabetic foot ulceration secondary to Proteus mirabilis, Pseudomonas aeruginosa, beta hemolytic group B strep. 2. High-grade fever. 3. Tachycardia. 4. Episodic hypotension. 5. Leukocytosis with granulocytosis. 6. Acute kidney injury with underlying chronic kidney disease stage 4. 7. Uncontrolled non-insulin requiring diabetes mellitus with hyperglycemia and elevated hemoglobin A1c and elevated fructosamine of 329. 8. Episodic disorientation and confusion, possible questionable delirium versus toxic metabolic encephalopathy. 9. Proteinuria, microscopic hematuria, bacteriuria. 10. Monoclonal gammopathy, of unknown significance. 11. Metabolic acidosis. 12. Hypertensive, diabetic, chronic kidney disease stage 3. 13. Severe mitral, tricuspid regurgitation with systolic congestive heart failure and cardiomyopathy with ejection fraction of 35%. 14. Left foot grade 2 amputation, second metatarsal amputation, and third and fourth toe toenail removal and wound debridement. 15. Cardiomyopathy. 16. Severe peripheral vascular disease of the lower extremity. 17. Persistent refractory leukocytosis. 18. Chronic microvascular ischemic disease of the brain and cerebral cortical atrophy of the brain. 19. Gait dysfunction. 20. Deconditioning. 21. Transient confusion state secondary to transient cerebral hypoperfusion and hyperglycemic fluctuations. 1. Status post left foot great toe amputation and second metatarsal amputation and third and fourth digit toenail removal and left foot wound debridement, postop day #1. 2. Chronic nonhealing left foot diabetic foot ulceration and possible gangrene. 3. Fever. 4. Tachycardia. 5. Hypotension. 6. Persistent refractory leukocytosis with granulocytosis. 7. Normocytic anemia, status post packed red blood cell transfusion x3. 8. Uncontrolled diabetes mellitus with hyperglycemia and elevated hemoglobin A1c of 8.6. 9. Hyper fructosemia. 10. Lactic acidosis. 11. Hyperuricemia. 12. Possible iron-deficiency. 13. Elevated C-reactive protein of greater than 15. 14. Hypertriglyceridemia. 15. Proteinuria. 16. Microscopic hematuria. 17. Bacteriuria. 18. Elevated total kappa lambda ratio. 19. Pseudomonas aeruginosa and beta hemolytic strep group B left foot diabetic foot ulceration. 20. Status post packed red blood cell transfusion x3. 21. Left foot cellulitis. 22. Chronic microvascular ischemic disease of the brain and cerebral cortical atrophy of the brain. 23. Sepsis with Pseudomonas aeruginosa and group B Streptococcus beta hemolytic Streptococcus left foot diabetic foot ulcerations and cellulitis. 24. Kidney injury with underlying chronic kidney disease. 25. Hypertensive diabetic chronic kidney disease. 26. Stage III chronic kidney disease secondary to hypertension and vasculopathy. 27. Anemia. 28. Monoclonal gammopathy of unknown significance. 29. Transient and episodic confusion and disorientation, probably secondary to transient cerebral hypoperfusion and uncontrolled diabetes mellitus. 30. Sepsis. 1. Group B Streptococcus and Pseudomonas aeruginosa, left foot diabetic foot ulceration and gangrene and cellulitis. 2. History of chronic osteomyelitis of the left foot. 3. High-grade fever. 4. Questionable sepsis versus systemic inflammatory response syndrome. 5. Tachycardia. 6 Hypotension. 7. Questionable and possible encephalopathy versus toxic metabolic encephalopathy with episodic confusion and disorientation. 8. Type 2 diabetes mellitus. 9. Anemia of chronic disease. 10. Status post packed red blood cell transfusion x2. 11. Gait dysfunction. 12. Deconditioning. 13. Status post left foot big toe amputation,2nd metatarsal amputation, wound debridement and 3rd and 4th toe nail removal. 14. Persistent refractory leukocytosis with granulocytosis 15. Normocytic anemia. 16. Uncontrolled type 2 diabetes mellitus with hyperglycemia. 17. Microvascular ischemic disease of the brain. 18. Cerebral cortical atrophy of the brain. 19. Gait dysfunction with nonweightbearing status of the left foot. 20. Severe peripheral vascular disease of the lower extremity with severe bilateral tibial and distal lower extremities severe occlusive disease with ankle-brachial index is of less than 1. 21. History of hypertension. 22. History of gout and hyperuricemia. 23. History of gouty arthritis. 24. Dilated cardiomyopathy with ejection fraction of 35% with severe mitral and tricuspid regurgitation. 25. Acute kidney injury with underlying chronic kidney disease stage III. 26. Proteinuria and microscopic hematuria. 1. High-grade fever and new fever. 2. Tachycardia. 3. Hypotension. 4. Questionable sepsis versus systemic inflammatory response syndrome with high-grade fever, tachycardia, hypotension. 5. Persistent refractory leukocytosis with granulocytosis. 6. Normocytic anemia. 7. Status post packed red blood cell transfusion x2. 8. Uncontrolled type 2 noninsulin-requiring diabetes mellitus with hyperglycemia. 9. Left foot Pseudomonas aeruginosa, group B Streptococcus with beta-hemolytic left foot, and left foot diabetic ulceration and possible diabetic left foot gangrene. 10. Proteinuria. 11. Microscopic hematuria. 12. Bacteriuria. 13. Left foot group B streptococcal beta-hemolytic and Pseudomonas aeruginosa left foot diabetic foot ulceration. 14. Episodic disorientation and confusion, etiology undetermined. 15. Questionable toxic metabolic encephalopathy. 16. Hyperglycemia secondary to uncontrolled diabetes mellitus. 17. Status post packed red blood cell transfusion x2. 18. Persistent refractory leukocytosis. 19. Left foot diabetic ulceration and diabetic cellulitis. 20. Dilated cardiomyopathy. 21. History of poor compliance and noncompliance. 22. History of hyperuricemia and gout. 23. 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 24. Gait dysfunction. 25. Deconditioning. 1. Left foot diabetic ulceration and nonhealing diabetic ulceration with possible diabetic gangrene of the left foot and great toe and the left foot toes with group B Streptococcus and Pseudomonas aeruginosa, cellulitis and diabetic foot gangrene of the left foot. 2. Uncontrolled diabetes mellitus with elevated hemoglobin A1c. 3. Fever. 4. Questionable sepsis. 5. Tachycardia. 6. Possible sepsis versus systemic inflammatory response syndrome. 7. Fever. 8. Transient hypotension. 9. Dilated cardiomyopathy. 10. Persistent refractory leukocytosis. 11. Normocytic anemia status post packed red blood cell transfusion. 12. Granulocytosis. 13. Acute kidney injury with underlying chronic kidney disease, stage IV. 14. Uncontrolled diabetes mellitus with hyperglycemia and an elevated hemoglobin A1c and hyperfructosemia. 15. History of poor compliance and noncompliance. 16. History of hyperuricemia and gout. 17. Severe peripheral vascular disease. 18. History of severe peripheral vascular disease of the lower extremity. 19. Severe mitral and tricuspid regurgitation. 20. Cardiomyopathy with ejection fraction of around 35%. 21. History of poor compliance. 22. History of chronic osteomyelitis of the left foot and partial amputation of the left foot second toe. 1. Fever. 2. Sinus tachycardia. 3. Pseudomonas nose group. Group B streptococcus group B beta hemolytic left foot diabetic foot ulcerations and cellulitis and gangrene. 4. Severe peripheral vascular disease. 5. Persistent refractory leukocytosis with granulocytosis. 6. Anemia with decreasing hemoglobin/hematocrit. 7. Elevated erythrocyte sedimentation rate of 122. 8. Chronic kidney disease, stage 3. 9. Hyperglycemia secondary to uncontrolled diabetes mellitus with hemoglobin A1c of 8.6 and hyper fructose anemia. 10. Transaminitis. 11. Iron-deficiency anemia. 12. Hypertriglyceridemia. 13. Elevated C-reactive protein of greater than 15. 14. Lactic acidosis. 15. Status post packed red blood cell transfusions x2. 16. Left foot erosive changes. 17. Severe peripheral vascular disease of bilateral popliteal trifurcation and tibial disease with normal resting ankle-brachial indices. 18. Chronic osteomyelitis of the left foot with bony destruction and sclerosis around the first metatarsophalangeal joint and partial amputation of the second proximal phalanx. 19. Severe degenerative joint disease of the left midfoot. 20. Left axis deviation. 21. Acute kidney injury with underlying chronic kidney disease. 22. Metabolic acidosis. 23. Hypertensive diabetic chronic kidney disease stage 3 without proteinuria. 24. Monoclonal gammopathy of unknown significance. 25. Severe mitral, tricuspid regurgitation with cardiomyopathy, left ventricular ejection fraction of 35% to 40%. 26. Left foot diabetic foot ulceration and gangrene. 27. Congestive heart failure with reduced ejection fraction. 28. Nonhealing left foot diabetic ulceration. 29. Sepsis with left foot cellulitis and diabetic foot ulceration with Pseudomonas secondary to Pseudomonas aeruginosa and Streptococcus group B beta hemolytic Streptococcus. 30. Questionable and possible delirium versus encephalopathy. 31. Gait dysfunction. 32. Deconditioning. 33. Constipation. 34. Hypovitaminosis D. 35. Prostatic hypertrophy. 36. Hyperlipidemia. 37. Hyperuricemia. 38. Hyperglycemia. 39. Uncontrolled diabetes mellitus with hyperglycemia. 40. Gait dysfunction. 41. History of poor compliance and noncompliance. 1. Left foot Pseudomonas aeruginosa and group B beta hemolytic strep, left foot diabetic foot ulceration and cellulitis. 2. Sepsis secondary to Pseudomonas aeruginosa and group B beta hemolytic strep, left diabetic foot ulceration and cellulitis. 3. Hypertension. 4. Tachycardia. 5. Anemia. 6. Status post packed red blood cell transfusion one unit. 7. Leukocytosis with granulocytosis. 8. Elevated erythrocyte sedimentation rate of 122. 9. Iron-deficiency. 10. Acute kidney injury with underlying chronic kidney disease, stage IV. 11. Uncontrolled diabetes mellitus with hyperglycemia and elevated hemoglobin A1c of 8.6 and elevated fructose, a mean of 329. 12. Transient lactic acidosis. 13. Transaminitis. 14. Hypertriglyceridemia. 15. Elevated C-reactive protein of greater than 15. 16. Gait dysfunction. 17. Deconditioning. 18. Metabolic acidosis. 19. 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 20. Severe mitral, tricuspid regurgitation and systolic congestive heart failure. 21. Left foot cellulitis and left foot diabetic ulceration. 22. Left diabetic foot ulceration and possible gangrene or pre-gangrenous condition of the left foot toes. 23. Left foot second digit amputation. 24. Peripheral vascular disease. 25. Left foot second toe amputation with cyanosis and mummification of the toes and forefoot of the left foot. 26. Severe tibial disease of the lower extremity. 27. Peripheral vascular disease. 28. Anemia of chronic disease. 29. Bilateral popliteal trifurcation and tibial disease. 30. Left anterior hemiblock. 1. Left foot Pseudomonas aeruginosa and group B Streptococcus beta hemolytic left foot cellulitis and diabetic foot ulcer. 2. Severe peripheral vascular disease of the lower extremity. 3. Normocytic anemia with decreasing hemoglobin. 4. Leukocytosis with granulocytosis. 5. Uncontrolled diabetes mellitus with hyperglycemia. 6. Acute kidney injury with underlying chronic kidney disease stage III/IV. 7. Transaminitis. 8. Probably anemia of chronic kidney disease. 9. Acute kidney injury with underlying chronic kidney disease. 10. Metabolic acidosis. 11. Hypertensive diabetic chronic kidney disease. 12. [id number] mitral regurgitation and [id number] tricuspid regurgitation. 13. Dilated cardiomyopathy with ejection fraction of 35%. 14. Sepsis. 15. Hypertension. 16. Gait dysfunction. 17. Deconditioning. 18. Bilateral lower extremity peripheral vascular disease. 19. History of poor compliance and noncompliance. 20. History of hyperuricemia and gout. 1. Left foot cellulitis versus gangrene versus pregangrenous state. 2. Sepsis. 3. Tachycardia. 4. Transient episodic hypotension. 5. Leukocytosis with granulocytosis 6. Elevated erythrocyte sedimentation rate of 122. 7. Normocytic anemia. 8. Chronic kidney disease stage 4 with acute kidney injury. 9. Uncontrolled noninsulin-requiring diabetes mellitus with hyperglycemia and hemoglobin A1c of 8.6. 10. Possible iron-deficiency. 11. Hypertriglyceridemia. 12. Elevated C-reactive protein of greater than 15. 13. Transient lactic acidosis. 14. Transaminitis. 15. Deconditioning. 16. Gait dysfunction. 17. Anemia with decreasing hemoglobin and hematocrit. 18. Metabolic acidosis. 19. Diabetic hypertensive chronic kidney disease. 20. Chronic kidney disease stage 3 without proteinuria. 21. Severe mitral and tricuspid regurgitation. 22. Systolic congestive heart failure. 23. Dilated ischemic cardiomyopathy, etiology undetermined. 1. Left foot cellulitis with diabetic foot disease and possible abscess versus possible osteomyelitis. 2. History of left foot second toe amputation. 3. Hypertension. 4. Tachycardia. 5. Fever. 6. Poor compliance and noncompliance. 7. Leukocytosis with granulocytosis. 8. Normocytic anemia. 9. Elevated erythrocyte sedimentation rate of 122. 10. Chronic kidney disease, stage IV with acute kidney injury. 11. Transient lactic acidosis. 12. History of hyperuricemia. 13. Hypertriglyceridemia. 14. Aortic calcification. 15. Bilateral lower extremity popliteal trifurcation and tibial peripheral vascular disease. 16. Left foot first metatarsophalangeal joint bony destruction and sclerosis, chronic osteomyelitis. 17. 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 18. 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 19. Sinus tachycardia with left anterior hemiblock. 20. Deconditioning. 21. History of poor compliance. 22. Chronic dilated ischemic cardiomyopathy with ejection fraction of . 23. History of hypertension. 24. History of heart failure with reduced ejection fraction of 35%. 25. Pulmonary hypertension with right ventricular systolic pressure of 40 mmHg. 26. Left ventricular global hypokinesis and moderately impaired left ventricular systolic function. 27. Mild aortic regurgitation. 28. Moderate to severe mitral regurgitation. 29. Moderate tricuspid regurgitation. 30. History of constipation. 31. Hypovitaminosis D. 32. History of iron-deficiency anemia. 33. Prostatic hypertrophy. 34. Insulin-requiring diabetes mellitus. 35. Hyperlipidemia. 36. History of peripheral vascular disease. 37. Hyperuricemia. 1. Left foot diabetic foot ulceration versus left foot abscess versus left foot toe osteomyelitis. 2. Tachycardia. 3. Leukocytosis with granulocytosis. 4. Questionable systemic inflammatory response syndrome. 5. Uncontrolled diabetes mellitus with hyperglycemia. 6. Chronic kidney disease stage IV. 7. Mild transaminitis. 8. History of hypertension. 9. Hyperlipidemia. 10. History of prostatic hypertrophy. 11. History of iron-deficiency anemia. 12. History of hypovitaminosis D. 13. History of dilated cardiomyopathy. 14. History of pulmonary hypertension. 15. History of moderate tricuspid regurgitation and mitral regurgitation. 16. Hyperuricemia. PLAN: At this time, the patient will be discharged to [facility], [place] under Dr. Ling's service after clearance by Surgery. The patient's discharge medications; Colace 100 mg three times a day, ferrous gluconate 324 mg three times a day, Drisdol 50,000 units weekly, Flomax 0.4 mg daily, heparin 5000 subcu every 8 hours, Humalog medium dose sliding scale coverage with Humulin NPH 17 units with breakfast and dinner, MiraLax 17 g twice a day, Nephro-Sumit 1 tablet daily, midodrine 10 mg three times a day, Protonix 40 mg daily, Tylenol 650 mg p.o. suppository every 6 hours p.r.n., Ecotrin 81 mg p.o. daily, Lipitor 20 mg daily, Lopressor 25 mg twice a day, Nephro-Sumit 1 tablet daily, Pletal 50 mg twice a day, ProAmatine 10 mg three times a day, Protonix 40 mg daily, Xopenex nebulizer 0.63 mg three times a day p.r.n., allopurinol 100 mg daily. At this time, the patient is awaiting Surgical clearance for discharge to [facility]. The patient's family is in agreement and has been informed about the patient's condition, diagnosis, and discharge planning options. Time spent in the discharge process more than 45 minutes. Dictated and electronically signed, not read. Niranjan Ling MD [facility]
== END 2018-12-14 17:52 | DRG 853 ==
LOC: ED 11:23 → ERH 15:06 → 5RSO 16:57
PROVIDERS: ADMIT Internal Medicine; ATTEND Internal Medicine
PROC: 30233N1 Transfusion of Nonautologous Red Blood Cells into Peripheral Vein, Percutaneous Approach (ICD-10-PCS; 2018-11-19)
PROC: 0JDR0ZZ Extraction of Left Foot Subcutaneous Tissue and Fascia, Open Approach (ICD-10-PCS; 2018-11-25)
PROC: 0HBRXZZ Excision of Toe Nail, External Approach (ICD-10-PCS; 2018-11-25)
PROC: 0HBRXZZ Excision of Toe Nail, External Approach (ICD-10-PCS; 2018-11-25)
PROC: 0J9R0ZX Drainage of Left Foot Subcutaneous Tissue and Fascia, Open Approach, Diagnostic (ICD-10-PCS; 2018-11-25)
PROC: 0Y6Q0Z0 Detachment at Left 1st Toe, Complete, Open Approach (ICD-10-PCS; principal; 2018-11-25 07:30)
PROC: 0Y6N0ZB Detachment at Left Foot, Partial 2nd Ray, Open Approach (ICD-10-PCS; 2018-11-25 07:30)
PROC: 0Y6J0Z1 Detachment at Left Lower Leg, High, Open Approach (ICD-10-PCS; 2018-12-10)
DX: A41.9 Sepsis, unspecified organism (principal); G92 Toxic encephalopathy; I42.0 Dilated cardiomyopathy; M86.172 Other acute osteomyelitis, left ankle and foot; E11.52 Type 2 diabetes mellitus with diabetic peripheral angiopathy with gangrene; L03.116 Cellulitis of left lower limb; N17.9 Acute kidney failure, unspecified; I13.0 Hypertensive heart and chronic kidney disease with heart failure and stage 1 through stage 4 chronic kidney disease, or unspecified chronic kidney disease; I50.22 Chronic systolic (congestive) heart failure; N18.4 Chronic kidney disease, stage 4 (severe); E87.2 Acidosis; N39.0 Urinary tract infection, site not specified; L03.115 Cellulitis of right lower limb; I96 Gangrene, not elsewhere classified; E44.1 Mild protein-calorie malnutrition; L02.612 Cutaneous abscess of left foot; E11.621 Type 2 diabetes mellitus with foot ulcer; L97.529 Non-pressure chronic ulcer of other part of left foot with unspecified severity; E11.22 Type 2 diabetes mellitus with diabetic chronic kidney disease; B96.4 Proteus (mirabilis) (morganii) as the cause of diseases classified elsewhere; B95.1 Streptococcus, group B, as the cause of diseases classified elsewhere; E11.65 Type 2 diabetes mellitus with hyperglycemia; E11.69 Type 2 diabetes mellitus with other specified complication; I25.5 Ischemic cardiomyopathy; D63.1 Anemia in chronic kidney disease; N40.0 Benign prostatic hyperplasia without lower urinary tract symptoms; I48.91 Unspecified atrial fibrillation; M1A.9XX1 Chronic gout, unspecified, with tophus (tophi); E55.9 Vitamin D deficiency, unspecified; E78.00 Pure hypercholesterolemia, unspecified; E78.1 Pure hyperglyceridemia; I25.10 Atherosclerotic heart disease of native coronary artery without angina pectoris; I08.1 Rheumatic disorders of both mitral and tricuspid valves; I27.20 Pulmonary hypertension, unspecified; M81.0 Age-related osteoporosis without current pathological fracture; K59.00 Constipation, unspecified; M19.072 Primary osteoarthritis, left ankle and foot; N28.1 Cyst of kidney, acquired; E78.5 Hyperlipidemia, unspecified; I70.0 Atherosclerosis of aorta; D50.9 Iron deficiency anemia, unspecified; D47.2 Monoclonal gammopathy; Z91.19 Patient's noncompliance with other medical treatment and regimen; Z87.891 Personal history of nicotine dependence; Z79.84 Long term (current) use of oral hypoglycemic drugs